=== PATIENT | male | born 1960 | race Caucasian/White ===

== ENCOUNTER 2018-06-16 16:07 | Emergency (ER) | payer BC, SELFPAY ==
[2018-06-06 08:34] VITALS: BMI 25.7
[2018-06-16 16:08] VITALS: BP 142/78; PULSE 81; RESP 16; TEMP 36.4; O2SAT 95; BMI 25.9
--- NOTE | 2018-06-16 16:10 | RAD_ITS ---
STUDY: X-RAY - RIGHT SHOULDER REASON FOR EXAM: Male, 57 years old. Right shoulder pain after a fall TECHNIQUE: 4 view(s) of the shoulder. COMPARISON: None. FINDINGS: Normal glenohumeral articulation. There is degenerative arthrosis of the acromioclavicular joint without inferior osseous spur formation. Normal acromion. Normal humeral head and visualized proximal humerus. The soft tissue structures are unremarkable. Normal visualized pulmonary apex. RAD/Shoulder min 2 Views IMPRESSION: Acromioclavicular joint arthrosis. No fracture or malalignment. Electronically Signed: Heath Iraheta MD at 16:30 EDT , Service support ,
[2018-06-16 18:34] VITALS: RESP 14
--- NOTE | 2018-06-16 18:51 | ED.DCSUM_ITS ---
- ER Visit Summary Date of Service: 06/16/18 Chief Complaint: Right shoulder pain History of Present Illness: The patient is a 57 M with a mechanical slip and fall today landing on his right shoulder. He is complaining of focal pain to the right shoulder. He has no paresthesias. Patient has a history of prostate cancer with bone metastases. Physical Examination: Vital signs unremarkable. Patient sitting upright in bed no acute distress. Head neck examination was no sign of trauma. Heart is regular rate and rhythm. Lung sounds are clear. Right upper extremity examination reveals focal tenderness at the shoulder joint itself. No sign of dislocation. He has no tenderness over the mid to distal humerus or forearm. He has strong distal pulses. Test Results: Right shoulder x-rays were obtained per nursing protocol and show AC joint arthrosis. No evidence of fracture. Emergency Department Course and Treatment: Patient was given p.o. Tylenol and placed in a sling. He does not wish for anything stronger for pain. Treatment Plan: [] Disposition: Discharge Impression: Right shoulder contusion This note was generated with [employer] dictation software. It may contain incorrect words, spelling, and punctuation that were not noted in review of the chart prior to signing ED Disposition - Plan for ED Patient: Referrals: Luis Cooney MD [Primary Care Provider] -
--- NOTE | 2018-06-16 18:51 | ED.DEP ---
ED Disposition - Plan for ED Patient: Disposition: Home or Assisted Living Instructions: ED Contusion Upper Ext Referrals: Luis Cooney MD [Primary Care Provider] -
[2018-06-16] MEDS: Acetaminophen 500 MG Tablet 1000 MG PO (19:00)
[2018-06-16 19:01] VITALS: RESP 18; O2SAT 99
== END 2018-06-16 19:02 | disposition home or self-care (01) ==
PROVIDERS: Emergency Provider Emergency Medicine; Family Provider Internal Medicine Hematology & Oncology; PCP Internal Medicine Hematology & Oncology
DX: S40.011A Contusion of right shoulder, initial encounter (principal); W01.0XXA Fall on same level from slipping, tripping and stumbling without subsequent striking against object, initial encounter; Y93.9 Activity, unspecified; Y92.9 Unspecified place or not applicable
CPT/HCPCS: 73030; 99283

== ENCOUNTER → 2018-07-31 10:10 | Outpatient (CLI) | payer SELFPAY ==
[2018-07-09 09:34] VITALS: BMI 25.9
[2018-07-23 10:03] VITALS: BMI 26.2
--- NOTE | 2018-07-31 10:12 | NM_ITS ---
CLINICAL: 57-year-old male with apparent history of carcinoma of the prostate with recent traumatic fall and resultant right shoulder pain. WHOLE BODY 99m Tc MDP RADIONUCLIDE BONE SCINTIGRAPHY COMPARISON: Plain film radiograph report 06/16/2018, prior whole body bone scintigraphy study dated 12/26/2017 FINDINGS: Following the intravenous administration of 26.8 mCi of 99m Tc MDP, whole body bone images reveal: 1. Focal increased radiopharmaceutical concentration remains apparent in the third thoracic vertebra posteriorly in the midline. 2. Enhanced tracer uptake is persistently defined in the acromioclavicular, sternoclavicular and glenohumeral compartments of both shoulders, first and 12th thoracic vertebra posteriorly on the left and right, eighth thoracic vertebra posteriorly on the left, fifth lumbar vertebra posteriorly on the right, the left posterior midline sacrum, left hip, right-left elbows, left wrist, both knees and right ankle. 3. The remaining skeletal structures are scintigraphically unremarkable with normal-appearing renal images and urinary bladder activity identified. NM/Bone Scan Whole Body IMPRESSION: 1. The increased radiopharmaceutical concentration identified in the third thoracic vertebra may be further investigated with plain film radiography in the setting of known prostate carcinoma if not previously obtained. 2. Degenerative arthritis remains apparent in the thoracic and lumbar spine, sacrum, left hip, bilateral shoulders elbows bilaterally, left wrist, right-left knees and right ankle articulation. 3. Overall compared to the previous whole body bone scintigraphy study dated 12/26/2017, the persistent increase in tracer uptake noted in the third thoracic vertebra warrants further evaluation with plain film radiography is not previously obtained. Otherwise, there is no significant interval change compared to the prior examination. Electronically Signed: Art Addison DO at 10:40 EDT Tel , Service support ,
== END ==
PROVIDERS: Family Provider Family Medicine; PCP Family Medicine; Referring Provider Internal Medicine Hematology & Oncology; Visit Provider Internal Medicine Hematology & Oncology
DX: C61 Malignant neoplasm of prostate (principal); C77.9 Secondary and unspecified malignant neoplasm of lymph node, unspecified; C79.51 Secondary malignant neoplasm of bone; Z79.899 Other long term (current) drug therapy
CPT/HCPCS: 78306

== ENCOUNTER → 2019-03-19 10:18 | Outpatient (CLI) | payer BC, SELFPAY ==
[2019-02-07 11:35] VITALS: BMI 25.4
--- NOTE | 2019-03-19 10:19 | NM_ITS ---
CLINICAL: 58-year-old male with reported history of carcinoma of the prostate. WHOLE BODY 99m Tc MDP RADIONUCLIDE BONE SCINTIGRAPHY COMPARISON: Previous whole body bone scintigraphy study dated 07/31/2018 FINDINGS: Following the intravenous administration of approximately 25.0 mCi of 99m Tc MDP, whole body bone images reveal: 1. Increased radiopharmaceutical concentration is defined in the upper cervical spine posteriorly on the right, lower cervical spine posteriorly on the left, bilateral shoulders, first, third and 12th thoracic vertebra, fifth lumbar vertebra and sacrum, left-right wrists, bilateral elbows, both hip articulations, knees bilaterally. 2. The remaining skeletal structures are scintigraphically unremarkable with normal-appearing renal images and urinary bladder activity identified. The distal lower extremities were not included in the acquisitions provided. NM/Bone Scan Whole Body IMPRESSION: 1. The increase in radiopharmaceutical concentration identified in the cervical thoracic and lumbar spine, both shoulders, sacrum, wrist and elbow articulations bilaterally, right and left hips, both knees is commensurate with degenerative arthritis. 2. Overall compared to the previous whole body bone scintigraphy study dated 07/31/2018, there is no significant interval change. There is no present typical scintigraphic evidence of diffuse axial skeletal metastatic disease. Electronically Signed: Art Addison DO at 10:58 EST Tel , Service support ,
[2019-03-19 10:48] LABS: Absolute Lymphocyte Count 1.51 X10^3/uL (0.83-4.51); Absolute Neutrophil Count 2.3 X10^3/uL (2.0-7.7); Basophil# 0.02 X10^3/uL; Basophil% 0.4 % (0-1); Eosinophil# 0.26 X10^3/uL; Eosinophils% 5.7 % (0-5); Hematocrit 44.3 % (40-54); Hemoglobin 14.8 g/dL (13.0-16.5); Lymphocyte # 1.51 X10^3/ul (4.0); Mean Corp Hgb Conc 33.4 g/dL (32-36); Mean Corpuscular Hgb 29.9 pg (27.0-32.0); Mean Corpuscular Volume 89.5 fL (80-94); Monocyte# 0.44 X10^3/uL; Monocyte% 9.6 % (0-10); NRBC Flagged by Analyzer 0 % (0-5); Neutrophil # 2.33 X10^3/uL (2.7-7.7); Neutrophil % 50.9 % (47-70); Platelet Count 250 K/mm3 (150-450); RBC Distribution Width CV 11.6 % (11.6-14.6); RBC Distribution Width SD 37.8 fl (35.1-43.9); Red Blood Count 4.95 M/mm3 (4.6-6.2); White Blood Count 4.6 K/mm3 (4.4-11.0)
[2019-03-19 11:20] LABS: PSA,Total- Diagnostic 0.48 ng/mL (0.0-4.0)
[2019-03-19 11:24] LABS: AST(SGOT) 31 U/L (15-37); Alanine Aminotransfer ALT/SGPT 58 U/L (16-61); Albumin, Serum 3.8 g/dL (3.2-5.0); Alkaline Phosphatase 61 U/L (45-117); Anion Gap 5 (5-15); BUN 22 mg/dL (7-18); BUN/Creat Ratio 23.6 RATIO (10-20); Chloride 104 mmol/L (98-107); Creatinine, Serum 0.93 mg/dL (0.70-1.30); EST Glomerular Filtration Rate 89 mL/min (>60); Est Glom Filt Rate - Afr Amer 107 mL/min (>60); Globulin 3.7 g/dL (2.2-4.2); Glucose 94 mg/dL (74-106); Potassium 4.4 mmol/L (3.5-5.1); Protein, Total 7.5 g/dL (6.4-8.2); Sodium Level 138 mmol/L (136-145)
[2019-03-19 18:32] LABS: Xtra Tube EP Lab EXTRA TUBE
== END ==
PROVIDERS: Referring Provider Internal Medicine Hematology & Oncology; Visit Provider Internal Medicine Hematology & Oncology
DX: C61 Malignant neoplasm of prostate (principal); C79.51 Secondary malignant neoplasm of bone; C77.9 Secondary and unspecified malignant neoplasm of lymph node, unspecified
CPT/HCPCS: 36415; 78306; 80053; 84153; 85025

== ENCOUNTER → 2019-10-17 07:54 | Outpatient (CLI) | payer BC, SELFPAY ==
[2019-09-10 11:33] VITALS: BMI 25.2
--- NOTE | 2019-10-17 07:55 | NM_ITS ---
CLINICAL: 59-year-old male with reported history of carcinoma of the prostate. WHOLE BODY 99m Tc MDP RADIONUCLIDE BONE SCINTIGRAPHY COMPARISON: Previous whole body bone scintigraphy study dated 03/19/2019 FINDINGS: Following the intravenous administration of 27.0 mCi of 99m Tc MDP, whole body bone images reveal: 1. Increased radiopharmaceutical concentration is redemonstrated in the upper cervical spine posteriorly on the right, mid cervical spine posteriorly on the left, third thoracic vertebra posteriorly in the midline, the acromioclavicular, sternoclavicular and glenohumeral compartments of both shoulders, the left elbow, fifth lumbar vertebra posteriorly on the right, left posterior sacrum, bilateral knees, right ankle, the left wrist. 2. The remaining skeletal structures are scintigraphically unremarkable with normal-appearing renal images and urinary bladder activity identified. NM/Bone Scan Whole Body IMPRESSION: 1. The increase in radiopharmaceutical distribution currently defined in the cervical, thoracic and lumbar spine, sacrum, bilateral shoulders, left elbow, right-left knees, the right ankle and left wrist are commensurate with degenerative arthritis. 2. Overall compared to the previous whole body bone scintigraphy study dated 03/19/2019, there is no significant interval change. No current typical scintigraphic evidence of diffuse axial skeletal metastatic disease is demonstrated on the present examination. Electronically Signed: Art Addison DO at 23:37 EDT Tel , Service support ,
[2019-10-17 08:14] LABS: Absolute Lymphocyte Count 1.91 X10^3/uL (0.83-4.51); Absolute Neutrophil Count 2.4 X10^3/uL (2.0-7.7); Basophil# 0.04 X10^3/uL; Basophil% 0.8 % (0-1); Eosinophil# 0.44 X10^3/uL; Eosinophils% 8.3 % (0-5); Hematocrit 43.7 % (40-54); Hemoglobin 14.4 g/dL (13.0-16.5); Lymphocyte # 1.91 X10^3/ul (4.0); Lymphocyte % 36.2 % (19-41); Mean Corpuscular Hgb 30.1 pg (27.0-32.0); Mean Corpuscular Volume 91.2 fL (80-94); Mean Platelet Vol. 9.2 fl (6.2-12.0); Monocyte# 0.52 X10^3/uL; Monocyte% 9.8 % (0-10); NRBC Flagged by Analyzer 0 % (0-5); Neutrophil # 2.35 X10^3/uL (2.7-7.7); Neutrophil % 44.5 % (47-70); Platelet Count 235 K/mm3 (150-450); RBC Distribution Width CV 12.1 % (11.6-14.6); RBC Distribution Width SD 40.7 fl (35.1-43.9); Red Blood Count 4.79 M/mm3 (4.6-6.2); White Blood Count 5.3 K/mm3 (4.4-11.0)
[2019-10-17 08:48] LABS: ALB/GLOB Ratio 1.1 RATIO (0.9-2.4); AST(SGOT) 21 U/L (15-37); Alanine Aminotransfer ALT/SGPT 32 U/L (16-61); Albumin, Serum 3.7 g/dL (3.2-5.0); Alkaline Phosphatase 61 U/L (45-117); Anion Gap 3 (5-15); BUN 20 mg/dL (7-18); BUN/Creat Ratio 20.9 RATIO (10-20); Calcium,Total 9.2 mg/dL (8.5-10.1); Chloride 104 mmol/L (98-107); Creatinine, Serum 0.96 mg/dL (0.70-1.30); EST Glomerular Filtration Rate 86 mL/min (>60); Est Glom Filt Rate - Afr Amer 104 mL/min (>60); Globulin 3.5 g/dL (2.2-4.2); Glucose 81 mg/dL (74-106); PSA,Total- Diagnostic 0.58 ng/mL (0.0-4.0); Potassium 3.9 mmol/L (3.5-5.1); Protein, Total 7.2 g/dL (6.4-8.2); Sodium Level 137 mmol/L (136-145)
[2019-10-17 15:59] LABS: Xtra Tube EP Lab EXTRA TUBE
== END ==
PROVIDERS: Referring Provider Internal Medicine Hematology & Oncology; Visit Provider Internal Medicine Hematology & Oncology
DX: C61 Malignant neoplasm of prostate (principal); C79.51 Secondary malignant neoplasm of bone; C77.9 Secondary and unspecified malignant neoplasm of lymph node, unspecified
CPT/HCPCS: 36415; 78306; 80053; 84153; 85025

== ENCOUNTER → 2020-01-10 07:44 | Outpatient (CLI) | payer BC, SELFPAY ==
[2019-10-22 11:23] VITALS: BMI 25.3
[2020-01-10 08:15] LABS: Absolute Lymphocyte Count 2.23 X10^3/uL (0.83-4.51); Absolute Neutrophil Count 1.7 X10^3/uL (2.0-7.7); Basophil# 0.03 X10^3/uL; Basophil% 0.6 % (0-1); Eosinophil# 0.41 X10^3/uL; Eosinophils% 8.4 % (0-5); Hematocrit 43.6 % (40-54); Hemoglobin 14.3 g/dL (13.0-16.5); Lymphocyte # 2.23 X10^3/ul (4.0); Lymphocyte % 45.4 % (19-41); Mean Corp Hgb Conc 32.8 g/dL (32-36); Mean Corpuscular Hgb 30.2 pg (27.0-32.0); Mean Corpuscular Volume 92.2 fL (80-94); Mean Platelet Vol. 9.2 fl (6.2-12.0); Monocyte# 0.52 X10^3/uL; Monocyte% 10.6 % (0-10); NRBC Flagged by Analyzer 0 % (0-5); Neutrophil # 1.71 X10^3/uL (2.7-7.7); Neutrophil % 34.8 % (47-70); Platelet Count 223 K/mm3 (150-450); RBC Distribution Width CV 11.9 % (11.6-14.6); RBC Distribution Width SD 40.7 fl (35.1-43.9); Red Blood Count 4.73 M/mm3 (4.6-6.2); White Blood Count 4.9 K/mm3 (4.4-11.0)
[2020-01-10 08:46] LABS: ALB/GLOB Ratio 1.1 RATIO (0.9-2.4); AST(SGOT) 20 U/L (15-37); Alanine Aminotransfer ALT/SGPT 30 U/L (16-61); Albumin, Serum 3.7 g/dL (3.2-5.0); Alkaline Phosphatase 52 U/L (45-117); Anion Gap 4 (5-15); BUN 18 mg/dL (7-18); BUN/Creat Ratio 20.1 RATIO (10-20); Calcium,Total 9.3 mg/dL (8.5-10.1); Chloride 106 mmol/L (98-107); EST Glomerular Filtration Rate 93 mL/min (>60); Est Glom Filt Rate - Afr Amer 112 mL/min (>60); Globulin 3.5 g/dL (2.2-4.2); Glucose 91 mg/dL (74-106); PSA,Total- Diagnostic 1.04 ng/mL (0.0-4.0); Protein, Total 7.2 g/dL (6.4-8.2); Sodium Level 141 mmol/L (136-145)
[2020-01-10 15:47] LABS: Xtra Tube EP Lab EXTRA TUBE
== END ==
PROVIDERS: Referring Provider Internal Medicine Hematology & Oncology; Visit Provider Internal Medicine Hematology & Oncology
DX: C61 Malignant neoplasm of prostate (principal); C77.9 Secondary and unspecified malignant neoplasm of lymph node, unspecified; C79.51 Secondary malignant neoplasm of bone
CPT/HCPCS: 36415; 80053; 84153; 85025

== ENCOUNTER → 2020-03-18 10:02 | Outpatient (CLI) | payer BC, SELFPAY ==
[2020-01-14 13:53] VITALS: BMI 25.4
[2020-02-25 13:31] VITALS: BMI 25.7
--- NOTE | 2020-03-18 10:04 | NM_ITS ---
CLINICAL: 59-year-old male with history of carcinoma of the prostate. WHOLE BODY 99m Tc MDP RADIONUCLIDE BONE SCINTIGRAPHY COMPARISON: Previous whole body bone scintigraphy study dated 10/17/2019 FINDINGS: Following the intravenous administration of approximately 25.0 mCi of 99m Tc MDP, whole body bone images reveal: 1. There is persistent increased tracer concentration observed in the cervical, thoracic and lumbar spine, bilateral shoulders, both knee articulations, right and left wrists, the sacrum. 2. The remaining skeletal structures are scintigraphically unremarkable with normal-appearing renal images and urinary bladder activity identified. NM/Bone Scan Whole Body IMPRESSION: 1. The increase in tracer distribution defined in the cervical, thoracic and lumbar spine, sacrum, right and left shoulders, knees bilaterally, both wrist articulations is commensurate with degenerative arthritis. 2. Overall compared to the previous whole body bone scintigraphy study dated 10/17/2019, there is no significant interval change. No current typical scintigraphic evidence of skeletal metastatic disease is demonstrated on the current examination. Electronically Signed: Art Addison DO at 23:08 EST Tel , Service support ,
== END ==
PROVIDERS: Referring Provider Internal Medicine Hematology & Oncology; Visit Provider Internal Medicine Hematology & Oncology
DX: C61 Malignant neoplasm of prostate (principal); C77.9 Secondary and unspecified malignant neoplasm of lymph node, unspecified; C79.51 Secondary malignant neoplasm of bone
CPT/HCPCS: 78306

== ENCOUNTER → 2020-04-20 13:27 | Outpatient (CLI) | payer BC, SELFPAY ==
[2020-03-31 13:34] VITALS: BMI 25.7
--- NOTE | 2020-04-20 13:40 | RAD_ITS ---
STUDY: X-RAY CHEST REASON FOR EXAM: Male, 59 years old. NO CHEST COMPLAINTS, PROSTATE CA TECHNIQUE: PA and lateral views of the chest. COMPARISON: CT chest September 21, 2017 FINDINGS: The lungs are clear and expanded. There is no demonstrated pleural abnormality. Normal size heart. Normal mediastinum and jorge. Normal visualized pulmonary arteries. Normal visualized aortic arch and descending thoracic aorta. There are diffuse degenerative changes of the visualized thoracic spine. There is mild bony osteopenia. Normal visualized ribs, clavicles, and shoulders. There is no demonstrated abnormality of the visualized soft tissue structures of the upper abdomen. RAD/Chest PA and Lateral IMPRESSION: No demonstrated acute cardiopulmonary process. Electronically Signed: Prachi Graham MD at 4:03 EST Tel , Service support ,
--- NOTE | 2020-04-20 13:40 | CT_ITS ---
STUDY: CT ABDOMEN AND PELVIS WITH CONTRAST REASON FOR EXAM: Male, 59 years old. F/U PROSTATE CANCER. No surgery. Last chemo 1.5yr ago. No problems RADIATION DOSAGE (If Supplied By Facility): CTDIvol = ( 12.30 ) mGy, DLP = ( 809.01 ) mGycm TECHNIQUE: Transaxial images were obtained from the dome of the diaphragm to the symphysis pubis with oral contrast. Oral and amp; IV Read i-CAT and amp; 100mL Isovue-300 was administered. Sagittal and coronal images were reconstructed. Individualized dose optimization techniques were used for this CT. COMPARISON: Comparison CT chest September 21, 2017. FINDINGS: The visualized lung bases are unremarkable. The visualized portions of the heart are within normal limits. Normal liver. Normal gallbladder and extrahepatic biliary system. Normal spleen. Normal pancreas. Normal bilateral adrenal glands. Normal right kidney. There is a small cyst in the left kidney kidney measuring 4.3 mm. There is a minimal hiatal hernia. Normal small intestine. There is abundant stool in the colon from the cecum to the rectum. The appendix is visualized and appears normal. Normal abdominal aorta. Normal inferior vena cava. There are reactive potentially metastatic lymph nodes in the left and midline retroperitoneum measuring 1.2 cm and 1.5 cm and 1.0 cm. Distal to the bifurcation there is a lymph node to the left of midline measuring 1.0 cm. There is a lymph node measuring 2.3 x 1.9 cm. Image #70. There is mild stranding in the left iliac chain. There is a lymph node measuring 1.9 cm. There is a lymph node in the left iliac chain measuring 2.2 x 1.6 cm. Prostate measures 2.2 x 4.1 cm. There is a small umbilical hernia containing fat. There is multilevel spondylosis disc space narrowing. At the level of L3-L4 L4-L5 there is severe disc space narrowing spondylosis, vacuum phenomenon. There is bilateral neural foraminal narrowing. There is neural foramina narrowing at L4-L5 with moderate neural foraminal narrowing without central stenosis. There is a pars defect at the level of L5. There is disc space narrowing and slight anterolisthesis. The bony structures are minimally inhomogeneous. There are not multiple solid lytic or sclerotic lesions. There is a nonspecific 4 mm sclerotic lesion within the right symphysis pubis. CT/Abdomen/Pelvis WITH Contrast IMPRESSION: Left-sided retroperitoneal lymphadenopathy. Lymphadenopathy in the left iliac chain. Recommend correlation with clinical history. Although potentially metastatic disease could have this appearance consider possible inflammatory change versus the possibility of etiologies such as lymphoma. Consider left lower extremity venous ultrasound. Minimal lower lobe atelectasis and/or scarring. No appendicitis. Small cyst left kidney. Constipation. Normal sized prostate. Multilevel degenerative change in the lumbar spine including pars defect L5. Electronically Signed: Prachi Graham MD at 5:15 EST Tel , Service support ,
[2020-04-20 13:55] LABS: CREATININE FINGERSTICK 1.1 mg/dL (0.70-1.30)
[2020-04-20 14:17] LABS: Absolute Lymphocyte Count 1.64 X10^3/uL (0.83-4.51); Absolute Neutrophil Count 1.9 X10^3/uL (2.0-7.7); Basophil# 0.03 X10^3/uL; Basophil% 0.7 % (0-1); Eosinophil# 0.21 X10^3/uL; Eosinophils% 4.9 % (0-5); Hematocrit 44.8 % (40-54); Hemoglobin 14.5 g/dL (13.0-16.5); Lymphocyte # 1.64 X10^3/ul (4.0); Lymphocyte % 38.5 % (19-41); Mean Corp Hgb Conc 32.4 g/dL (32-36); Mean Corpuscular Hgb 29.4 pg (27.0-32.0); Mean Corpuscular Volume 90.7 fL (80-94); Mean Platelet Vol. 9.7 fl (6.2-12.0); Monocyte# 0.49 X10^3/uL; Monocyte% 11.5 % (0-10); NRBC Flagged by Analyzer 0 % (0-5); Neutrophil # 1.88 X10^3/uL (2.7-7.7); Neutrophil % 44.2 % (47-70); Platelet Count 260 K/mm3 (150-450); RBC Distribution Width CV 12.2 % (11.6-14.6); RBC Distribution Width SD 40.5 fl (35.1-43.9); Red Blood Count 4.94 M/mm3 (4.6-6.2); White Blood Count 4.3 K/mm3 (4.4-11.0)
[2020-04-20 14:58] LABS: ALB/GLOB Ratio 1.1 RATIO (0.9-2.4); AST(SGOT) 22 U/L (15-37); Alanine Aminotransfer ALT/SGPT 31 U/L (16-61); Albumin, Serum 3.9 g/dL (3.2-5.0); Alkaline Phosphatase 56 U/L (45-117); Anion Gap 6 (5-15); BUN 18 mg/dL (7-18); BUN/Creat Ratio 20.3 RATIO (10-20); Chloride 102 mmol/L (98-107); Creatinine, Serum 0.89 mg/dL (0.70-1.30); EST Glomerular Filtration Rate 93 mL/min (>60); Est Glom Filt Rate - Afr Amer 113 mL/min (>60); Globulin 3.7 g/dL (2.2-4.2); Glucose 95 mg/dL (74-106); PSA,Total- Diagnostic 1.87 ng/mL (0.0-4.0); Potassium 4.2 mmol/L (3.5-5.1); Protein, Total 7.6 g/dL (6.4-8.2); Sodium Level 137 mmol/L (136-145)
== END ==
PROVIDERS: Referring Provider Internal Medicine Hematology & Oncology; Visit Provider Internal Medicine Hematology & Oncology
DX: C61 Malignant neoplasm of prostate (principal); C77.9 Secondary and unspecified malignant neoplasm of lymph node, unspecified; C79.51 Secondary malignant neoplasm of bone
CPT/HCPCS: 36415; 71046; 74177; 80053; 84153; 85025; Q9967

== ENCOUNTER → 2020-08-05 13:03 | Outpatient (CLI) | payer BC, SELFPAY ==
[2020-06-30 14:45] VITALS: BMI 25.3
--- NOTE | 2020-08-05 13:07 | CT_ITS ---
STUDY: CT CHEST, ABDOMEN T PELVIS WITH CONTRAST REASON FOR EXAM: Male, 59 years old. FOLLOW UP METASTATIC PROSTATE CANCER RADIATION DOSAGE (If Supplied By Facility): CTDIvol = ( 13.55 ) mGy, DLP = ( 1194.29 ) mGycm TECHNIQUE: Transaxial imaging was performed following intravenous administration of IV 100mL Isovue-300. Multiplanar coronal and sagittal images were reformatted. Individualized dose optimization techniques were used for this CT. COMPARISON: Prior chest CT exam of 09/21/2017 and abdomen and pelvic CT exam of 04/20/2020 FINDINGS: CHEST Bibasilar platelike areas of fibrotic change modestly increased from prior exam without focal consolidation or other infiltrates. Stable 4 mm nodule of the right upper lobe, image 32 series 6. Normal heart and pericardium. Normal mediastinum. Normal hilar regions. Normal unenhanced pulmonary arteries. Minimal plaque and mild elongation of the thoracic aorta. New 6 mm osteoblastic lesion of T 13. He has 13 rib-bearing vertebral bodies. Stable 3 mm osteoblastic lesion of the sternum. ABDOMEN AND PELVIS Normal liver. Normal gallbladder and extrahepatic biliary system. Normal spleen. Normal pancreas. Normal bilateral adrenal glands. Normal right kidney. Stable subcentimeter cysts of the left kidney. Otherwise normal left kidney. Normal visualized stomach. Normal small intestine. Normal colon. The appendix is visualized and appears normal. Normal abdominal aorta. Normal inferior vena cava. Stable shotty left periaortic lymph nodes of the upper abdomen. Stable left iliac lymph nodes not changed in number or size. The largest group of juxtaposed nodes are to the left of the aortic and iliac bifurcation measuring approximately 3.2 x 4.60 cm similar in size to prior exam on comparable imaging. Additional stable enlarged lymph nodes in the left iliac chain and minimal shotty inguinal lymph nodes bilaterally. Subcutaneous nodules of the abdomen most likely secondary to injection. Minimal fatty umbilical hernia. Stable 3 mm osteoblastic lesion of S1. New 6 mm osteoblastic lesion at T 13. Stable 3 mm osteoblastic lesion of the superior right pubic ramus. 2 mm osteoblastic lesion of the inferior right pubic ramus. Normal urinary bladder. No enlargement of the prostate. CT/CT Chest, Abd, Pel w/Contrast IMPRESSION: No acute cardiopulmonary findings. Increase mild fibrotic bibasilar changes. Stable 4 mm nodule of the right upper lobe. Stable subcentimeter/shotty periaortic lymph nodes and stable adenopathy of the left iliac chain as described above. New faintly osteoblastic 6 mm lesion of T 13, 13 rib bearing vertebral bodies. Stable other osseous sclerotic lesions in the sternum, S1, right superior and inferior pubic rami. These are very small and dense and could be bone islands rather than metastatic disease. No additional acute abdominal or pelvic findings. Electronically Signed: Minerva Nelson MD at 17:17 EDT , Service support ,
[2020-08-05 13:31] LABS: CREATININE FINGERSTICK 0.9 mg/dL (0.70-1.30); EGFR FINGERSTICK > 60.0000 mL/min (>60)
== END ==
PROVIDERS: Referring Provider Internal Medicine Hematology & Oncology; Visit Provider Internal Medicine Hematology & Oncology
DX: C61 Malignant neoplasm of prostate (principal)
CPT/HCPCS: 71260; 74177; Q9967

== ENCOUNTER → 2020-08-07 10:15 | Outpatient (CLI) | payer BC, SELFPAY ==
[2020-06-30 14:45] VITALS: BMI 25.3
--- NOTE | 2020-08-07 10:19 | NM_ITS ---
CLINICAL: 59-year-old male with reported history of carcinoma of the prostate. WHOLE BODY 99m Tc MDP RADIONUCLIDE BONE SCINTIGRAPHY COMPARISON: Previous whole body bone scintigraphy study dated 03/18/2020 FINDINGS: Following the intravenous administration of 26.0 mCi of 99m Tc MDP, whole body bone images reveal: 1. Increased radiopharmaceutical concentration is currently defined in the acromioclavicular, sternoclavicular and glenohumeral compartments of both shoulders, mid cervical spine posteriorly on the left and right, third thoracic vertebra posteriorly in the midline, fifth lumbar vertebra posteriorly on the right, left posterior midline sacrum, bilateral elbows, both wrists, hands bilaterally, right-left knees, medial compartment of the right ankle. 2. The remaining skeletal structures are scintigraphically unremarkable with normal-appearing renal images and urinary bladder activity identified. NM/Bone Scan Whole Body IMPRESSION: 1. The increase in tracer distribution defined in the bilateral shoulders, right and left elbows, wrists bilaterally, bilateral hands, cervical, thoracic and lumbar spine and sacrum, both knee articulations and right ankle is most consistent with degenerative arthritis. 2. Overall compared to the previous whole body bone scintigraphy study dated 03/18/2020, there is no significant interval change. No current typical scintigraphic evidence of diffuse axial skeletal metastatic disease is noted on the current examination. Electronically Signed: Art Addison DO at 23:06 EDT Tel , Service support ,
== END ==
PROVIDERS: Referring Provider Internal Medicine Hematology & Oncology; Visit Provider Internal Medicine Hematology & Oncology
DX: C61 Malignant neoplasm of prostate (principal); C77.9 Secondary and unspecified malignant neoplasm of lymph node, unspecified; C79.51 Secondary malignant neoplasm of bone
CPT/HCPCS: 78306; A9503

== ENCOUNTER 2021-04-23 15:12 | Outpatient (CLI) | payer BC, SELFPAY ==
[2021-04-23 15:54] LABS: Absolute Lymphocyte Count 1.04 X10^3/uL (0.83-4.51); Absolute Neutrophil Count 3.7 X10^3/uL (2.0-7.7); Basophil# 0.02 X10^3/uL; Basophil% 0.4 % (0-1); Eosinophil# 0.03 X10^3/uL; Eosinophils% 0.6 % (0-5); Hematocrit 42.6 % (40-54); Hemoglobin 14.2 g/dL (13.0-16.5); Lymphocyte # 1.04 X10^3/ul (0.83-4.51); Mean Corp Hgb Conc 33.3 g/dL (32-36); Mean Corpuscular Hgb 30.3 pg (27.0-32.0); Mean Platelet Vol. 9.6 fl (6.2-12.0); Monocyte# 0.41 X10^3/uL; Monocyte% 7.9 % (0-10); NRBC Flagged by Analyzer 0 % (0-5); Neutrophil # 3.69 X10^3/uL (2.7-7.7); Neutrophil % 70.9 % (47-70); Platelet Count 243 K/mm3 (150-450); RBC Distribution Width CV 12.4 % (11.6-14.6); RBC Distribution Width SD 41.2 fl (35.1-43.9); Red Blood Count 4.68 M/mm3 (4.6-6.2); White Blood Count 5.2 K/mm3 (4.4-11.0)
[2021-04-23 16:27] LABS: ALB/GLOB Ratio 1.1 RATIO (0.9-2.4); AST(SGOT) 29 U/L (15-37); Alanine Aminotransfer ALT/SGPT 47 U/L (16-61); Albumin, Serum 3.6 g/dL (3.2-5.0); Alkaline Phosphatase 49 U/L (45-117); Anion Gap 5 (5-15); BUN 24 mg/dL (7-18); Calcium,Total 8.9 mg/dL (8.5-10.1); Chloride 108 mmol/L (98-107); EST Glomerular Filtration Rate 81 mL/min (>60); Est Glom Filt Rate - Afr Amer 98 mL/min (>60); Globulin 3.4 g/dL (2.2-4.2); Glucose 85 mg/dL (74-106); PSA,Total- Diagnostic 0.06 ng/mL (0.0-4.0); Potassium 3.9 mmol/L (3.5-5.1); Sodium Level 141 mmol/L (136-145)
== END 2021-04-23 23:59 | disposition home or self-care (01) ==
LOC: LAB 15:12
PROVIDERS: Visit Provider Nurse Practitioner Family
DX: C61 Malignant neoplasm of prostate (principal)
CPT/HCPCS: 36415; 80053; 84153; 85025

== ENCOUNTER → 2022-06-27 | Outpatient (CLI) | payer BC, SELFPAY ==
--- NOTE | 2022-06-27 10:30 | NM_ITS ---
CLINICAL: 61-year-old male with history of primary prostate carcinoma. WHOLE BODY 99m Tc MDP RADIONUCLIDE BONE SCINTIGRAPHY COMPARISON: Whole body bone scintigraphy study dated 08/07/2020 FINDINGS: Following the intravenous administration of 27.1 mCi of 99m Tc MDP, whole body bone images reveal: 1. There is increased radiopharmaceutical distribution noted in the acromioclavicular, sternoclavicular and glenohumeral compartments of both shoulders, the elbow and wrist articulations bilaterally, both knees, the mid cervical spine posteriorly on the right, the bilateral sacroiliac joints, the thoracic and lumbar vertebra. 2. Facilitated uptake is noted in the left anterior fourth rib at the costochondral junction 3. The remaining skeletal structures are scintigraphically unremarkable with normal-appearing renal images and urinary bladder activity identified. NM/Bone Scan Whole Body IMPRESSION: 1. The multifocal increase in radiopharmaceutical concentration defined in the bilateral shoulder, elbow and wrist articulations, the knees bilaterally, the cervical, thoracic and lumbar spine, the sacroiliac joints bilaterally consistent with degenerative arthritis. Correlation with plain film radiography is recommended in the thoracic, lumbar spine and pelvis. 2. Enhanced tracer distribution defined in the left anterior fourth rib the costochondral junction is most consistent with trauma-fracture. 3. Overall compared to the previous whole body bone scintigraphy study dated 08/07/2020, there is continued demonstration of diffuse degenerative changes with newly identified uptake noted in the thoracic and lumbar spine as well as pelvis warranting further evaluation with plain film x-ray. Electronically Signed: Art Addison, at 22:18 EDT ,
== END | disposition home or self-care (01) ==
PROVIDERS: PCP Physician Assistant; Referring Provider Internal Medicine Hematology & Oncology; Visit Provider Internal Medicine Hematology & Oncology
DX: C61 Malignant neoplasm of prostate (principal); C79.51 Secondary malignant neoplasm of bone; C77.9 Secondary and unspecified malignant neoplasm of lymph node, unspecified
CPT/HCPCS: 78306; A9503

== ENCOUNTER → 2022-07-06 | Outpatient (CLI) | payer BC, SELFPAY ==
--- NOTE | 2022-07-06 13:37 | CT_ITS ---
STUDY: CT CHEST, ABDOMEN T PELVIS WITH CONTRAST REASON FOR EXAM: Male, 61 years old. F/U METASTATIC PROSTATE CANCER; IV CONTRAST ONLY RADIATION DOSAGE (If Supplied By Facility): CTDIvol = ( 15.86 ) mGy, DLP = ( 1386.92 ) mGycm TECHNIQUE: Transaxial imaging was performed following intravenous administration of IV 100mL Isovue-300. Multiplanar coronal and sagittal images were reformatted. Individualized dose optimization techniques were used for this CT. COMPARISON: Comparison is made with prior examination dated August 05, 2020. FINDINGS: CHEST Stable small benign-appearing bilateral axillary lymph nodes. Stable mild degree of linear scarring at the lung bases. There is no demonstrated pleural abnormality. Normal heart and pericardium. Normal mediastinum. Normal hilar regions. Normal unenhanced pulmonary arteries. Normal aorta arch and descending thoracic aorta. There are multi-level degenerative changes of the thoracic spine. Stable 3 mm rounded sclerotic density in the posterior left side of the superior aspect of the body of the sternum. Stable focal sclerosis in the body of the T3 vertebrae. There is no demonstrated abnormality of the visualized upper abdomen. ABDOMEN Normal liver. Normal gallbladder and extrahepatic biliary system. Normal spleen. Normal pancreas. Normal bilateral adrenal glands. Normal right kidney. Normal left kidney. Normal visualized stomach. Normal small intestine. Normal colon. The appendix is visualized and appears normal. Normal abdominal aorta. Normal inferior vena cava. There is borderline retroperitoneal lymphadenopathy with enlarged nodes no greater than 10mm in the short axis diameter. Residual small lymph nodes are seen in the left iliac chain. These have decreased in size. There is a small umbilical hernia containing fat. There are diffuse degenerative changes of the visualized lumbar spine. PELVIS Normal urinary bladder. Normal visualized small intestine. Normal visualized colon. There is no pelvic fluid. There is no pelvic lymphadenopathy or mass lesion. Normal visualized pelvic arteries. CT/CT Chest, Abd, Pel w/Contrast IMPRESSION: Essentially stable examination except for interval decrease in size of the lymph nodes seen in the left iliac chain. Electronically Signed: Chucky Monsivais MD at 15:19 EDT ,
== END | disposition home or self-care (01) ==
LOC: CT 13:36
PROVIDERS: PCP Physician Assistant; Referring Provider Internal Medicine Hematology & Oncology; Visit Provider Internal Medicine Hematology & Oncology
DX: C61 Malignant neoplasm of prostate (principal); C79.51 Secondary malignant neoplasm of bone; C77.9 Secondary and unspecified malignant neoplasm of lymph node, unspecified
CPT/HCPCS: 71260; 74177; Q9967

== ENCOUNTER → 2023-02-13 | Outpatient (CLI) | payer BC, SELFPAY ==
--- NOTE | 2023-02-13 06:50 | CT_ITS ---
STUDY: CT CHEST, ABDOMEN T PELVIS WITH CONTRAST REASON FOR EXAM: Male, 62 years old. PROSTATE CANCER IV CONTRAST ONLY RADIATION DOSAGE (If Supplied By Facility): CTDIvol = ( 17.50 ) mGy, DLP = ( 1440.78 ) mGycm TECHNIQUE: Transaxial imaging was performed following intravenous administration of IV 100mL Isovue-370. Individualized dose optimization techniques were used for this CT. COMPARISON: Prior study dated: 07/06/2022 FINDINGS: CHEST Bilateral lower lung stranding consistent with scarring unchanged. No evidence of pulmonary nodules. There is no demonstrated pleural abnormality. Normal heart and pericardium. Normal mediastinum. Normal hilar regions. Normal unenhanced pulmonary arteries. There is atherosclerotic calcification of the aortic arch. There are degenerative changes of the thoracic spine. No evidence of destructive bony process ABDOMEN AND PELVIS Normal liver. Normal gallbladder and extrahepatic biliary system. Normal spleen. Normal pancreas. Normal bilateral adrenal glands. 2 small simple cysts in the left kidney for which no further follow-up exam is needed. No evidence of hydronephrosis. Normal visualized stomach. Normal in caliber small bowel loops. Fecal retention. No evidence of acute diverticulitis. There is non-visualization of the appendix. Tortuosity of the abdominal aorta without evidence of aneurysm. Normal inferior vena cava. Stable small retroperitoneal nodes in the left periorbital region and left iliac chain nodes essentially unchanged. There is a small umbilical hernia containing fat. Benign-appearing left subcutaneous nodule. The urinary bladder is not well distended. 1.5 cm nodular density on the right side of the prostate indenting the right side of the bladder base could represent part of the prostate gland. Correlation with PET scan might be of value. There is no pelvic fluid. Degenerative changes in the spine. Left hip pinning. No evidence of destructive bony process. CT/CT Chest, Abd, Pel w/Contrast IMPRESSION: 1. Nodular density on the right side of the prostate bed could be prostate tissue. Correlation with PET scan is recommended. 2. Otherwise no significant change since the previous exam. 3. No evidence of new metastatic disease. Electronically Signed: Alvaro Gonzalez MD at 8:35 EST ,
== END | disposition home or self-care (01) ==
PROVIDERS: PCP Physician Assistant; Referring Provider Internal Medicine Hematology & Oncology; Visit Provider Internal Medicine Hematology & Oncology
DX: C61 Malignant neoplasm of prostate (principal); C79.51 Secondary malignant neoplasm of bone; C77.9 Secondary and unspecified malignant neoplasm of lymph node, unspecified
CPT/HCPCS: 71260; 74177; Q9967; A4216

== ENCOUNTER → 2023-02-20 | Outpatient (CLI) | payer BC, SELFPAY ==
--- NOTE | 2023-02-20 07:10 | NM_ITS ---
CLINICAL: 61-year-old male with known carcinoma of the prostate. WHOLE BODY 99m Tc MDP RADIONUCLIDE BONE SCINTIGRAPHY COMPARISON: Previous whole body bone scintigraphy study dated 06/27/2022 FINDINGS: Following the intravenous administration of 29.0 mCi of 99m Tc MDP, whole body bone images reveal: 1. Increased radiopharmaceutical concentration is redefined in the left anterior chest wall in the region of the fourth rib adjacent to the costochondral junction. 2. Newly identified enhanced tracer uptake is noted in the distal left femoral diaphysis and proximal femoral metaphysis-diaphysis. 3. Enhanced uptake is noted in the left midfoot, the medial tibial compartments of both knees, the patellofemoral compartment of the right knee, the mid and lower cervical spine posteriorly on the left and right, the third thoracic, second and fifth lumbar vertebra, the sacrum posteriorly on the left, the shoulders bilaterally. 4. The remaining skeletal structures are scintigraphically unremarkable with normal-appearing renal images and urinary bladder activity identified. NM/Bone Scan Whole Body IMPRESSION: 1. The increase in tracer uptake noted in the left anterior chest wall consistent with trauma fracture. 2. Newly identified increased uptake noted in the proximal left femoral metaphysis, diaphysis and distal left femoral diaphysis may represent trauma-fracture or orthopedic hardware placement. Further evaluation with plain film radiography is recommended. 3. Degenerative changes are defined in the bilateral knee and shoulder articulations, the cervical, thoracic and lumbar spine, the sacrum and left midfoot. Electronically Signed: Art Addison DO at 22:29 EST ,
== END | disposition home or self-care (01) ==
LOC: NM 07:10
PROVIDERS: PCP Physician Assistant; Referring Provider Internal Medicine Hematology & Oncology; Visit Provider Internal Medicine Hematology & Oncology
DX: C61 Malignant neoplasm of prostate (principal); C79.51 Secondary malignant neoplasm of bone; C77.9 Secondary and unspecified malignant neoplasm of lymph node, unspecified
CPT/HCPCS: 78306; A9503

== ENCOUNTER → 2025-03-10 | Outpatient (CLI) | payer BC, SELFPAY ==
--- NOTE | 2025-03-10 07:14 | NM_ITS ---
PROCEDURE: BONE SCAN WHOLE BODY 03/10/2025 REASON FOR EXAM: F/U METS PROSTATE CANCER TECHNIQUE: Procedure Code: NMBO Modality: NM Procedure: BONE SCAN WHOLE BODY Routine gamma camera imaging of the whole-body after radiopharmaceutical administration RADIOPHARMACEUTICAL: 27.0 mCi Technetium-99m MDP IV COMPARISON: Whole-body radionuclide bone scan dated 08/07 2020. FINDINGS: Increased osseous uptake is seen in the bilateral shoulders, bilateral sternoclavicular joints, lumbar spine, upper thoracic spine, and medial aspects of both knees, bilateral sacrum, and the proximal left femur. A small focal area of increased activity is also seen in the costal chondral junction of the left 4th rib. NM/Bone Scan Whole Body IMPRESSION: 1. Areas of increased osseous uptake in the bilateral shoulders and bilateral k nees most concerning for degenerative arthritis. 2. Focal areas of increased osseous uptake demonstrated in the supraclavicular regions, lumbar and upper thoracic spine, sacrum, and a new area in the left proximal femur are concerning for metastasis from th e patient's known prostate carcinoma. Reading Location: [place] [id number]
--- OUTSIDE RECORDS SUMMARY | 2025-03-10 07:18 | XMS RPT_ITS | CCD ---
Author Organization [facility] Care Team Providers Care Newspaper Writer Name Role Phone FRANCISCO J MYLES Unavailable Unavailable SAHARA ROSEN Unavailable Unavailable KIMSI Unavailable Unavailable Family Physician Unavailable Unavailable Ana vailable Family Physician Unavailable Unavailable Ana vailable KIMSI Unavailable Unavailable Family Physician Unavailable Unavailable Ana vailable Family Physician Unavailable Unavailable Ana vailable Jabari, Sahara O Unavailable Unavailable Rosen, Sahara O Unavailable Unavailable Isiah Harding Unavailable Unavailable ShaunbillIsiah Unavailable Unavailable Rosen, Sahara O Unavailable Unavailable NewbilIsiah oh Rufino Unavailable Unavailable Newbill, Isiah Rufino Unavailable Unavailable Rosen, Sahara O Unavailable Unavailable Rosen, Sahara O Unavailable Unavailable Rosen, Sahara O Unavailable Unavailable Rosen, Sahara O Unavailable Unavailable Rosen, Sahara O Unavailable Unavailable Rosen, Sahara O Unavailable Unavailable Rosen, Sahara O Unavailable Unavailable Rosen, Sahara O Unavailable Unavailable Rosen, Sahara O Unavailable Unavailable Klein, Kathryn C Unavailable Unavailable Rosen, Sahara O Unavailable Unavailable Klein, Kathryn C Unavailable Unavailable Klein, Kathryn C Unavailable Unavailable Rosen, Sahara O Unavailable Unavailable Klein, Kathryn C Unavailable Unavailable Rosen, Sahara O Unavailable Unavailable Klein, Kathryn C Unavailable Unavailable Rosen, Sahara O Unavailable Unavailable Klein, Kathryn C Unavailable Unavailable Klein, Kathryn C Unavailable Unavailable Rosen, Sahara O Unavailable Unavailable Ray Clifton Unavailable Unavailable Rosen, Ileana A Unavailable Unavailable Rosen, Ileana A Unavailable Unavailable Rosen, Sahara O Unavailable Unavailable Jimenez, Elliott W Unavailable Unavailable Rosen, Sahara O Unavailable Unavailable Jimenez, Elliott W Unavailable Unavailable Jimenez, Elliott W Unavailable Unavailable Rosen, Sahara O Unavailable Unavailable Jimenez, Elliott W Unavailable Unavailable Rosen, Sahara O Unavailable Unavailable Klein, Kathryn C Unavailable Unavailable Klein, Kathryn C Unavailable Unavailable Rosen, Sahara O Unavailable Unavailable Jimenez, Elliott W Unavailable Unavailable Jimenez, Elliott W Unavailable Unavailable Rosen, Ashara O Unavailable Unavailable Jimenez, Elliott W Unavailable Unavailable Rosen, Sahara O Unavailable Unavailable Thomae, Vickey R Unavailable Unavailable Thomae, Vickey R Unavailable Unavailable Rosen, Ashara O Unavailable Unavailable Thomae, Vickey R Unavailable Unavailable Thomae, Vickey R Unavailable Unavailable Jimenez, Elliott W Unavailable Unavailable Rosen, Sahara O Unavailable Unavailable Thomae, Vickey R Unavailable Unavailable Senia, Margarito P Unavailable Unavailable Senia, Margarito P Unavailable Unavailable Chin Rosenie O Unavailable Unavailable Senia, Margarito P Unavailable Unavailable Senia, Margarito P Unavailable Unavailable Rosen, Sahara O Unavailable Unavailable Jabari, Sahara O Unavailable Sahara Rosen Unavailable Juan Luis Aquino Unavailable Unavailable Isiah Harding Unavailable Unavailable Unavailable Glenn Norris Attending Unavailable Glenn Norris Referring Unavailable Newbilalthea, Mr. Isiah Rosenbaumel Primary Care Unavail able Newbill, Mr. Isiah Joy Primary Care Unavail able Newbill, Mr. Isiah Joy Referring Unavail able Glenn Norris Attending Unavailable Newbilalthea, Mr. Isiah Rosenbaumel Attending Unavail able Mehdi, Mr. Chavezn Rufino Referring Unavail able Jabari, Dr. Sahara León Primary Care Unavail able Care Physician, No Primary Primary Care Provider Unavailable Care Physician, No Primary Referring Provider Un available Dr. Luis Cooney Attending Provider Isiah Harding PA-C Primary Care Provider Isiah Harding PA-C Unavailable Pura Beckman (Hist) Primary Care Provider Sonia TELLO.SOIL CONSERVATIONIST, Alaina Unavailable Johnson Zavala MD Unavailable Shantanu PT, Raquel Unavailable Shantanu PT, Raquel Unavailable Mehdi, Mr. Isiah Joy Primary Care Unavail able Newbill, Mr. Isiah Joy Attending Unavail able Newbill, Mr. Isiah Joy Primary Care Unavail able Newbill, Mr. Isiah Joy Attending Unavail able CHRISTIANO NORRIS, NAUN SYKES Attending Un available Newbill, Mr. Isiah Joy Primary Care Unavail able Newbill, Mr. Isiah Joy Primary Care Unavail able Newbill, Mr. Isiah Joy Attending Unavail able Newbill, Mr. Isiah Joy Referring Unavail able Newbill, Mr. Isiah Joy Primary Care Unavail able Newbill, Mr. Isiah Joy Attending Unavail able Newbill, Mr. Isiah Joy Attending Unavail able Newbill, Mr. Isiah Joy Primary Care Unavail able Newbill, Mr. Isiah Joy Primary Care Unavail able Newbill, Mr. Isiah Joy Attending Unavail able Newbill, Mr. Isiah Joy Primary Care Unavail able Newbill, Mr. Isiah Joy Attending Unavail able Newbill, Mr. Isiah Joy Primary Care Unavail able Newbill, Mr. Isiah Joy Attending Unavail able Newbill, Mr. Isiah Joy Primary Care Unavail able Newbill, Mr. Isiah Joy Attending Unavail able Newbill, Mr. Isiah Joy Attending Unavail able Newbill, Mr. Isiah Joy Primary Care Unavail able Newbill, Mr. Isiah Joy Attending Unavail able Newbill, Mr. Isiah Joy Primary Care Unavail able Newbill, Mr. Isiah Joy Primary Care Unavail able Newbill, Mr. Isiah Joy Attending Unavail able Newbill, Mr. Isiah Joy Primary Care Unavail able Newbill, Mr. Isiah Joy Attending Unavail able CHRISTIANO NORRIS DNP KATIE REBECCA Attending Un available Newbill, Mr. Isiah Joy Primary Care Unavail able JOHNSON ZAVALA Admitting MILLIE Aguilar Attending Unavailable PURA BECKMAN ([facility]) Primary Care Unavail able JOHNSON ZAVALA Attending PURA Rodríguez ([facility]) Primary Care Unavail able JOHNSON ZAVALA Attending PURA Rodríguez ([facility]) Primary Care Unavail able JOHNSON ZAVALA Attending PURA Rodríguez ([facility]) Primary Care Unavail able PURA BECKMAN (HIST) Primary Care Unavail able [place], [place] Isiah Primary Care Provider [place], [place] Isiah Referring Provider Dr. Luis Cooney Attending Provider Dr. Luis Cooney Referring Provider Newbilalthea PA-C, Isiah M Unavailable Pura Beckman (Hist) Primary Care Provider Rosie VISUAL SPECIALIST-SOIL CONSERVATIONIST, Emy B Primary Care Provider Rosie VISUAL SPECIALIST-SOIL CONSERVATIONIST, Emy B Primary Care Provider Jin VISUAL SPECIALIST-SOIL CONSERVATIONIST, Mariposa Lanza Unavailable Unava ilable Rosie VISUAL SPECIALIST-SOIL CONSERVATIONIST, Emy B Unavailable Mehdi IGNACIO Isiah Primary Care Provider [place] IGNACIO Isiah Referring Provider Mena C D STILL OPERATOR-C, Sally Attending Provider Dr. Sahara Rosen MD Referring Provider Dr. Luis Cooney MD Attending Provider Care Physician, No Primary Primary Care Provider Unavailable Isiah Abraham Primary Care Provider [place] IGNACIO Isiah Referring Provider Mena C D STILL OPERATOR-C, Sally Attending Provider Dr. Luis Cooney MD Attending Provider Dr. Sahara Rosen MD Referring Provider Care Physician, No Primary Primary Care Provider Unavailable LEB, KAISER B Referring Unavailable ROSIE, EMY B Primary Care Unavailable LEB, KAISER B Referring Unavailable ROSIEEMY B Primary Care Unavailable LEB, KAISER B Referring Unavailable LEB, KAISER B Referring Unavailable [place] IGNACIO Isiah Primary Care Provider [place] IGNACIO Isiah Referring Provider Mena C D STILL OPERATOR-C, Sally Attending Provider Jabari MACDONALD, Dr. Sahara Stallworth Referring Provider Care Physician, No Primary Primary Care Provider Unavailable Newbill Isiah IGNACIO Primary Care Physician [place] PAIsiah Referring Provider Mena C D STILL OPERATOR-C, Sally Attending Physician Jabari MACDONALD, Dr. Sahara Stallworth Referring Provider Eros MACDONALD, Dr. Smith Attending Physician Care Physician, No Primary Primary Care Physicia n Unavailable KAISER LEAL Attending Unavailable ROSIE, EMY B Attending Unavailable ROSIE, EMY B Primary Care Unavailable KAISER LEAL B Attending Unavailable ROSIE, EMY B Primary Care Unavailable TORRIEBKAISER B Attending Unavailable ROSIE, EMY B Primary Care Unavailable Newbill, Isiah Primary Care Unavailable Mena C D STILL OPERATOR, Sally Attending Unavailable Mehdi, Isiah Referring Unavailable Luis Cooney Attending Unavailable Newbill, Isiah Referring Unavailable Newbill, Isiah Primary Care Unavailable Mena C D STILL OPERATOR, Sally Attending Unavailable Newbill, Isiah Referring Unavailable Newbill, Isiah Primary Care Unavailable Newbill, Isiah Referring Unavailable Mena C D STILL OPERATOR, Sally Attending Unavailable Newbill, Isiah Primary Care Unavailable Newbill, Isiah Referring Unavailable Mena C D STILL OPERATOR, Sally Attending Unavailable Newbill, Isiah Primary Care Unavailable Luis Cooney Attending Unavailable Newbill, Isiah Primary Care Unavailable Newbill, Isiah Referring Unavailable Mena C D STILL OPERATOR, Sally Attending Unavailable Newbill, Isiah Primary Care Unavailable Newbill, Isiah Referring Unavailable Newbill, Isiah Primary Care Unavailable Mena C D STILL OPERATOR, Sally Attending Unavailable Newbill, Isiah Referring Unavailable Newbill, Iisah Primary Care Unavailable Mena C D STILL OPERATOR, Sally Attending Unavailable Newbill, Isiah Referring Unavailable Luis Cooney Attending Unavailable Care Physician, No Primary Primary Care Unava ilable Sahara Rosen Referring Unavailable Anette Wolf Attending Unavailable Newbill, Isiah Primary Care Unavailable Rosie VISUAL SPECIALIST-SOIL CONSERVATIONIST, Emy B Unavailable KAISER LEAL Referring Unavailable ROSIE, EMY B Primary Care Unavailable LEDelta KAISER B Referring Unavailable NESS MCKINNON Referring Unavailable Medications Current Medications Medication Drug Class(es) Dates Sig (Normalized) Sig (Original) amoxicillin 875 mg / clavulanate 125 mg oral tablet (1 source) Penicillin-class Antibacterial Start: 02-23-2021 End: 03-01-2021 take 1 tablet by mouth twice daily at mealtime amoxicillin-clavula john 875 mg-125 mg oral tablet ; 1 tab(s) orally 2 times a day Quantity: 14 Refills: 0 Ordered: 23-Feb-2021 Juan Luis Aquino Start: 23-Feb-2021 End: 01-Mar-2021 Generic Substitution Allowed Comments: Finish all this medication unless otherwise directed by prescriber.Take with food or milk. Comment on above: Finish all this medi cation unless otherwise directed by prescriber.Take with food or milk. azithromycin 250 mg oral tablet (1 source) Macrolide Antimicrobial Start: 01-29-2021 take 2 tablets by mouth once, then take 1 tablet by mouth once daily azithromycin 250 mg oral tablet ; Take 2 tabs (500mg) x 1 days, then 1 tab (250mg) once daily x 4 days Quantity: 6 Refills: 0 Ordered: 29-Jan-2021 Juan Luis Aquino Start: 29-Jan-2021 Status: Other Generic Substitution Allowed Comments: Do not take dairy products, antacids, or iron preparations within one hour of this medication.Finish all this medication unless otherwise directed by prescriber. Comment on above: Do not take dairy pr oducts, antacids, or iron preparations within one hour of this medication.Finish all this medication unless otherwise directed by prescriber. calcium carbonate 1500 mg / cholecalciferol 200 unt oral tablet (20 sources) Vitamin D Start: 02-19-2018 Calcium Carbonate-Vitamin D3 (Calcium 600-Vit D3 200 Tablet) 1 EACH tablet Active 1 NMA PO DAILY February 19, 2018 1:00am Complies with drug therapy Casadex (1 source) take 1 tablet by mouth once daily Casadex ; 1 tab(s) orally once a day Quantity: 0 Refills: 0 Ordered: 06-Oct-2017 Kayla Back Status: Other Generic Substitution Allowed celecoxib 100 mg oral capsule (2 sources) Nonsteroidal Anti-inflammatory Drug Start: 07-04-2022 End: 07-04-2023 take 1 capsule by mouth in the morning celecoxib (CeleBREX) 100 mg capsule Indications: Polyarthritis , Chronic right-sided low back pain with right-sided sciatica TAKE 1 CAPSULE (100 MG) BY MOUTH IN THE MORNING AND 1 CAPSULE (100 MG) BEFORE BEDTIME. 60 capsule 3 07/04/2022 07/04/2023 Active diclofenac sodium 0.01 mg/mg topical gel (17 sources) Nonsteroidal Anti-inflammatory Drug Start: 12-01-2023 diclofenac sodium (Voltaren) 1 % gel Indications: Chronic pain of both knees Apply 4.5 inches (4 g) topically 4 times a day. 100 g 1 12/01/2023 3:30 PM EDT 12/01/2023 Active docusate sodium 100 mg oral capsule (2 sources) Start: 08-30-2022 End: 09-06-2022 take 1 capsule by mouth every twelve hours as needed docusate sodium (COLACE) 100 mg capsule Take 1 capsule by mouth twice daily as needed for constipation for up to 7 days. 14 capsule 0 08/30/2022 09/06/2022 Active Comment on above: Take 1 capsule by [facility] twice daily as needed for constipation for up to 7 days. 0.4 ml enoxaparin sodium 100 mg/ml prefilled syringe (3 sources) Low Molecular Weight Heparin Start: 08-31-2022 End: 09-20-2022 inject 40 mg by subcutaneous injection every twenty-four hours enoxaparin (LOVENOX) 40 mg/0.4 mL Inject 0.4 mL subcutaneously q 24 HR for 20 doses. 8 mL 0 08/31/2022 09/20/2022 Active Comment on above: Inject 0.4 mL subcut aneously q 24 HR for 20 doses. enzalutamide 80 mg oral tablet (20 sources) Androgen Receptor Inhibitor Start: 03-23-2023 take 2 tablets by mouth once daily in the morning enzalutamide (Xtandi) 80 mg tablet Take two (2) tablets (160mg total) by mouth once daily. 60 tablet 12 01/02/2025 9:03 AM EDT 04/08/2024 Active Start: 03-22-2023 End: 04-08-2024 take 1 tablet by mouth once daily FOLDING WALKER WITH 5 WHEELS (6 sources) Start: 08-31-2022 End: 08-23-2023 FOLDING WALKER WITH 5 WHEELS Indications: Fracture, proximal femur, left, closed, initial encounter ([facility]) 2 wheeled walker 1 Each 0 08/31/2022 08/23/2023 Active Comment on above: 2 wheeled walker 3 ml sodium hyaluronate 20 mg/ml prefilled syringe (2 sources) Start: 11-12-2024 End: 11-13-2024 sodium hyaluronate (Durolane) 60 mg/3 mL injection Indications: Primary osteoarthritis of both knees Inject 3 mL (60 mg) into the joint 1 time for 1 dose. INJECT INTRA ARTICULAR INTO left and right KNEE ONE TIME. This order is for bilateral injections 3 mL 11/12/2024 11/13/2024 Active 0.375 ml leuprolide acetate 60 mg/ml prefilled syringe (20 sources) Gonadotropin Releasing Hormone Receptor Agonist Start: 01-20-2025 inject 22.5 mg by subcutaneous injection every three months leuprolide, 3 month, 22.5 mg injection 22.5 mg subcutaneously every 3 months 1 each 4 01/20/2025 Active Start: 02-01-2023 End: 10-10-2024 leuprolide, 3 month, 22.5 mg injection Inject under the skin every 12 weeks. 1 kit 4 02/01/2023 Active Start: 02-01-2023 End: 10-10-2024 leuprolide, 3 month, 22.5 mg injection OFFICE TO INJECT 22.5MG INTRAMUSCULARLY ONCE EVERY 12 WEEKS DIRECTED. FOR [facility] ONLY 1 kit 4 11/16/2023 11:46 AM EDT 02/01/2023 Active Start: 12-13-2022 End: 03-06-2023 leuprolide, 3-month, (Lupron Depot) 22.5 mg injection OFFICE TO INJECT 22.5MG INTRAMUSCULARLY ONCE EVERY 12 WEEKS DIRECTED. FOR [facility] ONLY 22.5 mg 6 12/13/2022 03/06/2023 Discontinued (Duplicate order) Start: 03-17-2022 End: 03-06-2023 inject 11.25 mg by intramuscular injection every three months Lupron Depot (3-Month) 11.25 MG Intramuscular Kit injection done every 3 months for prostate cancer Quantity: 0 Refills: 0 Ordered: 17-Mar-2022 Isiah Hardign PA-C Start : 17-Mar-2022 Active leuprolide aceta te (LUPRON DEPOT INTRAMUSC.) Inject intramuscularly. Active leuprolide aceta te (LUPRON DEPOT INTRAMUSC.) Inject intramuscularly. 0 Active leuprolide aceta te (LUPRON DEPOT INTRAMUSC.) Inject intramuscularly. 0 Suspended Lupron Quantity: 0 Refills: 0 Ordered: 28-Jan-2021 PetesamiaSilverio clayharry Generic Substitution Allowed Comment on above: Inject intramuscular ly. losartan potassium 50 mg oral tablet (20 sources) Angiotensin 2 Receptor Gustavo Start: 03-19-2024 End: 04-02-2025 losartan (Cozaar) 50 mg tablet Indications: Primary hypertension TAKE 1 TABLET DAILY DIRECTED. 90 tablet 3 01/02/2025 3:31 PM EDT 03/19/2024 04/02/2025 Active Start: 05-23-2022 End: 03-05-2024 losartan (Cozaar) 50 mg tabl et Indications: Primary hypertension TAKE 1 TABLET DAILY DIRECTED. 90 tablet 3 03/06/2023 03/05/2024 Active Start: 04-26-2022 End: 03-06-2023 take 1 tablet by mouth once daily Losartan Potassium 25 MG Oral Tablet TAKE 1 TABLET Daily Quantity: 30 Refills: 0 Ordered: 26-Apr-2022 IAN Norris DNP, Katie Start : 26-Apr-2022 Active Start: 04-26-2022 take 2 tablets by mo [facility] once daily Losartan Potassium 25 MG Oral Tablet Take two tablets to equal 50mg daily Quantity: 60 Refills: 0 Ordered: 12-May-2022 IAN Norris DNP, Katie Start : 26-Apr-2022 Active Comment on above: Take 50 mg by mouth once daily. meloxicam 15 mg oral tablet (18 sources) Nonsteroidal Anti-inflammatory Drug Start: End: take 1 tablet by mouth once daily meloxicam (Mobic) 15 mg tablet Indications: Primary osteoarthritis of both knees Take 1 tablet (15 mg) by mouth once daily. 90 tablet 3 11/22/2024 10:59 AM EDT 05/14/2024 Active Start: 01-04-2024 take 1 tablet by sahara th once daily Meloxicam 7.5 mg tablet Active 7.5 mg PO daily January 04, 2024 12:00am Complies with drug therapy Start: 12-12-2023 End: 02-10-2024 take 1 tablet by mouth once daily meloxicam (Mobic) 15 mg tablet Indications: Primary osteoarthritis of both knees Take 1 tablet (15 mg) by mouth once daily. 30 tablet 1 12/12/2023 02/10/2024 Active naproxen 500 mg oral tablet (12 sources) Nonsteroidal Anti-inflammatory Drug Start: 06-01-2007 End: 02-29-2024 take 1 tablet by mouth twice daily as needed for pain naproxen (Naprosyn) 500 mg tablet Indications: Chronic pain of both knees Take 1 tablet (500 mg) by mouth 2 times a day as needed for mild pain (1 - 3) (pain). 60 tablet 12/01/2023 02/29/2024 Active Comment on above: Take one(1) tablet t wice daily as needed for pain, with food. ondansetron 4 mg oral tablet (8 sources) Serotonin-3 Receptor Antagonist Start: 08-30-2022 End: 09-04-2022 take 1 tablet by mouth every eight hours as needed ondansetron (ZOFRAN) 4 mg tablet Take 1 tablet by mouth every 8 hours as needed for nausea/vomiting for up to 5 days. 15 tablet 0 08/30/2022 09/04/2022 Active Start: 03-05-2018 End: 06-03-2018 take 1 tablet by mouth every eight hours as needed for nausea Ondansetron 4 MG tablet Discontinued 4 mg PO EVERY 8 HOURS NEEDED as needed for Nausea 30 30 2 March 05, 2018 1:00am June 02, 2018 12:00am June 03, 2018 12:09am Malignant neoplasm of prostate Malignant neoplasm of prostate Comment on above: Take 1 tablet by sahara every 8 hours as needed for nausea/vomiting for up to 5 days. oxyCODONE hydrochloride 5 mg oral tablet (2 sources) Opioid Agonist Start: 09-01-19 End: 09-08-19 take 1 tablet by mouth every six hours as needed for pain oxyCODONE IR (ROXICODONE) 5 mg immediate release tablet Indications: Fracture, proximal femur, left, closed, initial encounter ([facility]) Take 1 tablet by mouth every 6 hours as needed for pain for up to 7 days. 28 tablet 0 08/31/2022 09/07/2022 Active Comment on above: Take 1 tablet by sahara every 6 hours as needed for pain for up to 7 days. rOPINIRole 0.25 mg oral tablet (20 sources) Nonergot Dopamine Agonist Start: 03-29-19 End: 07-19-19 26 take 1 tablet by mouth three times daily rOPINIRole (Requip) 0.25 mg tablet Indications: Restless legs syndrome (RLS) Take 1 tablet (0.25 mg) by mouth 3 times a day. 270 tablet 3 01/21/2025 11:41 AM EST 07/18/2024 07/18/2025 Active Start: 03-17-2022 End: 03-05-2024 rOPINIRole (Requip) 0.25 mg tablet Indications: Restless legs syndrome (RLS) TAKE 1 TO 2 TABLETS EVERY DAY AT BEDTIME 180 tablet 3 03/06/2023 03/05/2024 Active take 0.5 mg by mouth twice daily ropinirole HCl (REQUIP ORAL) Take 0.5 mg by mouth twice daily. 0 Active Comment on above: Take 0.5 mg by mouth twice daily. rosuvastatin calcium 10 mg oral tablet (20 sources) HMG-CoA Reductase Inhibitor Start: take 1 tablet by mouth once daily at bedtime rosuvastatin (Crestor) 10 mg tablet Indications: Dyslipidemia Take 1 tablet (10 mg) by mouth once daily at bedtime. 90 tablet 3 01/02/2025 3:31 PM EDT 03/19/2024 Active Start: 03-28-2022 End: 03-06-2023 take 1 tablet by mouth once daily at bedtime rosuvastatin (Crestor) 10 mg tablet Indications: Dyslipidemia Take 1 tablet (10 mg) by mouth once daily at bedtime. 90 tablet 3 03/06/2023 Active Comment on above: Take 10 mg by mouth once daily. venlafaxine 37.5 mg oral tablet (20 sources) Serotonin and Norepinephrine Reuptake Inhibitor Start: 2020 End: 03-17-2022 Venlafaxine HCl - 37.5 MG Oral Tablet Quantity: 30 Refills: 0 Ordered: 08-Sep-2020 DO Start : 08-Sep-2020 End : 17-Mar-2022 Complete Start: 12-18-2018 End: 01-02-2025 take 1 tablet by mouth once daily venlafaxine (Effexor) 37.5 mg tablet Take 1 tablet (37.5 MG) orally daily 90 tablet 3 01/02/2025 Active Start: 09-17-2018 End: 12-17-2018 take 1 capsule by mouth once daily Venlafaxine 37.5 MG capsule Discontinued 37.5 mg PO DAILY 90 90 0 September 17, 2018 12:00am December 15, 2018 12:00am December 17, 2018 12:09am Hot flash in male On hormone replacement therapy Malignant neoplasm of prostate [place] Malignant neoplasm of prostate Hormone replacement therapy Start: 06-06-2018 End: 09-04-2018 take 1 capsule by mouth once daily Venlafaxine 37.5 MG capsule Discontinued 37.5 mg PO DAILY 30 30 2 June 06, 2018 8:55am September 03, 2018 12:00am September 04, 2018 12:07am Hot flash in male Malignant neoplasm of prostate [place] Malignant neoplasm of prostate Start: 03-06-2018 End: 06-04-2018 take 1 capsule by mouth once daily Venlafaxine 37.5 MG capsule Discontinued 37.5 mg PO DAILY 30 30 2 March 06, 2018 1:00am June 03, 2018 12:00am June 04, 2018 12:11am Hot flashes Malignant neoplasm of prostate Malignant neoplasm of prostate [place] Effexor Quantity : 0 Refills: 0 Ordered: 28-Jan-2021 Sara Macario Generic Substitution Allowed Comment on above: Take 37.5 mg by mout h once daily. Completed/Discontinued Medications Medication Drug Class(es) Dates Sig (Normalized) Sig (Original) abiraterone acetate 250 mg oral tablet (20 sources) Cytochrome P450 17A1 Inhibitor Start: 08-08-2022 End: 03-22-2023 take 1 tablet by mouth once daily 1 hour(s) after mealtime Abiraterone 250 mg Tablet Discontinued 1000 mg PO DAILY 120 30 6 August 08, 2022 3:05pm March 22, 2023 2:10pm Malignant neoplasm of prostate Malignant neoplasm of prostate must be taken on empty stomach, at least 1 hr before or 2 hrs after a meal/food Start: 08-08-2022 End: 08-08-2022 take 1000 mg by mouth once daily 1 hour(s) after mealtime Abiraterone Active 1000 MG PO DAILY 120 30 August 08, 2022 2:05pm must be taken on empty stomach, at least 1 hr before or 2 hrs after a meal/food Start: 05-06-2021 End: 08-08-2023 take 4 tablets by mouth once daily, then take 1 tablet by mouth once daily abiraterone 250 mg tablet Take 1,000 mg by mouth once daily. 250 mg x 4 tabs daily 05/06/2021 Active Start: 09-17-2020 End: 04-26-2023 take 1 tablet by mouth once daily 1 hour(s) after mealtime Abiraterone (Zytiga) 500 mg tablet Discontinued 1000 mg PO DAILY June 08, 2021 12:00am April 26, 2023 3:46pm must be taken on empty stomach, at least 1 hr before or 2 hrs after a meal/food Comment on above: Take 1,000 mg by sahara th once daily. 250 mg x 4 tabs daily [id number] 200 actuat albuterol 0.09 mg/actuat metered dose inhaler (1 source) beta2-Adrenergic Agonist Start: 1 take 2 puff(s) by inhalation twice daily as needed for cough albuterol 90 mcg/inh inhalation aerosol ; 2 puff(s) inhaled 2 times a day as needed for cough Quantity: 8.5 Refills: 0 Ordered: 23-Feb-2021 Juan Luis Aquino Start: 23-Feb-2021 Generic Substitution Allowed Comments: For inhalation only.It is very important that you take or use this exactly as directed. Do not skip doses or discontinue unless directed by your doctor.Obtain medical advice before taking any non-prescription drugs as some may affect the action of this medication.Shake well before use. Comment on above: For inhalation only. It is very important that you take or use this exactly as directed. Do not skip doses or discontinue unless directed by your doctor.Obtain medical advice before taking any non-prescription drugs as some may affect the action of this medication.Shake well before use. 1.7 ml denosumab 70 mg/ml injection (20 sources) RANK Ligand Inhibitor Start: 2 Xgeva 120 MG/1.7ML Subcutaneous Solution INFUSION DONE EVERY 3 MONTHS Quantity: 0 Refills: 0 Ordered: 17-Mar-2022 Isiah Harding PA-C Start : 17-Mar-2022 Active Lidocaine (2 sources) Antiarrhythmic, Amide Local Anesthetic Start: End: lidocaine (Xylocaine) 20 mg/mL (2 %) injection 2 mL Start: 01-27-2025 End: 01-27-2025 2 mL, injection, Once PRN Pr ocedure, Starting on Mon01/27/25 at 1056, For 1 dose Metoprolol (7 sources) beta-Adrenergic Gustavo Start: 05-10-2022 End: 03-28-2024 Lopressor Discontinued May 10, 2022 1:00am March 28, 2024 10:10am Start: 05-10-2022 Lopressor Acti ve May 10, 2022 12:00am Start: 05-10-2022 Lopressor Acti ve May 10, 2022 1:00am pantoprazole 20 mg delayed release oral tablet (19 sources) Proton Pump Inhibitor Start: 06-08-2021 End: 04-26-2023 take 1 tablet by mouth once daily Pantoprazole (Protonix) 20 mg tablet,delayed release (DR/EC) Discontinued 20 mg PO DAILY 30 August 27, 2021 10:42am April 26, 2023 3:12pm predniSONE 5 mg oral tablet (20 sources) Start: 02-23-2021 End: 02-27-2021 take 3 tablets by mouth once daily at mealtime predniSONE 10 mg oral tablet ; 3 tab(s) orally once a day x 5 days Quantity: 15 Refills: 0 Ordered: 23-Feb-2021 Juan Luis Aquino Start: 23-Feb-2021 End: 27-Feb-2021 Generic Substitution Allowed Comments: It is very important that you take or use this exactly as directed. Do not skip doses or discontinue unless directed by your doctor.Obtain medical advice before taking any non-prescription drugs as some may affect the action of this medication.Take with food or milk. Start: 02-23-2021 take 1 tablet by sahara th once daily predniSONE (DELTASONE) 5 mg tablet Take 5 mg by mouth once daily. 1 hour after abiraterone dose 02/23/2021 Active Start: 09-22-2020 End: 03-06-2023 take 1 tablet by mouth once daily predniSONE (Deltasone) 10 mg tablet Take 1 tablet (10 mg) by mouth once daily. 0 09/22/2020 03/06/2023 Discontinued (Therapy completed) Start: 09-22-2020 End: 03-17-2022 predniSONE 5 MG Oral Tablet Quantity: 60 Refills: 0 Ordered: 22-Sep-2020 DO Start : 22-Sep-2020 End : 17-Mar-2022 Complete Start: 08-20-2020 End: 07-18-2023 take 2 tablets by mouth once daily Prednisone 5 mg tablet Discontinued 10 mg PO DAILY 60 5 February 08, 2023 6:51pm April 26, 2023 3:12pm Malignant neoplasm of prostate Malignant neoplasm metastatic to bone Malignant neoplasm of prostate Secondary malignant neoplasm of bone Start: 08-20-2020 End: 02-08-2023 take 10 mg by mouth once daily Prednisone Active 10 MG PO DAILY 60 February 08, 2023 5:51pm Start: 07-23-2018 End: 08-06-2018 Prednisone 5 MG tablet Disco ntinued 5 mg PO DAILY 18 14 0 July 23, 2018 11:00am August 05, 2018 12:00am August 06, 2018 12:07am Malignant neoplasm of prostate Malignant neoplasm of prostate Alternate 10 mg daily with 5 mg daily x 1 week, alternate 5 mg daily with 0 daily x 1 week then stop Start: 06-06-2018 End: 08-05-2018 take 1 tablet by mouth once daily Prednisone 10 MG tablet Discontinued 10 mg PO DAILY 30 30 June 06, 2018 8:55am August 04, 2018 12:00am August 05, 2018 12:07am Malignant neoplasm of prostate Malignant neoplasm of prostate Start: 03-06-2018 End: 06-04-2018 take 1 tablet by mouth once daily Prednisone 10 MG tablet Discontinued 10 mg PO DAILY 30 30 2 March 06, 2018 1:00am June 03, 2018 12:00am June 04, 2018 12:11am Malignant neoplasm of prostate Malignant neoplasm of prostate predniSONE Quant ity: 0 Refills: 0 Ordered: 28-Jan-2021 Sara Macario Status: Other Generic Substitution Allowed Comment on above: It is very important that you take or use this exactly as directed. Do not skip doses or discontinue unless directed by your doctor.Obtain medical advice before taking any non-prescription drugs as some may affect the action of this medication.Take with food or milk. Take 5 mg by mouth o nce daily. 1 hour after abiraterone dose 20 ml ropivacaine hydrochloride 5 mg/ml injection (2 sources) Amide Local Anesthetic Start: 01-27-2025 End: 01-27-2025 ropivacaine (Naropin) 5 mg/mL (0.5 %) injection 4 mL Start: 01-27-2025 End: 01-27-2025 4 mL, Once PRN Procedure, St arting on Mon01/27/25 at 1056, For 1 dose 1 ml triamcinolone acetonide 40 mg/ml injection (20 sources) Corticosteroid Start: 01-27-2025 End: 01-27-2025 triamcinolone acetonide (Kenalog-40) injection 40 mg Start: 01-27-2025 End: 01-27-2025 40 mg, intra-articular, Once PRN Procedure, Starting on Mon01/27/25 at 1056, For 1 dose Start: 11-12-2024 End: 11-12-2024 triamcinolone acetonide (Flakito alog-40) injection 40 mg Start: 11-12-2024 End: 11-12-2024 40 mg, intra-articular, Once PRN Procedure, Starting on Mon11/12/24 at 0900, For 1 dose Start: 08-13-2024 End: 08-13-2024 triamcinolone acetonide (Flakito alog-40) injection 40 mg Start: 08-13-2024 End: 08-13-2024 40 mg, intra-articular, Once PRN Procedure, Starting on Mon08/13/24 at 0916, For 1 dose Start: 05-21-2024 End: 05-21-2024 triamcinolone acetonide (Flakito alog-40) injection 40 mg Start: 05-21-2024 End: 05-21-2024 40 mg, intra-articular, Once PRN Procedure, Starting on Mon05/21/24 at 1304, For 1 dose Start: 12-12-2023 End: 12-12-2023 triamcinolone acetonide (Flakito alog-40) injection 40 mg Start: 12-12-2023 End: 12-12-2023 40 mg, intra-articular, Once PRN Procedure, Starting on Mon12/12/23 at 1349, For 1 dose 5 ml zoledronic acid 0.8 mg/ml injection (15 sources) Bisphosphonate Start: 04-12-2021 End: 04-12-2021 Zoledronic Acid 4 mg/5 mL Solution Discontinued 4 mg IV ONE TIME 1 April 12, 2021 1:00am April 12, 2021 3:59pm Malignant neoplasm of prostate Malignant neoplasm metastatic to bone Malignant neoplasm of prostate Secondary malignant neoplasm of bone 4 mg by intravenous infusion every 12 weeks zoledronic acid (ZOMETA INTRAVENOUS) Inject intravenously. Active zoledronic acid (ZOMETA INTRAVENOUS) Inject intravenously. 0 Active zoledronic acid (ZOMETA INTRAVENOUS) Inject intravenously. 0 Suspended Zometa Quantity: 0 Refills: 0 Ordered: 28-Jan-2021 Sara Macario Generic Substitution Allowed Comment on above: Inject intravenously . Problems Active Problems Problem Classification Problem Date Documented Date Episodic/Chronic Administrative/socia l admission (14 sources) Education and/or schooling finding; Translations: [Problems related to education and literacy, unspecified] 11-24-2021 Episodic Aortic; peripheral; and visceral artery aneurysms (20 sources) Aneurysm of ascending aorta; Translations: [Thoracic aneurysm without mention of rupture] Onset: 05-03-2022 Resolved: 05-23-2022 07-04-2022 Chronic Cancer of prostate (20 sources) Malignant tumor of prostate; Translations: [Malignant neoplasm of prostate] Onset: 05-03-2022 11-24-2021 Chronic Cardiac dysrhythmias (20 sources) Paroxysmal supraventricular tachycardia; Translations: [Paroxysmal supraventricular tachycardia] Onset: 05-03-2022 05-03-2022 Chronic Diabetes mellitus without complication (1 source) Prediabetes; Translations: [Prediabetes] 03-06-2023 Episodic Disorders of lipid metabolism (20 sources) Dyslipidemia; Translations: [Other and unspecified hyperlipidemia] Onset: 05-03-2022 07-04-2022 Chronic Essential hypertension (20 sources) Hypertensive disorder; Translations: [Unspecified essential hypertension] Onset: 04-28-2022 07-04-2022 Chronic Fracture of lower limb (12 sources) Closed fracture of femur; Translations: [Aftercare for healing traumatic fracture of upper leg] Onset: 11-04-2022 Episodic Fracture of neck of femur (hip) (6 sources) Closed subtrochanteric fracture of left femur; Translations: [Displaced subtrochanteric fracture of left femur, initial encounter for closed fracture] Onset: 08-28-2022 08-28-2022 Episodic Immunizations and screening for infectious disease (20 sources) Patient encounter status; Translations: [Other specified vaccination] Onset: 01-02-2025 Episodic Malignant neoplasm without specification of site (6 sources) Malignant neoplastic disease; Translations: [Malignant (primary) neoplasm, unspecified] Onset: 08-29-2022 08-29-2022 Chronic Osteoarthritis (20 sources) Bilateral arthritis of knees; Translations: [Bilateral primary osteoarthritis of knee] Onset: 12-13-2023 12-12-2023 Chronic Other acquired deformities (1 source) Scoliosis, unspecified; Translations: [Scoliosis, unspecified] Onset: 07-08-2022 Chronic Other connective tissue disease (2 sources) Complete rotator cuff tear or rupture of left shoulder, not specified as traumatic; Translations: [Complete rotator cuff tear or rupture of left shoulder, not specified as traumatic] Onset: 01-27-2025 Episodic Other connective tissue disease (2 sources) Nontraumatic complete rupture of rotator cuff of left shoulder; Translations: [Complete rotator cuff tear or rupture of left shoulder, not specified as traumatic] 01-27-2025 Episodic Other hereditary and degenerative nervous system conditions (20 sources) Restless legs; Translations: [Restless legs syndrome (RLS)] Onset: 05-03-2022 07-04-2022 Chronic Other hereditary and degenerative nervous system conditions (2 sources) Restless legs syndrome; Translations: [Restless legs syndrome] Onset: 05-03-2022 Chronic Other injuries and conditions due to external causes (4 sources) Unspecified injury of left shoulder and upper arm, initial encounter; Translations: [Unspecified injury of left shoulder and upper arm, initial encounter] Onset: 01-27-2025 Episodic Other injuries and conditions due to external causes (2 sources) Injury of left shoulder; Translations: [Unspecified injury of left shoulder and upper arm, initial encounter] 01-27-2025 Episodic Other lower respiratory disease (2 sources) Cough 02-23-2021 Episodic Comment on above: COUGH Other lower respiratory disease (1 source) Rib pain; Translations: [Pleurodynia] 05-11-2021 Episodic Other nervous system disorders (1 source) Other chronic pain; Translations: [Other chronic pain] Onset: 07-08-2022 Chronic Other non-traumatic joint disorders (1 source) Polyarthropathy; Translations: [Polyarthritis, unspecified] 07-04-2022 Chronic Other non-traumatic joint disorders (11 sources) Hip pain; Translations: [Pain in joint, pelvic region and thigh] Episodic Other non-traumatic joint disorders (1 source) Pain in left hip; Translations: [Pain in left hip] Onset: 11-04-2022 Episodic Other non-traumatic joint disorders (3 sources) Rotator cuff arthropathy of left shoulder; Translations: [Unspecified rotator cuff tear or rupture of left shoulder, not specified as traumatic] 01-27-2025 Episodic Other skin disorders (1 source) Sebaceous cyst of skin; Translations: [Sebaceous cyst] 07-18-2023 Episodic Residual codes; unclassified (20 sources) Male hot flash; Translations: [Flushing] 11-24-2021 Episodic Residual codes; unclassified (16 sources) Flushing; Translations: [Flushing] Onset: 05-03-2022 03-29-2022 Episodic Secondary malignancies (20 sources) Secondary malignant neoplasm of bone; Translations: [Secondary malignant neoplasm of bone] 11-24-2021 Chronic Secondary malignancies (20 sources) Regional lymph node metastasis present ; Translations: [Secondary and unspecified malignant neoplasm of lymph node, unspecified] 11-24-2021 Chronic Secondary malignancies (15 sources) Secondary malignant neoplasm of bone; Translations: [Secondary malignant neoplasm of bone and bone marrow] Onset: 01-02-2025 03-29-2022 Chronic Secondary malignancies (15 sources) Secondary and unspecified malignant neoplasm of lymph node, unspecified; Translations: [Secondary and unspecified malignant neoplasm of lymph nodes, site unspecified] Onset: 01-02-2025 03-29-2022 Chronic Spondylosis; intervertebral disc disorders; other back problems (1 source) Spondylosis without myelopathy or radiculopathy, thoracic region; Translations: [Spondylosis w/o myelopathy or radiculopathy, thoracic region] Onset: 07-08-2022 Chronic Spondylosis; intervertebral disc disorders; other back problems (17 sources) Neck pain; Translations: [Cervicalgia] Onset: 07-08-2022 08-11-2020 Episodic Unclassified (1 source) Unknown / UNK(Unknown) Onset: 01-02-2018 Unclassified (1 source) Aneurysm of the ascending aorta, without rupture; Translations: [Aneurysm of the ascending aorta, without rupture] Onset: 05-09-2022 Unclassified (1 source) fall into silo 15ft, obvious deformity of left thigh Onset: 08-28-2022 Unclassified (2 sources) Injury of left shoulder 01-27-2025 Past or Other Problems Problem Classification Problem Date Documented Date Episodic/Chronic Nausea and vomiting (5 sources) Vomiting; Translations: [Vomiting, unspecified] Onset: 07-08-2022 07-04-2022 Episodic Nonspecific chest pain (20 sources) Chest pain; Translations: [Chest pain, unspecified] Onset: 03-18-2022 Resolved: 07-04-2022 07-04-2022 Episodic Open wounds of extremities (7 sources) Open wound of finger; Translations: [Unspecified open wound of unspecified finger without damage to nail, initial encounter] Onset: 11-06-2006 11-06-2006 Episodic Other circulatory disease (20 sources) Elevated blood pressure; Translations: [Elevated blood pressure reading without diagnosis of hypertension] Onset: 05-03-2022 Resolved: 07-04-2022 07-04-2022 Episodic Other circulatory disease (4 sources) Elevated blood-pressure reading, without diagnosis of hypertension; Translations: [Elevated blood-pressure reading, w/o diagnosis of htn] Onset: 03-18-2022 Episodic Other non-traumatic joint disorders (7 sources) Arthralgia of the ankle and/or foot; Translations: [Pain in unspecified ankle and joints of unspecified foot] Onset: 06-01-2007 06-01-2007 Episodic Other non-traumatic joint disorders (4 sources) Pain in right knee; Translations: [Pain in joint, lower leg] 12-01-2023 Episodic Other screening for suspected conditions (not mental disorders or infectious disease) (1 source) Encounter for screening for cardiovascular disorders; Translations: [Encounter for screening for cardiovascular disorders] Onset: 04-28-2022 Episodic Residual codes; unclassified (20 sources) Flushing; Translations: [Flushing] Onset: 05-03-2022 07-04-2022 Episodic Residual codes; unclassified (1 source) Pain, unspecified; Translations: [Pain, unspecified] Onset: 07-08-2022 Episodic Unclassified (1 source) [id number] RESTAGING Onset: 01-02-2018 Unclassified (20 sources) Onset: 07-04-2022 Resolved: 12-01-2023 07-04-2022 Unclassified (1 source) Aneurysm of the ascending aorta, without rupture; Translations: [Aneurysm of the ascending aorta, without rupture] Onset: 05-09-2022 Results Test Name Value Interpretation Reference Range Facility L Inj/Asp: L subacromial bur saon 01-27-2025 Ness Mckinnon MD 01/27/2025 10:57 AM L Inj/Asp: L subacromial bursa on 01/27/2025 10:56 AM Indications: pain Details: 22 G needle Medications: 40 mg triamcinolone acetonide 40 mg/mL; 4 mL ropivacaine 5 mg/mL (0.5 %); 2 mL lidocaine 20 mg/mL (2 %) Outcome: tolerated well, no immediate complications Procedure, treatment alternatives, risks and benefits explained, specific risks discussed. Consent was given by the patient. [facility] Work Phone: [facility] Work Phone: XR SHOULDER LEFT 2+ VIEWSon 01-27-2025 XR SHOULDER LEFT 2+ VIEWS Interpreted By: Art Erickson, STUDY: Left shoulder dated 01/27/2025. INDICATION: Signs/Symptoms:Left shoulder pain COMPARISON: None. ACCESSION NUMBER(S): [id number] ORDERING CLINICIAN: NESS MCKINNON TECHNIQUE: Four views of the left shoulder. FINDINGS: No fracture or dislocation is evident. There is moderate to severe glenohumeral and mild acromioclavicular joint degenerative change. Degenerative changes seen of the spine. No soft tissue gas or radiopaque foreign body is evident. IMPRESSION: Degenerative changes without osseous injury evident. MACRO: None Signed by: Art Erickson 01/27/2025 11:45 AM Dictation workstation: [id number] [facility] Comment on above: Order Comment: Grash ey, 15 degree cephalic tilt (Zanca), Axillary, Scapular Y XR Shoulder - left 2 Viewson 01-27-2025 Degenerative changes without osseous injury evident. MACRO: None Signed by: Art Erickson 01/27/2025 11:45 AM Dictation workstation: [id number] [facility] Interpreted By: Art Armijo, STUDY: Left shoulder dated 01/27/2025. INDICATION: Signs/Symptoms:Left shoulder pain COMPARISON: None. ACCESSION NUMBER(S): [id number] ORDERING CLINICIAN: NESS MCKINNON TECHNIQUE: Four views of the left shoulder. FINDINGS: No fracture or dislocation is evident. There is moderate to severe glenohumeral and mild acromioclavicular joint degenerative change. Degenerative changes seen of the spine. No soft tissue gas or radiopaque foreign body is evident. MMODAL Art Erickson M D - 01/27/2025 Interpreted By: Art Erickson, STUDY: Left shoulder dated 01/27/2025. INDICATION: Signs/Symptoms:Left shoulder pain COMPARISON: None. ACCESSION NUMBER(S): [id number] ORDERING CLINICIAN: NESS MCKINNON TECHNIQUE: Four views of the left shoulder. FINDINGS: No fracture or dislocation is evident. There is moderate to severe glenohumeral and mild acromioclavicular joint degenerative change. Degenerative changes seen of the spine. No soft tissue gas or radiopaque foreign body is evident. IMPRESSION: Degenerative changes without osseous injury evident. MACRO: None Signed by: Art Erickson 01/27/2025 11:45 AM Dictation workstation: [id number] [facility] Work Phone: Radiology Study observation (narrative) [facility] Work Phone: XR Shoulder - left 2 ViewsOr dered By: Art Erickson on 01-27-2025 [facility] Work Phone: Absolute lymphocyte countOrd ered By: Sally San on 01-02-2025 Lymphocytes Auto (Unsp spec) [#/Vol] 2.13 10*3/uL 0.83-4.51 [facility] Absolute neutrophil countOrd ered By: Sally San on 01-02-2025 Neutrophils (Bld) [#/Vol] 3.0 10*3/uL 2.0-7.7 [facility] Anion gap in Serum or Plasma Ordered By: Sally San on 01-02-2025 Anion gap [Moles/Vol] 11 mmol/L 08-01 [facility] Automated lymphocyte count a s percentage of total leukocytesOrdered By: Sally San on 01-02-2025 Lymphocytes/100 WBC Auto (Unsp spec) 35.0 % [facility] BUN/creatinine ratioOrdered By: Sally San on 01-02-2025 Urea nitrogen/Creatinine [Mass ratio] 29.8 mg/mg High 01-06 [facility] Basophil percentageOrdered B y: Sally San on 01-02-2025 Basophils/100 WBC (Bld) 0.7 % 0- [facility] Bilirubin, totalOrdered By: Sally San on 01-02-2025 Bilirubin [Mass/Vol] 0.39 mg/dL 0.00-1.30 [facility] CBC W/Diff, Automatedon 12-18 Absolute Lymph 2.13 X10 3/uL Normal 0.83-4.51 [facility] Comment on above: Performed By: #### L 500.4050, L501.9940, L100.0100 #### [facility] [address] [place], [address] Absolute Neut 3.0 X10 3/uL Normal 2.0-7.7 [facility] Comment on above: Performed By: #### L 500.4050, [id number], L100.0100 #### [facility] [address] [place], [address] Basophils/100 WBC (Bld) 0.7 % Normal 0-1 [facility] Comment on above: Performed By: #### L 500.4050, [id number], L100.0100 #### [facility] [address] [place], [address] Eosinophils/100 WBC (Bld) 4.6 % Normal 0-5 [facility] Comment on above: Performed By: #### L 500.4050, [id number], L100.0100 #### [facility] [address] [place], [address] Erythrocyte distribution width (RBC) [Ratio] 11.9 % Normal 11.6-14.6 [facility] Comment on above: Performed By: #### L 500.4050, L501.9940, L100.0100 #### [facility] [address] [place], [address] Hematocrit (Bld) [Volume fraction] 44.0 % Normal 40-54 [facility] Comment on above: Performed By: #### L 500.4050, L501.9940, L100.0100 #### [facility] [address] [place], [address] Hemoglobin (Bld) [Mass/Vol] 15.0 g/dL Normal 13.0-16.5 [facility] Comment on above: Performed By: #### L 500.4050, [id number], L100.0100 #### [facility] [address] [place], [address] IG% 0.500 Normal 0.0-0.9 [facility] Comment on above: Result Comment: IG% - Immature Granulocytes (promyelocytes, myelocytes and metamyelocytes) > 1% indicates that a LEFT SHIFT is Present. Performed By: #### L 500.4050, L501.9940, L100.0100 #### [facility] [address] [place], [address] Lymphocytes/100 WBC (Bld) 35.0 % Normal 19-41 [facility] Comment on above: Performed By: #### L 500.4050, [id number], L100.0100 #### [facility] [address] [place], [address] MCH (RBC) [Entitic mass] 31.3 pg Normal 27.0-32.0 [facility] Comment on above: Performed By: #### L 500.4050, L501.9940, L100.0100 #### [facility] [address] [place], [address] MCHC (RBC) [Mass/Vol] 34.1 g/dL Normal 32-36 [facility] Comment on above: Performed By: #### L 500.4050, [id number], L100.0100 #### [facility] [address] [place], [address] MCV (RBC) [Entitic vol] 91.9 fL Normal 80-94 [facility] Comment on above: Performed By: #### L 500.4050, [id number], L100.0100 #### [facility] [address] [place], [address] Monocytes/100 WBC (Bld) 10.4 % High 0-10 [facility] Comment on above: Performed By: #### L 500.4050, [id number], L100.0100 #### [facility] [address] [place], [address] Neutrophils/100 WBC (Bld) 48.8 % Normal 47-70 [facility] Comment on above: Performed By: #### L 500.4050, [id number], L100.0100 #### [facility] [address] [place], [address] Nucleated RBC (Bld) [#/Vol] 0 10*3/uL Normal 0-5 [facility] Comment on above: Performed By: #### L 500.4050, [id number], L100.0100 #### [facility] [address] [place], [address] Platelet mean volume (Bld) [Entitic vol] 9.2 fL Normal 6.2-12.0 [facility] Comment on above: Performed By: #### L 500.4050, L501.9940, L100.0100 #### [facility] [address] [place], [address] Platelets (Bld) [#/Vol] 254 10*3/uL Normal 150-450 [facility] Comment on above: Performed By: #### L 500.4050, [id number], L100.0100 #### [facility] [address] [place], [address] RBC (Bld) [#/Vol] 4.79 10*6/uL Normal 4.6-6.2 [facility] Comment on above: Performed By: #### L 500.4050, [id number], L100.0100 #### [facility] [address] [place], [address] RDW SD 39.8 fl Normal 35.1-43.9 [facility] Comment on above: Performed By: #### L 500.4050, [id number], L100.0100 #### [facility] [address] [place], [address] WBC (Bld) [#/Vol] 6.1 10*3/uL Normal 4.4-11.0 [facility] [place] Comment on above: Performed By: #### L 500.4050, [id number], L100.0100 #### [facility] [address] [place], [address] Carbon dioxide, total [Moles /volume] in Central venous bloodOrdered By: Sally San on 01-02-2025 CO2 [Moles/Vol] 26.7 mmol/L 21.0-32.0 [facility] Chloride assayOrdered By: Jermaine San on 01-02-2025 Chloride [Moles/Vol] 99 mmol/L 98-108 [facility] Comprehensive Metabolic Prof ilon 01-02-2025 Albumin [Mass/Vol] 4.3 g/dL Normal 3.4-4.8 [facility] Comment on above: Performed By: #### L 500.4050, [id number], L100.0100 #### [facility] [address] [place], [address] Albumin/Globulin [Mass ratio] 1.6 {ratio} Normal 0.9-2.4 [facility] Comment on above: Performed By: #### L 500.4050, [id number], L100.0100 #### [facility] [address] [place], [address] ALK PHOS 55 U/L Normal 40-129 [facility] Comment on above: Performed By: #### L 500.4050, [id number], L100.0100 #### [facility] [address] [place], [address] ALT [Catalytic activity/Vol] 14 U/L Normal <=46 [facility] Comment on above: Performed By: #### L 500.4050, L501.9940, L100.0100 #### [facility] [address] [place], [address] AST [Catalytic activity/Vol] 24 U/L Normal <=37 [facility] Comment on above: Performed By: #### L 500.4050, L501.9940, L100.0100 #### [facility] [address] [place], [address] Bilirubin [Mass/Vol] 0.39 mg/dL Normal 0.00-1.30 [facility] Comment on above: Performed By: #### L 500.4050, L501.9940, L100.0100 #### [facility] [address] [place], [address] BUN/CRE 29.8 RATIO High 10-20 [facility] Comment on above: Performed By: #### L 500.4050, L501.9940, L100.0100 #### [facility] [address] [place], [address] Calcium [Mass/Vol] 9.7 mg/dL Normal 7.6-11.0 [facility] Comment on above: Performed By: #### L 500.4050, L501.9940, L100.0100 #### [facility] [address] [place], [address] Chloride [Moles/Vol] 99 mmol/L Normal 98-108 [facility] Comment on above: Performed By: #### L 500.4050, L501.9940, L100.0100 #### [facility] [address] [place], [address] CO2 [Moles/Vol] 26.7 mmol/L Normal 21.0-32.0 [facility] Comment on above: Performed By: #### L 500.4050, L501.9940, L100.0100 #### [facility] [address] [place], [address] Creatinine [Mass/Vol] 0.80 mg/dL Normal 0.70-1.20 [facility] Comment on above: Performed By: #### L 500.4050, L501.9940, L100.0100 #### [facility] [address] [place], [address] ECRCL 109.89 ml/min Normal 50-250 [facility] Comment on above: Performed By: #### L 500.4050, L501.9940, L100.0100 #### [facility] [address] [place], [address] GAP 11 Normal 5-15 [facility] Comment on above: Performed By: #### L 500.4050, L501.9940, L100.0100 #### [facility] [address] [place], [address] GFR/1.73 sq M.predicted among non-blacks MDRD (S/P/Bld) [Vol rate/Area] 100 mL/min/{1.73_m2} Normal >60 [facility] Comment on above: Result Comment: mL/m in/1.73m2 CKD-EPI Creatinine Equation (2020) Performed By: #### L 500.4050, L501.9940, L100.0100 #### [facility] [address] [place], [address] Globulin (S) [Mass/Vol] 2.7 g/dL Normal 2.2-4.2 [facility] Comment on above: Performed By: #### L 500.4050, L501.9940, L100.0100 #### [facility] [address] [place], [address] Glucose [Mass/Vol] 116 mg/dL High 70-99 [facility] Comment on above: Performed By: #### L 500.4050, L501.9940, L100.0100 #### [facility] [address] [place], [address] Potassium [Moles/Vol] 4.1 mmol/L Normal 3.3-5.1 [facility] Comment on above: Performed By: #### L 500.4050, L501.9940, L100.0100 #### [facility] [address] [place], [address] Sodium [Moles/Vol] 137 mmol/L Normal 133-145 [facility] Comment on above: Performed By: #### L 500.4050, L501.9940, L100.0100 #### [facility] [address] [place], [address] T PROT 6.9 g/dL Normal 5.9-8.4 [facility] Comment on above: Performed By: #### L 500.4050, L501.9940, L100.0100 #### [facility] [address] [place], [address] Urea nitrogen [Mass/Vol] 24 mg/dL High 4-19 [facility] Comment on above: Performed By: #### L 500.4050, L501.9940, L100.0100 #### [facility] [address] [place], [address] Eosinophil percentageOrdered By: Sally San on 01-02-2025 Eosinophils/100 WBC (Bld) 4.6 % 0-5 [facility] Erythrocyte distribution wid th ratioOrdered By: Sally San on 01-02-2025 Erythrocyte distribution width (RBC) [Ratio] 11.9 % 11.6-14.6 [facility] Erythrocyte distribution wid th standard deviationOrdered By: Sally San on 01-02-2025 Erythrocyte distribution width (RBC) [Ratio] 39.8 fl 35.1-43.9 [facility] Glomerular filtration rate ( GFR) estimation/1.73 sq m using serum, plasma, or whole bOrdered By: Sally San on 01-02-2025 GFR/1.73 sq M.predicted among non-blacks MDRD (S/P/Bld) [Vol rate/Area] 100 mL/min/{1.73_m2} >60 [facility] Comment on above: mL/min/1.73m2 CKD-EP I Creatinine Equation (2020) Hematocrit Auto (Bld) [Volum e fraction]Ordered By: Sally San on 01-02-2025 Hematocrit (Bld) [Volume fraction] 44.0 % 40-54 [facility] Hemoglobin measurementOrdere d By: Sally San on 01-02-2025 Hemoglobin (Bld) [Mass/Vol] 15.0 g/dL 13.0-16.5 [facility] Immature granulocytes/100 WB C Auto (Bld)Ordered By: Sally San on 01-02-2025 Immature granulocytes/100 WBC (Bld) 0.500 % 0.0-0.9 [facility] Comment on above: IG% - Immature Granu locytes (promyelocytes, myelocytes and metamyelocytes) > 1% indicates that a LEFT SHIFT is Present. Laboratory - Chemistry and C hemistry - challengeOrdered By: Sally San on 01-02-2025 AST [Catalytic activity/Vol] 24 U/L <38 [facility] MCV (mean corpuscular volume ) determinationOrdered By: Sally San on 01-02-2025 MCV (RBC) [Entitic vol] 91.9 fL 80-94 [facility] Mean corpuscular hemoglobin (MCH) determinationOrdered By: Sally San on 01-02-2025 MCH (RBC) [Entitic mass] 31.3 pg 27.0-32.0 [facility] Mean corpuscular hemoglobin concentration (MCHC) determinationOrdered By: Sally San on 01-02-2025 MCHC (RBC) [Mass/Vol] 34.1 g/dL 32-36 [facility] Mean platelet volume determi nationOrdered By: Sally San on 01-02-2025 Platelet mean volume (Bld) [Entitic vol] 9.2 fL 6.2-12.0 [facility] Monocyte percentageOrdered B y: Sally San on 01-02-2025 Monocytes/100 WBC (Bld) 10.4 % High 0-10 [facility] Neutrophil percentageOrdered By: Sally San on 01-02-2025 Neutrophils/100 WBC (Bld) 48.8 % 47-70 [facility] Nucleated red blood cell per centageOrdered By: Sally San on 01-02-2025 Nucleated RBC/100 WBC (Bld) [Ratio] 0 % 0-5 [facility] Oncology Visit Reporton 12-[address] [place] [facility] [address] [place] [address] OFFICE VISIT Date of Service: 01/02/25 1438 MR#: [id number] Acct: [id number] Name: SAE KAPADIA Rep #: [id number] : 1960 From: Sally San NP C D STILL OPERATOR -C Age/Sex: 64/M Location: [facility] Status: Signed HPI Subjective Date of Service 01/02/25 Chief Complaint Prostate cancer on treatment History of Present Illness Patient is a 64-year-old gentleman, lopez, who noted a painless left groin mass in July 2017, thought to be a hernia for which September 13, 2017:???CT scan of the abdomen and pelvis??? revealed marked retroperitoneal, periaortic, and left iliac adenopathy with the largest lymph node mass measuring 5.6 cm in the lower periaortic/co mmon iliac chain, together with a CT scan of the chest on September 21 showed no visceral metastatic disease. September 21, 2017:???A CT-guided biopsy of retroperitoneal lymph nodes??? revealed metastatic adenocarcinoma PSA positive consistent with metastatic prostate cancer.?Cancer is microsatellite stable???( [facility] March 2020) October 2020 genetic testing at for a 47 gene panel showed no known pathogenic mutation, was a variant of uncertain significance. September 29, 2017:??? PSA >154. September 28, 2017:???A bone scan??? showed changes within the vertebral spine that were thought degenerative and inflammatory. He received a Lupron injection in September 2017 under the care of his urologist Dr. Jimenez, with Casodex cover in the first month then referred for a second opinion at where he was seen again by urologist Dr. Conn who informed him that his disease was non-operable, advised continued androgen deprivation therapy and consultation with medical oncology.??? He was also seen by radiation oncology at [facility] by Dr. Murray who advised medical management. December 26, 2017:???A follow-up??? bone scan??? showed interval progressive changes scattered throughout the axial and proximal appendicular skeleton in addition to several small new foci highly suspicious for progressive osseous metastatic disease. December 22, 2017:???PSA??? down to 20 and his testosterone level was consistent with a castrate level of 8. February 19, 2018:???Patient is transferring care to [facility] for proximity to his residence, PSA??? further down to 13. July 31, 2018: Bone scan: IMPRESSION: 1.??? The increased radiopharmaceutical concentration identified in the third thoracic vertebra may be further investigated with plain film radiography in the setting of known prostate carcinoma if not previously obtained. ??? 2.??? Degenerative arthritis remains apparent in the thoracic and lumbar spine, sacrum, left hip, bilateral shoulders elbows bilaterally, left wrist, right-left knees and right ankle articulation. ??? 3.??? Overall compared to the previous whole body bone scintigraphy study dated 12/26/2017, the persistent increase in tracer uptake noted in the third thoracic vertebra warrants further evaluation with plain film radiography is not previously obtained. Otherwise, there is no significant interval change compared to the prior examination. February 2019 bone scan: IMPRESSION: 1.??? The increase in radiopharmaceutical concentration identified in the cervical thoracic and lumbar spine, both shoulders, sacrum, wrist and elbow articulations bilaterally, right and left hips, both knees is commensurate with degenerative arthritis. ???2.??? Overall compared to the previous whole body bone scintigraphy study dated 07/31/2018, there is no significant interval change.??? There is no present typical scintigraphic evidence of diffuse axial skeletal metastatic disease. October 17, 2019 bone scan: IMPRESSION: 1. The increase in radiopharmaceutical distribution currently defined in the cervical, thoracic and lumbar spine, sacrum, bilateral shoulders, left elbow, right-left knees, the right ankle and left wrist are commensurate with degenerative arthritis. 2.??? Overall compared to the previous whole body bone scintigraphy study dated 03/19/2019, there is no significant interval change.??? No current typical scintigraphic evidence of diffuse axial skeletal metastatic disease is demonstrated on the present examination. March 18, 2020 bone scan: IMPRESSION: 1.??? The increase in tracer distribution defined in the cervical, thoracic and lumbar spine, sacrum, right and left shoulders, knees bilaterally, both wrist articulations is commensurate with degenerative arthritis. 2.??? Overall compared to the previous whole body bone scintigraphy study dated 10/17/2019, there is no significant interval change.??? No current typical scintigraphic evidence of skeletal metastatic disease is demonstrated on the current examination. April 20, 2020 CT abdomen and pelvis: (more content not included)... Normal [facility] PSA,Total- Diagnosticon 12-18 PSA, DIAGNOSTIC < 0.02 Normal 0.00-4.00 [facility] Comment on above: Result Comment: This test was performed using the [employer] tPSA method. Measured values of a patient??sample can vary depending on the testing procedure used. PSA values determined on patient samples by different testing procedures cannot be used interchangeably. If there is a change in PSA assays while monitoring therapy, sequential testing should be performed to confirm baseline values. Performed By: #### L 500.4050, L501.9940, L100.0100 #### [facility] [address] [place], [address] Platelet countOrdered By: Jermaine San on 01-02-2025 Platelets (Bld) [#/Vol] 254 10*3/uL 150-450 [facility] Potassium measurement (mass/ volume)Ordered By: Sally San on 01-02-2025 Potassium (Unsp spec) [Mass/Vol] 4.1 mmol/L 3.3-5.1 [facility] RBC Auto (Bld) [#/Vol]Ordere d By: Sally San on 01-02-2025 RBC (Bld) [#/Vol] 4.79 10*6/uL 4.6-6.2 [facility] Serum creatinine measurement (mass/volume)Ordered By: Sally San on 01-02-2025 Creatinine [Mass/Vol] 0.80 mg/dL 0.70-1.20 [facility] Serum globulin measurementOr dered By: Sally San on 01-02-2025 Globulin (S) [Mass/Vol] 2.7 g/dL 2.2-4.2 [facility] Serum glucose measurement (m ass/volume)Ordered By: Sally San on 10-16-2025 Glucose [Mass/Vol] 116 mg/dL High 70-99 [facility] Serum or plasma alanine sutton otransferase (ALT) measurementOrdered By: Sally San on 01-02-2025 ALT [Catalytic activity/Vol] 14 U/L <47 [facility] Serum or plasma albumin pati urement (mass/volume)Ordered By: Sally San on 01-02-2025 Albumin [Mass/Vol] 4.3 g/dL 3.4-4.8 [facility] Serum or plasma albumin/glob ulin mass ratioOrdered By: Sally San on 01-02-2025 Albumin/Globulin [Mass ratio] 1.6 {ratio} 0.9-2.4 [facility] Serum or plasma alkaline shayna sphatase measurementOrdered By: Sally San on 01-02-2025 ALP [Catalytic activity/Vol] 55 U/L 40-129 [facility] Serum or plasma calcium pati urement (mass/volume)Ordered By: Sally San on 01-02-2025 Calcium [Mass/Vol] 9.7 mg/dL 7.6-11.0 [facility] Serum or plasma urea nitroge n measurement (mass/volume)Ordered By: Sally San on 01-02-2025 Urea nitrogen [Mass/Vol] 24 mg/dL High 4-19 [facility] Sodium levelOrdered By: Sally San on 01-02-2025 Sodium [Moles/Vol] 137 mmol/L 133-145 [facility] Total proteinOrdered By: Chris San on 01-02-2025 Protein [Mass/Vol] 6.9 g/dL 5.9-8.4 [facility] White blood cell (WBC) count Ordered By: Sally San on 01-02-2025 WBC (Bld) [#/Vol] 6.1 10*3/uL 4.4-11.0 [facility] Absolute lymphocyte countOrd ered By: Sally San on 11-21-2024 Lymphocytes Auto (Unsp spec) [#/Vol] 2.01 10*3/uL 0.83-4.51 [facility] Absolute neutrophil countOrd ered By: Sally San on 11-21-2024 Neutrophils (Bld) [#/Vol] 2.4 10*3/uL 2.0-7.7 [facility] Anion gap in Serum or Plasma Ordered By: Sally MaharajMena on 11-21-2024 Anion gap [Moles/Vol] 10 mmol/L 5- [facility] Automated lymphocyte count a s percentage of total leukocytesOrdered By: Sally MaharajMena on 11-21-2024 Lymphocytes/100 WBC Auto (Unsp spec) 37.6 % - [facility] BUN/creatinine ratioOrdered By: Sallymagdiel MaharajMena on 11-21-2024 Urea nitrogen/Creatinine [Mass ratio] 25.6 mg/mg High 10- [facility] Basophil percentageOrdered B y: Sallymagdiel MaharajMena on 11-21-2024 Basophils/100 WBC (Bld) 0.6 % 0-1 [facility] Bilirubin, totalOrdered By: Sally San on 11-21-2024 Bilirubin [Mass/Vol] 0.33 mg/dL 0.00-1.30 [facility] CBC W/Diff, Automatedon Absolute Lymph 2.01 X10 3/uL Normal 0.83-4.51 [facility] Comment on above: Performed By: #### L 500.4050, L501.9940, L100.0100 #### [facility] [address] [place], [address] Absolute Neut 2.4 X10 3/uL Normal 2.0-7.7 [facility] Comment on above: Performed By: #### L 500.4050, L501.9940, L100.0100 #### [facility] [address] [place], [address] Basophils/100 WBC (Bld) 0.6 % Normal 0-1 [facility] Comment on above: Performed By: #### L 500.4050, L501.9940, L100.0100 #### [facility] [address] [place], [address] Eosinophils/100 WBC (Bld) 5.2 % High 0-5 [facility] Comment on above: Performed By: #### L 500.4050, L501.9940, L100.0100 #### [facility] [address] [place], [address] Erythrocyte distribution width (RBC) [Ratio] 11.8 % Normal 11.6-14.6 [facility] Comment on above: Performed By: #### L 500.4050, L501.9940, L100.0100 #### [facility] [address] [place], [address] Hematocrit (Bld) [Volume fraction] 38.5 % Low 40-54 [facility] Comment on above: Performed By: #### L 500.4050, L501.9940, L100.0100 #### [facility] [address] [place], [address] Hemoglobin (Bld) [Mass/Vol] 13.6 g/dL Normal 13.0-16.5 [facility] Comment on above: Performed By: #### L 500.4050, L501.9940, L100.0100 #### [facility] [address] [place], [address] IG% 0.900 Normal 0.0-0.9 [facility] Comment on above: Result Comment: IG% - Immature Granulocytes (promyelocytes, myelocytes and metamyelocytes) > 1% indicates that a LEFT SHIFT is Present. Performed By: #### L 500.4050, L501.9940, L100.0100 #### [facility] [address] [place], [address] Lymphocytes/100 WBC (Bld) 37.6 % Normal 19-41 [facility] Comment on above: Performed By: #### L 500.4050, L501.9940, L100.0100 #### [facility] [address] [place], [address] MCH (RBC) [Entitic mass] 31.9 pg Normal 27.0-32.0 [facility] Comment on above: Performed By: #### L 500.4050, L501.9940, L100.0100 #### [facility] [address] [place], [address] MCHC (RBC) [Mass/Vol] 35.3 g/dL Normal 32-36 [facility] Comment on above: Performed By: #### L 500.4050, L501.9940, L100.0100 #### [facility] [address] [place], [address] MCV (RBC) [Entitic vol] 90.4 fL Normal 80-94 [facility] Comment on above: Performed By: #### L 500.4050, L501.9940, L100.0100 #### [facility] [address] [place], [address] Monocytes/100 WBC (Bld) 11.2 % High 0-10 [facility] Comment on above: Performed By: #### L 500.4050, L501.9940, L100.0100 #### [facility] [address] [place], [address] Neutrophils/100 WBC (Bld) 44.5 % Low 47-70 [facility] Comment on above: Performed By: #### L 500.4050, L501.9940, L100.0100 #### [facility] [address] [place], [address] Nucleated RBC (Bld) [#/Vol] 0 10*3/uL Normal 0-5 [facility] Comment on above: Performed By: #### L 500.4050, L501.9940, L100.0100 #### [facility] [address] [place], [address] Platelet mean volume (Bld) [Entitic vol] 9.1 fL Normal 6.2-12.0 [facility] Comment on above: Performed By: #### L 500.4050, L501.9940, L100.0100 #### [facility] [address] [place], [address] Platelets (Bld) [#/Vol] 224 10*3/uL Normal 150-450 [facility] Comment on above: Performed By: #### L 500.4050, L501.9940, L100.0100 #### [facility] [address] [place], [address] RBC (Bld) [#/Vol] 4.26 10*6/uL Low 4.6-6.2 [facility] Comment on above: Performed By: #### L 500.4050, L501.9940, L100.0100 #### [facility] [address] [place], [address] RDW SD 38.6 fl Normal 35.1-43.9 [facility] Comment on above: Performed By: #### L 500.4050, L501.9940, L100.0100 #### [facility] [address] [place], [address] WBC (Bld) [#/Vol] 5.4 10*3/uL Normal 4.4-11.0 [facility] Comment on above: Performed By: #### L 500.4050, L501.9940, L100.0100 #### [facility] [address] [place], [address] Carbon dioxide, total [Moles /volume] in Central venous bloodOrdered By: Sally San on 11-21-2024 CO2 [Moles/Vol] 23.0 mmol/L 21.0-32.0 [facility] Chloride assayOrdered By: Ty ra San on 11-21-2024 Chloride [Moles/Vol] 104 mmol/L 98-108 [facility] Comprehensive Metabolic Prof ilon 11-21-2024 Albumin [Mass/Vol] 3.9 g/dL Normal 3.4-4.8 [facility] Comment on above: Performed By: #### L 500.4050, L501.9940, L100.0100 #### [facility] [address] [place], [address] Albumin/Globulin [Mass ratio] 1.7 {ratio} Normal 0.9-2.4 [facility] Comment on above: Performed By: #### L 500.4050, L501.9940, L100.0100 #### [facility] [address] [place], [address] ALK PHOS 50 U/L Normal 40-129 [facility] Comment on above: Performed By: #### L 500.4050, L501.9940, L100.0100 #### [facility] [address] [place], [address] ALT [Catalytic activity/Vol] 16 U/L Normal <=46 [facility] Comment on above: Performed By: #### L 500.4050, L501.9940, L100.0100 #### [facility] [address] [place], [address] AST [Catalytic activity/Vol] 21 U/L Normal <=37 [facility] Comment on above: Performed By: #### L 500.4050, L501.9940, L100.0100 #### [facility] [address] [place], [address] Bilirubin [Mass/Vol] 0.33 mg/dL Normal 0.00-1.30 [facility] Comment on above: Performed By: #### L 500.4050, L501.9940, L100.0100 #### [facility] [address] [place], [address] BUN/CRE 25.6 RATIO High 10-20 [facility] Comment on above: Performed By: #### L 500.4050, L501.9940, L100.0100 #### [facility] [address] [place], [address] Calcium [Mass/Vol] 9.1 mg/dL Normal 7.6-11.0 [facility] Comment on above: Performed By: #### L 500.4050, L501.9940, L100.0100 #### [facility] [address] [place], [address] Chloride [Moles/Vol] 104 mmol/L Normal 98-108 [facility] Comment on above: Performed By: #### L 500.4050, L501.9940, L100.0100 #### [facility] [address] [place], [address] CO2 [Moles/Vol] 23.0 mmol/L Normal 21.0-32.0 [facility] Comment on above: Performed By: #### L 500.4050, L501.9940, L100.0100 #### [facility] [address] [place], [address] Creatinine [Mass/Vol] 0.89 mg/dL Normal 0.70-1.20 [facility] Comment on above: Performed By: #### L 500.4050, L501.9940, L100.0100 #### [facility] [address] [place], [address] ECRCL 98.77 ml/min Normal 50-250 [facility] Comment on above: Performed By: #### L 500.4050, L501.9940, L100.0100 #### [facility] [address] [place], [address] GAP 10 Normal 5-15 [facility] Comment on above: Performed By: #### L 500.4050, L501.9940, L100.0100 #### [facility] [address] [place], [address] GFR/1.73 sq M.predicted among non-blacks MDRD (S/P/Bld) [Vol rate/Area] 96 mL/min/{1.73_m2} Normal >60 [facility] Comment on above: Result Comment: mL/m in/1.73m2 CKD-EPI Creatinine Equation (2020) Performed By: #### L 500.4050, L501.9940, L100.0100 #### [facility] [address] [place], [address] Globulin (S) [Mass/Vol] 2.3 g/dL Normal 2.2-4.2 [facility] Comment on above: Performed By: #### L 500.4050, L501.9940, L100.0100 #### [facility] [address] [place], [address] Glucose [Mass/Vol] 130 mg/dL High 70-99 [facility] Comment on above: Performed By: #### L 500.4050, L501.9940, L100.0100 #### [facility] [address] [place], [address] Potassium [Moles/Vol] 4.1 mmol/L Normal 3.3-5.1 [facility] Comment on above: Performed By: #### L 500.4050, L501.9940, L100.0100 #### [facility] [address] [place], [address] Sodium [Moles/Vol] 137 mmol/L Normal 133-145 [facility] Comment on above: Performed By: #### L 500.4050, L501.9940, L100.0100 #### [facility] [address] [place], [address] T PROT 6.2 g/dL Normal 5.9-8.4 [facility] Comment on above: Performed By: #### L 500.4050, L501.9940, L100.0100 #### [facility] [address] [place], [address] Urea nitrogen [Mass/Vol] 23 mg/dL High 4-19 [facility] Comment on above: Performed By: #### L 500.4050, L501.9940, L100.0100 #### [facility] [address] [place], [address] Eosinophil percentageOrdered By: Sally San on 11-21-2024 Eosinophils/100 WBC (Bld) 5.2 % High 0-5 [facility] Erythrocyte distribution wid th ratioOrdered By: Sally San on 11-21-2024 Erythrocyte distribution width (RBC) [Ratio] 11.8 % 11.6-14.6 [facility] Erythrocyte distribution wid th standard deviationOrdered By: Sally San on 11-21-2024 Erythrocyte distribution width (RBC) [Ratio] 38.6 fl 35.1-43.9 [facility] Glomerular filtration rate ( GFR) estimation/1.73 sq m using serum, plasma, or whole bOrdered By: Sally San on 11-21-2024 GFR/1.73 sq M.predicted among non-blacks MDRD (S/P/Bld) [Vol rate/Area] 96 mL/min/{1.73_m2} >60 [facility] Comment on above: mL/min/1.73m2 CKD-EP I Creatinine Equation (2020) Hematocrit Auto (Bld) [Volum e fraction]Ordered By: Sally San on 11-21-2024 Hematocrit (Bld) [Volume fraction] 38.5 % Low 40-54 [facility] Hemoglobin measurementOrdere d By: Sally San on 11-21-2024 Hemoglobin (Bld) [Mass/Vol] 13.6 g/dL 13.0-16.5 [facility] Immature granulocytes/100 WB C Auto (Bld)Ordered By: Sally San on 11-21-2024 Immature granulocytes/100 WBC (Bld) 0.900 % 0.0-0.9 [facility] Comment on above: IG% - Immature Granu locytes (promyelocytes, myelocytes and metamyelocytes) > 1% indicates that a LEFT SHIFT is Present. Laboratory - Chemistry and C hemistry - challengeOrdered By: Sally San on 11-21-2024 AST [Catalytic activity/Vol] 21 U/L <38 [facility] MCV (mean corpuscular volume ) determinationOrdered By: Sally San on 11-21-2024 MCV (RBC) [Entitic vol] 90.4 fL 80-94 [facility] Mean corpuscular hemoglobin (MCH) determinationOrdered By: Sally San on 11-21-2024 MCH (RBC) [Entitic mass] 31.9 pg 27.0-32.0 [facility] Mean corpuscular hemoglobin concentration (MCHC) determinationOrdered By: Sally San on 11-21-2024 MCHC (RBC) [Mass/Vol] 35.3 g/dL 32-36 [facility] Mean platelet volume determi nationOrdered By: Sally San on 11-21-2024 Platelet mean volume (Bld) [Entitic vol] 9.1 fL 6.2-12.0 [facility] Monocyte percentageOrdered B y: Sally San on 11-21-2024 Monocytes/100 WBC (Bld) 11.2 % High 0-10 [facility] Neutrophil percentageOrdered By: Sally San on 11-21-2024 Neutrophils/100 WBC (Bld) 44.5 % Low 47-70 [facility] Nucleated red blood cell per centageOrdered By: Sally San on 11-21-2024 Nucleated RBC/100 WBC (Bld) [Ratio] 0 % 0-5 [facility] Oncology Visit Reporton Oncology Visit Report [facility] [place] [address] OFFICE VISIT Date of Service: 11/21/24 1312 MR#: [id number] Acct: [id number] Name: SAE KAPADIA Rep #: [id number] : 1960 From: Sally San NP C D STILL OPERATOR -C Age/Sex: 64/M Location: [facility] Status: Signed HPI Subjective Date of Service 11/21/24 Chief Complaint Prostate cancer on treatment History of Present Illness Patient is a 64-year-old gentleman, lopez, who noted a painless left groin mass in July 2017, thought to be a hernia for which September 13, 2017:???CT scan of the abdomen and pelvis??? revealed marked retroperitoneal, periaortic, and left iliac adenopathy with the largest lymph node mass measuring 5.6 cm in the lower periaortic/co mmon iliac chain, together with a CT scan of the chest on September 21 showed no visceral metastatic disease. September 21, 2017:???A CT-guided biopsy of retroperitoneal lymph nodes??? revealed metastatic adenocarcinoma PSA positive consistent with metastatic prostate cancer.?Cancer is microsatellite stable???( [facility] March 2020) October 2020 genetic testing at for a 47 gene panel showed no known pathogenic mutation, was a variant of uncertain significance. September 29, 2017:??? PSA >154. September 28, 2017:???A bone scan??? showed changes within the vertebral spine that were thought degenerative and inflammatory. He received a Lupron injection in September 2017 under the care of his urologist Dr. Jimenez, with Casodex cover in the first month then referred for a second opinion at where he was seen again by urologist Dr. Conn who informed him that his disease was non-operable, advised continued androgen deprivation therapy and consultation with medical oncology.??? He was also seen by radiation oncology at [facility] by Dr. Murray who advised medical management. December 26, 2017:???A follow-up??? bone scan??? showed interval progressive changes scattered throughout the axial and proximal appendicular skeleton in addition to several small new foci highly suspicious for progressive osseous metastatic disease. December 22, 2017:???PSA??? down to 20 and his testosterone level was consistent with a castrate level of 8. February 19, 2018:???Patient is transferring care to [facility] for proximity to his residence, PSA??? further down to 13July 31, 2018: Bone scan: IMPRESSION: 1.??? The increased radiopharmaceutical concentration identified in the third thoracic vertebra may be further investigated with plain film radiography in the setting of known prostate carcinoma if not previously obtained. ??? 2.??? Degenerative arthritis remains apparent in the thoracic and lumbar spine, sacrum, left hip, bilateral shoulders elbows bilaterally, left wrist, right-left knees and right ankle articulation. ??? 3.??? Overall compared to the previous whole body bone scintigraphy study dated 12/26/2017, the persistent increase in tracer uptake noted in the third thoracic vertebra warrants further evaluation with plain film radiography is not previously obtained. Otherwise, there is no significant interval change compared to the prior examination. February 2019 bone scan: IMPRESSION: 1.??? The increase in radiopharmaceutical concentration identified in the cervical thoracic and lumbar spine, both shoulders, sacrum, wrist and elbow articulations bilaterally, right and left hips, both knees is commensurate with degenerative arthritis. ???2.??? Overall compared to the previous whole body bone scintigraphy study dated 07/31/2018, there is no significant interval change.??? There is no present typical scintigraphic evidence of diffuse axial skeletal metastatic disease. October 17, 2019 bone scan: IMPRESSION: 1. The increase in radiopharmaceutical distribution currently defined in the cervical, thoracic and lumbar spine, sacrum, bilateral shoulders, left elbow, right-left knees, the right ankle and left wrist are commensurate with degenerative arthritis. 2.??? Overall compared to the previous whole body bone scintigraphy study dated 03/19/2019, there is no significant interval change.??? No current typical scintigraphic evidence of diffuse axial skeletal metastatic disease is demonstrated on the present examination. March 18, 2020 bone scan: IMPRESSION: 1.??? The increase in tracer distribution defined in the cervical, thoracic and lumbar spine, sacrum, right and left shoulders, knees bilaterally, both wrist articulations is commensurate with degenerative arthritis. 2.??? Overall compared to the previous whole body bone scintigraphy study dated 10/17/2019, there is no significant interval change.??? No current typical scintigraphic evidence of skeletal metastatic disease is demonstrated on the current examination. April 20, 2020 CT abdomen and pelvis: (more content not included)... Normal [facility] PSA,Total- Diagnosticon 09-0 PSA, DIAGNOSTIC < 0.02 Normal 0.00-4.00 [facility] Comment on above: Result Comment: This test was performed using the [employer] tPSA method. Measured values of a patient??sample can vary depending on the testing procedure used. PSA values determined on patient samples by different testing procedures cannot be used interchangeably. If there is a change in PSA assays while monitoring therapy, sequential testing should be performed to confirm baseline values. Performed By: #### L 500.4050, L501.9940, L100.0100 #### [facility] [address] [place], [address] Platelet countOrdered By: Jermaine San on 11-21-2024 Platelets (Bld) [#/Vol] 224 10*3/uL 150-450 [facility] Potassium measurement (mass/ volume)Ordered By: Sally San on 11-21-2024 Potassium (Unsp spec) [Mass/Vol] 4.1 mmol/L 3.3-5.1 [facility] RBC Auto (Bld) [#/Vol]Ordere d By: Sally San on 11-21-2024 RBC (Bld) [#/Vol] 4.26 10*6/uL Low 4.6-6.2 [facility] Serum creatinine measurement (mass/volume)Ordered By: Sally San on 11-21-2024 Creatinine [Mass/Vol] 0.89 mg/dL 0.70-1.20 [facility] Serum globulin measurementOr dered By: Sally San on 11-21-2024 Globulin (S) [Mass/Vol] 2.3 g/dL 2.2-4.2 [facility] Serum glucose measurement (m ass/volume)Ordered By: Sally San on 11-21-2024 Glucose [Mass/Vol] 130 mg/dL High 70-99 [facility] Serum or plasma alanine stuton otransferase (ALT) measurementOrdered By: Sally San on 11-21-2024 ALT [Catalytic activity/Vol] 16 U/L <47 [facility] Serum or plasma albumin pati urement (mass/volume)Ordered By: Sally San on 11-21-2024 Albumin [Mass/Vol] 3.9 g/dL 3.4-4.8 [facility] Serum or plasma albumin/glob ulin mass ratioOrdered By: Sally San on 11-21-2024 Albumin/Globulin [Mass ratio] 1.7 {ratio} 0.9-2.4 [facility] Serum or plasma alkaline shayna sphatase measurementOrdered By: Sally San on 11-21-2024 ALP [Catalytic activity/Vol] 50 U/L 40-129 [facility] Serum or plasma calcium pati urement (mass/volume)Ordered By: Sally San on 11-21-2024 Calcium [Mass/Vol] 9.1 mg/dL 7.6-11.0 [facility] Serum or plasma urea nitroge n measurement (mass/volume)Ordered By: Sally San on 11-21-2024 Urea nitrogen [Mass/Vol] 23 mg/dL High 4-19 [facility] Sodium levelOrdered By: Sally San on 11-21-2024 Sodium [Moles/Vol] 137 mmol/L 133-145 [facility] Total proteinOrdered By: Chris San on 11-21-2024 Protein [Mass/Vol] 6.2 g/dL 5.9-8.4 [facility] White blood cell (WBC) count Ordered By: Sally San on 11-21-2024 WBC (Bld) [#/Vol] 5.4 10*3/uL 4.4-11.0 [facility] L Inj/Asp: bilateral kneeon 11-12-2024 Kaiser Leal MD 11/12/2024 9:03 AM L Inj/Asp: bilateral knee on 11/12/2024 9:00 AM Details: ultrasound-guided superolateral approach Medications (Right): 40 mg triamcinolone acetonide 40 mg/mL Medications (Left): 40 mg triamcinolone acetonide 40 mg/mL Procedure, treatment alternatives, risks and benefits explained, specific risks discussed. Immediately prior to procedure a time out was called to verify the correct patient, procedure, equipment, service support representative and site/side marked as required. Patient was prepped and draped in the usual sterile fashion. [facility] Work Phone: [facility] Work Phone: POINT OF CARE ULTRASOUND NO CHARGEon 11-12-2024 POINT OF CARE ULTRASOUND NO CHARGE These images are not reportable by radiology and will not be interpreted by Radiologists. Normal [facility] US Abdomenon 11-12-2024 These images are not reportable by radiology and will not be interpreted by Radiologists. IMAGING XR KNEE 4+ VIEWS BILATERALon 11-12-2024 XR KNEE 4+ VIEWS BILATERAL Interpreted By: Elizabeth Rousseau, STUDY: XR KNEE 4+ VIEWS BILATERAL; ; 11/12/2024 8:41 am INDICATION: Signs/Symptoms:NORBERTO KNEE PAIN OSTEOARTHRITIS. COMPARISON: None. ACCESSION NUMBER(S): [id number] ORDERING CLINICIAN: [facility] FINDINGS: No acute fracture or dislocation. No significant soft tissue swelling. Severe medial compartment joint space narrowing with subchondral sclerosis and marginal osteophytes. Large joint effusion bilaterally. Partially visualized left femoral IM nail. IMPRESSION: Medial compartment degenerative change bilaterally with large effusions. Signed by: Elizabeth Rousseau 11/13/2024 10:11 AM Dictation workstation: [id number] [facility] POINT OF CARE ULTRASOUND NO CHARGEon 10-30-2024 POINT OF CARE ULTRASOUND NO CHARGE These images are not reportable by radiology and will not be interpreted by Radiologists. Normal [facility] US Abdomenon 10-30-2024 These images are not reportable by radiology and will not be interpreted by Radiologists. IMAGING Absolute lymphocyte countOrd ered By: Luis Cooney on 10-10-2024 Lymphocytes Auto (Unsp spec) [#/Vol] 1.77 10*3/uL 0.83-4.51 [facility] Absolute neutrophil countOrd ered By: Luis Cooney on 10-10-2024 Neutrophils (Bld) [#/Vol] 2.3 10*3/uL 2.0-7.7 [facility] Anion gap in Serum or Plasma Ordered By: Luis Cooney on 10-10-2024 Anion gap [Moles/Vol] 10 mmol/L 5-15 [facility] Automated lymphocyte count a s percentage of total leukocytesOrdered By: Parmjitwesley Cooney on 10-10-2024 Lymphocytes/100 WBC Auto (Unsp spec) 34.4 % 19-41 [facility] BUN/creatinine ratioOrdered By: [facility] on 10-10-2024 Urea nitrogen/Creatinine [Mass ratio] 25.1 mg/mg High 10-20 [facility] Basophil percentageOrdered B y: Luis Cooney on 10-10-2024 Basophils/100 WBC (Bld) 0.8 % 0-1 [facility] Bilirubin, totalOrdered By: [facility] on 10-10-2024 Bilirubin [Mass/Vol] 0.48 mg/dL 0.00-1.30 [facility] CBC W/Diff, Automatedon 09-18 Absolute Lymph 1.77 X10 3/uL Normal 0.83-4.51 [facility] Comment on above: Performed By: #### L 500.4050, L501.9940, L100.0100 #### [facility] [address] [place], [address] Absolute Neut 2.3 X10 3/uL Normal 2.0-7.7 [facility] Comment on above: Performed By: #### L 500.4050, L501.9940, L100.0100 #### [facility] [address] [place], [address] Basophils/100 WBC (Bld) 0.8 % Normal 0-1 [facility] Comment on above: Performed By: #### L 500.4050, L501.9940, L100.0100 #### [facility] [address] [place], [address] Eosinophils/100 WBC (Bld) 5.6 % High 0-5 [facility] Comment on above: Performed By: #### L 500.4050, L501.9940, L100.0100 #### [facility] [address] [place], [address] Erythrocyte distribution width (RBC) [Ratio] 12.1 % Normal 11.6-14.6 [facility] Comment on above: Performed By: #### L 500.4050, L501.9940, L100.0100 #### [facility] [address] [place], [address] Hematocrit (Bld) [Volume fraction] 40.7 % Normal 40-54 [facility] Comment on above: Performed By: #### L 500.4050, L501.9940, L100.0100 #### [facility] [address] [place], [address] Hemoglobin (Bld) [Mass/Vol] 14.3 g/dL Normal 13.0-16.5 [facility] Comment on above: Performed By: #### L 500.4050, L501.9940, L100.0100 #### [facility] [address] [place], [address] IG% 0.400 Normal 0.0-0.9 [facility] Comment on above: Result Comment: IG% - Immature Granulocytes (promyelocytes, myelocytes and metamyelocytes) > 1% indicates that a LEFT SHIFT is Present. Performed By: #### L 500.4050, L501.9940, L100.0100 #### [facility] [address] [place], [address] Lymphocytes/100 WBC (Bld) 34.4 % Normal 19-41 [facility] Comment on above: Performed By: #### L 500.4050, L501.9940, L100.0100 #### [facility] [address] [place], [address] MCH (RBC) [Entitic mass] 31.9 pg Normal 27.0-32.0 [facility] Comment on above: Performed By: #### L 500.4050, L501.9940, L100.0100 #### [facility] [address] [place], [address] MCHC (RBC) [Mass/Vol] 35.1 g/dL Normal 32-36 [facility] Comment on above: Performed By: #### L 500.4050, L501.9940, L100.0100 #### [facility] [address] [place], [address] MCV (RBC) [Entitic vol] 90.8 fL Normal 80-94 [facility] Comment on above: Performed By: #### L 500.4050, L501.9940, L100.0100 #### [facility] [address] [place], [address] Monocytes/100 WBC (Bld) 13.4 % High 0-10 [facility] Comment on above: Performed By: #### L 500.4050, L501.9940, L100.0100 #### [facility] [address] [place], [address] Neutrophils/100 WBC (Bld) 45.4 % Low 47-70 [facility] Comment on above: Performed By: #### L 500.4050, L501.9940, L100.0100 #### [facility] [address] [place], [address] Nucleated RBC (Bld) [#/Vol] 0 10*3/uL Normal 0-5 [facility] Comment on above: Performed By: #### L 500.4050, L501.9940, L100.0100 #### [facility] [address] [place], [address] Platelet mean volume (Bld) [Entitic vol] 9.0 fL Normal 6.2-12.0 [facility] Comment on above: Performed By: #### L 500.4050, L501.9940, L100.0100 #### [facility] [address] [place], [address] Platelets (Bld) [#/Vol] 226 10*3/uL Normal 150-450 [facility] Comment on above: Performed By: #### L 500.4050, L501.9940, L100.0100 #### [facility] [address] [place], [address] RBC (Bld) [#/Vol] 4.48 10*6/uL Low 4.6-6.2 [facility] Comment on above: Performed By: #### L 500.4050, L501.9940, L100.0100 #### [facility] [address] [place], [address] RDW SD 40.5 fl Normal 35.1-43.9 [facility] Comment on above: Performed By: #### L 500.4050, L501.9940, L100.0100 #### [facility] [address] [place], [address] WBC (Bld) [#/Vol] 5.1 10*3/uL Normal 4.4-11.0 [facility] Comment on above: Performed By: #### L 500.4050, L501.9940, L100.0100 #### [facility] [address] [place], [address] Carbon dioxide, total [Moles /volume] in Central venous bloodOrdered By: Luis Cooney on 10-10-2024 CO2 [Moles/Vol] 25.3 mmol/L 21.0-32.0 [facility] Chloride assayOrdered By: Debi Cooney on 10-10-2024 Chloride [Moles/Vol] 102 mmol/L 98-108 [facility] Comprehensive Metabolic Prof ilon 10-10-2024 Albumin [Mass/Vol] 4.2 g/dL Normal 3.4-4.8 [facility] Comment on above: Performed By: #### L 500.4050, L501.9940, L100.0100 #### [facility] [address] [place], [address] Albumin/Globulin [Mass ratio] 1.9 {ratio} Normal 0.9-2.4 [facility] Comment on above: Performed By: #### L 500.4050, L501.9940, L100.0100 #### [facility] [address] [place], [address] ALK PHOS 52 U/L Normal 40-129 [facility] Comment on above: Performed By: #### L 500.4050, L501.9940, L100.0100 #### [facility] [address] [place], [address] ALT [Catalytic activity/Vol] 13 U/L Normal <=46 [facility] Comment on above: Performed By: #### L 500.4050, L501.9940, L100.0100 #### [facility] [address] [place], [address] AST [Catalytic activity/Vol] 24 U/L Normal <=37 [facility] Comment on above: Performed By: #### L 500.4050, L501.9940, L100.0100 #### [facility] [address] [place], [address] Bilirubin [Mass/Vol] 0.48 mg/dL Normal 0.00-1.30 [facility] Comment on above: Performed By: #### L 500.4050, L501.9940, L100.0100 #### [facility] [address] [place], [address] BUN/CRE 25.1 RATIO High 10-20 [facility] Comment on above: Performed By: #### L 500.4050, L501.9940, L100.0100 #### [facility] [address] [place], [address] Calcium [Mass/Vol] 9.5 mg/dL Normal 7.6-11.0 [facility] Comment on above: Performed By: #### L 500.4050, L501.9940, L100.0100 #### [facility] [address] [place], [address] Chloride [Moles/Vol] 102 mmol/L Normal 98-108 [facility] Comment on above: Performed By: #### L 500.4050, L501.9940, L100.0100 #### [facility] [address] [place], [address] CO2 [Moles/Vol] 25.3 mmol/L Normal 21.0-32.0 [facility] Comment on above: Performed By: #### L 500.4050, L501.9940, L100.0100 #### [facility] [address] [place], [address] Creatinine [Mass/Vol] 0.82 mg/dL Normal 0.70-1.20 [facility] Comment on above: Performed By: #### L 500.4050, L501.9940, L100.0100 #### [facility] [address] [place], [address] ECRCL 107.21 ml/min Normal 50-250 [facility] Comment on above: Performed By: #### L 500.4050, L501.9940, L100.0100 #### [facility] [address] [place], [address] GAP 10 Normal 5-15 [facility] Comment on above: Performed By: #### L 500.4050, L501.9940, L100.0100 #### [facility] [address] [place], [address] GFR/1.73 sq M.predicted among non-blacks MDRD (S/P/Bld) [Vol rate/Area] 99 mL/min/{1.73_m2} Normal >60 [facility] Comment on above: Result Comment: mL/m in/1.73m2 CKD-EPI Creatinine Equation (2020) Performed By: #### L 500.4050, L501.9940, L100.0100 #### [facility] [address] [place], [address] Globulin (S) [Mass/Vol] 2.3 g/dL Normal 2.2-4.2 [facility] Comment on above: Performed By: #### L 500.4050, L501.9940, L100.0100 #### [facility] [address] [place], [address] Glucose [Mass/Vol] 111 mg/dL High 70-99 [facility] Comment on above: Performed By: #### L 500.4050, L501.9940, L100.0100 #### [facility] [address] [place], [address] Potassium [Moles/Vol] 4.5 mmol/L Normal 3.3-5.1 [facility] Comment on above: Performed By: #### L 500.4050, L501.9940, L100.0100 #### [facility] [address] [place], [address] Sodium [Moles/Vol] 137 mmol/L Normal 133-145 [facility] Comment on above: Performed By: #### L 500.4050, L501.9940, L100.0100 #### [facility] [address] [place], [address] T PROT 6.5 g/dL Normal 5.9-8.4 [facility] Comment on above: Performed By: #### L 500.4050, L501.9940, L100.0100 #### [facility] [address] [place], [address] Urea nitrogen [Mass/Vol] 21 mg/dL High 4-19 [facility] Comment on above: Performed By: #### L 500.4050, L501.9940, L100.0100 #### [facility] [address] [place], [address] Eosinophil percentageOrdered By: Luis Cooney on 10-10-2024 Eosinophils/100 WBC (Bld) 5.6 % High 0-5 [facility] Erythrocyte distribution wid th ratioOrdered By: [facility] on 10-10-2024 Erythrocyte distribution width (RBC) [Ratio] 12.1 % 11.6-14.6 [facility] Erythrocyte distribution wid th standard deviationOrdered By: Luis Cooney on 10-10-2024 Erythrocyte distribution width (RBC) [Ratio] 40.5 fl 35.1-43.9 [facility] Glomerular filtration rate ( GFR) estimation/1.73 sq m using serum, plasma, or whole bOrdered By: Luis Cooney on 10-10-2024 GFR/1.73 sq M.predicted among non-blacks MDRD (S/P/Bld) [Vol rate/Area] 99 mL/min/{1.73_m2} >60 [facility] Comment on above: mL/min/1.73m2 CKD-EP I Creatinine Equation (2020) Hematocrit Auto (Bld) [Volum e fraction]Ordered By: Luis Cooney on 10-10-2024 Hematocrit (Bld) [Volume fraction] 40.7 % 40-54 [facility] Hemoglobin measurementOrdere d By: Luis Cooney on 10-10-2024 Hemoglobin (Bld) [Mass/Vol] 14.3 g/dL 13.0-16.5 [facility] Immature granulocytes/100 WB C Auto (Bld)Ordered By: Luis Cooney on 10-10-2024 Immature granulocytes/100 WBC (Bld) 0.400 % 0.0-0.9 [facility] Comment on above: IG% - Immature Granu locytes (promyelocytes, myelocytes and metamyelocytes) > 1% indicates that a LEFT SHIFT is Present. Laboratory - Chemistry and C hemistry - challengeOrdered By: Luis Cooney on 10-10-2024 AST [Catalytic activity/Vol] 24 U/L <38 [facility] MCV (mean corpuscular volume ) determinationOrdered By: [facility] on 10-10-[facility]24 MCV (RBC) [Entitic vol] 90.8 fL 80-94 [facility] Mean corpuscular hemoglobin (MCH) determinationOrdered By: [facility] on 10-10-2024 MCH (RBC) [Entitic mass] 31.9 pg 27.0-32.0 [facility] Mean corpuscular hemoglobin concentration (MCHC) determinationOrdered By: [facility] on 10-10-2024 MCHC (RBC) [Mass/Vol] 35.1 g/dL 32-36 [facility] Mean platelet volume determi nationOrdered By: [facility] on 10-10-2024 Platelet mean volume (Bld) [Entitic vol] 9.0 fL 6.2-12.0 [facility] Monocyte percentageOrdered B y: Luis Cooney on 10-10-2024 Monocytes/100 WBC (Bld) 13.4 % High 0-10 [facility] Neutrophil percentageOrdered By: [facility] on 10-10-2024 Neutrophils/100 WBC (Bld) 45.4 % Low 47-70 [facility] Nucleated red blood cell per centageOrdered By: [facility] on 10-10-2024 Nucleated RBC/100 WBC (Bld) [Ratio] 0 % 0-5 [facility] Oncology Visit Reporton 09-[address] [facility] [address] [place] [address] OFFICE VISIT Date of Service: 10/10/24 1118 MR#: [id number] Acct: [id number] Name: SAE KAPADIA Rep #: [id number] : 1960 From: Sally San C D STILL OPERATOR C D STILL OPERATOR -C Age/Sex: 64/M Location: [facility] Status: Signed HPI Subjective Date of Service 10/10/24 Chief Complaint Prostate cancer on treatment History of Present Illness Patient is a 64-year-old gentleman, lopez, who noted a painless left groin mass in July 2017, thought to be a hernia for which September 13, 2017:???CT scan of the abdomen and pelvis??? revealed marked retroperitoneal, periaortic, and left iliac adenopathy with the largest lymph node mass measuring 5.6 cm in the lower periaortic/co mmon iliac chain, together with a CT scan of the chest on September 21 showed no visceral metastatic disease. September 21, 2017:???A CT-guided biopsy of retroperitoneal lymph nodes??? revealed metastatic adenocarcinoma PSA positive consistent with metastatic prostate cancer.?Cancer is microsatellite stable???[facility] October 2020 genetic testing at for a 47 gene panel showed no known pathogenic mutation, was a variant of uncertain significance. September 29, 2017:??? PSA >154. September 28, 2017:???A bone scan??? showed changes within the vertebral spine that were thought degenerative and inflammatory. He received a Lupron injection in September 2017 under the care of his urologist Dr. Jimenez, with Casodex cover in the first month then referred for a second opinion at where he was seen again by urologist Dr. Conn who informed him that his disease was non-operable, advised continued androgen deprivation therapy and consultation with medical oncology.??? He was also seen by radiation oncology at [facility] by Dr. Murray who advised medical management. December 26, 2017:???A follow-up??? bone scan??? showed interval progressive changes scattered throughout the axial and proximal appendicular skeleton in addition to several small new foci highly suspicious for progressive osseous metastatic disease. December 22, 2017:???PSA??? down to 20 and his testosterone level was consistent with a castrate level of 8. February 19, 2018:???Patient is transferring care to [facility] for proximity to his residence, PSA??? further down to 13. July 31, 2018: Bone scan: IMPRESSION: 1.??? The increased radiopharmaceutical concentration identified in the third thoracic vertebra may be further investigated with plain film radiography in the setting of known prostate carcinoma if not previously obtained. ??? 2.??? Degenerative arthritis remains apparent in the thoracic and lumbar spine, sacrum, left hip, bilateral shoulders elbows bilaterally, left wrist, right-left knees and right ankle articulation. ??? 3.??? Overall compared to the previous whole body bone scintigraphy study dated 12/26/2017, the persistent increase in tracer uptake noted in the third thoracic vertebra warrants further evaluation with plain film radiography is not previously obtained. Otherwise, there is no significant interval change compared to the prior examination. February 2019 bone scan: IMPRESSION: 1.??? The increase in radiopharmaceutical concentration identified in the cervical thoracic and lumbar spine, both shoulders, sacrum, wrist and elbow articulations bilaterally, right and left hips, both knees is commensurate with degenerative arthritis. ???2.??? Overall compared to the previous whole body bone scintigraphy study dated 07/31/2018, there is no significant interval change.??? There is no present typical scintigraphic evidence of diffuse axial skeletal metastatic disease. October 17, 2019 bone scan: IMPRESSION: 1. The increase in radiopharmaceutical distribution currently defined in the cervical, thoracic and lumbar spine, sacrum, bilateral shoulders, left elbow, right-left knees, the right ankle and left wrist are commensurate with degenerative arthritis. 2.??? Overall compared to the previous whole body bone scintigraphy study dated 03/19/2019, there is no significant interval change.??? No current typical scintigraphic evidence of diffuse axial skeletal metastatic disease is demonstrated on the present examination. March 18, 2020 bone scan: IMPRESSION: 1.??? The increase in tracer distribution defined in the cervical, thoracic and lumbar spine, sacrum, right and left shoulders, knees bilaterally, both wrist articulations is commensurate with degenerative arthritis. 2.??? Overall compared to the previous whole body bone scintigraphy study dated 10/17/2019, there is no significant interval change.??? No current typical scintigraphic evidence of skeletal metastatic disease is demonstrated on the current examination. April 20, 2020 CT abdomen and pelvis: (more content not included)... Normal [facility] PSA,Total- Diagnosticon 09-18 PSA, DIAGNOSTIC < 0.02 Normal 0.00-4.00 [facility] Comment on above: Result Comment: This test was performed using the [employer] tPSA method. Measured values of a patient??sample can vary depending on the testing procedure used. PSA values determined on patient samples by different testing procedures cannot be used interchangeably. If there is a change in PSA assays while monitoring therapy, sequential testing should be performed to confirm baseline values. Performed By: #### L 500.4050, L501.9940, L100.0100 #### [facility] [address] [place], [address] Platelet countOrdered By: Debi Cooney on 10-10-2024 Platelets (Bld) [#/Vol] 226 10*3/uL 150-450 [facility] Potassium measurement (mass/ volume)Ordered By: Luis Cooney on 10-10-2024 Potassium (Unsp spec) [Mass/Vol] 4.5 mmol/L 3.3-5.1 [facility] RBC Auto (Bld) [#/Vol]Ordere d By: Luis Cooney on 10-10-2024 RBC (Bld) [#/Vol] 4.48 10*6/uL Low 4.6-6.2 [facility] Serum creatinine measurement (mass/volume)Ordered By: Luis Cooney on 10-10-2024 Creatinine [Mass/Vol] 0.82 mg/dL 0.70-1.20 [facility] Serum globulin measurementOr dered By: Luis Cooney on 10-10-2024 Globulin (S) [Mass/Vol] 2.3 g/dL 2.2-4.2 [facility] Serum glucose measurement (m ass/volume)Ordered By: Luis Cooney on 10-10-2024 Glucose [Mass/Vol] 111 mg/dL High 70-99 [facility] Serum or plasma alanine sutton otransferase (ALT) measurementOrdered By: Luis Cooney on 10-10-2024 ALT [Catalytic activity/Vol] 13 U/L <47 [facility] Serum or plasma albumin pati urement (mass/volume)Ordered By: Luis Cooney on 10-10-2024 Albumin [Mass/Vol] 4.2 g/dL 3.4-4.8 [facility] Serum or plasma albumin/glob ulin mass ratioOrdered By: Luis Cooney on 10-10-2024 Albumin/Globulin [Mass ratio] 1.9 {ratio} 0.9-2.4 [facility] Serum or plasma alkaline shayna sphatase measurementOrdered By: Luis Cooney on 10-10-2024 ALP [Catalytic activity/Vol] 52 U/L 40-129 [facility] Serum or plasma calcium pait urement (mass/volume)Ordered By: Luis Cooney on 10-10-2024 Calcium [Mass/Vol] 9.5 mg/dL 7.6-11.0 [facility] Serum or plasma urea nitroge n measurement (mass/volume)Ordered By: Luis Cooney on 10-10-2024 Urea nitrogen [Mass/Vol] 21 mg/dL High 4-19 [facility] Sodium levelOrdered By: Parmjit Cooeny on 10-10-2024 Sodium [Moles/Vol] 137 mmol/L 133-145 [facility] Total proteinOrdered By: Garrison Cooney on 10-10-2024 Protein [Mass/Vol] 6.5 g/dL 5.9-8.4 [facility] White blood cell (WBC) count Ordered By: Luis Cooney on 10-10-2024 WBC (Bld) [#/Vol] 5.1 10*3/uL 4.4-11.0 [facility] Absolute lymphocyte countOrd ered By: Sally San on 08-29-2024 Lymphocytes Auto (Unsp spec) [#/Vol] 1.62 10*3/uL 0.83-4.51 [facility] Absolute neutrophil countOrd ered By: Sally San on 08-29-2024 Neutrophils (Bld) [#/Vol] 3.3 10*3/uL 2.0-7.7 [facility] Anion gap in Serum or Plasma Ordered By: Sally San on 08-29-2024 Anion gap [Moles/Vol] 10 mmol/L 5-15 [facility] Automated lymphocyte count a s percentage of total leukocytesOrdered By: Sally San on 08-29-2024 Lymphocytes/100 WBC Auto (Unsp spec) 27.9 % 19- [facility] BUN/creatinine ratioOrdered By: Sallymagdiel MaharajMena on 08-29-2024 Urea nitrogen/Creatinine [Mass ratio] 37.3 mg/mg High 10-20 [facility] Basophil percentageOrdered B y: Sally Mena on 08-29-2024 Basophils/100 WBC (Bld) 0.3 % 0-1 [facility] Bilirubin, totalOrdered By: Sally MaharajMena on 08-29-2024 Bilirubin [Mass/Vol] 0.52 mg/dL 0.00-1.30 [facility] CBC W/Diff, Automatedon 08-18 Absolute Lymph 1.62 X10 3/uL Normal 0.83-4.51 [facility] Comment on above: Performed By: #### L 501.9940, L500.4050, L100.0100 #### [facility] [address] [place], [address] Absolute Neut 3.3 X10 3/uL Normal 2.0-7.7 [facility] Comment on above: Performed By: #### L 501.9940, L500.4050, L100.0100 #### [facility] [address] [place], [address] Basophils/100 WBC (Bld) 0.3 % Normal 0-1 [facility] Comment on above: Performed By: #### L 501.9940, L500.4050, L100.0100 #### [facility] [address] [place], [address] Eosinophils/100 WBC (Bld) 3.1 % Normal 0-5 [facility] Comment on above: Performed By: #### L 501.9940, L500.4050, L100.0100 #### [facility] [address] [place], [address] Erythrocyte distribution width (RBC) [Ratio] 12.6 % Normal 11.6-14.6 [facility] Comment on above: Performed By: #### L 501.9940, L500.4050, L100.0100 #### [facility] [address] [place], [address] Hematocrit (Bld) [Volume fraction] 40.8 % Normal 40-54 [facility] Comment on above: Performed By: #### L 501.9940, L500.4050, L100.0100 #### [facility] [address] [place], [address] Hemoglobin (Bld) [Mass/Vol] 13.8 g/dL Normal 13.0-16.5 [facility] Comment on above: Performed By: #### L 501.9940, L500.4050, L100.0100 #### [facility] [address] [place], [address] IG% 0.500 Normal 0.0-0.9 [facility] Comment on above: Result Comment: IG% - Immature Granulocytes (promyelocytes, myelocytes and metamyelocytes) > 1% indicates that a LEFT SHIFT is Present. Performed By: #### L 501.9940, L500.4050, L100.0100 #### [facility] [address] [place], [address] Lymphocytes/100 WBC (Bld) 27.9 % Normal 19-41 [facility] Comment on above: Performed By: #### L 501.9940, L500.4050, L100.0100 #### [facility] [address] [place], [address] MCH (RBC) [Entitic mass] 31.4 pg Normal 27.0-32.0 [facility] Comment on above: Performed By: #### L 501.9940, L500.4050, L100.0100 #### [facility] [address] [place], [address] MCHC (RBC) [Mass/Vol] 33.8 g/dL Normal 32-36 [facility] Comment on above: Performed By: #### L 501.9940, L500.4050, L100.0100 #### [facility] [address] [place], [address] MCV (RBC) [Entitic vol] 92.7 fL Normal 80-94 [facility] Comment on above: Performed By: #### L 501.9940, L500.4050, L100.0100 #### [facility] [address] [place], [address] Monocytes/100 WBC (Bld) 11.9 % High 0-10 [facility] Comment on above: Performed By: #### L 501.9940, L500.4050, L100.0100 #### [facility] [address] [place], [address] Neutrophils/100 WBC (Bld) 56.3 % Normal 47-70 [facility] Comment on above: Performed By: #### L 501.9940, L500.4050, L100.0100 #### [facility] [address] [place], [address] Nucleated RBC (Bld) [#/Vol] 0 10*3/uL Normal 0-5 [facility] Comment on above: Performed By: #### L 501.9940, L500.4050, L100.0100 #### [facility] [address] [place], [address] Platelet mean volume (Bld) [Entitic vol] 9.1 fL Normal 6.2-12.0 [facility] Comment on above: Performed By: #### L 501.9940, L500.4050, L100.0100 #### [facility] [address] [place], [address] Platelets (Bld) [#/Vol] 203 10*3/uL Normal 150-450 [facility] Comment on above: Performed By: #### L 501.9940, L500.4050, L100.0100 #### [facility] [address] [place], [address] RBC (Bld) [#/Vol] 4.40 10*6/uL Low 4.6-6.2 [facility] Comment on above: Performed By: #### L 501.9940, L500.4050, L100.0100 #### [facility] [address] [place], [address] RDW SD 43.0 fl Normal 35.1-43.9 [facility] Comment on above: Performed By: #### L 501.9940, L500.4050, L100.0100 #### [facility] [address] [place], [address] WBC (Bld) [#/Vol] 5.8 10*3/uL Normal 4.4-11.0 [facility] Comment on above: Performed By: #### L 501.9940, L500.4050, L100.0100 #### [facility] [address] [place], [address] Carbon dioxide, total [Moles /volume] in Central venous bloodOrdered By: Sally San on 08-29-2024 CO2 [Moles/Vol] 24.9 mmol/L 21.0-32.0 [facility] Chloride assayOrdered By: Jermaine San on 08-29-2024 Chloride [Moles/Vol] 107 mmol/L 98-108 [facility] Comprehensive Metabolic Prof ilon 08-29-2024 Albumin [Mass/Vol] 4.2 g/dL Normal 3.4-4.8 [facility] Comment on above: Performed By: #### L 501.9940, L500.4050, L100.0100 #### [facility] [address] [place], [address] Albumin/Globulin [Mass ratio] 1.7 {ratio} Normal 0.9-2.4 [facility] Comment on above: Performed By: #### L 501.9940, L500.4050, L100.0100 #### [facility] [address] [place], [address] ALK PHOS 49 U/L Normal 40-129 [facility] Comment on above: Performed By: #### L 501.9940, L500.4050, L100.0100 #### [facility] [address] [place], [address] ALT [Catalytic activity/Vol] 18 U/L Normal <=46 [facility] Comment on above: Performed By: #### L 501.9940, L500.4050, L100.0100 #### [facility] [address] [place], [address] AST [Catalytic activity/Vol] 26 U/L Normal <=37 [facility] Comment on above: Performed By: #### L 501.9940, L500.4050, L100.0100 #### [facility] [address] [place], [address] Bilirubin [Mass/Vol] 0.52 mg/dL Normal 0.00-1.30 [facility] Comment on above: Performed By: #### L 501.9940, L500.4050, L100.0100 #### [facility] [address] [place], [address] BUN/CRE 37.3 RATIO High 10-20 [facility] Comment on above: Performed By: #### L 501.9940, L500.4050, L100.0100 #### [facility] [address] [place], [address] Calcium [Mass/Vol] 9.8 mg/dL Normal 7.6-11.0 [facility] Comment on above: Performed By: #### L 501.9940, L500.4050, L100.0100 #### [facility] [address] [place], [address] Chloride [Moles/Vol] 107 mmol/L Normal 98-108 [facility] Comment on above: Performed By: #### L 501.9940, L500.4050, L100.0100 #### [facility] [address] [place], [address] CO2 [Moles/Vol] 24.9 mmol/L Normal 21.0-32.0 [facility] Comment on above: Performed By: #### L 501.9940, L500.4050, L100.0100 #### [facility] [address] [place], [address] Creatinine [Mass/Vol] 0.82 mg/dL Normal 0.70-1.20 [facility] Comment on above: Performed By: #### L 501.9940, L500.4050, L100.0100 #### [facility] [address] [place], [address] ECRCL 108.60 ml/min Normal 50-250 [facility] Comment on above: Performed By: #### L 501.9940, L500.4050, L100.0100 #### [facility] [address] [place], [address] GAP 10 Normal 5-15 [facility] Comment on above: Performed By: #### L 501.9940, L500.4050, L100.0100 #### [facility] [address] [place], [address] GFR/1.73 sq M.predicted among non-blacks MDRD (S/P/Bld) [Vol rate/Area] 99 mL/min/{1.73_m2} Normal >60 [facility] Comment on above: Result Comment: mL/m in/1.73m2 CKD-EPI Creatinine Equation (2020) Performed By: #### L 501.9940, L500.4050, L100.0100 #### [facility] [address] [place], [address] Globulin (S) [Mass/Vol] 2.5 g/dL Normal 2.2-4.2 [facility] Comment on above: Performed By: #### L 501.9940, L500.4050, L100.0100 #### [facility] [address] [place], [address] Glucose [Mass/Vol] 106 mg/dL High 70-99 [facility] Comment on above: Performed By: #### L 501.9940, L500.4050, L100.0100 #### [facility] [address] [place], [address] Potassium [Moles/Vol] 4.2 mmol/L Normal 3.3-5.1 [facility] Comment on above: Performed By: #### L 501.9940, L500.4050, L100.0100 #### [facility] [address] [place], [address] Sodium [Moles/Vol] 142 mmol/L Normal 133-145 [facility] Comment on above: Performed By: #### L 501.9940, L500.4050, L100.0100 #### [facility] [address] [place], [address] T PROT 6.7 g/dL Normal 5.9-8.4 [facility] Comment on above: Performed By: #### L 501.9940, L500.4050, L100.0100 #### [facility] [address] [place], [place], [address] Urea nitrogen [Mass/Vol] 31 mg/dL High 4-19 [facility] Comment on above: Performed By: #### L 501.9940, L500.4050, L100.0100 #### [facility] [address] [place], [address] Eosinophil percentageOrdered By: Sally San on 08-29-2024 Eosinophils/100 WBC (Bld) 3.1 % 0-5 [facility] Erythrocyte distribution wid th ratioOrdered By: Sally San on 08-29-2024 Erythrocyte distribution width (RBC) [Ratio] 12.6 % 11.6-14.6 [facility] Erythrocyte distribution wid th standard deviationOrdered By: [facility] on 08-29-2024 Erythrocyte distribution width (RBC) [Ratio] 43.0 fl 35.1-43.9 [facility] Glomerular filtration rate ( GFR) estimation/1.73 sq m using serum, plasma, or whole bOrdered By: Sally San on 08-29-2024 GFR/1.73 sq M.predicted among non-blacks MDRD (S/P/Bld) [Vol rate/Area] 99 mL/min/{1.73_m2} >60 [facility] Comment on above: mL/min/1.73m2 CKD-EP I Creatinine Equation (2020) Hematocrit Auto (Bld) [Volum e fraction]Ordered By: Sally San on 08-29-2024 Hematocrit (Bld) [Volume fraction] 40.8 % 40-54 [facility] Hemoglobin measurementOrdere d By: Sally San on 08-29-2024 Hemoglobin (Bld) [Mass/Vol] 13.8 g/dL 13.0-16.5 [facility] Immature granulocytes/100 WB C Auto (Bld)Ordered By: Sally San on 08-29-2024 Immature granulocytes/100 WBC (Bld) 0.500 % 0.0-0.9 [facility] Comment on above: IG% - Immature Granu locytes (promyelocytes, myelocytes and metamyelocytes) > 1% indicates that a LEFT SHIFT is Present. Laboratory - Chemistry and C hemistry - challengeOrdered By: Sally San on 08-29-2024 AST [Catalytic activity/Vol] 26 U/L <38 [facility] MCV (mean corpuscular volume ) determinationOrdered By: Sally Mena on 08-29-2024 MCV (RBC) [Entitic vol] 92.7 fL 80-94 [facility] Mean corpuscular hemoglobin (MCH) determinationOrdered By: [facility] 08-29-2024 MCH (RBC) [Entitic mass] 31.4 pg 27.0-32.0 [facility] Mean corpuscular hemoglobin concentration (MCHC) determinationOrdered By: [facility] on 08-29-2024 MCHC (RBC) [Mass/Vol] 33.8 g/dL 32-36 [facility] Mean platelet volume determi nationOrdered By: Sally San on 08-29-2024 Platelet mean volume (Bld) [Entitic vol] 9.1 fL 6.2-12.0 [facility] Monocyte percentageOrdered B y: Sally San on 08-29-2024 Monocytes/100 WBC (Bld) 11.9 % High 0-10 [facility] Neutrophil percentageOrdered By: [facility] on 08-29-2024 Neutrophils/100 WBC (Bld) 56.3 % 47-70 [facility] Nucleated red blood cell per centageOrdered By: Sally San on 08-29-2024 Nucleated RBC/100 WBC (Bld) [Ratio] 0 % 0-5 [facility] Oncology Visit Reporton 08-[address] [facility] [place] [facility] [address] [place] [address] OFFICE VISIT Date of Service: 08/29/24 1129 MR#: [id number] Acct: [id number] Name: STEFFISAE FRACISCO Rep #: [id number] : 1960 From: Luis Cooney MD Age/Sex: 63/M Location: [facility] Status: Signed HPI Subjective Date of Service 08/29/24 Chief Complaint Prostate cancer on treatment History of Present Illness Patient is a 62-year-old gentleman, lopez, who noted a painless left groin mass in July 2017, thought to be a hernia for which September 13, 2017:???CT scan of the abdomen and pelvis??? revealed marked retroperitoneal, periaortic, and left iliac adenopathy with the largest lymph node mass measuring 5.6 cm in the lower periaortic/co mmon iliac chain, together with a CT scan of the chest on September 21 showed no visceral metastatic disease. September 21, 2017:???A CT-guided biopsy of retroperitoneal lymph nodes??? revealed metastatic adenocarcinoma PSA positive consistent with metastatic prostate cancer.?Cancer is microsatellite stable[facility] October 2020 genetic testing at for a 47 gene panel showed no known pathogenic mutation, was a variant of uncertain significance. September 29, 2017:??? PSA >154. September 28, 2017:???A bone scan??? showed changes within the vertebral spine that were thought degenerative and inflammatory. He received a Lupron injection in September 2017 under the care of his urologist Dr. Jimenez, with Casodex cover in the first month then referred for a second opinion at where he was seen again by urologist Dr. Conn who informed him that his disease was non-operable, advised continued androgen deprivation therapy and consultation with medical oncology.??? He was also seen by radiation oncology at [facility] by Dr. Murray who advised medical management. December 26, 2017:???A follow-up??? bone scan??? showed interval progressive changes scattered throughout the axial and proximal appendicular skeleton in addition to several small new foci highly suspicious for progressive osseous metastatic disease. December 22, 2017:???PSA??? down to 20 and his testosterone level was consistent with a castrate level of 8. February 19, 2018:???Patient is transferring care to [facility] for proximity to his residence, PSA??? further down to 13. July 31, 2018: Bone scan: IMPRESSION: 1.??? The increased radiopharmaceutical concentration identified in the third thoracic vertebra may be further investigated with plain film radiography in the setting of known prostate carcinoma if not previously obtained. ??? 2.??? Degenerative arthritis remains apparent in the thoracic and lumbar spine, sacrum, left hip, bilateral shoulders elbows bilaterally, left wrist, right-left knees and right ankle articulation. ??? 3.??? Overall compared to the previous whole body bone scintigraphy study dated 12/26/2017, the persistent increase in tracer uptake noted in the third thoracic vertebra warrants further evaluation with plain film radiography is not previously obtained. Otherwise, there is no significant interval change compared to the prior examination. February 2019 bone scan: IMPRESSION: 1.??? The increase in radiopharmaceutical concentration identified in the cervical thoracic and lumbar spine, both shoulders, sacrum, wrist and elbow articulations bilaterally, right and left hips, both knees is commensurate with degenerative arthritis. ???2.??? Overall compared to the previous whole body bone scintigraphy study dated 07/31/2018, there is no significant interval change.??? There is no present typical scintigraphic evidence of diffuse axial skeletal metastatic disease. October 17, 2019 bone scan: IMPRESSION: 1. The increase in radiopharmaceutical distribution currently defined in the cervical, thoracic and lumbar spine, sacrum, bilateral shoulders, left elbow, right-left knees, the right ankle and left wrist are commensurate with degenerative arthritis. 2.??? Overall compared to the previous whole body bone scintigraphy study dated 03/19/2019, there is no significant interval change.??? No current typical scintigraphic evidence of diffuse axial skeletal metastatic disease is demonstrated on the present examination. March 18, 2020 bone scan: IMPRESSION: 1.??? The increase in tracer distribution defined in the cervical, thoracic and lumbar spine, sacrum, right and left shoulders, knees bilaterally, both wrist articulations is commensurate with degenerative arthritis. 2.??? Overall compared to the previous whole body bone scintigraphy study dated 10/17/2019, there is no significant interval change.??? No current typical scintigraphic evidence of skeletal metastatic disease is demonstrated on the current examination. April 20, 2020 CT abdomen and pelvis: Co (more content not included)... Normal [facility] PSA,Total- Diagnosticon 08-18 PSA, DIAGNOSTIC < 0.02 Normal 0.00-4.00 [facility] Comment on above: Result Comment: This test was performed using the [employer] tPSA method. Measured values of a patient??sample can vary depending on the testing procedure used. PSA values determined on patient samples by different testing procedures cannot be used interchangeably. If there is a change in PSA assays while monitoring therapy, sequential testing should be performed to confirm baseline values. Performed By: #### L 501.9940, L500.4050, L100.0100 #### [facility] [address] [place], [address] Platelet countOrdered By: Jermaine San on 08-29-2024 Platelets (Bld) [#/Vol] 203 10*3/uL 150-450 [facility] Potassium measurement (mass/ volume)Ordered By: Sally San on 08-29-2024 Potassium (Unsp spec) [Mass/Vol] 4.2 mmol/L 3.3-5.1 [facility] RBC Auto (Bld) [#/Vol]Ordere d By: Sally San on 08-29-2024 RBC (Bld) [#/Vol] 4.40 10*6/uL Low 4.6-6.2 [facility] Serum creatinine measurement (mass/volume)Ordered By: Sally San on 08-29-2024 Creatinine [Mass/Vol] 0.82 mg/dL 0.70-1.20 [facility] Serum globulin measurementOr dered By: Sally San on 08-29-2024 Globulin (S) [Mass/Vol] 2.5 g/dL 2.2-4.2 [facility] Serum glucose measurement (m ass/volume)Ordered By: Sally San on 08-29-2024 Glucose [Mass/Vol] 106 mg/dL High 70-99 [facility] Serum or plasma alanine sutton otransferase (ALT) measurementOrdered By: Sally San on 08-29-2024 ALT [Catalytic activity/Vol] 18 U/L <47 [facility] Serum or plasma albumin pati urement (mass/volume)Ordered By: Sally San on 08-29-2024 Albumin [Mass/Vol] 4.2 g/dL 3.4-4.8 [facility] Serum or plasma albumin/glob ulin mass ratioOrdered By: Sally San on 08-29-2024 Albumin/Globulin [Mass ratio] 1.7 {ratio} 0.9-2.4 [facility] Serum or plasma alkaline shayna sphatase measurementOrdered By: Sally San on 08-29-2024 ALP [Catalytic activity/Vol] 49 U/L 40-129 [facility] Serum or plasma calcium pati urement (mass/volume)Ordered By: Sally San on 08-29-2024 Calcium [Mass/Vol] 9.8 mg/dL 7.6-11.0 [facility] Serum or plasma urea nitroge n measurement (mass/volume)Ordered By: Sally San on 08-29-2024 Urea nitrogen [Mass/Vol] 31 mg/dL High 4-19 [facility] Sodium levelOrdered By: Sally San on 08-29-2024 Sodium [Moles/Vol] 142 mmol/L 133-145 [facility] Total proteinOrdered By: Chris San on 08-29-2024 Protein [Mass/Vol] 6.7 g/dL 5.9-8.4 [facility] White blood cell (WBC) count Ordered By: Sally San on 08-29-2024 WBC (Bld) [#/Vol] 5.8 10*3/uL 4.4-11.0 [facility] L Inj/Asp: bilateral kneeon 08-13-2024 Kaiser Leal MD 08/13/2024 9:17 AM L Inj/Asp: bilateral knee on 08/13/2024 9:16 AM Details: ultrasound-guided superolateral approach Medications (Right): 40 mg triamcinolone acetonide 40 mg/mL Medications (Left): 40 mg triamcinolone acetonide 40 mg/mL Procedure, treatment alternatives, risks and benefits explained, specific risks discussed. Immediately prior to procedure a time out was called to verify the correct patient, procedure, equipment, service support representative and site/side marked as required. Patient was prepped and draped in the usual sterile fashion. [facility] Work Phone: [facility] Work Phone: POINT OF CARE ULTRASOUND NO CHARGEon 08-13-2024 POINT OF CARE ULTRASOUND NO CHARGE These images are not reportable by radiology and will not be interpreted by Radiologists. Normal [facility] US Abdomenon 08-13-2024 These images are not reportable by radiology and will not be interpreted by Radiologists. IMAGING CBC W/Diff, Automatedon 05- Absolute Lymph 1.89 X10 3/uL Normal 0.83-4.51 [facility] Comment on above: Performed By: #### L 501.9940, L500.4050, L100.0100 #### [facility] [address] [place], [address] Absolute Neut 2.5 X10 3/uL Normal 2.0-7.7 [facility] Comment on above: Performed By: #### L 501.9940, L500.4050, L100.0100 #### [facility] [address] [place], [address] Basophils/100 WBC (Bld) 0.9 % Normal 0-1 [facility] Comment on above: Performed By: #### L 501.9940, L500.4050, L100.0100 #### [facility] [address] [place], [address] Eosinophils/100 WBC (Bld) 7.8 % High 0-5 [facility] Comment on above: Performed By: #### L 501.9940, L500.4050, L100.0100 #### [facility] [address] [place], [address] Erythrocyte distribution width (RBC) [Ratio] 12.1 % Normal 11.6-14.6 [facility] Comment on above: Performed By: #### L 501.9940, L500.4050, L100.0100 #### [facility] [address] [place], [address] Hematocrit (Bld) [Volume fraction] 40.1 % Normal 40-54 [facility] Comment on above: Performed By: #### L 501.9940, L500.4050, L100.0100 #### [facility] [address] [place], [address] Hemoglobin (Bld) [Mass/Vol] 14.1 g/dL Normal 13.0-16.5 [facility] Comment on above: Performed By: #### L 501.9940, L500.4050, L100.0100 #### [facility] [address] [place], [address] IG% 0.600 Normal 0.0-0.9 [facility] Comment on above: Result Comment: IG% - Immature Granulocytes (promyelocytes, myelocytes and metamyelocytes) > 1% indicates that a LEFT SHIFT is Present. Performed By: #### L 501.9940, L500.4050, L100.0100 #### [facility] [address] [place], [address] Lymphocytes/100 WBC (Bld) 35.1 % Normal 19-41 [facility] Comment on above: Performed By: #### L 501.9940, L500.4050, L100.0100 #### [facility] [address] [place], [address] MCH (RBC) [Entitic mass] 31.3 pg Normal 27.0-32.0 [facility] Comment on above: Performed By: #### L 501.9940, L500.4050, L100.0100 #### [facility] [address] [place], [address] MCHC (RBC) [Mass/Vol] 35.2 g/dL Normal 32-36 [facility] Comment on above: Performed By: #### L 501.9940, L500.4050, L100.0100 #### [facility] [address] [place], [address] MCV (RBC) [Entitic vol] 88.9 fL Normal 80-94 [facility] Comment on above: Performed By: #### L 501.9940, L500.4050, L100.0100 #### [facility] [address] [place], [address] Monocytes/100 WBC (Bld) 8.4 % Normal 0-10 [facility] Comment on above: Performed By: #### L 501.9940, L500.4050, L100.0100 #### [facility] [address] [place], [address] Neutrophils/100 WBC (Bld) 47.2 % Normal 47-70 [facility] Comment on above: Performed By: #### L 501.9940, L500.4050, L100.0100 #### [facility] [address] [place], [address] Nucleated RBC (Bld) [#/Vol] 0 10*3/uL Normal 0-5 [facility] Comment on above: Performed By: #### L 501.9940, L500.4050, L100.0100 #### [facility] [address] [place], [address] Platelet mean volume (Bld) [Entitic vol] 9.5 fL Normal 6.2-12.0 [facility] Comment on above: Performed By: #### L 501.9940, L500.4050, L100.0100 #### [facility] [address] [place], [address] Platelets (Bld) [#/Vol] 241 10*3/uL Normal 150-450 [facility] Comment on above: Performed By: #### L 501.9940, L500.4050, L100.0100 #### [facility] [address] [place], [address] RBC (Bld) [#/Vol] 4.51 10*6/uL Low 4.6-6.2 [facility] Comment on above: Performed By: #### L 501.9940, L500.4050, L100.0100 #### [facility] [address] [place], [address] RDW SD 39.5 fl Normal 35.1-43.9 [facility] Comment on above: Performed By: #### L 501.9940, L500.4050, L100.0100 #### [facility] [address] [place], [address] WBC (Bld) [#/Vol] 5.4 10*3/uL Normal 4.4-11.0 [facility] Comment on above: Performed By: #### L 501.9940, L500.4050, L100.0100 #### [facility] [address] [place], [address] Comprehensive Metabolic Prof [facility] 07-18-2024 Albumin [Mass/Vol] 4.1 g/dL Normal 3.4-4.8 [facility] Comment on above: Performed By: #### L 501.9940, L500.4050, L100.0100 #### [facility] [address] [place], [address] Albumin/Globulin [Mass ratio] 1.6 {ratio} Normal 0.9-2.4 [facility] Comment on above: Performed By: #### L 501.9940, L500.4050, L100.0100 #### [facility] [address] [place], [address] ALK PHOS 56 U/L Normal 40-129 [facility] Comment on above: Performed By: #### L 501.9940, L500.4050, L100.0100 #### [facility] [address] [place], [address] ALT [Catalytic activity/Vol] 15 U/L Normal <=46 [facility] Comment on above: Performed By: #### L 501.9940, L500.4050, L100.0100 #### [facility] [address] [place], [address] AST [Catalytic activity/Vol] 27 U/L Normal <=37 [facility] Comment on above: Performed By: #### L 501.9940, L500.4050, L100.0100 #### [facility] [address] [place], [address] Bilirubin [Mass/Vol] 0.42 mg/dL Normal 0.00-1.30 [facility] Comment on above: Performed By: #### L 501.9940, L500.4050, L100.0100 #### [facility] [address] [place], [address] BUN/CRE 22.6 RATIO High 10-20 [facility] Comment on above: Performed By: #### L 501.9940, L500.4050, L100.0100 #### [facility] [address] [place], [address] Calcium [Mass/Vol] 9.3 mg/dL Normal 7.6-11.0 [facility] Comment on above: Performed By: #### L 501.9940, L500.4050, L100.0100 #### [facility] [address] [place], [address] Chloride [Moles/Vol] 103 mmol/L Normal 98-108 [facility] Comment on above: Performed By: #### L 501.9940, L500.4050, L100.0100 #### [facility] [address] [place], [address] CO2 [Moles/Vol] 24.1 mmol/L Normal 21.0-32.0 [facility] Comment on above: Performed By: #### L 501.9940, L500.4050, L100.0100 #### [facility] [address] [place], [address] Creatinine [Mass/Vol] 0.79 mg/dL Normal 0.70-1.20 [facility] Comment on above: Performed By: #### L 501.9940, L500.4050, L100.0100 #### [facility] [address] [place], [address] ECRCL 112.72 ml/min Normal 50-250 [facility] Comment on above: Performed By: #### L 501.9940, L500.4050, L100.0100 #### [facility] [address] [place], [address] GAP 11 Normal 5-15 [facility] Comment on above: Performed By: #### L 501.9940, L500.4050, L100.0100 #### [facility] [address] [place], [address] GFR/1.73 sq M.predicted among non-blacks MDRD (S/P/Bld) [Vol rate/Area] 100 mL/min/{1.73_m2} Normal >60 [facility] Comment on above: Result Comment: mL/m in/1.73m2 CKD-EPI Creatinine Equation (2020) Performed By: #### L 501.9940, L500.4050, L100.0100 #### [facility] [address] [place], [address] Globulin (S) [Mass/Vol] 2.6 g/dL Normal 2.2-4.2 [facility] Comment on above: Performed By: #### L 501.9940, L500.4050, L100.0100 #### [facility] [address] [place], [address] Glucose [Mass/Vol] 111 mg/dL High 70-99 [facility] Comment on above: Performed By: #### L 501.9940, L500.4050, L100.0100 #### [facility] [address] [place], [address] Potassium [Moles/Vol] 3.8 mmol/L Normal 3.3-5.1 [facility] Comment on above: Performed By: #### L 501.9940, L500.4050, L100.0100 #### [facility] [address] [place], [address] Sodium [Moles/Vol] 138 mmol/L Normal 133-145 [facility] Comment on above: Performed By: #### L 501.9940, L500.4050, L100.0100 #### [facility] [address] [place], [address] T PROT 6.6 g/dL Normal 5.9-8.4 [facility] Comment on above: Performed By: #### L 501.9940, L500.4050, L100.0100 #### [facility] [address] [place], [address] Urea nitrogen [Mass/Vol] 18 mg/dL Normal 4-19 [facility] Comment on above: Performed By: #### L 501.9940, L500.4050, L100.0100 #### [facility] [address] [place], [address] Oncology Visit Reporton 050 Oncology Visit Report [facility] [address] [place] [address] OFFICE VISIT Date of Service: 07/18/24 1354 MR#: [id number] Acct: [id number] Name: SAE KAPADIA Rep #: [id number] : 1960 From: Sally Bowman Age/Sex: 63/M Location: [facility] Status: Signed HPI Subjective Date of Service 07/18/24 Chief Complaint Prostate cancer on treatment History of Present Illness Patient is a 63-year-old gentleman, lopez, who noted a painless left groin mass in July 2017, thought to be a hernia for which September 13, 2017:???CT scan of the abdomen and pelvis??? revealed marked retroperitoneal, periaortic, and left iliac adenopathy with the largest lymph node mass measuring 5.6 cm in the lower periaortic/co mmon iliac chain, together with a CT scan of the chest on September 21 showed no visceral metastatic disease. September 21, 2017:???A CT-guided biopsy of retroperitoneal lymph nodes??? revealed metastatic adenocarcinoma PSA positive consistent with metastatic prostate cancer.?Cancer is microsatellite stable???( [facility] March 2020) October 2020 genetic testing at for a 47 gene panel showed no known pathogenic mutation, was a variant of uncertain significance. September 29, 2017:??? PSA >154. September 28, 2017:???A bone scan??? showed changes within the vertebral spine that were thought degenerative and inflammatory. He received a Lupron injection in September 2017 under the care of his urologist Dr. Jimenez, with Casodex cover in the first month then referred for a second opinion at where he was seen again by urologist Dr. Conn who informed him that his disease was non-operable, advised continued androgen deprivation therapy and consultation with medical oncology.??? He was also seen by radiation oncology at [facility] by Dr. Murray who advised medical management. December 26, 2017:???A follow-up??? bone scan??? showed interval progressive changes scattered throughout the axial and proximal appendicular skeleton in addition to several small new foci highly suspicious for progressive osseous metastatic disease. December 22, 2017:???PSA??? down to 20 and his testosterone level was consistent with a castrate level of 8. February 19, 2018:???Patient is transferring care to [facility] for proximity to his residence, PSA??? further down to 13July 31, 2018: Bone scan: IMPRESSION: 1.??? The increased radiopharmaceutical concentration identified in the third thoracic vertebra may be further investigated with plain film radiography in the setting of known prostate carcinoma if not previously obtained. ??? 2.??? Degenerative arthritis remains apparent in the thoracic and lumbar spine, sacrum, left hip, bilateral shoulders elbows bilaterally, left wrist, right-left knees and right ankle articulation. ??? 3.??? Overall compared to the previous whole body bone scintigraphy study dated 12/26/2017, the persistent increase in tracer uptake noted in the third thoracic vertebra warrants further evaluation with plain film radiography is not previously obtained. Otherwise, there is no significant interval change compared to the prior examination. February 2019 bone scan: IMPRESSION: 1.??? The increase in radiopharmaceutical concentration identified in the cervical thoracic and lumbar spine, both shoulders, sacrum, wrist and elbow articulations bilaterally, right and left hips, both knees is commensurate with degenerative arthritis. ???2.??? Overall compared to the previous whole body bone scintigraphy study dated 07/31/2018, there is no significant interval change.??? There is no present typical scintigraphic evidence of diffuse axial skeletal metastatic disease. October 17, 2019 bone scan: IMPRESSION: 1. The increase in radiopharmaceutical distribution currently defined in the cervical, thoracic and lumbar spine, sacrum, bilateral shoulders, left elbow, right-left knees, the right ankle and left wrist are commensurate with degenerative arthritis. 2.??? Overall compared to the previous whole body bone scintigraphy study dated 03/19/2019, there is no significant interval change.??? No current typical scintigraphic evidence of diffuse axial skeletal metastatic disease is demonstrated on the present examination. March 18, 2020 bone scan: IMPRESSION: 1.??? The increase in tracer distribution defined in the cervical, thoracic and lumbar spine, sacrum, right and left shoulders, knees bilaterally, both wrist articulations is commensurate with degenerative arthritis. 2.??? Overall compared to the previous whole body bone scintigraphy study dated 10/17/2019, there is no significant interval change.??? No current typical scintigraphic evidence of skeletal metastatic disease is demonstrated on the current examination. April 20, 2020 CT abdomen and pelvis: (more content not included)... Normal [facility] PSA,Total - Annual Screenon 07-18-2024 PSA,TOT SCREEN < 0.02 Low 0.02-4.00 [facility] Comment on above: Result Comment: This test was performed using the [employer] tPSA method. Measured values of a patient??sample can vary depending on the testing procedure used. PSA values determined on patient samples by different testing procedures cannot be used interchangeably. If there is a change in PSA assays while monitoring therapy, sequential testing should be performed to confirm baseline values. Performed By: #### L 501.9940, L500.4050, L100.0100 #### [facility] [address] [place], [address] CBC W/Diff, Automatedon 05-19 Absolute Lymph 1.22 X10 3/uL Normal 0.83-4.51 [facility] Comment on above: Performed By: #### L 500.4050, L501.9940, L100.0100 #### [facility] [address] [place], [address] Absolute Neut 2.1 X10 3/uL Normal 2.0-7.7 [facility] Comment on above: Performed By: #### L 500.4050, L501.9940, L100.0100 #### [facility] [address] [place], [address] Basophils/100 WBC (Bld) 0.5 % Normal 0-1 [facility] Comment on above: Performed By: #### L 500.4050, L501.9940, L100.0100 #### [facility] [address] [place], [address] Eosinophils/100 WBC (Bld) 5.4 % High 0-5 [facility] Comment on above: Performed By: #### L 500.4050, L501.9940, L100.0100 #### [facility] [address] [place], [address] Erythrocyte distribution width (RBC) [Ratio] 11.9 % Normal 11.6-14.6 [facility] Comment on above: Performed By: #### L 500.4050, L501.9940, L100.0100 #### [facility] [address] [place], [address] Hematocrit (Bld) [Volume fraction] 39.9 % Low 40-54 [facility] Comment on above: Performed By: #### L 500.4050, L501.9940, L100.0100 #### [facility] [address] [place], [address] Hemoglobin (Bld) [Mass/Vol] 14.0 g/dL Normal 13.0-16.5 [facility] Comment on above: Performed By: #### L 500.4050, L501.9940, L100.0100 #### [facility] [address] [place], [address] IG% 0.200 Normal 0.0-0.9 [facility] Comment on above: Result Comment: IG% - Immature Granulocytes (promyelocytes, myelocytes and metamyelocytes) > 1% indicates that a LEFT SHIFT is Present. Performed By: #### L 500.4050, L501.9940, L100.0100 #### [facility] [address] [place], [address] Lymphocytes/100 WBC (Bld) 29.9 % Normal 19-41 [facility] Comment on above: Performed By: #### L 500.4050, L501.9940, L100.0100 #### [facility] [address] [place], [address] MCH (RBC) [Entitic mass] 31.3 pg Normal 27.0-32.0 [facility] Comment on above: Performed By: #### L 500.4050, L501.9940, L100.0100 #### [facility] [address] [place], [address] MCHC (RBC) [Mass/Vol] 35.1 g/dL Normal 32-36 [facility] Comment on above: Performed By: #### L 500.4050, L501.9940, L100.0100 #### [facility] [address] [place], [address] MCV (RBC) [Entitic vol] 89.1 fL Normal 80-94 [facility] Comment on above: Performed By: #### L 500.4050, L501.9940, L100.0100 #### [facility] [address] [place], [address] Monocytes/100 WBC (Bld) 13.5 % High 0-10 [facility] Comment on above: Performed By: #### L 500.4050, L501.9940, L100.0100 #### [facility] [address] [place], [address] Neutrophils/100 WBC (Bld) 50.5 % Normal 47-70 [facility] Comment on above: Performed By: #### L 500.4050, L501.9940, L100.0100 #### [facility] [address] [place], [address] Nucleated RBC (Bld) [#/Vol] 0 10*3/uL Normal 0-5 [facility] Comment on above: Performed By: #### L 500.4050, L501.9940, L100.0100 #### [facility] [address] [place], [address] Platelet mean volume (Bld) [Entitic vol] 9.5 fL Normal 6.2-12.0 [facility] Comment on above: Performed By: #### L 500.4050, L501.9940, L100.0100 #### [facility] [address] [place], [address] Platelets (Bld) [#/Vol] 210 10*3/uL Normal 150-450 [facility] Comment on above: Performed By: #### L 500.4050, L501.9940, L100.0100 #### [facility] [address] [place], [address] RBC (Bld) [#/Vol] 4.48 10*6/uL Low 4.6-6.2 [facility] Comment on above: Performed By: #### L 500.4050, L501.9940, L100.0100 #### [facility] [address] [place], [address] RDW SD 39.0 fl Normal 35.1-43.9 [facility] Comment on above: Performed By: #### L 500.4050, L501.9940, L100.0100 #### [facility] [address] [place], [address] WBC (Bld) [#/Vol] 4.1 10*3/uL Low 4.4-11.0 [facility] Comment on above: Performed By: #### L 500.4050, L501.9940, L100.0100 #### [facility] [address] [place], [address] Comprehensive Metabolic Prof [facility] 06-06-2024 Albumin [Mass/Vol] 4.0 g/dL Normal 3.4-4.8 [facility] Comment on above: Performed By: #### L 500.4050, L501.9940, L100.0100 #### [facility] [address] [place], [address] Albumin/Globulin [Mass ratio] 1.6 {ratio} Normal 0.9-2.4 [facility] Comment on above: Performed By: #### L 500.4050, L501.9940, L100.0100 #### [facility] [address] [place], [address] ALK PHOS 51 U/L Normal 40-129 [facility] Comment on above: Performed By: #### L 500.4050, L501.9940, L100.0100 #### [facility] [address] [place], [address] ALT [Catalytic activity/Vol] 14 U/L Normal <=46 [facility] Comment on above: Performed By: #### L 500.4050, L501.9940, L100.0100 #### [facility] [address] [place], [address] AST [Catalytic activity/Vol] 23 U/L Normal <=37 [facility] Comment on above: Performed By: #### L 500.4050, L501.9940, L100.0100 #### [facility] [address] [place], [address] Bilirubin [Mass/Vol] 0.59 mg/dL Normal 0.00-1.30 [facility] Comment on above: Performed By: #### L 500.4050, L501.9940, L100.0100 #### [facility] [address] [place], [address] BUN/CRE 26.1 RATIO High 10-20 [facility] Comment on above: Performed By: #### L 500.4050, L501.9940, L100.0100 #### [facility] [address] [place], [address] Calcium [Mass/Vol] 9.3 mg/dL Normal 7.6-11.0 [facility] Comment on above: Performed By: #### L 500.4050, L501.9940, L100.0100 #### [facility] [address] [place], [address] Chloride [Moles/Vol] 103 mmol/L Normal 98-108 [facility] Comment on above: Performed By: #### L 500.4050, L501.9940, L100.0100 #### [facility] [address] [place], [address] CO2 [Moles/Vol] 21.7 mmol/L Normal 21.0-32.0 [facility] Comment on above: Performed By: #### L 500.4050, L501.9940, L100.0100 #### [facility] [address] [place], [address] Creatinine [Mass/Vol] 0.76 mg/dL Normal 0.70-1.20 [facility] Comment on above: Performed By: #### L 500.4050, L501.9940, L100.0100 #### [facility] [address] [place], [address] ECRCL 117.17 ml/min Normal 50-250 [facility] Comment on above: Performed By: #### L 500.4050, L501.9940, L100.0100 #### [facility] [address] [place], [address] GAP 12 Normal 5-15 [facility] Comment on above: Performed By: #### L 500.4050, L501.9940, L100.0100 #### [facility] [address] [place], [address] GFR/1.73 sq M.predicted among non-blacks MDRD (S/P/Bld) [Vol rate/Area] 102 mL/min/{1.73_m2} Normal >60 [facility] Comment on above: Result Comment: mL/m in/1.73m2 CKD-EPI Creatinine Equation (2021) Performed By: #### L 500.4050, L501.9940, L100.0100 #### [facility] [address] [place], [address] Globulin (S) [Mass/Vol] 2.4 g/dL Normal 2.2-4.2 [facility] Comment on above: Performed By: #### L 500.4050, L501.9940, L100.0100 #### [facility] [address] [place], [address] Glucose [Mass/Vol] 109 mg/dL High 70-99 [facility] Comment on above: Performed By: #### L 500.4050, L501.9940, L100.0100 #### [facility] [address] [place], [address] Potassium [Moles/Vol] 4.1 mmol/L Normal 3.3-5.1 [facility] Comment on above: Performed By: #### L 500.4050, L501.9940, L100.0100 #### [facility] [address] [place], [address] Sodium [Moles/Vol] 137 mmol/L Normal 133-145 [facility] Comment on above: Performed By: #### L 500.4050, L501.9940, L100.0100 #### [facility] [address] [place], [address] T PROT 6.5 g/dL Normal 5.9-8.4 [facility] Comment on above: Performed By: #### L 500.4050, L501.9940, L100.0100 #### [facility] [address] [place], [address] Urea nitrogen [Mass/Vol] 20 mg/dL High 4-19 [facility] Comment on above: Performed By: #### L 500.4050, L501.9940, L100.0100 #### [facility] [address] [place], [address] Oncology Visit Reporton 05-19 Oncology Visit Report [facility] [place] [facility] [address] [place] [address] OFFICE VISIT Date of Service: 06/06/24 1020 MR#: [id number] Acct: [id number] Name: SAE KAPADIA Rep #: [id number] : 1960 From: Sally San NP C D STILL OPERATOR -C Age/Sex: 63/M Location: [facility] Status: Signed HPI Subjective Date of Service 06/06/24 Chief Complaint Prostate cancer on treatment History of Present Illness Patient is a 63-year-old gentleman, lopez, who noted a painless left groin mass in July 2017, thought to be a hernia for which September 13, 2017:???CT scan of the abdomen and pelvis??? revealed marked retroperitoneal, periaortic, and left iliac adenopathy with the largest lymph node mass measuring 5.6 cm in the lower periaortic/co mmon iliac chain, together with a CT scan of the chest on September 21 showed no visceral metastatic disease. September 21, 2017:???A CT-guided biopsy of retroperitoneal lymph nodes??? revealed metastatic adenocarcinoma PSA positive consistent with metastatic prostate cancer.?Cancer is microsatellite stable???[facility] October 2020 genetic testing at for a 47 gene panel showed no known pathogenic mutation, was a variant of uncertain significance. September 29, 2017:??? PSA >154. September 28, 2017:???A bone scan??? showed changes within the vertebral spine that were thought degenerative and inflammatory. He received a Lupron injection in September 2017 under the care of his urologist Dr. Jimenez, with Casodex cover in the first month then referred for a second opinion at where he was seen again by urologist Dr. Conn who informed him that his disease was non-operable, advised continued androgen deprivation therapy and consultation with medical oncology.??? He was also seen by radiation oncology at [facility] by Dr. Murray who advised medical management. December 26, 2017:???A follow-up??? bone scan??? showed interval progressive changes scattered throughout the axial and proximal appendicular skeleton in addition to several small new foci highly suspicious for progressive osseous metastatic disease. December 22, 2017:???PSA??? down to 20 and his testosterone level was consistent with a castrate level of 8. February 19, 2018:???Patient is transferring care to [facility] for proximity to his residence, PSA??? further down to 13. July 31, 2018: Bone scan: IMPRESSION: 1.??? The increased radiopharmaceutical concentration identified in the third thoracic vertebra may be further investigated with plain film radiography in the setting of known prostate carcinoma if not previously obtained. ??? 2.??? Degenerative arthritis remains apparent in the thoracic and lumbar spine, sacrum, left hip, bilateral shoulders elbows bilaterally, left wrist, right-left knees and right ankle articulation. ??? 3.??? Overall compared to the previous whole body bone scintigraphy study dated 12/26/2017, the persistent increase in tracer uptake noted in the third thoracic vertebra warrants further evaluation with plain film radiography is not previously obtained. Otherwise, there is no significant interval change compared to the prior examination. February 2019 bone scan: IMPRESSION: 1.??? The increase in radiopharmaceutical concentration identified in the cervical thoracic and lumbar spine, both shoulders, sacrum, wrist and elbow articulations bilaterally, right and left hips, both knees is commensurate with degenerative arthritis. ???2.??? Overall compared to the previous whole body bone scintigraphy study dated 07/31/2018, there is no significant interval change.??? There is no present typical scintigraphic evidence of diffuse axial skeletal metastatic disease. October 17, 2019 bone scan: IMPRESSION: 1. The increase in radiopharmaceutical distribution currently defined in the cervical, thoracic and lumbar spine, sacrum, bilateral shoulders, left elbow, right-left knees, the right ankle and left wrist are commensurate with degenerative arthritis. 2.??? Overall compared to the previous whole body bone scintigraphy study dated 03/19/2019, there is no significant interval change.??? No current typical scintigraphic evidence of diffuse axial skeletal metastatic disease is demonstrated on the present examination. March 18, 2020 bone scan: IMPRESSION: 1.??? The increase in tracer distribution defined in the cervical, thoracic and lumbar spine, sacrum, right and left shoulders, knees bilaterally, both wrist articulations is commensurate with degenerative arthritis. 2.??? Overall compared to the previous whole body bone scintigraphy study dated 10/17/2019, there is no significant interval change.??? No current typical scintigraphic evidence of skeletal metastatic disease is demonstrated on the current examination. April 20, 2020 CT abdomen and pelvis: (more content not included)... Normal [facility] PSA,Total- Diagnosticon 05-19 PSA, DIAGNOSTIC < 0.02 Normal 0.00-4.00 [facility] Comment on above: Result Comment: This test was performed using the [employer] tPSA method. Measured values of a patient??sample can vary depending on the testing procedure used. PSA values determined on patient samples by different testing procedures cannot be used interchangeably. If there is a change in PSA assays while monitoring therapy, sequential testing should be performed to confirm baseline values. Performed By: #### L 500.4050, L501.9940, L100.0100 #### [facility] [address] [place], [address] L Inj/Asp: bilateral kneeon 05-21-2024 Kaiser Leal MD 05/21 1:04 PM L Inj/Asp: bilateral knee on 05/21/2024 1:04 PM Details: ultrasound-guided superolateral approach Medications (Right): 40 mg triamcinolone acetonide 40 mg/mL Medications (Left): 40 mg triamcinolone acetonide 40 mg/mL Procedure, treatment alternatives, risks and benefits explained, specific risks discussed. Immediately prior to procedure a time out was called to verify the correct patient, procedure, equipment, service support representative and site/side marked as required. Patient was prepped and draped in the usual sterile fashion. [facility] Work Phone: [facility] Work Phone: POINT OF CARE ULTRASOUND NO CHARGEon 05-21-2024 POINT OF CARE ULTRASOUND NO CHARGE These images are not reportable by radiology and will not be interpreted by Radiologists. Normal [facility] US Abdomenon 05-21-2024 These images are not reportable by radiology and will not be interpreted by Radiologists. IMAGING XR KNEE 4+ VIEWS BILATERALon 05-21-2024 XR KNEE 4+ VIEWS BILATERAL Interpreted By: Fracisco Sutton, STUDY: XR KNEE 4+ VIEWS BILATERAL; 05/21/2024 7:52 am INDICATION: Signs/Symptoms:PRIMARY OSTEARTHRITIS OF BOTH KNEES. COMPARISON: 12/01/2023 ACCESSION NUMBER(S): [id number] ORDERING CLINICIAN: KAISER LEAL TECHNIQUE: Bilateral knees, four views each FINDINGS: No fractures or destructive lesions are identified. Right knee : *There is narrowing of the medial aspect of the tibiofemoral joint space with medial tibiofemoral marginal spurring on the right. There is also medial and lateral patellofemoral marginal spurring on the sunrise view. No effusion is identified. Left knee : *There is marked narrowing of the medial aspect of the tibiofemoral joint space of the left knee with medial tibiofemoral marginal spurring. There is medial and lateral patellofemoral marginal spurring on the left. No joint effusion is identified. An intramedullary neel is partially visualized within the distal femur. IMPRESSION: No acute pathologic findings are identified. Bilateral tibiofemoral osteoarthritis predominantly involving the medial compartment, more marked on the left. Bilateral patellofemoral osteoarthritis. MACRO: none Signed by: Fracisco Sutton 05/22/2024 9:23 AM Dictation workstation: [id number] [facility] CBC (INCLUDES DIFF/PLT)on Basophils (Bld) [#/Vol] 0.031 10*3/uL Normal 0-200 [facility] Comment on above: Performed By: #### 7 600, 8602, 24301, 86716 #### [facility] [address], [address] [place] [id number] Operations Officer [employer]: Og Andrade MD Basophils/100 WBC (Bld) 0.7 % Normal [facility] Comment on above: Performed By: #### 7 600, 6399, 58623, 46931 #### [facility] [address], [address] [place] [address] Operations Officer [employer]: Og Andrade MD Eosinophils (Bld) [#/Vol] 0.242 10*3/uL Normal 15-500 [facility] Comment on above: Performed By: #### 7 600, 6399, 40179, 90652 #### [facility] of [address], [address] [place] [address] Operations Officer [employer]: Og Andrade MD Eosinophils/100 WBC (Bld) 5.5 % Normal [facility] Comment on above: Performed By: #### 7 600, 6399, , 31074 #### [facility] of [address], [address] [place] [address] Operations Officer [employer]: Og Andrade MD Erythrocyte distribution width (RBC) [Ratio] 12.3 % Normal 11.0-15.0 [facility] Comment on above: Performed By: #### 7 600, 6399, , 28109 #### [facility] of [address], [address] [place] [address] Operations Officer [employer]: Og Andrade MD Hematocrit (Bld) [Volume fraction] 44.4 % Normal 38.5-50.0 [facility] Comment on above: Performed By: #### 7 600, 6399, 66130, 60386 #### [facility] of [address], [address] [place] [address] Operations Officer [employer]: Og Andrade MD Hemoglobin (Bld) [Mass/Vol] 14.8 g/dL Normal 13.2-17.1 [facility] Comment on above: Performed By: #### 7 600, 6399, 49798, 24765 #### [facility] of [address], [address] [place] [address] Operations Officer [employer]: Og Andrade MD Lymphocytes (Bld) [#/Vol] 1.487 10*3/uL Normal 850-3900 [facility] Comment on above: Performed By: #### 7 600, 6399, 94860, 98521 #### [facility] of [place] [address] Operations Officer [employer]: Og Andrade MD Lymphocytes/100 WBC (Bld) 33.8 % Normal [facility] Comment on above: Performed By: #### 7 600, 63, , 54627 #### [facility] of [place] [address] Operations Officer [employer]: Og Andrade MD MCH (RBC) [Entitic mass] 31.1 pg Normal 27.0-33.0 [facility] Comment on above: Performed By: #### 7 600, 63, , 46312 #### [facility] [place] [address] Operations Officer [employer]: Og Andrade MD MCHC (RBC) [Mass/Vol] 33.3 g/dL Normal 32.0-36.[address] [facility] Comment on above: Result Comment: For adults, a slight decrease in the calculated MCHC value (in the range of 30 to 32 g/dL) is most likely not clinically significant; however, it should be interpreted with caution in correlation with other red cell parameters and the patient's clinical condition. Performed By: #### 7 600, 36, , 59075 #### [facility] of [place] [address] Operations Officer [employer]: Og Andrade MD MCV (RBC) [Entitic vol] 93.3 fL Normal 80.0-100.0 [facility] Comment on above: Performed By: #### 7 600, 91, , 88617 #### [facility] [place] [address] Operations Officer [employer]: Og Andrade MD Monocytes (Bld) [#/Vol] 0.563 10*3/uL Normal 200-950 [facility] Comment on above: Performed By: #### 7 600, 63, , 37935 #### [facility] of [place] [address] Operations Officer [employer]: Og Andrade MD Monocytes/100 WBC (Bld) 12.8 % Normal [facility] Comment on above: Performed By: #### 7 600, 63, , 75435 #### [facility] of [address], [address] [place] [address] Operations Officer [employer]: Og Andrade MD Neutrophils (Bld) [#/Vol] 2.077 10*3/uL Normal 6757-1364 [facility] Comment on above: Performed By: #### 7 600, 63, , 49069 #### [facility] of [address], [address] [place] [address] Operations Officer [employer]: Og Andrade MD Neutrophils/100 WBC (Bld) 47.2 % Normal [facility] Comment on above: Performed By: #### 7 600, 63, , 68752 #### [facility] of [place] [address] Operations Officer [employer]: Og Andrade MD Platelet mean volume (Bld) [Entitic vol] 9.6 fL Normal 7.5-12.5 [facility] Comment on above: Performed By: #### 7 600, 6398, , 44454 #### [facility] [place] [address] Operations Officer [employer]: Og Andrade MD Platelets (Bld) [#/Vol] 249 10*3/uL Normal 140-400 [facility] Comment on above: Performed By: #### 7 600, 63, , 72468 #### [facility] of [address], [address] [place] [address] Operations Officer [employer]: Og Andrade MD RBC (Bld) [#/Vol] 4.76 10*6/uL Normal 4.20-5.80 [facility] Comment on above: Performed By: #### 7 600, 63, , 93350 #### [facility] of [address], [address] [place] [address] Operations Officer [employer]: Og Andrade MD WBC (Bld) [#/Vol] 4.4 10*3/uL Normal 3.8-10.8 [facility] Comment on above: Performed By: #### 7 600, 6399, 17431, 78835 #### [facility] of [address], [address] [place] [address] Operations Officer [employer]: Og Andrade MD COMPREHENSIVE METABOLIC PANE L W/ANION GAPon 05-15-2024 Albumin [Mass/Vol] 4.6 g/dL Normal 3.6-5.1 [facility] Comment on above: Performed By: #### 7 600, 6399, , 84702 #### [facility] [place] [address] Operations Officer [employer]: Og Andrade MD ALP [Catalytic activity/Vol] 42 U/L Normal 35-144 [facility] Comment on above: Performed By: #### 7 600, 63, , 73957 #### [facility] of [address], [address] [place] [address] Operations Officer [employer]: Og Andrade MD ALT [Catalytic activity/Vol] 11 U/L Normal 9-46 [facility] Comment on above: Performed By: #### 7 600, 6399, 41541, 17934 #### [facility] [place] [address] Operations Officer [employer]: Og Andrade MD AST [Catalytic activity/Vol] 18 U/L Normal 10-35 [facility] Comment on above: Performed By: #### 7 600, 6399, , 72736 #### [facility] of [address], [address] [place] [address] Operations Officer [employer]: Og Andrade MD Bilirubin [Mass/Vol] 0.5 mg/dL Normal 0.2-1.2 [facility] Comment on above: Performed By: #### 7 600, 63, 63385, 26484 #### [facility] of [address], [address] [place] [address] Operations Officer [employer]: Og Andrade MD Calcium [Mass/Vol] 9.9 mg/dL Normal 8.6-10.3 [facility] Comment on above: Performed By: #### 7 600, 63, 76963, 58322 #### [facility] of [address], [address] [place], [place] [id number] Operations Officer [employer]: Og Andrade MD Chloride [Moles/Vol] 103 mmol/L Normal 98-110 [facility] Comment on above: Performed By: #### 7 600, 63, , 81283 #### [facility] of [address], [address] [place] [address] Operations Officer [employer]: Og Andrade MD CO2 [Moles/Vol] 29 mmol/L Normal 20-32 [facility] Comment on above: Performed By: #### 7 600, 6398, , 89178 #### [facility] of [place] [address] Operations Officer [employer]: Og Andrade MD Creatinine [Mass/Vol] 0.72 mg/dL Normal 0.70-1.[address] [facility] Comment on above: Performed By: #### 7 600, 63, 35605, 52524 #### [facility] [place] [address] Operations Officer [employer]: Og Andrade MD ELECTROLYTE BALANCE 7 mmol/L (calc) Normal 7-17 [facility] Comment on above: Performed By: #### 7 600, 63, 10444, 77973 #### [facility] of [address] Operations Officer [employer]: Og Andrade MD GFR/1.73 sq M.predicted among non-blacks MDRD (S/P/Bld) [Vol rate/Area] 103 mL/min/{1.73_m2} Normal > OR = 60 [facility] Comment on above: Performed By: #### 7 600, 63, 71912, 02183 #### [facility] of [address] Operations Officer [employer]: Og Andrade MD Glucose [Mass/Vol] 96 mg/dL Normal 65-99 [facility] Comment on above: Result Comment: Fasting reference interval Performed By: #### 7 600, 6399, 08229, 20673 #### [facility] of [address], [address] [place] [address] Operations Officer [employer]: Og Andrade MD Potassium [Moles/Vol] 4.4 mmol/L Normal 3.5-5.[address] [facility] Comment on above: Performed By: #### 7 600, 6399, , 83689 #### [facility] of [address], [address] [place] [address] Operations Officer [employer]: Og Andrade MD Protein [Mass/Vol] 6.9 g/dL Normal 6.1-8.1 [facility] Comment on above: Performed By: #### 7 600, 63, , 92364 #### [facility] of [address], [address] [place] [address] Operations Officer Afloat: Og Andrade MD Sodium [Moles/Vol] 139 mmol/L Normal 135-146 [facility] Comment on above: Performed By: #### 7 600, 63, , 16092 #### [facility] of [address], [address] [place] [address] Operations Officer Afloat: Og Andrade MD Urea nitrogen [Mass/Vol] 24 mg/dL Normal 7-25 [facility] Comment on above: Performed By: #### 7 600, 63, , 15524 #### [facility] [address], [address] [place] [address] Operations Officer Afloat: Og Andrade MD LIPID PANEL, STANDARD 04-21 Cholesterol [Mass/Vol] 179 mg/dL Normal <200 [facility] Comment on above: Performed By: #### 7 600, 63, 99725, 80438 #### [facility] of [address], [address] [place] [address] Operations Officer Afloat: Og Andrade MD Cholesterol in HDL [Mass/Vol] 65 mg/dL Normal > OR = 40 [facility] Comment on above: Performed By: #### 7 600, 4999, 78872, 34247 #### [facility] [address], [address] [place] [address] Operations Officer Afloat: Og Andrade MD Cholesterol in LDL [Mass/Vol] 95 mg/dL Normal [facility] Comment on above: Result Comment: Refe rence range: <100 Desirable range <100 mg/dL for primary prevention; <70 mg/dL for patients with CHD or diabetic patients with > or = 2 CHD risk factors. LDL-C is now calculated using the Tiffanie calculation, which is a validated novel method providing better accuracy than the Friedewald equation in the estimation of LDL-C. Jonel MACIAS et al. ROGELIO. 2013;310(19): 8049-4586 (http://education.Qinqin.com.Odersun/faq/KWH764) Performed By: #### 7 600, 7621, 25453, 48284 #### [facility] [address], [address] [place] [address] Operations Officer Afloat: Og Andrade MD Cholesterol.total/Chol esterol in HDL [Mass ratio] 2.8 {ratio} Normal <5.0 [facility] Comment on above: Performed By: #### 7 600, 6396, 62009, 30727 #### [facility] [address], [address] [place] [address] Operations Officer Afloat: Og Andrade MD NON HDL CHOLESTEROL 114 mg/dL (calc) Normal <130 [facility] Comment on above: Result Comment: For patients with diabetes plus 1 major ASCVD risk factor, treating to a non-HDL-C goal of <100 mg/dL (LDL-C of <70 mg/dL) is considered a therapeutic option. Performed By: #### 7 600, 0459, 12900, 92843 #### [facility] [address], [address] [place] [address] Operations Officer Afloat: Og Andrade MD Triglyceride [Mass/Vol] 101 mg/dL Normal <150 [facility] Comment on above: Performed By: #### 7 600, 6399, 41356, 44735 #### [facility] [address] [place] [address], [address] [place] [phone] Operations Officer [employer]float: Og Andrade MD TSH W/REFLEX TO FT4on 2024 TSH W/REFLEX TO FT4 3.75 mIU/L Normal 0.40-4.50 [facility] Comment on above: Performed By: #### 7 600, 6399, 81580, 08098 #### [facility] [address] [facility], [address] [place] [phone] Operations Officer [employer]: Og Andrade MD CBC W/Diff, Automatedon 04-20 Absolute Lymph 1.61 X10 3/uL Normal 0.83-4.51 [facility] Comment on above: Performed By: #### L 500.4050, L501.9940, L100.0100 #### [facility] [address] [place], [address] Absolute Neut 2.5 X10 3/uL Normal 2.0-7.7 [facility] Comment on above: Performed By: #### L 500.4050, L501.9940, L100.0100 #### [facility] [address] [place], [address] Basophils/100 WBC (Bld) 0.6 % Normal 0-1 [facility] Comment on above: Performed By: #### L 500.4050, L501.9940, L100.0100 #### [facility] [address] [place], [address] Eosinophils/100 WBC (Bld) 3.5 % Normal 0-5 [facility] Comment on above: Performed By: #### L 500.4050, L501.9940, L100.0100 #### [facility] [address] [place], [address] Erythrocyte distribution width (RBC) [Ratio] 11.9 % Normal 11.6-14.6 [facility] Comment on above: Performed By: #### L 500.4050, L501.9940, L100.0100 #### [facility] [address] [place], [address] Hematocrit (Bld) [Volume fraction] 39.9 % Low 40-54 [facility] Comment on above: Performed By: #### L 500.4050, L501.9940, L100.0100 #### [facility] [address] [place], [address] Hemoglobin (Bld) [Mass/Vol] 13.7 g/dL Normal 13.0-16.5 [facility] Comment on above: Performed By: #### L 500.4050, L501.9940, L100.0100 #### [facility] [address] [place], [address] IG% 0.400 Normal 0.0-0.9 [facility] Comment on above: Result Comment: IG% - Immature Granulocytes (promyelocytes, myelocytes and metamyelocytes) > 1% indicates that a LEFT SHIFT is Present. Performed By: #### L 500.4050, L501.9940, L100.0100 #### [facility] [address] [place], [address] Lymphocytes/100 WBC (Bld) 32.7 % Normal 19-41 [facility] Comment on above: Performed By: #### L 500.4050, L501.9940, L100.0100 #### [facility] [address] [place], [address] MCH (RBC) [Entitic mass] 30.7 pg Normal 27.0-32.0 [facility] Comment on above: Performed By: #### L 500.4050, L501.9940, L100.0100 #### [facility] [address] [place], [address] MCHC (RBC) [Mass/Vol] 34.3 g/dL Normal 32-36 [facility] Comment on above: Performed By: #### L 500.4050, L501.9940, L100.0100 #### [facility] [address] [place], [address] MCV (RBC) [Entitic vol] 89.5 fL Normal 80-94 [facility] Comment on above: Performed By: #### L 500.4050, L501.9940, L100.0100 #### [facility] [address] [place], [address] Monocytes/100 WBC (Bld) 11.2 % High 0-10 [facility] Comment on above: Performed By: #### L 500.4050, L501.9940, L100.0100 #### [facility] [address] [place], [address] Neutrophils/100 WBC (Bld) 51.6 % Normal 47-70 [facility] Comment on above: Performed By: #### L 500.4050, L501.9940, L100.0100 #### [facility] [address] [place], [address] Nucleated RBC (Bld) [#/Vol] 0 10*3/uL Normal 0-5 [facility] Comment on above: Performed By: #### L 500.4050, L501.9940, L100.0100 #### [facility] [address] [place], [address] Platelet mean volume (Bld) [Entitic vol] 9.3 fL Normal 6.2-12.0 [facility] Comment on above: Performed By: #### L 500.4050, L501.9940, L100.0100 #### [facility] [address] [place], [address] Platelets (Bld) [#/Vol] 225 10*3/uL Normal 150-450 [facility] Comment on above: Performed By: #### L 500.4050, L501.9940, L100.0100 #### [facility] [address] [place], [address] RBC (Bld) [#/Vol] 4.46 10*6/uL Low 4.6-6.2 [facility] Comment on above: Performed By: #### L 500.4050, L501.9940, L100.0100 #### [facility] [address] [place], [address] RDW SD 39.3 fl Normal 35.1-43.9 [facility] Comment on above: Performed By: #### L 500.4050, L501.9940, L100.0100 #### [facility] [address] [place], [address] WBC (Bld) [#/Vol] 4.9 10*3/uL Normal 4.4-11.0 [facility] Comment on above: Performed By: #### L 500.4050, L501.9940, L100.0100 #### [facility] [address] [place], [address] Comprehensive Metabolic Prof coon 05-01-2024 Albumin [Mass/Vol] 3.8 g/dL Normal 3.2-5.0 [facility] Comment on above: Performed By: #### L 500.4050, L501.9940, L100.0100 #### [facility] [address] [place], [address] Albumin/Globulin [Mass ratio] 1.2 {ratio} Normal 0.9-2.4 [facility] Comment on above: Performed By: #### L 500.4050, L501.9940, L100.0100 #### [facility] [address] [place], [address] ALK P 45 U/L Normal 45-117 [facility] Comment on above: Performed By: #### L 500.4050, L501.9940, L100.0100 #### [facility] [address] [place], [address] ALT [Catalytic activity/Vol] 25 U/L Normal 16-61 [facility] Comment on above: Performed By: #### L 500.4050, L501.9940, L100.0100 #### [facility] [address] [place], [address] AST [Catalytic activity/Vol] 24 U/L Normal 15-37 [facility] Comment on above: Performed By: #### L 500.4050, L501.9940, L100.0100 #### [facility] [address] [place], [address] Bilirubin [Mass/Vol] 0.50 mg/dL Normal 0.20-1.00 [facility] Comment on above: Result Comment: For patients on eltrombopag therapy, use of Dimension Norman TBIL is not recommended. Performed By: #### L 500.4050, L501.9940, L100.0100 #### [facility] [address] [place], [address] BUN/CRE 32.2 RATIO High 10-20 [facility] Comment on above: Performed By: #### L 500.4050, L501.9940, L100.0100 #### [facility] [address] [place], [address] CA,Total 9.3 mg/dL Normal 8.5-10.1 [facility] Comment on above: Performed By: #### L 500.4050, L501.9940, L100.0100 #### [facility] [address] [place], [address] Chloride [Moles/Vol] 104 mmol/L Normal 98-107 [facility] Comment on above: Performed By: #### L 500.4050, L501.9940, L100.0100 #### [facility] [address] [place], [address] CO2 [Moles/Vol] 28.0 mmol/L Normal 21.0-32.0 [facility] Comment on above: Performed By: #### L 500.4050, L501.9940, L100.0100 #### [facility] [address] [place], [address] Creatinine [Mass/Vol] 0.78 mg/dL Normal 0.70-1.30 [facility] Comment on above: Result Comment: The validity of the calculated GFR GFRAA in patients over 70 years has not been determined. Clinical correlation is essential. Performed By: #### L 500.4050, L501.9940, L100.0100 #### [facility] [address] [place], [address] ECRCL 114.17 ml/min Normal [facility] Comment on above: Performed By: #### L 500.4050, L501.9940, L100.0100 #### [facility] [address] [place], [address] EST GFR - AA 130 mL/min Normal >60 [facility] Comment on above: Result Comment: Afri can Tristanian GFR Calc Performed By: #### L 500.4050, L501.9940, L100.0100 #### [facility] [address] [place], [address] GAP 6 Normal 5-15 [facility] Comment on above: Performed By: #### L 500.4050, L501.9940, L100.0100 #### [facility] [address] [place], [address] GFR/1.73 sq M.predicted among non-blacks MDRD (S/P/Bld) [Vol rate/Area] 108 mL/min/{1.73_m2} Normal >60 [facility] Comment on above: Result Comment: Non- GFR Calc Performed By: #### L 500.4050, L501.9940, L100.0100 #### [facility] [address] [place], [address] Globulin (S) [Mass/Vol] 3.2 g/dL Normal 2.2-4.2 [facility] Comment on above: Performed By: #### L 500.4050, L501.9940, L100.0100 #### [facility] [address] [place], [address] Glucose [Mass/Vol] 115 mg/dL High 74-106 [facility] Comment on above: Result Comment: Fast ing Glucose result from 100 to 125 mg/dL suggests IMPAIRED HOMEOSTASIS per A.D.A. criteria. Performed By: #### L 500.4050, L501.9940, L100.0100 #### [facility] [address] [place], [address] Potassium [Moles/Vol] 3.7 mmol/L Normal 3.5-5.1 [facility] Comment on above: Performed By: #### L 500.4050, L501.9940, L100.0100 #### [facility] [address] [place], [address] Sodium [Moles/Vol] 137 mmol/L Normal 136-145 [facility] Comment on above: Performed By: #### L 500.4050, L501.9940, L100.0100 #### [facility] [address] [place], [address] T PROT 7.0 g/dL Normal 6.4-8.2 [facility] Comment on above: Performed By: #### L 500.4050, L501.9940, L100.0100 #### [facility] [address] [place], [address] Urea nitrogen [Mass/Vol] 25 mg/dL High 7-18 [facility] Comment on above: Performed By: #### L 500.4050, L501.9940, L100.0100 #### [facility] [address] [place], [address] Oncology Visit Reporton 04-20 Oncology Visit Report [facility] [place] [facility] [address] [place] [address] OFFICE VISIT Date of Service: 05/01/24 1312 MR#: [id number] Acct: [id number] Name: ASE KAPADIA Rep #: [id number] : 1960 From: Sally San NP C D STILL OPERATOR -C Age/Sex: 63/M Location: [facility] Status: Signed HPI Subjective Date of Service 05/01/24 Chief Complaint Prostate cancer on treatment History of Present Illness Patient is a 63-year-old gentleman, olpez, who noted a painless left groin mass in July 2017, thought to be a hernia for which September 13, 2017:???CT scan of the abdomen and pelvis??? revealed marked retroperitoneal, periaortic, and left iliac adenopathy with the largest lymph node mass measuring 5.6 cm in the lower periaortic/co mmon iliac chain, together with a CT scan of the chest on September 21 showed no visceral metastatic disease. September 21, 2017:???A CT-guided biopsy of retroperitoneal lymph nodes??? revealed metastatic adenocarcinoma PSA positive consistent with metastatic prostate cancer.?Cancer is microsatellite stable[facility] October 2020 genetic testing at for a 47 gene panel showed no known pathogenic mutation, was a variant of uncertain significance. September 29, 2017:??? PSA >154. September 28, 2017:???A bone scan??? showed changes within the vertebral spine that were thought degenerative and inflammatory. He received a Lupron injection in September 2017 under the care of his urologist Dr. Jimenez, with Casodex cover in the first month then referred for a second opinion at where he was seen again by urologist Dr. Conn who informed him that his disease was non-operable, advised continued androgen deprivation therapy and consultation with medical oncology.??? He was also seen by radiation oncology at [facility] by Dr. Murray who advised medical management. December 26, 2017:???A follow-up??? bone scan??? showed interval progressive changes scattered throughout the axial and proximal appendicular skeleton in addition to several small new foci highly suspicious for progressive osseous metastatic disease. December 22, 2017:???PSA??? down to 20 and his testosterone level was consistent with a castrate level of 8. February 19, 2018:???Patient is transferring care to [facility] for proximity to his residence, PSA??? further down to 13. July 31, 2018: Bone scan: IMPRESSION: 1.??? The increased radiopharmaceutical concentration identified in the third thoracic vertebra may be further investigated with plain film radiography in the setting of known prostate carcinoma if not previously obtained. ??? 2.??? Degenerative arthritis remains apparent in the thoracic and lumbar spine, sacrum, left hip, bilateral shoulders elbows bilaterally, left wrist, right-left knees and right ankle articulation. ??? 3.??? Overall compared to the previous whole body bone scintigraphy study dated 12/26/2017, the persistent increase in tracer uptake noted in the third thoracic vertebra warrants further evaluation with plain film radiography is not previously obtained. Otherwise, there is no significant interval change compared to the prior examination. February 2019 bone scan: IMPRESSION: 1.??? The increase in radiopharmaceutical concentration identified in the cervical thoracic and lumbar spine, both shoulders, sacrum, wrist and elbow articulations bilaterally, right and left hips, both knees is commensurate with degenerative arthritis. ???2.??? Overall compared to the previous whole body bone scintigraphy study dated 07/31/2018, there is no significant interval change.??? There is no present typical scintigraphic evidence of diffuse axial skeletal metastatic disease. October 17, 2019 bone scan: IMPRESSION: 1. The increase in radiopharmaceutical distribution currently defined in the cervical, thoracic and lumbar spine, sacrum, bilateral shoulders, left elbow, right-left knees, the right ankle and left wrist are commensurate with degenerative arthritis. 2.??? Overall compared to the previous whole body bone scintigraphy study dated 03/19/2019, there is no significant interval change.??? No current typical scintigraphic evidence of diffuse axial skeletal metastatic disease is demonstrated on the present examination. March 18, 2020 bone scan: IMPRESSION: 1.??? The increase in tracer distribution defined in the cervical, thoracic and lumbar spine, sacrum, right and left shoulders, knees bilaterally, both wrist articulations is commensurate with degenerative arthritis. 2.??? Overall compared to the previous whole body bone scintigraphy study dated 10/17/2019, there is no significant interval change.??? No current typical scintigraphic evidence of skeletal metastatic disease is demonstrated on the current examination. April 20, 2020 CT abdomen and pelvis: (more content not included)... Normal [facility] PSA,Total- Diagnosticon 04-20 PSA, DIAGNOSTIC < 0.01 Normal 0.0-4.0 [facility] Comment on above: Result Comment: This test was performed using the TPSA assay method for the [employer] chemistry system. Values obtained with different assay methods cannot be used interchangably. When changing PSA assays in the course of monitoring a patient, additional sequential testing should be carried out to confirm baseline values. Performed By: #### L 500.4050, L501.9940, L100.0100 #### [facility] [address] [facility] [place], [address] Oncology Visit Reporton Oncology Visit Report [facility] [place] [facility] [address] [place] [address] OFFICE VISIT Date of Service: 03/27/24 1436 MR#: [id number] Acct: [id number] Name: SAE KAPADIA Rep #: [id number] : 1960 From: Sally San NP C D STILL OPERATOR -C Age/Sex: 63/M Location: [facility] Status: Signed HPI Subjective Date of Service 03/27/24 Chief Complaint Prostate cancer on treatment History of Present Illness Patient is a 63-year-old gentleman, lopez, who noted a painless left groin mass in July 2017, thought to be a hernia for which September 13, 2017:???CT scan of the abdomen and pelvis??? revealed marked retroperitoneal, periaortic, and left iliac adenopathy with the largest lymph node mass measuring 5.6 cm in the lower periaortic/co mmon iliac chain, together with a CT scan of the chest on September 21 showed no visceral metastatic disease. September 21, 2017:???A CT-guided biopsy of retroperitoneal lymph nodes??? revealed metastatic adenocarcinoma PSA positive consistent with metastatic prostate cancer.?Cancer is microsatellite stable???([facility] pathology March 2020) October 2020 genetic testing at for a 47 gene panel showed no known pathogenic mutation, was a variant of uncertain significance. September 29, 2017:??? PSA >154. September 28, 2017:???A bone scan??? showed changes within the vertebral spine that were thought degenerative and inflammatory. He received a Lupron injection in September 2017 under the care of his urologist Dr. Jimenez, with Casodex cover in the first month then referred for a second opinion at where he was seen again by urologist Dr. Conn who informed him that his disease was non-operable, advised continued androgen deprivation therapy and consultation with medical oncology.??? He was also seen by radiation oncology at [facility] by Dr. Murray who advised medical management. December 26, 2017:???A follow-up??? bone scan??? showed interval progressive changes scattered throughout the axial and proximal appendicular skeleton in addition to several small new foci highly suspicious for progressive osseous metastatic disease. December 22, 2017:???PSA??? down to 20 and his testosterone level was consistent with a castrate level of 8. February 19, 2018:???Patient is transferring care to [facility] for proximity to his residence, PSA??? further down to 13. July 31, 2018: Bone scan: IMPRESSION: 1.??? The increased radiopharmaceutical concentration identified in the third thoracic vertebra may be further investigated with plain film radiography in the setting of known prostate carcinoma if not previously obtained. ??? 2.??? Degenerative arthritis remains apparent in the thoracic and lumbar spine, sacrum, left hip, bilateral shoulders elbows bilaterally, left wrist, right-left knees and right ankle articulation. ??? 3.??? Overall compared to the previous whole body bone scintigraphy study dated 12/26/2017, the persistent increase in tracer uptake noted in the third thoracic vertebra warrants further evaluation with plain film radiography is not previously obtained. Otherwise, there is no significant interval change compared to the prior examination. February 2019 bone scan: IMPRESSION: 1.??? The increase in radiopharmaceutical concentration identified in the cervical thoracic and lumbar spine, both shoulders, sacrum, wrist and elbow articulations bilaterally, right and left hips, both knees is commensurate with degenerative arthritis. ???2.??? Overall compared to the previous whole body bone scintigraphy study dated 07/31/2018, there is no significant interval change.??? There is no present typical scintigraphic evidence of diffuse axial skeletal metastatic disease. October 17, 2019 bone scan: IMPRESSION: 1. The increase in radiopharmaceutical distribution currently defined in the cervical, thoracic and lumbar spine, sacrum, bilateral shoulders, left elbow, right-left knees, the right ankle and left wrist are commensurate with degenerative arthritis. 2.??? Overall compared to the previous whole body bone scintigraphy study dated 03/19/2019, there is no significant interval change.??? No current typical scintigraphic evidence of diffuse axial skeletal metastatic disease is demonstrated on the present examination. March 18, 2020 bone scan: IMPRESSION: 1.??? The increase in tracer distribution defined in the cervical, thoracic and lumbar spine, sacrum, right and left shoulders, knees bilaterally, both wrist articulations is commensurate with degenerative arthritis. 2.??? Overall compared to the previous whole body bone scintigraphy study dated 10/17/2019, there is no significant interval change.??? No current typical scintigraphic evidence of skeletal metastatic disease is demonstrated on the current examination. April 20, 2020 CT abdomen and pelvis: (more content not included)... Normal [facility] CBC W/Diff, Automatedon 01-0 7-2025 Absolute Lymph 1.62 X10 3/uL Normal 0.83-4.51 [facility] Comment on above: Performed By: #### L 501.9940, L500.4050, L100.0100 #### [facility] [address] [place], [address] Absolute Neut 2.0 X10 3/uL Normal 2.0-7.7 [facility] Comment on above: Performed By: #### L 501.9940, L500.4050, L100.0100 #### [facility] [address] [place], [address] Basophils/100 WBC (Bld) 0.5 % Normal 0-1 [facility] Comment on above: Performed By: #### L 501.9940, L500.4050, L100.0100 #### [facility] [address] [place], [address] Eosinophils/100 WBC (Bld) 4.8 % Normal 0-5 [facility] Comment on above: Performed By: #### L 501.9940, L500.4050, L100.0100 #### [facility] [address] [place], [address] Erythrocyte distribution width (RBC) [Ratio] 12.2 % Normal 11.6-14.6 [facility] Comment on above: Performed By: #### L 501.9940, L500.4050, L100.0100 #### [facility] [address] [place], [address] Hematocrit (Bld) [Volume fraction] 41.2 % Normal 40-54 [facility] Comment on above: Performed By: #### L 501.9940, L500.4050, L100.0100 #### [facility] [address] [place], [address] Hemoglobin (Bld) [Mass/Vol] 14.1 g/dL Normal 13.0-16.5 [facility] Comment on above: Performed By: #### L 501.9940, L500.4050, L100.0100 #### [facility] [address] [place], [address] IG% 0.500 Normal 0.0-0.9 [facility] Comment on above: Result Comment: IG% - Immature Granulocytes (promyelocytes, myelocytes and metamyelocytes) > 1% indicates that a LEFT SHIFT is Present. Performed By: #### L 501.9940, L500.4050, L100.0100 #### [facility] [address] [place], [address] Lymphocytes/100 WBC (Bld) 36.7 % Normal 19-41 [facility] Comment on above: Performed By: #### L 501.9940, L500.4050, L100.0100 #### [facility] [address] [place], [address] MCH (RBC) [Entitic mass] 31.2 pg Normal 27.0-32.0 [facility] Comment on above: Performed By: #### L 501.9940, L500.4050, L100.0100 #### [facility] [address] [place], [address] MCHC (RBC) [Mass/Vol] 34.2 g/dL Normal 32-36 [facility] Comment on above: Performed By: #### L 501.9940, L500.4050, L100.0100 #### [facility] [address] [place], [address] MCV (RBC) [Entitic vol] 91.2 fL Normal 80-94 [facility] Comment on above: Performed By: #### L 501.9940, L500.4050, L100.0100 #### [facility] [address] [place], [address] Monocytes/100 WBC (Bld) 12.2 % High 0-10 [facility] Comment on above: Performed By: #### L 501.9940, L500.4050, L100.0100 #### [facility] [address] [place], [address] Neutrophils/100 WBC (Bld) 45.3 % Low 47-70 [facility] Comment on above: Performed By: #### L 501.9940, L500.4050, L100.0100 #### [facility] [address] [place], [address] Nucleated RBC (Bld) [#/Vol] 0 10*3/uL Normal 0-5 [facility] Comment on above: Performed By: #### L 501.9940, L500.4050, L100.0100 #### [facility] [address] [place], [address] Platelet mean volume (Bld) [Entitic vol] 9.2 fL Normal 6.2-12.0 [facility] Comment on above: Performed By: #### L 501.9940, L500.4050, L100.0100 #### [facility] [address] [place], [address] Platelets (Bld) [#/Vol] 211 10*3/uL Normal 150-450 [facility] Comment on above: Performed By: #### L 501.9940, L500.4050, L100.0100 #### [facility] [address] [place], [address] RBC (Bld) [#/Vol] 4.52 10*6/uL Low 4.6-6.2 [facility] Comment on above: Performed By: #### L 501.9940, L500.4050, L100.0100 #### [facility] [address] [place], [address] RDW SD 40.7 fl Normal 35.1-43.9 [facility] Comment on above: Performed By: #### L 501.9940, L500.4050, L100.0100 #### [facility] [address] [place], [address] WBC (Bld) [#/Vol] 4.4 10*3/uL Normal 4.4-11.0 [facility] Comment on above: Performed By: #### L 501.9940, L500.4050, L100.0100 #### [facility] [address] [place], [address] Comprehensive Metabolic Prof ilon 03-26-2024 Albumin [Mass/Vol] 3.7 g/dL Normal 3.2-5.0 [facility] Comment on above: Performed By: #### L 501.9940, L500.4050, L100.0100 #### [facility] [address] [place], [address] Albumin/Globulin [Mass ratio] 1.1 {ratio} Normal 0.9-2.4 [facility] Comment on above: Performed By: #### L 501.9940, L500.4050, L100.0100 #### [facility] [address] [place], [address] ALK P 53 U/L Normal 45-117 [facility] Comment on above: Performed By: #### L 501.9940, L500.4050, L100.0100 #### [facility] [address] [place], [address] ALT [Catalytic activity/Vol] 27 U/L Normal 16-61 [facility] Comment on above: Performed By: #### L 501.9940, L500.4050, L100.0100 #### [facility] [address] [place], [address] AST [Catalytic activity/Vol] 20 U/L Normal 15-37 [facility] Comment on above: Performed By: #### L 501.9940, L500.4050, L100.0100 #### [facility] [address] [place], [address] Bilirubin [Mass/Vol] 0.50 mg/dL Normal 0.20-1.00 [facility] Comment on above: Result Comment: For patients on eltrombopag therapy, use of Dimension Norman TBIL is not recommended. Performed By: #### L 501.9940, L500.4050, L100.0100 #### [facility] [address] [place], [address] BUN/CRE 27.1 RATIO High 10-20 [facility] Comment on above: Performed By: #### L 501.9940, L500.4050, L100.0100 #### [facility] [address] [place], [address] CA,Total 9.4 mg/dL Normal 8.5-10.1 [facility] Comment on above: Performed By: #### L 501.9940, L500.4050, L100.0100 #### [facility] [address] [place], [address] Chloride [Moles/Vol] 107 mmol/L Normal 98-107 [facility] Comment on above: Performed By: #### L 501.9940, L500.4050, L100.0100 #### [facility] [address] [place], [address] CO2 [Moles/Vol] 30.0 mmol/L Normal 21.0-32.0 [facility] Comment on above: Performed By: #### L 501.9940, L500.4050, L100.0100 #### [facility] [address] [place], [address] Creatinine [Mass/Vol] 0.85 mg/dL Normal 0.70-1.30 [facility] Comment on above: Result Comment: The validity of the calculated GFR GFRAA in patients over 70 years has not been determined. Clinical correlation is essential. Performed By: #### L 501.9940, L500.4050, L100.0100 #### [facility] [address] [place], [address] ECRCL 104.76 ml/min Normal [facility] Comment on above: Performed By: #### L 501.9940, L500.4050, L100.0100 #### [facility] [address] [place], [address] EST GFR - AA 117 mL/min Normal >60 [facility] Comment on above: Result Comment: Afri can Tristanian GFR Calc Performed By: #### L 501.9940, L500.4050, L100.0100 #### [facility] [address] [place], [address] GAP 2 Low 5-15 [facility] Comment on above: Performed By: #### L 501.9940, L500.4050, L100.0100 #### [facility] [address] [place], [address] GFR/1.73 sq M.predicted among non-blacks MDRD (S/P/Bld) [Vol rate/Area] 97 mL/min/{1.73_m2} Normal >60 [facility] Comment on above: Result Comment: Non- GFR Calc Performed By: #### L 501.9940, L500.4050, L100.0100 #### [facility] [address] [place], [address] Globulin (S) [Mass/Vol] 3.3 g/dL Normal 2.2-4.2 [facility] Comment on above: Performed By: #### L 501.9940, L500.4050, L100.0100 #### [facility] [address] [place], [address] Glucose [Mass/Vol] 86 mg/dL Normal 74-106 [facility] Comment on above: Performed By: #### L 501.9940, L500.4050, L100.0100 #### [facility] [address] [place], [address] Potassium [Moles/Vol] 3.9 mmol/L Normal 3.5-5.1 [facility] Comment on above: Performed By: #### L 501.9940, L500.4050, L100.0100 #### [facility] [address] [place], [address] Sodium [Moles/Vol] 139 mmol/L Normal 136-145 [facility] Comment on above: Performed By: #### L 501.9940, L500.4050, L100.0100 #### [facility] [address] [place], [address] T PROT 7.0 g/dL Normal 6.4-8.2 [facility] Comment on above: Performed By: #### L 501.9940, L500.4050, L100.0100 #### [facility] [address] [place], [address] Urea nitrogen [Mass/Vol] 23 mg/dL High 7-18 [facility] Comment on above: Performed By: #### L 501.9940, L500.4050, L100.0100 #### [facility] [address] [place], [address] PSA,Total- Diagnosticon 01-0 PSA, DIAGNOSTIC 0.01 ng/mL Normal 0.0-4.0 [facility] Comment on above: Result Comment: This test was performed using the TPSA assay method for the Dimension chemistry system. Values obtained with different assay methods cannot be used interchangably. When changing PSA assays in the course of monitoring a patient, additional sequential testing should be carried out to confirm baseline values. Performed By: #### L 501.9940, L500.4050, L100.0100 #### [facility] [address] [place], [address] CBC W/Diff, Automatedon 11 Absolute Lymph 1.32 X10 3/uL Normal 0.83-4.51 [facility] Comment on above: Performed By: #### L 500.4050, L501.9940, L100.0100 #### [facility] [address] [place], [address] Absolute Neut 2.0 X10 3/uL Normal 2.0-7.7 [facility] Comment on above: Performed By: #### L 500.4050, L501.9940, L100.0100 #### [facility] [address] [place], [address] Basophils/100 WBC (Bld) 0.5 % Normal 0-1 [facility] Comment on above: Performed By: #### L 500.4050, L501.9940, L100.0100 #### [facility] [address] [place], [address] Eosinophils/100 WBC (Bld) 7.7 % High 0-5 [facility] Comment on above: Performed By: #### L 500.4050, L501.9940, L100.0100 #### [facility] [address] [place], [address] Erythrocyte distribution width (RBC) [Ratio] 12.0 % Normal 11.6-14.6 [facility] Comment on above: Performed By: #### L 500.4050, L501.9940, L100.0100 #### [facility] [address] [place], [address] Hematocrit (Bld) [Volume fraction] 39.0 % Low 40-54 [facility] Comment on above: Performed By: #### L 500.4050, L501.9940, L100.0100 #### [facility] [address] [place], [address] Hemoglobin (Bld) [Mass/Vol] 13.4 g/dL Normal 13.0-16.5 [facility] Comment on above: Performed By: #### L 500.4050, L501.9940, L100.0100 #### [facility] [address] [place], [address] IG% 0.500 Normal 0.0-0.9 [facility] Comment on above: Result Comment: IG% - Immature Granulocytes (promyelocytes, myelocytes and metamyelocytes) > 1% indicates that a LEFT SHIFT is Present. Performed By: #### L 500.4050, L501.9940, L100.0100 #### [facility] [address] [place], [address] Lymphocytes/100 WBC (Bld) 31.0 % Normal 19-41 [facility] Comment on above: Performed By: #### L 500.4050, L501.9940, L100.0100 #### [facility] [address] [place], [address] MCH (RBC) [Entitic mass] 30.9 pg Normal 27.0-32.0 [facility] Comment on above: Performed By: #### L 500.4050, L501.9940, L100.0100 #### [facility] [address] [place], [address] MCHC (RBC) [Mass/Vol] 34.4 g/dL Normal 32-36 [facility] Comment on above: Performed By: #### L 500.4050, L501.9940, L100.0100 #### [facility] [address] [place], [address] MCV (RBC) [Entitic vol] 90.1 fL Normal 80-94 [facility] Comment on above: Performed By: #### L 500.4050, L501.9940, L100.0100 #### [facility] [address] [place], [address] Monocytes/100 WBC (Bld) 12.9 % High 0-10 [facility] Comment on above: Performed By: #### L 500.4050, L501.9940, L100.0100 #### [facility] [address] [place], [address] Neutrophils/100 WBC (Bld) 47.4 % Normal 47-70 [facility] Comment on above: Performed By: #### L 500.4050, L501.9940, L100.0100 #### [facility] [address] [place], [address] Nucleated RBC (Bld) [#/Vol] 0 10*3/uL Normal 0-5 [facility] Comment on above: Performed By: #### L 500.4050, L501.9940, L100.0100 #### [facility] [address] [place], [address] Platelet mean volume (Bld) [Entitic vol] 9.0 fL Normal 6.2-12.0 [facility] Comment on above: Performed By: #### L 500.4050, L501.9940, L100.0100 #### [facility] [address] [place], [address] Platelets (Bld) [#/Vol] 218 10*3/uL Normal 150-450 [facility] Comment on above: Performed By: #### L 500.4050, L501.9940, L100.0100 #### [facility] [address] [place], [address] RBC (Bld) [#/Vol] 4.33 10*6/uL Low 4.6-6.2 [facility] Comment on above: Performed By: #### L 500.4050, L501.9940, L100.0100 #### [facility] [address] [place], [address] RDW SD 39.9 fl Normal 35.1-43.9 [facility] Comment on above: Performed By: #### L 500.4050, L501.9940, L100.0100 #### [facility] [address] [place], [address] WBC (Bld) [#/Vol] 4.3 10*3/uL Low 4.4-11.0 [facility] Comment on above: Performed By: #### L 500.4050, L501.9940, L100.0100 #### [facility] [address] [place], [address] Comprehensive Metabolic Prof [facility] 02-14-2024 Albumin [Mass/Vol] 3.5 g/dL Normal 3.2-5.0 [facility] Comment on above: Performed By: #### L 500.4050, L501.9940, L100.0100 #### [facility] [address] [place], [address] Albumin/Globulin [Mass ratio] 1.1 {ratio} Normal 0.9-2.4 [facility] Comment on above: Performed By: #### L 500.4050, L501.9940, L100.0100 #### [facility] [address] [place], [address] ALK P 54 U/L Normal 45-117 [facility] Comment on above: Performed By: #### L 500.4050, L501.9940, L100.0100 #### [facility] [address] [place], [address] ALT [Catalytic activity/Vol] 18 U/L Normal 16-61 [facility] Comment on above: Performed By: #### L 500.4050, L501.9940, L100.0100 #### [facility] [address] [place], [address] AST [Catalytic activity/Vol] 20 U/L Normal 15-37 [facility] Comment on above: Performed By: #### L 500.4050, L501.9940, L100.0100 #### [facility] [address] [place], [address] Bilirubin [Mass/Vol] 0.40 mg/dL Normal 0.20-1.00 [facility] Comment on above: Result Comment: For patients on eltrombopag therapy, use of Dimension Norman TBIL is not recommended. Performed By: #### L 500.4050, L501.9940, L100.0100 #### [facility] [address] [place], [address] BUN/CRE 32.6 RATIO High 10-20 [facility] Comment on above: Performed By: #### L 500.4050, L501.9940, L100.0100 #### [facility] [address] [place], [address] CA,Total 8.6 mg/dL Normal 8.5-10.1 [facility] Comment on above: Performed By: #### L 500.4050, L501.9940, L100.0100 #### [facility] [address] [place], [address] Chloride [Moles/Vol] 110 mmol/L High 98-107 [facility] Comment on above: Performed By: #### L 500.4050, L501.9940, L100.0100 #### [facility] [address] [place], [address] CO2 [Moles/Vol] 23.0 mmol/L Normal 21.0-32.0 [facility] Comment on above: Performed By: #### L 500.4050, L501.9940, L100.0100 #### [facility] [address] [place], [address] Creatinine [Mass/Vol] 0.80 mg/dL Normal 0.70-1.30 [facility] Comment on above: Result Comment: The validity of the calculated GFR GFRAA in patients over 70 years has not been determined. Clinical correlation is essential. Performed By: #### L 500.4050, L501.9940, L100.0100 #### [facility] [address] [place], [address] ECRCL 111.31 ml/min Normal [facility] Comment on above: Performed By: #### L 500.4050, L501.9940, L100.0100 #### [facility] [address] [place], [address] EST GFR - AA 126 mL/min Normal >60 [facility] Comment on above: Result Comment: Afri can Tristanian GFR Calc Performed By: #### L 500.4050, L501.9940, L100.0100 #### [facility] [address] [place], [address] GAP 6 Normal 5-15 [facility] Comment on above: Performed By: #### L 500.4050, L501.9940, L100.0100 #### [facility] [address] [place], [address] GFR/1.73 sq M.predicted among non-blacks MDRD (S/P/Bld) [Vol rate/Area] 104 mL/min/{1.73_m2} Normal >60 [facility] Comment on above: Result Comment: Non- GFR Calc Performed By: #### L 500.4050, L501.9940, L100.0100 #### [facility] [address] [place], [address] Globulin (S) [Mass/Vol] 3.1 g/dL Normal 2.2-4.2 [facility] Comment on above: Performed By: #### L 500.4050, L501.9940, L100.0100 #### [facility] [address] [place], [address] Glucose [Mass/Vol] 108 mg/dL High 74-106 [facility] Comment on above: Result Comment: Fast ing Glucose result from 100 to 125 mg/dL suggests IMPAIRED HOMEOSTASIS per A.D.A. criteria. Performed By: #### L 500.4050, L501.9940, L100.0100 #### [facility] [address] [place], [address] Potassium [Moles/Vol] 4.1 mmol/L Normal 3.5-5.1 [facility] Comment on above: Performed By: #### L 500.4050, L501.9940, L100.0100 #### [facility] [address] [place], [address] Sodium [Moles/Vol] 139 mmol/L Normal 136-145 [facility] Comment on above: Performed By: #### L 500.4050, L501.9940, L100.0100 #### [facility] [address] [place], [address] T PROT 6.6 g/dL Normal 6.4-8.2 [facility] Comment on above: Performed By: #### L 500.4050, L501.9940, L100.0100 #### [facility] [address] [place], [address] Urea nitrogen [Mass/Vol] 26 mg/dL High 7-18 [facility] Comment on above: Performed By: #### L 500.4050, L501.9940, L100.0100 #### [facility] [address] [place], [address] Oncology Visit Reporton 01-19 Oncology Visit Report [facility] [place] [facility] [address] [place] [address] OFFICE VISIT Date of Service: 02/14/24 0955 MR#: [id number] Acct: [id number] Name: SAE KAPADIA Rep #: [id number] : 1960 From: Luis Cooney MD Age/Sex: 63/M Location: [facility] Status: Signed HPI Subjective Date of Service 02/14/24 Chief Complaint Prostate cancer on treatment History of Present Illness Patient is a 62-year-old gentleman, lopez, who noted a painless left groin mass in July 2017, thought to be a hernia for which September 13, 2017:???CT scan of the abdomen and pelvis??? revealed marked retroperitoneal, periaortic, and left iliac adenopathy with the largest lymph node mass measuring 5.6 cm in the lower periaortic/co mmon iliac chain, together with a CT scan of the chest on September 21 showed no visceral metastatic disease. September 21, 2017:???A CT-guided biopsy of retroperitoneal lymph nodes??? revealed metastatic adenocarcinoma PSA positive consistent with metastatic prostate cancer.?Cancer is microsatellite stable???( [facility] March 2020) October 2020 genetic testing at for a 47 gene panel showed no known pathogenic mutation, was a variant of uncertain significance. September 29, 2017:??? PSA >154. September 28, 2017:???A bone scan??? showed changes within the vertebral spine that were thought degenerative and inflammatory. He received a Lupron injection in September 2017 under the care of his urologist Dr. Jimenez, with Casodex cover in the first month then referred for a second opinion at where he was seen again by urologist Dr. Conn who informed him that his disease was non-operable, advised continued androgen deprivation therapy and consultation with medical oncology.??? He was also seen by radiation oncology at [facility] by Dr. Murray who advised medical management. December 26, 2017:???A follow-up??? bone scan??? showed interval progressive changes scattered throughout the axial and proximal appendicular skeleton in addition to several small new foci highly suspicious for progressive osseous metastatic disease. December 22, 2017:???PSA??? down to 20 and his testosterone level was consistent with a castrate level of 8. February 19, 2018:???Patient is transferring care to [facility] for proximity to his residence, PSA??? further down to 13. July 31, 2018: Bone scan: IMPRESSION: 1.??? The increased radiopharmaceutical concentration identified in the third thoracic vertebra may be further investigated with plain film radiography in the setting of known prostate carcinoma if not previously obtained. ??? 2.??? Degenerative arthritis remains apparent in the thoracic and lumbar spine, sacrum, left hip, bilateral shoulders elbows bilaterally, left wrist, right-left knees and right ankle articulation. ??? 3.??? Overall compared to the previous whole body bone scintigraphy study dated 12/26/2017, the persistent increase in tracer uptake noted in the third thoracic vertebra warrants further evaluation with plain film radiography is not previously obtained. Otherwise, there is no significant interval change compared to the prior examination. February 2019 bone scan: IMPRESSION: 1.??? The increase in radiopharmaceutical concentration identified in the cervical thoracic and lumbar spine, both shoulders, sacrum, wrist and elbow articulations bilaterally, right and left hips, both knees is commensurate with degenerative arthritis. ???2.??? Overall compared to the previous whole body bone scintigraphy study dated 07/31/2018, there is no significant interval change.??? There is no present typical scintigraphic evidence of diffuse axial skeletal metastatic disease. October 17, 2019 bone scan: IMPRESSION: 1. The increase in radiopharmaceutical distribution currently defined in the cervical, thoracic and lumbar spine, sacrum, bilateral shoulders, left elbow, right-left knees, the right ankle and left wrist are commensurate with degenerative arthritis. 2.??? Overall compared to the previous whole body bone scintigraphy study dated 03/19/2019, there is no significant interval change.??? No current typical scintigraphic evidence of diffuse axial skeletal metastatic disease is demonstrated on the present examination. March 18, 2020 bone scan: IMPRESSION: 1.??? The increase in tracer distribution defined in the cervical, thoracic and lumbar spine, sacrum, right and left shoulders, knees bilaterally, both wrist articulations is commensurate with degenerative arthritis. 2.??? Overall compared to the previous whole body bone scintigraphy study dated 10/17/2019, there is no significant interval change.??? No current typical scintigraphic evidence of skeletal metastatic disease is demonstrated on the current examination. April 20, 2020 CT abdomen and pelvis: Co (more content not included)... Normal [facility] PSA,Total- Diagnosticon 11-2 PSA, DIAGNOSTIC < 0.01 Normal 0.0-4.0 [facility] Comment on above: Result Comment: This test was performed using the TPSA assay method for the [employer] chemistry system. Values obtained with different assay methods cannot be used interchangably. When changing PSA assays in the course of monitoring a patient, additional sequential testing should be carried out to confirm baseline values. Performed By: #### L 500.4050, L501.9940, L100.0100 #### [facility] [address] 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 Skin was prepped with Betadine, vapo coolant spray and alcohol. Administered injection of 40 mg Kenalog, 3 cc 2% lidocaine and 3 cc of 0.25% bupivacaine. Patient tolerated injection well with lidocaine suppression. No active bleeding, bandage applied to site. Procedure, treatment alternatives, risks and benefits explained, specific risks discussed. Consent was given by the patient. Immediately prior to procedure a time out was called to verify the correct patient, procedure, equipment, service support representative and site/side marked as required. Patient was prepped and draped in the usual sterile fashion. [facility] Work Phone: [facility] Work Phone: Excision of Benign Lesionon 07-18-2023 Kathryn Klein MD 07/18/2023 3:46 PM Excision of Benign Lesion Date/Time: 07/18/2023 12:24 PM Performed by: Kathryn Klein MD Authorized by: Kathryn Klein MD Consent: Consent obtained: Written Consent given by: Patient Risks, benefits, and alternatives were discussed: yes Risks discussed: Bleeding, infection, pain, poor cosmetic result and incomplete drainage [place] protocol: Procedure explained and questions answered to patient or proxy's satisfaction: yes Relevant documents present and verified: yes Site/side marked: yes Immediately prior to procedure, a time out was called: yes Patient identity confirmed: Verbally with patient Pre-procedure details: Skin preparation: Povidone-iodine Preparation: Patient was prepped and draped in the usual sterile fashion Sedation: Sedation type: None Anesthesia: Anesthesia method: Local infiltration Local anesthetic: Lidocaine 1% w/o epi Procedure specific details: An ellipse of skin was removed to include the punctum. The cyst ruptured and the contents were extruded and then the cyst wall was pulled out. The base was cauterized in case there is any residual cells left. Subcutaneous tissues were approximated using 4-0 Vicryl and the skin closed with 4-0 Prolene. Dressings were applied. Post-procedure details: Procedure completion: Tolerated well, no immediate complications [facility] Work Phone: [facility] Work Phone: Absolute lymphocyte countOrd ered By: Luis Cooney on 01-25-2023 Lymphocytes Auto (Unsp spec) [#/Vol] 0.81 10*3/uL 0.83-4.51 [facility] Basophil percentageOrdered B y: Luis Cooney on 01-25-2023 Basophils/100 WBC (Bld) 0.5 % 0-1 [facility] Bilirubin [Mass/Vol] 0.50 mg/dL 0.20-1.00 [facility] Comment on above: For patients on eltr ombopag therapy, use of Dimension [place] TBIL is not recommended. Chloride [Moles/Vol] 107 mmol/L 98-107 [facility] Eosinophils/100 WBC (Bld) 3.3 % 0-5 [facility] Glucose [Mass/Vol] 125 mg/dL 74-106 [facility] [place] Comment on above: Fasting Glucose resu lt from 100 to 125 mg/dL suggests IMPAIRED HOMEOSTASIS per A.D.A. criteria. Neutrophils (Bld) [#/Vol] 2.8 10*3/uL 2.0-7.7 [facility] Neutrophils/100 WBC (Bld) 67.6 % 47-70 [facility] Potassium [Moles/Vol] 4.0 mmol/L 3.5-5.1 [facility] Protein [Mass/Vol] 6.8 g/dL 6.4-8.2 [facility] Sodium [Moles/Vol] 139 mmol/L 136-145 [facility] WBC (Bld) [#/Vol] 4.2 10*3/uL 4.4-11.0 [facility] Blood erythrocytes count (nu mber/volume)Ordered By: Luis Cooney on 01-25-2023 RBC (Bld) [#/Vol] 4.44 10*6/uL 4.6-6.2 [facility] Blood hemoglobin measurement (mass/volume)Ordered By: Luis Cooney on 01-25-2023 Hemoglobin (Bld) [Mass/Vol] 13.4 g/dL 13.0-16.5 [facility] Blood lymphocytes/100 leukoc ytesOrdered By: Luis Cooney on 01-25-2023 Lymphocytes/100 WBC (Bld) 19.3 % 19-41 [facility] Blood monocytes/100 leukocyt esOrdered By: Luis Cooney on 01-25-2023 Monocytes/100 WBC (Bld) 8.6 % 0-10 [facility] Blood platelet mean volumeOr dered By: Luis Cooney on 01-25-2023 Platelet mean volume (Bld) [Entitic vol] 9.4 fL 6.2-12.0 [facility] Determination of erythrocyte mean corpuscular volume (MCV)Ordered By: Luis Cooney on 01-25-2023 MCV (RBC) [Entitic vol] 90.1 fL 80-94 [facility] Hematocrit Auto (Bld) [Volum e fraction]Ordered By: Luis Cooney on 01-25-2023 Hematocrit (Bld) [Volume fraction] 40.0 % 40-54 [facility] - Chemistry and C hemistry - challengeOrdered By: [facility] on 01-25-2023 ALP [Catalytic activity/Vol] 55 U/L 45-117 [facility] ALT [Catalytic activity/Vol] 27 U/L 16-61 [facility] CO2 [Moles/Vol] 26.0 mmol/L 21.0-32.0 [facility] Globulin (S) [Mass/Vol] 3.2 g/dL 2.2-4.2 [facility] Urea nitrogen/Creatinine [Mass ratio] 26.4 mg/mg 10-20 [facility] - Hematology and Cell countsOrdered By: [facility] on 01-25-2023 Erythrocyte distribution width (RBC) [Entitic vol] 41.5 fL 35.1-43.9 [facility] Erythrocyte distribution width (RBC) [Ratio] 12.6 % 11.6-14.6 [facility] Immature granulocytes/100 WBC (Bld) 0.700 % 0.0-0.9 [facility] Comment on above: IG% - Immature Granu locytes (promyelocytes, myelocytes and metamyelocytes) > 1% indicates that a LEFT SHIFT is Present. MCH (RBC) [Entitic mass] 30.2 pg 27.0-32.0 [facility] Nucleated RBC/100 WBC (Bld) [Ratio] 0 % 0-5 [facility] MCHC Auto (RBC) [Mass/Vol]Or dered By: Luis Cooney on 01-25-2023 MCHC (RBC) [Mass/Vol] 33.5 g/dL 32-36 [facility] No Panel InformationOrdered By: Luis Cooney on 01-25-2023 Estimated Creatinine Clearance Calc 125.27 ml/min [facility] Estimated GFR (MDRD) Amer 143 mL/min >60 [facility] Comment on above: GFR Calc Estimated GFR (MDRD) Non-Af Amer 118 mL/min >60 [facility] Comment on above: Non- GFR Calc Prostate Specific Antigen Total 1.62 ng/mL 0.0-4.0 [facility] Comment on above: This test was perfor med using the TPSA assay method for the[employer] chemistry system. Values obtained with differentassay methods cannot be used interchangably.When changing PSA assays in the course of monitoring apatient, additional sequential testing should be carriedout to confirm baseline values. Platelets bldOrdered By: Garrison Cooney on 01-25-2023 Platelets (Bld) [#/Vol] 216 10*3/uL 150-450 [facility] Serum or plasma albumin pati urement (mass/volume)Ordered By: Luis Cooney on 01-25-2023 Albumin [Mass/Vol] 3.6 g/dL 3.2-5.0 [facility] Serum or plasma albumin/glob ulin mass ratioOrdered By: Luis Cooney on 01-25-2023 Albumin/Globulin [Mass ratio] 1.1 {ratio} 0.9-2.4 [facility] Serum or plasma calcium pati urement (mass/volume)Ordered By: Luis Cooney on 01-25-2023 Calcium [Mass/Vol] 8.9 mg/dL 8.5-10.1 [facility] Serum or plasma creatinine m easurement (mass/volume)Ordered By: Luis Cooney on 01-25-2023 Creatinine [Mass/Vol] 0.72 mg/dL 0.70-1.30 [facility] Comment on above: The validity of the calculated GFR & GFRAA in patients over 70 years has not been determined. Clinical correlation is essential. Serum or plasma urea nitroge n measurement (mass/volume)Ordered By: Luis Cooney on 01-25-2023 Urea nitrogen [Mass/Vol] 19 mg/dL 7-18 [facility] Thin prep Papanicolaou smear with manual screeningOrdered By: Luis Cooney on 01-25-2023 Thin prep Papanicolaou smear with manual screening 19 U/L 15-37 [facility] Thin prep Papanicolaou smear with manual screening 6 5-15 [facility] CNOVon 12-01-2022 CNOV Office Visit (AGPOB1 ) ----- SAE KAPADIA ([id number]) 1960 M Date Time Provider Department 12/01/22 7:45 AM JOHNSON ZAVALA AGPOB1 During your visit today, we recorded the following information about you: Respiration Weight Height 20/minute 90 kg 1.88 m Johnson Zavala MD 12/01/2022 8:14 AM Signed ORTHOPAEDIC OFFICE NOTE CHIEF COMPLAINT: left hip injury HISTORY OF PRESENT ILLNESS: Sae Kapadia is a 62 year old male who presents for reevaluation after intramedullary nail placement left femur for subtrochanteric fracture 08/29/2022. He continues to ambulate and weight-bear as tolerated with no new symptoms. Denies pain in the groin or lateral thigh. No instability identified. No new injury mechanism. No recent fevers chills nausea or vomiting. Reviewed nursing note and current pain scale. PAST MEDICAL HISTORY Diagnosis Date - Cancer (HCC) - Hyperlipemia - Hypertension - Mitral valve disorders(424.0) History reviewed. No pertinent surgical history. FAMILY HISTORY Problem Relation Age of Onset - Hypertension Mother - Hypertension Father - Hypertension Sister - Hypertension Brother - Cancer Paternal Grandmother - other (ANURYSM [Other]) Maternal Grandmother - Heart Maternal Grandfather - Prostate Cancer Father Social History Tobacco Use - Smoking status: Never - Smokeless tobacco: Never Substance Use Topics - Alcohol use: Yes Comment: OCCASSIONAL SOCIALLY - Drug use: No MEDICATIONS: Current Outpatient Medications Medication Sig - FOLDING WALKER WITH 5 WHEELS 2 wheeled walker - ropinirole HCl (REQUIP ORAL) Take 0.5 mg by mouth twice daily. - rosuvastatin (CRESTOR) 10 mg tablet Take 10 mg by mouth once daily. - losartan (COZAAR) 50 mg tablet Take 50 mg by mouth once daily. - abiraterone 250 mg tablet Take 1,000 mg by mouth once daily. 250 mg x 4 tabs daily - predniSONE (DELTASONE) 5 mg tablet Take 5 mg by mouth once daily. 1 hour after abiraterone dose - venlafaxine (EFFEXOR) 37.5 mg tablet Take 37.5 mg by mouth once daily. - leuprolide acetate (LUPRON DEPOT INTRAMUSC.) Inject intramuscularly. - zoledronic acid (ZOMETA INTRAVENOUS) Inject intravenously. - NAPROXEN 500 MG TAB Take one(1) tablet twice daily as needed for pain, with food. No current facility-administered medications for this visit. ALLERGIES: ALLERGIES No Known Allergies PHYSICAL EXAMINATION: Resp 20 Ht 6' 2 (1.88m) Wt 198 lb 6.4 oz (90.0kg) BMI 25.46 kg/(m2). General Appearance: Well appearing, alert, in no acute distress, well-hydrated, well nourished. Skin: Skin color, texture, turgor normal, no suspicious rashes or lesions. Extremities: Left lower extremity with no new deformity. Left thigh and leg compartments soft and compressible. Left lower extremity length and rotation symmetric to contralateral side while seated. Passive left hip internal and external rotation demonstrates full smooth arc of motion and elicits no pain. No pain with axial load. Peripheral Pulses: Normal. Neurologic: Intact light touch sensation left lower extremity. IMAGES: Recent Results (from the past 36 hour(s)) XR FEMUR GENERAL 2V AP/LAT LEFT Narrative AP and lateral views left femur demonstrate no change in position of the intramedullary implant stabilizing the subtrochanteric femur fracture. Continued bone activity within the fracture region is evident. No new fracture identified. ASSESSMENT AND PLAN: 1. Closed displaced subtrochanteric fracture of left femur with routine healing, subsequent encounter - ICD9: V54.13, ICD10: S72.22XD Functional Plan: No restrictions with weightbearing or range of motion left lower extremity. Assistance Devices: None. Physical/Occupational Therapy: None, very active patient. Wound Care: None. Pain Control: No change in pain regimen recommended this office visit. Fragility Fracture: Previously addressed; atypical bisphosphonate fracture in context of high-energy fall. Additional: None. Follow-up in 12 weeks for likely final images. Johnson Zavala MD Medical Decision Making: Problems: Low: Stable chronic illness Data: Unique test result(s) reviewed: 1 Unique test(s) ordered: 1 Risk: Low: Low risk from testing/treatment Medical Decision Making Level: 3 - Low Allergies As of Date: 12/01/2022 (No Known Allergies) Date Reviewed: 12/01/2022 Reviewed by: Yanci Hazel MA - Fully Assessed Reason for Visit: Established Patient [175] Follow Up [171] Primary Visit Diagnosis:Closed displaced subtrochanteric fracture of left femur with routine healing, subsequent encounter [S72.22XD] Order(s):XR FEMUR GENERAL 2V AP/LAT LEFT [0476180] Order #: [id number] Prescriptions as of 12/01/2022 - FOLDING WALKER WITH 5 WHEELS 2 wheeled walker - ropinirole HCl (REQUIP ORAL) Take 0.5 mg by mouth twice daily. - rosu (more content not included)... Normal [facility] PT Progress Noteon 3 PT Progress Note Therapy Diagnosis Assessed Other fracture of left femur, subsequent encounter for closed fracture with routine healing (V54.15) (S72.8X2D) Acute pain of left hip (719.45) (M25.552) Plan Goals: Goals set and discussed today. 1. Independent HEP to allow for 50% reduction in max ADL C/C sx ( 7/10) 2-3wks 2/10 max sx within the last 5 days; 11/18/22; MET 2. Survey score improvement from 44/80 to 55/80 (LEFS) 3-4wks 69/80 as of 11/18/22; MET 3. ROM increase to allow for improved ADL dressing lowers, car transfers (from 130 to 135 L knee flexion) 4-6wks 135 active knee flexion; improved noted ADL; 11/18/22; MET 4. Strength increase to allow for improved ADL STS, gait on F/S (from gr4 to gr4+ L knee flex/ext) 4-6wks gr4+ knee flex/ext today; improved noted ADL; 11/18/22; MET 5. Strength increase to allow for improved ADL STS, gait on F/S (from gr4- to gr4+ L hip) 4-6wks improved noted ADL; gr4+ L hip flex/ext, gr4 L hip abd; 11/18/22; PARTIALLY MET Planned interventions include: aquatic therapy, cryotherapy, education/instruction, gait training, home program, kinesiotaping, manual therapy, neuromuscular re-education, self care/home management and therapeutic exercises. Frequency and duration: 2 time(s) a week, for 6 weeks, for 12 visits. Potential to achieve rehab goals is excellent the patient has completed 6 wks of clinic visits; he agreed to trial HEP until Drs visit in 10 days; continue therapy PRN (25$ copay). Assessment Patient identity confirmed today with name/. see goals; the patient entered the clinic without a cane today-there is a ipsi trunk lean with LLE WBing; good strength and ROM and ADL gains; hip abduction strength deficit (with gait also) is the main remaining limitation to this point; reviewed ongoing HEP today . Adult Risk Screening There are no spiritual/cultural practices/values/needs that are important to know Initial Fall Risk Screening: SAE has fallen in the last 6 months. He has fallen due to ladder broke. His fall resulted in the following injury: present injury. SAE has a fear of falling. He does not need assistance with sitting, standing or walking. Does not need assistance walking in his home. He does not need assistance in an unfamiliar setting. The patient is using an assistive device. Fall Risk Screening: Patient is identified as a fall risk. Care Plan: Moderate Risk: Low risk interventions plus: do not leave patient on exam table unattended, supervised activity, educate patient/family on falls prevention, review safety initiatives with patient/family, family at bedside as allowed, yellow falls risk band, focus rounding attention, locate patient in area of high visibility, wheelchair, bed, or personal alarm, bedside commode, elevated toilet seat and pharmacy consult for medication concerns. Please identify location of pain: denies pain. Living Will. Living Will: Living will on file. Patient Declined. Healthcare POA: Health care proxy on file. Patient Declined. Declaration of Mental Health Treatment: No mental health treatment on file. Patient Declined. Insurance Insurance reviewed Visit number: 01/30 [facility] 30 PT/OT 25$ copay Evaluating therapist Kalin Clancy PT. S72.8X2D; M25.562 mod fall risk Subjective Patient reports:. No pain right now. Precautions: Fall Risk: moderate Pertinent medical HX includes: mid prostate CA management; V-tach. Treatment Time in clinic started at 10:15 am Time in clinic ended at 10:45 am Total time in clinic is 30 minutes. Total timed code time is 12 minutes. Therapeutic exercise (48808): timed minutes 12, units 1 . reviewed ongoing HEP NOT TODAY Sci-fit L2 /Nu Step L3 7mins HEP: rollar bar massage and stretching hams gastroc IT band for HEP (N) ON Turf Field : [employer] Balance Beam HR/TR 15x (N) 24 sport step D/L Squats 10x (N) 30 sport step Pistol squat 10x (N) 3 point star with heel taps 10x (N) Sports Cord [address] gait 3x each direction (N) Lunges on BOSU Fwd 10x each (N) L SLR 3 x10 3# P hooklying clamshell 2x15 blk/chetna P bridging 3 x10 5 hold P Hooklying Hip add x15 3? hold X RSL L hip abd 2x15 P HS curl LLE 2x10 Blue TBand P stdg TKE 2x15 blk P stdg hip abd 2x10 ea stdg L hip abd peach 2x10 stdg lunge 2x10 ea stdg march 2x15 ea P uni leg press 85# LLE 3x10 P wt R lateral steps with SC (two cord) 3x10 (P) Tandem gait at //bars x2 laps NOT TODAY Step ups 6 step 2x10 L leading X Standing hip extension 2x10 Bilat X Hooklying marches Green TBand 2x10 X active L heel slide x10 3 count hold X Weight shifts lat/fwd X Standing heel raises 2 x 10 X LAQ 2 x 10 X SAQ 2 x 10 X . Provided today:. HEP handout. 'Scores and Scales' Signatures Electronically signed by : Ellis Clancy, PT; Nov 18 2022 10:44AM EST (Author) [facility] Therapy Re-eval Noteon 11-18 Therapy Re-eval Note Therapy Diagnosis Assessed 1. Other fracture of left femur, subsequent encounter for closed fracture with routine healing (V54.15) (S72.8X2D) 2. Acute pain of left hip (719.45) (M25.552) Plan Goals: Goals set and discussed today. 1. Independent HEP to allow for 50% reduction in max ADL C/C sx ( 09/26) 2-3wks 210 max sx within the last 5 days; 11/18/22; MET 2. Survey score improvement from 44/80 to 55/80 (LEFS) 3-4wks 69/80 as of 11/18/22; MET 3. ROM increase to allow for improved ADL dressing lowers, car transfers (from 130 to 135 L knee flexion) 4-6wks 135 active knee flexion; improved noted ADL; 11/18/22; MET 4. Strength increase to allow for improved ADL STS, gait on F/S (from gr4 to gr4+ L knee flex/ext) 4-6wks gr4+ knee flex/ext today; improved noted ADL; 11/18/22; MET 5. Strength increase to allow for improved ADL STS, gait on F/S (from gr4- to gr4+ L hip) 4-6wks improved noted ADL; gr4+ L hip flex/ext, gr4 L hip abd; 11/18/22; PARTIALLY MET Planned interventions include: aquatic therapy, cryotherapy, education/instruction, gait training, home program, kinesiotaping, manual therapy, neuromuscular re-education, self care/home management and therapeutic exercises. Frequency and duration: 2 time(s) a week, for 6 weeks, for 12 visits. Potential to achieve rehab goals is excellent the patient has completed 6 wks of clinic visits; he agreed to trial HEP until Drs visit in 10 days; continue therapy PRN (25$ copay). Assessment Patient identity confirmed today with name/. see goals; the patient entered the clinic without a cane today-there is a ipsi trunk lean with LLE WBing; good strength and ROM and ADL gains; hip abduction strength deficit (with gait also) is the main remaining limitation to this point; reviewed ongoing HEP today . Adult Risk Screening There are no spiritual/cultural practices/values/needs that are important to know Initial Fall Risk Screening: SAE has fallen in the last 6 months. He has fallen due to ladder broke. His fall resulted in the following injury: present injury. SAE has a fear of falling. He does not need assistance with sitting, standing or walking. Does not need assistance walking in his home. He does not need assistance in an unfamiliar setting. The patient is using an assistive device. Fall Risk Screening: Patient is identified as a fall risk. Care Plan: Moderate Risk: Low risk interventions plus: do not leave patient on exam table unattended, supervised activity, educate patient/family on falls prevention, review safety initiatives with patient/family, family at bedside as allowed, yellow falls risk band, focus rounding attention, locate patient in area of high visibility, wheelchair, bed, or personal alarm, bedside commode, elevated toilet seat and pharmacy consult for medication concerns. Please identify location of pain: denies pain. Living Will. Living Will: Living will on file. Patient Declined. Healthcare POA: Health care proxy on file. Patient Declined. Declaration of Mental Health Treatment: No mental health treatment on file. Patient Declined. Insurance Insurance reviewed Visit number: 01/30 [facility] 30 PT/OT 25$ copay Evaluating therapist Kalin Clancy PT. S72.8X2D; M25.562 mod fall risk Subjective Patient reports:. No pain right now. Precautions: Fall Risk: moderate Pertinent medical HX includes: mid prostate CA management; V-tach. Treatment Time in clinic started at 10:15 am Time in clinic ended at 10:45 am Total time in clinic is 30 minutes. Total timed code time is 12 minutes. Therapeutic exercise (36657): timed minutes 12, units 1 . reviewed ongoing HEP NOT TODAY Sci-fit L2 /Nu Step L3 7mins HEP: rollar bar massage and stretching hams gastroc IT band for HEP (N) ON Turf Field : [employer] Balance Beam HR/TR 15x (N) 24 sport step D/L Squats 10x (N) 30 sport step Pistol squat 10x (N) 3 point star with heel taps 10x (N) Sports Cord [address] gait 3x each direction (N) Lunges on BOSU Fwd 10x each (N) L SLR 3 x10 3# P hooklying clamshell 2x15 blk/chetna P bridging 3 x10 5 hold P Hooklying Hip add x15 3? hold X RSL L hip abd 2x15 P HS curl LLE 2x10 Blue TBand P stdg TKE 2x15 blk P stdg hip abd 2x10 ea stdg L hip abd peach 2x10 stdg lunge 2x10 ea stdg may 2x15 ea P uni leg press 85# LLE 3x10 P wt R lateral steps with SC (two cord) 3x10 (P) Tandem gait at //bars x2 laps NOT TODAY Step ups 6 step 2x10 L leading X Standing hip extension 2x10 Bilat X Hooklying marches Green TBand 2x10 X active L heel slide x10 3 count hold X Weight shifts lat/fwd X Standing heel raises 2 x 10 X LAQ 2 x 10 X SAQ 2 x 10 X . Provided today:. HEP handout. 'Scores and Scales' Signatures Electronically signed by : Ellis Clancy PT; Nov 18 2022 10:44AM EST (Author) [facility] PT Progress Noteon 3 PT Progress Note Therapy Diagnosis Assessed Acute pain of left hip (719.45) (M25.552) Other fracture of left femur, subsequent encounter for closed fracture with routine healing (V54.15) (S72.8X2D) Plan Goals: Goals set and discussed today. 1. Independent HEP to allow for 50% reduction in max ADL C/C sx ( /10) 2-3wks 2. Survey score improvement from 44/80 to 55/80 (LEFS) 3-4wks 3. ROM increase to allow for improved ADL dressing lowers, car transfers (from 130 to 135 L knee flexion) 4-6wks 4. Strength increase to allow for improved ADL STS, gait on F/S (from gr4 to gr4+ L knee flex/ext) 4-6wks 5. Strength increase to allow for improved ADL STS, gait on F/S (from gr4- to gr4+ L hip) 4-6wks Planned interventions include: aquatic therapy, cryotherapy, education/instruction, gait training, home program, kinesiotaping, manual therapy, neuromuscular re-education, self care/home management and therapeutic exercises. Frequency and duration: 2 time(s) a week, for 6 weeks, for 12 visits. Potential to achieve rehab goals is excellent Cont. to progress strengthening and NMRE to allow improved stability and ease with standing ADLs and community ambulation. C.G. Assessment Patient was identified by name and date. Instructed self massage techniques with roller bar and stretches to cont in HEP. He voiced good understanding. This session able to progress CKC exercises on the turf field to challenge his balance and SL stance stability in L leg. He was able to complete minimal 1 UE support /min CGA for SL stance activities and unsupported / SBA with dynamic activities. He denied increased Sxs after session. Adult Risk Screening There are no spiritual/cultural practices/values/needs that are important to know Initial Fall Risk Screening: SAE has fallen in the last 6 months. He has fallen due to ladder broke. His fall resulted in the following injury: present injury. SAE has a fear of falling. He does not need assistance with sitting, standing or walking. Does not need assistance walking in his home. He does not need assistance in an unfamiliar setting. The patient is using an assistive device. Fall Risk Screening: Patient is identified as a fall risk. Care Plan: Moderate Risk: Low risk interventions plus: do not leave patient on exam table unattended, supervised activity, educate patient/family on falls prevention, review safety initiatives with patient/family, family at bedside as allowed, yellow falls risk band, focus rounding attention, locate patient in area of high visibility, wheelchair, bed, or personal alarm, bedside commode, elevated toilet seat and pharmacy consult for medication concerns. Pain Scale: On a scale of 0 to 10, the patient rates the pain at 0. Please identify location of pain: denies pain. Living Will. Living Will: Living will on file. Patient Declined. Healthcare POA: Health care proxy on file. Patient Declined. Declaration of Mental Health Treatment: No mental health treatment on file. Patient Declined. Insurance Insurance reviewed Visit number: 01/30 [facility] 30 PT/OT 25$ copay Evaluating therapist Kalin Clancy PT. S72.8X2D; M25.562 mod fall risk Subjective Patient reports:. He reports reciprocal stair negotiation now and notes tightness at lateral aspect of L hipo. He denies pain. Precautions: Fall Risk: moderate Pertinent medical HX includes: mid prostate CA management; V-tach. Treatment Time in clinic started at 4:17 pm Time in clinic ended at 5:06 pm Total time in clinic is 49 minutes. Total timed code time is 46 minutes. Therapeutic exercise (03491): timed minutes 46, units 3 . Sci-fit L2 /Nu Step L3 7mins HEP: rollar bar massage and stretching hams gastroc IT band for HEP (N) ON Turf Field : Airerx Balance Beam HR/TR 15x (N) 24 sport step D/L Squats 10x (N) 30 sport step Pistol squat 10x (N) 3 point star with heel taps 10x (N) Sports Cord [address] gait 3x each direction (N) Lunges on BOSU Fwd 10x each (N) L SLR 3 x10 3# P hooklying clamshell 2x15 blk/chetna P bridging 3 x10 5 hold P Hooklying Hip add x15 3? hold X RSL L hip abd 2x15 P HS curl LLE 2x10 Blue TBand P stdg TKE 2x15 blk P stdg hip abd 2x10 ea stdg L hip abd peach 2x10 stdg lunge 2x10 ea stdg march 2x15 ea P uni leg press 85# LLE 3x10 P wt R lateral steps with SC (two cord) 3x10 (P) Tandem gait at //bars x2 laps NOT TODAY Step ups 6 step 2x10 L leading X Standing hip extension 2x10 Bilat X Hooklying marches Green TBand 2x10 X active L heel slide x10 3 count hold X Weight shifts lat/fwd X Standing heel raises 2 x 10 X LAQ 2 x 10 X SAQ 2 x 10 X . 'Scores and Scales' Signatures Electronically signed by : Melissa Ingram, REAGENT TENDER; Nov 15 2022 5:13PM EST (Author) Electronically signed by : Ellis Clancy, PT; Nov 16 2022 8:36AM EST Normal [facility] PT Progress Noteon 3 PT Progress Note Therapy Diagnosis Assessed Acute pain of left hip (719.45) (M25.552) Other fracture of left femur, subsequent encounter for closed fracture with routine healing (V54.15) (S72.8X2D) Plan Goals: Goals set and discussed today. 1. Independent HEP to allow for 50% reduction in max ADL C/C sx ( /10) 2-3wks 2. Survey score improvement from 44/80 to 55/80 (LEFS) 3-4wks 3. ROM increase to allow for improved ADL dressing lowers, car transfers (from 130 to 135 L knee flexion) 4-6wks 4. Strength increase to allow for improved ADL STS, gait on F/S (from gr4 to gr4+ L knee flex/ext) 4-6wks 5. Strength increase to allow for improved ADL STS, gait on F/S (from gr4- to gr4+ L hip) 4-6wks Planned interventions include: aquatic therapy, cryotherapy, education/instruction, gait training, home program, kinesiotaping, manual therapy, neuromuscular re-education, self care/home management and therapeutic exercises. Frequency and duration: 2 time(s) a week, for 6 weeks, for 12 visits. Potential to achieve rehab goals is excellent continue with addt'l closed chain activity as taina. Assessment Good tolerance with increased reps/resistance this date. Minimal sx.'s needed with form. Quick fatigue noted with SLR's. Response to treatment: improved strength. Patient was able to complete today's treatment with some difficulty. Adult Risk Screening There are no spiritual/cultural practices/values/needs that are important to know Initial Fall Risk Screening: SAE has fallen in the last 6 months. He has fallen due to ladder broke. His fall resulted in the following injury: present injury. SAE has a fear of falling. He does not need assistance with sitting, standing or walking. Does not need assistance walking in his home. He does not need assistance in an unfamiliar setting. The patient is using an assistive device. Fall Risk Screening: Patient is identified as a fall risk. Care Plan: Moderate Risk: Low risk interventions plus: do not leave patient on exam table unattended, supervised activity, educate patient/family on falls prevention, review safety initiatives with patient/family, family at bedside as allowed, yellow falls risk band, focus rounding attention, locate patient in area of high visibility, wheelchair, bed, or personal alarm, bedside commode, elevated toilet seat and pharmacy consult for medication concerns. Please identify location of pain: L femur. Living Will. Living Will: Living will on file. Patient Declined. Healthcare POA: Health care proxy on file. Patient Declined. Declaration of Mental Health Treatment: No mental health treatment on file. Patient Declined. Insurance Insurance reviewed Visit number: 10 [facility] 30 PT/OT 25$ copay Evaluating therapist Kalin Clancy PT. S72.8X2D; M25.562 mod fall risk Subjective Patient reports:. Pt. confirmed name and birthday. Pt. has no c/o pain with left leg. No issues with stairs or sleeping at night. Home program performing as directed: Yes. Precautions: Fall Risk: moderate Pertinent medical HX includes: mid prostate CA management; V-tach. Treatment Time in clinic started at 10:00 am Time in clinic ended at 10:41 am Total time in clinic is 41 minutes. Total timed code time is 39 minutes. Therapeutic exercise (27020): timed minutes 39, units 3 . Sci-fit 7' Lv 2 nu step 5' lv 1 X L SLR 3 x10 3# P hooklying clamshell 2x15 blk/chetna P bridging 3 x10 5 hold P Hooklying Hip add x15 3? hold X RSL L hip abd 2x15 P HS curl LLE 2x10 Blue TBand P stdg TKE 2x15 blk P stdg hip abd 2x10 ea stdg L hip abd peach 2x10 stdg lunge 2x10 ea stdg march 2x15 ea P uni leg press 85# LLE 3x10 P wt R lateral steps with SC (two cord) 3x10 (P) Tandem gait at //bars x2 laps (N) NOT TODAY Step ups 6 step 2x10 L leading X Standing hip extension 2x10 Bilat X Hooklying marches Green TBand 2x10 X active L heel slide x10 3 count hold X Weight shifts lat/fwd X Standing heel raises 2 x 10 X LAQ 2 x 10 X SAQ 2 x 10 X . 'Scores and Scales' Signatures Electronically signed by : Dinorah Addison REAGENT TENDER; Nov 11 2022 10:41AM EST (Author) Electronically signed by : Ellis Clancy, PT; Nov 11 2022 11:29AM EST Normal [facility] 11-08-2022 YIN Telephone ([id number]) ----- SAE KAPADIA ([id number]) 1960 M Date Time Provider Department 11/08/22 JOHNSON ZAVALA [id number] During your visit today, we recorded the following information about you: Maite Mac 11/08/2022 10:31 AM Signed ----- Message from Maricruz Regan sent at 11/07/2022 8:36 AM EDT ----- Regarding: Orthopedics/DiNicola/ Reschedule Post Op -Left Femur Orthopedics/DiNicola/ Reschedule Post Op -Left Femur Patient has been identified by name and Date of (Y/N): Y Patient: Sae Kapadia Date of : 1960 Previous Provider Seen: Noreen Body Part(s) Identified: Left Femur Diagnosis/Reason For Visit: Post Op Reason for the call/escalation: Pt's requesting to reschedule to 12/02 or 12/05 because she is off on those days. She as to work on 12/01/22. If reason for call/escalation is discharge from ED/ER or Hospital, which facility was the patient seen at: na Was an appointment scheduled (Y/N): N-post op sx 08/29/22 Person calling if other than patient: Gee Conn Return call to if other than patient: senia mccracken Best contact number: [phone] Thank you, Maricruz Regan November 07, 2022 8:37 AM Maite Mac 11/08/2022 10:33 AM Signed Called and spoke with the patient's and got the patient's appointment rescheduled for the first appointment of the day per the patient's 's request due to her work schedule. Maite Mac November 08, 2022 10:33 AM Allergies As of Date: 11/08/2022 (No Known Allergies) Date Reviewed: 10/20/2022 Reviewed by: Imelda Loving LPN - Fully Assessed Reason for Visit: Appointment [[id number]] Prescriptions as of 11/08/2022 - FOLDING WALKER WITH 5 WHEELS 2 wheeled walker - ropinirole HCl (REQUIP ORAL) Take 0.5 mg by mouth twice daily. - rosuvastatin (CRESTOR) 10 mg tablet Take 10 mg by mouth once daily. - losartan (COZAAR) 50 mg tablet Take 50 mg by mouth once daily. - abiraterone 250 mg tablet Take 1,000 mg by mouth once daily. 250 mg x 4 tabs daily - predniSONE (DELTASONE) 5 mg tablet Take 5 mg by mouth once daily. 1 hour after abiraterone dose - venlafaxine (EFFEXOR) 37.5 mg tablet Take 37.5 mg by mouth once daily. - leuprolide acetate (LUPRON DEPOT INTRAMUSC.) Inject intramuscularly. - zoledronic acid (ZOMETA INTRAVENOUS) Inject intravenously. - NAPROXEN 500 MG TAB Take one(1) tablet twice daily as needed for pain, with food. Problem List As Of Date 11/08/2022 Noted Resolved LACERATION -NOT COMPLICATED FINGER(S) [S61.209A]11/06/2006 JOINT PAIN-ANKLE [M25.579] 06/01/2007 Subtrochanteric fracture of left femur, closed,*08/28/2022 09/01/2022 Hypertension [I10] 08/29/2022 Cancer (HCC) [C80.1] 08/29/2022 Encounter Status:Closed by MAITE MAC on 11/08/22 Normal [facility] PT Progress Noteon 3 PT Progress Note No report was sent Normal [facility] PT Progress Noteon 3 PT Progress Note Therapy Diagnosis Assessed Acute pain of left hip (719.45) (M25.552) Other fracture of left femur, subsequent encounter for closed fracture with routine healing (V54.15) (S72.8X2D) Plan Goals: Goals set and discussed today. 1. Independent HEP to allow for 50% reduction in max ADL C/C sx ( 09/26) 2-3wks 2. Survey score improvement from 44/80 to 55/80 (LEFS) 3-4wks 3. ROM increase to allow for improved ADL dressing lowers, car transfers (from 130 to 135 L knee flexion) 4-6wks 4. Strength increase to allow for improved ADL STS, gait on F/S (from gr4 to gr4+ L knee flex/ext) 4-6wks 5. Strength increase to allow for improved ADL STS, gait on F/S (from gr4- to gr4+ L hip) 4-6wks Planned interventions include: aquatic therapy, cryotherapy, education/instruction, gait training, home program, kinesiotaping, manual therapy, neuromuscular re-education, self care/home management and therapeutic exercises. Frequency and duration: 2 time(s) a week, for 6 weeks, for 12 visits. Potential to achieve rehab goals is excellent continue with addt'l closed chain activity as taina. Assessment Patient identity confirmed today with name/. the patient arrived with R cane; better smoothness with marching tri (without cane) and increased volume with most closed chain activities today; the patient acknowledges that closed chain progress is slow. Response to treatment: no change in pain and improved knowledge and understanding of condition. Patient was able to complete today's treatment with ease. Adult Risk Screening There are no spiritual/cultural practices/values/needs that are important to know Initial Fall Risk Screening: SAE has fallen in the last 6 months. He has fallen due to ladder broke. His fall resulted in the following injury: present injury. SAE has a fear of falling. He does not need assistance with sitting, standing or walking. Does not need assistance walking in his home. He does not need assistance in an unfamiliar setting. The patient is using an assistive device. Fall Risk Screening: Patient is identified as a fall risk. Care Plan: Moderate Risk: Low risk interventions plus: do not leave patient on exam table unattended, supervised activity, educate patient/family on falls prevention, review safety initiatives with patient/family, family at bedside as allowed, yellow falls risk band, focus rounding attention, locate patient in area of high visibility, wheelchair, bed, or personal alarm, bedside commode, elevated toilet seat and pharmacy consult for medication concerns. Please identify location of pain: L femur. Living Will. Living Will: Living will on file. Patient Declined. Healthcare POA: Health care proxy on file. Patient Declined. Declaration of Mental Health Treatment: No mental health treatment on file. Patient Declined. Insurance Insurance reviewed Visit number: 9 [facility] 30 PT/OT 25$ copay Evaluating therapist Kalin Clancy PT. S72.8X2D; M25.562 mod fall risk Subjective Patient reports:. 04/29 pain right now. Precautions: Fall Risk: moderate Pertinent medical HX includes: mid prostate CA management; V-tach. Treatment Time in clinic started at 1:16 pm Time in clinic ended at 1:55 pm Total time in clinic is 40 minutes. Total timed code time is 39 minutes. Therapeutic exercise (11027): timed minutes 39, units 3 . Sci-fit 7' Lv 2 P nu step 5' lv 1 X L SLR 2x10 3# P hooklying clamshell 2x10 blk/chetna P bridging 2x10 Hooklying Hip add x15 3? hold X RSL L hip abd 2x10 HS curl LLE 2x10 Green TBand (manual today) stdg TKE 2x10 blk stdg squat 2x10 X stdg hip abd 2x10 ea stdg L hip abd peach 2x10 N stdg lunge 2x10 ea stdg march 2x10 ea uni leg press 70# LLE 3x10 P R lateral steps with SC (one cord) 3x10 NOT TODAY Step ups 6 step 2x10 L leading X Standing hip extension 2x10 Bilat X Hooklying marches Green TBand 2x10 X active L heel slide x10 3 count hold X Weight shifts lat/fwd X Standing heel raises 2 x 10 X LAQ 2 x 10 X SAQ 2 x 10 X . 'Scores and Scales' Signatures Electronically signed by : Ellis Clancy, PT; Nov 04 2022 1:57PM EST (Author) Normal [facility] PT Progress Noteon 3 PT Progress Note Therapy Diagnosis Assessed Other fracture of left femur, subsequent encounter for closed fracture with routine healing (V54.15) (S72.8X2D) Acute pain of left hip (719.45) (M25.552) Plan Goals: Goals set and discussed today. 1. Independent HEP to allow for 50% reduction in max ADL C/C sx ( 09/26) 2-3wks 2. Survey score improvement from 44/80 to 55/80 (LEFS) 3-4wks 3. ROM increase to allow for improved ADL dressing lowers, car transfers (from 130 to 135 L knee flexion) 4-6wks 4. Strength increase to allow for improved ADL STS, gait on F/S (from gr4 to gr4+ L knee flex/ext) 4-6wks 5. Strength increase to allow for improved ADL STS, gait on F/S (from gr4- to gr4+ L hip) 4-6wks Planned interventions include: aquatic therapy, cryotherapy, education/instruction, gait training, home program, kinesiotaping, manual therapy, neuromuscular re-education, self care/home management and therapeutic exercises. Frequency and duration: 2 time(s) a week, for 6 weeks, for 12 visits. Potential to achieve rehab goals is excellent continue with addt'l closed chain activity as taina. Assessment Challenged with ex's listed above secondary to weakness in LLE, but patient denies increase in soreness throughout session and tolerated all well. Good compliance with HEP, per patient and . Response to treatment: no change in pain and improved knowledge and understanding of condition. Patient was able to complete today's treatment with ease. Adult Risk Screening There are no spiritual/cultural practices/values/needs that are important to know Initial Fall Risk Screening: SAE has fallen in the last 6 months. He has fallen due to ladder broke. His fall resulted in the following injury: present injury. SAE has a fear of falling. He does not need assistance with sitting, standing or walking. Does not need assistance walking in his home. He does not need assistance in an unfamiliar setting. The patient is using an assistive device. Fall Risk Screening: Patient is identified as a fall risk. Care Plan: Moderate Risk: Low risk interventions plus: do not leave patient on exam table unattended, supervised activity, educate patient/family on falls prevention, review safety initiatives with patient/family, family at bedside as allowed, yellow falls risk band, focus rounding attention, locate patient in area of high visibility, wheelchair, bed, or personal alarm, bedside commode, elevated toilet seat and pharmacy consult for medication concerns. Please identify location of pain: L femur. Living Will. Living Will: Living will on file. Patient Declined. Healthcare POA: Health care proxy on file. Patient Declined. Declaration of Mental Health Treatment: No mental health treatment on file. Patient Declined. Insurance Insurance reviewed Visit number: 8 [facility] 30 PT/OT 25$ copay Evaluating therapist Kalin Clancy PT. S72.8X2D; M25.562 mod fall risk Subjective Patient reports:. Doing pretty good and not hurting very much. Still getting some weakness in the left leg. Precautions: Fall Risk: moderate Pertinent medical HX includes: mid prostate CA management; V-tach. Treatment Time in clinic started at 0916 Time in clinic ended at 0949 Total time in clinic is 33 minutes. Total timed code time is 31 minutes. Therapeutic exercise (15408): timed minutes 31, units 2 . Sci-fit 6' nu step 5' lv 1 X L SLR 2x10 2.5# hooklying clamshell 2x10 blk bridging 2x10 Hooklying Hip add x15 3? hold RSL L hip abd 2x10 N HS curl LLE 2x10 Green TBand stdg TKE 2x10 blk stdg squat 2x10 X stdg hip abd 2x10 ea stdg lunge 2x10 ea stdg march 2x10 ea uni leg press 55# LLE x10 P R lateral steps with SC (one cord) 2x10 NOT TODAY Step ups 6 step 2x10 L leading X Standing hip extension 2x10 Bilat X Hooklying marches Green TBand 2x10 X active L heel slide x10 3 count hold X Weight shifts lat/fwd X Standing heel raises 2 x 10 X LAQ 2 x 10 X SAQ 2 x 10 X . Provided today:. HEP handout. 'Scores and Scales' Signatures Electronically signed by : Angel Chau REAGENT TENDER; Oct 31 2022 9:52AM EST (Author) Electronically signed by : Ellis Clancy PT; Oct 31 2022 4:51PM EST Normal [facility] PT Progress Noteon 3 PT Progress Note Therapy Diagnosis Assessed Other fracture of left femur, subsequent encounter for closed fracture with routine healing (V54.15) (S72.8X2D) Acute pain of left hip (719.45) (M25.552) Plan Goals: Goals set and discussed today. 1. Independent HEP to allow for 50% reduction in max ADL C/C sx ( 09/26) 2-3wks 2. Survey score improvement from 44/80 to 55/80 (LEFS) 3-4wks 3. ROM increase to allow for improved ADL dressing lowers, car transfers (from 130 to 135 L knee flexion) 4-6wks 4. Strength increase to allow for improved ADL STS, gait on F/S (from gr4 to gr4+ L knee flex/ext) 4-6wks 5. Strength increase to allow for improved ADL STS, gait on F/S (from gr4- to gr4+ L hip) 4-6wks Planned interventions include: aquatic therapy, cryotherapy, education/instruction, gait training, home program, kinesiotaping, manual therapy, neuromuscular re-education, self care/home management and therapeutic exercises. Frequency and duration: 2 time(s) a week, for 6 weeks, for 12 visits. Potential to achieve rehab goals is excellent continue with addt'l closed chain activity as taina. Assessment Patient identity confirmed today with name/. still with cane during ambulation into clinic; added to HEP and given handout-the RSL L hip abd was difficult for the patient; able to perform marching without R cane today (still with reduced L stance and mild L ipsi trunk lean); able to complete session (with progressions and extra exercise) more quickly today. Adult Risk Screening There are no spiritual/cultural practices/values/needs that are important to know Initial Fall Risk Screening: SAE has fallen in the last 6 months. He has fallen due to ladder broke. His fall resulted in the following injury: present injury. SAE has a fear of falling. He does not need assistance with sitting, standing or walking. Does not need assistance walking in his home. He does not need assistance in an unfamiliar setting. The patient is using an assistive device. Fall Risk Screening: Patient is identified as a fall risk. Care Plan: Moderate Risk: Low risk interventions plus: do not leave patient on exam table unattended, supervised activity, educate patient/family on falls prevention, review safety initiatives with patient/family, family at bedside as allowed, yellow falls risk band, focus rounding attention, locate patient in area of high visibility, wheelchair, bed, or personal alarm, bedside commode, elevated toilet seat and pharmacy consult for medication concerns. Please identify location of pain: L femur. Living Will. Living Will: Living will on file. Patient Declined. Healthcare POA: Health care proxy on file. Patient Declined. Declaration of Mental Health Treatment: No mental health treatment on file. Patient Declined. Insurance Insurance reviewed Visit number: 7 [facility] 30 PT/OT 25$ copay Evaluating therapist Kalin Clancy PT. S72.8X2D; M25.562 mod fall risk Subjective Patient reports:. 04/29 pain right now. Precautions: Fall Risk: moderate Pertinent medical HX includes: mid prostate CA management; V-tach. Treatment Time in clinic started at 4:06 pm Time in clinic ended at 4:38 pm Total time in clinic is 32 minutes. Therapeutic exercise (07920): timed minutes 31, units 2 . Sci-fit 6' (P, time) nu step 5' lv 1 X L SLR 2x10 2.5# P hooklying clamshell 2x10 blk bridging 2x10 Hooklying Hip add x15 3? hold RSL L hip abd 2x10 N HS curl LLE 2x10 Green TBand ( manual today) stdg TKE 2x10 blk stdg squat 2x10 X stdg hip abd 2x10 ea stdg lunge 2x10 ea stdg march 2x10 ea uni leg press 55# LLE x10 P R lateral steps with SC (one cord) 2x10 P NOT TODAY Step ups 6 step 2x10 L leading X Standing hip extension 2x10 Bilat X Hooklying marches Green TBand 2x10 X active L heel slide x10 3 count hold X Weight shifts lat/fwd X Standing heel raises 2 x 10 X LAQ 2 x 10 X SAQ 2 x 10 X . Provided today:. HEP handout. 'Scores and Scales' Signatures Electronically signed by : Ellis Clancy, PT; Oct 28 2022 4:50PM EST (Author) Normal [facility] PT Progress Noteon 3 PT Progress Note Therapy Diagnosis Assessed Acute pain of left hip (719.45) (M25.552) Other fracture of left femur, subsequent encounter for closed fracture with routine healing (V54.15) (S72.8X2D) Plan Goals: Goals set and discussed today. 1. Independent HEP to allow for 50% reduction in max ADL C/C sx ( 09/26) 2-3wks 2. Survey score improvement from 44/80 to 55/80 (LEFS) 3-4wks 3. ROM increase to allow for improved ADL dressing lowers, car transfers (from 130 to 135 L knee flexion) 4-6wks 4. Strength increase to allow for improved ADL STS, gait on F/S (from gr4 to gr4+ L knee flex/ext) 4-6wks 5. Strength increase to allow for improved ADL STS, gait on F/S (from gr4- to gr4+ L hip) 4-6wks Planned interventions include: aquatic therapy, cryotherapy, education/instruction, gait training, home program, kinesiotaping, manual therapy, neuromuscular re-education, self care/home management and therapeutic exercises. Frequency and duration: 2 time(s) a week, for 6 weeks, for 12 visits. 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 Assessment Patient identity confirmed today with name/. the patient entered with one R cane today (I use it mostly for balance), L hip weakness still precludes smooth marching without R crutch; 2/10 discomfort upon sessions end today. Adult Risk Screening There are no spiritual/cultural practices/values/needs that are important to know Initial Fall Risk Screening: SAE has fallen in the last 6 months. He has fallen due to ladder broke. His fall resulted in the following injury: present injury. SAE has a fear of falling. He does not need assistance with sitting, standing or walking. Does not need assistance walking in his home. He does not need assistance in an unfamiliar setting. The patient is using an assistive device. Fall Risk Screening: Patient is identified as a fall risk. Care Plan: Moderate Risk: Low risk interventions plus: do not leave patient on exam table unattended, supervised activity, educate patient/family on falls prevention, review safety initiatives with patient/family, family at bedside as allowed, yellow falls risk band, focus rounding attention, locate patient in area of high visibility, wheelchair, bed, or personal alarm, bedside commode, elevated toilet seat and pharmacy consult for medication concerns. Please identify location of pain: L femur. Living Will. Living Will: Living will on file. Patient Declined. Healthcare POA: Health care proxy on file. Patient Declined. Declaration of Mental Health Treatment: No mental health treatment on file. Patient Declined. Insurance Insurance reviewed Visit number: 6 [facility] 30 PT/OT 25$ copay Evaluating therapist Kalin Clancy PT. S72.8X2D; M25.562 mod fall risk Subjective Patient reports:. No pain right now. Precautions: Fall Risk: moderate Pertinent medical HX includes: mid prostate CA management; V-tach. Treatment Time in clinic started at 9:16 am Time in clinic ended at 9:55 am Total time in clinic is 39 minutes. Total timed code time is 38 minutes. Therapeutic exercise (21583): timed minutes 40, units 3 . Sci-fit 6' (P, time) X nu step 5' lv 1 L SLR 2x10 2# P hooklying clamshell 2x10 blk bridging 2x10 Hooklying Hip add x15 3? hold stdg TKE 2x10 blk stdg squat 2x10 stdg hip abd 2x10 ea stdg lunge 2x10 ea stdg march 2x10 ea uni leg press 45# LLE x10 R lateral steps with SC (one cord) 2x5 HS curl LLE 2x10 Green TBand ( manual today) RSL L hip abd-A NOT TODAY Step ups 6 step 2x10 L leading X Standing hip extension 2x10 Bilat X Hooklying marches Green TBand 2x10 X active L heel slide x10 3 count hold X Weight shifts lat/fwd X Standing heel raises 2 x 10 X LAQ 2 x 10 X SAQ 2 x 10 X . Provided today:. Tbkevin. 'Scores and Scales' Signatures Electronically signed by : Ellis Clancy, PT; Oct 24 2022 9:58AM EST (Author) Normal [facility] PT Progress Noteon 3 PT Progress Note Therapy Diagnosis Assessed Acute pain of left hip (719.45) (M25.552) Other fracture of left femur, subsequent encounter for closed fracture with routine healing (V54.15) (S72.8X2D) Plan Goals: Goals set and discussed today. 1. Independent HEP to allow for 50% reduction in max ADL C/C sx ( 09/26) 2-3wks 2. Survey score improvement from 44/80 to 55/80 (LEFS) 3-4wks 3. ROM increase to allow for improved ADL dressing lowers, car transfers (from 130 to 135 L knee flexion) 4-6wks 4. Strength increase to allow for improved ADL STS, gait on F/S (from gr4 to gr4+ L knee flex/ext) 4-6wks 5. Strength increase to allow for improved ADL STS, gait on F/S (from gr4- to gr4+ L hip) 4-6wks Planned interventions include: aquatic therapy, cryotherapy, education/instruction, gait training, home program, kinesiotaping, manual therapy, neuromuscular re-education, self care/home management and therapeutic exercises. Frequency and duration: 2 time(s) a week, for 6 weeks, for 12 visits. 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 Assessment Patient identity confirmed today with name/. the patient entered with one R crutch (I use it mostly for balance), L hip weakness still precludes smooth marching without R crutch. Adult Risk Screening There are no spiritual/cultural practices/values/needs that are important to know Initial Fall Risk Screening: SAE has fallen in the last 6 months. He has fallen due to ladder broke. His fall resulted in the following injury: present injury. SAE has a fear of falling. He does not need assistance with sitting, standing or walking. Does not need assistance walking in his home. He does not need assistance in an unfamiliar setting. The patient is using an assistive device. Fall Risk Screening: Patient is identified as a fall risk. Care Plan: Moderate Risk: Low risk interventions plus: do not leave patient on exam table unattended, supervised activity, educate patient/family on falls prevention, review safety initiatives with patient/family, family at bedside as allowed, yellow falls risk band, focus rounding attention, locate patient in area of high visibility, wheelchair, bed, or personal alarm, bedside commode, elevated toilet seat and pharmacy consult for medication concerns. Please identify location of pain: L femur. Living Will. Living Will: Living will on file. Patient Declined. Healthcare POA: Health care proxy on file. Patient Declined. Declaration of Mental Health Treatment: No mental health treatment on file. Patient Declined. Insurance Insurance reviewed Visit number: 5 [facility] 30 PT/OT 25$ copay Evaluating therapist Kalin Clancy PT. S72.8X2D; M25.562 mod fall risk Subjective Patient reports:. The surgeon said it was coming along well (saw the Dr manzanares). Precautions: Fall Risk: moderate Pertinent medical HX includes: mid prostate CA management; V-tach. Treatment Time in clinic started at 9:05 am Time in clinic ended at 9:46 am Total time in clinic is 41 minutes. Total timed code time is 40 minutes. Therapeutic exercise (43630): timed minutes 40, units 3 . Sci-fit 6' (P, time) L SLR 2x10 hooklying clamshell 2x10 bridging 2x10 Hooklying Hip add x15 3? hold Hooklying marches Green TBand 2x10 X active L heel slide x10 3 count hold X stdg TKE 2x10 blk P stdg squat 2x10 stdg hip abd 2x10 ea stdg lunge 2x10 ea P stdg march 2x10 ea P uni leg press 45# LLE x10 R lateral steps with SC (one cord) 2x5 HS curl LLE x15 Green TBand ( manual today) Step ups 6 step 2x10 L leading X Standing hip extension 2x10 Bilat X NOT TODAY Weight shifts lat/fwd X Standing heel raises 2 x 10 X LAQ 2 x 10 X SAQ 2 x 10 X . Provided today:. Tband. 'Scores and Scales' Signatures Electronically signed by : Ellis Clancy PT; Oct 21 2022 9:47AM EST (Author) [facility] 10-20-2022 CNOV Office Visit ([id number] ) ----- SAE KAPADIA ([id number]) 1960 M Date Time Provider Department 10/20/22 10:45 AM JOHNSON ZAVALA [facility] During your visit today, we recorded the following information about you: Respiration Weight Height 18/minute 88 kg 1.88 m Johnson Zavala MD 10/20/2022 10:48 AM Signed ORTHOPAEDIC OFFICE NOTE CHIEF COMPLAINT: Left hip injury HISTORY OF PRESENT ILLNESS: Sae Kapadia is a 62 year old male who presents for reevaluation after intramedullary nail placement left femur for subtrochanteric fracture 08/29/2022. He has been weightbearing as tolerated on the left lower extremity, typically with a single crutch assist. Performing outpatient therapy after completion of in-home therapy. Notes minimal pain in the left hip and has been functionally progressing very well. No new injury mechanisms. No new chest pain or shortness of breath. No new fevers chills nausea or vomiting. Accompanied by . Reviewed nursing note and current pain scale. PAST MEDICAL HISTORY Diagnosis Date Cancer (HCC) Hyperlipemia Hypertension Mitral valve disorders(424.0) History reviewed. No pertinent surgical history. FAMILY HISTORY Problem Relation Age of Onset Hypertension Mother Hypertension Father Hypertension Sister Hypertension Brother Cancer Paternal Grandmother other (ANURYSM [Other]) Maternal Grandmother Heart Maternal Grandfather Prostate Cancer Father Social History Tobacco Use Smoking status: Never Smokeless tobacco: Never Substance Use Topics Alcohol use: Yes Comment: OCCASSIONAL SOCIALLY Drug use: No MEDICATIONS: Current Outpatient Medications Medication Sig FOLDING WALKER WITH 5 WHEELS 2 wheeled walker ropinirole HCl (REQUIP ORAL) Take 0.5 mg by mouth twice daily. rosuvastatin (CRESTOR) 10 mg tablet Take 10 mg by mouth once daily. losartan (COZAAR) 50 mg tablet Take 50 mg by mouth once daily. abiraterone 250 mg tablet Take 1,000 mg by mouth once daily. 250 mg x 4 tabs daily predniSONE (DELTASONE) 5 mg tablet Take 5 mg by mouth once daily. 1 hour after abiraterone dose venlafaxine (EFFEXOR) 37.5 mg tablet Take 37.5 mg by mouth once daily. leuprolide acetate (LUPRON DEPOT INTRAMUSC.) Inject intramuscularly. zoledronic acid (ZOMETA INTRAVENOUS) Inject intravenously. NAPROXEN 500 MG TAB Take one(1) tablet twice daily as needed for pain, with food. No current facility-administered medications for this visit. ALLERGIES: ALLERGIES No Known Allergies PHYSICAL EXAMINATION: Resp 18 Ht 6' 2 (1.88m) Wt 194 lb (88.0kg) BMI 24.90 kg/(m2). General Appearance: Well appearing, alert, in no acute distress, well-hydrated, well nourished. Skin: Skin color, texture, turgor normal, no suspicious rashes or lesions. Extremities: Left hip with no new deformity. Left thigh and leg compartments soft and compressible. No pain with passive left hip internal and external rotation, with smooth arc of motion. No pain with axial load. Ambulates with mild limp left side. Peripheral Pulses: Normal. Neurologic: Intact light touch sensation left lower extremity. IMAGES: Recent Results (from the past 36 hour(s)) XR FEMUR GENERAL 2V AP/LAT LEFT Narrative AP and lateral views left femur demonstrate no change in position of the intramedullary implant stabilizing the subtrochanteric femur fracture. There is evidence of early bone formation both medially and laterally about the traumatic stress fracture region. Alignment remains appropriate. No new fracture identified. ASSESSMENT AND PLAN: 1. Closed displaced subtrochanteric fracture of left femur with routine healing, subsequent encounter - ICD9: V54.13, ICD10: S72.22XD Functional Plan: No restrictions with weightbearing or range of motion left lower extremity. Assistance Devices: May wean crutch as tolerated. Physical/Occupational Therapy: Ongoing outpatient therapy. Wound Care: None. Pain Control: No change in pain regimen recommended this office visit. Fragility Fracture: Previously addressed. Additional: None. Return in about 6 weeks (around 12/01/2022). Johnson Zavala MD Allergies As of Date: 10/20/2022 (No Known Allergies) Date Reviewed: 10/20/2022 Reviewed by: Imelda Loving LPN - Fully Assessed Reason for Visit: Established Patient [175] Follow Up [171] Pain [78] Post Op [174] Primary Visit Diagnosis:Closed displaced subtrochanteric fracture of left femur with routine healing, subsequent encounter [S72.22XD] Order(s):XR FEMUR GENERAL 2V AP/LAT LEFT [[id number]] Order #: [id number] Prescriptions as of 10/20/2022 - FOLDING WALKER WITH 5 WHEELS 2 wheeled walker - ropinirole HCl (REQUIP ORAL) Take 0.5 mg by mouth twice daily. - rosuvastatin (CRESTOR) 10 mg tablet Take 10 mg by mouth once daily. - losartan (COZAAR) 50 mg tablet Take 50 mg by mouth once (more content not included)... Normal [facility] PT Progress Noteon 3 PT Progress Note Therapy Diagnosis Assessed Other fracture of left femur, subsequent encounter for closed fracture with routine healing (V54.15) (S72.8X2D) Acute pain of left hip (719.45) (M25.552) Plan Goals: Goals set and discussed today. 1. Independent HEP to allow for 50% reduction in max ADL C/C sx ( /10) 2-3wks 2. Survey score improvement from 44/80 to 55/80 (LEFS) 3-4wks 3. ROM increase to allow for improved ADL dressing lowers, car transfers (from 130 to 135 L knee flexion) 4-6wks 4. Strength increase to allow for improved ADL STS, gait on F/S (from gr4 to gr4+ L knee flex/ext) 4-6wks 5. Strength increase to allow for improved ADL STS, gait on F/S (from gr4- to gr4+ L hip) 4-6wks Planned interventions include: aquatic therapy, cryotherapy, education/instruction, gait training, home program, kinesiotaping, manual therapy, neuromuscular re-education, self care/home management and therapeutic exercises. Frequency and duration: 2 time(s) a week, for 6 weeks, for 12 visits. 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 -AB. Assessment Patient identified by name and Able to progress PRE's with no c/o increased symptoms. Requires verbal cues to keep heels on ground with squats this date with patient demo'g good understanding. Adult Risk Screening There are no spiritual/cultural practices/values/needs that are important to know Initial Fall Risk Screening: SAE has fallen in the last 6 months. He has fallen due to ladder broke. His fall resulted in the following injury: present injury. SAE has a fear of falling. He does not need assistance with sitting, standing or walking. Does not need assistance walking in his home. He does not need assistance in an unfamiliar setting. The patient is using an assistive device. Fall Risk Screening: Patient is identified as a fall risk. Care Plan: Moderate Risk: Low risk interventions plus: do not leave patient on exam table unattended, supervised activity, educate patient/family on falls prevention, review safety initiatives with patient/family, family at bedside as allowed, yellow falls risk band, focus rounding attention, locate patient in area of high visibility, wheelchair, bed, or personal alarm, bedside commode, elevated toilet seat and pharmacy consult for medication concerns. Please identify location of pain: L femur. Living Will. Living Will: Living will on file. Patient Declined. Healthcare POA: Health care proxy on file. Patient Declined. Declaration of Mental Health Treatment: No mental health treatment on file. Patient Declined. Insurance Insurance reviewed Visit number: 4 [facility] 30 PT/OT 25$ copay Evaluating therapist Kalin Clancy PT. S72.8X2D; M25.562 mod fall risk Subjective Patient reports:. Patient states that he's not currently having pain. States that he feels like he has made improvements the last 10 days, and states that he feels like he is getting stronger. States that he normally walks with one crutch, but brought 2 into the clinic today d/t being fatigued at the end of the last session. Precautions: Fall Risk: moderate Pertinent medical HX includes: mid prostate CA management; V-tach. Treatment Time in clinic started at 330 pm Time in clinic ended at 411 pm Total time in clinic is 41 minutes. Total timed code time is 39 minutes. Therapeutic exercise (74240): timed minutes 39, units 3 . Sci-fit 6' (P, time) L SLR 2x10 hooklying clamshell 2x10 green bridging 2x10 Hooklying Hip add x15 3? hold (P, reps) Hooklying marches Green TBand 2x10 (N) active L heel slide x10 3 count hold N stdg TKE 2x10 chetna stdg squat 2x10 stdg hip abd 2x10 ea stdg lunge x10 ea stdg march x10 ea uni leg press 40# LLE x10 (N) HS curl LLE x15 Green TBand (N) Step ups 6 step 2x10 L leading (N) Standing hip extension 2x10 Bilat (N) NOT TODAY Weight shifts lat/fwd X Standing heel raises 2 x 10 X LAQ 2 x 10 X SAQ 2 x 10 X . 'Scores and Scales' Signatures Electronically signed by : Elodia Redding PTA; Oct 18 2022 4:34PM EST (Author) Electronically signed by : Ellis Clancy, PT; Oct 19 2022 2:05PM EST [facility] PT Progress Noteon 3 PT Progress Note Therapy Diagnosis Assessed Acute pain of left hip (719.45) (M25.552) Other fracture of left femur, subsequent encounter for closed fracture with routine healing (V54.15) (S72.8X2D) Plan Goals: Goals set and discussed today. 1. Independent HEP to allow for 50% reduction in max ADL C/C sx ( 09/26) 2-3wks 2. Survey score improvement from 44/80 to 55/80 (LEFS) 3-4wks 3. ROM increase to allow for improved ADL dressing lowers, car transfers (from 130 to 135 L knee flexion) 4-6wks 4. Strength increase to allow for improved ADL STS, gait on F/S (from gr4 to gr4+ L knee flex/ext) 4-6wks 5. Strength increase to allow for improved ADL STS, gait on F/S (from gr4- to gr4+ L hip) 4-6wks Planned interventions include: aquatic therapy, cryotherapy, education/instruction, gait training, home program, kinesiotaping, manual therapy, neuromuscular re-education, self care/home management and therapeutic exercises. Frequency and duration: 2 time(s) a week, for 6 weeks, for 12 visits. Potential to achieve rehab goals is excellent Continue with progression of strengthening and ROM as tolerated for increased strength and reduction of use of AD. ; monitor for exercise progression soreness; add uni leg press as taina. Progress with POC, as tolerated. Assessment Patient identity confirmed today with name/. ; x2 crutches entering the clinic today (using x1 crutch in his house); added to HEP and given handouts. Adult Risk Screening There are no spiritual/cultural practices/values/needs that are important to know Initial Fall Risk Screening: SAE has fallen in the last 6 months. He has fallen due to ladder broke. His fall resulted in the following injury: present injury. SAE has a fear of falling. He does not need assistance with sitting, standing or walking. Does not need assistance walking in his home. He does not need assistance in an unfamiliar setting. The patient is using an assistive device. Fall Risk Screening: Patient is identified as a fall risk. Care Plan: Moderate Risk: Low risk interventions plus: do not leave patient on exam table unattended, supervised activity, educate patient/family on falls prevention, review safety initiatives with patient/family, family at bedside as allowed, yellow falls risk band, focus rounding attention, locate patient in area of high visibility, wheelchair, bed, or personal alarm, bedside commode, elevated toilet seat and pharmacy consult for medication concerns. Please identify location of pain: L femur. Living Will. Living Will: Living will on file. Patient Declined. Healthcare POA: Health care proxy on file. Patient Declined. Declaration of Mental Health Treatment: No mental health treatment on file. Patient Declined. Insurance Insurance reviewed Visit number: [facility] 30 PT/OT 25$ copay Evaluating therapist Kalin Clancy PT. S72.8X2D; M25.562 mod fall risk Subjective Patient reports:. No pain right now. Precautions: Fall Risk: moderate Pertinent medical HX includes: mid prostate CA management; V-tach. Treatment Time in clinic started at 3;16 pm Time in clinic ended at 3:55 pm Total time in clinic is 40 minutes. Total timed code time is 39 minutes. Therapeutic exercise (42177): timed minutes 39, units 3 . Sci-fit 3' L SLR 2x10 hooklying clamshell 2x10 green bridgibng 2x10 Hooklying Hip add x10 3? hold active L heel slide x10 3 count hold N stdg TKE 2x10 chetna N stdg squat 2x10 stdg hip abd 2x10 ea stdg lunge x10 ea stdg march x10 ea uni leg press/-A NOT TODAY Weight shifts lat/fwd X Standing heel raises 2 x 10 X LAQ 2 x 10 X SAQ 2 x 10 X . 'Scores and Scales' Signatures Electronically signed by : Ellis Clancy, PT; Oct 14 2022 4:04PM EST (Author) Normal [facility] PT Progress Noteon 3 PT Progress Note Therapy Diagnosis Assessed Other fracture of left femur, subsequent encounter for closed fracture with routine healing (V54.15) (S72.8X2D) Acute pain of left hip (719.45) (M25.552) Plan Goals: Goals set and discussed today. 1. Independent HEP to allow for 50% reduction in max ADL C/C sx ( 09/26) 2-3wks 2. Survey score improvement from 44/80 to 55/80 (LEFS) 3-4wks 3. ROM increase to allow for improved ADL dressing lowers, car transfers (from 130 to 135 L knee flexion) 4-6wks 4. Strength increase to allow for improved ADL STS, gait on F/S (from gr4 to gr4+ L knee flex/ext) 4-6wks 5. Strength increase to allow for improved ADL STS, gait on F/S (from gr4- to gr4+ L hip) 4-6wks Planned interventions include: aquatic therapy, cryotherapy, education/instruction, gait training, home program, kinesiotaping, manual therapy, neuromuscular re-education, self care/home management and therapeutic exercises. Frequency and duration: 2 time(s) a week, for 6 weeks, for 12 visits. Potential to achieve rehab goals is excellent Continue with progression of strengthening and ROM as tolerated for increased strength and reduction of use of AD. Progress with POC, as tolerated. Assessment Patient identified by name and date of . Patient ambulated into clinic with axiliary crutches with WB as tolerated. He was able to progress with addition of weight shifts w/o increased pain after. He demonstrated good tolerance to exercises with quad fatigue noted. Adult Risk Screening There are no spiritual/cultural practices/values/needs that are important to know Initial Fall Risk Screening: SAE has fallen in the last 6 months. He has fallen due to ladder broke. His fall resulted in the following injury: present injury. SAE has a fear of falling. He does not need assistance with sitting, standing or walking. Does not need assistance walking in his home. He does not need assistance in an unfamiliar setting. The patient is using an assistive device. Fall Risk Screening: Patient is identified as a fall risk. Care Plan: Moderate Risk: Low risk interventions plus: do not leave patient on exam table unattended, supervised activity, educate patient/family on falls prevention, review safety initiatives with patient/family, family at bedside as allowed, yellow falls risk band, focus rounding attention, locate patient in area of high visibility, wheelchair, bed, or personal alarm, bedside commode, elevated toilet seat and pharmacy consult for medication concerns. Pain Scale: On a scale of 0 to 10, the patient rates the pain at 2. Please identify location of pain: L femur. Living Will. Living Will: Living will on file. Patient Declined. Healthcare POA: Health care proxy on file. Patient Declined. Declaration of Mental Health Treatment: No mental health treatment on file. Patient Declined. Insurance Insurance reviewed Visit number: 2 [facility] 30 PT/OT 25$ copay Evaluating therapist Kalin Clancy PT. S72.8X2D; M25.562 mod fall risk Subjective Patient reports:. Patient reported he experienced increased pain/soreness after his last appointment. He reported no change in Sx after treatment this date. Home program performing as directed: Yes. Precautions: Fall Risk: moderate Pertinent medical HX includes: mid prostate CA management; V-tach. Treatment Time in clinic started at 07:01 Time in clinic ended at 07:43 Total time in clinic is 42 minutes. Total timed code time is 40 minutes. Therapeutic exercise (01920): timed minutes 40, units 3 . Weight shifts lat/fwd Standing heel raises 2 x 10 Standing hip abd x10 Standing hip ext x10 Standing marching x10 LAQ 2 x 10 SAQ 2 x 10 3? SLR 2 x 10 Bridge 2 x10 Hooklying Hip abd 2 x 10 green Hooklying Hip add x10 3? hold . 'Scores and Scales' Signatures Electronically signed by : Swati Timmons REAGENT TENDER; Oct 10 2022 8:14AM EST (Author) Electronically signed by : Ellis Clancy, PT; Oct 10 2022 12:06PM EST Normal [facility] PT Initial Evaluationon 09-18 PT Initial Evaluation Therapy Diagnosis Assessed Other fracture of left femur, subsequent encounter for closed fracture with routine healing (V54.15) (S72.8X2D) Acute pain of left hip (719.45) (M25.552) Plan of Care Goals: Goals set and discussed today. 1. Independent HEP to allow for 50% reduction in max ADL C/C sx ( 09/26) 2-3wks 2. Survey score improvement from 44/80 to 55/80 (LEFS) 3-4wks 3. ROM increase to allow for improved ADL dressing lowers, car transfers (from 130 to 135 L knee flexion) 4-6wks 4. Strength increase to allow for improved ADL STS, gait on F/S (from gr4 to gr4+ L knee flex/ext) 4-6wks 5. Strength increase to allow for improved ADL STS, gait on F/S (from gr4- to gr4+ L hip) 4-6wks Planned interventions include: aquatic therapy, cryotherapy, education/instruction, gait training, home program, kinesiotaping, manual therapy, neuromuscular re-education, self care/home management and therapeutic exercises. Frequency and duration: 2 time(s) a week, for 6 weeks, for 12 visits. Potential to achieve rehab goals is excellent Plan of care was developed with input and agreement by the patient. Assessment S/P fall and FX L femur 08/28. ORIF performed 08/29. [facility] for 1mth following. Per patient he is WBAT without any known specific limitations. He entered with 2 crutches today. He will be a moderate fall risk. Physical findings include limited hip and knee motion and strength. Continue with open to closed chain hip/knee ROM/PRE and gait/balance work as taina. There was an audible click/pop with L hip abd MMT followed by mild local discomfort that past with 3'. The patient was advised to contact the Dr if discomfort resurfaces at that area later today. Clinical Presentation: Stable and/or uncomplicated characteristics. Level of Complexity: low Problem List: activity limitations, ADLs/IADLs/self care skills, balance, decreased functional level, decreased knowledge of HEP, decreased knowledge of precautions, fall risk, gait/locomotion, pain, range of motion/joint mobility, strength and transfers. Reason For Visit Initial Evaluation . S/P ORIF L femur. Referred by: Mehdi Adult Risk Screening There are no spiritual/cultural practices/values/needs that are important to know Initial Fall Risk Screening: SAE has fallen in the last 6 months. He has fallen due to ladder broke. His fall resulted in the following injury: present injury. SAE has a fear of falling. He does not need assistance with sitting, standing or walking. Does not need assistance walking in his home. He does not need assistance in an unfamiliar setting. The patient is using an assistive device. Fall Risk Screening: Patient is identified as a fall risk. Care Plan: Moderate Risk: Low risk interventions plus: do not leave patient on exam table unattended, supervised activity, educate patient/family on falls prevention, review safety initiatives with patient/family, family at bedside as allowed, yellow falls risk band, focus rounding attention, locate patient in area of high visibility, wheelchair, bed, or personal alarm, bedside commode, elevated toilet seat and pharmacy consult for medication concerns. Pain Scale: On a scale of 0 to 10, the patient rates the pain at 7. Please identify location of pain: L femur. Living Will. Living Will: Living will on file. Patient Declined. Healthcare POA: Health care proxy on file. Patient Declined. Declaration of Mental Health Treatment: No mental health treatment on file. Patient Declined. Insurance Insurance reviewed Visit number: 1 traditional 30 PT/OT 25$ copay Evaluating therapist Kalin Clancy PT. S72.8X2D; M25.562 mod fall risk Subjective Current Episode of Functional Impairment and/or Pain Date of onset: 08/28/22 Date of surgery: 08/29/22 Mechanism of Injury: fall. Medical Screening: Reviewed medical history form with patient and medical screening assessed. Current Medical Management:. S/P L femur ORIF done 08/29/22; now using x2 crutches WBAT. Precautions: Fall Risk: moderate Pertinent medical HX includes: mid prostate CA management; V-tach. Functional Assessment Prior level of function: PAINFUL, DIFFICULT, OR ALTERED ADL (marked with an xx) sleep-- sitting-- sit to standing transfers--XX car transfers--XX standing-- walking--XX carrying-- stairs--XX dressing lowers--XX driving-- dressing uppers-- reaching---- handling objects-- other-- . Patient stated goal(s) for treatment include: relieving pain , increasing strength , increasing mobility , walking with a normal gait , reducing symptoms , reducing/preventing future occurrences and learning preventative care measures . 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 Current Status: improving. Patient Awareness: Patient is aware of his diagnosis and prognosis. Personal Factors That May Impact Care:. ID confirmed with B-day; speaks georgian No obtrusive barriers to learning identified/observed. Objective Ort (more content not included)... Normal [facility] CNOVon 09-15-2022 CNOV Office Visit (AGPOB1 ) ----- SAE KAPADIA ([id number]) 1960 M Date Time Provider Department 09/15/22 10:45 AM JOHNSON ZAVALA AGPOB1 During your visit today, we recorded the following information about you: Respiration Weight Height 20/minute 88.2 kg 1.88 m Johnson Zavala MD 09/18/2022 11:22 AM Signed ORTHOPAEDIC OFFICE NOTE CHIEF COMPLAINT: Left hip injury HISTORY OF PRESENT ILLNESS: Sae Kapadia is a 62 year old male who presents for postoperative evaluation after intramedullary nail placement left femur for subtrochanteric fracture 08/29/2022. He notes generally improved functional symptoms and has progressed to ambulating with crutches from walker at home. Pain has been well controlled. No new injury mechanism. No new fevers chills nausea or vomiting. No new chest pain or shortness of breath. Completed home physical therapy. Reviewed nursing note and current pain scale. PAST MEDICAL HISTORY Diagnosis Date Cancer (HCC) Hyperlipemia Hypertension Mitral valve disorders(424.0) History reviewed. No pertinent surgical history. FAMILY HISTORY Problem Relation Age of Onset Hypertension Mother Hypertension Father Hypertension Sister Hypertension Brother Cancer Paternal Grandmother other (ANURYSM [Other]) Maternal Grandmother Heart Maternal Grandfather Prostate Cancer Father Social History Tobacco Use Smoking status: Never Smokeless tobacco: Never Substance Use Topics Alcohol use: Yes Comment: OCCASSIONAL SOCIALLY Drug use: No MEDICATIONS: Current Outpatient Medications Medication Sig FOLDING WALKER WITH 5 WHEELS 2 wheeled walker enoxaparin (LOVENOX) 40 mg/0.4 mL Inject 0.4 mL subcutaneously q 24 HR for 20 doses. ropinirole HCl (REQUIP ORAL) Take 0.5 mg by mouth twice daily. rosuvastatin (CRESTOR) 10 mg tablet Take 10 mg by mouth once daily. losartan (COZAAR) 50 mg tablet Take 50 mg by mouth once daily. abiraterone 250 mg tablet Take 1,000 mg by mouth once daily. 250 mg x 4 tabs daily predniSONE (DELTASONE) 5 mg tablet Take 5 mg by mouth once daily. 1 hour after abiraterone dose venlafaxine (EFFEXOR) 37.5 mg tablet Take 37.5 mg by mouth once daily. leuprolide acetate (LUPRON DEPOT INTRAMUSC.) Inject intramuscularly. zoledronic acid (ZOMETA INTRAVENOUS) Inject intravenously. NAPROXEN 500 MG TAB Take one(1) tablet twice daily as needed for pain, with food. No current facility-administered medications for this visit. ALLERGIES: ALLERGIES No Known Allergies PHYSICAL EXAMINATION: Resp 20 Ht 6' 2 (1.88m) Wt 194 lb 6.4 oz (88.2kg) BMI 24.95 kg/(m2). General Appearance: Well appearing, alert, in no acute distress, well-hydrated, well nourished. Skin: Skin color, texture, turgor normal, no suspicious rashes or lesions. Extremities: Left thigh incisions healing well. Global improving edema left thigh and ankle. Left thigh and leg compartments soft and compressible. Passive left hip internal and external rotation demonstrates smooth arc of motion and no pain. No pain with axial load. Ambulatory with mild limp left side. Peripheral Pulses: Normal. Neurologic: Intact light touch sensation left lower extremity. IMAGES: Recent Results (from the past 36 hour(s)) XR FEMUR GENERAL 2V AP/LAT LEFT Narrative AP and lateral views left femur demonstrate no change in position of the intramedullary implant stabilizing the subtrochanteric femur fracture. Length and alignment appropriate with mild unchanged gapping within the region of stress reaction and acute fracture. No new fracture identified. ASSESSMENT AND PLAN: 1. Closed displaced subtrochanteric fracture of left femur with routine healing, subsequent encounter - ICD9: V54.13, ICD10: S72.22XD Functional Plan: Continue weightbearing and range of motion as tolerated left lower extremity, pain limited. 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 Assistance Devices: May transition from crutches to cane as tolerated. Physical/Occupational Therapy: Completed home therapy. Wound Care: Cleaned incisions and removed all Steri-Strips. Continue daily soap and water washes. Pain Control: No change in pain regimen recommended this office visit. Fragility Fracture: Held upcoming dose of Zometa; plan to return as recommended per oncologist for treatment of metastatic prostate disease. Additional: None. Return in about 5 weeks (around 10/20/2022). Johnson Zavala MD Allergies As of Date: 09/15/2022 (No Known Allergies) Date Reviewed: 09/15/2022 Reviewed by: Yanci Hazel MA - Fully Assessed Reason for Visit: Established Patient [175] Follow Up [171] Post Op [174] Primary Visit Diagnosis:Closed displaced subtrochanteric fracture of left femur with routine healing, subsequent encounter [S72.22XD (more content not included)... Normal [facility] 09-06-2022 CNPN Telephone (AGPOB1) ----- SAE KAPADIA ([id number]) 1960 M Date Time Provider Department 09/06/22 JOHNSON ZAVALA [facility] During your visit today, we recorded the following information about you: Maite Mac 09/06/2022 10:07 AM Signed ----- Message from Maddie Oliver sent at 09/02/2022 9:49 AM EDT ----- Regarding: Ortho- Dinicola-Hip Post Op Subject Line Format: Orthopedics / [Provider Name or Open AND Body Part] / [Issue] Patient has been identified by name and Date of (Y/N): y Patient: Sae Kapadia Date of : 1960 Previous Provider Seen: noreen Body Part(s) Identified: femur Diagnosis/Reason For Visit: post op 2 weeks Reason for the call/escalation: post op 2 weeks- patients is aware dinicola will be out and will see someone else If reason for call/escalation is discharge from ED/ER or Hospital, which facility was the patient seen at: n/a Was an appointment scheduled (Y/N): n/a Person calling if other than patient: Return call to if other than patient: - Senia Best contact number: [phone] Thank you, Maddie Oliver September 02, 2022 9:49 AM Maite Mac 09/06/2022 10:09 AM Signed Called and spoke with the patient's . Got the patient scheduled. Maite Mac September 06, 2022 10:09 AM Allergies As of Date: 09/06/2022 (No Known Allergies) Date Reviewed: 08/29/2022 Reviewed by: Maame Colon RN - Fully Assessed Reason for Visit: Appointment [186] Prescriptions as of 09/06/2022 - FOLDING WALKER WITH 5 WHEELS 2 wheeled walker - oxyCODONE IR (ROXICODONE) 5 mg immediate release tablet Take 1 tablet by mouth every 6 hours as needed for pain for up to 7 days. - enoxaparin (LOVENOX) 40 mg/0.4 mL Inject 0.4 mL subcutaneously q 24 HR for 20 doses. - docusate sodium (COLACE) 100 mg capsule Take 1 capsule by mouth twice daily as needed for constipation for up to 7 days. - ropinirole HCl (REQUIP ORAL) Take 0.5 mg by mouth twice daily. - rosuvastatin (CRESTOR) 10 mg tablet Take 10 mg by mouth once daily. - losartan (COZAAR) 50 mg tablet Take 50 mg by mouth once daily. - abiraterone 250 mg tablet Take 1,000 mg by mouth once daily. 250 mg x 4 tabs daily - predniSONE (DELTASONE) 5 mg tablet Take 5 mg by mouth once daily. 1 hour after abiraterone dose - venlafaxine (EFFEXOR) 37.5 mg tablet Take 37.5 mg by mouth once daily. - leuprolide acetate (LUPRON DEPOT INTRAMUSC.) Inject intramuscularly. - zoledronic acid (ZOMETA INTRAVENOUS) Inject intravenously. - NAPROXEN 500 MG TAB Take one(1) tablet twice daily as needed for pain, with food. Problem List As Of Date 09/06/2022 Noted Resolved LACERATION -NOT COMPLICATED FINGER(S) [S61.209A]11/06/2006 JOINT PAIN-ANKLE [M25.579] 06/01/2007 Subtrochanteric fracture of left femur, closed,*08/28/2022 09/01/2022 Hypertension [I10] 08/29/2022 Cancer (HCC) [C80.1] 08/29/2022 Encounter Status:Closed by MAITE MAC on 09/06/22 [facility] SAE KAPADIA ([id number]) 1960 M Date Time Provider Department 09/03/22 MILEY PARKINSON During your visit today, we recorded the following information about you: Miley Parkinson, PT 09/03/2022 8:48 AM Signed Unmade PT SOC. Called yesterday and spoke with patient to confirm visit time for today. Then pt's called back to ask what agency I was from and I told her [facility]. She stated that she spoke with her insurance and [facility] home care is out of network and they have to use [facility] home care. Scheduling and ARM/office notified. Please contact me if any questions. Miley Parkinson PT [phone] Jennifer Slater LPN 09/03/2022 1:41 PM Signed At this time wants to cancel home care through the clinic. She is supposed to hear back from on Monday. She has our number if anything changes At this time we are canceling referral. Allergies As of Date: 09/03/2022 (No Known Allergies) Date Reviewed: 08/29/2022 Reviewed by: Maame Colon, SUKHJINDER - Fully Assessed Reason for Visit: Home Care [4073] Cmt: Unmade PT SOC Prescriptions as of 09/03/2022 - FOLDING WALKER WITH 5 WHEELS 2 wheeled walker - oxyCODONE IR (ROXICODONE) 5 mg immediate release tablet Take 1 tablet by mouth every 6 hours as needed for pain for up to 7 days. - enoxaparin (LOVENOX) 40 mg/0.4 mL Inject 0.4 mL subcutaneously q 24 HR for 20 doses. - docusate sodium (COLACE) 100 mg capsule Take 1 capsule by mouth twice daily as needed for constipation for up to 7 days. - ondansetron (ZOFRAN) 4 mg tablet Take 1 tablet by mouth every 8 hours as needed for nausea/vomiting for up to 5 days. - ropinirole HCl (REQUIP ORAL) Take 0.5 mg by mouth twice daily. - rosuvastatin (CRESTOR) 10 mg tablet Take 10 mg by mouth once daily. - losartan (COZAAR) 50 mg tablet Take 50 mg by mouth once daily. - abiraterone 250 mg tablet Take 1,000 mg by mouth once daily. 250 mg x 4 tabs daily - predniSONE (DELTASONE) 5 mg tablet Take 5 mg by mouth once daily. 1 hour after abiraterone dose - venlafaxine (EFFEXOR) 37.5 mg tablet Take 37.5 mg by mouth once daily. - leuprolide acetate (LUPRON DEPOT INTRAMUSC.) Inject intramuscularly. - zoledronic acid (ZOMETA INTRAVENOUS) Inject intravenously. - NAPROXEN 500 MG TAB Take one(1) tablet twice daily as needed for pain, with food. Problem List As Of Date 09/03/2022 Noted Resolved LACERATION -NOT COMPLICATED FINGER(S) [S61.209A]11/06/2006 JOINT PAIN-ANKLE [M25.579] 06/01/2007 Subtrochanteric fracture of left femur, closed,*08/28/2022 09/01/2022 Hypertension [I10] 08/29/2022 Cancer (HCC) [C80.1] 08/29/2022 Encounter Status:Closed by MILEY PARKINSON on 09/03/22 Normal [facility] Basic metabolic 2000 panelon 09-01-2022 Anion gap [Moles/Vol] 9 mmol/L Normal 9-18 [facility] Comment on above: Order Comment: Speci men Type: BLOOD SPECIMENOrdering Facility: [facility] Address: [address] [place] [address] Performed By: #### 2 4321-2 ####[facility] LABORATORYCLIA [id number] [place] [address] [place] Calcium [Mass/Vol] 7.8 mg/dL Low 8.5-10.2 [facility] Comment on above: Order Comment: Speci men Type: BLOOD SPECIMENOrdering Facility: [facility] Address: [address] [place] [address] Performed By: #### 2 4321-2 ####[facility] LABORATORYCLIA [id number] [address] STATES OF [facility] Chloride [Moles/Vol] 100 mmol/L Normal 97-105 [facility] Comment on above: Order Comment: Speci men Type: BLOOD SPECIMENOrdering Facility: [facility] Address: [address] [place] [address] Performed By: #### 2 4321-2 ####[facility] LABORATORYCLIA [id number] [address] [place] CO2 [Moles/Vol] 25 mmol/L Normal 22-30 [facility] Comment on above: Order Comment: Speci men Type: BLOOD SPECIMENOrdering Facility: [facility] Address: [address] [place] [address] Performed By: #### 2 4321-2 ####[facility]ITAL[facility]IA [id number] [address] OF [facility] Creatinine [Mass/Vol] 0.69 mg/dL Low 0.73-1.22 [facility] Comment on above: Order Comment: Speci men Type: BLOOD SPECIMENOrdering Facility: [facility] Address: [address] [place] [address] Performed By: #### 2 4321-2 ####[facility] LABORATORYCLIA [id number] [address] ESTIMATED GLOMERULAR FILTRATION RATE 106 mL/min/1.73m??? Normal >=60 [facility] Comment on above: Order Comment: Speci men Type: BLOOD SPECIMENOrdering Facility: [facility] Address: [address] [place] [address] Result Comment: Lissette mated Glomerular Filtration Rate (eGFR) is calculated using the 2020 CKD-EPI creatinine equation. This equation utilizes serum creatinine, sex, and age as parameters. The creatinine assay has traceable calibration to isotope dilution-mass spectrometry. Refer to KDIGO guidelines for clinical interpretation. In patients with unstable renal function, e.g. those with acute kidney injury, the eGFR may not accurately reflect actual GFR. Performed By: #### 2 4321-2 ####[facility] LABORATORYCLIA [id number] [place] [address] [place] Glucose [Mass/Vol] 111 mg/dL High 74-99 [facility] Comment on above: Order Comment: Suleman anderson Type: BLOOD SPECIMENOrdering Facility: [facility] Address: [address] [place] [address] Result Comment: The [place] Diabetes Association (ADA) provides guidance for cutoff values for fasting glucose and random glucose. The ADA defines fasting as no caloric intake for at least 8 hours. Fasting plasma glucose results between 100 to 125 mg/dL indicate increased risk for diabetes (prediabetes). Fasting plasma glucose results greater than or equal to 126 mg/dL meet the criteria for diagnosis of diabetes. In the absence of unequivocal hyperglycemia, results should be confirmed by repeat testing. In a patient with classic symptoms of hyperglycemia or hyperglycemic crisis, random plasma glucose results greater than or equal to 200 mg/dL meet the criteria for diagnosis of diabetes. Reference: Standards of Medical Care in Diabetes 2016, [place] Diabetes Association. Diabetes Care. 2016.39(Suppl 1). Performed By: #### 2 4321-2 ####[facility] LABORATORYCLIA [id number] [place] [address] [place] Potassium [Moles/Vol] 3.5 mmol/L Low 3.7-5.1 [facility] Comment on above: Order Comment: Suleman anderson Type: BLOOD SPECIMENOrdering Facility: [facility] Address: [address] [place] [address] Performed By: #### 2 4321-2 ####[facility] LABORATORYCLIA [id number] [place] [address] [place] Sodium [Moles/Vol] 134 mmol/L Low 136-144 [facility] Comment on above: Order Comment: Suleman anderson Type: BLOOD SPECIMENOrdering Facility: [facility] Address: [address] [place] [address] Performed By: #### 2 4321-2 ####[facility] LABORATORYCLIA [id number] [place] [address] [place] Urea nitrogen [Mass/Vol] 17 mg/dL Normal 9-24 [facility] Comment on above: Order Comment: Speci men Type: BLOOD SPECIMENOrdering Facility: [facility] Address: [address] [address] Performed By: #### 2 4321-2 ####[facility] LABORATORYCLIA [id number] [address] STATES OF [facility] CBC W Auto Differential pane l (Bld)on 09-01-2022 Basophils (Bld) [#/Vol] 10*3/uL Normal <0.11 [facility] Comment on above: Order Comment: Speci men Type: BLOOD SPECIMEN [facility] Address: [address] [place] [address] Performed By: #### 5 7021-8 #### [facility] CLIA [id number] [address] STATES [facility] Basophils/100 WBC (Bld) 0.2 % Normal [facility] Comment on above: Order Comment: Speci men Type: BLOOD SPECIMEN [facility] Address: [address] [place] [address] Performed By: #### 5 7021-8 #### [facility] CLIA [id number] [address] Differential cell count method Nom (Bld) Auto Normal [facility] Comment on above: Order Comment: Speci men Type: BLOOD SPECIMEN [facility] Address: [address] [address] Performed By: #### 5 7021-8 #### [facility] CLIA [id number] [address] STATES OF [facility] Eosinophils (Bld) [#/Vol] 0.15 10*3/uL Normal <0.46 [facility] Comment on above: Order Comment: Speci men Type: BLOOD SPECIMEN [facility] Address: [address] [address] Performed By: #### 5 7021-8 #### [facility] CLIA [id number] [address] [place] [address] Eosinophils/100 WBC (Bld) 2.7 % Normal [facility] Comment on above: Order Comment: Speci men Type: BLOOD SPECIMEN [facility] Address: [address] [address] Performed By: #### 5 7021-8 #### [facility] CLIA [id number] [address] Erythrocyte distribution width (RBC) [Ratio] 11.9 % Normal 11.5-15.0 [facility] Comment on above: Order Comment: Speci men Type: BLOOD SPECIMEN [facility] Address: [address] [place] [address] Performed By: #### 5 7021-8 #### [facility] CLIA [id number] [address] Hematocrit (Bld) [Volume fraction] 28.3 % Low 39.0-51.0 [facility] Comment on above: Order Comment: Speci men Type: BLOOD SPECIMEN [facility] Address: [address] [place] [address] Performed By: #### 5 7021-8 #### [facility] CLIA [id number] [address] Hemoglobin (Bld) [Mass/Vol] 9.7 g/dL Low 13.0-17.0 [facility] Comment on above: Order Comment: Speci men Type: BLOOD SPECIMEN [facility] Address: [address] [address] Performed By: #### 5 7021-8 #### [facility] CLIA [id number] [address] Immature granulocytes (Bld) [#/Vol] 0.03 10*3/uL Normal <0.10 [facility] Comment on above: Order Comment: Speci men Type: BLOOD SPECIMEN [facility] Address: [address] [place] [address] Performed By: #### 5 7021-8 #### [facility] CLIA [id number] [address] Immature granulocytes/100 WBC (Bld) 0.5 % Normal [facility] Comment on above: Order Comment: Speci men Type: BLOOD SPECIMEN [facility] Address: [address] [place] [address] Performed By: #### 5 7021-8 #### [facility] CLIA [id number] [address] Lymphocytes (Bld) [#/Vol] 1.21 10*3/uL Normal 1.00-4.00 [facility] Comment on above: Order Comment: Speci men Type: BLOOD SPECIMEN [facility] Address: [address] [place] [address] Performed By: #### 5 7021-8 #### [facility] CLIA [id number] [address] Lymphocytes/100 WBC (Bld) 21.9 % Normal [facility] Comment on above: Order Comment: Speci men Type: BLOOD SPECIMEN [facility] Address: [address] [place] [address] Performed By: #### 5 7021-8 #### [facility] CLIA [id number] [address] MCH (RBC) [Entitic mass] 30.5 pg Normal 26.0-34.0 [facility] [facility] Comment on above: Order Comment: Speci men Type: BLOOD SPECIMEN Ordering Facility: [facility] Address: [address] [place] [address] Performed By: #### 5 7021-8 #### [facility] CLIA [id number] [address] MCHC (RBC) [Mass/Vol] 34.3 g/dL Normal 30.5-36.0 [facility] Comment on above: Order Comment: Speci men Type: BLOOD SPECIMEN Ordering Facility: [facility] Address: [address] [address] Performed By: #### 5 7021-8 #### [facility] CLIA [id number] [address] MCV (RBC) [Entitic vol] 89.0 fL Normal 80.0-100.0 [facility] Comment on above: Order Comment: Speci men Type: BLOOD SPECIMEN Ordering Facility: [facility] Address: [address] [place] [address] Performed By: #### 5 7021-8 #### [facility] CLIA [id number] [address] Monocytes (Bld) [#/Vol] 0.98 10*3/uL High <0.87 [facility] Comment on above: Order Comment: Speci men Type: BLOOD SPECIMEN Ordering Facility: [facility] Address: [address] [place] [address] Performed By: #### 5 7021-8 #### [facility] CLIA [id number] [address] Monocytes/100 WBC (Bld) 17.8 % Normal [facility] Comment on above: Order Comment: Speci men Type: BLOOD SPECIMEN Ordering Facility: [facility] Address: [address] [place] [address] Performed By: #### 5 7021-8 #### [facility] CLIA [id number] [address] [place] Neutrophils (Bld) [#/Vol] 3.14 10*3/uL Normal 1.45-7.50 [facility] Comment on above: Order Comment: Speci men Type: BLOOD SPECIMEN Ordering Facility: [facility] Address: [address] [place] [address] Performed By: #### 5 7021-8 #### [facility] CLIA [id number] [address] [place] Neutrophils/100 WBC (Bld) 56.9 % Normal [facility] Comment on above: Order Comment: Speci men Type: BLOOD SPECIMEN Ordering Facility: [facility] Address: [address] [address] Performed By: #### 5 7021-8 #### [facility] CLIA [id number] [address] Nucleated RBC (Bld) [#/Vol] 10*3/uL Normal <0.01 [facility] Comment on above: Order Comment: Speci men Type: BLOOD SPECIMEN Ordering Facility: [facility] Address: [address] [address] Performed By: #### 5 7021-8 #### [facility] CLIA [id number] [address] Nucleated RBC/100 WBC (Bld) [Ratio] 0.0 /100 WBC Normal [facility] Comment on above: Order Comment: Speci men Type: BLOOD SPECIMEN Ordering Facility: [facility] Address: [address] [address] Performed By: #### 5 7021-8 #### [facility] CLIA [id number] [address] Platelet mean volume (Bld) [Entitic vol] 9.9 fL Normal 9.0-12.7 [facility] Comment on above: Order Comment: Speci men Type: BLOOD SPECIMEN Ordering Facility: [facility] Address: [address] [address] Performed By: #### 5 7021-8 #### [facility] CLIA [id number] [address] Platelets (Bld) [#/Vol] 176 10*3/uL Normal 150-400 [facility] Comment on above: Order Comment: Speci men Type: BLOOD SPECIMEN Ordering Facility: [facility] Address: [address] [place] [address] Performed By: #### 5 7021-8 #### [facility] CLIA [id number] [address] RBC (Bld) [#/Vol] 3.18 10*6/uL Low 4.20-6.00 [facility] Comment on above: Order Comment: Suleman monica Type: BLOOD SPECIMEN Ordering Facility: [facility] Address: [address] [address] Performed By: #### 5 7021-8 #### [facility] CLIA [id number] [address] WBC (Bld) [#/Vol] 5.52 10*3/uL Normal 3.70-11.00 [facility] Comment on above: Order Comment: Suleman anderson Type: BLOOD SPECIMEN Ordering Facility: [facility] Address: [address] [address] Performed By: #### 5 7021-8 #### [facility] CLIA [id number] [address] CNCOon 09-01-2022 CNCO Letter Text Normal [facility] CNDSon 09-01-2022 CNDS HNO ID: [id number] Author: Alaina Scott APRN.SOIL CONSERVATIONIST Service: Orthopaedic Surgery Author Type: Nurse Practitioner Type: Discharge Summary Filed: 09/01/2022 12:20 PM Note Text: ----- Attestation signed by Johnson Zavala MD at 09/01/2022 12:24 PM Agree. Seen and examined prior to discharge, provided letter for travel insurance. Office to arrange outpatient follow-up. ----- ORTHOPEDIC SURGERY DISCHARGE SUMMARY ADMISSION DATE: 08/28/2022 DISCHARGE DATE: 09/01/2022 Attending Physician: Johnson Zavala* Admitting Diagnosis: Left subtrochanteric femur fracture Discharge Diagnosis: Same as admitting Additional Diagnoses: ACTIVE PROBLEM LIST LACERATION -NOT COMPLICATED FINGER(S) Pain in Joint, Ankle and Foot Subtrochanteric Fracture of Left Femur, Closed, Initial Encounter (Hcc) Hypertension Cancer (Hcc) Surgeries During Hospitalization: Procedure(s) (LRB): OPEN TX INTERTROCHANTERIC / SUBTROCHANTERIC FX HIP/FEMUR INTRAMEDULARY W/ INTERLOCKING SCREWS OR CERCLAGE (Left) Consultations: Physical Therapy Case Management Internal Medicine Occupational Therapy Hospital Course: The patient is a 61 year old male who has been followed by Dr. Johnson Zavala*, . It was determined he would benefit from surgery. The procedure, its risks, benefits, and potential complications were discussed in detail with the patient or POA prior to surgery. Understanding of all topics was conveyed by the patient or POA, and consent was given for surgery. The patient was transferred from an outside hospital to [facility] on 08/28/2022. Surgery was scheduled and on 08/29/2022 he underwent a Procedure(s) (LRB): OPEN TX INTERTROCHANTERIC / SUBTROCHANTERIC FX HIP/FEMUR INTRAMEDULARY W/ INTERLOCKING SCREWS OR CERCLAGE (Left). The procedure was tolerated well and he was sent to the post operative recovery room in stable condition, where he also did well. He was subsequently sent to his hospital room for postoperative management. Once on the floor his postoperative course was unremarkable and he did well. His diet was advanced which he tolerated. His pain was well controlled. He worked with Physical and Occupational Therapy who recommended he be discharged to home with [facility]. He remained afebrile with stable vital signs throughout his stay. He was stable for discharge on POD#3. Complete and comprehensive discharge instructions were provided to the patient as well as necessary prescriptions. The patient had no further questions and was advised to call with any questions, concerns, or problems. Patient was hemodynamically stable postoperatively. Relevant labs included: Hemoglobin (g/dL) Date Value 08/31/2022 10.2 (L) 08/30/2022 12.0 (L) 08/29/2022 12.8 (L) Hematocrit (%) Date Value 08/31/2022 30.8 (L) 08/30/2022 35.8 (L) 08/29/2022 38.0 (L) Discharge Antibiotics: None Prior to surgery the patient was treated with antibiotics and continued with antibiotics 24 hours postoperatively DVT Prophylaxis: Sequential Compression Devices and Lovenox Complications: Internal medicine was consulted for post op medical management. Surgical Site Care: Dressing was changed 09/01/2022. Dressing is water resistant. Okay to shower. Do not saturate. No tub bath x 2 weeks. Remove dressing on post op day #7, 09/05/2022. Once dressing removed, wash with soap and water and pat area dry. No creams, lotions, powders, alcohol or peroxide to incisional area. Leave open to air. Weight Bearing: WBAT LLE Maintain hip precautions. Diet: Regular diet Patient Condition @ Discharge: Stable BP 119/74 Pulse 86 Temp 36.8 ?C (98.2 ?F) (Oral) Resp 17 Ht 188 cm (6' 2) Wt 95.7 kg (210 lb 15.7 oz) SpO2 96% BMI 27.09 kg/m? Discharge Disposition: Home with Home Health The patient was instructed to follow-up in FOLLOW UP WITH DR. JOHNSON ZAVALA IN 2 WEEKS.OFFICE WILL CALL TO SCHEDULE APPOINTMENT. Highest Readmission Risk Score: 15 The 30 day readmissions risk score is derived from an internally validated risk model which evaluates patient level characteristics, utilization history, medication orders and lab results up until the day of discharge. Patients with a score of 40 or above are considered highest risk for readmission. Specific patient level drivers will be listed at the bottom of the summary. The 30 day readmissions risk score is derived from an internally validated risk model which evaluates patient level characteristics, utilization history, medication orders and lab results up until the day of discharge. Patients with a score of 40 or above are considered highest risk for readmission. Specific patient level drivers will be listed at the bottom of the summary. Discharge Medications: Current Discharge Medica (more content not included)... Normal [facility] THERAPY NTon 09-01-2022 THERAPY NT HNO ID: [id number] Author: Gino Yanez PTA Service: Physical Therapy Author Type: Field Hockey And Lacrosse Coach Type: Therapy (PT/OT/Speech/Resp) Filed: 09/01/2022 12:01 PM Note Text: ----- Attestation signed by Lori Quiñones PT at 09/01/2022 4:40 PM I reviewed and agree with the documentation corresponding to this therapy visit. SIGNATURE: Lori Quiñones PT DATE: September 01, 2022 TIME: 4:40 PM ----- Physical Therapy Treatment SERVICE DATE: 09/01/2022 SERVICE TIME: 1046 to 1112 ROOM: [address] [place] [address] Recommended Discharge Disposition: Home PT Recommended Discharge Disposition Comments: patient has improved for home going with assist from family as needed Recommended Discharge Disposition Due to: (.) Recommended Discharge Equipment: (patient stated having walker and crutches at home) PT 6 Clicks Score: 18 Patient with improved gait distances, ability to safely negotiate stairs with rail and crutch. On pace for home going at d/c. continue to recommend home PT to improve strength, ROM, balance,endurance, normalize gait pattern and improved safety and performance in the home back to prior level of function. ] Additional personal present during this visit: Vicky Yuan Precautions/Activity Restrictions: Fall Risk, Weight Bearing Restrictions Extremity With Weight Bearing Restricted: Left Lower Extremity Left Lower Extremity Weight Bearing Status: WBAT Current Hospital Course: 61 y/o male s/p IMN femur 08/29 Reason for Hospital Admission: fall Relevant Past Medical History: cancer, HTN Response to Therapy Interventions: Good Participation in Activities, Improved Tolerance for Activity, On-Track to Achieve Discharge Goals Continued Skilled Needs Due to: Functional Mobility/Skill Impairments Physical Therapy Problem List: Education Deficit, Pain, Safety Deficits, Decreased Activity Tolerance, Decreased Range Of Motion, Decreased Strength, Functional Mobility Impairment, Balance Impaired Treatment Interventions: Education, Strengthening, Functional Mobility Training, Balance Training, Neuromuscular Re-education, Pain Management Plan for Next Visit: Bed Mobility, Chair Transfer Training, Gait Training, Exercise Instruction/Handout, Sit to Stand Transfers, Stair Training, Standing Balance, Standing Tolerance, Family Instruction Home Environment Patient Lives With: Spouse Assistance Available: Part-Time Entry To Home: Stairs Number Of Stairs Into Home: 4 Number Of Stairs To Bed/Bath: 0 Tub/Shower Type: stall Equipment Owned: Shower Chair Prior Functional Level: Within Functional Limits Prior Functional Level Comments: patient normally indepedent, active, still drives Baseline Cognition: Oriented to self, Oriented to place, Oriented to time, Oriented to situation Patient Report: Pleasant and agreeable to PT. CURRENT FUNCTIONAL STATUS: Most recent performance mobility performed during session in bold, other mobility completed during prior session and may no longer be correct or appropriate to complete. Current Functional Mobility Assist Level Additional Information Rolling Supine to Sit Minimal Assistance Sit to Supine Minimal Assistance, Additional Information Scooting Stand By Assistance Sit to Stand Contact Guard Assistance, Additional Information, Stand By Assistance cuing to slide LLE out for pain relief, powering up with LE, proper UE support Stand to Sit Contact Guard Assistance, Additional Information, Stand By Assistance cuing to square up to seated surface, proper UE support, eccentric control Bed to Chair Contact Guard Assistance Bed To Chair Transfer Type: Stepping Bed To Chair Transfer Equipment: Gait Belt, Wheeled Walker Toilet/Commode Gait Contact Guard Assistance Gait Device: Wheeled Walker Gait Distance (feet): 70' cuing for proper posture, heel strike, step length, walker management Stairs Contact Guard Assistance, Additional Information Stairs Device: Rail, Crutch(es) (single crutch) Number of Stairs: 4 cuing to lead up with non surgical LE, down with surgical LE, proper sequencing of rail, crutch, and LEs Curb Step Car Transfer Blank story indicate activity not attempted General Deviations/Observations: Tri decreased, Step length decreased, Flexed trunk posture, Antalgic gait, Non-functional gait speed Balance: Static Sitting, Dynamic Sitting, Static Standing, Dynamic Standing Static Sitting Balance: Normal Patient able to maintain steady balance without handhold support Dynamic Sitting Balance: Good Patient accepts moderate challenge, able to maintain balance while picking up object off floor Static Standing Balance: Fair Patient able to maintain balance with handhold support, may require occasional minimal assistance Dynamic Standing Balance: Fair Patien (more content not included)... Normal [facility] ALLIED HEALTHon 08-31-2022 ALLIED HEALTH HNO ID: [id number] Author: Chaplain Grant Woody Service: Spiritual Care Author Type: Student Type: Allied Health Filed: 08/31/2022 4:31 PM Note Text: SPIRITUAL CARE PROGRESS NOTE SERVICE DATE: 08/31/2022 SERVICE TIME: 3:40 Introduced myself to patient and . Pleasant conversation. Their merchandise deliverer had been in last night. Emotionally everyone is doing fine. To contact the Spiritual Care Department: Please call [phone]. SIGNATURE: Chaplain Grant Woody PATIENT NAME: Sae Kapadia DATE: August 31, 2022 TIME: 4:30 PM PAGER/CONTACT #: [phone] Normal [facility] Basic metabolic 2000 panelon 08-31-2022 Anion gap [Moles/Vol] 7 mmol/L Low 9-18 [facility] Comment on above: Order Comment: Speci men Type: BLOOD SPECIMEN Ordering Facility: [facility] Address: [address] [address] Performed By: #### 5 7021-8 #### [facility] CLIA [id number] [address] [place] [address] [place] Calcium [Mass/Vol] 7.4 mg/dL Low 8.5-10.2 [facility] Comment on above: Order Comment: Speci men Type: BLOOD SPECIMEN Ordering Facility: [facility] Address: [address] [id number] Performed By: #### 5 7021-8 #### [facility] CLIA [id number] [address] [place] [address] [place] Chloride [Moles/Vol] 100 mmol/L Normal 97-105 [facility] Comment on above: Order Comment: Speci men Type: BLOOD SPECIMEN Ordering Facility: [facility] Address: [address] [address] Performed By: #### 5 7021-8 #### [facility] CLIA [id number] [address] CO2 [Moles/Vol] 26 mmol/L Normal 22-30 [facility] Comment on above: Order Comment: Speci men Type: BLOOD SPECIMEN Ordering Facility: [facility] Address: [address] [place] [address] Performed By: #### 5 7021-8 #### [facility] CLIA [id number] [address] Creatinine [Mass/Vol] 0.72 mg/dL Low 0.73-1.22 [facility] Comment on above: Order Comment: Speci men Type: BLOOD SPECIMEN Ordering Facility: [facility] Address: [address] [place] [address] Performed By: #### 5 7021-8 #### [facility] CLIA [id number] [address] ESTIMATED GLOMERULAR FILTRATION RATE 105 mL/min/1.73m??? Normal >=60 [facility] Comment on above: Order Comment: Speci men Type: BLOOD SPECIMEN Ordering Facility: [facility] Address: [address] [place] [address] Result Comment: Lissette mated Glomerular Filtration Rate (eGFR) is calculated using the 2020 CKD-EPI creatinine equation. This equation utilizes serum creatinine, sex, and age as parameters. The creatinine assay has traceable calibration to isotope dilution-mass spectrometry. Refer to KDIGO guidelines for clinical interpretation. In patients with unstable renal function, e.g. those with acute kidney injury, the eGFR may not accurately reflect actual GFR. Performed By: #### 5 7021-8 #### [facility] CLIA [id number] [address] Glucose [Mass/Vol] 114 mg/dL High 74-99 [facility] Comment on above: Order Comment: Speci men Type: BLOOD SPECIMEN Ordering Facility: [facility] Address: [address] [place] [address] Result Comment: The [place] Diabetes Association (ADA) provides guidance for cutoff values for fasting glucose and random glucose. The ADA defines fasting as no caloric intake for at least 8 hours. Fasting plasma glucose results between 100 to 125 mg/dL indicate increased risk for diabetes (prediabetes). Fasting plasma glucose results greater than or equal to 126 mg/dL meet the criteria for diagnosis of diabetes. In the absence of unequivocal hyperglycemia, results should be confirmed by repeat testing. In a patient with classic symptoms of hyperglycemia or hyperglycemic crisis, random plasma glucose results greater than or equal to 200 mg/dL meet the criteria for diagnosis of diabetes. Reference: Standards of Medical Care in Diabetes 2016, [place] [employer] Association. Diabetes Care. 2016.39(Suppl 1). Performed By: #### 5 7021-8 #### [facility] CLIA [id number] [address] [place] Potassium [Moles/Vol] 3.5 mmol/L Low 3.7-5.1 [facility] Comment on above: Order Comment: Speci men Type: BLOOD SPECIMEN Ordering Facility: [facility] Address: [address] [address] Performed By: #### 5 7021-8 #### [facility] CLIA [id number] [address] [place] [address] STATES [facility] Sodium [Moles/Vol] 133 mmol/L Low 136-144 [facility] Comment on above: Order Comment: Speci men Type: BLOOD SPECIMEN Ordering Facility: [facility] Address: [address] [address] Performed By: #### 5 7021-8 #### [facility] CLIA [id number] [address] [place] Urea nitrogen [Mass/Vol] 15 mg/dL Normal 9-24 [facility] Comment on above: Order Comment: Speci men Type: BLOOD SPECIMEN Ordering Facility: [facility] Address: [address] [address] Performed By: #### 5 7021-8 #### [facility] CLIA [id number] [address] [place] [address] [place] CBC W Auto Differential pane l (Bld)on 08-31-2022 Basophils (Bld) [#/Vol] 10*3/uL Normal <0.11 [facility] Comment on above: Order Comment: Speci men Type: BLOOD SPECIMEN Ordering Facility: [facility] Address: [address] [address] Performed By: #### 5 7021-8 #### [facility] CLIA [id number] [address] Basophils/100 WBC (Bld) 0.2 % Normal [facility] Comment on above: Order Comment: Speci men Type: BLOOD SPECIMEN Ordering Facility: [facility] Address: [address] [address] Performed By: #### 5 7021-8 #### [facility] CLIA [id number] [address] Differential cell count method Nom (Bld) Auto Normal [facility] Comment on above: Order Comment: Speci men Type: BLOOD SPECIMEN Ordering Facility: [facility] Address: [address] [address] Performed By: #### 5 7021-8 #### [facility] CLIA [id number] [address] Eosinophils (Bld) [#/Vol] 0.14 10*3/uL Normal <0.46 [facility] Comment on above: Order Comment: Speci men Type: BLOOD SPECIMEN Ordering Facility: [facility] Address: [address] [address] Performed By: #### 5 7021-8 #### [facility] CLIA [id number] [address] Eosinophils/100 WBC (Bld) 2.8 % Normal [facility] Comment on above: Order Comment: Speci men Type: BLOOD SPECIMEN Ordering Facility: [facility] Address: [address] [address] Performed By: #### 5 7021-8 #### [facility] CLIA [id number] [address] [place] Erythrocyte distribution width (RBC) [Ratio] 12.2 % Normal 11.5-15.0 [facility] Comment on above: Order Comment: Speci men Type: BLOOD SPECIMEN Ordering Facility: [facility] Address: [address] [place] [address] Performed By: #### 5 7021-8 #### [facility] CLIA [id number] [address] [place] Hematocrit (Bld) [Volume fraction] 30.8 % Low 39.0-51.0 [facility] Comment on above: Order Comment: Speci men Type: BLOOD SPECIMEN Ordering Facility: [facility] Address: [address] [place] [address] Performed By: #### 5 7021-8 #### [facility] CLIA [id number] [address] [place] Hemoglobin (Bld) [Mass/Vol] 10.2 g/dL Low 13.0-17.0 [facility] Comment on above: Order Comment: Speci men Type: BLOOD SPECIMEN Ordering Facility: [facility] Address: [address] [place] [address] Performed By: #### 5 7021-8 #### [facility] CLIA [id number] [address] [place] Immature granulocytes (Bld) [#/Vol] 10*3/uL Normal <0.10 [facility] Comment on above: Order Comment: Speci men Type: BLOOD SPECIMEN Ordering Facility: [facility] Address: [address] [place] [address] Performed By: #### 5 7021-8 #### [facility] CLIA [id number] [address] Immature granulocytes/100 WBC (Bld) 0.4 % Normal [facility] Comment on above: Order Comment: Speci men Type: BLOOD SPECIMEN Ordering Facility: [facility] Address: [address] [address] Performed By: #### 5 7021-8 #### [facility] CLIA [id number] [address] Lymphocytes (Bld) [#/Vol] 1.05 10*3/uL Normal 1.00-4.00 [facility] Comment on above: Order Comment: Speci men Type: BLOOD SPECIMEN Ordering Facility: [facility] Address: [address] [address] Performed By: #### 5 7021-8 #### [facility] CLIA [id number] [address] Lymphocytes/100 WBC (Bld) 21.2 % Normal [facility] Comment on above: Order Comment: Speci men Type: BLOOD SPECIMEN Ordering Facility: [facility] Address: [address] [address] Performed By: #### 5 7021-8 #### [facility] CLIA [id number] [address] MCH (RBC) [Entitic mass] 29.7 pg Normal 26.0-34.0 [facility] Comment on above: Order Comment: Speci men Type: BLOOD SPECIMEN Ordering Facility: [facility] Address: [address] [address] Performed By: #### 5 7021-8 #### [facility] CLIA [id number] [address] MCHC (RBC) [Mass/Vol] 33.1 g/dL Normal 30.5-36.0 [facility] Comment on above: Order Comment: Speci men Type: BLOOD SPECIMEN Ordering Facility: [facility] Address: [address] [address] Performed By: #### 5 7021-8 #### [facility] CLIA [id number] [address] MCV (RBC) [Entitic vol] 89.8 fL Normal 80.0-100.0 [facility] Comment on above: Order Comment: Speci men Type: BLOOD SPECIMEN Ordering Facility: [facility] Address: [address] [address] Performed By: #### 5 7021-8 #### [facility] CLIA [id number] [address] [place] Monocytes (Bld) [#/Vol] 1.10 10*3/uL High <0.87 [facility] Comment on above: Order Comment: Speci men Type: BLOOD SPECIMEN Ordering Facility: [facility] Address: [address] [address] Performed By: #### 5 7021-8 #### [facility] CLIA [id number] [address] Monocytes/100 WBC (Bld) 22.2 % Normal [facility] Comment on above: Order Comment: Speci men Type: BLOOD SPECIMEN Ordering Facility: [facility] Address: [address] [address] Performed By: #### 5 7021-8 #### [facility] CLIA [id number] [address] Neutrophils (Bld) [#/Vol] 2.64 10*3/uL Normal 1.45-7.50 [facility] Comment on above: Order Comment: Speci men Type: BLOOD SPECIMEN Ordering Facility: [facility] Address: [address] [address] Performed By: #### 5 7021-8 #### [facility] CLIA [id number] [address] Neutrophils/100 WBC (Bld) 53.2 % Normal [facility] Comment on above: Order Comment: Speci men Type: BLOOD SPECIMEN Ordering Facility: [facility] Address: [address] [place] [address] Performed By: #### 5 7021-8 #### [facility] CLIA [id number] [address] Nucleated RBC (Bld) [#/Vol] 10*3/uL Normal <0.01 [facility] Comment on above: Order Comment: Speci men Type: BLOOD SPECIMEN Ordering Facility: [facility] Address: [address] [address] Performed By: #### 5 7021-8 #### [facility] CLIA [id number] [address] [place] Nucleated RBC/100 WBC (Bld) [Ratio] 0.0 /100 WBC Normal [facility] Comment on above: Order Comment: Speci men Type: BLOOD SPECIMEN Ordering Facility: [facility] Address: [address] [address] Performed By: #### 5 7021-8 #### [facility] CLIA [id number] [address] [place] Platelet mean volume (Bld) [Entitic vol] 9.8 fL Normal 9.0-12.7 [facility] Comment on above: Order Comment: Speci men Type: BLOOD SPECIMEN Ordering Facility: [facility] Address: [address] [address] Performed By: #### 5 7021-8 #### [facility] CLIA [id number] [address] [place] Platelets (Bld) [#/Vol] 165 10*3/uL Normal 150-400 [facility] Comment on above: Order Comment: Speci men Type: BLOOD SPECIMEN Ordering Facility: [facility] Address: [address] [address] Performed By: #### 5 7021-8 #### [facility] CLIA [id number] [address] [place] RBC (Bld) [#/Vol] 3.43 10*6/uL Low 4.20-6.00 [facility] Comment on above: Order Comment: Speci men Type: BLOOD SPECIMEN Ordering Facility: [facility] Address: [address] [address] Performed By: #### 5 7021-8 #### [facility] CLIA [id number] [address] [place] WBC (Bld) [#/Vol] 4.96 10*3/uL Normal 3.70-11.00 [facility] Comment on above: Order Comment: Speci men Type: BLOOD SPECIMEN Ordering Facility: [facility] Address: [address] [place] [id number] Performed By: #### 5 7021-8 #### [facility] CLIA [id number] [address] CNPNon 08-31-2022 CNPN Telephone (HCSIND) ----- SAE KAPADIA ([id number]) 1960 M Date Time Provider Department 08/31/22 MONY GALVAN During your visit today, we recorded the following information about you: Mony Galvan 08/31/2022 3:23 PM Signed Welcome Home Call: a. Date and Time: 3:21 PM 08/31/2022 b. Contact name/relationship: Senia Kapadia (Spouse) [phone] (Home Phone) c. Have you been active with any Home Care company in the last 60 days(such as help with bathing, filling medications, checking your blood pressure) ? No. d. [facility] will be providing your care, are you agreeable to starting these services? yes (yes or no) e. Do you have any upcoming appointments in the next few days, or restrictions to your schedule? Not sure f. Caregiver: Patient is able to manage care independently g. Confirmed Visited Location and preferred #: yes Please keep our your medications both over the counter and prescribed out for the home care to review, your hospital discharge instructions and write down any questions you might have. In order to maintain a safe environment for our caregivers, [facility] requires any animals or weapons present in the home be located in a secured location. Our clinicians will call you the night before or the morning of the appointment. Their # may come up restricted but they'll leave a VM for you. In case you have any questions or concerns in the meantime, our # is [phone], option 5 Thank you for your time and have a great day. 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 - enoxaparin (LOVENOX) 40 mg/0.4 mL Inject 0.4 mL subcutaneously q 24 HR for 20 doses. - docusate sodium (COLACE) 100 mg capsule Take 1 capsule by mouth twice daily as needed for constipation for up to 7 days. - ondansetron (ZOFRAN) 4 mg tablet Take 1 tablet by mouth every 8 hours as needed for nausea/vomiting for up to 5 days. - ropinirole HCl (REQUIP ORAL) Take 0.5 mg by mouth twice daily. - rosuvastatin (CRESTOR) 10 mg tablet Take 10 mg by mouth once daily. - losartan (COZAAR) 50 mg tablet Take 50 mg by mouth once daily. - abiraterone 250 mg tablet Take 1,000 mg by mouth once daily. 250 mg x 4 tabs daily - predniSONE (DELTASONE) 5 mg tablet Take 5 mg by mouth once daily. 1 hour after abiraterone dose - venlafaxine (EFFEXOR) 37.5 mg tablet Take 37.5 mg by mouth once daily. - leuprolide acetate (LUPRON DEPOT INTRAMUSC.) Inject intramuscularly. - zoledronic acid (ZOMETA INTRAVENOUS) Inject intravenously. - NAPROXEN 500 MG TAB Take one(1) tablet twice daily as needed for pain, with food. Facility-Administered Medications as of 08/31/2022 - abiraterone 1,000 mg tab(s) - predniSONE 5 mg tab(s) (DELTASONE) - prochlorperazine 5 mg injection (COMPAZINE) - enoxaparin 40 mg injection (LOVENOX) - rosuvastatin 10 mg tab(s) (CRESTOR) - losartan 50 mg tab(s) (COZAAR) - morphine 2 mg injection - ondansetron (PF) 4 mg injection (ZOFRAN) - melatonin 3 mg tab(s) - NaCl 0.9% iv flush bag - oxyCODONE IR 5-10 mg tab(s) (ROXICODONE) - acetaminophen 650 mg tab(s) (TYLENOL) - venlafaxine 37.5 mg tab(s) (EFFEXOR) - cyclobenzaprine 5 mg tab(s) (FLEXERIL) Problem List As Of Date 08/31/2022 Noted Resolved LACERATION -NOT COMPLICATED FINGER(S) [S61.209A]11/06/2006 JOINT PAIN-ANKLE [M25.579] 06/01/2007 Subtrochanteric fracture of left femur, closed,*08/28/2022 Hypertension [I10] 08/29/2022 Cancer (HCC) [C80.1] 08/29/2022 Encounter Status:Closed by MONY GALVAN on 08/31/22 Normal [facility] THERAPY NTon 08-31-2022 THERAPY NT HNO ID: [id number] Author: Gino Yanez PTA Service: Physical Therapy Author Type: Field Hockey And Lacrosse Coach Type: Therapy (PT/OT/Speech/Resp) Filed: 08/31/2022 2:29 PM Note Text: ----- Attestation signed by Lori Quiñones PT at 09/01/2022 4:27 PM I reviewed and agree with the documentation corresponding to this therapy visit. SIGNATURE: Lori Quiñones PT DATE: September 01, 2022 TIME: 4:27 PM ----- Physical Therapy Treatment SERVICE DATE: 08/31/2022 SERVICE TIME: 1340 to 1415 ROOM: [id number] Recommended Discharge Disposition: Home PT Recommended Discharge Disposition Comments: patient has improved for home going with assist from family as needed Recommended Discharge Disposition Due to: (.) Recommended Discharge Equipment: (patient stated having walker and crutches at home) PT 6 Clicks Score: 18 Patient with improved mobility this session, with decreased levels of require outside assistance with mobility. Patient on pace for home going at d/c. Recommendations changed from subacute to homePT. continue to recommend home PT to improve strength, ROM, balance,endurance, normalize gait pattern and improved safety and performance in the home back to prior level of function. Additional personnel present during visit: Denise Hernandez Precautions/Activity Restrictions: Fall Risk, Weight Bearing Restrictions Extremity With Weight Bearing Restricted: Left Lower Extremity Left Lower Extremity Weight Bearing Status: WBAT Current Hospital Course: 61 y/o male s/p IMN femur 08/29 Reason for Hospital Admission: fall Relevant Past Medical History: cancer, HTN Response to Therapy Interventions: Good Participation in Activities, Improved Tolerance for Activity, On-Track to Achieve Discharge Goals Continued Skilled Needs Due to: Functional Mobility/Skill Impairments, Safety Concerns Physical Therapy Problem List: Education Deficit, Pain, Safety Deficits, Decreased Activity Tolerance, Decreased Range Of Motion, Decreased Strength, Functional Mobility Impairment, Balance Impaired Treatment Interventions: Education, Strengthening, Functional Mobility Training, Balance Training, Neuromuscular Re-education, Pain Management Plan for Next Visit: Bed Mobility, Chair Transfer Training, Gait Training, Exercise Instruction/Handout, Sit to Stand Transfers, Stair Training, Standing Balance, Standing Tolerance, Family Instruction Home Environment Patient Lives With: Spouse Assistance Available: Part-Time Entry To Home: Stairs Number Of Stairs Into Home: 4 Number Of Stairs To Bed/Bath: 0 Tub/Shower Type: stall Equipment Owned: Shower Chair Prior Functional Level: Within Functional Limits Prior Functional Level Comments: patient normally indepedent, active, still drives Baseline Cognition: Oriented to self, Oriented to place, Oriented to time, Oriented to situation Patient Report: Pleasant and agreeable to PT. CURRENT FUNCTIONAL STATUS: Most recent performance mobility performed during session in bold, other mobility completed during prior session and may no longer be correct or appropriate to complete. Current Functional Mobility Assist Level Additional Information Rolling Supine to Sit Minimal Assistance assist with trunk to come to long sit, assist with LLE to transition to sitting at EOB Sit to Supine Minimal Assistance, Additional Information Scooting Stand By Assistance Sit to Stand Contact Guard Assistance, Additional Information, Stand By Assistance cuing to slide LLE out for pain relief, powering up with LE, proper UE support Stand to Sit Contact Guard Assistance, Additional Information, Stand By Assistance cuing to square up to seated surface, proper UE support, eccentric control Bed to Chair Contact Guard Assistance Bed To Chair Transfer Type: Stepping Bed To Chair Transfer Equipment: Gait Belt, Wheeled Walker Toilet/Commode Gait Contact Guard Assistance Gait Device: Wheeled Walker Gait Distance (feet): 12' cuing for proper posture, heel strike, step length, walker management Stairs Minimal Assistance, Additional Information Stairs Device: Rail, Crutch(es) (single crutch and rail) Number of Stairs: 4 cuing to lead up with non surgical LE, down with surgical LE, proper sequencing of rail, crutch, and LEs Curb Step Car Transfer Blank story indicate activity not attempted General Deviations/Observations: Tri decreased, Step length decreased, Flexed trunk posture, Antalgic gait, Non-functional gait speed Balance: Static Sitting, Dynamic Sitting, Static Standing, Dynamic Standing Static Sitting Balance: Good Patient able to maintain balance without handhold support, limited postural sway Dynamic Sitting Balance: Good Patient accepts moderate challenge, able to maintain balance while pic (more content not included)... Normal [facility] THERAPY NT HNO ID: [id number] Author: Lori Quiñones, PT Service: Physical Therapy Author Type: Physical Therapist Type: Therapy (PT/OT/Speech/Resp) Filed: 08/31/2022 1:54 PM Note Text: Physical Therapy Treatment SERVICE DATE: 08/31/2022 SERVICE TIME: 1122 to 1150 ROOM: [address] [address] Recommended Discharge Disposition: Subacute/SNF Recommended Discharge Disposition Due to: Patient requires daily, facility-based rehabilitation from at least one discipline due to:, anticipate community discharge/previous community dweller, decline in functional status requiring daily skilled care, ongoing intervention of multiple therapy disciplines PT 6 Clicks Score: 17 Patient progressing towards goals. Now requires min assist with functional mobility, able to improve ambulation distance/tolerance. Also completes left hip fracture protocol exercise. Patient would benefit from additional physical therapy to address deficits, improve strength/balance/mobility . Recommend SNF at discharge. Precautions/Activity Restrictions: Fall Risk, Weight Bearing Restrictions Extremity With Weight Bearing Restricted: Left Lower Extremity Left Lower Extremity Weight Bearing Status: WBAT Current Hospital Course: 61 y/o male s/p IMN femur 08/29 Reason for Hospital Admission: fall Relevant Past Medical History: cancer, HTN Response to Therapy Interventions: Good Participation in Activities, Improved Tolerance for Activity Continued Skilled Needs Due to: Functional Mobility/Skill Impairments, Safety Concerns Physical Therapy Problem List: Education Deficit, Pain, Safety Deficits, Decreased Activity Tolerance, Decreased Range Of Motion, Decreased Strength, Functional Mobility Impairment, Balance Impaired Treatment Interventions: Education, Strengthening, Functional Mobility Training, Balance Training, Neuromuscular Re-education, Pain Management Home Environment Patient Lives With: Spouse Assistance Available: Part-Time Entry To Home: Stairs Number Of Stairs Into Home: 4 Number Of Stairs To Bed/Bath: 0 Tub/Shower Type: stall Equipment Owned: Shower Chair Prior Functional Level: Within Functional Limits Prior Functional Level Comments: patient normally indepedent, active, still drives Baseline Cognition: Oriented to self, Oriented to place, Oriented to time, Oriented to situation Patient Report: Pleasant and agreeable to PT. CURRENT FUNCTIONAL STATUS: mobility performed during session in bold, other mobility completed during prior session and may no longer be correct or appropriate to complete. Current Functional Mobility Assist Level Additional Information Rolling Supine to Sit Contact Guard Assistance, Additional Information increased time/effort to complete Sit to Supine Minimal Assistance, Additional Information assist to lift LLE into bed Scooting Stand By Assistance, Additional Information able to position self at EOB and in bed with cues Sit to Stand Minimal Assistance, Additional Information cues for positioning on bed in prep for transfer Stand to Sit Minimal Assistance, Additional Information cues for hand placement, sit slowly Bed to Chair Moderate Assistance, Additional Information Bed To Chair Transfer Type: Stepping Bed To Chair Transfer Equipment: Wheeled Walker, Gait Belt Toilet/Commode Gait Minimal Assistance, Additional Information Gait Device: Wheeled Walker Gait Distance (feet): 15ftx2 slow, steady step to tri, cues for upright posture and positioning in walker, cues for WBAT Stairs Curb Step Car Transfer Blank story indicate activity not attempted General Deviations/Observations: Tri decreased, Step length decreased, Flexed trunk posture, Antalgic gait, Non-functional gait speed Balance: Static Sitting, Dynamic Sitting, Static Standing, Dynamic Standing Static Sitting Balance: Good Patient able to maintain balance without handhold support, limited postural sway Dynamic Sitting Balance: Good Patient accepts moderate challenge, able to maintain balance while picking up object off floor Static Standing Balance: Fair Patient able to maintain balance with handhold support, may require occasional minimal assistance Dynamic Standing Balance: Fair Patient accepts minimal challenge, able to maintain balance while turning head/trunk JH-HLM: 7: Walk 25 feet or more Learning/Educational Needs: Discharge Plan, Equipment, Functional Activities/Mobility, Plan of Care, Rehabilitation Techniques and Procedures, Safety Goals for Plan of Care: Patient/Caregiver Goals: Go Home Able to Perform HEP with: Verbal Cues Only (L hip fx protocol) Transfer Supine to/from Sit with: Stand By Assistance Transfer Sit to/from Stand with: Stand By Assistance Ambulate with: Stand By Assistance Distance: 40ft intervals Device: Wheeled Walker Ambulate Up and Down Steps with: Contact Guard Assistance Number of Steps: 4 Device: Rail, Cane Progress Toward Goals: P (more content not included)... Normal [facility] THERAPY NT HNO ID: [id number] Author: PASQUALE Garcia/Althea Service: Occupational Therapy Author Type: Occupational Therapist Type: Therapy (PT/OT/Speech/Resp) Filed: 08/31/2022 8:50 AM Note Text: Occupational Therapy Treatment SERVICE DATE: 08/31/2022 SERVICE TIME: 0814 to 0841 ROOM: [address] [address] Recommended Discharge Disposition: Subacute/SNF Recommended Discharge Disposition Comments: patient hopeful to return home at d/c with 's assistance. Recommended Discharge Disposition Due to: Patient requires daily, facility-based rehabilitation from at least one discipline due to:, ADL impairment resulting in caregiver dependence, decline in functional status requiring daily skilled care OT 6 Clicks Score: 16 Patient doing better overall today. He was able to mobilize to the bathroom with increased time and several standing rest breaks. At this time patient continues to require assistance for all self care and transfers and further OT services at warranted. All goals on-going. Precautions/Activity Restrictions: Fall Risk, Weight Bearing Restrictions Extremity With Weight Bearing Restricted: Left Lower Extremity Left Lower Extremity Weight Bearing Status: WBAT Current Hospital Course: L IMN femur Reason for Hospital Admission: fall Relevant Past Medical History: cancer, HTN Response to Therapy Interventions: Good Participation in Activities Occupational Therapy Problem List: Safety Deficits, Impaired Self Care, Decreased Activity Tolerance, Functional Mobility Impairment, Balance Impaired Cognition/Communication Deficits Responsiveness: Alert Follows Commands: 2-step Commands Treatment Interventions: Education, Self Care/Home Management, Energy Conservation Training, Strengthening, Functional Mobility Training, Balance Training Home Environment Patient Lives With: Spouse Assistance Available: Part-Time Entry To Home: Stairs Number Of Stairs Into Home: 4 Number Of Stairs To Bed/Bath: 0 Tub/Shower Type: stall Equipment Owned: Shower Chair Prior Functional Level: Within Functional Limits Prior Functional Level Comments: patient normally indepedent, active, still drives Baseline Cognition: Oriented to self, Oriented to place, Oriented to time, Oriented to situation Current and/or Former Occupation: [employer] Occupational Factors Life Roles: Family Member, Friend, Spouse/Significant Other, Employed Identified Strengths: Good Support System Patient Report: agreeable to session CURRENT FUNCTIONAL STATUS: Most recent performance Current Activities of Daily Living Assist Level Additional Information Feeding Set Up Grooming Stand By Assistance Bathing Upper Body Minimal Assistance Bathing Lower Body Moderate Assistance Dressing Upper Body Minimal Assistance Dressing Lower Body Moderate Assistance Toileting Moderate Assistance Functional Mobility Assist Level Additional Information Rolling Supine to Sit Minimal Assistance Step by step direction to move each LE closer to the side of bed while engaging core in order to sit upright, encouraged the long sit. Sit to Supine Minimal Assistance Scooting Minimal Assistance Increased time to scoot forward till feet were touching the ground. Patient needed to sit edge of bed for several minutes before getting up due to lightheadedness. Sit to Stand Minimal Assistance Cues for hand placement. Stand to Sit Minimal Assistance Cues to kick leg out and demo good eccentric control/safety/ Bed to Chair Toilet/Commode Minimal Assistance Step by step direction for sequence and technique with use of grab bar. Shower Functional Mobility Minimal Assistance, Additional Information Wheeled Walker functional mobility to bathroom and back. Patient required about 15+ minutes to mobilize the distance of the bathroom, educated on walker sequencing and fall prevention. Instructed patient on the benefit and value of receiving continued OT services at d/c to increased independence with self care and functional transfers. Blank story indicate activity not attempted Balance: Static Standing, Dynamic Standing Static Standing Balance: Fair Patient able to maintain balance with handhold support, may require occasional minimal assistance Dynamic Standing Balance: Fair Patient accepts minimal challenge, able to maintain balance while turning head/trunk Learning/Educational Needs: Discharge Plan, Disease Process, Edema Management, Equipment, Family Education/Training, Functional Activities/Mobility, Rehabilitation Techniques and Procedures, Self Care, Safety Goals for Plan of Care: Patient/Caregiver Goals: Participate in meaningful activities Grooming with: Set Up Upper Body Bathing with: Stand By Assistance Upper Body Dressing with: Stand By Assistance Lower Body Bathing with: Modified Independent Lower Body Dressing with: Modified Independent Toilet Hygiene with: Stand By Assistance Chair Transfer with: Conta (more content not included)... Normal [facility] Basic metabolic 2000 panelon 08-30-2022 Anion gap [Moles/Vol] 10 mmol/L Normal 9-18 [facility] Comment on above: Order Comment: Speci men Type: BLOOD SPECIMEN Ordering Facility: [facility] Address: [address] [address] Performed By: #### 5 7021-8 #### [facility] CLIA [id number] [address] STATES OF [facility] Calcium [Mass/Vol] 8.0 mg/dL Low 8.5-10.2 [facility] Comment on above: Order Comment: Speci men Type: BLOOD SPECIMEN Ordering Facility: [facility] Address: [address] [address] Performed By: #### 5 7021-8 #### [facility] CLIA [id number] [address] [place] [address] [place] Chloride [Moles/Vol] 101 mmol/L Normal 97-105 [facility] Comment on above: Order Comment: Speci men Type: BLOOD SPECIMEN Ordering Facility: [facility] Address: [address] [address] Performed By: #### 5 7021-8 #### [facility] CLIA [id number] [address] CO2 [Moles/Vol] 25 mmol/L Normal 22-30 [facility] Comment on above: Order Comment: Speci men Type: BLOOD SPECIMEN Ordering Facility: [facility] Address: [address] [place] [address] Performed By: #### 5 7021-8 #### [facility] CLIA [id number] [address] Creatinine [Mass/Vol] 0.79 mg/dL Normal 0.73-1.22 [facility] Comment on above: Order Comment: Speci men Type: BLOOD SPECIMEN Ordering Facility: [facility] Address: [address] [place] [address] Performed By: #### 5 7021-8 #### [facility] CLIA [id number] [address] ESTIMATED GLOMERULAR FILTRATION RATE 102 mL/min/1.73m??? Normal >=60 [facility] Comment on above: Order Comment: Speci men Type: BLOOD SPECIMEN Ordering Facility: [facility] Address: [address] [place] [address] Result Comment: Lissette mated Glomerular Filtration Rate (eGFR) is calculated using the 2020 CKD-EPI creatinine equation. This equation utilizes serum creatinine, sex, and age as parameters. The creatinine assay has traceable calibration to isotope dilution-mass spectrometry. Refer to KDIGO guidelines for clinical interpretation. In patients with unstable renal function, e.g. those with acute kidney injury, the eGFR may not accurately reflect actual GFR. Performed By: #### 5 7021-8 #### [facility] CLIA [id number] [address] [place] Glucose [Mass/Vol] 141 mg/dL High 74-99 [facility] Comment on above: Order Comment: Speci men Type: BLOOD SPECIMEN Ordering Facility: [facility] Address: [address] [place] [address] Result Comment: The [place] Diabetes Association (ADA) provides guidance for cutoff values for fasting glucose and random glucose. The ADA defines fasting as no caloric intake for at least 8 hours. Fasting plasma glucose results between 100 to 125 mg/dL indicate increased risk for diabetes (prediabetes). Fasting plasma glucose results greater than or equal to 126 mg/dL meet the criteria for diagnosis of diabetes. In the absence of unequivocal hyperglycemia, results should be confirmed by repeat testing. In a patient with classic symptoms of hyperglycemia or hyperglycemic crisis, random plasma glucose results greater than or equal to 200 mg/dL meet the criteria for diagnosis of diabetes. Reference: Standards of Medical Care in Diabetes 2016, [place] Diabetes Association. Diabetes Care. 2016.39(Suppl 1). Performed By: #### 5 7021-8 #### [facility] CLIA [id number] [address] Potassium [Moles/Vol] 3.9 mmol/L Normal 3.7-5.1 [facility] Comment on above: Order Comment: Suleman anderson Type: BLOOD SPECIMEN Ordering Facility: [facility] Address: [address] [address] Performed By: #### 5 7021-8 #### [facility] CLIA [id number] [address] Sodium [Moles/Vol] 136 mmol/L Normal 136-144 [facility] Comment on above: Order Comment: Suleman anderson Type: BLOOD SPECIMEN Ordering Facility: [facility] Address: [address] [address] Performed By: #### 5 7021-8 #### [facility] CLIA [id number] [address] [place] [address] Urea nitrogen [Mass/Vol] 18 mg/dL Normal 9-24 [facility] Comment on above: Order Comment: Suleman anderson Type: BLOOD SPECIMEN Ordering Facility: [facility] Address: [address] [address] Performed By: #### 5 7021-8 #### [facility] CLIA [id number] [address] [place] CBC W Auto Differential pane l (Bld)on 08-30-2022 Basophils (Bld) [#/Vol] 10*3/uL Normal <0.11 [facility] Comment on above: Order Comment: Speci men Type: BLOOD SPECIMENOrdering Facility: [facility] Address: [address] [place] [address] Performed By: #### 5 7021-8 ####[facility] [id number] [address] [place] Basophils/100 WBC (Bld) 0.2 % Normal [facility] Comment on above: Order Comment: Speci men Type: BLOOD SPECIMENOrdering Facility: [facility] Address: [address] [place] [address] Performed By: #### 5 7021-8 ####[facility] [id number] [address] [place] Differential cell count method Nom (Bld) Auto Normal [facility] Comment on above: Order Comment: Speci men Type: BLOOD SPECIMENOrdering Facility: [facility] Address: [address] [place] [address] Performed By: #### 5 7021-8 ####[facility] [id number] [place] [address] [place] Eosinophils (Bld) [#/Vol] 10*3/uL Normal <0.46 [facility] Comment on above: Order Comment: Speci men Type: BLOOD SPECIMENOrdering Facility: [facility] Address: [address] [place] [address] Performed By: #### 5 7021-8 ####[facility]CLIA [id number] [address] [place] Eosinophils/100 WBC (Bld) 0.2 % Normal [facility] Comment on above: Order Comment: Speci men Type: BLOOD SPECIMENOrdering Facility: [facility] Address: [address] [place] [address] Performed By: #### 5 7021-8 ####[facility]CLIA [id number] [address] OF [facility] Erythrocyte distribution width (RBC) [Ratio] 12.6 % Normal 11.5-15.0 [facility] Comment on above: Order Comment: Speci men Type: BLOOD SPECIMENOrdering Facility: [facility] Address: [address] [place] [address] Performed By: #### 5 7021-8 ####[facility]ORYCLIA [id number] [address] [place] Hematocrit (Bld) [Volume fraction] 35.8 % Low 39.0-51.0 [facility] Comment on above: Order Comment: Speci men Type: BLOOD SPECIMENOrdering Facility: [facility] Address: [address] [place] [address] Performed By: #### 5 7021-8 ####[facility]ORYCLIA [id number] [address] [place] Hemoglobin (Bld) [Mass/Vol] 12.0 g/dL Low 13.0-17.0 [facility] Comment on above: Order Comment: Speci men Type: BLOOD SPECIMENOrdering Facility: [facility] Address: [address] [place] [address] Performed By: #### 5 7021-8 ####[facility]ORYCLIA [id number] [address] [place] Immature granulocytes (Bld) [#/Vol] 10*3/uL Normal <0.10 [facility] Comment on above: Order Comment: Speci men Type: BLOOD SPECIMENOrdering Facility: [facility] Address: [address] [place] [address] Performed By: #### 5 7021-8 ####[facility]ORYCLIA [id number] [address] Immature granulocytes/100 WBC (Bld) 0.2 % Normal [facility] Comment on above: Order Comment: Speci men Type: BLOOD SPECIMENOrdering Facility: [facility] Address: [address] [place], [place] [address] Performed By: #### 5 7021-8 ####[facility]ORYCLIA [id number] [address] OF [facility] Lymphocytes (Bld) [#/Vol] 0.56 10*3/uL Low 1.00-4.00 [facility] Comment on above: Order Comment: Speci men Type: BLOOD SPECIMENOrdering Facility: [facility] Address: [address] [place] [address] Performed By: #### 5 7021-8 ####[facility]ORYCLIA [id number] [address] Lymphocytes/100 WBC (Bld) 10.7 % Normal [facility] Comment on above: Order Comment: Speci men Type: BLOOD SPECIMENOrdering Facility: [facility] Address: [address] [place] [address] Performed By: #### 5 7021-8 ####[facility]ORYCLIA [id number] [address] STATES OF [facility] MCH (RBC) [Entitic mass] 30.2 pg Normal 26.0-34.0 [facility] Comment on above: Order Comment: Speci men Type: BLOOD SPECIMENOrdering Facility: [facility] Address: [address] [place] [address] Performed By: #### 5 7021-8 ####[facility]ATORYCLIA [id number] [address] [place] MCHC (RBC) [Mass/Vol] 33.5 g/dL Normal 30.5-36.0 [facility] Comment on above: Order Comment: Speci men Type: BLOOD SPECIMENOrdering Facility: [facility] Address: [address] [place] [address] Performed By: #### 5 7021-8 ####[facility]ORYCLIA [id number] [address] [place] MCV (RBC) [Entitic vol] 90.2 fL Normal 80.0-100.0 [facility] Comment on above: Order Comment: Speci men Type: BLOOD SPECIMENOrdering Facility: [facility] Address: [address] [address] Performed By: #### 5 7021-8 ####[facility]ATORYCLIA [id number] [address] STATES [facility] Monocytes (Bld) [#/Vol] 0.91 10*3/uL High <0.87 [facility] Comment on above: Order Comment: Speci men Type: BLOOD SPECIMENOrdering Facility: [facility] Address: [address] [address] Performed By: #### 5 7021-8 ####[facility]ATORYCLIA [id number] [address] Monocytes/100 WBC (Bld) 17.3 % Normal [facility] Comment on above: Order Comment: Speci men Type: BLOOD SPECIMENOrdering Facility: [facility] Address: [address] [place] [address] Performed By: #### 5 7021-8 ####[facility]ATORYCLIA [id number] [address] Neutrophils (Bld) [#/Vol] 3.75 10*3/uL Normal 1.45-7.50 [facility] Comment on above: Order Comment: Speci men Type: BLOOD SPECIMENOrdering Facility: [facility] Address: [address] [place] [address] Performed By: #### 5 7021-8 ####[facility]ORYCLIA [id number] [address] Neutrophils/100 WBC (Bld) 71.4 % Normal [facility] Comment on above: Order Comment: Speci men Type: BLOOD SPECIMENOrdering Facility: [facility] Address: [address] [place] [address] Performed By: #### 5 7021-8 ####[facility]ORYCLIA [id number] [place] [address] [place] Nucleated RBC (Bld) [#/Vol] 10*3/uL Normal <0.01 [facility] Comment on above: Order Comment: Speci men Type: BLOOD SPECIMENOrdering Facility: [facility] Address: [address] [address] Performed By: #### 5 7021-8 ####[facility]ATORYCLIA [id number] [address] [place] Nucleated RBC/100 WBC (Bld) [Ratio] 0.0 /100 WBC Normal [facility] Comment on above: Order Comment: Speci men Type: BLOOD SPECIMENOrdering Facility: [facility] Address: [address] [place] [address] Performed By: #### 5 7021-8 ####[facility]ATORYCLIA [id number] [address] [place] Platelet mean volume (Bld) [Entitic vol] 9.5 fL Normal 9.0-12.7 [facility] Comment on above: Order Comment: Speci men Type: BLOOD SPECIMENOrdering Facility: [facility] Address: [address] [place] [address] Performed By: #### 5 7021-8 ####[facility]ATORYCLIA [id number] [address] [place] Platelets (Bld) [#/Vol] 187 10*3/uL Normal 150-400 [facility] Comment on above: Order Comment: Speci men Type: BLOOD SPECIMENOrdering Facility: [facility] Address: [address] [address] Performed By: #### 5 7021-8 ####[facility]ATORYCLIA [id number] [place] [address] [place] RBC (Bld) [#/Vol] 3.97 10*6/uL Low 4.20-6.00 [facility] Comment on above: Order Comment: Speci men Type: BLOOD SPECIMENOrdering Facility: [facility] Address: [address] [place] [address] Performed By: #### 5 7021-8 ####[facility]ATORYCLIA [id number] [place] [address] [facility] WBC (Bld) [#/Vol] 5.25 10*3/uL Normal 3.70-11.00 [facility] Comment on above: Order Comment: Speci men Type: BLOOD SPECIMENOrdering Facility: [facility] Address: [place] [address] Performed By: #### 5 7021-8 ####[facility]ORYCLIA [id number] [place] [address] [facility] ED PROV NOTEon 08-30-2022 ED PROV NOTE HNO ID: [id number] Author: Millie Allison MD Service: Emergency Medicine Author Type: Physician Type: ED Provider Notes Filed: 08/31/2022 12:11 AM Note Text: ED Provider Note Patient Name: Sae Kapadia : 1960 SERVICE DATE: 08/28/22 History Patient presents with: Fall: Per pt, he fell down a silo chute injuring his left leg. +fx. Pt sent from [place]. Pt had nerve block prior to transport. MSPs intact Patient is a 61-year-old male with past medical history as documented below who presents for hip fracture from outside hospital. Patient was working on a silo when he fell about 10 feet landing on his legs. Patient denies loss of consciousness or head trauma. Denies blood thinners. He was complaining of left hip/leg pain and presented to outside hospital. He was found to have a left subtrochanteric fracture but no other acute injuries. Patient sent over for orthopedic evaluation consult. Patient received fascia iliac a block for pain control prior to transport. PAST MEDICAL HISTORY Diagnosis Date Cancer (HCC) Hyperlipemia Hypertension Mitral valve disorders(424.0) History reviewed. No pertinent surgical history. FAMILY HISTORY Problem Relation Age of Onset Hypertension Mother Hypertension Father Hypertension Sister Hypertension Brother Cancer Paternal Grandmother other (ANURYSM [Other]) Maternal Grandmother Heart Maternal Grandfather Prostate Cancer Father Social History Tobacco Use Smoking status: Never Smokeless tobacco: Never Substance and Sexual Activity Alcohol use: Yes Comment: OCCASSIONAL SOCIALLY Drug use: No Sexual activity: Yes Partners: Female ALLERGIES No Known Allergies Review of Systems Constitutional: Negative for chills, fatigue and fever. HENT: Negative for congestion, ear pain, sinus pressure, sinus pain and sore throat. Eyes: Negative for photophobia, pain and redness. Respiratory: Negative for cough, shortness of breath and wheezing. Cardiovascular: Negative for chest pain and palpitations. Gastrointestinal: Negative for abdominal pain, constipation, diarrhea, nausea and vomiting. Genitourinary: Negative for dysuria, frequency and hematuria. Musculoskeletal: Positive for arthralgias and myalgias. Negative for joint swelling. Neurological: Negative for dizziness, weakness and numbness. Psychiatric/Behavioral: Negative for confusion and suicidal ideas. The patient is not nervous/anxious. All other systems reviewed and are negative. Physical Exam Vitals [08/28/222044] BP Pulse Temp Temp src Resp SpO2 Weight Height 177/91 76 36.5 ?C (97.7 ?F) Oral 18 96 % 90.7 kg (200 lb) 1.88 m (6' 2) Physical Exam Vitals and nursing note reviewed. Constitutional: General: He is not in acute distress. Appearance: He is not ill-appearing. HENT: Head: Normocephalic and atraumatic. Right Ear: Tympanic membrane, ear canal and external ear normal. Left Ear: Tympanic membrane, ear canal and external ear normal. Nose: No congestion. Mouth/Throat: Mouth: Mucous membranes are moist. Pharynx: Oropharynx is clear. No oropharyngeal exudate or posterior oropharyngeal erythema. Eyes: Extraocular Movements: Extraocular movements intact. Conjunctiva/sclera: Conjunctivae normal. Pupils: Pupils are equal, round, and reactive to light. Cardiovascular: Rate and Rhythm: Normal rate and regular rhythm. Pulses: Normal pulses. Heart sounds: Normal heart sounds. No murmur heard. No friction rub. No gallop. Pulmonary: Effort: Pulmonary effort is normal. Breath sounds: No wheezing, rhonchi or rales. Abdominal: General: Abdomen is flat. Bowel sounds are normal. Palpations: Abdomen is soft. There is no mass. Tenderness: There is no abdominal tenderness. There is no right CVA tenderness, left CVA tenderness, guarding or rebound. Musculoskeletal: General: Tenderness (Left hip) present. No deformity. Normal range of motion. Cervical back: Normal range of motion and neck supple. Skin: General: Skin is warm and dry. Capillary Refill: Capillary refill takes less than 2 seconds. Findings: No erythema. Neurological: General: No focal deficit present. Mental Status: He is alert and oriented to person, place, and time. Cranial Nerves: No cranial nerve deficit. Sensory: No sensory deficit. Motor: No weakness. Diagnostic Testing ED Labs Ordered and Reviewed - No data to display Procedures ED Course / Clinical Impression Clinical Impressions as of 08/30/22 0808 Fracture, proximal femur, left, closed, initial encounter (HCC) MDM / Disposition / Plan Patient is a 61-year-old male who presents for left hip fracture from outside hospital. See HPI. On exam patient is hemodynamically stable and in no acute distress. Patient has tenderness over the left hip with no obvious deformity noted. No lower extremity edema noted on exam. Radial, PT, DP pulses equal and intact bilaterally. No oth (more content not included)... Normal [facility] NURSING PROGon 08-30-2022 NURSING PROG HNO ID: [id number] Author: Sam Delvalle RN Service: ? Author Type: Registered Nurse Type: Nursing Progress Note Filed: 08/30/2022 7:10 AM Note Text: Pt still complaining of 10/10 stating pain med's are not helping with the pain called ortho and got a one time dose of 1mg dilaudid and oxy 5 mg, will continue to monitor. Normal [facility] THERAPY NTon 08-30-2022 THERAPY NT HNO ID: [id number] Author: Lori Quiñones, PT Service: Physical Therapy Author Type: Physical Therapist Type: Therapy (PT/OT/Speech/Resp) Filed: 08/30/2022 12:16 PM Note Text: Physical Therapy Evaluation SERVICE DATE: 08/30/2022 SERVICE TIME: 909 to 934 ROOM: [id number] Recommended Discharge Disposition: Subacute/SNF Recommended Discharge Disposition Due to: Patient requires daily, facility-based rehabilitation from at least one discipline due to:, anticipate community discharge/previous community dweller, decline in functional status requiring daily skilled care, ongoing intervention of multiple therapy disciplines PT 6 Clicks Score: 13 Precautions/Activity Restrictions: Fall Risk, Weight Bearing Restrictions Extremity With Weight Bearing Restricted: Left Lower Extremity Left Lower Extremity Weight Bearing Status: WBAT Current Hospital Course: L IMN femur Reason for Hospital Admission: fall Relevant Past Medical History: cancer, HTN Response to Therapy Interventions: Good Participation in Activities Continued Skilled Needs Due to: Functional Mobility/Skill Impairments, Safety Concerns Physical Therapy Problem List: Education Deficit, Pain, Safety Deficits, Decreased Activity Tolerance, Decreased Range Of Motion, Decreased Strength, Functional Mobility Impairment, Balance Impaired Treatment Interventions: Education, Strengthening, Functional Mobility Training, Balance Training, Neuromuscular Re-education, Pain Management Home Environment Patient Lives With: Spouse Assistance Available: Part-Time Entry To Home: Stairs Number Of Stairs Into Home: 4 Number Of Stairs To Bed/Bath: 0 Tub/Shower Type: stall Equipment Owned: Shower Chair Prior Functional Level: Within Functional Limits Prior Functional Level Comments: patient normally indepedent, active, still drives Baseline Cognition: Oriented to self, Oriented to place, Oriented to time, Oriented to situation Patient Report: Pleasant and agreeable to PT. CURRENT FUNCTIONAL STATUS: Most recent performance Current Functional Mobility Assist Level Additional Information Rolling Supine to Sit Minimal Assistance, Additional Information instructed long sit technique, cues for hand placement behind and scoot hips, assist to guide LLE Sit to Supine Scooting Minimal Assistance, Additional Information able to position self at EOB with LLE support Sit to Stand Moderate Assistance, Additional Information instructed technique, cues for hand placement, assist to lift and steady in standing Stand to Sit Minimal Assistance, Additional Information cues for positioning at surface, step forward with LLE and sit slowly, assist to move LLE out for pain control Bed to Chair Moderate Assistance, Additional Information Bed To Chair Transfer Type: Stepping Bed To Chair Transfer Equipment: Wheeled Walker, Gait Belt cues for upright posture, heavy use of BUE to assist especially in LLE single leg stance, assist balance Toilet/Commode Gait Stairs Curb Step Car Transfer Blank story indicate activity not attempted Range of Motion: Lower Extremity Comments Right Lower Extremity ROM Comments: WFL Left Lower Extremity ROM Comments: WFL Strength: Lower Extremity Comments Right Lower Extremity Strength Comments: WFL Left Lower Extremity Strength Comments: (+) quad set, LAQ with min assist Balance: Static Sitting, Dynamic Sitting, Static Standing, Dynamic Standing Static Sitting Balance: Good Patient able to maintain balance without handhold support, limited postural sway Dynamic Sitting Balance: Fair Patient accepts minimal challenge, able to maintain balance while turning head/trunk Static Standing Balance: Fair Patient able to maintain balance with handhold support, may require occasional minimal assistance Dynamic Standing Balance: Poor Patient unable to accept challenge or move without loss of balance JH-HLM: 5: Standing (1 or more minutes) Learning/Educational Needs: Discharge Plan, Equipment, Functional Activities/Mobility, Plan of Care, Rehabilitation Techniques and Procedures, Safety Goals for Plan of Care: Patient/Caregiver Goals: Go Home Able to Perform HEP with: Verbal Cues Only (L hip fx protocol) Transfer Supine to/from Sit with: Stand By Assistance Transfer Sit to/from Stand with: Stand By Assistance Ambulate with: Stand By Assistance Distance: 40ft intervals Device: Wheeled Walker Ambulate Up and Down Steps with: Contact Guard Assistance Number of Steps: 4 Device: Rail, Cane Rehab Potential: Good Patient will be discontinued from Physical Therapy when no further skilled needs are identified in this setting. PLAN: PT Frequency: Once daily (4-7) Plan of Care developed with: Patient TREATMENT INTERVENTIONS: Therapy Diagnosis: Reduced mobility-other, Muscle Weakness (generalized), Unsteadiness on feet, Abnormalities of gait and mobility-other, General symptoms an (more content not included)... Normal [facility] THERAPY NT HNO ID: [id number] Author: PASQUALE Garcia/Althea Service: Occupational Therapy Author Type: Occupational Therapist Type: Therapy (PT/OT/Speech/Resp) Filed: 08/30/2022 11:42 AM Note Text: Occupational Therapy Evaluation SERVICE DATE: 08/30/2022 SERVICE TIME: 1000 to 1023 ROOM: [place] [address] Recommended Discharge Disposition: Subacute/SNF Recommended Discharge Disposition Comments: patient hopeful to return home at d/c with 's assistance. Recommended Discharge Disposition Due to: Patient requires daily, facility-based rehabilitation from at least one discipline due to:, ADL impairment resulting in caregiver dependence, decline in functional status requiring daily skilled care OT 6 Clicks Score: 16 Precautions/Activity Restrictions: Fall Risk, Weight Bearing Restrictions Extremity With Weight Bearing Restricted: Left Lower Extremity Left Lower Extremity Weight Bearing Status: WBAT Current Hospital Course: L IMN femur Reason for Hospital Admission: fall Relevant Past Medical History: cancer, HTN Response to Therapy Interventions: Good Participation in Activities Continued Skilled Needs Due to: Functional Impairment, Safety Concerns Occupational Therapy Problem List: Safety Deficits, Impaired Self Care, Decreased Activity Tolerance, Functional Mobility Impairment, Balance Impaired Cognition/Communication Deficits Responsiveness: Alert Follows Commands: 2-step Commands Executive Function Deficits: Safety Awareness, Insight to Deficits Insight to Deficits: Minimal impairment Safety Awareness Deficit: Minimal impairment Treatment Interventions: Education, Self Care/Home Management, Energy Conservation Training, Strengthening, Functional Mobility Training, Balance Training Plan for Next Visit: Bathing Training, Dressing Training Home Environment Patient Lives With: Spouse Assistance Available: Part-Time Entry To Home: Stairs Number Of Stairs Into Home: 4 Tub/Shower Type: stall Equipment Owned: Shower Chair Prior Functional Level: Within Functional Limits Prior Functional Level Comments: patient normally indepedent, active, still drives Baseline Cognition: Oriented to self, Oriented to place, Oriented to time, Oriented to situation Current and/or Former Occupation: [employer] Occup[employer] Life Roles: Family Member, Friend, Spouse/Significant Other, Employed Identified Strengths: Good Support System Patient Report: agreeable to session CURRENT FUNCTIONAL STATUS: Most recent performance Current Activities of Daily Living Assist Level Additional Information Feeding Set Up Grooming Stand By Assistance Bathing Upper Body Minimal Assistance Bathing Lower Body Moderate Assistance Dressing Upper Body Minimal Assistance Dressing Lower Body Moderate Assistance Toileting Moderate Assistance Functional Mobility Assist Level Additional Information Rolling Supine to Sit Sit to Supine Scooting Sit to Stand Minimal Assistance Stand to Sit Minimal Assistance Bed to Chair Toilet/Commode Minimal Assistance (simulated) Step by step direction for sequencing. Shower Functional Mobility Minimal Assistance, Additional Information Wheeled Walker functional mobility forward about 8 steps. Spent several minutes educating and the different of home therapy vs skilled level of care. Provided insight on everything that patient will need to be able to do while at home in order to be successful. Educated on possible home equipment. Instructed patient on the benefit and value of receiving continued OT services at d/c to increased independence with self care and functional transfers. Blank story indicate activity not attempted Range of Motion: WFL Strength: WFL Balance: Static Standing, Dynamic Standing Static Standing Balance: Fair Patient able to maintain balance with handhold support, may require occasional minimal assistance Dynamic Standing Balance: Fair Patient accepts minimal challenge, able to maintain balance while turning head/trunk Learning/Educational Needs: Discharge Plan, Disease Process, Edema Management, Equipment, Family Education/Training, Functional Activities/Mobility, Rehabilitation Techniques and Procedures, Self Care, Safety Goals for Plan of Care: Patient/Caregiver Goals: Participate in meaningful activities Grooming with: Set Up Upper Body Bathing with: Stand By Assistance Upper Body Dressing with: Stand By Assistance Lower Body Bathing with: Modified Independent Lower Body Dressing with: Modified Independent Toilet Hygiene with: Stand By Assistance Chair Transfer with: Contact Guard Assistance Toilet Transfer with: Contact Guard Assistance Shower Transfer with: Contact Guard Assistance Car Transfer with: Contact Guard Assistance Demonstrate Competence with Education with: Contact Guard Assistance (safety/fall prevention) Rehab Potential: Good Patient will be discontinued from Occupational Th (more content not included)... Normal [facility] ALLIED HEALTHon 08-29-2022 ALLIED HEALTH HNO ID: [id number] Author: RT Jet(R) Service: Radiology Author Type: Technologist Type: Allied Health Filed: 08/29/2022 12:39 PM Note Text: Radiology Service Progress Note PATIENT NAME: Sae Kapadia DATE OF SERVICE: August 29, 2022 TIME: 12:38 PM PATIENT IDENTITY VERIFICATION COMPLETED USING TWO (2) IDENTIFIERS: Name and Date of obtained from nurse in [facility] . FALL SCREENING: Has the patient had 2 falls in the last year or 1 fall with injury or currently using an Ambulatory Assistive Device (Walker, Cane, Wheelchair, Crutches, etc.)? Inpatient: Screened on floor PATIENT GENDER DATA: Male PATIENT RELEVANT IMPLANT DATA REVIEWED: Not Applicable RADIOLOGY DEPARTMENT: Surgical X-Ray: Intraoperative Left Femur 2V PERIPHERAL IV DATA: Not applicable SIGNED BY: RT Gildardo(R) August 29, 2022 12:[address] [facility] ANES POSTPROC EVALon 023 ANES POSTPROC EVAL HNO ID: [id number] Author: Bradley Pearson MD Service: Anesthesiology Author Type: Physician Type: Anesthesia Postprocedure Evaluation Filed: 08/29/2022 3:34 PM Note Text: POST ANESTHESIA EVALUATION NOTE : 1960 Procedure Summary Date: 08/29/22 Room / Location: [place] OR / [place] OR Anesthesia Start: 1039 Anesthesia Stop: 1307 Procedure: OPEN TX INTERTROCHANTERIC / SUBTROCHANTERIC FX HIP/FEMUR INTRAMEDULARY W/ INTERLOCKING SCREWS OR CERCLAGE (Left: Hip) Diagnosis: Subtrochanteric fracture of left femur, closed, initial encounter (FORM[facility]LY [facility]) (Subtrochanteric fracture of left femur, closed, initial encounter ([facility]) [S72.22XA]) Surgeons: Johnson Zavala MD Responsible Provider: Bradley Pearson MD Anesthesia Type: general ASA Status: 3 Anesthesia Type: general Airway Type: LMA Last Vitals Vitals Value Taken Time BP 134/90 08/29/22 1500 Temp 36.4 ?C (97.5 ?F) 08/29/22 1415 HR SpO2 94 08/29/22 1514 Resp 17 08/29/22 1514 SpO2 96 % 08/29/22 1514 Vitals shown include unvalidated device data. Post Anesthesia Patient Status Anticipated Disposition: phase 2 then home. Neurological Status: aware and responsive. Pulmonary Status: breathing comfortably on supplemental oxygen Airway Control: returned to baseline unsupported. Cardiovascular Status: stable. Pain Management: clinically adequate Postoperative Hydration: acceptable. Intraoperative Events: no significant anesthesia events Post Operative Nausea/Vomiting Status: no significant post operative nausea or vomiting Recommendation: continue current plan of care and further care per PACU/ICU/floor team. Anesthesia Observations No Documentation SIGNATURE: Bradley Pearson MD PATIENT NAME: Sae Kapadia DATE: August 29, 2022 TIME: 3:34 PM CSN: [id number] [facility] ANES PRE-OPon 08-29-2022 ANES PRE-OP HNO ID: [id number] Author: Bradley Pearson MD Service: Anesthesiology Author Type: Physician Type: Anesthesia Preprocedure Evaluation Filed: 08/29/2022 10:14 AM Note Text: ANESTHESIOLOGY DAY OF SURGERY NOTE : 1960 Procedure Information Date/Time: 08/29/22 1039 Procedure: OPEN TX INTERTROCHANTERIC / SUBTROCHANTERIC FX HIP/FEMUR INTRAMEDULARY W/ INTERLOCKING SCREWS OR CERCLAGE (Left: Hip) Location: [place] OR / [place] OR Surgeons: Johnson Zavala MD Estimated body mass index is 27.09 kg/m? as calculated from the following: Height as of this encounter: 188 cm (6' 2). Weight as of this encounter: 95.7 kg (210 lb 15.7 oz). Most recent hematocrit and potassium results: Hematocrit 38.0 08/29/2022 Potassium 3.7 08/29/2022 Relevant Problems CARDIO (+) Hypertension Prostate CA Presented with left subtrochanteric femur fracture I - PHYSICAL EVALUATION AIRWAY Patient intubated: No. Tracheostomy tube not present Mallampati: III. TM distance: >3 FB. Neck ROM: full ROM without neurological symptoms. Mouth opening: adequate. Short neck: no. Thick neck: no Jackson present: no Lip Bite Test: I Microretrognathia/Microna gthia/Recessed Chin: No DENTAL Dental findings: teeth intact. Additional exam findings: no II - ANESTHESIA PLAN ASA Score: 3 Anesthetic Plan: general Airway type: LMA The patient is not a current smoker. NPO Status: adequate Beta Gustavo Monitoring Plan Monitoring plan: standard ASA. Post Procedure Analgesic Plan Postoperative analgesic plan: parenteral or oral opioids and peripheral nerve block. Informed Consent Anesthetic risks, benefits, alternatives, personnel and consent discussed: yes. Patient / Responsible Constitution Party agrees to proceed: yes Patient / Surrogate agrees to blood products: Yes Significant changes in the patient condition since the History and Physical, not otherwise documented in primary service progress note: no. Potential Anesthesia issues that may suggest increased risk of complications or contraindication to planned procedure: none. Vitals Value Taken Time BP 173/98 08/29/22 0947 Pulse 111 08/29/22 0947 Resp 16 08/29/22 0947 Temp 37.2 ?C (99 ?F) 08/29/22 0947 SpO2 92 % 08/29/22 0947 Facility-Administered Medications as of 08/29/2022 Medication Dose Route Frequency - prochlorperazine 5 mg injection (COMPAZINE) 5 mg INTRAVENOUS q 6 H PRN - ceFAZolin iv piggyback 2 g in D5W (iso-osmotic) 100 mL (ANCEF) 2 g INTRAVENOUS ONCE - tranexamic acid (CYKLOKAPRON) in NaCl 0.7% 1,000 mg 100 mL 1,000 mg INTRAVENOUS ONCE - [COMPLETED] BUPivacaine (PF) 0.25 % (2.5 mg/mL) 100 mg injection (SENSORCAINE MPF) 40 mL peripheral nerve block ONCE - rosuvastatin 10 mg tab(s) (CRESTOR) 10 mg ORAL DAILY - losartan 50 mg tab(s) (COZAAR) 50 mg ORAL DAILY - lactated ringers iv infusion 150 mL/hr INTRAVENOUS CONTINUOUS - morphine 2 mg injection 2 mg INTRAVENOUS q 2 H PRN - ondansetron (PF) 4 mg injection (ZOFRAN) 4 mg INTRAVENOUS q 6 H PRN - melatonin 3 mg tab(s) 3 mg ORAL AT BEDTIME PRN - NaCl 0.9% iv flush bag 20 mL INTRAVENOUS PRN - oxyCODONE IR 5-10 mg tab(s) (ROXICODONE) 5-10 mg ORAL q 4 H PRN - acetaminophen 650 mg tab(s) (TYLENOL) 650 mg ORAL q 6 H - venlafaxine 37.5 mg tab(s) (EFFEXOR) 37.5 mg ORAL DAILY - cyclobenzaprine 5 mg tab(s) (FLEXERIL) 5 mg ORAL TID PRN Outpatient Medications as of 08/29/2022 Medication Sig - ropinirole HCl (REQUIP ORAL) Take 0.5 mg by mouth twice daily. - rosuvastatin (CRESTOR) 10 mg tablet Take 10 mg by mouth once daily. - losartan (COZAAR) 50 mg tablet Take 50 mg by mouth once daily. - abiraterone 500 mg tablet - predniSONE (DELTASONE) 10 mg tablet Take 5 mg by mouth twice daily. - venlafaxine (EFFEXOR) 37.5 mg tablet Take 37.5 mg by mouth once daily. - leuprolide acetate (LUPRON DEPOT INTRAMUSC.) Inject intramuscularly. - zoledronic acid (ZOMETA INTRAVENOUS) Inject intravenously. - NAPROXEN 500 MG TAB Take one(1) tablet twice daily as needed for pain, with food. I have interviewed and examined the patient. I have reviewed the medical record and/or the pre-anesthesia evaluation, pertinent labs, and test results. This contains updated information obtained within 48 hours of Surgery/Procedure. SIGNATURE: Bradley Pearson MD PATIENT NAME: Sae Kapadia DATE: August 29, 2022 TIME: 10:12 AM CSN: [id number] Normal [facility] Basic metabolic 2000 panelon 08-29-2022 Anion gap [Moles/Vol] 13 mmol/L Normal 9-18 [facility] Comment on above: Order Comment: Speci men Type: BLOOD SPECIMEN Ordering Facility: [facility] Address: [address] [address] Performed By: #### 5 7021-8 #### [facility] CLIA [id number] [address] Calcium [Mass/Vol] 9.2 mg/dL Normal 8.5-10.2 [facility] Comment on above: Order Comment: Speci men Type: BLOOD SPECIMEN Ordering Facility: [facility] Address: [address] [place] [address] Performed By: #### 5 7021-8 #### [facility] CLIA [id number] [address] OF [facility] Chloride [Moles/Vol] 102 mmol/L Normal 97-105 [facility] Comment on above: Order Comment: Speci men Type: BLOOD SPECIMEN Ordering Facility: [facility] Address: [address] [place] [address] Performed By: #### 5 7021-8 #### [facility] CLIA [id number] [address] OF [place] CO2 [Moles/Vol] 23 mmol/L Normal 22-30 [facility] Comment on above: Order Comment: Speci men Type: BLOOD SPECIMEN Ordering Facility: [facility] Address: [address] [place] [address] Performed By: #### 5 7021-8 #### [facility] CLIA [id number] [address] [place] Creatinine [Mass/Vol] 0.69 mg/dL Low 0.73-1.22 [facility] Comment on above: Order Comment: Speci men Type: BLOOD SPECIMEN Ordering Facility: [facility] Address: [address] [place] [address] Performed By: #### 5 7021-8 #### [facility] CLIA [id number] [address] [place] ESTIMATED GLOMERULAR FILTRATION RATE 106 mL/min/1.73m??? Normal >=60 [facility] Comment on above: Order Comment: Suleman anderson Type: BLOOD SPECIMEN Ordering Facility: [facility] Address: [address] [place], [place] [phone] Result Comment: Lissette mated Glomerular Filtration Rate (eGFR) is calculated using the 2020 CKD-EPI creatinine equation. This equation utilizes serum creatinine, sex, and age as parameters. The creatinine assay has traceable calibration to isotope dilution-mass spectrometry. Refer to KDIGO guidelines for clinical interpretation. In patients with unstable renal function, e.g. those with acute kidney injury, the eGFR may not accurately reflect actual GFR. Performed By: #### 5 7021-8 #### [facility] CLIA [id number] 1 [place] [address] [place] Glucose [Mass/Vol] 149 mg/dL High 74-99 [facility] Comment on above: Order Comment: Suleman anderson Type: BLOOD SPECIMEN Ordering Facility: [facility] Address: [address] [place] [address] Result Comment: The [place] Diabetes Association (ADA) provides guidance for cutoff values for fasting glucose and random glucose. The ADA defines fasting as no caloric intake for at least 8 hours. Fasting plasma glucose results between 100 to 125 mg/dL indicate increased risk for diabetes (prediabetes). Fasting plasma glucose results greater than or equal to 126 mg/dL meet the criteria for diagnosis of diabetes. In the absence of unequivocal hyperglycemia, results should be confirmed by repeat testing. In a patient with classic symptoms of hyperglycemia or hyperglycemic crisis, random plasma glucose results greater than or equal to 200 mg/dL meet the criteria for diagnosis of diabetes. Reference: Standards of Medical Care in Diabetes 2016, [place] [employer] Association. Diabetes Care. 2016.39(Suppl 1). Performed By: #### 5 7021-8 #### [facility] CLIA [id number] 1 [place] [address] [place] Potassium [Moles/Vol] 3.7 mmol/L Normal 3.7-5.1 [facility] Comment on above: Order Comment: Suleman anderson Type: BLOOD SPECIMEN Ordering Facility: [facility] Address: [address] [phone] Performed By: #### 5 7021-8 #### [facility] CLIA [id number] [address] [place] Sodium [Moles/Vol] 138 mmol/L Normal 136-144 [facility] Comment on above: Order Comment: Speci men Type: BLOOD SPECIMEN Ordering Facility: [facility] Address: [address] [address] Performed By: #### 5 7021-8 #### [facility] CLIA [id number] [address] STATES [facility] Urea nitrogen [Mass/Vol] 21 mg/dL Normal 9-24 [facility] Comment on above: Order Comment: Speci men Type: BLOOD SPECIMEN Ordering Facility: [facility] Address: [address] [place] [address] Performed By: #### 5 7021-8 #### [facility] CLIA [id number] [address] CBC W Auto Differential pane l (Bld)on 08-29-2022 Basophils (Bld) [#/Vol] 0.04 10*3/uL Normal <0.11 [facility] Comment on above: Order Comment: Speci men Type: BLOOD SPECIMEN Ordering Facility: [facility] Address: [address] [place] [address] Performed By: #### 5 7021-8 #### [facility] CLIA [id number] [address] Basophils/100 WBC (Bld) 0.4 % Normal [facility] Comment on above: Order Comment: Speci men Type: BLOOD SPECIMEN Ordering Facility: [facility] Address: [address] [place] [address] Performed By: #### 5 7021-8 #### [facility] CLIA [id number] [address] Differential cell count method Nom (Bld) Auto Normal [facility] Comment on above: Order Comment: Speci men Type: BLOOD SPECIMEN Ordering Facility: [facility] Address: [address] [place] [address] Performed By: #### 5 7021-8 #### [facility] CLIA [id number] [address] [place] Eosinophils (Bld) [#/Vol] 0.03 10*3/uL Normal <0.46 [facility] Comment on above: Order Comment: Speci men Type: BLOOD SPECIMEN Ordering Facility: [facility] Address: [address] [place] [address] Performed By: #### 5 7021-8 #### [facility] CLIA [id number] [address] Eosinophils/100 WBC (Bld) 0.3 % Normal [facility] Comment on above: Order Comment: Speci men Type: BLOOD SPECIMEN Ordering Facility: [facility] Address: [address] [place] [address] Performed By: #### 5 7021-8 #### [facility] CLIA [id number] [address] Erythrocyte distribution width (RBC) [Ratio] 12.4 % Normal 11.5-15.0 [facility] Comment on above: Order Comment: Speci men Type: BLOOD SPECIMEN Ordering Facility: [facility] Address: [address] [place] [address] Performed By: #### 5 7021-8 #### [facility] CLIA [id number] [address] Hematocrit (Bld) [Volume fraction] 38.0 % Low 39.0-51.0 [facility] Comment on above: Order Comment: Speci men Type: BLOOD SPECIMEN Ordering Facility: [facility] Address: [address] [place] [address] Performed By: #### 5 7021-8 #### [facility] CLIA [id number] [address] [place] Hemoglobin (Bld) [Mass/Vol] 12.8 g/dL Low 13.0-17.0 [facility] Comment on above: Order Comment: Speci men Type: BLOOD SPECIMEN Ordering Facility: [facility] Address: [address] [address] Performed By: #### 5 7021-8 #### [facility] CLIA [id number] [address] Immature granulocytes (Bld) [#/Vol] 0.04 10*3/uL Normal <0.10 [facility] Comment on above: Order Comment: Speci men Type: BLOOD SPECIMEN Ordering Facility: [facility] Address: [address] [address] Performed By: #### 5 7021-8 #### [facility] CLIA [id number] [address] Immature granulocytes/100 WBC (Bld) 0.4 % Normal [facility] Comment on above: Order Comment: Speci men Type: BLOOD SPECIMEN Ordering Facility: [facility] Address: [address] [place] [address] Performed By: #### 5 7021-8 #### [facility] CLIA [id number] [address] Lymphocytes (Bld) [#/Vol] 1.13 10*3/uL Normal 1.00-4.00 [facility] Comment on above: Order Comment: Speci men Type: BLOOD SPECIMEN Ordering Facility: [facility] Address: [address] [place] [address] Performed By: #### 5 7021-8 #### [facility] CLIA [id number] [address] Lymphocytes/100 WBC (Bld) 12.1 % Normal [facility] Comment on above: Order Comment: Speci men Type: BLOOD SPECIMEN Ordering Facility: [facility] Address: [address] [place] [address] Performed By: #### 5 7021-8 #### [facility] CLIA [id number] [address] MCH (RBC) [Entitic mass] 30.0 pg Normal 26.0-34.0 [facility] Comment on above: Order Comment: Speci men Type: BLOOD SPECIMEN Ordering Facility: [facility] Address: [address] [place] [address] Performed By: #### 5 7021-8 #### [facility] CLIA [id number] [address] MCHC (RBC) [Mass/Vol] 33.7 g/dL Normal 30.5-36.0 [facility] Comment on above: Order Comment: Speci men Type: BLOOD SPECIMEN Ordering Facility: [facility] Address: [address] [place] [address] Performed By: #### 5 7021-8 #### [facility] CLIA [id number] [address] MCV (RBC) [Entitic vol] 89.0 fL Normal 80.0-100.0 [facility] Comment on above: Order Comment: Speci men Type: BLOOD SPECIMEN Ordering Facility: [facility] Address: [address] [place] [address] Performed By: #### 5 7021-8 #### [facility] CLIA [id number] [address] Monocytes (Bld) [#/Vol] 0.83 10*3/uL Normal <0.87 [facility] Comment on above: Order Comment: Speci men Type: BLOOD SPECIMEN Ordering Facility: [facility] Address: [address] [address] Performed By: #### 5 7021-8 #### [facility] CLIA [id number] [address] Monocytes/100 WBC (Bld) 8.9 % Normal [facility] Comment on above: Order Comment: Speci men Type: BLOOD SPECIMEN Ordering Facility: [facility] Address: [address] [place] [address] Performed By: #### 5 7021-8 #### [facility] CLIA [id number] [address] [place] Neutrophils (Bld) [#/Vol] 7.27 10*3/uL Normal 1.45-7.50 [facility] Comment on above: Order Comment: Speci men Type: BLOOD SPECIMEN Ordering Facility: [facility] Address: [address] [address] Performed By: #### 5 7021-8 #### [facility] CLIA [id number] [address] [place] Neutrophils/100 WBC (Bld) 77.9 % Normal [facility] Comment on above: Order Comment: Speci men Type: BLOOD SPECIMEN Ordering Facility: [facility] Address: [address] [place] [address] Performed By: #### 5 7021-8 #### [facility] CLIA [id number] [address] [place] Nucleated RBC (Bld) [#/Vol] 10*3/uL Normal <0.01 [facility] Comment on above: Order Comment: Speci men Type: BLOOD SPECIMEN Ordering Facility: [facility] Address: [address] [place] [address] Performed By: #### 5 7021-8 #### [facility] CLIA [id number] [address] OF [facility] Nucleated RBC/100 WBC (Bld) [Ratio] 0.0 /100 WBC Normal [facility] Comment on above: Order Comment: Speci men Type: BLOOD SPECIMEN Ordering Facility: [facility] Address: [address] [place] [address] Performed By: #### 5 7021-8 #### [facility] CLIA [id number] [address] [place] Platelet mean volume (Bld) [Entitic vol] 9.8 fL Normal 9.0-12.7 [facility] Comment on above: Order Comment: Speci men Type: BLOOD SPECIMEN Ordering Facility: [facility] Address: [address] [place] [address] Performed By: #### 5 7021-8 #### [facility] CLIA [id number] [address] Platelets (Bld) [#/Vol] 186 10*3/uL Normal 150-400 [facility] Comment on above: Order Comment: Speci men Type: BLOOD SPECIMEN Ordering Facility: [facility] Address: [address] [place] [address] Performed By: #### 5 7021-8 #### [facility] CLIA [id number] [address] OF [facility] RBC (Bld) [#/Vol] 4.27 10*6/uL Normal 4.20-6.00 [facility] Comment on above: Order Comment: Speci men Type: BLOOD SPECIMEN Ordering Facility: [facility] Address: [address] [place] [address] Performed By: #### 5 7021-8 #### [facility] CLIA [id number] [address] WBC (Bld) [#/Vol] 9.34 10*3/uL Normal 3.70-11.00 [facility] Comment on above: Order Comment: Speci men Type: BLOOD SPECIMEN Ordering Facility: [facility] Address: [address] [place] [address] Performed By: #### 5 7021-8 #### [facility] CLIA [id number] [address] CONFIRM BLOOD TYPEon 023 ABO A Normal [facility] [facility] Comment on above: Order Comment: Speci men Type: BLOOD SPECIMEN Ordering Facility: [facility] Address: [address] [place] [address] Performed By: #### C ONABO #### [facility] CLIA [id number] [address] Rh Nom (Bld) Positive Normal [facility] Comment on above: Order Comment: Speci men Type: BLOOD SPECIMEN Ordering Facility: [facility] Address: [place] [address] Performed By: #### C ONABO #### [facility] BLOOD BANK [place] [id number] 1 [address] [place] [id number] [facility] CONSULTon 08-29-2022 CONSULT HNO ID: [id number] Author: Yoselin Hendricks MD Service: Hospital Medicine Author Type: Physician Type: Consults Filed: 08/29/2022 5:26 AM Note Text: DEPARTMENT OF HOSPITAL MEDICINE MEDICAL CONSULT AUTHOR: Yoselin Hendricks MD PATIENT NAME: Sae Kapadia : 1960 Primary Care Physician: Pura Beckman MD NIGHT AND WEEKEND COVERAGE: From 7am - 7pm, please call Sound Physician on duty After 7pm, please call cross cover pager #[phone] Reason for consult: Pre-operative evaluation and/or continued medical management/optimization HPI: This is a 61 year old male with significant PMH as outline below, is admitted and currently managed for left subtrochanteric femur fracture . Patient is one bisphosphonate and history of metastatic prostate cancer. Prior to and immediatly after the fall, patient did not have any dizziness, chest pain or SOB. No LOC or head injury. Not on any blood thinners. The patient was seen and examined at bedside, appears alert and awake with no acute distress. Patient denied any resting ongoing chest pain, resting SOB, hemoptysis, productive cough, fever, ongoing palpitation, active abdominal pain, hematemesis, rectal bleeding, antoinette, hematuria, any other and GI complaints, and any new focal neuro deficits. PAST HISTORY PAST MEDICAL HISTORY Diagnosis Date Cancer (HCC) Hyperlipemia Hypertension Mitral valve disorders(424.0) No past surgical history on file. ALLERGIES Patient has no known allergies. FAMILY HISTORY Family History Reviewed Including Cardiac Diseases, Psychiatric Diseases, AND Substance Abuse Problem: Hypertension Relation: Mother Age of Onset: (Not Specified) Problem: Hypertension Relation: Father Age of Onset: (Not Specified) Problem: Hypertension Relation: Sister Age of Onset: (Not Specified) Problem: Hypertension Relation: Brother Age of Onset: (Not Specified) Problem: Cancer Relation: Paternal Grandmother Age of Onset: (Not Specified) Problem: other (ANURYSM [Other]) Relation: Maternal Grandmother Age of Onset: (Not Specified) Problem: Heart Relation: Maternal Grandfather Age of Onset: (Not Specified) Problem: Prostate Cancer Relation: Father Age of Onset: (Not Specified) FAMILY HISTORY Problem Relation Age of Onset Hypertension Mother Hypertension Father Hypertension Sister Hypertension Brother Cancer Paternal Grandmother other (ANURYSM [Other]) Maternal Grandmother Heart Maternal Grandfather Prostate Cancer Father SOCIAL HISTORY Employer And Job Title: [employer] ([employer]IST) Years Of Education Completed: 12 years Marital Status: to [place] with 1 child Social History Tobacco Use Smoking status: Never Smokeless tobacco: Never Substance Use Topics Alcohol use: Yes Comment: OCCASSIONAL SOCIALLY Drug use: No MEDICATIONS rosuvastatin (CRESTOR) 10 mg tabletDisp: Rfl: losartan (COZAAR) 50 mg tabletDisp: Rfl: abiraterone 500 mg tabletDisp: Rfl: predniSONE (DELTASONE) 10 mg tablet5 mg.Disp: Rfl: venlafaxine (EFFEXOR) 37.5 mg tabletDisp: Rfl: leuprolide acetate (LUPRON DEPOT INTRAMUSC.)Inject intramuscularly.Disp: Rfl: zoledronic acid (ZOMETA INTRAVENOUS)Inject intravenously.Disp: Rfl: NAPROXEN 500 MG TABTake one(1) tablet twice daily as needed for pain, with food.Disp: 60Rfl: 1 CURRENT HOSPITAL MEDICATIONS: Current Facility-Administered Medications Medication Dose Route Frequency rosuvastatin 10 mg tab(s) (CRESTOR) 10 mg ORAL DAILY losartan 50 mg tab(s) (COZAAR) 50 mg ORAL DAILY lactated ringers iv infusion 150 mL/hr INTRAVENOUS CONTINUOUS morphine 2 mg injection 2 mg INTRAVENOUS q 2 H PRN ondansetron (PF) 4 mg injection (ZOFRAN) 4 mg INTRAVENOUS q 6 H PRN melatonin 3 mg tab(s) 3 mg ORAL AT BEDTIME PRN NaCl 0.9% iv flush bag 20 mL INTRAVENOUS PRN oxyCODONE IR 5-10 mg tab(s) (ROXICODONE) 5-10 mg ORAL q 4 H PRN acetaminophen 650 mg tab(s) (TYLENOL) 650 mg ORAL q 6 H venlafaxine 37.5 mg tab(s) (EFFEXOR) 37.5 mg ORAL DAILY cyclobenzaprine 5 mg tab(s) (FLEXERIL) 5 mg ORAL TID PRN ALLERGIES No Known Allergies REVIEW OF SYSTEM: Pertinent positives and negatives are noted in the HPI, all other systems are reviewed and negative. Objective BP 168/99 Pulse 79 Temp (Src) 98.4 (Oral) Resp 18 Ht 6' 2 (1.88m) Wt 210 lb 15.7 oz (95.7kg) SpO2 95% BMI 27.08 kg/(m2). O2 Therapy: Room Air Physical Exam: GENERAL: Afebrile, Appears dehydrated otherwise hemodynamically stable at present. HEENT: PERRLA, no icterus. OP clear and no exudates. NECK: Supple, There is no LAD or thyromegaly. RESPIRATORY: Bilateral equal vesicular BS with no wheezing/rhonchi/crepitat ions. Lung bases are clear. . HEART: Normal S1 and S2, No S3 or S4 is audible. No pulsation, thrills, murmur or friction rubs. . ABDOMEN: Soft, nondistended, nontender. Bowel sound is present.. EXTREMITIES: All peripheral pulses are present. No calf (more content not included)... Normal [facility] CT FEMUR WO IVCON LTon 08-29 CT FEMUR WO IVCON LT * * *Final Report* * * DATE OF EXAM: Aug 28 2022 10:02PM [facility] 0071 - CT FEMUR WO IVCON LT / PROCEDURE REASON: Metastatic disease evaluation * * * * Physician Interpretation * * * * EXAMINATION: CT FEMUR WO IVCON LT CLINICAL HISTORY: Fall with leg injury. Technique: Noncontrasted CT of the left femur. CT Radiation dose: Integrated Dose-length product (DLP) for this visit = 664 mGy*cm CT Dose Reduction Employed: Automated exposure control (AEC) COMPARISON: Radiograph obtained earlier same day. FINDINGS: Redemonstrated subtrochanteric fracture of the left femoral diaphysis with posterior displacement and minimal superior migration. Fracture is predominantly transversely oriented. No additional fracture identified. Exam is not optimized for evaluation of soft tissues, however tendons and musculature appear grossly intact. Partially visualized intraperitoneal contents are unremarkable. Fluid present in expected location of popliteal cyst. No significant knee effusion. IMPRESSION: 1. Redemonstrated proximal femoral fracture. 2. Popliteal cyst. 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: BASHIR Transcribe Date/Time: Aug 28 2022 10:30P Dictated by : KVNG HANSON MD This examination was interpreted and the report reviewed and electronically signed by: KVNG HANSON MD on Aug 28 2022 10:47PM EST [id number] [facility] ED NOTEon 08-29-2022 ED NOTE HNO ID: [id number] Author: Manisha Galvan RN Service: Emergency Medicine Author Type: Registered Nurse Type: ED Notes Filed: 08/28/2022 10:25 PM Note Text: Report called to Hardeep SLAUGHTER on 5200. No further questions at this time. Normal [facility] ED NOTE HNO ID: [id number] Author: Manisha Galvan RN Service: Emergency Medicine Author Type: Registered Nurse Type: ED Notes Filed: 08/28/2022 10:08 PM Note Text: Report attempted to 2100 at this time, No RN available. Will call back. [facility] NURSING PROGon 08-29-2022 NURSING PROG HNO ID: [id number] Author: Hardeep Vazquez RN Service: Nursing Author Type: Registered Nurse Type: Nursing Progress Note Filed: 08/29/2022 12:00 AM Note Text: Pt came to the floor in 10/10 pain. Complaining of constant muscle spasms. Oxycodone administered. Patient irritation worsened. Hernan Kaiser of ortho team notified. Flexeril ordered for muscle spasms and verbal order to give 2mg of morphine 20 minutes early. Will continue to monitor. [facility] OPERATIVE NOon 08-29-2022 OPERATIVE NO HNO ID: [id number] Author: Johnson Zavala MD Service: Orthopaedic Surgery Author Type: Physician Type: Operative Report Filed: 08/30/2022 8:03 AM Note Text: ORTHOPAEDIC OPERATIVE REPORT PATIENT NAME: Sae Kapadia Surgery/Procedure Date: 08/29/2022 Incision/Procedure Start Time: 11:14 AM Incision Close/Procedure End Time: 1:00 PM Surgeon(s) and Telecommunications Field Technician(s): Surgeon(s) and Role: * Johnson Zavala MD - Primary No Additional Staff Mayela Fisher - 4 - assisting PRE-OPERATIVE DIAGNOSIS: Left subtrochanteric femur fracture POST-OPERATIVE DIAGNOSIS: Left subtrochanteric femur fracture SURGICAL PROCEDURE(S): Intramedullary nail placement left subtrochanteric femur fracture Anesthesia: General + regional block per Anesthesia Implantable Devices: Synthes long TFNA (10 mm x 420 mm) Complications: None Specimens: None Estimated Blood Loss: 200 mls OPERATIVE INDICATIONS: This a 61-year-old male who sustained injury to his left hip during a fall from a silo 08/28/2022; clinical examination and imaging studies demonstrated an atypical left subtrochanteric femur fracture with evidence of local stress reaction. He has been utilizing zoledronic acid as part of treatment for metastatic prostate cancer. Risks and benefits of operative stabilization with intramedullary nail placement left subtrochanteric femur fracture were reviewed in detail with patient and , and all questions answered. OPERATIVE PROCEDURE: The patient was brought to the operating room on the hospital bed. He was intubated per Anesthesia. The patient was then transferred to the operating table. The left lower extremity was placed in the traction set-up; imaging demonstrated the ability to obtain relative reduction for fracture fixation. The left lower extremity was pre-washed with chlorhexidine. It was padded prepped and sterilely draped for the procedure. The [facility] timeout protocol was performed. A skin incision was made over the fracture site laterally after identifying the level with imaging. Electrocautery was used for hemostasis. Exposure was continued to the fascia which was split in line with the surgical incision. Abundant fracture hematoma was evacuated. Local soft tissue was reflected from the displaced fracture site; no evidence of bone tumor involvement was noted clinically or radiographically. Reduction maneuvers were performed with bone forceps to align the subtrochanteric fracture. A skin incision was made with scalpel over the greater trochanter laterally on the thigh, followed by electrocautery for hemostasis. Exposure was carried down to the fascia, which was incised in line with the surgical incision. A sharp guidewire was placed in the trochanteric starting point and passed into the proximal femur. An opening reamer was used. A base ply hand was used to create a path for a long ball-tipped guidewire to be passed from proximal to distal across the fracture site within the femur. Length was measured at 420 mm. Sequential reaming up to 12 mm was performed. The Synthes femoral nail (long TFNA) was passed into the femur across the fracture site. Position was confirmed with imaging in multiple planes. A second incision was made for placement of a lag screw across the femoral neck into the head. Bone quality was noted to be very hard and careful drilling and tapping was performed prior to lag screw placement. Finally, a distal locking screw was applied through the nail from lateral to media via a percutaneous incision. Final images demonstrated appropriate fracture reduction and hardware position. The wounds were irrigated with saline. Closure of the deep subcutaneous soft tissues was performed with 0 vicryl suture followed by buried interrupted 2-0 vicryl suture in the superficial soft tissues. A running Monocryl closure was performed on the skin layers. Sterile dressings were applied. All draping was removed. The patient was extubated per Anesthesia. He was returned to the hospital bed and taken to the recovery room in stable condition. POST-OPERATIVE PLAN: Weight bearing as tolerated left lower extremity with physical and occupational therapy. Pain control. DVT prophylaxis - Lovenox 40 mg subcutaneously daily x 21 days. Change mepilex dressings prior to discharge. Potential discharge to home after hospital stay. Updated regarding post-surgical state. I/primary surgeon/proceduralist performed the procedure with assistance. SIGNATURE: Johnson Zavala MD DATE: August 30, 2022 TIME: 7:08 AM Normal [facility] PT panel Coag (PPP)on 2022 INR Coag (PPP) [Relative time] 1.0 {INR} Normal 0.9-1.3 [facility] Comment on above: Order Comment: Speci men Type: BLOOD SPECIMEN Ordering Facility: [facility] Address: [address] [place] [id number] Result Comment: Nena min K Antagonist (VKA) Therapeutic Range: INR 2 to 3 (Target INR of 2.5) Note: For patients treated with VKA drugs, such as warfarin, the [employer] 2012 Guideline recommends a therapeutic INR range of 2 to 3 (target INR of 2.5). This recommendation includes high-risk patients with antiphospholipid syndrome with previous arterial or venous thromboembolism, current-generation mechanical or bioprosthetic aortic heart valve replacement. Note: Patients with mechanical aortic valve replacement and additional risk factors for thromboembolic events (atrial fibrillation, previous thromboembolism, LV dysfunction, hypercoagulable conditions) or an older generation mechanical AVR (i.e., ball in-Cage) or any mechanical MVR should have a INR therapeutic range of 2.5 to 3.5 (target INR of 3). Aidantt GH, et al. Chest 2012, 141:7S-47S Jere RA, et al. [facility] 2017, 70: 252-289 Performed By: #### 5 7021-8 #### [facility]OR[facility] CLIA [id number] [address] PT Coag (PPP) [Time] 10.3 s Normal 9.7-13.0 [facility] Comment on above: Order Comment: Speci men Type: BLOOD SPECIMEN Ordering Facility: [facility] Address: [address] [place] [address] Performed By: #### 5 7021-8 #### [facility] CLIA [id number] [address] TYPE + SCREENon 08-29-2022 ABO A Normal [facility] Comment on above: Order Comment: Speci men Type: BLOOD SPECIMENOrdering Facility: [facility] Address: [address] [address] Performed By: #### T SCR ####[facility] BLOOD BANKCLIA [id number] [address] HISTORICAL AB SCR STATUS Negative [facility] Comment on above: Order Comment: Speci men Type: BLOOD SPECIMENOrdering Facility: [facility] Address: [address] [place] [address] Performed By: #### T SCR ####[facility] BLOOD BANKCLIA [id number] [address] Rh Nom (Bld) Positive Normal [facility] Comment on above: Order Comment: Speci men Type: BLOOD SPECIMENOrdering Facility: [facility] Address: [address] [address] Performed By: #### T SCR ####[facility] BLOOD BANKCLIA [id number] [address] TYPE AND SCREEN EXPIRATION 09/01/2022 23:59 Normal [facility] Comment on above: Order Comment: Speci men Type: BLOOD SPECIMENOrdering Facility: [facility] Address: [place] [address] Performed By: #### T SCR ####[facility] BLOOD BANKCLIA [id number] [place] [address] [place] XR FEMUR 2V AP/LAT LTon 08-18 XR FEMUR 2V AP/LAT LT * * *Final Report* * * DATE OF EXAM: Aug 29 2022 2:14PM AKX 5332 - XR FEMUR 2V AP/LAT LT / PROCEDURE REASON: Fracture, femur * * * * Physician Interpretation * * * * HISTORY: [id number] MALE WITH Fracture, femur. POST OP LEFT FEMUR TECHNIQUE: XR FEMUR 2V AP/LAT LT Laterality: LEFT Number of different views (projections): 2 COMPARISON: 08/28/2022 RESULT: Since the previous examination status post intramedullary nail with proximal compression and distal interlocking screw for a subcutaneous trochanteric proximal femoral fracture.. Alignment is near anatomic. IMPRESSION: OPEN REDUCTION INTERNAL FIXATION PROXIMAL FEMORAL FRACTURE. 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: BASHIR Transcribe Date/Time: Aug 29 2022 2:40P Dictated by : DENI BUCHANAN MD This examination was interpreted and the report reviewed and electronically signed by: DENI BUCHANAN MD on Aug 29 2022 2:42PM EST [id number] Normal [facility] XR FEMUR 2V AP/LAT LT * * *Final Report* * * DATE OF EXAM: Aug 29 2022 12:38PM [facility] 5332 - XR FEMUR 2V AP/LAT LT / PROCEDURE REASON: FX * * * * Physician Interpretation * * * * HISTORY: 61-YEAR-OLD MALE, intraoperative imaging TECHNIQUE: XR FEMUR 2V AP/LAT LT Laterality: Left Number of different views (projections): 9 RESULT: 9 intraoperative fluoroscopic images were obtained for placement of intramedullary nail for a subtrochanteric fracture. IMPRESSION: INTRAOPERATIVE IMAGING FOR INTRAMEDULLARY NAIL PLACEMENT 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: [facility] Transcribe Date/Time: Aug 29 2022 2:42P Dictated by : DENI BUCHANAN MD This examination was interpreted and the report reviewed and electronically signed by: DENI BUCHANAN MD on Aug 29 2022 2:43PM EST [id number] Normal [facility] aPTT PPPon 08-29-2022 aPTT Coag (PPP) [Time] 27.3 s Normal 23.0-32.4 [facility] Comment on above: Order Comment: Speci men Type: BLOOD SPECIMEN Ordering Facility: [facility] Address: [address] [address] Performed By: #### 5 7021-8 #### [facility] CLIA [id number] [address] CBC panel Auto (Bld)on 08-28 Erythrocyte distribution width (RBC) [Ratio] 12.4 % Normal 11.5-15.0 [facility] Comment on above: Order Comment: Speci men Type: BLOOD SPECIMEN Ordering Facility: [facility] Address: [address] [address] Performed By: #### 5 7021-8 #### [facility] CLIA [id number] [address] [place] [address] OF [facility] Hematocrit (Bld) [Volume fraction] 41.3 % Normal 39.0-51.0 [facility] Comment on above: Order Comment: Speci men Type: BLOOD SPECIMEN Ordering Facility: [facility] Address: [address] [place] [address] Performed By: #### 5 7021-8 #### [facility] CLIA [id number] [address] [place] [address] OF [facility] Hemoglobin (Bld) [Mass/Vol] 13.8 g/dL Normal 13.0-17.0 [facility] Comment on above: Order Comment: Speci men Type: BLOOD SPECIMEN Ordering Facility: [facility] Address: [address] [address] Performed By: #### 5 7021-8 #### [facility] CLIA [id number] [address] [place] [address] [place] MCH (RBC) [Entitic mass] 30.5 pg Normal 26.0-34.0 [facility] Comment on above: Order Comment: Speci men Type: BLOOD SPECIMEN Ordering Facility: [facility] Address: [address] [place] [address] Performed By: #### 5 7021-8 #### [facility] CLIA [id number] [address] OF [facility] MCHC (RBC) [Mass/Vol] 33.4 g/dL Normal 30.5-36.0 [facility] Comment on above: Order Comment: Speci men Type: BLOOD SPECIMEN Ordering Facility: [facility] Address: [address] [place] [address] Performed By: #### 5 7021-8 #### [facility] CLIA [id number] [address] MCV (RBC) [Entitic vol] 91.2 fL Normal 80.0-100.0 [facility] Comment on above: Order Comment: Speci men Type: BLOOD SPECIMEN Ordering Facility: [facility] Address: [address] [place] [address] Performed By: #### 5 7021-8 #### [facility] CLIA [id number] [address] Platelet mean volume (Bld) [Entitic vol] 9.8 fL Normal 9.0-12.7 [facility] Comment on above: Order Comment: Speci men Type: BLOOD SPECIMEN Ordering Facility: [facility] Address: [address] [address] Performed By: #### 5 7021-8 #### [facility] CLIA [id number] [address] OF [place] Platelets (Bld) [#/Vol] 198 10*3/uL Normal 150-400 [facility] Comment on above: Order Comment: Speci men Type: BLOOD SPECIMEN Ordering Facility: [facility] Address: [address] [place] [address] Performed By: #### 5 7021-8 #### [facility] CLIA [id number] [address] RBC (Bld) [#/Vol] 4.53 10*6/uL Normal 4.20-6.00 [facility] Comment on above: Order Comment: Speci men Type: BLOOD SPECIMEN Ordering Facility: [facility] Address: [address] [place] [address] Performed By: #### 5 7021-8 #### [facility] CLIA [id number] [address] WBC (Bld) [#/Vol] 5.58 10*3/uL Normal 3.70-11.00 [facility] Comment on above: Order Comment: Speci men Type: BLOOD SPECIMEN Ordering Facility: [facility] Address: [address] [place] [address] Performed By: #### 5 7021-8 #### [facility] CLIA [id number] [address] Comprehensive metabolic 2000 panelon 08-28-2022 Albumin [Mass/Vol] 4.2 g/dL Normal 3.9-4.9 [facility] Comment on above: Order Comment: Speci men Type: BLOOD SPECIMENOrdering Facility: [facility] Address: [address] [place] [address] Performed By: #### 3 040-3, 36602-3 ####[facility] [place] LABCLIA [id number] [address] ALP [Catalytic activity/Vol] 51 U/L Normal 38-113 [facility] Comment on above: Order Comment: Speci men Type: BLOOD SPECIMENOrdering Facility: [facility] Address: [address] [place] [address] Performed By: #### 3 040-3, 89086-5 ####[facility] [place] LABCLIA [id number] [address] ALT With P-5'-P [Catalytic activity/Vol] 22 U/L Normal 10-54 [facility] Comment on above: Order Comment: Speci men Type: BLOOD SPECIMENOrdering Facility: [facility] Address: [address] [address] Performed By: #### 3 040-3, 92872-7 ####[facility] LABCLIA [id number] [facility] [place] [address] [place] Anion gap [Moles/Vol] 14 mmol/L Normal 9-18 [facility] Comment on above: Order Comment: Speci men Type: BLOOD SPECIMENOrdering Facility: [facility] Address: [address] [place] [address] Performed By: #### 3 040-3, 54544-8 ####[facility] LABCLIA [id number] [place] [address] [place] AST With P-5'-P [Catalytic activity/Vol] 25 U/L Normal 14-40 [facility] Comment on above: Order Comment: Speci men Type: BLOOD SPECIMENOrdering Facility: [facility] Address: [address] [place] [address] Performed By: #### 3 040-3, 30781-0 ####[facility] LABCL[facility] [id number] [place] [address] [place] Bilirubin [Mass/Vol] 0.4 mg/dL Normal 0.2-1.3 [facility] Comment on above: Order Comment: Speci men Type: BLOOD SPECIMENOrdering Facility: [facility] Address: [address] [address] Performed By: #### 3 040-3, 26804-4 ####[facility] [place] LABCLIA [id number] [place] [address] [place] Calcium [Mass/Vol] 9.2 mg/dL Normal 8.5-10.2 [facility] Comment on above: Order Comment: Speci men Type: BLOOD SPECIMENOrdering Facility: [facility] CLINIC Address: [address] [place], [place] [id number] Performed By: #### 3 040-3, 49996-2 ####[facility] [place] LABCLIA [id number] [place] [address] [place] Chloride [Moles/Vol] 103 mmol/L Normal 97-105 [facility] Comment on above: Order Comment: Speci men Type: BLOOD SPECIMENOrdering Facility: [facility] Address: [address] [place] [address] Performed By: #### 3 040-3, 78556-9 ####[facility] [place] LABCLIA [id number] [place] [address] [place] CO2 [Moles/Vol] 24 mmol/L Normal 22-30 [facility] Comment on above: Order Comment: Speci men Type: BLOOD SPECIMENOrdering Facility: [facility] Address: [address] [place] [address] Performed By: #### 3 040-3, 21971-1 ####[facility] LABCL[facility] [id number] [place] [address] [place] Creatinine [Mass/Vol] 0.91 mg/dL Normal 0.73-1.22 [facility] Comment on above: Order Comment: Speci men Type: BLOOD SPECIMENOrdering Facility: [facility] Address: [address] [place] [address] Performed By: #### 3 040-3, 94599-5 ####[facility] LABCLIA [id number] [place] [address] [facility] ESTIMATED GLOMERULAR FILTRATION RATE 96 mL/min/1.73m??? Normal >=60 [facility] Comment on above: Order Comment: Speci men Type: BLOOD SPECIMENOrdering Facility: [facility] Address: [address] [place] [address] Result Comment: Lissette mated Glomerular Filtration Rate (eGFR) is calculated using the 2020 CKD-EPI creatinine equation. This equation utilizes serum creatinine, sex, and age as parameters. The creatinine assay has traceable calibration to isotope dilution-mass spectrometry. Refer to KDIGO guidelines for clinical interpretation. In patients with unstable renal function, e.g. those with acute kidney injury, the eGFR may not accurately reflect actual GFR. Performed By: #### 3 040-3, 02294-4 ####[facility] LABCLIA [id number] [place] [address] [place] Glucose [Mass/Vol] 189 mg/dL High 74-99 [facility] Comment on above: Order Comment: Suleman anderson Type: BLOOD SPECIMENOrdering Facility: [facility] Address: [address] [place], [place] [phone] Result Comment: The [place] Diabetes Association (ADA) provides guidance for cutoff values for fasting glucose and random glucose. The ADA defines fasting as no caloric intake for at least 8 hours. Fasting plasma glucose results between 100 to 125 mg/dL indicate increased risk for diabetes (prediabetes). Fasting plasma glucose results greater than or equal to 126 mg/dL meet the criteria for diagnosis of diabetes. In the absence of unequivocal hyperglycemia, results should be confirmed by repeat testing. In a patient with classic symptoms of hyperglycemia or hyperglycemic crisis, random plasma glucose results greater than or equal to 200 mg/dL meet the criteria for diagnosis of diabetes. Reference: Standards of Medical Care in Diabetes 2016, [place] Diabetes Association. Diabetes Care. 2016.39(Suppl 1). Performed By: #### 3 040-3, 17730-8 ####[facility] LABCLIA [id number] [place] [address] [place] Potassium [Moles/Vol] 4.0 mmol/L Normal 3.7-5.1 [facility] Comment on above: Order Comment: Suleman anderson Type: BLOOD SPECIMENOrdering Facility: [facility] Address: [address] [place] [address] Performed By: #### 3 040-3, 26547-5 ####[facility] LABCLIA [id number] [place] [address] [place] Protein [Mass/Vol] 6.6 g/dL Normal 6.3-8.0 [facility] Comment on above: Order Comment: Speci men Type: BLOOD SPECIMENOrdering Facility: [facility] Address: [address] Performed By: #### 3 040-3, 54354-3 ####[facility] LABCLIA [id number] [place] [address] [facility] Sodium [Moles/Vol] 141 mmol/L Normal 136-144 [facility] Comment on above: Order Comment: Speci men Type: BLOOD SPECIMENOrdering Facility: [facility] Address: [address] [place] [address] Performed By: #### 3 040-3, 04297-3 ####[facility] LABCLIA [id number] [place] [address] [facility] [place] Urea nitrogen [Mass/Vol] 24 mg/dL Normal 9-24 [facility] Comment on above: Order Comment: Speci men Type: BLOOD SPECIMENOrdering Facility: [facility] Address: [place] [address] Performed By: #### 3 040-3, 25124-1 ####[facility] LABCLIA [id number] [place] [address] [facility] ED NOTEon 08-28-2022 ED NOTE HNO ID: [id number] Author: Manisha Galvan RN Service: Emergency Medicine Author Type: Registered Nurse Type: ED Notes Filed: 08/28/2022 9:25 PM Note Text: CT notified pt is ready for ordered imaging Normal [facility] ED NOTE HNO ID: [id number] Author: Dinorah Aaron RN Service: Emergency Medicine Author Type: Registered Nurse Type: ED Notes Filed: 08/28/2022 7:47 PM Note Text: Report given to transport team. Family and pt have no other questions at this time Normal [facility] ED NOTE HNO ID: [id number] Author: Alaina Cano RN Service: ? Author Type: Registered Nurse Type: ED Notes Filed: 08/28/2022 7:04 PM Note Text: Dr Olivo at bedside to perform nerve block Normal [facility] ED NOTE HNO ID: [id number] Author: Alaina Cano RN Service: ? Author Type: Registered Nurse Type: ED Notes Filed: 08/28/2022 4:30 PM Note Text: Pt arrives via [facility] Reports falling approx 15 ft into silo Denies LOC Denies head/neck/back/abdominal pain Arrives with left upper leg obvious deformity Dr Olivo at bedside Normal 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 He denies that he hit his head or sustain loss of consciousness. He has no other pain other than pain in the left hip/femur area. He was transported by EMS unable to ambulate with left femur deformity. He denies previous fracture at the site. No neck pain back pain chest pain abdominal pain. No numbness or tingling. He denies being on anticoagulants. PAST MEDICAL HISTORY Diagnosis Date Cancer (HCC) Hyperlipemia Hypertension Mitral valve disorders(424.0) History reviewed. No pertinent surgical history. FAMILY HISTORY Problem Relation Age of Onset Hypertension Mother Hypertension Father Hypertension Sister Hypertension Brother Cancer Paternal Grandmother other (ANURYSM [Other]) Maternal Grandmother Heart Maternal Grandfather Prostate Cancer Father Social History Tobacco Use Smoking status: Never Smokeless tobacco: Never Substance and Sexual Activity Alcohol use: Yes Comment: OCCASSIONAL SOCIALLY Drug use: No Sexual activity: Yes Partners: Female ALLERGIES No Known Allergies Review of Systems All other systems reviewed and are negative. Physical Exam Vitals BP Pulse Temp Temp src Resp SpO2 Weight Height 08/28/22 1622 08/28/22 1621 08/28/22 1621 08/28/22 1621 08/28/22 1621 08/28/22 1621 08/28/22 1621 -- 181/102 82 (!) 35.6 ?C (96 ?F) Temporal 16 98 % 90.7 kg (200 lb) Physical Exam HENT: Head: Normocephalic and atraumatic. Right Ear: Tympanic membrane, ear canal and external ear normal. Left Ear: Tympanic membrane, ear canal and external ear normal. Nose: Nose normal. Mouth/Throat: Mouth: Mucous membranes are moist. Eyes: Extraocular Movements: Extraocular movements intact. Pupils: Pupils are equal, round, and reactive to light. Cardiovascular: Rate and Rhythm: Normal rate and regular rhythm. Pulses: Normal pulses. Heart sounds: Normal heart sounds. Pulmonary: Effort: Pulmonary effort is normal. Breath sounds: Normal breath sounds. Chest: Chest wall: No tenderness. Abdominal: Palpations: Abdomen is soft. There is no mass. Tenderness: There is no abdominal tenderness. There is no right CVA tenderness or left CVA tenderness. Genitourinary: Comments: Pelvic bones stable Musculoskeletal: Cervical back: No tenderness. Comments: Left proximal femur deformity noted with foreshortening and external rotation of the left lower extremity. No distal femur or knee tenderness to palpation. No TLS spine tenderness in the midline. No other extremity bony tenderness throughout. Skin: General: Skin is warm and dry. Capillary Refill: Capillary refill takes less than 2 seconds. Comments: A few faint abrasions noted to the left upper extremity but no bony tenderness contusion noted to the left proximal femur region. Neurological: Mental Status: He is alert. Cranial Nerves: No cranial nerve deficit. Sensory: No sensory deficit. Comments: Distal motor intact to the left lower extremity but significant reduced range of motion of the hip no other motor deficit noted on exam. Psychiatric: Mood and Affect: Mood normal. Diagnostic Testing ED Labs Ordered and Reviewed COMP METABOLIC PANEL - Abnormal; Notable for the following components: Result Value Ref Range Glucose 189 (*) 74 - 99 mg/dL All other components within normal limits ALCOHOL/ETHANOL BLD - Normal CBC - Normal LIPASE BLD - Normal PROTHROMBIN TIME/PT - Normal ACTIVATED PTT - Normal Narrative: Unfractionated Heparin Therapeutic Ranges: Standard Heparin Nomogram: 53 to 78 seconds (anti-Xa level of 0.3 to 0.7 U/ml) Low Dose/ACS Nomogram: 49 to 67 seconds (anti-Xa level of 0.2 to 0.5 U/ml) Stroke Treatment Nomogram: 49 to 67 seconds (anti-Xa level of 0.2 to 0.5 U/ml) Note: The APTT therapeutic range has been determined for the current lot of laboratory APTT reagent in use throughout the [facility]. URINALYSIS, WITH MICROSCOPIC - Normal Ultrasound Guided Peripheral Nerve Block US NERVE BLOCK (POC) ED USE ONLY ([place], NO AC) Date/Time: 08/28/2022 6:48 PM Performed by: Hardeep Olivo MD Authorized by: Hardeep Olivo MD Indication: Patient requires injection for administration of anesthetic for pain management and/or procedural analgesia. US Procedure: Informed consent obtained either written or verbal. Using the linear probe covered in a sterile fashion, the Other (see comments) (Fascia iliaca compartment block, left) nerves w (more content not included)... Normal [facility] Ethanol SerPl-mCncon 023 Ethanol [Mass/Vol] mg/dL Normal <11 [facility] Comment on above: Order Comment: Speci men Type: BLOOD SPECIMENOrdering Facility: [facility] Address: [address] [place], [place] [phone] Performed By: #### 5 643-2 ####[facility] LABCLMI [id number] [place] [address] [place] [facility] HISTORY PHYSICALon 3 HISTORY PHYSICAL HNO ID: [id number] Author: Johnson Zavala MD Service: Orthopaedic Surgery Author Type: Physician Type: HANDP Filed: 08/29/2022 10:29 AM Note Text: Orthopaedic Surgery History and Physical Chief Complaint: Left hip pain Admitting Physician: Dr. Zavala Date: August 28, 2022 Time: 9:27 PM ORTHO STAFF: History and physical examination reviewed. Patient seen and examined. Agree with orthopaedic resident assessment and plan. Reviewed images with patient and family demonstrating a transverse subtrochanteric femur fracture with local stress reaction likely secondary to bisphosphonate therapy. Discussed risks and benefits of operative stabilization with intramedullary nail placement. Advanced imaging did not suggestive bone involvement secondary to known metastatic prostate cancer. Anticipate weight bearing as tolerated with therapy after procedure. Answered all questions. Johnson Zavala MD History of Present Illness Sae D Kapadia is a 61 year old male who presents with left hip pain. Patient was initially seen after a fall off a silo at an outside emergency department. He was found to have a subtrochanteric left femur fracture. He was transferred here for further orthopedic evaluation. He denies any previous pain before falling. He does state that he has metastatic prostate cancer in his lymph nodes and bones. And is being treated for it. He does take bisphosphonates. He denies any numbness or tingling. Denies any other complaints at this time. Review of Systems A 10-point review of systems was completed and is otherwise non-contributory to the patient's presenting condition. History PAST MEDICAL HISTORY Diagnosis Date Cancer (HCC) Hyperlipemia Hypertension Mitral valve disorders(424.0) No past surgical history on file. HEPATITIS C SCREENING Never done HIV SCREENING Never done COLORECTAL CANCER SCREENING Never done DTAP,TDAP,TD(1 - Tdap) due on 11/04/2006 SHINGRIX VACCINE(1 of 2) Never done COVID-19 VACCINE(4 - Booster for Moderna series) due on 05/24/2021 DEPRESSION ASSESSMENT Never done PROSTATE CANCER SCREENING DISCUSSION due on 09/28/2022 DIABETES SCREEN due on 08/28/2025 LIPID SCREEN due on 03/18/2027 INFLUENZA Completed A review of the patient's history was completed and is otherwise non-contributory to the patient's presenting condition. Medications rosuvastatin (CRESTOR) 10 mg tabletDisp: Rfl: losartan (COZAAR) 50 mg tabletDisp: Rfl: abiraterone 500 mg tabletDisp: Rfl: predniSONE (DELTASONE) 10 mg tablet5 mg.Disp: Rfl: venlafaxine (EFFEXOR) 37.5 mg tabletDisp: Rfl: leuprolide acetate (LUPRON DEPOT INTRAMUSC.)Inject intramuscularly.Disp: Rfl: zoledronic acid (ZOMETA INTRAVENOUS)Inject intravenously.Disp: Rfl: NAPROXEN 500 MG TABTake one(1) tablet twice daily as needed for pain, with food.Disp: 60Rfl: 1 Allergies Patient has no known allergies. Family History Family History Reviewed Including Cardiac Diseases, Psychiatric Diseases, AND Substance Abuse Problem: Hypertension Relation: Mother Age of Onset: (Not Specified) Problem: Hypertension Relation: Father Age of Onset: (Not Specified) Problem: Hypertension Relation: Sister Age of Onset: (Not Specified) Problem: Hypertension Relation: Brother Age of Onset: (Not Specified) Problem: Cancer Relation: Paternal Grandmother Age of Onset: (Not Specified) Problem: other (ANURYSM [Other]) Relation: Maternal Grandmother Age of Onset: (Not Specified) Problem: Heart Relation: Maternal Grandfather Age of Onset: (Not Specified) Problem: Prostate Cancer Relation: Father Age of Onset: (Not Specified) Social History Employer And Job Title: [employer]) Years Of Education Completed: 12 years Marital Status: to [place] with 1 child Social History Tobacco Use Smoking status: Never Smokeless tobacco: Never Substance Use Topics Alcohol use: Yes Comment: OCCASSIONAL SOCIALLY Drug use: No Physical Examination Vitals BP 161/94 Pulse 80 Temp 36.5 ?C (97.7 ?F) (Oral) Resp 20 Ht 188 cm (6' 2) Wt 90.7 kg (200 lb) SpO2 95% BMI 25.68 kg/m? General Alert and oriented. NAD. Skin No rashes or lesions. Appropriate skin turgor. Cardiovascular RRR. Peripheral pulses symmetric. Pulmonary Non-labored breathing on room air. Symmetric chest expansion. GI/Abdomen Abdomen soft, non-tender, and non-distended. Neuro CN II-XII grossly intact. Psych Appropriate mood and affect. Left Lower Extremity No open wounds or abrasions noted over Left hip or buttock. Left leg slightly shortened and externally rotated. Compartments of the thigh and leg are soft and compressible Tolerates passive stretch of the digits There is TTP in anterior left hip. Logroll not performed due to known fracture. +DF/PF/EHL. SILT mcdonough/sa/sp/dp/t. Palpable DP/PT pulse. BCR of toes. Components of the patient's physical exami (more content not included)... Normal [facility] Lipase SerPl-cCncon 08-29-19 23 Lipase [Catalytic activity/Vol] 22 U/L Normal 16-61 [facility] Comment on above: Order Comment: Speci men Type: BLOOD SPECIMENOrdering Facility: [facility] Address: [address] [place] [address] Performed By: #### 3 040-3, 78449-7 ####[facility] [place] LABCLIA [id number] [place] [address] [place] PT panel Coag (PPP)on 2022 INR Coag (PPP) [Relative time] 1.0 {INR} Normal 0.9-1.3 [facility] Comment on above: Order Comment: Sulemna anderson Type: BLOOD SPECIMEN [facility] Address: [place] [address] Result Comment: Nena min K Antagonist (VKA) Therapeutic Range: INR 2 to 3 (Target INR of 2.5) Note: For patients treated with VKA drugs, such as warfarin, the [place] [employer] 2012 Guideline recommends a therapeutic INR range of 2 to 3 (target INR of 2.5). This recommendation includes high-risk patients with antiphospholipid syndrome with previous arterial or venous thromboembolism, current-generation mechanical or bioprosthetic aortic heart valve replacement. Note: Patients with mechanical aortic valve replacement and additional risk factors for thromboembolic events (atrial fibrillation, previous thromboembolism, LV dysfunction, hypercoagulable conditions) or an older generation mechanical AVR (i.e., ball in-Cage) or any mechanical MVR should have a INR therapeutic range of 2.5 to 3.5 (target INR of 3). Chitra GH, et al. Chest 2012, 141:7S-47S Jere RA, et al. [facility] 2017, 70: 252-289 Performed By: #### 5 7021-8 #### [facility] CLIA [id number] [address] PT Coag (PPP) [Time] 9.9 s Normal <13.1 [facility] Comment on above: Order Comment: Suleman anderson Type: BLOOD SPECIMEN [facility] Address: [place] [id number] Performed By: #### 5 7021-8 #### [facility] CLIA [id number] [address] STATES OF [facility] Urinalysis complete panel (U )on 08-28-2022 Bilirubin Ql (U) Negative Normal Negative [facility] Comment on above: Order Comment: Speci men Type: URINE SPECIMENOrdering Facility: [facility] Address: [address] [place] [address] Performed By: #### 2 4356-8 ####[facility] [place] LABCLIA [id number] [place] [address] [facility] [place] Clarity (Unsp spec) Clear Normal Clear [facility] Comment on above: Order Comment: Speci men Type: URINE SPECIMENOrdering Facility: [facility] Address: [address] [place] [address] Performed By: #### 2 4356-8 ####[facility] LABCLIA [id number] [place] [address] [facility] Color (U) Yellow Normal Yellow [facility] Comment on above: Order Comment: Speci men Type: URINE SPECIMENOrdering Facility: [facility] Address: [address] [place] [address] Performed By: #### 2 4356-8 ####[facility] LABCLIA [id number] [place] [address] [facility] [place] Glucose Test strip (U) [Mass/Vol] Negative Normal Negative [facility] Comment on above: Order Comment: Speci men Type: URINE SPECIMENOrdering Facility: [facility] Address: [address] [place] [address] Performed By: #### 2 4356-8 ####[facility] LABCLIA [id number] [place] [address] [place] Hemoglobin Ql (U) Negative Normal Negative [facility] Comment on above: Order Comment: Speci men Type: URINE SPECIMENOrdering Facility: [facility] Address: [address] [place] [address] Performed By: #### 2 4356-8 ####[facility] LABCLIA [id number] [place] [address] [facility] [place] Ketones Ql (U) Negative Normal Negative [facility] Comment on above: Order Comment: Speci men Type: URINE SPECIMENOrdering Facility: [facility] Address: [address] [place] [address] Performed By: #### 2 4356-8 ####[facility] LABCLIA [id number] [place] [address] [facility] Leukocyte esterase Test strip Ql (U) Negative Normal Negative [facility] Comment on above: Order Comment: Speci men Type: URINE SPECIMENOrdering Facility: [facility] Address: [address] [place] [address] Performed By: #### 2 4356-8 ####[facility] [place] LABCLIA [id number] [address] Nitrite Ql (U) Negative Normal Negative [facility] Comment on above: Order Comment: Speci men Type: URINE SPECIMENOrdering Facility: [facility] Address: [address] [place] [address] Performed By: #### 2 4356-8 ####[facility] [place] LABCLIA [id number] [address] [place] pH (U) 6.5 [pH] Normal 5.0-8.0 [facility] Comment on above: Order Comment: Speci men Type: URINE SPECIMENOrdering Facility: [facility] Address: [address] [place] [address] Performed By: #### 2 4356-8 ####[facility] [place] LABCLIA [id number] [place] [id number] [facility] Protein (U) [Mass/Vol] Negative Normal Negative [facility] Comment on above: Order Comment: Speci men Type: URINE SPECIMENOrdering Facility: [facility] Address: [address] [place] [address] Performed By: #### 2 4356-8 ####[facility] [place] LABCLIA [id number] [place] [address] [facility] [place] RBC LM.HPF (Urine sed) [#/Area] 0-3 /HPF Normal 0-3 /HPF [facility] Comment on above: Order Comment: Speci men Type: URINE SPECIMENOrdering Facility: [facility] Address: [address] [place] [address] Performed By: #### 2 4356-8 ####[facility] LABCLIA [id number] [place] [id number] [facility] Specific gravity (U) [Rel density] 1.025 Normal 1.005-1.03 0 [facility] Comment on above: Order Comment: Speci men Type: URINE SPECIMENOrdering Facility: [facility] Address: [address] [place] [address] Performed By: #### 2 4356-8 ####[facility] LABCLIA [id number] [address] Urobilinogen Ql (U) 0.2 EU/dL Normal 0.2-1.0 EU/dL [facility] Comment on above: Order Comment: Speci men Type: URINE SPECIMENOrdering Facility: [facility] Address: [address] [place] [address] Performed By: #### 2 4356-8 ####[facility] LABCLIA [id number] [address] WBC LM.HPF (Urine sed) [#/Area] 0-5 /HPF Normal 0-5 /HPF [facility] Comment on above: Order Comment: Speci men Type: URINE SPECIMENOrdering Facility: [facility] Address: [address] [place] [address] Performed By: #### 2 4356-8 ####[facility] LABCLIA [id number] [place] [id number] [facility] XR CHEST 1V FRONTALon 2022 XR CHEST 1V FRONTAL * * *Final Report* * * DATE OF EXAM: Aug 28 2022 6:33PM LDX 5290 - XR CHEST 1V FRONTAL / PROCEDURE REASON: Chest pain, nonspecific * * * * Physician Interpretation * * * * EXAMINATION: CHEST RADIOGRAPH (SINGLE VIEW AP OR PA) CLINICAL HISTORY: Chest pain, nonspecific, Polytrauma, blunt MQ: XC1_5 Comparison: 05/11/2021. RESULT: Lines, tubes, and devices: None. Lungs and pleura: No consolidation. No pleural effusion. No pneumothorax. Cardiomediastinal silhouette: Unchanged. Other: No radiographic evidence of acute displaced fractures. IMPRESSION: No radiographic evidence of acute intrathoracic findings. 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: [facility] Transcribe Date/Time: Aug 28 2022 6:59P Dictated by : GAIL VEGAS MD This examination was interpreted and the report reviewed and electronically signed by: GAIL VEGAS MD on Aug 28 2022 7:02PM EST [id number] Normal [facility] XR FEMUR 2V AP/LAT LTon 08-18 XR FEMUR 2V AP/LAT LT * * *Final Report* * * DATE OF EXAM: Aug 28 2022 6:33PM LDX 5332 - XR FEMUR 2V AP/LAT LT / PROCEDURE REASON: Fracture, femur * * * * Physician Interpretation * * * * EXAMINATION: XR PELVIS 1V AP, XR FEMUR 2V AP/LAT LT Clinical History: Pelvic trauma, pain. Comparison: None RESULT: Acute, comminuted, displaced left proximal femur fracture. The pubic symphysis appears aligned. The sacral atelectasis symmetric. Degenerative changes of the lower lumbar spine and bilateral hips. No additional fractures involving the pelvis or left femur. IMPRESSION: Acute, comminuted, displaced left proximal femur fracture. 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: [employer] Transcribe Date/Time: Aug 28 2022 6:46P Dictated by : GAIL VEGAS MD This examination was interpreted and the report reviewed and electronically signed by: GAIL VEGAS MD on Aug 28 2022 6:49PM EST [id number] Normal [facility] XR PELVIS 1V APon 08-28-2022 XR PELVIS 1V AP * * *Final Report* * * DATE OF EXAM: Aug 28 2022 6:33PM LDX 5239 - XR PELVIS 1V AP / PROCEDURE REASON: Pelvic trauma * * * * Physician Interpretation * * * * EXAMINATION: XR PELVIS 1V AP, XR FEMUR 2V AP/LAT LT Clinical History: Pelvic trauma, pain. Comparison: None RESULT: Acute, comminuted, displaced left proximal femur fracture. The pubic symphysis appears aligned. The sacral atelectasis symmetric. Degenerative changes of the lower lumbar spine and bilateral hips. No additional fractures involving the pelvis or left femur. IMPRESSION: Acute, comminuted, displaced left proximal femur fracture. 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: [employer] Transcribe Date/Time: Aug 28 2022 6:46P Dictated by : GAIL VEGAS MD This examination was interpreted and the report reviewed and electronically signed by: GAIL VEGAS MD on Aug 28 2022 6:49PM EST [id number] Normal [facility] aPTT PPPon 08-28-2022 aPTT Coag (PPP) [Time] 23.6 s Normal 23.0-32.4 [facility] Comment on above: Order Comment: Speci men Type: BLOOD SPECIMEN Ordering Facility: [facility] Address: [address] [place], [place] [id number] Performed By: #### 5 [id number] #### [facility] CLIA [id number] [address] STATES OF [facility] SPINE, LUMBOSACRAL MIN 4 VIE WSon 07-08-2022 SPINE, LUMBOSACRAL MIN 4 VIEWS Patient Name: SAE KAPADIA STUDY: SPINE, LUMBOSACRAL MIN 4 VIEWS; SPINE, THORACIC, 3 VIEWS INDICATION: back pain; pain. COMPARISON: Previous thoracic spine radiographs from June 22, 2017 with slight progression from prior. ACCESSION NUMBER(S): [id number]; [id number] ORDERING CLINICIAN: ISIAH HARDING FINDINGS: Moderate lumbar and thoracic degenerative changes, particularly advanced L2-S1. Mild thoracic and lumbar S shaped scoliosis. No evidence of thoracic or lumbar fracture. IMPRESSION: Moderate lumbar and thoracic degenerative changes, particularly advanced L2-S1. Mild thoracic and lumbar S shaped scoliosis. Electronically signed by: LIVE WALKER MD [facility] SPINE, THORACIC, 3 VIEWSon 0 07-08-2022 SPINE, THORACIC, 3 VIEWS Patient Name: SAE KAPADIA STUDY: SPINE, LUMBOSACRAL MIN 4 VIEWS; SPINE, THORACIC, 3 VIEWS INDICATION: back pain; pain. COMPARISON: Previous thoracic spine radiographs from June 22, 2017 with slight progression from prior. ACCESSION NUMBER(S): [id number]; [id number] ORDERING CLINICIAN: ISIAH HARDING FINDINGS: Moderate lumbar and thoracic degenerative changes, particularly advanced L2-S1. Mild thoracic and lumbar S shaped scoliosis. No evidence of thoracic or lumbar fracture. IMPRESSION: Moderate lumbar and thoracic degenerative changes, particularly advanced L2-S1. Mild thoracic and lumbar S shaped scoliosis. Electronically signed by: LIVE WALKER MD [facility] GALLBLADDERon 07-08-2022 US GALLBLADDER Patient Name: SAE KAPADIA STUDY: US GALLBLADDER 07/08/2022 2:11 pm INDICATION: 61 y/o M with post prandial vomiting. COMPARISON: CT abdomen and pelvis 09/13/2017 ACCESSION NUMBER(S): [id number] ORDERING CLINICIAN: ISIAH HARDING TECHNIQUE: Routine ultrasound of the right upper quadrant was performed. Static images were obtained for remote interpretation. FINDINGS: LIVER: Craniocaudal length: 15.9 cm, within normal limits of size for age. Echogenicity: Normal. Mass: None. BILE DUCTS: Intrahepatic ducts: Non-dilated. Common bile duct diameter: 3 mm. GALLBLADDER: Gallbladder: Normal. Gallstones: None. Gallbladder sludge: None. Gallbladder wall thickening: None. Pericholecystic fluid: None. PANCREAS: Visualized portions are unremarkable. RIGHT KIDNEY: Craniocaudal length: 12.8 cm, within normal limits of size for age. No hydronephrosis, hydroureter or focal renal lesion. PERITONEAL FLUID: None seen in the right upper quadrant. IMPRESSION: Unremarkable ultrasound of the right upper quadrant. Electronically signed by: JUANITA HADDAD MD [facility] Absolute lymphocyte countOrd ered By: Dr. Cooney on 06-21-2022 Lymphocytes Auto (Unsp spec) [#/Vol] 1.37 10*3/uL 0.83-4.51 [facility] Basophil percentageOrdered B y: Dr. Cooney on 06-21-2022 Basophils/100 WBC (Bld) 0.5 % 0-1 [facility] Bilirubin [Mass/Vol] 0.70 mg/dL 0.20-1.00 [facility] Comment on above: For patients on eltr ombopag therapy, use of Dimension Norman TBIL is not recommended. Chloride [Moles/Vol] 107 mmol/L 98-107 [facility] Eosinophils/100 WBC (Bld) 6.5 % 0-5 [facility] Glucose [Mass/Vol] 115 mg/dL 74-106 [facility] Comment on above: Fasting Glucose resu lt from 100 to 125 mg/dL suggests IMPAIRED HOMEOSTASIS per A.D.A. criteria. Neutrophils (Bld) [#/Vol] 1.8 10*3/uL 2.0-7.7 [facility] Neutrophils/100 WBC (Bld) 44.3 % 47-70 [facility] Potassium [Moles/Vol] 3.4 mmol/L 3.5-5.1 [facility] Protein [Mass/Vol] 6.7 g/dL 6.4-8.2 [facility] Sodium [Moles/Vol] 140 mmol/L 136-145 [facility] WBC (Bld) [#/Vol] 4.0 10*3/uL 4.4-11.0 [facility] Blood erythrocytes count (nu mber/volume)Ordered By: Dr. Cooney on 06-21-2022 RBC (Bld) [#/Vol] 4.61 10*6/uL 4.6-6.2 [facility] Blood hemoglobin measurement (mass/volume)Ordered By: Dr. Cooney on 06-21-2022 Hemoglobin (Bld) [Mass/Vol] 13.9 g/dL 13.0-16.5 [facility] Blood lymphocytes/100 leukoc ytesOrdered By: Dr. Cooney on 06-21-2022 Lymphocytes/100 WBC (Bld) 34.5 % 19-41 [facility] Blood monocytes/100 leukocyt esOrdered By: Dr. Cooney on 06-21-2022 Monocytes/100 WBC (Bld) 13.9 % 0-10 [facility] Blood platelet mean volumeOr dered By: Dr. Cooney on 06-21-2022 Platelet mean volume (Bld) [Entitic vol] 9.6 fL 6.2-12.0 [facility] Determination of erythrocyte mean corpuscular volume (MCV)Ordered By: Dr. Cooney on 06-21-2022 MCV (RBC) [Entitic vol] 89.4 fL 80-94 [facility] Hematocrit Auto (Bld) [Volum e fraction]Ordered By: Dr. Cooney on 06-21-2022 Hematocrit (Bld) [Volume fraction] 41.2 % 40-54 [facility] Laboratory - Chemistry and C hemistry - challengeOrdered By: Dr. Cooney on 06-21-2022 ALP [Catalytic activity/Vol] 46 U/L 45-117 [facility] ALT [Catalytic activity/Vol] 39 U/L 16-61 [facility] CO2 [Moles/Vol] 27.0 mmol/L 21.0-32.0 [facility] Globulin (S) [Mass/Vol] 3.1 g/dL 2.2-4.2 [facility] Urea nitrogen/Creatinine [Mass ratio] 20.1 mg/mg 10-20 [facility] Laboratory - Hematology and Cell countsOrdered By: Dr. Cooney on 06-21-2022 Erythrocyte distribution width (RBC) [Entitic vol] 38.1 fL 35.1-43.9 [facility] Erythrocyte distribution width (RBC) [Ratio] 11.9 % 11.6-14.6 [facility] Immature granulocytes/100 WBC (Bld) 0.300 % 0.0-0.9 [facility] Comment on above: IG% - Immature Granu locytes (promyelocytes, myelocytes and metamyelocytes) > 1% indicates that a LEFT SHIFT is Present. MCH (RBC) [Entitic mass] 30.2 pg 27.0-32.0 [facility] Nucleated RBC/100 WBC (Bld) [Ratio] 0 % 0-5 [facility] MCHC Auto (RBC) [Mass/Vol]Or dered By: Dr. Cooney on 06-21-2022 MCHC (RBC) [Mass/Vol] 33.7 g/dL 32-36 [facility] No Panel InformationOrdered By: Dr. Cooney on 06-21-2022 Estimated Creatinine Clearance Calc 102.62 ml/min [facility] Estimated GFR (MDRD) Amer 111 mL/min >60 [facility] Comment on above: GFR Calc Estimated GFR (MDRD) Non-Af Amer 92 mL/min >60 [facility] Comment on above: Non- GFR Calc Prostate Specific Antigen Total 0.06 ng/mL 0.0-4.0 [facility] Comment on above: This test was perfor med using the TPSA assay method for the[employer] chemistry system. Values obtained with differentassay methods cannot be used interchangably.When changing PSA assays in the course of monitoring apatient, additional sequential testing should be carriedout to confirm baseline values. Platelets bldOrdered By: Dr. Cooney on 06-21-2022 Platelets (Bld) [#/Vol] 229 10*3/uL 150-450 [facility] Serum or plasma albumin pati urement (mass/volume)Ordered By: Dr. Cooney on 06-21-2022 Albumin [Mass/Vol] 3.6 g/dL 3.2-5.0 [facility] Serum or plasma albumin/glob ulin mass ratioOrdered By: Dr. Cooney on 06-21-2022 Albumin/Globulin [Mass ratio] 1.2 {ratio} 0.9-2.4 [facility] Serum or plasma calcium pati urement (mass/volume)Ordered By: Dr. Cooney on 06-21-2022 Calcium [Mass/Vol] 9.3 mg/dL 8.5-10.1 [facility] Serum or plasma creatinine m easurement (mass/volume)Ordered By: Dr. Cooney on 06-21-2022 Creatinine [Mass/Vol] 0.89 mg/dL 0.70-1.30 [facility] Comment on above: The validity of the calculated GFR & GFRAA in patients over 70 years has not been determined. Clinical correlation is essential. Serum or plasma urea nitroge n measurement (mass/volume)Ordered By: Dr. Cooney on 06-21-2022 Urea nitrogen [Mass/Vol] 18 mg/dL 7-18 [facility] Thin prep Papanicolaou smear with manual screeningOrdered By: Dr. Cooney on 06-21-2022 Thin prep Papanicolaou smear with manual screening 29 U/L 15-37 [facility] Thin prep Papanicolaou smear with manual screening 6 5-15 [facility] Office Visit (Cardiology)on 05-23-2022 Follow-up visit Diagnoses/Problems Assessed Hypertension (401.9) (I10) Dyslipidemia (272.4) (E78.5) Orders Hypertension Start: Losartan Potassium 50 MG Oral Tablet; TAKE 1 TABLET DAILY DIRECTED Unlinked Stop: Abiraterone Acetate 250 MG Oral Tablet History of Present Illness Sae Kapadia is a 61-year-old male with a h/o dyslipidemia, intermittent chest pain, prostate cancer, restless legs, presenting for his one month follow-up for the following concerns: 1. Intermittent chest pain: -Patient previously evaluated by his PCP for intermittent left-sided chest pain. Holter monitor revealed NSR with an average HR of 75 bpm and PVC burden less than 0.1%; PAC burden less than 0.1%. The monitor did reveal two occurrences of SVT with the HR reaching 211 bpm for three beats. No symptoms reported on the monitor. -His documented blood pressures in the AEMR revealed elevated blood pressure with no current medication on board. I instructed the patient and his spouse to begin checking his BP, record results, and bring in to his appointment. Patient was prescribed losartan 25mg p.o. daily at his last appointment. When I called to inform them of his test results, the reports his BP continues to be high with systolic readings averaging 160-190 with associated complaints of chest discomfort. I instructed patient to increase his losartan to 50mg daily. -Coronary calcium score on 04/28/22 was 0.95 and displayed trace pericardial effusion. Echocardiogram displayed no evidence of pericardial effusion; normal EF of 55-60%; impaired relaxation pattern of the left ventricular diastolic filling; mild asymmetric left ventricular hypertrophy. -Patient's spouse reports the patient does snore at night, but the patient declines to wear a CPAP and therefore is not interested in further testing. 2. Dyslipidemia: Lipid panel on 03/18/22 revealed cholesterol 280mg/dL; LDL 175mg/dL; patient prescribed rosuvastatin 10mg daily Today, the patient reports symptom improvement with his left-sided chest pain since the increase in the losartan dose. He continues to check his BP at home with readings averaging 120s/80s. He denies any palpitations, SOB, dizziness, syncope, or lower leg edema. Active Problems Problems Dyslipidemia (272.4) (E78.5) Encounter for immunization (V03.89) (Z23) Hot flashes (782.62) (R23.2) Hypertension (401.9) (I10) Intermittent chest pain (786.50) (R07.9) Paroxysmal supraventricular tachycardia seen on cardiac cath lab radiology technologist (427.0) (I47.1) Prostate cancer (185) (C61) RLS (restless legs syndrome) (333.94) (G25.81) Surgical History Problems No history of surgery Past Medical History Problems History of Ascending aortic aneurysm (441.2) (I71.21) History of Elevated blood pressure reading (796.2) (R03.0) Resolved Date: 23 May 2022 History of Elevated blood pressure reading (796.2) (R03.0) Resolved Date: 23 May 2022 Current Meds Medication NameInstruction Abiraterone Acetate 250 MG Oral Tablet Calcium 600 + D 600-5 MG-MCG Oral TabletTAKE 1 TABLET DAILY. Losartan Potassium 25 MG Oral TabletTake two tablets to equal 50mg daily Lupron Depot (3-Month) 11.25 MG Intramuscular Kitinjection done every 3 months for prostate cancer predniSONE 10 MG Oral TabletTake 1 tablet daily rOPINIRole HCl - 0.25 MG Oral TabletTAKE 1-2 TABLET QHS Rosuvastatin Calcium 10 MG Oral TabletTAKE 1 TABLET AT BEDTIME. Venlafaxine HCl - 37.5 MG Oral TabletTake 1 tablet daily Xgeva 120 MG/1.7ML Subcutaneous SolutionINFUSION DONE EVERY 3 MONTHS Zytiga 500 MG Oral Tablettakes 1 tablet daily Allergies Medication No Known Drug Allergies Other; Recorded By: Teri Silver; 05/23/2022 10:00:50 AM Family History Mother Family history of hypertension (V17.49) (Z82.49) Father Family history of cerebrovascular accident (CVA) (V17.1) (Z82.3) Family history of hypertension (V17.49) (Z82.49) Family history of malignant neoplasm of prostate (V16.42) (Z80.42) Sister Family history of hypertension (V17.49) (Z82.49) Family history of malignant neoplasm of breast (V16.3) (Z80.3) Brother Family history of hypertension (V17.49) (Z82.49) Family history of malignant neoplasm of prostate (V16.42) (Z80.42) Paternal Grandmother Family history of malignant neoplasm of breast (V16.3) (Z80.3) Paternal Grandfather Family history of malignant neoplasm of colon (V16.0) (Z80.0) Social History Problems Never used tobacco (V49.89) (Z78.9) No caffeine use No illicit drug use Very rarely consumes alcohol (V49.89) (Z78.9) Review of Systems A 10-point system review was completed and was negative except as noted in the HPI. Vitals Vital Signs Recorded: 23May2022 09:56AM Heart Rate72 Hjdkmtty857 Jykojzine82 Height6 ft 2 in Uixziy449 lb 8 oz BMI Lrlmegpwko76.36 kg/m2 BSA Calculated2.16 Tobacco Useb) No Falls Screening (Age 18+)a) No falls within the last year O2 Bvwqpvvvni70 Physical Exam General: awake, alert and oriented. No acute di (more content not included)... Normal [facility] Tobacco Screening.on 023 Fall risk assessment a) No falls within the last year [facility] Work Phone: Tobacco use status CP b) No [facility] [employer] Work Phone: Chart Updateon 05-12-2022 Chart Update Orders Hypertension Renew: Losartan Potassium 25 MG Oral Tablet; Take two tablets to equal 50mg daily Rx By: Glenn Norris; Dispense: 0 Days ; #:60 Tablet; Refill: 0;For: Hypertension; NEGRITO = N; Sent To: [facility] Chart Update Patient's called and updated on echo and coronary calcium results. Patient continues to have high BPs with systolic readings averaging 160-190 when he has complaints of chest discomfort. Coronary calcium score was 0.95. I increased losartan from 25mg to 50mg p.o. daily, continue to check BPs and will re-evaluate readings when I see him in the office on 05/23/22. Signatures Electronically signed by : Glenn Norris APRN-CHRISTIANO DNP; May 12 2022 9:47AM EST (Author) Normal [facility] Echocardiogramon 05-09-2022 Echocardiography [facility] [place] [address] [phone], TRANSTHORACIC ECHOCARDIOGRAM REPORT Patient Name: SAE KAPADIA Reading Physician: [id number] Pravin Parker MD Study Date: 05/09/2022 Referring Physician: GLENN NORRIS CNP MRN/PID: [id number] PCP: Accession/Order#: [id number] Department Location: [facility] Echo Lab Date of : 1960 Fellow: Gender: M Nurse: Admit Date: Healthcare Customer Service: Tonya Godoy RVT, [facility] Admission Status: Outpatient Additional Staff: Height: 187.96 cm CC Report to: Weight: 90.72 kg Study Type: Echocardiogram BSA: 2.17 m2 Blood Pressure: 144 /88 mmHg Diagnosis/ICD: I71.21-Aneurysm of the ascending aorta, without rupture Indication: AAA Procedure/CPT: Echo Complete w Full Doppler-[id number] Patient History: Pertinent History: No previous echo. Study Detail: The following Echo studies were performed: 2D, M-Mode, Doppler and color flow. Definity used as a contrast agent for endocardial border definition and agitated saline used as a contrast agent for intraseptal flow evaluation. Total contrast used for this procedure was 1 mL via IV push. The patient was awake. PHYSICIAN INTERPRETATION: Left Ventricle: Left ventricular systolic function is normal, with an estimated ejection fraction of 55-60%. There are no regional wall motion abnormalities. The left ventricular cavity size is normal. There is mild asymmetric left ventricular hypertrophy involving the septal wall and basal wall. Spectral Doppler shows an impaired relaxation pattern of left ventricular diastolic filling. Left Atrium: The left atrium is normal in size. A bubble study using agitated saline was performed. Bubble study is negative. Right Ventricle: The right ventricle is normal in size. There is normal right ventricular global systolic function. Right Atrium: The right atrium is normal in size. Aortic Valve: The aortic valve was not well visualized. There is no evidence of aortic valve regurgitation. The peak instantaneous gradient of the aortic valve is 6.7 mmHg. The mean gradient of the aortic valve is 4.0 mmHg. Mitral Valve: The mitral valve is normal in structure. There is mild mitral valve regurgitation. Tricuspid Valve: The tricuspid valve is structurally normal. No evidence of tricuspid regurgitation. Pulmonic Valve: The pulmonic valve is not well visualized. There is no indication of pulmonic valve regurgitation. Pericardium: There is no pericardial effusion noted. Aorta: The aortic root is normal. Systemic Veins: The inferior vena cava appears to be of normal size. There is IVC inspiratory collapse greater than 50%. CONCLUSIONS: 1. Left ventricular systolic function is normal with a 55-60% estimated ejection fraction. 2. Spectral Doppler shows an impaired relaxation pattern of left ventricular diastolic filling. 3. There is mild asymmetric left ventricular hypertrophy. QUANTITATIVE DATA SUMMARY: 2D MEASUREMENTS: Normal Ranges: Ao Root d: 3.20 cm (2.0-3.7cm) LAs: 3.50 cm (2.7-4.0cm) IVSd: 1.66 cm (0.6-1.1cm) LVPWd: 1.22 cm (0.6-1.1cm) LVIDd: 4.82 cm (3.9-5.9cm) LVIDs: 3.30 cm LV Mass Index: 132.2 g/m2 LV % FS 31.5 % LA VOLUME: Normal Ranges: LA Vol A4C: 39.8 ml (22+/-6mL/m2) LA Vol A2C: 50.9 ml LA Vol BP: 45.2 ml LA Vol Index A4C: 18.3ml/m2 LA Vol Index A2C: 23.4 ml/m2 LA Vol Index BP: 20.8 ml/m2 LA Area A4C: 14.9 cm2 LA Area A2C: 16.9 cm2 LA [place] A4C: 4.7 cm LA [place] A2C: 4.8 cm LA Volume Index: 21.9 ml/m2 LA Vol A4C: 39.2 ml LA Vol A2C: 47.6 ml M-MODE MEASUREMENTS: Normal Ranges: AoV Exc: 2.20 cm (1.5-2.5cm) AORTA MEASUREMENTS: Normal Ranges: AoV Exc: 2.20 cm (1.5-2.5cm) LV SYSTOLIC FUNCTION BY 2D PLANIMETRY (MOD): Normal Ranges: EF-A4C View: 58.6 % (>=55%) EF-A2C View: 49.1 % EF-Biplane: 55.9 % LV DIASTOLIC FUNCTION: Normal Ranges: MV Peak E: 0.63 m/s (0.7-1.2 m/s) MV Peak A: 0.93 m/s (0.42-0.7 m/s) E/A Ratio: 0.68 (1.0-2.2) MV e' 0.06 m/s (>8.0) MV lateral e' 0.09 m/s MV medial e' 0.07 m/s E/e' Ratio: 10.52 (<8.0) MITRAL VALVE: Normal Ranges: MV DT: 289 msec (150-240msec) MITRAL INSUFFICIENCY: Normal Ranges: MR Vmax: 565.00 cm/s AORTIC VALVE: Normal Ranges: AoV Vmax: 1.29 m/s (<=1.7m/s) AoV Peak P.7 mmHg (<20mmHg) AoV Mean P.0 mmHg (1.7-11.5mmHg) LVOT Max Gen: 0.86 m/s (<=1.1m/s) AoV VTI: 29.00 cm (18-25cm) LVOT VTI: 17.30 cm LVOT Diameter: 2.20 cm (1.8-2.4cm) AoV Area, VTI: 2.27 cm2 (2.5-5.5cm2) AoV Area,Vmax: 2.53 cm2 (2.5-4.5cm2) AoV Dimensionless Index: 0.60 RIGHT VENTRICLE: RV 1 3.06 cm RV 2 2.46 cm RV 3 7.11 cm TAPSE: 18.9 mm TRICUSPID VALVE/RVSP: Normal Ranges: Peak TR Velocity: 2.88 m/s RV Syst Pressure: 36.2 mmHg (< 30mmHg) PULMONIC VALVE: Normal Ranges: PV Accel Time: 92 msec (>120ms) PV Max Gen: 1.2 m/s (0.6-0.9m/s) PV Max P.6 mmHg PIEDV: 0.65 m/s PADP: 4.7 mmHg [id number] Pravin Parker MD Electronically (more content not included)... Normal [facility] Narrative Note - Outpatient- CPS for bubble study and definiton 05-09-2022 Narrative Note - Outpatient-CPS for bubble study and definit Narrative Note: Discipline/ClinicCPS for bubble study and definity Description Called to CPS to administer bubbles and to give definity. Started a 22g IV in the LFA. IV flushed easily. Administered bubble test times 2 and then gave 1ml of definity as organic preparation technician instructed. Once test completed IV flushed with NS then dc'ed with angiocath intact and dressing to site. Patient tolerated without complaint. Electronic Signatures: Mandy Mathew (RN) (Signed 09-May-2022 11:40) Authored: Narrative Note - OP Last Updated: 09-May-2022 11:40 by Mandy Mathew (RN) Normal [facility] Chart Updateon 05-02-2022 Chart Update Diagnoses/Problems Ascending aortic aneurysm (441.2) (I71.21) Orders Ascending aortic aneurysm Echocardiogram; Status:Hold For - Scheduling; Requested for:[id number]; Perform:[facility] ([facility]); Due:[id number];Ordered; For:Ascending aortic aneurysm; Ordered By:Glenn Norris; Chart Update Incidental finding on patient's coronary calcium score of an ascending aortic aneurysm measuring 3.6cm and trace pericardial effusion. Message left for patient to inform him I will be ordering an echocardiogram to rule out bicuspid aortic valve. Signatures Electronically signed by : Glenn Norris APRN-SOIL CONSERVATIONIST DNP; May 02 2022 9:16AM EST (Author) Normal [facility] CT CARDIAC SCORINGon 023 CT CARDIAC SCORING Patient Name: SAE KAPADIA STUDY: CT CARDIAC SCORING; 04/28/2022 3:15 pm INDICATION: screening R07.9: Intermittent chest pain I10: Hypertension. COMPARISON: None. ACCESSION NUMBER(S): [id number] ORDERING CLINICIAN: GLENN NORRIS TECHNIQUE: Using prospective ECG gating, limited CT scan of the coronary arteries was performed without intravenous contrast. Coronary calcium scoring was performed according to the method of Agatston. FINDINGS: The score and distribution of calcium in the coronary arteries is as follows: LM: 0. LAD: 0.24. LCx: 0. RCA: 0.71. Total: 0.95. The visualized segments of the lungs are normally expanded. The visualized mid/lower ascending thoracic aorta measures 3.6 cm in diameter. The heart is borderline enlarged. Trace pericardial effusion. No gross evidence of mediastinal or hilar lymphadenopathy is identified. 5 mm low-density left hepatic lobe lesion too small to characterize but probably of benign etiology. IMPRESSION: 1. Coronary artery calcium score of 0.95 *. 2. Additional findings as above. *Coronary artery calcium scoring may be helpful in predicting the risk for future coronary heart disease events. According to the [employer] Clinical Expert Consensus Task Force, such testing provides important prognostic information in patients with more than one coronary heart disease risk factor. The coronary artery calcium score correlates with the annual risk of a non-fatal myocardial infarction or coronary heart disease . Coronary artery score Annual Risk 0-99 0.4% 100-399 1.3% >400 2.4% These three breakpoints correspond to lower, intermediate and high risk states for future coronary events. Such information should be used, along with appropriate clinical judgment, to make decisions regarding the intensity of risk factor management strategies to treat blood lipids and to modify other non-lipid coronary risk factors. Reference: Nu P et al. Circulation. 2007; 115:402-426 Electronically signed by: MERRICK BANKS DO Normal [facility] CT Cardiac Scoringon 023 CT Cardiac Scoring Normal [address] Work Phone: Office Visit (Cardiology)on 04-26-2022 Follow-up visit Diagnoses/Problems Assessed Hypertension (401.9) (I10) Intermittent chest pain (786.50) (R07.9) Dyslipidemia (272.4) (E78.5) Orders Hypertension Start: Losartan Potassium 25 MG Oral Tablet; TAKE 1 TABLET Daily Hypertension, Intermittent chest pain CT Cardiac Scoring; Status:Hold For - Scheduling; Requested for:[id number]; Patient taking Metformin or Derivatives? : No Radiologist to Determine Optimal Study : Y What are the patient's signs and symptoms? : screening History of Present Illness Sae Kapadia is a 61-year-old male with a h/o dyslipidemia, intermittent chest pain, prostate cancer, restless legs, establishing Cardiology care for results of his recent holter monitor. Per patient's chart, he presented to his PCP in February and was last seen by a PCP 5-6 years ago. On the initial visit, Sae complained of elevated blood pressure readings and intermittent left-sided chest pain. Labs were ordered and a holter monitor was placed. Abnormal labs: Cholesterol 280mg/dL; LDL 175mg/dL; patient prescribed rosuvastatin 10mg daily Holter monitor: revealed a predominant rhythm of normal sinus rhythm with an average heart rate of 75 bpm; PVC burden less than 0.1%; PAC burden less than 0.1%. The monitor did reveal two occurrences of SVT with the HR reaching 211 bpm for three beats. No symptoms reported on the monitor. Today, Sae reports his intermittent chest pain has remained the same as it did in February. The pain only occurs when he is lying down and remains localized to the left-side of his chest. Alleviating factor is position. There are no aggravating factors and the pain does not radiate. Per the patient's she did start to check his BP in early March with systolic readings averaging 130-180. She has not checked his BP in a few weeks. Sae's also reports the patient snores at night. Sae denies any palpitations, SOB, dizziness, syncope, lower leg edema, or claudication. Contributory family hx: Mom-none Father-none Siblings-none Social hx: Employed as a [employer] Non-smoker Occasional alcohol use No illicit drug use Active Problems Problems Dyslipidemia (272.4) (E78.5) Elevated blood pressure reading (796.2) (R03.0) Encounter for immunization (V03.89) (Z23) Hot flashes (782.62) (R23.2) Intermittent chest pain (786.50) (R07.9) Paroxysmal supraventricular tachycardia seen on cardiac cath lab radiology technologist (427.0) (I47.1) Prostate cancer (185) (C61) RLS (restless legs syndrome) (333.94) (G25.81) Surgical History Problems No history of surgery Current Meds Medication NameInstruction Calcium 600 + D 600-5 MG-MCG Oral TabletTAKE 1 TABLET DAILY. Lupron Depot (3-Month) 11.25 MG Intramuscular Kitinjection done every 3 months for prostate cancer predniSONE 10 MG Oral TabletTake 1 tablet daily rOPINIRole HCl - 0.25 MG Oral TabletTAKE 1 TABLET Bedtime Rosuvastatin Calcium 10 MG Oral TabletTAKE 1 TABLET AT BEDTIME. Venlafaxine HCl - 37.5 MG Oral TabletTake 1 tablet daily Xgeva 120 MG/1.7ML Subcutaneous SolutionINFUSION DONE EVERY 3 MONTHS Zytiga 500 MG Oral Tablettakes 1 tablet daily Allergies NoKnown No Known Allergies Recorded By: Diana Walker; 10/17/2017 4:24:20 PM Family History Mother Family history of hypertension (V17.49) (Z82.49) Father Family history of cerebrovascular accident (CVA) (V17.1) (Z82.3) Family history of hypertension (V17.49) (Z82.49) Family history of malignant neoplasm of prostate (V16.42) (Z80.42) Sister Family history of hypertension (V17.49) (Z82.49) Family history of malignant neoplasm of breast (V16.3) (Z80.3) Brother Family history of hypertension (V17.49) (Z82.49) Family history of malignant neoplasm of prostate (V16.42) (Z80.42) Paternal Grandmother Family history of malignant neoplasm of breast (V16.3) (Z80.3) Paternal Grandfather Family history of malignant neoplasm of colon (V16.0) (Z80.0) Social History Problems Never used tobacco (V49.89) (Z78.9) No caffeine use No illicit drug use Very rarely consumes alcohol (V49.89) (Z78.9) Review of Systems A 10-point system review was completed and was negative except as noted in the HPI. Vitals Vital Signs Recorded: [id number] 03:23PM Heart Rate76 Pzppxnnn155 Rkzivktkp71 Height6 ft 2 in Nnjdyq388 lb BMI Jtqxkjrufw12.19 kg/m2 BSA Calculated2.19 Tobacco Useb) No Falls Screening (Age 18+)a) No falls within the last year O2 Knxgbniyxg57 Physical Exam General: awake, alert and oriented. No acute distress. Well developed, hydrated and nourished. Appears stated age. Skin: Skin is warm, dry and intact without rashes or lesions. Appropriate color for ethnicity. Nail beds pink with no cyanosis or clubbing HEENT: normocephalic, atraumatic; conjunctivae are clear without exudates or hemorrhage. Sclera is non-icteric. Eyelids are normal in appearance without swelling or lesions. Hearing intact. Nares are patent bilaterally. Moist mucous membranes. Cardiovascular: h (more content not included)... Normal [facility] Tobacco Screening.on 023 Fall risk assessment a) No falls within the last year [facility] [email or web address] Phone: Tobacco use status [facility] b) No [facility] [address] [facility] Work Phone: Chart Updateon 04-12-2022 Chart Update Diagnoses/Problems Paroxysmal supraventricular tachycardia seen on cardiac cath lab radiology technologist (427.0) (I47.1) Intermittent chest pain (786.50) (R07.9) Elevated blood pressure reading (796.2) (R03.0) Chart Update Holter monitor showed 2 short runs of SVT with max heart rate of 211. Some mild PVC burden. Patient took logs of blood pressure and averages 143/83. Cardiology referral was arranged with regard to the SVTs and chest pressure. Patient was notified of plan. Signatures Electronically signed by : Isiah Harding PA-C; Apr 12 2022 9:28AM EST (Author) Normal [facility] CBCon 03-18-2022 Erythrocyte distribution width (RBC) [Ratio] 12.1 % Normal 11.5 - 14.5 [facility] Comment on above: Performed By: #### C BC #### [address] [address] Hematocrit (Bld) [Volume fraction] 44.6 % Normal 41.0 - 52.0 [facility] Comment on above: Performed By: #### C BC #### [address] [address] Hemoglobin (Bld) [Mass/Vol] 14.5 g/dL Normal 13.5 - 17.5 [facility] Comment on above: Performed By: #### C BC #### [address] [address] MCHC (RBC) [Mass/Vol] 32.5 g/dL Normal 32.0 - 36.0 [facility] Comment on above: Performed By: #### C BC #### [address] [address] MCV (RBC) [Entitic vol] 92 fL Normal 80 - 100 [facility] Comment on above: Performed By: #### C BC #### [address] [address] Platelets (Bld) [#/Vol] 271 10*3/uL Normal 150 - 450 [facility] Comment on above: Performed By: #### C BC #### [address] [address] RBC 4.86 x10E12/L Normal 4.50 - 5.90 [facility] Comment on above: Performed By: #### C BC #### [address] [address] WBC (Bld) [#/Vol] 6.7 10*3/uL Normal 4.4 - 11.3 [facility] Comment on above: Performed By: #### C BC #### [place] [id number] CHEST 2 VIEW PA AND LATon CHEST 2 VIEW PA AND LAT Patient Name: SAE KAPADIA STUDY: TH CHEST 2 VIEW PA AND LAT; 03/18/2022 6:28 am INDICATION: intermittent (L) chest pain R03.0: Elevated blood pressure reading R07.9: Intermittent chest pain. COMPARISON: 12/19/2011 ACCESSION NUMBER(S): [id number] ORDERING CLINICIAN: ISIAH HARDING FINDINGS: There is no focal lung consolidation or effusion. There is no edema. The cardiac silhouette is within normal limits for size. IMPRESSION: No acute cardiopulmonary process. Electronically signed by: TOMÁS RIVERO MD Normal [facility] PANELon 2021 ALP [Catalytic activity/Vol] 45 U/L Normal 33 - 136 [facility] Comment on above: Performed By: #### C MP #### [address] [address] Albumin [Mass/Vol] 4.1 g/dL Normal 3.4 - 5.0 [facility] Comment on above: Performed By: #### C MP #### [address] [address] ALT [Catalytic activity/Vol] 22 U/L Normal 10 - 52 [facility] Comment on above: Result Comment: Flory ents treated with Sulfasalazine may generate falsely decreased results for ALT. Performed By: #### C MP #### [address] [address] Anion gap [Moles/Vol] 12 mmol/L Normal 10 - 20 [facility] Comment on above: Performed By: #### C MP #### [address] [address] AST [Catalytic activity/Vol] 22 U/L Normal 9 - 39 [facility] Comment on above: Performed By: #### C MP #### [address] [address] Bilirubin [Mass/Vol] 0.6 mg/dL Normal 0.0 - 1.2 [facility] Comment on above: Performed By: #### C MP #### [address] [address] Calcium [Mass/Vol] 9.5 mg/dL Normal 8.6 - 10.3 [facility] Comment on above: Performed By: #### C MP #### [address] [address] Chloride [Moles/Vol] 101 mmol/L Normal 98 - 107 [facility] Comment on above: Performed By: #### C MP #### [address] [address] Creatinine [Mass/Vol] 0.86 mg/dL Normal 0.50 - 1.30 [facility] Comment on above: Performed By: #### C MP #### [address] [address] eGFR MALE >90 Normal >90 [facility] Comment on above: Result Comment: CALC ULATIONS OF ESTIMATED GFR ARE PERFORMED USING THE 2020 CKD-EPI STUDY REFIT EQUATION WITHOUT THE RACE VARIABLE FOR THE IDMS-TRACEABLE CREATININE METHODS. https://jasn.asnjournals.org/content/early//ASN.41162 86316 Performed By: #### C MP #### [address] [address] Glucose [Mass/Vol] 92 mg/dL Normal 74 - 99 [facility] Comment on above: Performed By: #### C MP #### [address] [address] HCO3 (Bld) [Moles/Vol] 30 mmol/L Normal 21 - 32 [facility] Comment on above: Performed By: #### C MP #### [address] [address] Potassium [Moles/Vol] 4.2 mmol/L Normal 3.5 - 5.3 [facility] Comment on above: Performed By: #### C MP #### [address] [address] Protein [Mass/Vol] 6.3 g/dL Low 6.4 - 8.2 [facility] Comment on above: Performed By: #### C MP #### [address] [address] Sodium [Moles/Vol] 139 mmol/L Normal 136 - 145 [facility] Comment on above: Performed By: #### C MP #### [address] [address] Urea nitrogen [Mass/Vol] 21 mg/dL Normal 6 - 23 [facility] Comment on above: Performed By: #### C MP #### [address] [address] Electrocardiogram 12 Leadon 03-18-2022 Electrocardiogram 12 Lead Ventricular Rate 62 Atrial Rate 62 P-R Interval 162 QRS Duration 90 Q-T Interval 414 QTC Calculation(Bazett) 420 P [place] 61 R [place] 53 T [place] 60 QRS Count 10 Q Onset 224 P Onset 143 P Offset 198 T Offset 431 QTC Fredericia 418 Diagnosis Class Normal Diagnosis Normal sinus rhythm Normal ECG When compared with ECG of 18-MAR-2022 06:41, No significant change was found Confirmed by Javon Reis ([id number]) on 03/24/2022 1:26:23 PM Normal [facility] HEMOGLOBIN A1Con 03-18-2022 Glucose [Mass/Vol] 123 mg/dL Normal [facility] Comment on above: Performed By: #### H BA1E #### [address] [address] HbA1c (Bld) [Mass fraction] 5.9 % Abnormal [facility] Comment on above: Result Comment: Diag nosis of Diabetes-Adults Non-Diabetic: < or = 5.6% Increased risk for developing diabetes: 5.7-6.4% Diagnostic of diabetes: > or = 6.5% . Monitoring of Diabetes Age (y) Therapeutic Goal (%) Adults: >18 <7.0 Pediatrics: 13-18 <7.5 7-12 <8.0 0- 6 7.5-8.5 [employer]. Diabetes Care 33(S1), Mar 2009. Performed By: #### H BA1E #### [address] [address] Hemoglobin A1Con 03-18-2022 Glucose [Mass/Vol] 123 mg/dL [facility] Work Phone: HbA1c (Bld) [Mass fraction] 5.9 % Abnormal [facility] Work Phone: Comment on above: Diagnosis of Diabete s-Adults Non-Diabetic: < or = 5.6% Increased risk for developing diabetes: 5.7-6.4% Diagnostic of diabetes: > or = 6.5%. Monitoring of Diabetes Age (y) Therapeutic Goal (%) Adults: >18 <7.0 Pediatrics: 13-18 <7.5 7-12 <8.0 0- 6 7.5-8.5 [employer]. Diabetes Care 33(S1), Mar 2009. LIPID PANEL (CORONARY RISK 2 )on 03-18-2022 Cholesterol [Mass/Vol] 280 mg/dL High 0 - 199 [facility] Comment on above: Result Comment: . AGE DESIRABLE BORDERLINE HIGH HIGH 0-19 Y 0 - 169 170 - 199 >/= 200 20-24 Y 0 - 189 190 - 224 >/= 225 >24 Y 0 - 199 200 - 239 >/= 240 All ranges are based on fasting samples. Specific therapeutic targets will vary based on patient-specific cardiac risk. . Pediatric guidelines reference:Pediatrics 2011, 128(S5). Adult guidelines reference: NCEP ATPIII Guidelines, ROGELIO 2001, 258:2486-97 . Venipuncture immediately after or during the administration of Metamizole may lead to falsely low results. Testing should be performed immediately prior to Metamizole dosing. Performed By: #### L IPID #### [address] [address] Cholesterol in HDL [Mass/Vol] 87.0 mg/dL Normal [facility] Comment on above: Result Comment: . AGE VERY LOW LOW NORMAL HIGH 0-19 Y < 35 < 40 40-45 ---- 20-24 Y ---- < 40 >45 ---- >24 Y ---- < 40 40-60 >60 . Performed By: #### L IPID #### [address] [address] Cholesterol in LDL [Mass/Vol] 175 mg/dL High 0 - 99 [facility] Comment on above: Result Comment: . NEAR BORD AGE DESIRABLE OPTIMAL HIGH HIGH VERY HIGH 0-19 Y 0 - 109 --- 110-129 >/= 130 ---- 20-24 Y 0 - 119 --- 120-159 >/= 160 ---- >24 Y 0 - 99 100-129 130-159 160-189 >/=190 . Performed By: #### L IPID #### [address] [address] Cholesterol in VLDL [Mass/Vol] 18 mg/dL Normal 0 - 40 [facility] Comment on above: Performed By: #### L IPID #### [address] [address] Cholesterol.total/Chol esterol in HDL [Mass ratio] 3.2 {ratio} Normal [facility] Comment on above: Result Comment: REF VALUES DESIRABLE < 3.4 HIGH RISK > 5.0 Performed By: #### L IPID #### [address] [address] Triglyceride [Mass/Vol] 90 mg/dL Normal 0 - 149 [facility] Comment on above: Result Comment: . AGE DESIRABLE BORDERLINE HIGH HIGH VERY HIGH 0 D-90 D 19 - 174 ---- ---- ---- 91 D- 9 Y 0 - 74 75 - 99 >/= 100 ---- 10-19 Y 0 - 89 90 - 129 >/= 130 ---- 20-24 Y 0 - 114 115 - 149 >/= 150 ---- >24 Y 0 - 149 150 - 199 200- 499 >/= 500 . Venipuncture immediately after or during the administration of Metamizole may lead to falsely low results. Testing should be performed immediately prior to Metamizole dosing. Performed By: #### L IPID #### [facility] [address] [place] [address] Laboratory - Chemistry and C hemistry - challengeon 03-18-2022 Albumin BCP dye [Mass/Vol] 4.1 g/dL 3.4 - 5.0 [facility] Work Phone: [phone] ALP [Catalytic activity/Vol] 45 U/L 33 - 136 [facility] Work Phone: [phone] ALT With P-5'-P [Catalytic activity/Vol] 22 U/L 10 - 52 [facility] Work Phone: [phone] Comment on above: Patients treated wit h Sulfasalazine may generate falsely decreased results for ALT. Anion gap [Moles/Vol] 12 mmol/L 10 - 20 [facility] Work Phone: [phone] AST With P-5'-P [Catalytic activity/Vol] 22 U/L 9 - 39 [facility] Work Phone: [phone] Bilirubin [Mass/Vol] 0.6 mg/dL 0.0 - 1.2 [facility] Work Phone: [phone] Calcium [Mass/Vol] 9.5 mg/dL 8.6 - 10.3 [facility] Work Phone: [phone] Chloride [Moles/Vol] 101 mmol/L 98 - 107 [facility] Work Phone: [phone] CO2 [Moles/Vol] 30 mmol/L 21 - 32 [facility] Work Phone: [phone] Creatinine [Mass/Vol] 0.86 mg/dL See Below [facility] Work Phone: [phone] Comment on above: Reference Range: 0.5 0 - 1.30 Glucose [Mass/Vol] 92 mg/dL 74 - 99 [facility] Work Phone: [phone] Potassium [Moles/Vol] 4.2 mmol/L 3.5 - 5.3 [facility] Work Phone: [phone] Protein [Mass/Vol] 6.3 g/dL below low threshold 6.4 - 8.2 [facility] Work Phone: [phone] Sodium [Moles/Vol] 139 mmol/L 136 - 145 [facility] Work Phone: [phone] TSH Qn 3.24 m[IU]/L See Below [facility] Work Phone: [phone] Comment on above: Reference Range: 0.4 4 - 3.98 TSH testing is performed using different testing methodology at [facility] than at [facility]. Direct result comparisons should only be made within the same method. Urea nitrogen [Mass/Vol] 21 mg/dL 6 - 23 [facility] Work Phone: [phone] Laboratory - Hematology and Cell countson 03-18-2022 Erythrocyte distribution width (RBC) [Ratio] 12.1 % See Below [facility] Work Phone: [phone] Comment on above: Reference Range: 11. 5 - 14.5 Hematocrit (Bld) [Volume fraction] 44.6 % See Below [facility] Work Phone: [phone] Comment on above: Reference Range: 41. 0 - 52.0 Hemoglobin (Bld) [Mass/Vol] 14.5 g/dL See Below [facility] Work Phone: [phone] Comment on above: Reference Range: 13. 5 - 17.5 MCHC (RBC) [Mass/Vol] 32.5 g/dL See Below [facility] Work Phone: [phone] Comment on above: Reference Range: 32. 0 - 36.0 MCV (RBC) [Entitic vol] 92 fL 80 - 100 [facility] Work Phone: [phone] Platelets (Bld) [#/Vol] 271 10*3/uL 150 - 450 [facility] Work Phone: [phone] RBC (Bld) [#/Vol] 4.86 {x10E12/L} See Below [facility] Work Phone: [phone] Comment on above: Reference Range: 4.5 0 - 5.90 WBC (Bld) [#/Vol] 6.7 10*3/uL 4.4 - 11.3 [facility] Work Phone: [phone] Lipid Panelon 03-18-2022 Cholesterol [Mass/Vol] 280 mg/dL above hig h threshold 0 - 199 [facility] Work Phone: [phone] Comment on above: . AGE DESIRABLE BORD TUAN HIGH HIGH 0-19 Y 0 - 169 170 - 199 >/= 200 20-24 Y 0 - 189 190 - 224 >/= 225 >24 Y 0 - 199 200 - 239 >/= 240 All ranges are based on fasting samples. Specific therapeutic targets will vary based on patient-specific cardiac risk.. Pediatric guidelines reference:Pediatrics 2011, 128(S5). Adult guidelines reference: NCEP ATPIII Guidelines, ROGELIO 2001, 258:2486-97. Venipuncture immediately after or during the administration of Metamizole may lead to falsely low results. Testing should be performed immediately prior to Metamizole dosing. Cholesterol in HDL [Mass/Vol] 87.0 mg/dL [facility] Work Phone: [phone] Comment on above: . AGE VERY LOW LOW N ORMAL HIGH 0-19 Y < 35 < 40 40-45 ---- 20-24 Y ---- < 40 >45 ---- >24 Y ---- < 40 40-60 >60. Cholesterol in LDL [Mass/Vol] 175 mg/dL above high threshold 0 - 99 [facility] Work Phone: [phone] Comment on above: . NEAR BORD AGE HEIDI RABLE OPTIMAL HIGH HIGH VERY HIGH 0-19 Y 0 - 109 --- 110-129 >/= 130 ---- 20-24 Y 0 - 119 --- 120-159 >/= 160 ---- >24 Y 0 - 99 100-129 130-159 160-189 >/=190. Cholesterol.total/Chol esterol in HDL [Mass ratio] 3.2 {ratio} [facility] Work Phone: [phone] Comment on above: REF VALUESDESIRABLE < 3.4HIGH RISK > 5.0 Triglyceride [Mass/Vol] 90 mg/dL 0 - 149 [facility] Work Phone: Comment on above: . AGE DESIRABLE BORD TUAN HIGH HIGH VERY HIGH 0 D-90 D 19 - 174 ---- ---- ----91 D- 9 Y 0 - 74 75 - 99 >/= 100 ---- 10-19 Y 0 - 89 90 - 129 >/= 130 ---- 20-24 Y 0 - 114 115 - 149 >/= 150 ---- >24 Y 0 - 149 150 - 199 200- 499 >/= 500. Venipuncture immediately after or during the administration of Metamizole may lead to falsely low results. Testing should be performed immediately prior to Metamizole dosing. Lipid Panel 18 mg/dL 0 - 40 [facility] Work Phone: [phone] No Panel Informationon 03-18 [email or web address] ?[email or web address]=[id number]&Date =18-03-2022&Time=06%3a41% 3a23%3a00&TestType=ECG&Si te=14&OutputType=PDF&Ext= PDF [facility] Work Phone: [phone] Normal sinus rhythm [facility] Work Phone: [phone] Normal [facility] Work Phone: [phone] 1 [facility] Work Phone: [phone] [facility] Work Phone: [phone] 1 [facility] Work Phone: [phone] 1 [facility] Work Phone: [phone] 1 [facility] Work Phone: [phone] 1 [facility] Work Phone: [phone] 1 [facility] Work Phone: [phone] 1 [facility] Work Phone: [phone] 1 [facility] Work Phone: [phone] 1 [facility] Work Phone: [phone] 1 [facility] Work Phone: [phone] 1 [facility] Work Phone: [phone] 1 [facility] Work Phone: [phone] [facility] Work Phone: [phone] >90 >90 [facility] Work Phone: Comment on above: CALCULATIONS OF LISSETTE MATED GFR ARE PERFORMED USING THE 2020 CKD-EPI STUDY REFIT EQUATION WITHOUT THE RACE VARIABLE FOR THE IDMS-TRACEABLE CREATININE METHODS.https://jasn.asnjournals.org/content/early/A SN.3626821441 Radiologyon 03-18-2022 XR Chest [address] [facility] Work Phone: TSH WITH REFLEX TO FREE T4 I F ABNORMALon 03-18-2022 TSH Qn 3.24 m[IU]/L Normal 0.44 - 3.98 [facility] Comment on above: Result Comment: TSH testing is performed using different testing methodology at [facility] than at other [facility]. Direct result comparisons should only be made within the same method. Performed By: #### [facility] #### [place] [address] Office Visit (Internal Medic ine)on 03-17-2022 Follow-up visit Diagnoses/Problems Assessed RLS (restless legs syndrome) (333.94) (G25.81) Elevated blood pressure reading (796.2) (R03.0) Intermittent chest pain (786.50) (R07.9) Orders Elevated blood pressure reading, Intermittent chest pain Complete Blood Count; Status:Active; Requested for:17Mar2022; Perform:Lab Services - Lab To Draw (Blood Test); Due:15Jun2022;Ordered; For:Elevated blood pressure reading, Intermittent chest pain; Ordered By:Isiah Harding; Comprehensive Metabolic Panel; Status:Active; Requested for:17Mar2022; Perform:Lab Services - Lab To Draw (Blood Test); Due:15Jun2022;Ordered; For:Elevated blood pressure reading, Intermittent chest pain; Ordered By:Isiah Harding; Electrocardiogram 12 Lead; Status:Active; Requested for:17Mar2022; Perform:[facility]; Due:15Jun2022;Ordered; For:Elevated blood pressure reading, Intermittent chest pain; Ordered By:Isiah Harding; Hemoglobin A1C; Status:Active; Requested for:17Mar2022; Perform:Lab Services - Lab To Draw (Blood Test); Due:15Jun2022;Ordered; For:Elevated blood pressure reading, Intermittent chest pain; Ordered By:Isiah Harding; Holter Monitor 3-14 Days; Status:Hold For - Scheduling; Requested for:17Mar2022; Perform:[facility]; Due:15Jun2022;Ordered; For:Elevated blood pressure reading, Intermittent chest pain; Ordered By:Isiah Harding; Lipid Panel; Status:Active; Requested for:17Mar2022; Perform:Lab Services - Lab To Draw (Blood Test); Due:15Jun2022;Ordered; For:Elevated blood pressure reading, Intermittent chest pain; Ordered By:Isiah Harding; TSH WITH REFLEX TO FREE T4 IF ABNORMAL; Status:Active; Requested for:17Mar2022; Perform:Lab Services - Lab To Draw (Blood Test); Due:15Jun2022;Ordered; For:Elevated blood pressure reading, Intermittent chest pain; Ordered By:Isiah Harding; Xray Chest 2 View PA + Lateral; Status:Hold For - Scheduling; Requested for:17Mar2022; Perform: Radiology Services Imaging; Due:15Jun2022;Ordered; For:Elevated blood pressure reading, Intermittent chest pain; Ordered By:Isiah Harding; Radiologist to Determine Optimal Study : Y What are the patient's signs and symptoms? : intermittent (L) chest pain Encounter for immunization Administered: Flulaval Quadrivalent 0.5 ML Intramuscular Suspension Prefilled Syringe For: Encounter for immunization; Ordered By:Isiah Harding; Effective Date:17Mar2022; Administered by: Kelsey Murguia MA: 03/17/2022 4:15:00 PM; Last Updated By: Kelsey Murguia; 03/17/2022 4:15:15 PM RLS (restless legs syndrome) Start: rOPINIRole HCl - 0.25 MG Oral Tablet; TAKE 1 TABLET Bedtime Rx By: Isiah Harding; Dispense: 30 Days ; #:30 Tablet; Refill: 3;For: RLS (restless legs syndrome); NEGRITO = N; Verified Transmission to [facility]; Last Updated By: Madelin Lockwood; 03/17/2022 3:57:22 PM Patient Discussion/Summary Prostate cancer: Continue with oncology Elevated blood pressure readings and chest pain: Patient has blood pressure cuff at home and will keep track for 1 week. CBC, CMP, A1c, TSH, lipids, EKG, and Holter monitor ordered. Further recommendations pending results. RLS: Start Requip 0.25 mg nightly. May increase after 2 days if needed. Follow-up to be determined by results Flu vaccine administered. Patient is current with colonoscopy Chief Complaint Patient here today to get established as a new patient, last seen by PCP 5-6 years ago. Patient has been noticing borderline blood pressures x 3-4 months and states past 1-2 weeks having chest pressure when sleeping, intermittently. Patient also mentions having restless legs x 4 years that has been worsening and keeping him up at night. Colonoscopy done 4 years ago, prostate and PSA followed by Dr. Jimenez. Flulaval vaccine 0.5 cc given left IM deltoid without incident, patient tolerated well without complaints. LOT [id number] EXP 09/16/2022 [facility] [id number] History of Present IllnessPatient presents to establish care. Patient's only current chronic illnesses history of prostate cancer. Approximately 4 years ago patient was been diagnosed with prostate cancer. Patient underwent chemo only as it had metastasized to the regional lymph nodes and bone. Patient had good success with chemotherapy and remains on maintenance chemo through [facility]. Patient complains of symptoms consistent with restless leg syndrome. Patient reports involuntary jerking movements of the bilateral lower extremities that started after starting chemotherapy. Patient states symptoms have worsened and have recently become so bad it is causing insomnia. Patient had discussed this with oncology who suspected dehydration or electrolyte imbalance some these were both ruled out. Patient also reports intermittent chest pain and elevated blood pressure readings at home. Patient has had intermittent left-sided chest pain not associated with activity over the past several months. No shortness of breath. Patient is in good physical condition (more content not included)... Normal [employer] Tobacco Screening.on 022 Adult depression screening assessment No [facility] Work Phone: Fall risk assessment a) No falls within the last year [facility] Work Phone: Tobacco use status [facility] b) No [facility] Work Phone: TOBACCO SCREEN MEDICAL PL AN ONLYon 11-16-2021 TOBACCO SCREEN, URINE Negative Normal [facility] Comment on above: Result Comment: Coti nine, a metabolite of nicotine, is measured to screen for nicotine exposure. The cut-off is set at 300ng/mL to detect active exposure (smoking). This test was developed and its performance characteristics were determined by the [facility]. Performed By: #### T OBSC #### [facility] [address] [place] [address] XR Ribs - left Views and Sandy st PAon 05-11-2021 IMPRESSION: No acute radiographic abnormality. 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: [employer] Transcribe Date/Time: May 11 2021 6:20P Dictated by : LUIZA CRAFT MD This examination was interpreted and the report reviewed and electronically signed by: LUIZA CRAFT MD on May 11 2021 6:22PM [facility] DIVISION OF RADIOLOGY * * *Final Report* * * DATE OF EXAM: May 11 2021 6:06PM WOX [id number] - XR RIB/CHST 3V AP RIB/OBL/CHST L / PROCEDURE REASON: Rib pain on left side * * * * Physician Interpretation * * * * EXAMINATION: CHEST RADIOGRAPH (SINGLE VIEW AP OR PA) and 2 views of left ribs Clinical History: Rib pain on left side M: XC1_4 Comparison: None RESULT: Lines, tubes, and devices: None. Lungs and pleura: No consolidation. No lung mass. No pleural effusion. Cardiomediastinal silhouette: Normal cardiomediastinal silhouette. Other: No evidence of left rib abnormality or acute cardiopulmonary process DIVISION OF RADIOLOGY Provider, Isabella [facility] - 05/11/2021 * * *Final Report* * * DATE OF EXAM: May 11 2021 6:06PM WOX 5243 - XR RIB/CHST 3V AP RIB/OBL/CHST L / PROCEDURE REASON: Rib pain on left side * * * * Physician Interpretation * * * * EXAMINATION: CHEST RADIOGRAPH (SINGLE VIEW AP OR PA) and 2 views of left ribs Clinical History: Rib pain on left side M: XC1_4 Comparison: None RESULT: Lines, tubes, and devices: None. Lungs and pleura: No consolidation. No lung mass. No pleural effusion. Cardiomediastinal silhouette: Normal cardiomediastinal silhouette. Other: No evidence of left rib abnormality or acute cardiopulmonary process IMPRESSION IMPRESSION: No acute radiographic abnormality. 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 Transcribe Date/Time: May 11 2021 6:20P Dictated by : LUIZA CRAFT MD This examination was interpreted and the report reviewed and electronically signed by: LUIZA CRAFT MD on May 11 2021 6:22PM EST [facility] Radiology Study observation (narrative) [facility] XR Ribs - left Views and Sandy st PAOrdered By: Ccf Provider on 05-11-2021 [facility] Blood Pressure Cuff Sizeon 0 11-04-2020 Blood Pressure Cuff Size Large OA-DRELY-I[facility] lcrest Work Phone: Basophil percentageon 2020 Testosterone [Mass/Vol] 6 ng/dL Low 264-916 [facility] Comment on above: Adult male reference interval is based on a population ofhealthy nonobese males (BMI <30) between 19 and 39 yearsold. Amos et.al. JCEM 2017,102;9459-1197. PMID:45712066. Free testosterone percentage on 06-23-2020 Testosterone Free/Testosterone.tota l [Mass fraction] 2.58 % 1.50-4.20 [facility] Comment on above: Performed at: - L ab[address] [id number] Director: Edwin Davila PhD, Phone: [phone] at: BN - [facility] [address] [id number] Director: Kayla Thompson MD, Phone: [phone] Potassiumon 06-23-2020 Potassium 6 ng/dL Low 970-595 [facility] Comment on above: Adult male reference interval is based on a population ofhealthy nonobese males (BMI <30) between 19 and 39 yearsold. Amos et.al. JCEM 2017,102;4025-9788. PMID:51050080. Serum or plasma testosterone free measurement (mass/volume)on 06-23-2020 Testosterone Free [Mass/Vol] 0.15 ng/dL Low 5.00-21.00 [facility] Surgical Pathology Depar tmenton 04-03-2020 [facility] Surgical Pathology Department Name SAE KAPADIA Pathologist: FANI NG MD Date of Procedure: 04/03/2020 Date Received: 04/03/2020 Date Reported 04/06/2020 Submitting Physician: LUIS COONEY MD Location: [facility] FINAL DIAGNOSIS Gilda TAVERAS [id number]: SPECIMEN LABELED RETROPERITONEAL LYMPH NODE, BIOPSY: ADENOCARCINOMA CONSISTENT WITH ORIGIN FROM PROSTATE PRIMARY PER REPORT. MISMATCH REPAIR PROTEIN EXPRESSION Protein: Result MLH-1: Expression Present PMS-2: Expression Present MSH-2: Expression Present MSH-6: Expression Present INTERPRETATION: Neoplasm with normal mismatch repair protein expression. The immunohistochemistry study of DNA mismatch repair protein expression reveals the normal presence of hMLH-1, hMSH2, hMSH6 and hPMS2 in the tumor (normal internal controls stain appropriately). Reference Range: A result is reported Expression Present if any tumor nuclei are stained positive. The findings do not exclude underlying Alford Syndrome (HNPCC) because some mutation may result in intact protein expression. In addition, rare alterations can exist in other mismatch proteins, which have not been tested. In addition, some hereditary colorectal cancers are caused by alteration in other pathways unrelated to DNA Mismatch Repair. COMMENT: KEYTRUDA is indicated for the treatment of adult and pediatric patients with unresectable or metastatic microsatellite instability-high (MSI-H) or mismatch repair deficient (dMMR)solid tumors that have progressed following prior treatment and who have no satisfactory alternative treatment options, or colorectal cancer that has progressed following treatment with fluoropyrimidine, oxaliplatin, and irinotecan. This indication is approved under accelerated approval based on tumor response rate and durability of response. Continued approval for this indication may be contingent upon verification and description of clinical benefit in the confirmatory trials. The safety and effectiveness of KEYTRUDA in pediatric patients with MSI-H central nervous system cancers have not been established. References: Hola Cueva., et al. Phase 3, open-label, randomized study of first-line pembrolizumab (pembro) vs internal investigator-choice chemotherapy for mismatch repair-deficient (dMMR) or microsatellite instability-high (MSI-H) metastatic colorectal carcinoma (mCRC): KEYNOTE-177. (2017): [id number]. Jose Najera, et al. KEYNOTE-164: Phase 2 study of pembrolizumab for patients with previously treated, microsatellite instability-high advanced colorectal carcinoma. (2016): [id number]. Fariha Taylor, et al. Safety and activity of pembrolizumab in patients with locally advanced or metastatic urothelial cancer (KEYNOTE-012): a non-randomized, open-label, phase 1b study.The Lancet Oncology(2017). Brodie Lundberg, et al. OA05. 01 Pembrolizumab in Patients with Extensive-Stage Small Cell Lung Cancer: Updated Survival Results from KEYNOTE-028.Journal of Thoracic Ezdykxog33.1 (2017): S259. Ruben Chan, et al. Pembrolizumab for previously treated advanced cervical squamous cell cancer: Preliminary results from the phase 2 KEYNOTE-158 study. (2017): 9434-4317. Benji Starks. Immunohistochemistry versus microsatellite instability testing for screening colorectal cancer patients at risk for Hereditary Nonpolyposis Colorectal Cancer Syndrome. Part1: The utility of immunohistochemistry. J Mol Diag 10(4):293-300, 2008. DANIEL Lewis, Shirley CASIANO. Colorectal cancer due to deficiency in DNA mismatch repair function: a review. Adv. Sahra Pathol 16: 405-17, 2008. NOTE: Immunohistochemical staining (IHC) is used to determine the presence or absence of protein expression MLH1, MSH2, MSH6 and PMS2. Lymphocytes and normal epithelial cells exhibit strong nuclear staining and serve as Expression Present internal controls for staining of these proteins. Infiltrating tumor cells exhibiting nuclear staining are considered: EXPRESSION PRESENT. MSI-H refers to instability in >30% of microsatellite markers using a PCR-based assay and since most MSI-H tumors correlate well with loss of protein expression for at least 1 of the MMR genes (dMMR), the terms MSI-H and dMMR are often used interchangeably. The stated protein mouse and rabbit monoclonal antibodies (MLH1-clone M1([employer]), MSH2- clone [id number](BRAINDIGIT), MSH6-clone 44 ([employer]), and PMS2- clone [id number](BRAINDIGIT)) staining are performed on formalin fixed paraffin embedded specimens. The method employed was a standard peroxidase labeled-polymer detection system from [employer] (ultraView [place] DAB). Each assay was performed using appropriate Expression Present and negative controls, as well as evaluation of internal controls. ASR: One or more of the reagents used to perform assays on this specimen MAY have contained components considered to be analyte specific reagents (ASR's). ASR's have not been cleared or approved by the U.S. Food and Drug Administration. These assays were developed and their performance characteristics determined by the Department of Pathology at [facility]. The assays were performed with appropriate Expression Present and negative controls, which stained appropriately. CAUTIONS: Test results should be interpreted in context of clinical findings, family history, and other laboratory data. If results obtained do not match other clinical or laboratory findings, please contact the laboratory for possible interpretation. Misinterpretation of results may occur if the information provided is inaccurate or incomplete. RESULTS OF ANCILLARY TESTING ORDERED BY PATIENT'S PHYSICIAN/PATHOLOGIST ON OUTSIDE/ARCHIVED MATERIAL WILL BE RESULTED AN ADDENDUM. NO DIAGNOSIS IS RENDERED ON THIS CASE Electronically Signed Out By FANI NG MD/JAE By the signature on this report, the individual or group listed as making the Final Interpretation/Diagnosis certifies that they have reviewed this case. Addendum/Procedures: Special Oncology Report Date Ordered: 04/06/2020 Status: Signed Out Date Complete: 04/06/2020 Date Reported: 04/06/2020 Addendum Diagnosis Gilda TAVERAS [id number]: SPECIMEN LABELED RETROPERITONEAL LYMPH NODE, BIOPSY: ADENOCARCINOMA CONSISTENT WITH ORIGIN FROM PROSTATE PRIMARY PER REPORT. MISMATCH REPAIR PROTEIN EXPRESSION Protein: Result MLH-1: Expression Present PMS-2: Expression Present MSH-2: Expression Present MSH-6: Expression Present INTERPRETATION: Neoplasm with normal mismatch repair protein expression. The immunohistochemistry study of DNA mismatch repair protein expression reveals the normal presence of hMLH-1, hMSH2, hMSH6 and hPMS2 in the tumor (normal internal controls stain appropriately). Reference Range: A result is reported Expression Present if any tumor nuclei are stained positive. The findings do not exclude underlying Alford Syndrome (HNPCC) because some mutation may result in intact protein expression. In addition, rare alterations can exist in other mismatch proteins, which have not been tested. In addition, some hereditary colorectal cancers are caused by alteration in other pathways unrelated to DNA Mismatch Repair. COMMENT: KEYTRUDA is indicated for the treatment of adult and pediatric patients with unresectable or metastatic microsatellite instability-high (MSI-H) or mismatch repair deficient (dMMR)solid tumors that have progressed following prior treatment and who have no satisfactory alternative treatment options, or colorectal cancer that has progressed following treatment with fluoropyrimidine, oxaliplatin, and irinotecan. This indication is approved under accelerated approval based on tumor response rate and durability of response. Continued approval for this indication may be contingent upon verification and description of clinical benefit in the confirmatory trials. The safety and effectiveness of KEYTRUDA in pediatric patients with MSI-H central nervous system cancers have not been established. References: Hola Cueva, et al. Phase 3, open-label, randomized study of first-line pembrolizumab (pembro) vs internal investigator-choice chemotherapy for mismatch repair-deficient (dMMR) or microsatellite instability-high (MSI-H) metastatic colorectal carcinoma (mCRC): KEYNOTE-177. (2017): [id number]. Jose Najera, et al. KEYNOTE-164: Phase 2 study of pembrolizumab for patients with previously treated, microsatellite instability-high advanced colorectal carcinoma. (2016): [id number]. Fariha Taylor, et al. Safety and activity of pembrolizumab in patients with locally advanced or metastatic urothelial cancer (KEYNOTE-012): a non-randomized, open-label, phase 1b study.The Lancet Oncology(2017). Brodie Lundberg et al. OA05. 01 Pembrolizumab in Patients with Extensive-Stage Small Cell Lung Cancer: Updated Survival Results from KEYNOTE-028.Journal of Thoracic Jvqsqtbv31.1 (2017): S259. Ruben Chan, et al. Pembrolizumab for previously treated advanced cervical squamous cell cancer: Preliminary results from the phase 2 KEYNOTE-158 study. (2017): 2175-5389. Benji Starks. Immunohistochemistry versus microsatellite instability testing for screening colorectal cancer patients at risk for Hereditary Nonpolyposis Colorectal Cancer Syndrome. Part1: The utility of immunohistochemistry. J Mol Diag 10(4):293-300, 2008. DANIEL Lewis, Shirley CASIANO. Colorectal cancer due to deficiency in DNA mismatch repair function: a review. Adv. Sahra Pathol 16: 405-17, 2009. NOTE: Immunohistochemical staining (IHC) is used to determine the presence or absence of protein expression MLH1, MSH2, MSH6 and PMS2. Lymphocytes and normal epithelial cells exhibit strong nuclear staining and serve as Expression Present internal controls for staining of these proteins. Infiltrating tumor cells exhibiting nuclear staining are considered: EXPRESSION PRESENT. MSI-H refers to instability in >30% of microsatellite markers using a PCR-based assay and since most MSI-H tumors correlate well with loss of protein expression for at least 1 of the MMR genes (dMMR), the terms MSI-H and dMMR are often used interchangeably. The stated protein mouse and rabbit monoclonal antibodies (MLH1-clone M1([employer]), MSH2- clone [id number]([employer]), MSH6-clone 44 ([employer]), and PMS2- clone [id number](Cell [employer])) staining are performed on formalin fixed paraffin embedded specimens. The method employed was a standard peroxidase labeled-polymer detection system from [employer] (ultraView [place] DAB). Each assay was performed using appropriate Expression Present and negative controls, as well as evaluation of internal controls. ASR: One or more of the reagents used to perform assays on this specimen MAY have contained components considered to be analyte specific reagents (ASR's). ASR's have not been cleared or approved by the U.S. Food and Drug Administration. These assays were developed and their performance characteristics determined by the Department of Pathology at [facility]. The assays were performed with appropriate Expression Present and negative controls, which stained appropriately. CAUTIONS: Test results should be interpreted in context of clinical findings, family history, and other laboratory data. If results obtained do not match other clinical or laboratory findings, please contact the laboratory for possible interpretation. Misinterpretation of results may occur if the information provided is inaccurate or incomplete. Electronically Signed Out By FANI NG MD/JAE By the signature on this report, the individual or group listed as making the Final Interpretation/Diagnosis certifies that they have reviewed this case. Clinical History: {Not Provided} Specimens Submitted As: A: DARCY [id number] Gross Description: {Not Entered} The assays/tests were performed with appropriate positive and negative controls which stained appropriately. Normal [facility] Comment on above: Performed By: #### U [facility] #### [facility] Surgical Pathology Department [address] [facility] [address] Erythrocyte distribution wid th standard deviationon 08-06-2018 Erythrocyte distribution width (RBC) [Entitic vol] 46.0 fL High 35.1-43.9 [facility] - Hematology and Cell countson 08-06-2018 Erythrocyte distribution width (RBC) [Ratio] 14.4 % 11.6-14.6 [facility] Total cell counton 9 Cells counted Molgen (Bld/Tiss) [#] Not Reportable [facility] No Panel Informationon 07-23 Differential Comment COMMENT [facility] Comment on above: SLIDE SCANNED - NEUT ROPENIA. [place] Bone Imaging Whole Bodyon 12-26-2017 [place] Bone Imaging Whole Body Exam Date/Time:12/26/2017 13:43 EDTReason for Exam:PROSTATE CAReportSTUDY:[facility] Bone Imaging Whole Body; 12/26/2017 1:43 pmINDICATION:PROSTATE CA.COMPARISON:Prior whole body bone scan dated 09/28/2017. 2ORDERING CLINICIAN:Margarito Jernigan:DIVISION OF NUCLEAR MEDICINEBONE SCAN, WHOLE BODY plus REGIONAL VIEWSThe patient received an intravenous dose of 25 mCi of Tc-99m MDP. Anterior and posterior images of the skeleton from skull vertex to feet were then acquired. Additional regional skeletal images were also obtained.FINDINGS:Increas ed intensity in tracer uptake is now seen within several lesions scattered throughout the thoracolumbar spine. This includes activity at the T3 vertebral body, in the left side of T7, at L1, and in the right side of L5. Focal activity in the mid sacral body is more intense, as is the previously seen left ischial lesion. New irregularity in the roof of the left acetabulum likely reflects a new lesion, as does mild focal activity in the right iliac crest. A new lesion is present in the right mid hemithorax, but it is difficult to assess whether this is located within the lateral aspect of the right 6th rib versus located within the adjacent lower scapular body.Mild arthritic changes are again scattered throughout the bilateral shoulders, wrists, knees and ankles.IMPRESSION:Mild interval increase in intensity of several lesions scattered throughout the axial and proximal appendicular skeleton and with several small new foci as described above, highly suspicious for progression of osseous metastatic disease.Exam Date/Time:12/26/2017 13:43 EDTReportThis study was interpreted at [facility]. FINAL REPORT Dictated: 12/26/2017 2:30 pm Zachery Abdalla MDgned (Electronic Signature): 12/26/2017 2:30 pmSigned by: Jackie Abdalla MD Technologist: MAGDA Normal [facility] Testost Totalon 12-23-2017 Testoster Tot 8 ng/dL Normal [facility] Comment on above: Result Comment: MALE SHERI STAGE FEMALE SHERI STAGE 1 <3 1 <3 - 6 2 <3 - 432 2 <3 - 10 3 65 - 778 3 <3 - 24 4 180 - 763 4 <3 - 27 5 188 - 882 5 5 - 38 MALE ADULT 264 - 916 FEMALE ADULT 20-49 years 8 - 48 >49 years 3 - 41 Adult male reference interval is based on a population of healthy nonobese males (BMI <30) between 19 and 39 years old. Amos et.al. JCEM 2017,102;4289-4876. PMID: [id number].Performed At: [facility] [id number] [place], [place] [id number] Vincent PhD Ph:[phone] Performed By: #### 2 [id number] ####AMADO [address] [place] [address] Creatinineon 12-22-2017 Creatinine mass conc 0.8 mg/dL Normal 0.6-1.3 [facility] Comment on above: Performed By: #### 2 [id number] ####AMADO [address] [place] [address] PSA Totalon 12-22-2017 PSA Total 20.49 ng/mL Normal [facility] Comment on above: Result Comment: AGE- SPECIFIC REFERENCE RANGES FOR SERUM PSA REFERENCE RANGE NG/ML AGE ASIANS BLACKS WHITE 40-49 0-2 0-2 0-2.5 50-59 0-3 0-4 0-3.5 60-69 0-4 0-4.5 0-4.5 70-79 0-5 0-5.5 0-6.5 PSA INCREASES WITH AGE, RACE, AND EJACULATION WITHIN 48 HRS. [facility] VOL24,NO.2, , PG.339 Performed By: #### 2 [id number] ####AMADO [address] [place] [address] eGFRon 12-22-2017 eGFR AA >60 Normal [facility] Comment on above: Order Comment: Order added by Discern Expert. Performed By: #### 2 [id number] ####AMADOMagdiel [address] [place] [address] GFR/1.73 sq M predicted among non-blacks MDRD vol rate/area (S/P/Bld) mL/min/{1.73_m2} [facility] Comment on above: Order Comment: Order added by Discern Expert. Performed By: #### 2 [id number] ####AMADO [address] [place] [address] NM Bone Imaging Whole Bodyon 09-28-2017 NM Bone Imaging Whole Body Exam Date/Time:09/28/2017 12:36 EDTReason for Exam:METASTATIC ADENOCARCINOMA;History of cancerReportSTUDY:NM Bone Imaging Whole Body; 09/28/2017 12:36 pmINDICATION:History of cancer. Prostate carcinoma; recent needle biopsy for retroperitoneal lymphadenopathyCOMPARISON :Chest and abdomen CT from 09/13/2017ACCESSION NUMBER(S):[id number] 2ORDERING CLINICIAN:Kathryn KleinTECHNIQUE:AVE ON OF NUCLEAR MEDICINEBONE SCAN, WHOLE BODY plus REGIONAL VIEWSThe patient received an intravenous dose of 27.0 mCi of Tc-99m MDP. Anterior and posterior images of the skeleton from skull vertex to feet were then acquired. Additional regional skeletal images were also obtained.FINDINGS:Scatter ed apparent degenerative changes are seen within the vertebral spine. Recent CT has reported degenerative disease with no sclerotic or lytic changes.A nonspecific punctate focus in the posterior left ilium just inferior to the acetabulum likewise has no reported change on CT.Otherwise, there are no other random focal abnormalities to suggest skeletal metastases.Bilateral renal activity is noted in physiologic intensity.IMPRESSION:1. In the absence of any anatomic changes on CT, the spine and pelvic uptake is likely degenerative and/or inflammatory.2. There is no other sign of skeletal metastases. FINAL REPORT Dictated: 09/28/2017 4:35 pm Vernon Roberts MDigned (Electronic Signature): 09/28/2017 4:35 pmSigned by: Vernon Roberts MD Technologist: CAM Normal [facility] Auto Diffon 09-21-2017 Basophils Auto #/vol (Bld) 0.0 E3/mcL Normal 0.0-0.2 [facility] Comment on above: Order Comment: Order added by Discern Expert. Performed By: #### 1 [id number] ####AMADO McdanielsRrzMzzf8275 [place] [address] Basophils/100 WBC Auto (Bld) 0.4 % Normal 0.0-2.0 [facility] Comment on above: Order Comment: Order added by Shay Expert. Performed By: #### 1 [id number] ####AMADO YwkLjbx3238 [place] [address] Eos Absolute 0.2 E3/mcL Normal 0.0-0.7 [facility] Comment on above: Order Comment: Order added by Discern Expert. Performed By: #### 1 [id number] ####AMADO AkvTxvy2813 [place] [address] Eosinophils/100 WBC Auto (Bld) 3.1 % Normal 0.0-11.0 [facility] Comment on above: Order Comment: Order added by Discern Expert. Performed By: #### 1 [id number] ####AMADO NxuYlyl4167 [place] [address] Lymphocytes Auto #/vol (Bld) 1.2 E3/mcL Normal 1.2-3.4 [facility] Comment on above: Order Comment: Order added by Discern Expert. Performed By: #### 1 [id number] ####AMADO ZjhApsn7584 [place] [address] Lymphocytes/100 WBC Auto (Bld) 21.6 % Normal 20.0-55.0 [facility] Comment on above: Order Comment: Order added by Discern Expert. Performed By: #### 1 [id number] ####AMADO HlmRzyu5801 [place] [address] [place] Absolute 0.5 E3/mcL Normal 0.0-0.7 [facility] Comment on above: Order Comment: Order added by Discern Expert. Performed By: #### 1 [id number] ####AMADO DomHaio9321 [place] [address] Monocytes/100 WBC Auto (Bld) 9.7 % Normal 0.0-10.0 [facility] Comment on above: Order Comment: Order added by Discern Expert. Performed By: #### 1 [id number] ####AMADO VtiFuje3836 [place] [address] Neutro Absolute 3.6 E3/mcL Normal 1.4-6.5 [facility] Comment on above: Order Comment: Order added by Discern Expert. Performed By: #### 1 [id number] ####AMADO ZhrLpkd2264 [place] [address] Neutro Auto 65.2 % Normal 37.0-75.0 [facility] Comment on above: Order Comment: Order added by Discern Expert. Performed By: #### 1 [id number] ####AMADO DclKbvc5051 [place] [address] CBC w/ Auto Diffon 8 Erythrocyte distribution width Auto Ratio (RBC) 12.5 % Normal 11.5-14.5 [facility] Comment on above: Performed By: #### 1 [id number] ####AMADO WmgAaca7270 [place] [address] Hematocrit Auto Volume Fraction (Bld) 43.7 % Normal 42.0-52.0 [facility] Comment on above: Performed By: #### 1 [id number] ####AMADO DqbRzlp5388 [place] [address] Hemoglobin mass conc (Bld) 14.7 g/dL Normal 13.5-18.0 [facility] Comment on above: Performed By: #### 1 [id number] ####AMADO WsbJrud3227 [place] [address] MCH Auto Entitic mass (RBC) 30.3 pg Normal 27.0-31.0 [facility] Comment on above: Performed By: #### 1 [id number] ####AMADOMagdiel MorinPnzWbgg0047 [place] [address] MCHC Auto mass conc (RBC) 33.6 g/dL Normal 33.0-37.0 [facility] Comment on above: Performed By: #### 1 [id number] ####AMADO WloGokp79[address] [place] [id number] MCV Auto Entitic volume (RBC) 90.1 fL Normal 78.0-100.0 [facility] Comment on above: Performed By: #### 1 [id number] ####AMADOMagdiel MorinDzzGzfj5841 [place] [id number] Platelet mean volume Auto Entitic volume (Bld) 8.2 fL Normal 7.4-11.0 [facility] Comment on above: Performed By: #### 1 [id number] ####AMADOMagdiel MorinCwoChnj0786 [place] [id number] Platelets Auto #/vol (Bld) 246 E3/mcL Normal 130-400 [facility] Comment on above: Performed By: #### 1 [id number] ####AMADOMagdiel MorinShgJhbb2322 [place] [id number] RBC Auto #/vol (Bld) 4.85 E6/mcL Normal 3.90-6.10 [facility] Comment on above: Performed By: #### 1 [id number] ####[place] [address] WBC Auto #/vol (Bld) 5.5 E3/mcL Normal 3.6-11.0 [facility] Comment on above: Performed By: #### 1 [id number] ####AMADO HxgPkry7827 [place] [address] CMPon 09-21-2017 Calcium mass conc 9.3 mg/dL Normal 8.4-10.2 [facility] Comment on above: Performed By: #### 1 [id number] ####[place] [address] Chloride molar conc 103 mmol/L Normal 98-107 [facility] Comment on above: Performed By: #### 1 [id number] ####[place] [address] CO2 molar conc 28.6 mmol/L Normal 24.0-30.0 [facility] Comment on above: Performed By: #### 1 [id number] ####AMADOMagdiel MorinExgTvzs3941 [place] [address] Glucose mass conc 117 mg/dL High 70-99 [facility] Comment on above: Performed By: #### 1 [id number] ####AMADOMagdiel MorinCzuIdnx5895 [place] [address] Potassium molar conc 3.8 mmol/L Normal 3.5-5.1 [facility] Comment on above: Performed By: #### 1 [id number] ####AMADOMagdiel MorinAveNadr6209 [place] [address] Sodium molar conc 140 mmol/L Normal 136-145 [facility] Comment on above: Performed By: #### 1 [id number] ####AMADOMagdiel McdanielsCanNasf0083 [place] [address] Albumin mass conc 4.0 g/dL Normal 3.2-5.0 [facility] Comment on above: Performed By: #### 1 [id number] ####AMADOMagdiel MorinLooGbed6767 [place] [address] Albumin/Globulin mass ratio 1.2 {ratio} Normal 1.1-1.9 [facility] Comment on above: Performed By: #### 1 [id number] ####AMADO RwtMeee7263 [place] [address] Alk Phos 48 Int._Unit/L Normal 42-121 [facility] Comment on above: Performed By: #### 1 [id number] ####AMADO YzvMcil1472 [place] [address] ALT enzyme act/vol 16 Int._Unit/L Normal 10-40 [facility] Comment on above: Performed By: #### 1 [id number] ####AMADO GcqJwme0562 [place] [address] AST enzyme act/vol 22 Int._Unit/L Normal 10-42 [facility] Comment on above: Performed By: #### 1 [id number] ####AMADO NetBsfb0191 [place] [address] Bili Total 0.6 mg/dL Normal 0.2-1.0 [facility] Comment on above: Performed By: #### 1 [id number] ####AMADO YdfYxyd2626 [place] [address] Creatinine mass conc 0.7 mg/dL Normal 0.6-1.3 [facility] Comment on above: Performed By: #### 1 [id number] ####AMADO TzwSgtp5536 [place] [address] Globulin Calculated mass conc (S) 3.3 g/dL Normal 2.0-4.0 [facility] Comment on above: Performed By: #### 1 [id number] ####AMADO BvwVuvy3160 [place] [address] Protein mass conc 7.3 g/dL Normal 6.4-8.3 [facility] Comment on above: Performed By: #### 1 [id number] ####AMADO AxsWkaj9653 [place] [address] Urea nitrogen mass conc 15 mg/dL Normal 7-18 [facility] Comment on above: Performed By: #### 1 [id number] ####AMADOMagdiel MorinThsVgug1467 [place] [address] Urea nitrogen/Creatinine mass ratio 21.4 ratio Normal 5.4-30.0 [facility] Comment on above: Performed By: #### 1 [id number] ####AMADO OevYsdw1397 [place] [address] CT Guided Needle Placementon 09-21-2017 CT Guided Needle Placement Exam Date/Time:09/21/2017 09:48 EDTReason for Exam:RETROPERITONEAL LYMPH NODE ADENOPATHY PT IS MULTI DEPARTMENT;Other (please specify)ReportSTUDY:CT Guided Needle Placement; 09/21/2017 9:48 amINDICATION:Retroperiton eal lymphadenopathy.COMPARISO N:None. 2ORDERING CLINICIAN:Kathryn Pfeiffer:The procedure and the benefits, risks and potential complications in addition to alternatives of the procedure were discussed with the patient and signed informed consent was obtained.The physician was assisted by an independent trained observer, an interventional radiology nurse, in the continuous monitoring of patient level of consciousness and physiologic status.FINDINGS:Limited axial CT images were obtained through the abdomen for the purposes of needle guidance were taken. The images demonstrate extensive lymphadenopathy throughout the retroperitoneum. A lymph node is seen in the inferior left retroperitoneum above the level of the iliac crest and was selected for biopsy.Patient was placed in prone position and prepped in the usual sterile manner. Lidocaine was used for local anesthesia. Under direct CT guidance, a 17 gauge coaxial trocar was placed into the left retroperitoneum via a posterior percutaneous approach. After confirmation of the distal tip of the trocar in the posterior aspect of the retroperitoneal lymph node, the inner stylette was withdrawn and an 18 gauge automated cutting needle was placed through the coaxial sheath. 4 biopsy samples are obtained with the 18 gauge automated cutting needle. The stylet was then replaced and the trocar was removed.Postprocedure images demonstrated no evidence of hemorrhage.The sample was sent to pathology and cytology for further analysis.The patient tolerated the procedure well without any immediate complications.IMPRESSION: Exam Date/Time:09/21/2017 09:[address]-guided biopsy, as above. FINAL REPORT Dictated: 09/21/2017 10:33 am Elodia MACDONALD, Ray CSigned (Electronic Signature): 09/21/2017 10:33 amSigned by: Ray Clifton MD Technologist: MICHAEL Normal [facility] CT Thorax w/ Contraston CT Thorax w/ Contrast Exam Date/Time:09/21 09:47 EDTReason for Exam:Other (please specify)ReportSTUDY:CT Thorax w/ Contrast; 09/21/2017 9:47 amINDICATION:Abnormal lymphadenopathy on CT of the abdomen and pelvis.COMPARISON:CT of the abdomen and pelvis dated 09/13/2017ACCESSION NUMBER(S):[id number] 3ORDERING CLINICIAN:Kathryn Pfeiffer:Cony uous axial CT images were obtained through the chest at 2 mm slice thickness followingadministration of intravenous contrast. 75 mL of Optiray 350 was administered. The images were then reconstructed in the coronal and sagittal planes.FINDINGS:POTENTIAL LIMITATIONS OF THE STUDY:NoneCHEST WALL AND LOWER NECK:Evaluation of the visualized neck base demonstrates no gross mass or lymphadenopathy.MEDIASTIN UM AND JORGE:There is no gross axillary, jorge or mediastinal lymphadenopathy identified.HEART:The heart is within normal limits for size. No pericardial effusion is identified.VESSELS:The thoracic aorta is within normal limits for course and caliber, without evidence of aneurysm.LUNG/PLEURA/LARG E AIRWAYS:Linear densities are seen at the lung bases bilaterally, and may represent scarring and/or atelectasis. There is no focal infiltrate, pleural effusion or pneumothorax identified. No discrete pulmonary nodules or masses are seen.UPPER ABDOMEN:Evaluation of the visualized upper abdomen demonstrates enlarged lymph nodes in the retroperitoneum, similar to prior studies.OSSEOUS STRUCTURES:There is no evidence of acute fracture identified. Multilevel degenerative changes are seen in the thoracic spine.Exam Date/Time:09/21/2017 09:47 EDTReportIMPRESSION:1. No discrete pulmonary nodules or lymphadenopathy identified in the chest.2. Enlarged lymph nodes in the retroperitoneum, similar to the prior CT. FINAL REPORT Dictated: 09/21/2017 11:06 am Ray Clifton MD CSigned (Electronic Signature): 09/21/2017 11:06 amSigned by: Ray Clifton MD Technologist: MICHAEL Normal [facility] LDHon 09-21-2017 LDH 164 Int._Unit/L Normal 91-180 [facility] Comment on above: Performed By: #### 2 [id number] ####AMADO Bishopo[address]25 [place] [address] PTon 09-21-2017 INR Coag RelTime (PPP) 1.0 {INR} Normal 1.0-1.2 [facility] Comment on above: Result Comment: INR Recommended Therapeuptic Ranges: Prophylaxis/treatment of DVT and PE?2.0-3.0 Prevention of systemic embolism?.2.0-3.0 Mechanical prosthetic values?2.5-3.5 CRITICAL VALUES?.>4.0 Performed By: #### 2 [id number] ####AMADO [address] [place] [id number] Prothrombin time (PT) Coag time (PPP) 12.4 second(s) Normal 11.6-14.6 [facility] Comment on above: Performed By: #### 2 [id number] ####AMADO Bishopo[address] [place] [address] PTTon 09-21-2017 aPTT Coag time (Bld) 30.5 second(s) Normal 23.2-36.4 [facility] Comment on above: Performed By: #### 1 [id number] ####AMADO McdanielsHimMscc4334 [place] [address] PTT Control Ratioon 09-22-19 18 PTT Ratio 1.0 ratio Normal 0.8-1.2 [facility] Comment on above: Order Comment: Order added by Discern Expert. Performed By: #### 1 [id number] ####AMADO McdanielsBwoOuyy8350 [place] [address] eGFRon 09-21-2017 eGFR AA >60 Normal [facility] Comment on above: Order Comment: Order added by Discern Expert. Performed By: #### 1 [id number] ####AMADO McdanielsFchSjts9132 [place] [address] GFR/1.73 sq M predicted among non-blacks MDRD vol rate/area (S/P/Bld) mL/min/{1.73_m2} Normal [facility] Comment on above: Order Comment: Order added by Discern Expert. Performed By: #### 1 [id number] ####AMADO PldDsfb2573 [place] [address] CT Abdomen/Pelvis w/ Contras ton 09-13-2017 CT Abdomen/Pelvis w/ Contrast Exam Date/Time:09/13/2017 14:16 EDTReason for Exam:GROIN SWELLING LEG SWELLING;Other (please specify)ReportSTUDY:CT Abdomen/Pelvis w/ Contrast; 09/13/2017 2:16 pmINDICATION:Other (please specify).COMPARISON:None. 9ORDERING CLINICIAN:Kathryn Pfeiffer:CT of the abdomen and pelvis was performed. Contiguous axial images were obtained at 3 mm slice thickness through the abdomen and pelvis. Coronal and sagittal reconstructions at 3 mm slice thickness were performed. 100 mL of Omnipaque 350 was injected intravenously. Oral contrast: Dilute OmnipaqueFINDINGS:LOWER CHEST:Several basilar linearities indicating scar and/or atelectasis.ABDOMEN:LIVER :The liver is normal in size without evidence of focal liver lesions.SPLEEN:The spleen is normal in size and homogeneous.ADRENAL GLANDS:Bilateral adrenal glands appear normal.KIDNEYS AND URETERS:The renal cortices are unremarkable and the renal sizes within normal limits.The ureteral courses are unremarkable without dilatation or radiodense calculi.PANCREAS:The pancreas appears unremarkable, there is no ductal dilatation or masses.GALLBLADDER:No radiodense calculi, wall thickening or pericholecystic fluid.Exam Date/Time:09/13/2017 14:16 EDTReportBILE DUCTS:There is no biliary dilatation or filling defects.VESSELS:The aorta and IVC are within normal limits.PERITONEUM AND RETROPERITONEUM:No ascites or free air, no fluid collection.There is fairly marked retroperitoneal periaortic and left iliac adenopathy. This measures up to 5.6 cm of the lower periaortic/common iliac chain, and with an external iliac node on the left measuring up to 3.7 cm in short axis. This does appear to compress the proximal aspect of the left external iliac vein, and displaces the left iliac vasculature towards the right. This adenopathy would be suspicious for malignancy such as lymphoma, prostatic carcinoma etc.No enlarged mesenteric lymph nodes.BOWEL:The bowel is unremarkable, without significant dilatation or mucosal edema.PELVIS:BLADDER:The urinary bladder is decompressed, limited for evaluation.REPRODUCTIVE ORGANS:Mild prostatomegaly with gland measuring 6.4 cm.BONE, ABDOMINAL WALL AND OTHER FINDINGS:There is moderate spondylosis. Spondylolysis is also noted at the L5-S1 level with only mild approximate 3 mm anterolisthesis.The abdominal wall soft tissues appear normal.IMPRESSION:1. Marked retroperitoneal periaortic and left iliac adenopathy, suspicious for malignancy. This does compress the left iliac vasculature which is also deviated to the right.2. Mild prostatomegaly.3. Spondylosis with slight anterolisthesis at the L5-S1 level but also with spondylolysis. FINAL REPORT Dictated: 09/13/2017 2:40 pm Benny Lopez MD ASigned (Electronic Signature): 09/13/2017 2:40 pmSigned by: Benny Lopez MD Technologist: MM, Normal [facility] Auto Diffon 06-22-2017 Basophils Auto #/vol (Bld) 0.0 E3/mcL Normal 0.0-0.2 [facility] Comment on above: Order Comment: Order Added by Discern Expert. Performed By: #### 2 [id number] ####AMADO EveEazy5341 [place] [address] Basophils/100 WBC Auto (Bld) 0.6 % Normal 0.0-2.0 [facility] Comment on above: Order Comment: Order Added by Discern Expert. Performed By: #### 2 [id number] ####AMADO IdmXfsz3202 [place] [address] Eos Absolute 0.2 E3/mcL Normal 0.0-0.7 [facility] Comment on above: Order Comment: Order Added by Discern Expert. Performed By: #### 2 [id number] ####AMADO SbzVcuy2379 [place] [address] Eosinophils/100 WBC Auto (Bld) 3.3 % Normal 0.0-11.0 [facility] Comment on above: Order Comment: Order Added by Discern Expert. Performed By: #### 2 [id number] ####AMADO Bishopo1025 [place] [address] Lymphocytes Auto #/vol (Bld) 1.2 E3/mcL Normal 1.2-3.4 [facility] Comment on above: Order Comment: Order Added by Discern Expert. Performed By: #### 2 [id number] ####AMADO Bishopo[address] [place] [address] Lymphocytes/100 WBC Auto (Bld) 23.4 % Normal 20.0-55.0 [facility] Comment on above: Order Comment: Order Added by Discern Expert. Performed By: #### 2 [id number] ####AMADO Bishopo[address] [place] [address] [place] Absolute 0.6 E3/mcL Normal 0.0-0.7 [facility] Comment on above: Order Comment: Order Added by Discern Expert. Performed By: #### 2 [id number] ####AMADO Bishopo[address] [place] [address] Monocytes/100 WBC Auto (Bld) 11.6 % High 0.0-10.0 [facility] Comment on above: Order Comment: Order Added by Discern Expert. Performed By: #### 2 [id number] ####AMADO Bishopo[address] [place] [address] Neutro Absolute 3.1 E3/mcL Normal 1.4-6.5 [facility] Comment on above: Order Comment: Order Added by Discern Expert. Performed By: #### 2 [id number] ####AMADO McdanielsDexLdzj7364 [place] [address] Neutro Auto 61.1 % Normal 37.0-75.0 [facility] Comment on above: Order Comment: Order Added by Discern Expert. Performed By: #### 2 [id number] ####AMADO Bishopo[address] [place] [address] CBC w/ Auto Diffon 8 Erythrocyte distribution width Auto Ratio (RBC) 13.1 % Normal 11.5-14.5 [facility] Comment on above: Performed By: #### 2 [id number] ####AMADO McdanielsCdfVlid4739 [place] [address] Hematocrit Auto Volume Fraction (Bld) 45.9 % Normal 42.0-52.0 [facility] Comment on above: Performed By: #### 2 [id number] ####AMADO McdanielsQpgXhsv3804 [place] [address] Hemoglobin mass conc (Bld) 15.6 g/dL Normal 13.5-18.0 [facility] Comment on above: Performed By: #### 2 [id number] ####AMADO McdanielsUumJlra3550 [place] [address] MCH Auto Entitic mass (RBC) 30.2 pg Normal 27.0-31.0 [facility] Comment on above: Performed By: #### 2 [id number] ####AMADO McdanielsBdcFyfr2474 [place] [address] MCHC Auto mass conc (RBC) 33.9 g/dL Normal 33.0-37.0 [facility] Comment on above: Performed By: #### 2 [id number] ####AMADO McdanielsVddSbkx8003 [place] [address] MCV Auto Entitic volume (RBC) 89.0 fL Normal 78.0-100.0 [facility] Comment on above: Performed By: #### 2 [id number] ####AMADO McdanielsMzhUask7175 [place] [address] Platelet mean volume Auto Entitic volume (Bld) 7.6 fL Normal 7.4-11.0 [facility] Comment on above: Performed By: #### 2 [id number] ####AMADO McdanielsOycObmv8969 [place] [address] Platelets Auto #/vol (Bld) 241 E3/mcL Normal 130-400 [facility] Comment on above: Performed By: #### 2 [id number] ####AMADO McdanielsOnhFlzs8714 [place] [address] RBC Auto #/vol (Bld) 5.16 E6/mcL Normal 3.90-6.10 [facility] Comment on above: Performed By: #### 2 852153 ####AMADO Bishopo[address]25 [place] [address] WBC Auto #/vol (Bld) 5.1 E3/mcL Normal 3.6-11.0 [facility] Comment on above: Performed By: #### 2 [id number] ####AMADO McdanielsEjvIulb0892 [place] [address] CMPon 06-22-2017 Albumin mass conc 4.2 g/dL Normal 3.2-5.0 [facility] Comment on above: Performed By: #### 2 [id number] ####AMADO McdanielsWojQjpt6622 [place] [address] Albumin/Globulin mass ratio 1.3 {ratio} Normal 1.1-1.9 [facility] Comment on above: Performed By: #### 2 [id number] ####AMADO Morin1025 [place] [address] Alk Phos 57 Int._Unit/L Normal 42-121 [facility] Comment on above: Performed By: #### 2 [id number] ####AMADO Morin1025 [place] [address] ALT enzyme act/vol 30 Int._Unit/L Normal 10-40 [facility] Comment on above: Performed By: #### 2 [id number] ####AMADO McdanielsTbmYdmh8004 [place] [address] AST enzyme act/vol 34 Int._Unit/L Normal 10-42 [facility] Comment on above: Performed By: #### 2 [id number] ####AMADO McdanielsJvlRmyu0408 [place] [address] Bili Total 0.5 mg/dL Normal 0.2-1.0 [facility] Comment on above: Performed By: #### 2 [id number] ####AMADO McdanielsTirAbpf5390 [place] [address] Calcium mass conc 9.4 mg/dL Normal 8.4-10.2 [facility] Comment on above: Performed By: #### 2 [id number] ####AMADO McdanielsYiaScvm5707 [place] [address] Chloride molar conc 97 mmol/L Low 98-107 [facility] Comment on above: Performed By: #### 2 [id number] ####AMADO XkrXrdb4912 [place] [address] CO2 molar conc 29.5 mmol/L Normal 24.0-30.0 [facility] Comment on above: Performed By: #### 2 [id number] ####AMADO DbnQcly1079 [place] [address] Creatinine mass conc 0.7 mg/dL Normal 0.6-1.3 [facility] Comment on above: Performed By: #### 2 [id number] ####AMADO [id number] [place] [address] Globulin Calculated mass conc (S) 3.2 g/dL Normal 2.0-4.0 [facility] Comment on above: Performed By: #### 2 [id number] ####AMADO BbgKyag8730 [place] [address] Glucose mass conc 105 mg/dL High 70-99 [facility] Comment on above: Performed By: #### 2 [id number] ####AMADO MpeThck5795 [place] [address] Potassium molar conc 4.6 mmol/L Normal 3.5-5.1 [facility] Comment on above: Performed By: #### 2 [id number] ####AMADO KddTvph2792 [place] [address] Protein mass conc 7.4 g/dL Normal 6.4-8.3 [facility] Comment on above: Performed By: #### 2 [id number] ####AMADO HqxWxcq4777 [place] [address] Sodium molar conc 133 mmol/L Low 136-145 [facility] Comment on above: Performed By: #### 2 [id number] ####AMADO PfgQoqd1761 [place] [address] Urea nitrogen mass conc 15 mg/dL Normal 7-18 [facility] Comment on above: Performed By: #### 2 [id number] ####AMADO PzlNuhu4766 [place] [address] Urea nitrogen/Creatinine mass ratio 21.4 ratio Normal 5.4-30.0 [facility] Comment on above: Performed By: #### 2 [id number] ####AMADO McdanielsBpjPrjm9868 [place] [address] OxmC6mei 06-22-2017 Hemoglobin A1c/Hemoglobin.total mass fraction (Bld) 5.6 % Normal 4.0-6.3 [facility] Comment on above: Performed By: #### 1 [id number] ####AMADO McdanielsVqvRjqn9100 [place] [address] TSHon 06-22-2017 Thyrotropin Qn 2.18 mIU/m Normal 0.30-5.60 [facility] Comment on above: Performed By: #### 1 [id number] ####AMADO Morin1025 [place] [address] XR Spine Thoracic 3 Viewson 06-22-2017 XR Spine Thoracic 3 Views Exam Date/Time:06/22/2017 11:57 EDTReason for Exam:Other (please specify)ReportTHORACIC SPINE:ADDITIONAL CLINICAL INFORMATION: Upper back pain for two months.COMPARISON: None.FINDINGS: Three views of the thoracic spine were obtained. Moderate multileveldegenerative disc disease is present involving the mid and inferior aspect ofthe thoracic spine. There is no evidence of fracture or spondylolisthesis. Aslight levoconvex scoliotic curvature is present.IMPRESSION:1. No evidence of fracture or spondylolisthesis.2. Moderate multilevel degenerative disc disease. Slight levoconvex scolioticcurvature. FINAL REPORT Dictated: 06/22/2017 5:00 pm Pura Marie MDSigned (Electronic Signature): 06/22/2017 5:00 pmSigned by: Pura Marie MD Technologist: GLP [facility] eGFRon 06-22-2017 eGFR AA >60 [facility] Comment on above: Order Comment: Order added by Discern Expert. Performed By: #### 1 [id number] ####AMADO McdanielsNxaPlrh3397 [place] [address] GFR/1.73 sq M predicted among non-blacks MDRD vol rate/area (S/P/Bld) mL/min/{1.73_m2} [facility] Comment on above: Order Comment: Order added by Discern Expert. Performed By: #### 1 [id number] ####AMADO McdanielsMfqJfnh7989 [place] [address] .Manual Abson 06-19-2017 Basophil Abs Man 0.0 10x3/ Normal 0.0-0.2 [facility] Comment on above: Order Comment: Order Added by Discern Expert. Performed By: #### 3 [id number] ####AMADO HlmYcoh1240 [place] [address] Eos Abs Man 0.1 10x3/ Normal 0.0-0.5 [facility] Comment on above: Order Comment: Order Added by Shay Expert. Performed By: #### 3 [id number] ####AMADO YamSnmq8060 [place] [address] Lymph Abs Man 0.7 10x3/ Low 1.2-3.4 [facility] Comment on above: Order Comment: Order Added by Discern Expert. Performed By: #### 3 [id number] ####AMADO XdbWjzv6082 [place] [address] Nowata Abs Man 0.6 10x3/ Normal 0.0-0.7 [facility] Comment on above: Order Comment: Order Added by Discern Expert. Performed By: #### 3 [id number] ####AMADO BalSick2058 [place] [address] Segs Abs Man 12.2 10x3/ High 1.4-6.5 [facility] Comment on above: Order Comment: Order Added by Discern Expert. Performed By: #### 3 [id number] ####AMADO ExyBxwd2586 [place] [address] CBC w/ Auto Diffon 8 Erythrocyte distribution width Auto Ratio (RBC) 13.1 % Normal 11.5-14.5 [facility] Comment on above: Performed By: #### 2 [id number] ####AMADO OppVvwt9726 [place] [address] Hematocrit Auto Volume Fraction (Bld) 47.8 % Normal 42.0-52.0 [facility] Comment on above: Performed By: #### 2 [id number] ####AMADOMagdiel BishopHpbMunk5180 [place] [id number] Hemoglobin mass conc (Bld) 16.4 g/dL Normal 13.5-18.0 [facility] Comment on above: Performed By: #### 2 [id number] ####AMADO Bishopo1025 [place] [id number] MCH Auto Entitic mass (RBC) 30.5 pg Normal 27.0-31.0 [facility] Comment on above: Performed By: #### 2 [id number] ####AMADO Bishopo1025 [place] [address] MCHC Auto mass conc (RBC) 34.4 g/dL Normal 33.0-37.0 [facility] Comment on above: Performed By: #### 2 [id number] ####AMADO Bishopo1025 [place] [id number] MCV Auto Entitic volume (RBC) 88.9 fL Normal 78.0-100.0 [facility] Comment on above: Performed By: #### 2 [id number] ####AMADO Bishopo1025 [place] [address] Platelet mean volume Auto Entitic volume (Bld) 7.7 fL Normal 7.4-11.0 [facility] Comment on above: Performed By: #### 2 [id number] ####AMADO Bishopo1025 [place] [id number] Platelets Auto #/vol (Bld) 265 E3/mcL Normal 130-400 [facility] Comment on above: Performed By: #### 2 [id number] ####AMADO Bishopo1025 [place] [id number] RBC Auto #/vol (Bld) 5.38 E6/mcL Normal 3.90-6.10 [facility] Comment on above: Performed By: #### 2 [id number] ####AMADO Bishopo1025 [place] [id number] WBC Auto #/vol (Bld) 13.9 E3/mcL High 3.6-11.0 [facility] Comment on above: Performed By: #### 2 [id number] ####AMADO McdanielsQknBcvd6233 [place] [id number] CMPon 06-19-2017 Albumin mass conc 4.6 g/dL Normal 3.2-5.0 [facility] Comment on above: Performed By: #### 2 [id number] ####AMADO TbiNnqv3850 [place] [address] Albumin/Globulin mass ratio 1.4 {ratio} Normal 1.1-1.9 [facility] Comment on above: Performed By: #### 2 [id number] ####AMADO MsuLpdc2506 [place] [address] Alk Phos 67 Int._Unit/L Normal 42-121 [facility] Comment on above: Performed By: #### 2 [id number] ####AMADO UkhUuep6366 [place] [address] ALT enzyme act/vol 37 Int._Unit/L Normal 10-40 [facility] Comment on above: Performed By: #### 2 [id number] ####AMADO QcaIhjx7290 [place] [address] AST enzyme act/vol 31 Int._Unit/L Normal 10-42 [facility] Comment on above: Performed By: #### 2 [id number] ####AMADO CwhHxob8543 [place] [address] Bili Total 0.7 mg/dL Normal 0.2-1.0 [facility] Comment on above: Performed By: #### 2 [id number] ####AMADO CwmBeei8443 [place] [address] Calcium mass conc 9.8 mg/dL Normal 8.4-10.2 [facility] Comment on above: Performed By: #### 2 [id number] ####AMADOMagdiel MorinYskGamj7203 [place] [address] Chloride molar conc 101 mmol/L Normal 98-107 [facility] Comment on above: Performed By: #### 2 [id number] ####AMADO HwlNkrw0993 [place] [address] CO2 molar conc 28.6 mmol/L Normal 24.0-30.0 [facility] Comment on above: Performed By: #### 2 [id number] ####AMADOMagdiel MorinSifXutm0289 [place] [address] Creatinine mass conc 0.8 mg/dL Normal 0.6-1.3 [facility] Comment on above: Performed By: #### 2 [id number] ####AMADOMagdiel MorinLtcAlgd4247 [place] [address] Globulin Calculated mass conc (S) 3.4 g/dL Normal 2.0-4.0 [facility] Comment on above: Performed By: #### 2 [id number] ####AMADOMagdiel MorinOrpEdzo7982 [place] [address] Glucose mass conc 119 mg/dL High 70-99 [facility] Comment on above: Performed By: #### 2 [id number] ####AMADOMagdiel McdanielsTfsNdbx5964 [place] [address] Potassium molar conc 4.8 mmol/L Normal 3.5-5.1 [facility] Comment on above: Performed By: #### 2 536361 ####AMADOMagdiel MorinZnhMahj5706 [place] [address] Protein mass conc 8.0 g/dL Normal 6.4-8.3 [facility] Comment on above: Performed By: #### 2 [id number] ####AMADOMagdiel McdanielsYquFpcu2256 [place] [address] Sodium molar conc 137 mmol/L Normal 136-145 [facility] Comment on above: Performed By: #### 2 [id number] ####AMADOMagdiel McdanielsNiyNzbw1223 [place] [address] Urea nitrogen mass conc 28 mg/dL High 7-18 [facility] Comment on above: Performed By: #### 2 720307 ####AMADOMagdiel McdanielsMviZedq4539 [place] [address] Urea nitrogen/Creatinine mass ratio 35.0 ratio High 5.4-30.0 [facility] Comment on above: Performed By: #### 2 [id number] ####AMADOMagdiel McdanielsLpdHqny9125 [place] [address] Manual Diffon 06-19-2017 Band Man 2 High 0-1 [facility] Comment on above: Order Comment: Order Added by Discern Expert. Performed By: #### 2 [id number] ####AMADO McdanielsGbsKmgi8053 [place] [address] Basophil Man 0 % Normal 0-1 [facility] Comment on above: Order Comment: Order Added by Discern Expert. Performed By: #### 2 [id number] ####AMADO Bishopo1025 [place] [address] Eos Man 1 % Normal 0-5 [facility] Comment on above: Order Comment: Order Added by Discern Expert. Performed By: #### 2 [id number] ####AMADO Bishopo1025 [place] [address] Lymph Man 5 % Low 14-48 [facility] Comment on above: Order Comment: Order Added by Discern Expert. Performed By: #### 2 [id number] ####AMADO Bishopo1025 [place] [address] Monocyte Man 4 % Normal 1-11 [facility] Comment on above: Order Comment: Order Added by Discern Expert. Performed By: #### 2 [id number] ####AMADO Bishopo1025 [place] [address] RBC Morph NORMAL Normal [facility] Comment on above: Order Comment: Order Added by Discern Expert. Performed By: #### 2 [id number] ####AMADO McdanielsHywGbcj4636 [place] [address] Segs Man 88 % High 37-75 [facility] Comment on above: Order Comment: Order Added by Discern Expert. Performed By: #### 2 [id number] ####AMADOMagdiel McdanielsRtwKiiy4185 [place] [address] eGFRon 06-19-2017 eGFR AA >60 [facility] Comment on above: Order Comment: Order added by Discern Expert. Performed By: #### 1 [id number] ####AMADOMagdiel McdanielsDclIgow4259 [place] [id number] GFR/1.73 sq M predicted among non-blacks MDRD vol rate/area (S/P/Bld) mL/min/{1.73_m2} Normal [facility] Comment on above: Order Comment: Order added by Discern Expert. Performed By: #### 1 [id number] ####AMADOMagdiel McdanielsVefWgat1827 [place] [address] zzplt morphon 06-19-2017 Platelet morphology finding Nom (Bld) NORMAL Normal [facility] Comment on above: Performed By: #### 9 [id number] ####AMADO NzzXxqo3116 [place] [id number] Platelets Auto #/vol (Bld) NORMAL Normal [facility] Comment on above: Performed By: #### 9 [id number] ####AMADO OcyDesl4387 [place] [id number] No Panel Information [facility] Vital Signs Date Time Vital Sign Value Performing Clinician Facility 01-27-2025 09:50-0500 Body mass index (BMI) [Ratio] 26.32 kg/m2 Ness Mckinnon MD Work Phone: [facility] 01-27-2025 09:50-0500 Body weight 92.99 kg Ness Mckinnon MD Work Phone: [facility] 01-02-2025 14:41-0400 Body height 187.96 cm Isiah Newbill PA Work Phone: [facility] 01-02-2025 14:41-0400 Body mass index (BMI) [Ratio] 26.5 kg/m2 Isiah Newbill PA Work Phone: [facility] 01-02-2025 14:41-0400 Body temperature 98.3 [degF] Isiah Newbill PA Work Phone: [facility] 01-02-2025 14:41-0400 Body weight 93.66 kg Isiah Newbill PA Work Phone: [facility] 01-02-2025 14:41-0400 Diastolic blood pressure 91 mm[Hg] Isiah Newbill PA Work Phone: [facility] 01-02-2025 14:41-0400 Heart rate 79 /min Isiah Newbill PA Work Phone: [facility] 01-02-2025 14:41-0400 Respiratory rate 16 /min Isiah Newbill PA Work Phone: [facility] 01-02-2025 14:41-0400 SaO2% (BldA) [Mass fraction] 97 % Isiah Newbill PA Work Phone: [facility] 01-02-2025 14:41-0400 Systolic blood pressure 148 mm[Hg] Isiah Newbill PA Work Phone: [facility] 11-21-2024 15:07-0400 Body temperature 96.9 [degF] Isiah Newbill PA Work Phone: [facility] 11-21-2024 15:07-0400 Diastolic blood pressure 82 mm[Hg] Isiah Newbill PA Work Phone: [facility] 11-21-2024 15:07-0400 Heart rate 73 /min Isiah Newbill PA Work Phone: [facility] 11-21-2024 15:07-0400 Respiratory rate 16 /min Isiah Newbill PA Work Phone: [facility] 11-21-2024 15:07-0400 SaO2% (BldA) [Mass fraction] 97 % Isiah Newbill PA Work Phone: [facility] 11-21-2024 15:07-0400 Systolic blood pressure 130 mm[Hg] Isiah Newbill PA Work Phone: [facility] 11-21-2024 13:15-0400 Body height 187.96 cm Isiah Newbill PA Work Phone: [facility] 11-21-2024 13:15-0400 Body mass index (BMI) [Ratio] 26.4 kg/m2 Isiah Newbill PA Work Phone: [facility] 11-21-2024 13:15-0400 Body temperature 98.3 [degF] Isiah Newbill PA Work Phone: [facility] 11-21-2024 13:15-0400 Body weight 93.18 kg Isiah Newbill PA Work Phone: [facility] 11-21-2024 13:15-0400 Diastolic blood pressure 78 mm[Hg] Isiah Newbill PA Work Phone: [facility] 11-21-2024 13:15-0400 Heart rate 69 /min Isiah Newbill PA Work Phone: [facility] 11-21-2024 13:15-0400 Respiratory rate 18 /min Isiah Newbill PA Work Phone: [facility] 11-21-2024 13:15-0400 SaO2% (BldA) [Mass fraction] 96 % Isiah Newbill PA Work Phone: [facility] 11-21-2024 13:15-0400 Systolic blood pressure 147 mm[Hg] Isiah Newbill PA Work Phone: [facility] 10-10-2024 11:29-0400 Body height 187.96 cm Isiah Newbill PA Work Phone: [facility] 10-10-2024 11:29-0400 Body mass index (BMI) [Ratio] 26.2 kg/m2 Isiah Newbill PA Work Phone: [facility] 10-10-2024 11:29-0400 Body temperature 98.1 [degF] Isiah Newbill PA Work Phone: [facility] 10-10-2024 11:29-0400 Body weight 92.73 kg Isiah Newbill PA Work Phone: [facility] 10-10-2024 11:29-0400 Diastolic blood pressure 92 mm[Hg] Isiah Newbill PA Work Phone: [facility] 10-10-2024 11:29-0400 Heart rate 63 /min Isiah Newbill PA Work Phone: [facility] 10-10-2024 11:29-0400 Respiratory rate 18 /min Isiah Newbill PA Work Phone: [facility] 10-10-2024 11:29-0400 SaO2% (BldA) [Mass fraction] 97 % Isiah Newbill PA Work Phone: [facility] 10-10-2024 11:29-0400 Systolic blood pressure 146 mm[Hg] Isiah Newbill PA Work Phone: [facility] 08-29-2024 13:20-0400 Diastolic blood pressure 82 mm[Hg] Isiah Newbill PA Work Phone: [facility] 08-29-2024 13:20-0400 Heart rate 63 /min Isiah Newbill PA Work Phone: [facility] 08-29-2024 13:20-0400 Systolic blood pressure 135 mm[Hg] Isiah Newbill PA Work Phone: [facility] 08-29-2024 11:35-0400 Body height 187.96 cm Isiah Newbill PA Work Phone: [facility] 08-29-2024 11:35-0400 Body mass index (BMI) [Ratio] 25.7 kg/m2 Isiah Newbill PA Work Phone: [facility] 08-29-2024 11:35-0400 Body temperature 98.4 [degF] Isiah Newbill PA Work Phone: [facility] 08-29-2024 11:35-0400 Body weight 90.94 kg Isiah Newbill PA Work Phone: [facility] 08-29-2024 11:35-0400 Diastolic blood pressure 90 mm[Hg] Isiah Newbill PA Work Phone: [facility] 08-29-2024 11:35-0400 Heart rate 58 /min Isiah Newbill PA Work Phone: [facility] 08-29-2024 11:35-0400 Respiratory rate 16 /min Isiah Newbill PA Work Phone: [facility] 08-29-2024 11:35-0400 SaO2% (BldA) [Mass fraction] 96 % Isiah Newbill PA Work Phone: [facility] 08-29-2024 11:35-0400 Systolic blood pressure 160 mm[Hg] Isiah Newbill PA Work Phone: [facility] 07-18-2024 13:55-0400 Body mass index (BMI) [Ratio] 26.2 kg/m2 Isiah Newbill PA Work Phone: [facility] 07-18-2024 13:55-0400 Body temperature 97.9 [degF] Isiah Newbill PA Work Phone: [facility] 07-18-2024 13:55-0400 Body weight 92.78 kg Isiah Newbill PA Work Phone: [facility] 07-18-2024 13:55-0400 Diastolic blood pressure 84 mm[Hg] Isiah Newbill PA Work Phone: [facility] 07-18-2024 13:55-0400 Heart rate 62 /min Isiah Newbill PA Work Phone: [facility] 07-18-2024 13:55-0400 Respiratory rate 18 /min Isiah Newbill PA Work Phone: [facility] 07-18-2024 13:55-0400 SaO2% (BldA) [Mass fraction] 96 % Isiah Newbill PA Work Phone: [facility] 07-18-2024 13:55-0400 Systolic blood pressure 151 mm[Hg] Isiah Newbill PA Work Phone: [facility] 06-06-2024 13:04-0400 Diastolic blood pressure 77 mm[Hg] Isiah Newbill PA Work Phone: [facility] 06-06-2024 13:04-0400 Heart rate 58 /min Isiah Newbill PA Work Phone: [facility] 06-06-2024 13:04-0400 Systolic blood pressure 141 mm[Hg] Isiah Newbill PA Work Phone: [facility] 06-06-2024 10:24-0400 Body mass index (BMI) [Ratio] 25.7 kg/m2 Isiah Newbill PA Work Phone: [facility] 06-06-2024 10:24-0400 Body temperature 98 [degF] Isiah Newbill PA Work Phone: [facility] 06-06-2024 10:24-0400 Body weight 90.86 kg Isiah Newbill PA Work Phone: [facility] 06-06-2024 10:24-0400 Diastolic blood pressure 90 mm[Hg] Isiah Newbill PA Work Phone: [facility] 06-06-2024 10:24-0400 Heart rate 63 /min Isiah Newbill PA Work Phone: [facility] 06-06-2024 10:24-0400 Respiratory rate 18 /min Isiah Newbill PA Work Phone: [facility] 06-06-2024 10:24-0400 SaO2% (BldA) [Mass fraction] 98 % Isiah Newbill PA Work Phone: [facility] 06-06-2024 10:24-0400 Systolic blood pressure 153 mm[Hg] Isiah Newbill PA Work Phone: [facility] 05-14-2024 09:53-0500 Body height 188 cm Emy Velez VISUAL SPECIALIST-SOIL CONSERVATIONIST Work Phone: [facility] 05-14-2024 09:53-0500 Body mass index (BMI) [Ratio] 26.06 kg/m2 Emy Velez VISUAL SPECIALIST-SOIL CONSERVATIONIST Work Phone: [facility] 05-14-2024 09:53-0500 Body weight 92.08 kg Emy Velez VISUAL SPECIALIST-SOIL CONSERVATIONIST Work Phone: [facility] 05-14-2024 09:53-0500 Diastolic blood pressure 89 mm[Hg] Emy Velez VISUAL SPECIALIST-SOIL CONSERVATIONIST Work Phone: [facility] 05-14-2024 09:53-0500 Heart rate 61 /min Emy Velez VISUAL SPECIALIST-SOIL CONSERVATIONIST Work Phone: [facility] 05-14-2024 09:53-0500 Systolic blood pressure 161 mm[Hg] Emy Velez VISUAL SPECIALIST-SOIL CONSERVATIONIST Work Phone: [facility] 05-01-2024 13:13-0500 Body mass index (BMI) [Ratio] 26.1 kg/m2 Isiah Newbill PA Work Phone: [facility] 05-01-2024 13:13-0500 Body temperature 98.4 [degF] Isiah Newbill PA Work Phone: [facility] 05-01-2024 13:13-0500 Body weight 92.27 kg Isiah Newbill PA Work Phone: [facility] 05-01-2024 13:13-0500 Diastolic blood pressure 88 mm[Hg] Isiah Newbill PA Work Phone: [facility] 05-01-2024 13:13-0500 Heart rate 72 /min Isiah Newbill PA Work Phone: [facility] 05-01-2024 13:13-0500 Respiratory rate 18 /min Isiah Newbill PA Work Phone: [facility] 05-01-2024 13:13-0500 SaO2% (BldA) [Mass fraction] 96 % Isiah Newbill PA Work Phone: [facility] 05-01-2024 13:13-0500 Systolic blood pressure 160 mm[Hg] Isiah Newbill PA Work Phone: [facility] 03-08-2024 13:53-0500 Body temperature 96 [degF] Isiah Newbill PA Work Phone: [facility] 03-08-2024 13:53-0500 Respiratory rate 16 /min Isiah Newbill PA Work Phone: [facility] 03-08-2024 13:53-0500 SaO2% (BldA) [Mass fraction] 97 % Isiah Newbill PA Work Phone: [facility] 02-14-2024 10:29-0500 Body mass index (BMI) [Ratio] 25.9 kg/m2 Isiah Newbill PA Work Phone: [facility] 12-01-2023 13:46-0400 Body height 188 cm Emy Rosie VISUAL SPECIALIST-SOIL CONSERVATIONIST Work Phone: [facility] 12-01-2023 13:46-0400 Body mass index (BMI) [Ratio] 26.14 kg/m2 Emy Rosie VISUAL SPECIALIST-SOIL CONSERVATIONIST Work Phone: [facility] 12-01-2023 13:46-0400 Body weight 92.35 kg Emy Rosie VISUAL SPECIALIST-SOIL CONSERVATIONIST Work Phone: [facility] 12-01-2023 13:46-0400 Diastolic blood pressure 84 mm[Hg] Emy Rosie VISUAL SPECIALIST-SOIL CONSERVATIONIST Work Phone: [facility] 12-01-2023 13:46-0400 Heart rate 75 /min Emy Rosie VISUAL SPECIALIST-SOIL CONSERVATIONIST Work Phone: [facility] 12-01-2023 13:46-0400 Systolic blood pressure 145 mm[Hg] Emy Rosie VISUAL SPECIALIST-SOIL CONSERVATIONIST Work Phone: [facility] 07-18-2023 11:02-0400 Body height 188 cm Kathryn Klein MD Work Phone: [facility] 07-18-2023 11:02-0400 Body mass index (BMI) [Ratio] 25.27 kg/m2 Kathryn Klein MD Work Phone: [facility] 07-18-2023 11:02-0400 Body weight 89.27 kg Kathryn Klein MD Work Phone: [facility] 07-18-2023 11:02-0400 Diastolic blood pressure 84 mm[Hg] Kathryn Klein MD Work Phone: [facility] 07-18-2023 11:02-0400 Heart rate 80 /min Kathryn Klein MD Work Phone: [facility] 07-18-2023 11:02-0400 Systolic blood pressure 136 mm[Hg] Kathryn Klein MD Work Phone: [facility] 03-06-2023 10:22-0500 Body height 188 cm Isiah Newbill PA-C Work Phone: [facility] 03-06-2023 10:22-0500 Body mass index (BMI) [Ratio] 25.79 kg/m2 Isiah Newbill PA-C Work Phone: [facility] 03-06-2023 10:22-0500 Body weight 91.13 kg Isiah Newbill PA-C Work Phone: [facility] 03-06-2023 10:22-0500 Diastolic blood pressure 83 mm[Hg] Isiah Newbill PA-C Work Phone: [facility] 03-06-2023 10:22-0500 Heart rate 77 /min Isiah Newbill PA-C Work Phone: [facility] 03-06-2023 10:22-0500 Systolic blood pressure 145 mm[Hg] Isiah Newbill PA-C Work Phone: [facility] 01-25-2023 11:30-0500 Body height 187.96 cm PA Isiah Newbill Work Phone: [facility] 01-25-2023 11:27-0500 Body mass index (BMI) [Ratio] 25.5 kg/m2 PA Siiah Newbill Work Phone: [facility] 01-25-2023 11:27-0500 Body temperature 97.8 [degF] PA Isiah Newbill Work Phone: [facility] 01-25-2023 11:27-0500 Body weight 90.37 kg PA Isiah Newbill Work Phone: [facility] 01-25-2023 11:27-0500 Diastolic blood pressure 86 mm[Hg] PA Isiah Newbill Work Phone: [facility] 01-25-2023 11:27-0500 Heart rate 63 /min PA Isiah Newbill Work Phone: [facility] 01-25-2023 11:27-0500 Respiratory rate 18 /min PA Isiah Newbill Work Phone: [facility] 01-25-2023 11:27-0500 SaO2% (BldA) [Mass fraction] 98 % PA Isiah Newbill Work Phone: [facility] 01-25-2023 11:27-0500 Systolic blood pressure 150 mm[Hg] PA Isiah Newbill Work Phone: [facility] 12-14-2022 14:46-0400 Body mass index (BMI) [Ratio] 25.8 kg/m2 PA Isiah Newbill Work Phone: [facility] 12-14-2022 14:46-0400 Body temperature 97.6 [degF] PA Isiah Newbill Work Phone: [facility] 12-14-2022 14:46-0400 Body weight 91.17 kg PA Isiah Newbill Work Phone: [facility] 12-14-2022 14:46-0400 Diastolic blood pressure 82 mm[Hg] PA Isiah Newbill Work Phone: [facility] 12-14-2022 14:46-0400 Heart rate 64 /min PA Isiah Newbill Work Phone: [facility] 12-14-2022 14:46-0400 Respiratory rate 17 /min PA Isiah Newbill Work Phone: [facility] 12-14-2022 14:46-0400 SaO2% (BldA) [Mass fraction] 97 % PA Isiah Newbill Work Phone: [facility] 12-14-2022 14:46-0400 Systolic blood pressure 147 mm[Hg] PA Isiah Newbill Work Phone: [facility] 12-01-2022 07:46-0400 Body height 188 cm Johnson Zavala MD Work Phone: [facility] 12-01-2022 07:46-0400 Body weight 89.99 kg Johnson Zavala MD Work Phone: [facility] 12-01-2022 07:46-0400 Respiratory rate 20 /min Johnson Zavala MD Work Phone: [facility] 11-17-2022 15:15-0400 Body mass index (BMI) [Ratio] 25.7 kg/m2 PA Isiah Newbill Work Phone: [facility] 11-17-2022 15:15-0400 Body temperature 98.4 [degF] PA Isiah Newbill Work Phone: [facility] 11-17-2022 15:15-0400 Body weight 90.71 kg PA Isiah Newbill Work Phone: [facility] 11-17-2022 15:15-0400 Diastolic blood pressure 80 mm[Hg] PA Isiah Newbill Work Phone: [facility] 11-17-2022 15:15-0400 Heart rate 64 /min PA Isiah Newbill Work Phone: [facility] 11-17-2022 15:15-0400 Respiratory rate 18 /min PA Isiah Newbill Work Phone: [facility] 11-17-2022 15:15-0400 SaO2% (BldA) [Mass fraction] 97 % PA Isiah Newbill Work Phone: [facility] 11-17-2022 15:15-0400 Systolic blood pressure 148 mm[Hg] PA Isiah Newbill Work Phone: [facility] 10-20-2022 10:17-0400 Body height 188 cm Johnson Zavala MD Work Phone: [facility] 10-20-2022 10:17-0400 Body weight 88 kg Johnson Zavala MD Work Phone: [facility] 10-20-2022 10:17-0400 Respiratory rate 18 /min Johnson Zavala MD Work Phone: [facility] 10-19-2022 15:23-0400 Body mass index (BMI) [Ratio] 25.5 kg/m2 PA Isiah Newbill Work Phone: [facility] 10-19-2022 15:23-0400 Body temperature 98.7 [degF] PA Isiah Newbill Work Phone: [facility] 10-19-2022 15:23-0400 Body weight 90.26 kg PA Isiah Newbill Work Phone: [facility] 10-19-2022 15:23-0400 Diastolic blood pressure 92 mm[Hg] PA Isiah Newbill Work Phone: [facility] 10-19-2022 15:23-0400 Heart rate 81 /min PA Isiah Newbill Work Phone: [facility] 10-19-2022 15:23-0400 Respiratory rate 18 /min PA Isiah Newbill Work Phone: [facility] 10-19-2022 15:23-0400 SaO2% (BldA) [Mass fraction] 96 % PA Isiah Newbill Work Phone: [facility] 10-19-2022 15:23-0400 Systolic blood pressure 143 mm[Hg] PA Isiah Newbill Work Phone: [facility] 09-15-2022 10:39-0400 Body height 188 cm Johnson Zavala MD Work Phone: [facility] 09-15-2022 10:39-0400 Body weight 88.18 kg Johnson Zavala MD Work Phone: [facility] 09-15-2022 10:39-0400 Respiratory rate 20 /min Johnson Zavala MD Work Phone: [facility] 07-04-2022 15:19-0400 Body height 188 cm Isiah Newbill PA-C Work Phone: [facility] 07-04-2022 15:19-0400 Body mass index (BMI) [Ratio] 25.81 kg/m2 Isiah Newbill PA-C Work Phone: [facility] 07-04-2022 15:19-0400 Body weight 91.17 kg Isiah Newbill PA-C Work Phone: [facility] 07-04-2022 15:19-0400 Diastolic blood pressure 79 mm[Hg] Isiah Newbill PA-C Work Phone: [facility] 07-04-2022 15:19-0400 Heart rate 79 /min Isiah Newbill PA-C Work Phone: [facility] 07-04-2022 15:19-0400 Systolic blood pressure 139 mm[Hg] Isiah Newbill PA-C Work Phone: [facility] 06-21-2022 10:28-0400 Body height 187.96 cm No Primary Care Physician [facility] 06-21-2022 10:28-0400 Body mass index (BMI) [Ratio] 25.4 kg/m2 No Primary Care Physician [facility] 06-21-2022 10:28-0400 Body temperature 97.7 [degF] No Primary Care Physician [facility] 06-21-2022 10:28-0400 Body weight 89.81 kg No Primary Care Physician [facility] 06-21-2022 10:28-0400 Diastolic blood pressure 88 mm[Hg] No Primary Care Physician [facility] 06-21-2022 10:28-0400 Heart rate 64 /min No Primary Care Physician [facility] 06-21-2022 10:28-0400 Respiratory rate 18 /min No Primary Care Physician [facility] 06-21-2022 10:28-0400 SaO2% (BldA) [Mass fraction] 99 % No Primary Care Physician [facility] 06-21-2022 10:28-0400 Systolic blood pressure 172 mm[Hg] No Primary Care Physician [facility] 05-23-2022 09:56-0500 Body height 187.96 cm Isiah [employer] Work Phone: IA-Wvhlezzrzd-Yrcvy nd [address] Work Phone: 05-23-2022 09:56-0500 Body mass index (BMI) [Ratio] 25.36 kg/m2 Isiah [employer] Work Phone: RG-Ddsqdwuuez-Hllsi nd [address] Work Phone: 05-23-2022 09:56-0500 Body surface area Derived from formula 2.16 m2 Isiah [employer] Work Phone: CX-Mpzugprffu-Nahzb nd [address] Work Phone: 05-23-2022 09:56-0500 Body weight 89.59 kg Isiah Lanza [employer] Work Phone: SG-Fjckcceyac-Rlhpm nd [address] Work Phone: 05-23-2022 09:56-0500 Diastolic blood pressure 90 mm[Hg] Isiah [employer] Work Phone: GS-Nsyslvcwid-Rjpjr nd [address] Work Phone: 05-23-2022 09:56-0500 Heart rate 72 /min Isiah [employer] Work Phone: WR-Qdsvuxdror-Wfrml nd [address] Work Phone: 05-23-2022 09:56-0500 SaO2% (BldA) [Mass fraction] 96 % IsiahArchimedes [employer]to Work Phone: TX-Siztsbdcsv-Blrre nd [address] Work Phone: 05-23-2022 09:56-0500 Systolic blood pressure 144 mm[Hg] Isiah Caballero Work Phone: NP-Rhuemxshqt-Pquwo wa [address] Work Phone: 05-10-2022 14:57-0500 Body mass index (BMI) [Ratio] 25.8 kg/m2 No Primary Care Physician [facility] 05-10-2022 14:57-0500 Body temperature 98.1 [degF] No Primary Care Physician [facility] 05-10-2022 14:57-0500 Body weight 91.22 kg No Primary Care Physician [facility] 05-10-2022 14:57-0500 Diastolic blood pressure 87 mm[Hg] No Primary Care Physician [facility] 05-10-2022 14:57-0500 Heart rate 72 /min No Primary Care Physician [facility] 05-10-2022 14:57-0500 Respiratory rate 16 /min No Primary Care Physician [facility] 05-10-2022 14:57-0500 SaO2% (BldA) [Mass fraction] 97 % No Primary Care Physician [facility] 05-10-2022 14:57-0500 Systolic blood pressure 158 mm[Hg] No Primary Care Physician [facility] 04-26-2022 15:23-0500 Body height 187.96 cm [facility] Work Phone: UI-Fwaziguiaq-Izctc nd [address] Work Phone: 04-26-2022 15:23-0500 Body mass index (BMI) [Ratio] 26.19 kg/m2 Isiah [employer] [facility] Work Phone: NW-Zzkoshxvlz-Cfzsc wa [address] Work Phone: 04-26-2022 15:23-0500 Body surface area Derived from formula 2.19 m2 Isiah [employer] Work Phone: ZX-Buxwbopgyh-Vaeeo nd [address] Work Phone: 04-26-2022 15:23-0500 Body weight 92.53 kg Isiah M Newnorbertol Work Phone: MG-Wxlplbwoju-Janou nd [address] Work Phone: 04-26-2022 15:23-0500 Diastolic blood pressure 88 mm[Hg] Isiah Myla Newbill Work Phone: JO-Rfgasrvdpf-Wvdrt nd [address] Work Phone: 04-26-2022 15:23-0500 Heart rate 76 /min Isiah M Newbill Work Phone: SC-Bmairotytt-Onxjo nd [address] Work Phone: 04-26-2022 15:23-0500 SaO2% (BldA) [Mass fraction] 96 % Isiah Lanza Newn[employer]ol Work Phone: OG-Uqijivwsjr-Ixhvy nd [address] Work Phone: 04-26-2022 15:23-0500 Systolic blood pressure 144 mm[Hg] Isiah Lanza Newbill Work Phone: KM-Fzibqfbcnw-Vdfck nd [address] Work Phone: 03-29-2022 14:26-0500 Diastolic blood pressure 81 mm[Hg] No Primary Care Physician [facility] 03-29-2022 14:26-0500 Heart rate 70 /min No Primary Care Physician [facility] 03-29-2022 14:26-0500 SaO2% (BldA) [Mass fraction] 97 % No Primary Care Physician [facility] 03-29-2022 14:26-0500 Systolic blood pressure 155 mm[Hg] No Primary Care Physician [facility] 03-29-2022 13:02-0500 Body mass index (BMI) [Ratio] 26 kg/m2 No Primary Care Physician [facility] 03-29-2022 13:02-0500 Body temperature 97.6 [degF] No Primary Care Physician [facility] 03-29-2022 13:02-0500 Body weight 92.13 kg No Primary Care Physician [facility] 03-29-2022 13:02-0500 Diastolic blood pressure 87 mm[Hg] No Primary Care Physician [facility] 03-29-2022 13:02-0500 Heart rate 70 /min No Primary Care Physician [facility] 03-29-2022 13:02-0500 Respiratory rate 16 /min No Primary Care Physician [facility] 03-29-2022 13:02-0500 SaO2% (BldA) [Mass fraction] 97 % No Primary Care Physician [facility] 03-29-2022 13:02-0500 Systolic blood pressure 166 mm[Hg] No Primary Care Physician [facility] 03-17-2022 15:38-0500 Body height 187.96 cm [facility] Work Phone: [facility] Work Phone: 03-17-2022 15:38-0500 Body mass index (BMI) [Ratio] 25.49 kg/m2 Isiah Myla Newnorbertol Work Phone: [facility] Work Phone: 03-17-2022 15:38-0500 Body surface area Derived from formula 2.17 m2 Isiah Caballerol Work Phone: [facility] Work Phone: 03-17-2022 15:38-0500 Body temperature 97.7 [degF] Isiah Myla Caballerol Work Phone: [facility] Work Phone: 03-17-2022 15:38-0500 Body weight 90.04 kg Isiah Myla Newbill Work Phone: [facility] Work Phone: 03-17-2022 15:38-0500 Diastolic blood pressure 71 mm[Hg] Isiah Myla Newbill Work Phone: [facility] Work Phone: 03-17-2022 15:38-0500 Heart rate 79 /min Isiah Newbill Work Phone: [facility] Work Phone: 03-17-2022 15:38-0500 SaO2% (BldA) [Mass fraction] 96 % Isiah Harding Work Phone: [facility] Work Phone: 03-17-2022 15:38-0500 Systolic blood pressure 137 mm[Hg] Isiah aHrding Work Phone: [facility] Work Phone: 01-04-2022 14:16-0400 Body mass index (BMI) [Ratio] 25.1 kg/m2 No Primary Care Physician [facility] 01-04-2022 14:16-0400 Body weight 88.9 kg No Primary Care Physician [facility] 10-12-2021 16:18-0400 Body temperature 97.7 [degF] No Primary Care Physician [facility] 10-12-2021 16:18-0400 Respiratory rate 16 /min No Primary Care Physician [facility] 02-23-2021 18:23-0500 Body height 188 cm Sahara Rosen Other Phone: [facility] 02-23-2021 18:23-0500 Body temperature 97.16 [degF] Sahara Rosen Other Phone: [facility] 02-23-2021 18:23-0500 Diastolic blood pressure 95 mm[Hg] Sahara Rosen Other Phone: [facility] 02-23-2021 18:23-0500 Heart rate 77 /min Sahara Rosen Other Phone: [facility] 02-23-2021 18:23-0500 SaO2% (BldA) [Mass fraction] 96 % Sahara Rosen Other Phone: [facility] 02-23-2021 18:23-0500 Systolic blood pressure 160 mm[Hg] Sahara Rosen Other Phone: [facility] 11-04-2020 08:38-0400 Body height 185.42 cm Sahara Rosen Work Phone: TU-KOIOV-Ubjhqwtdb Work Phone: 11-04-2020 08:38-0400 Body mass index (BMI) [Ratio] 25.53 kg/m2 Sahara Rosen Work Phone: RU-LVCAI-Wbdfnvoio Work Phone: 11-04-2020 08:38-0400 Body surface area Derived from formula 2.12 m2 Sahara Rosen Work Phone: YT-RLTBP-Onmlwthkp Work Phone: 11-04-2020 08:38-0400 Body temperature 95.8 [degF] Sahara Rosen Work Phone: LM-BCRII-Ihrntqsvz Work Phone: 11-04-2020 08:38-0400 Body weight 87.77 kg Sahara Rosen Work Phone: XR-HLGNY-Krkreislh Work Phone: 11-04-2020 08:38-0400 Diastolic blood pressure 83 mm[Hg] Sahara Rosen Work Phone: KB-NCLXA-Iuqvzwyfh Work Phone: 11-04-2020 08:38-0400 Heart rate 71 /min Sahara Rosen Work Phone: YE-ZANBB-Nnugtmpse Work Phone: 11-04-2020 08:38-0400 Respiratory rate 18 /min Sahara Rosen Work Phone: LI-IRXZI-Jsdtjxsqy Work Phone: 11-04-2020 08:38-0400 SaO2% (BldA) [Mass fraction] 95 % Sahara Rosen Work Phone: WO-GXPDO-Hmiqazyez Work Phone: 11-04-2020 08:38-0400 Systolic blood pressure 142 mm[Hg] Sahara Basim Rosen Work Phone: BH-UWVEF-Mniltmsav Work Phone: 10-07-2020 11:55-0400 Body height 185.42 cm Sahara Basim Rosen Work Phone: FE-Tsyrshfi-Lssputa e [address] Work Phone: 10-07-2020 11:55-0400 Body mass index (BMI) [Ratio] 25.81 kg/m2 Sahara Basim Rosen Work Phone: FX-Lfxyrhbh-Nipxhxy e [address] Work Phone: 10-07-2020 11:55-0400 Body surface area Derived from formula 2.13 m2 Sahara Basim Rosen Work Phone: TP-Vxcavsoe-Kbhnxcc e [address] Work Phone: 10-07-2020 11:55-0400 Body temperature 96.6 [degF] Sahara Basim Rosen Work Phone: KJ-Jqnudgfi-Eyyvkna e [address] Work Phone: 10-07-2020 11:55-0400 Body weight 88.72 kg Sahara O Rosen Work Phone: OP-Vjmfwzfr-Zbpemem e [address] Work Phone: 10-07-2020 11:55-0400 Diastolic blood pressure 76 mm[Hg] Sahara Rosen Work Phone: FI-Cvdttkqr-Kcopfdp e [address] Work Phone: 10-07-2020 11:55-0400 Heart rate 65 /min Sahara Rosen Work Phone: BI-Ozalfdtm-Ceiiivr e [address] Work Phone: 10-07-2020 11:55-0400 Respiratory rate 16 /min Sahara Rosen Work Phone: RU-Yidahqnq-Phlvocu e [address] Work Phone: 10-07-2020 11:55-0400 SaO2% (BldA) [Mass fraction] 96 % Sahara Rosen Work Phone: GU-Zzwkskan-Rspolrt e [address] Work Phone: 10-07-2020 11:55-0400 Systolic blood pressure 136 mm[Hg] Sahara Rosen Work Phone: RD-Sgsibcqb-Mhuksfr e [address] Work Phone: Encounters Encounter Date Encounter Type Care Provider Facility Start: 01-27-2025 End: 01-27-2025 Office outpatient visit 15 minutes Ness Mckinnon MD Work Phone: [facility] Comment on above: Left rotator cuff te ar arthropathy (Primary Dx); Injury of left shoulder, initial encounter; Nontraumatic complete tear of left rotator cuff Start: 01-27-2025 End: 01-27-2025 Subsequent hospital visit by physician Vasquez [id number] X-Ray [facility] Comment on above: Injury of left shoul thea, initial encounter Start: 01-27-2025 End: 01-27-2025 ambulatory NESS Sorenson [facility] Ambulatory Start: 01-02-[address] Rafita Cooney MD [facility] Start: 01-02-2025 End: 01-02-2025 Patient encounter procedure Sally San C D STILL OPERATOR-C -[facility] Work Phone: Start: 01-02-2025 End: 01-02-2025 ambulatory Isiah IGNACIO Work Phone: -[facility] Start: 11-21-[address] Rafita Cooney MD [facility] Start: 11-21-2024 End: 11-21-2024 Patient encounter procedure Sallymagdiel San C D STILL OPERATOR-C -[facility] Work Phone: Start: 11-21-2024 End: 11-21-2024 ambulatory Isiah Harding PA Work Phone: -[facility] Start: 11-12-2024 End: 11-12-2024 Office outpatient visit 25 minutes Kaiser Leal MD Work Phone: [facility] Comment on above: Primary osteoarthrit is of both knees Start: 11-12-2024 End: 11-12-2024 Subsequent hospital visit by physician Vasquez Any100 X-Ray [facility] Comment on above: Primary osteoarthrit is of both knees Arrived Start: 11-12-2024 End: 11-12-2024 ambulatory [facility] Start: 10-30-2024 End: 10-30-2024 Subsequent hospital visit by physician [facility] Comment on above: Arrived Start: 10-30-2024 End: 10-30-2024 ambulatory [facility] Start: 10-10-[address] Rafita Cooney MD -[facility] Start: 10-10-2024 End: 10-10-2024 Patient encounter procedure Sally San NP-Delroy -[facility] Work Phone: Start: 10-10-2024 End: 10-10-2024 ambulatory Isiah Caballerol PA Work Phone: [facility] Start: 08-29-2024 End: 08-29-[address] Luis Cooney MD -[facility] Work Phone: Start: 08-29-2024 End: 08-29-2024 ambulatory Isiah Newbill PA Work Phone: [facility] Work Phone: Start: 08-29-[address] [facility] Start: 08-13-2024 End: 08-13-2024 Office outpatient visit 25 minutes Kaiser Leal MD Work Phone: [facility] Comment on above: Primary osteoarthrit is of both knees Start: 08-13-2024 End: 08-13-2024 ambulatory [facility] Amb[facility] Start: 08-13-2024 End: 08-13-2024 ambulatory [facility] Start: 08-13-2024 End: 08-13-2024 Subsequent hospital visit by physician [facility]TERNAL [facility] Comment on above: Arrived Start: 07-18-2024 End: 07-18-2024 Patient encounter procedure Sally MaharajMena C D STILL OPERATOR-C -[facility] Work Phone: Start: 07-18-2024 End: 07-18-2024 ambulatory Isiah Newnorbertol Facility:[facility] Start: 06-06-2024 End: 06-06-2024 Patient encounter procedure Sally MaharajMena C D STILL OPERATOR-C -[facility] Work Phone: Start: 06-06-2024 End: 06-06-2024 ambulatory Isiah Newlakia Facility:[facility] Start: 05-21-2024 End: 05-21-2024 Office outpatient visit 25 minutes Kaiser Leal MD Work Phone: [facility] Comment on above: Primary osteoarthrit is of both knees Start: 05-21-2024 End: 05-21-2024 Subsequent hospital visit by physician [facility]TERNAL [facility] Comment on above: Arrived Primary osteoarthrit is of both knees Start: 05-21-2024 End: 05-21-2024 ambulatory [facility] Start: 05-14-2024 End: 05-14-2024 ambulatory [facility] Ambulatory Start: 05-14-2024 End: 05-14-2024 Periodic preventive med [facility] CONSERVATIONIST Work Phone: [facility] Comment on above: Primary hypertension (Primary Dx); Primary osteoarthritis of both knees; Restless legs syndrome (RLS); Dyslipidemia; Hot flashes Start: 05-01-2024 End: 05-01-2024 Patient encounter procedure Sally MaharajMena C D STILL OPERATOR-C -[facility] Work Phone: Start: 05-01-2024 End: 05-01-2024 ambulatory Isiah Newbill Facility:[facility] Start: 03-28-2024 ambulatory Anette Wolf Facility :[facility] Start: 03-27-2024 End: 03-27-2024 ambulatory Sally Mena C D STILL OPERATOR Facility:[facility] Start: 02-14-2024 End: 02-14-2024 ambulatory Luis Cooney Facility:[facility] Start: 12-12-2023 End: 12-12-2023 Office outpatient new 45 minutes Mariposa Abdi VISUAL SPECIALIST-SOIL CONSERVATIONIST Work Phone: [facility] Comment on above: Primary osteoarthrit is of both knees (Primary Dx); Arthritis of both knees Start: 12-01-2023 End: 12-01-2023 Subsequent hospital visit by physician Vasquez X-Ray 1 [facility] Comment on above: Chronic pain of both knees Start: 12-01-2023 End: 12-01-2023 Office outpatient visit 25 minutes Emy Velez VISUAL SPECIALIST-SOIL CONSERVATIONIST Work Phone: [facility] Comment on above: Chronic pain of both knees (Primary Dx) Start: 07-18-2023 End: 07-18-2023 Office outpatient visit 15 minutes Kathryn Klein MD Work Phone: [facility] Comment on above: Sebaceous cyst (Prim lena Dx) Start: 03-06-2023 End: 03-06-2023 Office outpatient visit 25 minutes Isiah Harding PA-C Work Phone: [facility] Comment on above: Prostate cancer (CMS /HCC) (Primary Dx); Restless legs syndrome (RLS); Dyslipidemia; Primary hypertension; Prediabetes Start: 02-13-2023 End: 02-13-2023 ambulatory SANDEE Harding Work Phone: [facility] Work Phone: Start: 02-13-2023 End: 02-13-2023 Patient encounter procedure SANDEE Harding Work Phone: [facility] Work Phone: Start: 01-25-2023 Registered Recurring SANDEE robert Work Phone: [facility] Start: 01-25-2023 End: 01-25-2023 Patient encounter procedure [facility]: Start: 12-14-2022 End: 12-14-2022 Patient encounter procedure SANDEE Harding [facility]: Start: 12-01-2022 End: 12-01-2022 ambulatory JOHNSON ZAVALA Facility:[facility] Start: 12-01-2022 End: 12-01-2022 Patient encounter procedure Johnson Zavala MD Work Phone: [facility] Comment on above: Closed displaced sub trochanteric fracture of left femur with routine healing, subsequent encounter (Primary Dx) Start: 11-18-2022 Patient encounter procedure Isiah Harding [facility] Work Phone: Start: 11-17-2022 End: 11-17-2022 Patient encounter procedure SANDEE Harding [facility] Work [facility]: Start: 11-15-2022 Patient encounter procedure Isiah Harding Work Phone: [facility] [place] Work Phone: Start: 11-11-2022 Patient encounter procedure Isiah Harding Work Phone: [facility] Work Phone: Start: 11-11-2022 ambulatory Mr. Isiah Harding Facility:[id number] Start: 11-08-2022 Telephone encounter Johnson Zavala MD Work Phone: [facility] Comment on above: Appointment Start: 11-04-2022 ambulatory Mr. Isiah Harding Facility:[id number] Start: 11-04-2022 Patient encounter procedure Isiah Lanza Shaunlakia Work Phone: [facility] [place] Work Phone: Start: 10-31-2022 ambulatory Mr. Isiah Harding Facility:[id number] Start: 10-31-2022 Patient encounter procedure Isiah Harding Work Phone: [facility] [place] Work Phone: Start: 10-28-2022 ambulatory Mr. Isiah Harding Facility:[id number] Start: 10-28-2022 Patient encounter procedure Isiah Harding Work Phone: [facility] [place] Work Phone: Start: 10-24-2022 Patient encounter procedure Isiah Harding Work Phone: [facility] [place] Work Phone: Start: 10-24-2022 ambulatory Mr. Isiah Harding Facility:[id number] Start: 10-21-2022 ambulatory Mr. Isiah Harding Facility:[id number] Start: 10-21-2022 Patient encounter procedure Isiah Harding Work Phone: [facility] [place] Work Phone: Start: 10-20-2022 End: 10-20-2022 ambulatory JOHNSON ZAVALA Facility:[facility] Start: 10-20-2022 End: 10-20-2022 Patient encounter procedure Johnson Zavala MD Work Phone: [facility] Comment on above: Closed displaced sub trochanteric fracture of left femur with routine healing, subsequent encounter (Primary Dx) Start: 10-19-2022 End: 10-19-2022 Patient encounter procedure SANDEE Harding Work Phone: [facility] Work Phone: Start: 10-18-2022 Patient encounter procedure Isiah Myla Mehdi Work Phone: [facility] [place] Work Phone: Start: 10-18-2022 ambulatory Mr. Isiah Harding Facility:[id number] Start: 10-14-2022 Patient encounter procedure Isiah Harding Work Phone: [facility] Work Phone: Start: 10-14-2022 ambulatory Mr. Isiah Harding Facility:[id number] Start: 10-10-2022 ambulatory Mr. Isiah Harding Facility:[id number] Start: 10-10-2022 Patient encounter procedure Isiah Harding Work Phone: [facility] Work Phone: Start: 10-07-2022 ambulatory Mr. Isiah Harding Facility:[id number] Start: 09-15-2022 End: 09-15-2022 ambulatory JOHNSON ZAVALA Facility:[facility] Start: 09-15-2022 End: 09-15-2022 Patient encounter procedure Johnson Zavala MD Work Phone: [facility] Comment on above: Closed displaced sub trochanteric fracture of left femur with routine healing, subsequent encounter (Primary Dx) Start: 09-06-2022 Telephone encounter Johnson Zavala MD Work Phone: [facility] Comment on above: Appointment Start: 08-31-2022 Telephone encounter Mony mejia Work Phone: [facility] Comment on above: Home Care (Confirmat ion call) Start: 08-28-2022 Evaluation and manag ement of inpatient JOHNSON ZAVALA Facility:[facility] Start: 08-28-2022 Emergency department patient visit PURA BECKMAN (HIST) Facility:[facility] Start: 07-08-2022 ambulatory Mr. Isiah Harding Facility:[id number] Start: 07-06-2022 End: 07-06-2022 ambulatory No Primary Care Physician [facility] Work Phone: Start: 07-06-2022 End: 07-06-2022 Patient encounter procedure No Primary Care Physician [facility], [facility] Start: 07-04-2022 End: 07-04-2022 Office outpatient visit 25 minutes Isiah Harding PA-C Work Phone: [facility] Comment on above: Prostate cancer (CMS /HCC) (Primary Dx); Dyslipidemia; Hot flashes; Primary hypertension; Aneurysm of ascending aorta without rupture (CMS/HCC); Restless legs syndrome (RLS); Postprandial vomiting; Polyarthritis; Chronic right-sided low back pain with right-sided sciatica Start: 06-27-2022 End: 06-27-2022 ambulatory No Primary Care Physician [facility] Work Phone: Start: 06-27-2022 End: 06-27-2022 Patient encounter procedure No Primary Care [facility] Start: 06-21-2022 Registered Recurring No Primar y Care Physician [facility] Start: 06-21-2022 End: 06-21-2022 Patient encounter procedure No Primary Care Physician [facility] Start: 05-23-2022 Office outpatient vi sit 25 minutes Isiah Harding Work Phone: [id number] Work Phone: Start: 05-23-2022 ambulatory Glenn Norris Facility:[id number] Start: 05-12-2022 AUDIT Isiah Harding Work Phone: KU-Wvjndeywyk-Xanhbmd [address] Work Phone: Start: 05-10-2022 End: 05-10-2022 Patient encounter procedure No Primary Care Physician [facility] Start: 05-10-2022 Chart Update Isiah Harding Work Phone: TD-Sgqxsxlres-Kjgesox [address] Work Phone: Start: 05-09-2022 ambulatory SOIL CONSERVATIONIST, DNP GLENN NORRIS Facility:[id number] Start: 05-05-2022 AUDIT Isiah Harding Work Phone: [facility] Work Phone: Start: 05-02-2022 Chart Update Isiah Harding Work Phone: [facility] [address] Work Phone: Start: 04-28-2022 ambulatory SOIL CONSERVATIONIST, DNP GLENN NORRIS Facility:[id number] Start: 04-26-2022 Office outpatient ne w 45 minutes Isiah Harding Work Phone: NZ-Ycdhcaahkn-Qancjvc [address] Work Phone: Start: 04-26-2022 ambulatory Mr. Isiah Harding Facility:[id number] Start: 04-05-2022 Image Encounter Isiah Harding Work Phone: [facility] Work Phone: Start: 04-05-2022 ambulatory Mr. Isiah Harding Facility:[id number] Start: 03-29-2022 End: 03-29-2022 Patient encounter procedure No Primary Care Physician [facility] Start: 03-28-2022 AUDIT Isiah Harding Work Phone: [facility] Work Phone: Start: 03-22-2022 Chart Update Isiah Harding Work Phone: [facility] Work Phone: Start: 03-18-2022 HOLTER MON, Provider : DARCY DIAGNOSTIC THERAPIST[facility], Status: Pen, Time: 7:15 AM Isiah Harding Work Phone: [facility] Work Phone: Start: 03-18-2022 ambulatory Mr. Isiah Harding Facility:[id number] Start: 03-17-2022 Office outpatient ne w 45 minutes Isiah Lanza Shaunlakia Work Phone: [facility] Work Phone: Start: 03-17-2022 ambulatory Mr. Isiah [facility] Facility:[id number] Start: 06-15-2021 Image Encounter Sahara Rosen Work Phone: zz DO NOT USE - [employer] Only Start: 05-11-2021 End: 05-11-2021 Subsequent hospital visit by physician Yoan [facility] Work Phone: Radiology Comment on above: Rib pain on left zach e [R07.81] Start: 02-23-2021 End: 02-23-2021 Emergency department patient visit Juan Luis Aquino [facility] Start: 11-04-2020 Patient encounter procedure Sahara Rosen Work Phone: [id number]-Xilqmupjt Work Phone: Start: 10-07-2020 Office consultation new/estab patient 15 min Sahara Rosen Work Phone: [id number]-Vrfxlgwf 1500 Work Phone: Start: 10-07-2020 Patient encounter procedure Sahara Rosen Work Phone: BZ-Qzbloaff-Faraqbsx 1500 Work Phone: Start: 01-03-2018 Patient encounter KIMSI Facil ity:[facility] Start: 01-02-2018 Patient encounter KIMSI Facil ity:[facility] Start: 12-26-2017 End: 12-27-2017 Patient encounter procedure Margarito Conn Facility:[facility] Start: 12-22-2017 End: 12-23-2017 Patient encounter procedure Margarito Conn Facility:[facility] Start: 12-11-2017 End: 12-11-2017 Patient encounter procedure Vickey Goodson Facility:[facility] Start: 11-16-2017 End: 11-17-2017 Patient encounter procedure Vickey Goodson Facility:Vickey Goodson DO Start: 11-08-2017 End: 11-09-2017 Patient encounter procedure Elliott Jimenez Facility:[facility] Start: 10-16-2017 End: 10-17-2017 Patient encounter procedure Elliott Jimenez Facility:[facility] Start: 10-06-2017 End: 10-13-2017 Patient encounter procedure Ileana Veloz Rosen Facility:[facility] Start: 10-05-2017 End: 10-05-2017 Patient encounter procedure Elliott Jimenez Facility:[facility] Start: 10-02-2017 End: 10-03-2017 Patient encounter procedure Elliott Jimenez Facility:[facility] Start: 09-30-2017 End: 09-30-2017 Patient encounter procedure [facility] Start: 09-28-2017 End: 09-29-2017 Patient encounter procedure Kathryn Klein Facility:[facility] Start: 09-21-2017 End: 09-21-2017 Patient encounter procedure Kathryn Klein Facility:[facility] Start: 09-16-2017 End: 09-16-2017 Patient encounter procedure [facility] Start: 09-13-2017 End: 09-14-2017 Patient encounter procedure Kathryn Klein Facility:[facility] Start: 09-05-2017 End: 09-06-2017 Patient encounter procedure Kath[facility] Start: 08-08-2017 End: 08-09-2017 Patient encounter procedure Sahara Rosen Facility:[facility] Start: 08-07-2017 Ambulatory FRANCISCO J Ernandez [facility] Start: 06-30-2017 End: 07-01-2017 Patient encounter procedure Sahara Rosen Facility:[facility] Start: 06-22-2017 End: 06-23-2017 Patient encounter procedure Sahara Rosen Facility:[facility] Start: 06-22-2017 End: 06-23-2017 Patient encounter procedure Sahara Rosen Facility:[facility] Start: 06-19-2017 End: 06-20-2017 Patient encounter procedure Isiah Harding Facility:[facility] Procedures Date Procedure Procedure Detail Performing Clinician Start: 01-27-2025 Arthrocentesis aspir &/inj major jt/bursa w/o us Ness Mckinnon MD Work Phone: Start: 01-27-2025 Radex shoulder compl ete minimum 2 views Ness Mckinnon MD Work Phone: Start: 01-02-2025 Estimated creatinine clearance Isiah Caballerol PA Work Phone: Start: 01-02-2025 Prostate specific an tigen measurement Isiah Newbill PA Work Phone: Comment on above: This test was perfor med using the [employer] tPSA method. Measured values of a patient sample can vary depending on the testing procedure used. PSA values determined on patient samples by different testing procedures cannot be used interchangeably. If there is a change in PSA assays while monitoring therapy, sequential testing should be performed to confirm baseline values. Start: 11-21-2024 Assay of prostate sp ecific antigen total Isiah Newnorbertol PA Work Phone: Comment on above: This test was perfor med using the [employer] tPSA method. Measured values of a patient sample can vary depending on the testing procedure used. PSA values determined on patient samples by different testing procedures cannot be used interchangeably. If there is a change in PSA assays while monitoring therapy, sequential testing should be performed to confirm baseline values. Start: 11-21-2024 Estimated creatinine clearance Isiah Caballerol PA Work Phone: Start: 11-12-2024 Arthrocentesis aspir &/inj major jt/bursa w/us Kaiser Leal MD Work Phone: Start: 11-12-2024 US Abdomen Kaiser salazar MD Work Phone: Start: 10-30-2024 US Abdomen Kaiser salazar MD Work Phone: Start: 10-10-2024 Assay of prostate sp ecific antigen total Isiah Federicol PA Work Phone: Comment on above: This test was perfor med using the [employer] tPSA method. Measured values of a patient sample can vary depending on the testing procedure used. PSA values determined on patient samples by different testing procedures cannot be used interchangeably. If there is a change in PSA assays while monitoring therapy, sequential testing should be performed to confirm baseline values. Start: 10-10-2024 Estimated creatinine clearance Isiah Newbill PA Work Phone: Start: 08-29-2024 Assay of prostate sp ecific antigen total Isiah IGNACIO Work Phone: Comment on above: This test was perfor med using the [employer] tPSA method. Measured values of a patient sample can vary depending on the testing procedure used. PSA values determined on patient samples by different testing procedures cannot be used interchangeably. If there is a change in PSA assays while monitoring therapy, sequential testing should be performed to confirm baseline values. Start: 08-29-2024 Estimated creatinine clearance Isiah Harding SANDEE Work Phone: Start: 08-13-2024 Arthrocentesis aspir &/inj major jt/bursa w/us Kaiser Leal MD Work Phone: Start: 08-13-2024 US Abdomen Kaiser salazar MD Work Phone: Start: 07-18-2024 Prostate specific an tigen measurement Isiah IGNACIO Work Phone: Comment on above: This test was perfor med using the [employer] tPSA method. Measured values of a patient sample can vary depending on the testing procedure used. PSA values determined on patient samples by different testing procedures cannot be used interchangeably. If there is a change in PSA assays while monitoring therapy, sequential testing should be performed to confirm baseline values. Start: 05-21-2024 Arthrocentesis aspir &/inj major jt/bursa w/us Kaisre Leal MD Work Phone: Start: 05-21-2024 Abdomen Kaiser salazar MD Work Phone: Start: 05-14-2024 Lipid 1996 panel - S elizabeth or Plasma Kaiser Leal MD Work Phone: Start: 05-01-2024 Measurement of renal function Isiah Caballeroalthea IGNACIO Work Phone: Comment on above: GFR Calc Start: 12-12-2023 Arthrocentesis aspir &/inj major jt/bursa w/us Mariposa Abdi VISUAL SPECIALIST-SOIL CONSERVATIONIST Work Phone: Start: 07-18-2023 EXCISION OF BENIGN LESION Kathryn Klein MD Work Phone: Start: 03-31-2023 Lipid 1996 panel - S elizabeth or Plasma Kathryn Klein MD Work Phone: Start: 02-13-2023 CT of chest and abdomen SANDEE Harding Work Phone: Start: 12-01-2022 Radiologic examinati on femur minimum 2 views Johnson Zavala MD Work Phone: Start: 10-20-2022 Radiologic examinati on femur minimum 2 views Johnson Zavala MD Work Phone: Start: 09-15-2022 Radiologic examinati on femur minimum 2 views Johnson Zavala MD Work Phone: Start: 08-29-2022 Antibody screen MAY ZAVALA Comment on above: Order Comment: Speci men Type: BLOOD SPECIMENOrdering Facility: [facility] Address: [address] [place] [address] Performed By: #### T SCR ####[facility] BLOOD BANKCLIA [id number] [place] [address] [place] Start: 07-06-2022 CT of chest and abdomen No Primary Care Physician Start: 06-27-2022 Radionuclide whole b farhad bone study No Primary Care Physician Start: 05-09-2022 Echocardiography Isiah Harding Work Phone: Start: 03-18-2022 Lipid 1996 panel - S elizabeth or Plasma Isiah Harding PA-C Work Phone: Start: 05-11-2021 Radex ribs uni w/pos teroant ch minimum 3 views Stephen Ness APRN.SOIL CONSERVATIONIST Work Phone: Start: 12-11-2017 Colonoscopy Kathryn drummond MD Work Phone: Start: 09-28-2017 PSA screening Sahara shannon Comment on above: Result Comment: AGE- SPECIFIC REFERENCE RANGES FOR SERUM PSA REFERENCE RANGE NG/ML AGE ASIANS BLACKS WHITE 40-49 0-2 0-2 0-2.5 50-59 0-3 0-4 0-3.5 60-69 0-4 0-4.5 0-4.5 70-79 0-5 0-5.5 0-6.5 PSA INCREASES WITH AGE, RACE, AND EJACULATION WITHIN 48 HRS. [facility] VOL24,NO.2, , PG.339 Performed By: #### 2 [id number] ####[address]AD[id number] [place] [address] No history of surgery Isiah Caballeroalthea Work Phone: Plan of Treatment Date Care Activity Detail Author Start: 2036 RSV High Risk: (Elde rly (60+) or Population) (1 - 1-dose 75+ series) RSV High Risk: (Elderly (60+) or Population) (1 - 1-dose 75+ series) [facility] Start: 2036 RSV Vaccine (1 - 1-d ose 75+ series) RSV Vaccine (1 - 1-dose 75+ series) [facility] Start: 05-14-2029 Lipid panel Lipid Panel [facility] Start: 03-31-2028 Lipid panel Lipid Panel [facility] Start: 12-12-2027 Screening for malign ant neoplasm of colon [facility] Start: 03-18-2027 Lipid 1996 panel - Serum or Plasma Lipid Screening [facility] Start: 03-18-2027 Lipid panel [facility] Start: 03-18-2027 LIPID SCREEN LIPID SCREEN [facility] Start: 09-01-2025 DIABETES SCREEN DIABETES SCREEN [facility] Start: 09-01-2025 Diabetes Screening Diabetes Screenin g [facility] Start: 08-31-2025 DIABETES SCREEN DIABETES SCREEN [facility] Start: 05-15-2025 Yearly Adult Physical Yearly Adult P hysical [facility] Start: 03-06-2025 End: 03-06-2025 Patient encounter procedure 03/06/2025 1:30 PM EST Office Visit [facility] [address] [place] [address] Ness Mckinnon MD [address] [place] [address] [facility] Start: 02-12-2025 Prostate specific antigen measurement [facility] Start: 02-12-2025 End: 02-12-2025 Patient encounter procedure 02/12/2025 8:30 AM EST Office Visit [facility] [address] [place] [address] Kaiser Leal MD [address] [place] [id number] [facility] Start: 02-05-2025 End: 02-05-2025 Patient encounter procedure 02/05/2025 8:30 AM EST Office Visit [facility] [address] [place] [phone] Kaiser Leal MD [address] [place] [address] [facility] Start: 01-29-2025 End: 01-29-2025 ambulatory 01/29/2025 1:45 PM EST Evaluation [facility] [address] [place] [address] Giorgi Fragoso, PT [address] [facility] [place] [id number] [facility] Start: 01-27-2025 End: 01-27-2026 XR Shoulder - left 2 Views [facility] Service Area Work Phone: Comment on above: Expected: 01/27/2025 (Approximate), Expires: 01/27/2026 Start: 11-21-2024 [facility] Start: 11-18-2024 COVID-19 Vaccine ( season) COVID-19 Vaccine ( season) [facility] Start: 11-18-2024 Influenza vaccination Influenza Vacc ine (#1) [facility] Start: 11-12-2024 End: 11-12-2024 Patient encounter procedure 11/12/2024 8:45 AM EDT Office Visit [facility] [address] [place] [address] Kaiser Leal MD [address] [place] [address] [facility] Start: 10-30-2024 End: 10-30-2025 XR Knee - bilateral 4 Views XR knee 4+ views bilateral Imaging Routine Primary osteoarthritis of both knees Expected: 10/30/2024 (Approximate), Expires: 10/30/2025 [facility] Service Area Work Phone: Comment on above: Expected: 10/30/2024 (Approximate), Expires: 10/30/2025 Start: 10-10-2024 [facility] Start: 08-29-2024 [facility] Start: 08-13-2024 End: 08-13-2024 Patient encounter procedure 08/13/2024 9:15 AM EDT Office Visit [facility] [address] [place] [address] Kaiser Leal MD [address] [place] [id number] [facility] Start: 05-21-2024 End: 05-21-2024 Patient encounter procedure 05/21/2024 8:00 AM EST Office Visit [facility] [address] [place] [address] Kaiser Leal MD [address] [place] [address] [facility] Start: 05-16-2024 End: 05-16-2025 XR Knee - bilateral 4 Views XR knee 4+ views bilateral Imaging Routine Primary osteoarthritis of both knees Expected: 05/16/2024 (Approximate), Expires: 05/16/2025 [facility] Service Area Work Phone: Comment on above: Expected: 05/16/2024 (Approximate), Expires: 05/16/2025 Start: 05-14-2024 End: 05-14-2025 CBC W Auto Differential panel - Blood CBC and Auto Differential Lab Routine Primary hypertension Expected: 05/14/2024 (Approximate), Expires: 05/14/2025 [facility] Service Area Work Phone: Comment on above: Expected: 05/14/2024 (Approximate), Expires: 05/14/2025 Start: 05-14-2024 End: 05-14-2025 Comprehensive metabolic 2000 panel - Serum or Plasma Comprehensive Metabolic Panel Lab Routine Primary hypertension Expected: 05/14/2024 (Approximate), Expires: 05/14/2025 [facility] Work Phone: Comment on above: Expected: 05/14/2024 (Approximate), Expires: 05/14/2025 Start: 05-14-2024 End: 05-14-2025 Lipid 1996 panel - Serum or Plasma Lipid Panel Lab Routine Dyslipidemia Expected: 05/14/2024 (Approximate), Expires: 05/14/2025 [facility] Work Phone: Comment on above: Expected: 05/14/2024 (Approximate), Expires: 05/14/2025 Start: 05-14-2024 End: 05-14-2025 TSH with reflex to Free T4 if abnormal TSH with reflex to Free T4 if abnormal Lab Routine Primary hypertension Dyslipidemia Hot flashes Expected: 05/14/2024 (Approximate), Expires: 05/14/2025 [facility] Work Phone: Comment on above: Expected: 05/14/2024 (Approximate), Expires: 05/14/2025 Start: 03-31-2024 Diabetes mellitus screening Diabetes Screening [facility] Start: 03-31-2024 Hemoglobin A1c measurement Diabetes: Hemoglobin A1C [facility] Start: 03-12-2024 End: 03-12-2024 Patient encounter procedure 03/12/2024 9:00 AM EST Office Visit [facility] [address] [place] [phone] Mariposa Abdi, VISUAL SPECIALIST-SOIL CONSERVATIONIST [address] [facility], [address] [place] [phone] [facility] Start: 03-06-2024 End: 03-06-2024 Patient encounter procedure 03/06/2024 1:00 PM EST Office Visit [facility] [address] [place] [phone] Jayne Mcdonald, DO [address] [facility] [place] [address] [facility] Start: 12-01-2023 End: 11-30-2024 XR Femur - left 2 Views [facility] Work Phone: Comment on above: Expected: 12/01/2023 , Expires: 11/30/2024 Once for 1 Occurrenc es starting 12/01/2023 until 12/01/2023 Start: 12-01-2023 End: 11-30-2024 XR Knee - left 3 Views [facility] Work Phone: Comment on above: Expected: 12/01/2023 , Expires: 11/30/2024 Once for 1 Occurrenc es starting 12/01/2023 until 12/01/2023 Start: 12-01-2023 End: 11-30-2024 XR Knee - right 3 Views [facility] Service Are a Work Phone: Comment on above: Expected: 12/01/2023 , Expires: 11/30/2024 Once for 1 Occurrenc es starting 12/01/2023 until 12/01/2023 Start: 11-19-2023 COVID-19 Vaccine ( season) COVID-19 Vaccine ( season) [facility] Start: 11-19-2023 Covid-19 Vaccine () Covid-19 Vaccine () [facility] Start: 11-19-2023 Influenza vaccination Influenza Vacc ine (#1) [facility] Start: 03-18-2023 Diabetes mellitus screening Diabetes Screening [facility] Start: 03-18-2023 Hemoglobin A1c measurement Diabetes: Hemoglobin A1C [facility] Start: 03-06-2023 End: 03-06-2024 Hemoglobin A1c/Hemoglobin.total in Blood Hemoglobin A1C Lab Routine Prediabetes Expected: 03/06/2023 (Approximate), Expires: 03/06/2024 [facility] Service Area Work Phone: Comment on above: Expected: 03/06/2023 (Approximate), Expires: 03/06/2024 Start: 03-06-2023 End: 03-06-2024 TSH with reflex to Free T4 if abnormal TSH with reflex to Free T4 if abnormal Lab Routine Dyslipidemia Primary hypertension Prediabetes Expected: 03/06/2023 (Approximate), Expires: 03/06/2024 [facility] Work Phone: Comment on above: Expected: 03/06/2023 (Approximate), Expires: 03/06/2024 Start: 03-06-2023 End: 03-06-2023 Patient encounter procedure 03/06/2023 10:30 AM EST Office Visit [facility] [address] [place] [phone] Isiah Harding PA-C [address] [facility] [place] [address] [facility] Start: 12-02-2022 FUV, Provider: Glenn Norris, Status: Pen, Time: 1:00 PM FUV, Provider: Glenn Norris, Status: Pen, Time: 1:00 PM [facility] Work Phone: Start: 11-28-2022 FUV, Provider: Glenn Norris, Status: Pen, Time: 8:30 AM FUV, Provider: Glenn Norris, Status: Pen, Time: 8:30 AM [facility]-Wtwerdjzha-UgwupnMonie Pappas Work Phone: Start: 11-18-2022 COVID-19 Vaccine ( season) COVID-19 Vaccine () [facility] Start: 11-18-2022 Influenza vaccination C [facility] Start: 11-18-2022 PTRECHADUL, Provider : Ellis Clancy, Status: Pen, Time: 10:15 AM PTRECHADUL, Provider: Ellis Clancy, Status: Pen, Time: 10:15 AM [facility] Start: 11-15-2022 PTFUADULT4, Provider : Melissa Ingram, Status: Pen, Time: 4:15 PM PTFUADULT4, Provider: Melissa Ingram, Status: Pen, Time: 4:15 [facility] Work Phone: Start: 11-11-2022 PTFUADULT4, Provider : Ellis Clancy, Status: Pen, Time: 9:45 AM PTFUADULT4, Provider: Ellis Clancy, Status: Pen, Time: 9:45 AM [facility] Work Phone: Start: 11-08-2022 PTFUADULT4, Provider : Elodia Redding, Status: Pen, Time: 4:15 PM PTFUADULT4, Provider: Elodia Redding, Status: Pen, Time: 4:15 PM [facility] Work Phone: Start: 11-04-2022 PTFUADULT4, Provider : Ellis Clancy, Status: Pen, Time: 1:15 PM PTFUADULT4, Provider: Ellis Clancy, Status: Pen, Time: 1:15 PM [facility] Work Phone: Start: 10-31-2022 PTFUADULT4, Provider : Angel Chau, Status: Pen, Time: 9:15 AM PTFUADULT4, Provider: Angel Chau, Status: Pen, Time: 9:15 AM [facility] Work Phone: Start: 10-28-2022 PTFUADULT4, Provider : Ellis Clancy, Status: Pen, Time: 4:00 PM PTFUADULT4, Provider: Ellis Clancy, Status: Pen, Time: 4:00 PM [facility] Work Phone: Start: 10-24-2022 PTFUADULT4, Provider : Ellis Clancy, Status: Pen, Time: 9:15 AM PTFUADULT4, Provider: Ellis Clancy, Status: Pen, Time: 9:15 AM [facility] Work Phone: Start: 10-21-2022 PTFUADULT4, Provider : Ellis Clancy, Status: Pen, Time: 9:00 AM PTFUADULT4, Provider: Ellis Clancy, Status: Pen, Time: 9:00 AM [facility] Work Phone: Start: 10-18-2022 PTFUADULT4, Provider : Elodia Redding, Status: Pen, Time: 3:30 PM PTFUADULT4, Provider: Elodia Redding, Status: Pen, Time: 3:30 PM [facility] Work Phone: Start: 10-14-2022 PTFUADULT4, Provider : Ellis Clancy, Status: Pen, Time: 3:15 PM PTFUADULT4, Provider: Ellis Clancy, Status: Pen, Time: 3:[address] [facility] Work Phone: Start: 10-03-2022 End: 07-05-2023 Lipid 1996 panel - Serum or Plasma Lipid Panel Lab Routine Dyslipidemia Expected: 10/03/2022 (Approximate), Expires: 07/05/2023 [facility] Work Phone: Comment on above: Expected: 10/03/2022 (Approximate), Expires: 07/05/2023 Start: 09-28-2022 PROSTATE CANCER SCREENING DISCUSSION PROSTATE CANCER SCREENING DISCUSSION [facility] Start: 09-28-2022 Prostate specific antigen measurement Prostate Cancer Screening Discussion [facility] [facility] Start: 07-04-2022 End: 07-05-2023 Gallbladder [facility] Service Area Work Phone: Comment on above: Expected: 07/04/2022 , Expires: 07/05/2023 Start: 07-04-2022 End: 07-05-2023 XR Lumbar spine 4 Views XR lumbar spine complete 4+ views Imaging Routine Chronic right-sided low back pain with right-sided sciatica Expected: 07/04/2022, Expires: 07/05/2023 [facility] Work Phone: Comment on above: Expected: 07/04/2022 , Expires: 07/05/2023 Start: 07-04-2022 End: 07-05-2023 XR Thoracic spine 4 Views XR thoracic spine complete 4+ views Imaging Routine Chronic right-sided low back pain with right-sided sciatica Expected: 07/04/2022, Expires: 07/05/2023 [facility] Work Phone: Comment on above: Expected: 07/04/2022 , Expires: 07/05/2023 Start: 06-14-2022 FUV, Provider: Isiah Harding, Status: Pen, Time: 4:30 PM FUV, Provider: Isiah Harding, Status: Pen, Time: 4:30 PM RK-Vbrifwmuab-Reoaar d [address] Work Phone: Start: 05-23-2022 FUV, Provider: Glenn Norris, Status: Pen, Time: 10:00 AM FUV, Provider: Glenn Norris, Status: Pen, Time: 10:00 AM SP-Tzrnenpvtn-Zznlzp d [address] Work Phone: Start: 05-09-2022 ECHO, Provider: DARCY ALLENI ECHO 2,SMCECHO2, Status: Pen, Time: 11:30 AM ECHO, Provider: DARCY ALLENI ECHO 2,SMCECHO2, Status: Pen, Time: 11:30 AM [facility] Work Phone: Start: 04-26-2022 NPV, Provider: Glenn Norris, Status: Pen, Time: 3:15 PM NPV, Provider: Glenn Norris, Status: Pen, Time: 3:15 PM [facility] Work Phone: Start: 03-20-2022 DEPRESSION ASSESSMENT DEPRESSION ASS ESSMENT [facility] Start: 2021 RSV High Risk: (Elde rly (60+) or Population) (1 - Risk 60-74 years 1-dose series) RSV High Risk: (Elderly (60+) or Population) (1 - Risk 60-74 years 1-dose series) [facility] Start: 2021 RSV patient s and/or patients aged 60+ years (1 - 1-dose 60+ series) RSV patients and/or patients aged 60+ years (1 - 1-dose 60+ series) [facility] Start: 05-24-2021 COVID-19 Vaccine (4 - Booster for Moderna series) COVID-19 Vaccine (4 - Booster for Moderna series) [facility] Start: 05-24-2021 COVID-19 VACCINE (4 - Moderna series) COVID-19 VACCINE (4 - Moderna series) [facility] Start: 11-04-2020 Telemedicine consultation with patient VIRFUPTN, Provider: [id number], Status: Pen, Time: 8:30 AM GB-Lrhrqqtj-Nefwootx 1500 Work Phone: Start: 11-04-2020 VIRFUPROUH, Provider : Maame Curran, Status: Pen, Time: 8:30 AM VIRFUPROUH, Provider: Maame Curran, Status: Pen, Time: 8:30 AM XB-Sepfqlyq-Sbpdtlwa 1500 Work Phone: Start: 06-18-2019 End: 06-18-2019 Following clinical pathway protocol [facility] Start: 07-23-2018 [facility] Start: 06-27-2018 [facility] Start: 06-06-2018 [facility] Start: 04-26-2018 [facility] Start: 04-16-2018 [facility] Start: 03-05-2018 [facility] Start: 09-09-2011 Pneumococcal vaccination Pneumococcal Vaccine (1 of 1 - PCV) [facility] Start: 09-09-2011 RSV High Risk: (Elde rly (60+) or Population) (1 - Risk 50-74 years 1-dose series) RSV High Risk: (Elderly (60+) or Population) (1 - Risk 50-74 years 1-dose series) [facility] Start: 09-09-2011 SHINGRIX VACCINE (1 of 2) SHINGRIX VACCINE (1 of 2) [facility] Start: 09-09-2011 Zoster Vaccines (1 o f 2) Zoster Vaccines (1 of 2) [facility] Start: 11-04-2006 DTaP/Tdap/Td Vaccine s (1 - Tdap) DTaP/Tdap/Td Vaccines (1 - Tdap) [facility] Start: 11-04-2006 Urine microalbumin profile [facility] Start: 2006 COLOGUARD (FIT-DNA) COLOGUARD (FIT-D NA) [facility] Start: 2006 Colonoscopy COLONOSCOPY [facility] Start: 2006 COLORECTAL CANCER SCREENING COLORECTAL CANCER SCREENING [facility] Start: [address] COLONOGRAPHY [facility] Start: 2006 FECAL OCCULT BLOOD FECAL OCCULT BLOO D [facility] Start: 2006 Screening for malign ant neoplasm of colon [facility] Start: 2006 [facility]OS[facility] Start: 09-09-1979 ANNUAL PCP TEAM FIELD SERVICE SPECIALIST JASMYNE DISEASE VISIT ANNUAL PCP TEAM CHRONIC DISEASE VISIT [facility] Start: 09-09-1979 Anxiety Screening Anxiety Screening [facility] Start: 09-09-1979 BP CONTROLLED (<130/80) BP CONTROLLE D (<130/80) [facility] Start: 09-09-1979 Depression Screening Depression Scre ening [facility] Start: 09-09-1979 Hepatitis C screening Hepatitis C [facility] Start: 09-09-1979 HEPATITIS C SCREENING HEPATITIS C [facility] Start: 09-09-1979 HIV SCREENING HIV SCREENING [facility] Start: 09-09-1979 HIV screening HIV Screening [facility] Start: 1962 MMR Vaccines (1 of 1 - Standard series) MMR Vaccines (1 of 1 - Standard series) [facility] Start: 1961 HIV screening HIV Screening [facility] Start: 1961 Screening for malign ant neoplasm of colon [facility] Start: 1961 Yearly Adult Physical Yearly Adult P hysical [facility] CBC W Auto Different ial panel - Blood [facility] CBC W Auto Different ial panel - Blood [facility] CBC W Auto Different ial panel - Blood [facility] CBC W Auto Different ial panel - Blood [facility] CBC W Auto Different ial panel - Blood [facility] CBC W Auto Different ial panel - Blood [facility] metabo lic 1999 panel - Serum or Plasma [facility] metabo lic 1999 panel - Serum or Plasma [facility] metabo lic 1999 panel - Serum or Plasma [facility] metabo lic 1999 panel - Serum or Plasma [facility] CT Abdomen and Pelvi s W contrast IV [facility] NM Whole body Bone Views [facility] Prostate specific antigen measurement [facility] Prostate specific antigen measurement [facility] Prostate specific antigen measurement [facility] Prostate specific antigen measurement [facility] Prostate specific antigen measurement [facility] Surgical pathology study Surgical Pathology Exam Pathology and Cytology Routine Sebaceous cyst 07/18/2023 3:08 PM EDT [facility] Service Area Work Phone: End: 05-21-2024 XR Knee - bilateral 4 Views [facility] Work Phone: Comment on above: Once for 1 Occurrenc es starting 05/21/2024 until 05/21/2024 End: 11-12-2024 XR Knee - bilateral 4 Views [facility] Work Phone: Comment on above: Once for 1 Occurrenc es starting 11/12/2024 until 11/12/2024 [facility] Immunizations Immunization Date Immunization Notes Care Provider Lupillo watson 01-02-2025 Seasonal trivalent influenza vaccine, adjuvanted, preservative free Isiah Newbill PA Work Phone: [facility] 01-04-2024 influenza, injectabl e, madin christopher canine kidney, preservative free Isiah Newbill PA Work Phone: [facility] 01-04-2024 influenza virus vaccine, unspecified formulation Point Ultrasound [facility] Work Phone: 01-25-2023 influenza, injectabl e, quadrivalent, preservative free PA Isiah Newbill Work Phone: [facility] 01-25-2023 influenza virus vaccine, unspecified formulation Emy Velez VISUAL SPECIALIST-SOIL CONSERVATIONIST Work Phone: [facility] Work Phone: 03-17-2022 influenza, injectabl e, quadrivalent, preservative free; Translations: [Flulaval Quadrivalent 0.5 ML Intramuscular Suspension Prefilled Syringe] Isiah M Newbill Work Phone: [facility] Work Phone: Comment on above: Series: 03-17-2022 influenza, seasonal, injectable Isiah M Newbill Work Phone: [facility] Comment on above: Series: 03-17-2022 influenza virus vaccine, unspecified formulation Johnson Zavala MD Work Phone: [facility] 03-29-2021 Moderna COVID-19 Vaccine 100 MCG/0.5ML Intramuscular Suspension Isiah M Newbill Work Phone: [facility] Work Phone: 12-17-2020 influenza, injectabl e, quadrivalent, preservative free PA Isiah Newbill Work Phone: [facility] 12-17-2020 influenza, seasonal, injectable No Primary Care Physician [facility] 07-02-2020 Moderna COVID-19 Vaccine 100 MCG/0.5ML Intramuscular Suspension Sahara Rosen Work Phone: CC-Yksurbdq-Qqudvdu e 1500 Work Phone: 06-04-2020 Moderna COVID-19 Vaccine 100 MCG/0.5ML Intramuscular Suspension Sahara Rosen Work Phone: [facility] 06-01-2020 Covid (Moderna) No Primary C are Physician [facility] 12-24-2019 Influenza virus vaccine No P [facility] Care Physician [facility] 12-24-2019 Seasonal, quadrivale nt, recombinant, injectable influenza vaccine, preservative free Sahara Rosen Work Phone: JF-Iqxtxuzr-Dzctyiu e 1500 Work Phone: 02-18-2019 Influenza, injectabl e, Madin [place] Canine Kidney, preservative free, quadrivalent Sahara Rosen Work Phone: CV-Mffcdytr-Jujsgrf e 1500 Work Phone: 02-26-2018 influenza, injectabl e, quadrivalent, preservative free PA Isiah Harding Work Phone: [facility] 02-26-2018 influenza, seasonal, injectable No Primary Care Physician [facility] 11-03-2006 tetanus and diphther ia toxoids, not adsorbed, for adult use Mony Galvan Work Phone: [facility] Work Phone: Payers Date Payer Category Payer Managed Care (Private) [employer]AL [id number] 2018 Self-pay [id number] 2018 Unknown [id number] 2016 Unknown [id number] 2016 Unknown 1961 Unknown [id number] 2.16.840.1.957250.3.579. 2. 1961 Unknown [id number] 2.16.840.1.972441.3.579. 2. 1961 Unknown [id number] 2.16.840.1.198516.3.579. 2. 1961 Unknown [id number] 2.16.840.1.242001.3.579. 2. 1961 Unknown [id number] 2.16.840.1.676162.3.579. 2. 1961 Unknown [id number] 2.16.840.1.185349.3.579. 2. 1961 Unknown [id number] 2.16.840.1.958467.3.579. 2. 1961 Unknown [id number] 2.16.840.1.578591.3.579. 2. 1961 Unknown [id number] 2.16.840.1.592162.3.579. 2. 1961 Unknown [id number] 2.16.840.1.356851.3.579. 2. 1961 Unknown [id number] 2.16.840.1.301125.3.579. 2. 1961 Unknown [id number] 2.16.840.1.568067.3.579. 2. 1961 Unknown [id number] 2.16.840.1.388767.3.579. 2. 1961 Unknown [id number] 2.16.840.1.057772.3.579. 2. 1961 Unknown [id number] 2.16.840.1.633646.3.579. 2. 1961 Unknown [id number] 2.16.840.1.447548.3.579. 2. 1961 Unknown [id number] 2.16.840.1.892728.3.579. 2. 1961 Unknown [id number] 2.16.840.1.479021.3.579. 2. 1961 Unknown [id number] 2.16.840.1.236536.3.579. 2. 1961 Unknown [id number] 2.16.840.1.991839.3.579. 2. 1961 Unknown [id number] 2.16.840.1.270036.3.579. 2. 1961 Unknown [id number] 2.16.840.1.788626.3.579. 2. 1961 Unknown [id number] 2.16.840.1.954299.3.579. 2. 1961 Unknown [id number] 2.16.840.1.529168.3.579. 2. 1961 Unknown [id number] 2.16.840.1.961106.3.579. 2. 1961 Unknown [id number] 2.16.840.1.125213.3.579. 2.1068 1961 Unknown [id number] 2.16.840.1.496410.3.579. 2.1068 1961 Unknown [id number] 2.16.840.1.070057.3.579. 2.1068 1961 Unknown [id number] 2.16.840.1.082010.3.579. 2.1068 1961 Unknown [id number] 2.16.840.1.861204.3.579. 2.1068 1961 Unknown [id number] 2.16.840.1.166516.3.579. 2.1068 1961 Unknown [id number] 2.16.840.1.630553.3.579. 2.1068 1961 Unknown [id number] 2.16.840.1.820239.3.579. 2.1068 1961 Unknown [id number] 2.16.840.1.865142.3.579. 2.1068 1961 Unknown [id number] 2.16.840.1.209666.3.579. 2.1068 1961 Unknown [id number] 2.16.840.1.296216.3.579. 2.1068 1961 Unknown [id number] 2.16.840.1.616971.3.579. 2.1068 1961 Unknown [id number] 2.16.840.1.970532.3.579. 2.1068 1961 Unknown [id number] 2.16.840.1.270576.3.579. 2.1068 1961 Unknown [id number] 2.16.840.1.954054.3.579. 2.1068 1961 Unknown [id number] 2.16.840.1.900405.3.579. 2.1244 1961 Unknown [id number] 2.16.840.1.459444.3.579. 2.1244 1961 Unknown [id number] 2.16.840.1.371537.3.579. 2.1245 1961 Unknown [id number] 2.16.840.1.825698.3.579. 2.1244 1961 Unknown [id number] 2.16.840.1.694201.3.579. 2.1244 1961 Unknown [id number] 2.16.840.1.759682.3.579. 2.1243 1961 Unknown [id number] 2.840.1.200671.3.579. 2.1243 1961 Unknown [id number] 2.840.1.141232.3.579. 2.1243 1961 Unknown [id number] 2.840.1.629176.3.579. 2.1243 1961 Unknown [id number] 2.840.1.658996.3.579. 2.1242 1961 Unknown [id number] 2.840.1.767715.3.579. 2.1242 1961 Unknown [id number] 2.840.1.682839.3.579. 2.1243 Unknown [id number] 2.16.840.1.203975.3.579. 2.243 Unknown [id number] 2.840.1.584293.3.579. 2.243 Unknown [id number] Unknown [id number] 2.16840.1.533766.3.579. 2.462 Unknown [id number] 2.840.1.217884.3.579. 2.462 Unknown [id number] 2.16840.1.371381.3.579. 2.462 Unknown [id number] 2.16.840.1.917309.3.579. 2.462 Unknown [id number] 2.16840.1.149188.3.579. 2.462 Unknown [id number] 2.16.840.1.360988.3.579. 2.462 Unknown [id number] 2.16.840.1.258929.3.579. 2.462 Unknown [id number] 2.16.840.1.187323.3.579. 2.462 Unknown [id number] 2.16.840.1.226959.3.579. 2.462 Unknown [id number] 2.16.840.1.695979.3.579. 2.462 Unknown [id number] 2.16.840.1.209448.3.579. 2.462 Social History Date Type Detail Facility [facility] Start: 08-11-2020 End: 01-25-2023 Tobacco smoking consumption unknown [facility] Start: 07-04-2022 End: 12-01-2023 No caffeine use No caffeine use [facility] Work Phone: Start: 1960 Sex Assigned [address] Male [facility] Start: 07-04-2022 End: 01-04-2024 Tobacco smoking status NHIS Never smoked tobacco [facility] Start: 05-11-2021 End: 07-04-2022 Tobacco use and exposure Smokeless tobacco non-user [facility] Work Phone: Start: 07-04-2022 End: 01-27-2025 Alcohol intake Ex-drinker (finding) [facility] Work Phone: Start: 07-04-2022 End: 12-01-2023 Tobacco use panel [facility] Work Phone: Start: 1960 Sex Assigned At Not on file [facility] Work Phone: Start: 04-11-2021 End: 08-13-2024 Exposure to SARS-CoV-2 (event) Not sure [facility] Start: 05-11-2021 End: 08-29-2022 Alcohol intake Current drinker of alcohol (finding) [facility] Start: 08-30-2022 History SDOH Financial 4 [facility] Start: 08-30-2022 History SDOH Food Worry 1 [facility] Start: 08-30-2022 History SDOH Transport Med 2 [facility] How hard is it for y ou to pay for the very basics like food, housing, medical care, and heating Not very hard [facility] Work Phone: (I/We) worried whegolden er (my/our) food would run out before (I/we) got money to buy more. Never true [facility] Work Phone: Start: 02-12-2022 In the past 12 months, has lack of transportation kept you from medical appointments or from getting medications? No [facility] Work Phone: In the past 12 month s, was there a time when you were not able to pay the mortgage or rent on time? No [facility] Work Phone: Start: 10-21-2022 Gender identity Identifies as male gender (finding) [facility] Start: 10-21-2022 Sexual orientation Heterosexual (finding) [facility] Start: 02-12-2022 Sex Male (finding) [facility] Medical Equipment Procedure Code Equipment Code Equipment Origin al Text Equipment Identifier Dates Nail Tfn-Advance d Lateral Relief Cut 10mm 125d Green Titanium Niobium - [id number] Start: 08-29-2022 Screw 10.5mm Tfn a [address] St 100mm - [id number] Start: 08-29-2022 Functional Status Date Assessment Result Facility 01-27-2025 Functional status [facility] 01-27-2025 [facility] Work Phone: Mental Status Date Assessment Result Facility 03-08-2024 Cognitive function Awake;Alert;A ppropriate;Foll ows Commands [facility] Work Phone: 02-14-2024 Cognitive function Arousable To Voice/Nam e [facility] Work Phone: 01-04-2022 Cognitive function Voice/Name [facility] Work Phone: 03-25-2019 Cognitive function Mood Descript ion Appropriate;Calm;Relaxed [facility] Work Phone: Clinical Notes 03-18-2018 to 01-27-2025 Ness Mckinnon MD - 01/27/2025 10:30 AM EST Note Date & Type Note Facility 01-27-2025 History of Present illness Narrative Associated Order(s): L Inj/Asp: L subacromial bursa Post-Procedure Diagnose(s): Left rotator cuff tear arthropathy CHIEF COMPLAINT: Chief Complaint Patient presents with Left Shoulder - Pain, New Patient Visit Moving bibi of had, felt shoulder pain. HPI: Sae is a Right hand dominant 64 y.o. male who presents today for evaluation of Left shoulder pain. Sae is a lopez with known bilateral knee osteoarthritis and gets injections with Dr. Leal. He began having left shoulder pain on 01/24/25 when he was lifting bibi of hay at work with no specific traumatic injury. Since that time, he has had significant lateral shoulder pain and weakness. He now has trouble with any forward flexion or abduction of that shoulder. Thus far he has tried rest and anti-inflammatory medications without significant relief in his symptoms. By History: Medical History[1] Surgical History[2] Current Medications[3] Allergies[4] Review of Systems: 12 point review of systems was unremarkable or noncontributory aside from what was mentioned in the HPI Social History: Tobacco use: He reports that he has never smoked. He has never used smokeless tobacco. Alcohol use: He reports that he does not currently use alcohol. Family History[5] PHYSICAL EXAM: General: Alert, no acute distress HEENT: Normocephalic, no scleral icterus Psych: Normal mood/affect Cardiovascular: Regular rate Pulmonary: Regular respiratory rate, nonlabored on room air Lymph: No lymphedema of the associated extremity Skin: No open wounds, no rashes, normal turgor of the associated extremity Abdomen: Nondistended Musculoskeletal: Left Shoulder Exam: -No gross deformity -Tender to palpation at the AC joint -Nontender to palpation bicipital groove - Active ROM (R/L): - Forward elevation 170/50 , able to passively forward flex left shoulder to 170 - ER in adduction to 30/30 - IR to L3/L3 - Positive Neer and Colindres impingement - Negative cross body adduction - Rotator cuff strength: - Positive arm drop test - Empty Can 3/5 with pain - ER in adduction 4/5 with pain - Subscapularis Testing: Negative Bear Hug, Negative Lift-Off, Negative Belly Press - Negative Speeds test, Positive [place]'s test - Neurovascularly intact Neck examination demonstrates normal flexion and extension with no pain, nontender to palpation along the cervical spine, normal rotation to the left and right with no pain, Negative Spurling's IMAGING: I personally reviewed and interpreted 01/27/25 Left shoulder X-Ray which demonstrates: Grashey, Zanca, scapular Y, and axillary lateral views of the shoulder. AP Grashey shows moderate narrowing of the glenohumeral joint space with no obvious acute bony abnormalities but with inferior humeral head osteophyte and mild superior humeral head migration. The AC joint is anatomically aligned with moderate arthritic changes. On the [place] view, the humeral head is concentrically reduced in the glenoid IMPRESSION: Left rotator cuff tear arthropathy PLAN: We discussed Sae's imaging and diagnosis in detail including various treatment options. We discussed the general treatment for shoulder rotator cuff tear arthropathy begins with conservative treatment in the form of activity modification, anti-inflammatory medications both oral and topical, physical therapy, and consideration for steroid injections. We discussed avoidance of high stress type of activities. I recommended trial of topical diclofenac gel as well as oral anti-inflammatory medications and we discussed that I would be happy to provide a prescription for meloxicam. We also discussed the use of corticosteroid injections including the risks and benefits. Finally, we discussed that if conservative treatment fails to improve Sae's symptoms, the operative intervention would likely be in the form of a reverse total shoulder arthroplasty. After thorough discussion of risks, benefits, and alternatives to all treatment options, Sae and I collectively agreed on the following plan: Activity modification and avoidance of high-stress activity OTC PO NSAIDs as needed for pain Referral for physical therapy to work on shoulder range of motion, scapular and rotator cuff strengthening Left subacromial corticosteroid injection provided today Follow-up in 6 to 8 weeks for repeat evaluation and further management as needed L Inj/Asp: L subacromial bursa on 01/27/2025 10:56 AM Indications: pain Details: 22 G needle Medications: 40 mg triamcinolone acetonide 40 mg/mL; 4 mL ropivacaine 5 mg/mL (0.5 %); 2 mL lidocaine 20 mg/mL (2 %) Outcome: tolerated well, no immediate complications Procedure, treatment alternatives, risks and benefits explained, specific risks discussed. Consent was given by the patient. Ness Mckinnon MD Orthopaedic Sports and Shoulder Surgeon [facility] This note was created with the aid of voice recognition dictation software. [1] Past Medical History: Diagnosis Date Hypertension Prostate cancer (Multi) [2] Past Surgical History: Procedure Laterality Date COLONOSCOPY 12/11/2017 DR GOODSON OTHER SURGICAL HISTORY 03/17/2022 No history of surgery [3] Current Outpatient Medications Medication Sig Dispense Refill calcium carbonate-vitamin D3 600 mg-5 mcg (200 unit) tablet Take 1 tablet by mouth once daily. denosumab (Xgeva) 120 mg/1.7 mL (70 mg/mL) injection Inject 1.7 mL (120 mg) under the skin every 3 months. diclofenac sodium (Voltaren) 1 % gel Apply 4.5 inches (4 g) topically 4 times a day. 100 g 1 enzalutamide (Xtandi) 80 mg tablet Take two (2) tablets (160mg total) by mouth once daily. 60 tablet 12 enzalutamide (Xtandi) 80 mg tablet Take two (2) tablets (160mg total) by mouth once daily. 60 tablet 12 leuprolide, 3 month, 22.5 mg injection Inject under the skin every 12 weeks. 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 90 tablet 3 meloxicam (Mobic) 15 mg tablet Take 1 tablet (15 mg) by mouth once daily. 90 tablet 3 rOPINIRole (Requip) 0.25 mg tablet Take 1 tablet (0.25 mg) by mouth 3 times a day. 270 tablet 3 rosuvastatin (Crestor) 10 mg tablet Take 1 tablet (10 mg) by mouth once daily at bedtime. 90 tablet 3 venlafaxine (Effexor) 37.5 mg tablet Take 1 tablet (37.5 MG) orally daily 90 tablet 3 No current facility-administered medications for this visit. [4] No Known Allergies [5] Family History Problem Relation Name Age of Onset Hypertension Mother Other (Cerebrovascular Accident) Father Hypertension Father Prostate cancer Father Hypertension Sister Breast cancer Sister Hypertension Brother Prostate cancer Brother Breast cancer Paternal Grandmother Colon cancer Paternal Grandfather documented in this encounter [facility] Work Phone: 01-02-2025 Progress note [facility] 11-21-2024 Progress note [facility] 11-21-2024 Progress note Note Date/Time November 21, 2024 1:56pm [facility] [address] [place] [id number] OFFICE VISIT Date of Service: 11/21/24 1312 MR#: [id number] Acct: [id number] Name: SAE KAPADIA Rep #: [id number] : 1960 From: Sally Santos ch C D STILL OPERATOR C D STILL OPERATOR-C Age/Sex: 64/M Location: [facility] [facility] Status: Signed HPI Subjective Date of Service 11/21/24 Chief Complaint Prostate cancer on treatment History of Present Illness Patient is a 64-year-old gentleman, 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 revealed marked retroperitoneal, periaortic, and left iliac adenopathy with the largest lymph node mass measuring 5.6 cm in the lower periaortic/common iliac chain, together with a CT scan of the chest on September 21 showed no visceral metastatic disease. September 21, 2017:?A CT-guided biopsy of retroperitoneal lymph nodes? revealed metastatic adenocarcinoma PSA positive consistent with metastatic prostate cancer.??Cancer is microsatellite stable?([facility] March 2020) October 2020 genetic testing at for a 47 gene panel showed no known pathogenicmutation, was a variant of uncertain significance. September 29, 2017:? PSA >154. September 28, 2017:?A bone scan? showed changes within the vertebral spine that were thought degenerative and inflammatory. He received a Lupron injection in September 2017 under the care of his urologist Dr. Jimenez, with Casodex cover in the first month then referred for a second opinion at where he was seen again by urologist Dr. Conn who informed him that his disease was non-operable, advised continued androgen deprivation therapy and consultation with medical oncology.? He was also seen by radiation oncology at [facility] by Dr. Murray who advised medical management. December 26, 2017:?A follow-up? bone scan? showed interval progressive changes scattered throughout the axial and proximal appendicular skeleton in addition toseveral small new foci highly suspicious for progressive osseous metastatic disease. December 22, 2017:?PSA? down to 20 and his testosterone level was consistent with a castrate level of 8. February 19, 2018:?Patient is transferring care to [facility] for proximity to his residence, PSA? further down to 13. July 31, 2018: Bone scan: IMPRESSION: 1.? The increased radiopharmaceutical concentration identified in the third thoracic vertebra may be further investigated with plain film radiography in the setting of known prostate carcinoma if not previously obtained. ? 2.? Degenerative arthritis remains apparent in the thoracic and lumbar spine, sacrum, left hip, bilateral shoulders elbows bilaterally, left wrist, right-left knees and right ankle articulation. ? 3.? Overall compared to the previous whole body bone scintigraphy study dated 12/26/2017, the persistent increase in tracer uptake noted in the third thoracic vertebra warrants further evaluation with plain film radiography is not previously obtained. Otherwise, there is no significant interval change compared to the prior examination. February 2019 bone scan: IMPRESSION: 1.? The increase in radiopharmaceutical concentration identified in the cervical thoracic and lumbar spine, both shoulders, sacrum, wrist and elbow articulations bilaterally, right and left hips, both knees is commensurate with degenerative arthritis. ?2.? Overall compared to the previous whole body bone scintigraphy study dated 07/31/2018, there is no significant interval change.? There is no present typical scintigraphic evidence of diffuse axial skeletal metastatic disease. October 17, 2019 bone scan: IMPRESSION: 1. The increase in radiopharmaceutical distribution currently defined in the cervical, thoracic and lumbar spine, sacrum, bilateral shoulders, left elbow, right-left knees, the right ankle and left wrist are commensurate with degenerative arthritis. 2.? Overall compared to the previous whole body bone scintigraphy study dated 03/19/2019, there is no significant interval change.? No current typical scintigraphic evidence of diffuse axial skeletal metastatic disease is demonstrated on the present examination. March 18, 2020 bone scan: IMPRESSION: 1.? The increase in tracer distribution defined in the cervical, thoracic and lumbar spine, sacrum, right and left shoulders, knees bilaterally, both wrist articulations is commensurate with degenerative arthritis. 2.? Overall compared to the previous whole body bone scintigraphy study dated 10/17/2019, there is no significant interval change.? No current typical scintigraphic evidence of skeletal metastatic disease is demonstrated on the current examination. April 20, 2020 CT abdomen and pelvis: Comparison is made with prior outside examination dated 09/13/2017. Since prior examination, there has been marked improvement in the retroperitoneal and pelvic lymphadenopathy. April 20, 2020 chest x-ray: IMPRESSION: No demonstrated acute cardiopulmonary process. ? August 05, 2020 CT chest abdomen and pelvis: IMPRESSION: No acute cardiopulmonary findings.? Increase mild fibrotic bibasilar changes.? Stable 4 mm nodule of the right upper lobe. Stable subcentimeter/shotty periaortic lymph nodes and stable adenopathy of the left iliac chain as described above. New faintly osteoblastic 6 mm lesion of T 13, 13 rib bearing vertebral bodies.? Stable other osseous sclerotic lesions in the sternum, S1, right superior and inferior pubic rami.? These are very small and dense and could be bone islands rather than metastatic disease. ?No additional acute abdominal or pelvic findings. August 07, 2020 bone scan: IMPRESSION: 1.? The increase in tracer distribution defined in the bilateral shoulders, right and left elbows, wrists bilaterally, bilateral hands, cervical, thoracic and lumbar spine and sacrum, both knee articulations and right ankle is most consistent with degenerative arthritis. ?2.? Overall compared to the previous whole body bone scintigraphy study dated 03/18/2020, there is no significant interval change.? No current typical scintigraphic evidence of diffuse axial skeletal metastatic disease is noted on the current examination. June 27, 2022 bone scan: IMPRESSION: 1. The multifocal increase in radiopharmaceutical concentration defined in the bilateral shoulder, elbow and wrist articulations, the knees bilaterally, the cervical, thoracic and lumbar spine, the sacroiliac joints bilaterally consistent with degenerative arthritis. Correlation with plain film radiography is recommended in the thoracic, lumbar spine and pelvis. ? 2. Enhanced tracer distribution defined in the left anterior fourth rib the costochondral junction is most consistent with trauma-fracture. ? 3. Overall compared to the previous whole body bone scintigraphy study dated 08/07/2020, there is continued demonstration of diffuse degenerative changes with newly identified uptake noted in the thoracic and lumbar spine as well as pelvis warranting further evaluation with plain film x-ray. July 06, 2022 CT chest abdomen and pelvis: IMPRESSION: Essentially stable examination except for interval decrease in size of the lymph nodes seen in the left iliac chain. February 13, 2023 CT chest abdomen and pelvis: IMPRESSION: 1. Nodular density on the right side of the prostate bed could be prostate tissue. Correlation with PET scan is recommended. 2. Otherwise no significant change since the previous exam. 3. No evidence of new metastatic disease. February 20, 2023 bone scan: IMPRESSION: 1. The increase in tracer uptake noted in the left anterior chest wall consistent with trauma fracture. 2. Newly identified increased uptake noted in the proximal left femoral metaphysis, diaphysis and distal left femoral diaphysis may represent trauma-fracture or orthopedic hardware placement. Further evaluation with plain film radiography is recommended. 3. Degenerative changes are defined in the bilateral knee and shoulder articulations, the cervical, thoracic and lumbar spine, the sacrum and left midfoot. Treatment and response summary: - Lupron October 16 2017 - Taxotere prednisone March 26, 2018-June 2018 (6 cycles) MI - Zytiga prednisone July 2020-February 2023 MI then progression. - Xtandi February 2023 MI. -Zometa 2018- Interval History The patient is presenting to clinic for a planned 6 week follow up. Reports goodadherence and good tolerance to Xtandi. Typically takes at 8904-5172. Hot flashes are minimal, primarily at HS. Remains on Effexor. No daytime somnolence. Denies headache, dizziness, CP, palpitations, cough, SOB, abd pain, changes in his bowel habits, swelling in his extremities. COUNT INCLUDES THE [facility] Medical History Hot flash in male Bone metastases Regional lymph node metastasis present Prostate cancer Prostate cancer Surgical History History of surgery on lower extremity Family History Father Prostate cancer Sister Breast cancer Grandmother Breast cancer Grandfather Colon cancer Social History Smoking Status: Never smoker alcohol intake: current alcohol intake frequency: holidays/special occasions only ROS ROS Narrative Negative except as documented in the interval HPI Intake Vital Signs 10/10/24 11:29 11/21/24 13:15 Height 6 ft 2 in 6 ft 2 in Weight: 204 lb 7 oz 205 lb 7 oz BMI 26.2 26.4 BP 146/92 H 147/78 H Blood Pressure Location Lt brachial Rt brachial Position Sitting Sitting Respiration 18 18 Pulse 63 69 Pulse Source Monitor Monitor Temp 98.1 F 98.3 F Temperature Source Temporal Artery Temporal Artery Pulse Oximetry (%) 97 96 Oxygen Delivery Method room air room air Intake Accompanied by: Self Is patient in pain?: No Allergies No Known Allergies Allergy (Verified 11/21/24 13:15) Medications ?Medication ?Instructions ?Recorded ?Confirmed ?Type calcium 600 mg (as 1 ea PO DAILY 02/19/1811/21 History carbonate)-vitamin D3 5 mcg (200 unit) tablet (Calcium 600 + D(3)) ropinirole 0.25 mg tablet 0.25 mg PO QHS 03/29/2207/12 History venlafaxine 37.5 mg tablet 37.5 mg PO DAILY 90 days #9 0 tabs 12/13/23 11/21/24 Rx meloxicam 7.5 mg tablet 7.5 mg PO QDAY 01/04/2407/12 History leuprolide (3 month) 22.5 mg (3 22.5 mg subcut Q12W #4 ea 02/12/24 11/21/24 Rx month) subcutaneous syringe (Piper) losartan 50 mg tablet 50 mg PO QDAY 03/28/2411/21 History rosuvastatin 10 mg tablet 10 mg PO QDAY 03/28/2411/21 History enzalutamide 80 mg tablet (Xtandi) 160 mg (2 x 80 mg) PO DAILY 30 04/08/24 11/21/24 Rx days #60 tabs Central Venous Access Central Venous Access: No Laboratory Tests 11/21/24 12:44 WBC 5.4 Hgb 13.6 Hct 38.5 L Plt Count 224 Absolute Neuts (auto) 2.4 Sodium 137 Potassium 4.1 Chloride 104 Carbon Dioxide 23.0 BUN 23 H Creatinine 0.89 Glucose 130 H Calcium 9.1 Total Bilirubin 0.33 AST 21 ALT 16 Alkaline Phosphatase 50 Total PSA < 0.02 Exam Physical Exam Narrative ECOG 0 Const alert, oriented x3 and no apparent distress General Appearance: comfortable and well kempt HEENT normocephalic Head and Scalp: normal to inspection Mouth: oral and palatal mucosa normal Eyes conjunctivae normal and no scleral icterus General Eye: normal appearance of both eyes Neck no lymphadenopathy, supple and no JVD Lymph Lymphatic: no lymphadenopathy noted Chest Chest: symmetrical chest wall rise Resp normal respiratory effort and clear to auscultation bilaterally Cardio regular rate and regular rhythm Jugular Venous Distention: Negative for JVD GI soft to palpation, non-tender, non-distended and hepatosplenomegaly no CVA tenderness Back/Spine no thoracic nor lumbar tenderness Extremity no clubbing, cyanosis or edema Skin no rashes or lesions noted Neuro oriented x3, CN's II-XII intact bilaterally, moves all extremities and no focal motor deficits Speech: speech normal Gait (Neuro): normal gait Psych mental status grossly normal and affect normal Coding Level of Care Code Off vis,est,level 4 Exam Problem Focused Diagnoses Prostate cancer C61 Regional lymph node metastasis present C77.9 Bone metastases C79.51 Hot flash in male R23.2 Assessment and Plan Assessment and Plan (1) Prostate cancer: Status: Chronic (2) Regional lymph node metastasis present: Status: Chronic (3) Bone metastases: Status: Chronic (4) Hot flash in male: Status: Chronic Orders: Orders CBC W/Diff, Automated 6 Weeks C61 - Malignant neoplasm of prostate, C77.9 - Secondary and unspecified malignant neoplasm of lymph node, unspecified, C79.51 - Secondary malignant neoplasm of bone Comprehensive Metabolic Profil 6 Weeks C61 - Malignant neoplasm of prostate, C77.9 - Secondary and unspecified malignant neoplasm of lymph node, unspecified,C79.51 - Secondary malignant neoplasm of bone PSA,Total- Diagnostic 6 Weeks C61 - Malignant neoplasm of prostate, C77.9 - Secondary and unspecified malignant neoplasm of lymph node, unspecified, C79.51 - Secondary malignant neoplasm of bone Plan 64-year-old gentleman presented in 2018 with metastatic prostate cancer, stage IV (regional and nonregional lymph nodes and bones see HPI for details and course).? Diagnosis confirmed by a biopsy of retroperitoneal lymph nodes in September2017.??Cancer is microsatellite stable. October 2020 genetic testing at for a 47 gene panel showed no known pathogenicmutation, with a variant of uncertain significance. He , under the care of his urologist, received a dose of Lupron Daypro (6 months) in October 16 2017 with a significant drop of his PSA from > 154 to 13 onDecember 2017 and with a castrate level testosterone level confirmed December2017. He has had progressive changes consistent with bony metastatic disease between his initial presentation in September 2 December,.? These changes do not necessarily represent a castrate resistant disease but more likely the lag in response to LHRH agonist therapy.? Nonetheless he has widely spread bony metastatic disease (high volume), and therefore when he transferred his care to [facility], he went on and received 6 cycles of systemic chemotherapy with Taxotere prednisone March through June 2018 without excessive toxicities and there was further drop in his PSA. By late 2019 he appears to have an asymptomatic PSA relapse with no measurable disease.? His testosterone is at castrate level (last checked June 2020) July 2020 bone scan remained stable, however a CAT scan of the chest abdomen and pelvis shows a new subtle bone lesion at the lower thoracic spine (interestinglypatient has 13 rib bearing vertebral bodies). Nonetheless he remains asymptomatic. Was started on combined antiandrogen therapy with addition of Zytiga?prednisone July 2020 and is showing a clinical and PSA response. A Steady upward trend in PSA noted July 2022, although imaging by CAT scan and bone scan remained stable signifying an evolving resistance to Zytiga. Patient switched to Xtandi as of February 2023 and is showing another response to combined androgen deprivation therapy. Plan: 1.? Continue with androgen deprivation therapy (ADT) with Lupron Depot long-termand Xtandi. 2.? Follow-up with H&P and? PSA in 6 weeks. 3. Bone supportive therapy with Zometa? every 12 weeks. Will receive Zometa today. 4.? Continue with Effexor for symptomatic relief of hot flashes secondary to ADT. 11/21/24 1356 <Electronically signed by Sally santiago NP C D STILL OPERATOR-C> Date _ Sally San NP, NP-C Cosigner Signature: Date (if applicable) CC: ~ [facility] Work Phone: 1([phone]) 872-638208-26-2025 Evaluation + Plan note* Assessment & Plan Note - Kaiser Leal MD - 11/12/2024 8:59 AM EDTAssociated Problem(s): Primary osteoarthritis of both knees Assessment: Bilateral osteoarthritis of the knees. Patient states he is doing well but he has noticed that the cortisone injections are starting to diminish in their effectiveness. Plan: Under ultrasound control 40 mg of Kenalog was injected into each knee. He had an excellent lidocaine suppression test. Follow-up in 12 weeks for reevaluation. [facility] Work Phone: 1(195) 524-922308-26-2025 Miscellaneous Notes* Assessment & Plan Note - Kaiser Leal MD - 11/12/2024 8:59 AM EDTAssociated Problem(s): Primary osteoarthritis of both knees Assessment: Bilateral osteoarthritis of the knees. Patient states he is doing well but he has noticed that the cortisone injections are starting to diminish in their effectiveness. Plan: Under ultrasound control 40 mg of Kenalog was injected into each knee. He had an excellent lidocaine suppression test. Follow-up in 12 weeks for reevaluation. [facility] Work Phone: [phone]) 986-152808-26-2025 History of Present illness Narrative* Kaiser Leal MD - 11/12/2024 8:45 AM EDTAssociated Order(s): L Inj/Asp: bilateral knee Post-Procedure Diagnose(s): Primary osteoarthritis of both knees Assessment/Plan Encounter Diagnoses: Primary osteoarthritis of both knees Primary osteoarthritis of both knees Assessment: Bilateral osteoarthritis of the knees. Patient states he is doing well but he has noticed that the cortisone injections are starting to diminish in their effectiveness. Plan: Under ultrasound control 40 mg of Kenalog was injected into each knee. He had an excellent lidocaine suppression test. Follow-up in 12 weeks for reevaluation. Subjective Patient ID: Sae Kapadia is a 64 y.o. male. Chief Complaint: Follow-up and Pain of the Right Knee and Follow-up and Pain of the Left Knee Last Surgery: No surgery found Last Surgery Date: No surgery found HPI 63-year-old male who comes in today for evaluation of his bilateral osteoarthritic knees mild. 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 His pain level is starting to wax. He wishes to consider repeatcortisone injections. 08/13/2024-comes in today stating that his knees are just starting to aggravate him again. He has anupcoming wedding. He would like to get a booster cortisone injection. 11/12/2024,-comes in today stating that the injections have worn down. He is a lopez and he is coming into a busy season. He is hopeful to get injections. OBJECTIVE: ORTHO EXAM Right knee: Skin healthy and intact No gross swelling or ecchymosis Alignment: Varus Effusion: Minimal ROM: 0 degrees Extension 110 degrees Flexion Minimal crepitance with range of motion No pain with internal rotation of the hip Tenderness to palpation: Medial joint line 10 degrees laxity to valgus stress Minimal laxity to varus stress Negative Sharmaine s test Negative posterior drawer test Minimal pain with Raffy s test Neurovascular exam normal distally 2+ DP pulse and good cap refill Left knee: Skin healthy and intact No gross swelling or ecchymosis Alignment: Varus Effusion: Mild he has a moderate Redding's cyst ROM: 0 degrees Extension 120 degrees Flexion Minimal crepitance with range of motion No pain with internal rotation of the hip Tenderness to palpation: Medial joint line 10 degrees laxity to valgus stress Minimal laxity to varus stress Negative Sharmaine s test Negative posterior drawer test Minimal pain with Raffy s test Neurovascular exam normal distally 2+ DP pulse and good cap refill IMAGE RESULTS: Point of Care Ultrasound These images are not reportable by radiology and will not be interpreted by Radiologists. X-rays show tricompartmental arthritis mainly in the medial compartment. On the left knee he has a intramedullary neel from previous trauma. No signs of loosening are noted. ULTRASOUND L Inj/Asp: bilateral knee on 11/12/2024 9:00 AM Details: ultrasound-guided superolateral approach Medications (Right): 40 mg triamcinolone acetonide 40 mg/mL Medications (Left): 40 mg triamcinolone acetonide 40 mg/mL Procedure, treatment alternatives, risks and benefits explained, specific risks discussed. Immediately prior to procedure a time out was called to verify the correct patient, procedure, equipment, service support representative and site/side marked as required. Patient was prepped and draped in the usual sterile fashion. Orders Placed This Encounter XR knee 4+ views bilateral Point of Care Ultrasound Point of Care Ultrasound [facility] Work Phone: 1(883) 336-424407-24-2025 Evaluation note* Diagnosis Onset Date Resolution Status Admit Date Bone metastases chronic September 10:41am Hot flash in male chronic October 102024 10:41am Prostate cancer chronic September 10:41am Regional lymph node metastasis present October 10 10:41am Bone metastases chronic November 21, 2024 12:36pm Hot flash in male chronic 2024 12:36pm Prostate cancer chronic November 21, 2024 12:36pm Regional lymph node metastasis present november 12:36pm Bone metastases chronic December 182024 1:36pm Hot flash in male chronic January 02, 2025 1:36pm Prostate cancer chronic December 182024 1:36pm Regional lymph node metastasis present chronic January 02, 2025 1:36pm Bone metastases chronic December 182024 1:45pm Hot flash in male chronic January 02, 2025 1:45pm Prostate cancer chronic December 182024 1:45pm Regional lymph node metastasis present chronic January 02, 2025 1:45pm Educational circumstance resolved January 02, 2025 1:45pm Neck pain resolved January 02, 2025 1:45pm [facility] Work Phone: [phone]) [phone] Evaluation note* Diagnosis Onset Date Resolution Status Admit Date Bone metastases chronic August 10:48am Hot flash in male chronic August 292024 10:48am Prostate cancer chronic August 10:48am Regional lymph node metastasis present chronic August 29 10:48am Bone metastases chronic September 10:41am Hot flash in male chronic October 102024 10:41am Prostate cancer chronic September 10:41am Regional lymph node metastasis present chronic October 10 10:41am Bone metastases chronic November 21, 2024 12:36pm Hot flash in male chronic Septemb er 2024 12:36pm Prostate cancer chronic November 21, 2024 12:36pm Regional lymph node metastasis present chronic November 12:36pm Bone metastases chronic November 21, 2024 12:45pm Hot flash in male chronic Septemb er 2024 12:45pm Prostate cancer chronic November 21, 2024 12:45pm Regional lymph node metastasis present chronic November 12:45pm Educational circumstance resolved November 21, 2024 12:45pm Neck pain resolved November 21, 2024 12:45pm [facility] Work Phone: 1([phone]) 124-245906-12-2025 [facility] [address] [place] [id number] OFFICE VISIT Date of Service: 08/29/24 1129 MR#: [id number] Acct: [id number] Name: STEFFISAE FRACISCO Rep #: [id number] : 1960 From: Luis lester MD Age/Sex: 63/M Location: [facility] Status: Signed HPI Subjective Date of Service 08/29/24 Chief Complaint Prostate cancer on treatment History of Present Illness 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 revealed marked retroperitoneal, periaortic, and left iliac adenopathy with the largest lymph node mass measuring 5.6 cm in the lower periaortic/common iliac chain, together with a CT scan of the chest on September 21 showed no visceral metastatic disease. September 21, 2017:?A CT-guided biopsy of retroperitoneal lymph nodes? revealed metastatic adenocarcinomaPSA positive consistent with metastatic prostate cancer.??Cancer is microsatellite stable?( [facility] March 2020) October 2020 genetic testing at for a 47 gene panel showed no known pathogenicmutation, was a variant of uncertain significance. September 29, 2017:? PSA >154. September 28, 2017:?A bone scan? showed changes within the vertebral spine that were thought degenerative and inflammatory. He received a Lupron injection in September 2017 under the care of his urologist Dr. Jimenez, with Casodex cover in the first month then referred for a second opinion at where he was seen again by urologist Dr. Conn who informed him that his disease was non-operable, advised continued androgen deprivation therapy and consultation with medical oncology.? He was also seen by radiation oncology at [facility] by Dr. Murray who advised medical management. December 26, 2017:?A follow-up? bone scan? showed interval progressive changes scattered throughout the axial and proximal appendicular skeleton in addition toseveral small new foci highly suspicious for progressive osseous metastatic disease. December 22, 2017:?PSA? down to 20 and his testosterone level was consistent with a castrate level of8. February 19, 2018:?Patient is transferring care to [facility] for proximity to his residence, PSA? further down to 13. July 31, 2018: Bone scan: IMPRESSION: 1.? The increased radiopharmaceutical concentration identified in the third thoracic vertebra may be further investigated with plain film radiography in the setting of known prostate carcinoma if not previously obtained. ? 2.? Degenerative arthritis remains apparent in the thoracic and lumbar spine, sacrum, left hip, bilateral shoulders elbows bilaterally, left wrist, right-left knees and right ankle articulation. ? 3.? Overall compared to the previous whole body bone scintigraphy study dated 12/26/2017, the persistent increase in tracer uptake noted in the third thoracic vertebra warrants further evaluation with plain film radiography is not previously obtained. Otherwise, there is no significant interval change compared to the prior examination. February 2019 bone scan: IMPRESSION: 1.? The increase in radiopharmaceutical concentration identified in the cervical thoracic and lumbar spine, both shoulders, sacrum, wrist and elbow articulations bilaterally, right and left hips, both knees is commensurate with degenerative arthritis. ?2.? Overall compared to the previous whole body bone scintigraphy study dated 07/31/2018, there is no significant interval change.? There is no present typical scintigraphic evidence of diffuse axial skeletal metastatic disease. October 17, 2019 bone scan: IMPRESSION: 1. The increase in radiopharmaceutical distribution currently defined in the cervical, thoracic and lumbar spine, sacrum, bilateral shoulders, left elbow, right-left knees, the right ankle and left wrist are commensurate with degenerative arthritis. 2.? Overall compared to the previous whole body bone scintigraphy study dated 03/19/2019, there is no significant interval change.? No current typical scintigraphic evidence of diffuse axial skeletal metastatic disease is demonstrated on the present examination. March 18, 2020 bone scan: IMPRESSION: 1.? The increase in tracer distribution defined in the cervical, thoracic and lumbar spine, sacrum, right and left shoulders, knees bilaterally, both wrist articulations is commensurate with degenerative arthritis. 2.? Overall compared to the previous whole body bone scintigraphy study dated 10/17/2019, there is no significant interval change.? No current typical scintigraphic evidence of skeletal metastatic disease is demonstrated on the current examination. April 20, 2020 CT abdomen and pelvis: Comparison is made with prior outside examination dated 09/13/2017. Since prior examination, there has been marked improvement in the retroperitoneal and pelvic lymphadenopathy. April 20, 2020 chest x-ray: IMPRESSION: No demonstrated acute cardiopulmonary process. ? August 05, 2020 CT chest abdomen and pelvis: IMPRESSION: No acute cardiopulmonary findings.? Increase mild fibrotic bibasilar changes.? Stable 4 mm nodule of the right upper lobe. Stable subcentimeter/shotty periaortic lymph nodes and stable adenopathy of the left iliac chain as described above. New faintly osteoblastic 6 mm lesion of T 13, 13 rib bearing vertebral bodies.? Stable other osseous sclerotic lesions in the sternum, S1, right superior and inferior pubic rami.? These are very small and dense and could be bone islands rather than metastatic disease. ?No additional acute abdominal or pelvic findings. August 07, 2020 bone scan: IMPRESSION: 1.? The increase in tracer distribution defined in the bilateral shoulders, right and left elbows, wrists bilaterally, bilateral hands, cervical, thoracic and lumbar spine and sacrum, both knee articulations and right ankle is most consistent with degenerative arthritis. ?2.? Overall compared to the previous whole body bone scintigraphy study dated 03/18/2020, there is no significant interval change.? No current typical scintigraphic evidence of diffuse axial skeletal metastatic disease is noted on the current examination. June 27, 2022 bone scan: IMPRESSION: 1. The multifocal increase in radiopharmaceutical concentration defined in the bilateral shoulder, elbow and wrist articulations, the knees bilaterally, the cervical, thoracic and lumbar spine, the sacroiliac joints bilaterally consistent with degenerative arthritis. Correlation with plain film radiography is recommended in the thoracic, lumbar spine and pelvis. ? 2. Enhanced tracer distribution defined in the left anterior fourth rib the costochondral junction is most consistent with trauma-fracture. ? 3. Overall compared to the previous whole body bone scintigraphy study dated 08/07/2020, there is continued demonstration of diffuse degenerative changes with newly identified uptake noted in the thoracic and lumbar spine as well as pelvis warranting further evaluation with plain film x-ray. July 06, 2022 CT chest abdomen and pelvis: IMPRESSION: Essentially stable examination except for interval decrease in size of the lymph nodes seen in the left iliac chain. February 13, 2023 CT chest abdomen and pelvis: IMPRESSION: 1. Nodular density on the right side of the prostate bed could be prostate tissue. Correlation with PET scan is recommended. 2. Otherwise no significant change since the previous exam. 3. No evidence of new metastatic disease. February 20, 2023 bone scan: IMPRESSION: 1. The increase in tracer uptake noted in the left anterior chest wall consistent with trauma fracture. 2. Newly identified increased uptake noted in the proximal left femoral metaphysis, diaphysis and distal left femoral diaphysis may represent trauma-fracture or orthopedic hardware placement. Further evaluation with plain film radiography is recommended. 3. Degenerative changes are defined in the bilateral knee and shoulder articulations, the cervical, thoracic and lumbar spine, the sacrum and left midfoot. Treatment and response summary: - Lupron October 16 2017 - Taxotere prednisone March 26, 2018-June 2018 (6 cycles) MI - Zytiga prednisone July 2020-February 2023 MI then progression. - Xtandi February 2023 MI. -Zometa 2018- PFSH Medical History Hot flash in male Bone metastases Regional lymph node metastasis present Prostate cancer Prostate cancer Surgical History History of surgery on lower extremity Family History Father Prostate cancer Sister Breast cancer Grandmother Breast cancer Grandfather Colon cancer Social History Smoking Status: Never smoker alcohol intake: current alcohol intake frequency: holidays/special occasions only ROS Constitutional Constitutional: Reports systems reviewed and no addt'l complaints, except as documented; Denies fatigue or weight loss Eyes Eyes: Reports systems reviewed and no addt'l complaints, except as documented; Denies change in vision ENT HEENT: Reports systems reviewed and no addt'l complaints, except as documented; Denies mouth lesions Cardiovascular Cardiovascular: Reports systems reviewed and no addt'l complaints, except as documented; Denies chest pain with activity or edema Respiratory/Chest Respiratory/Chest: Reports systems reviewed and no addt'l complaints, except as documented; Denies cough or dyspnea on exertion Gastrointestinal Gastrointestinal: Reports systems reviewed and no addt'l complaints, except as documented; Denies change in bowel habits Genitourinary Genitourinary: Reports systems reviewed and no addt'l complaints, except as documented; Denies dysuria or hematuria Musculoskeletal Musculoskeletal: Reports systems reviewed and no addt'l complaints, except as documented, arthralgias and other Details: Knees arthritis ; Denies back pain Integumentary Integumentary: Reports systems reviewed and no addt'l complaints, except as documented; Denies rash Neurologic Neurologic: Reports systems reviewed and no addt'l complaints, except as documented and restless legs; Denies focal weakness, headache(s) or radicular pain Psychiatric Psychiatric: Reports systems reviewed and no addt'l complaints, except as documented Endocrine Endocrinology: Reports systems reviewed and no addt'l complaints, except as documented, flushing and other Details: Hot flashes are tolerable with treatment; Denies heat intolerance Hematologic/Lymphatic Hematologic/Lymphatic: Denies easy bleeding, easy bruising or lymphadenopathy Allergic/Immunologic Allergic/Immunologic: Reports systems reviewed and no addt'l complaints, except as documented Intake Vital Signs 07/18/24 13:55 08/29/24 11:31 08/29/24 11:35 Height 6 ft 2 in 6 ft 2 in 6 ft 2 in Weight: 92.788 kg 90.945 kg BMI 26.2 25.7 BP 151/84 H 160/90 H Blood Pressure Location Lt brachial Lt brachial Position Sitting Sitting Respiration 18 16 Pulse 62 58 L Pulse Source Monitor Monitor Temp 97.9 F 98.4 F Temperature Source Temporal Artery Temporal Artery Pulse Oximetry (%) 96 96 Oxygen Delivery Method room air room air Intake Is patient in pain?: No Allergies No Known Allergies Allergy (Verified 08/29/24 11:34) Medications ?Medication ?Instructions ?Recorded ?Confirmed ?Type calcium 600 mg (as 1 ea PO DAILY 02/19/1808/29 History carbonate)-vitamin D3 5 mcg (200 unit) tablet (Calcium 600 + D(3)) ropinirole 0.25 mg tablet 0.25 mg PO QHS 03/29/2208/18 History venlafaxine 37.5 mg tablet 37.5 mg PO DAILY 90 days #9 0 tabs 12/13/23 08/29/24 Rx meloxicam 7.5 mg tablet 7.5 mg PO QDAY 01/04/2408/18 History leuprolide (3 month) 22.5 mg (3 22.5 mg subcut Q12W #1 ea 02/12/24 08/29/24 Rx month) subcutaneous syringe ([employer]) leuprolide (3 month) 22.5 mg (3 22.5 mg subcut Q12W #4 ea 02/12/24 08/29/24 Rx month) subcutaneous syringe ([employer]) losartan 50 mg tablet 50 mg PO QDAY 03/28/2408/29 History rosuvastatin 10 mg tablet 10 mg PO QDAY 03/28/2408/29 History enzalutamide 80 mg tablet (Xtandi) 160 mg (2 x 80 mg) PO DAILY 30 04/08/24 08/29/24 Rx days #60 tabs Have you fallen in the past year?: No Central Venous Access Central Venous Access: No Laboratory Tests 02/19/18 09/06/19 10/17/19 15:09 13:40 07:59 Total PSA 13.40 H 0.47 0.58 Total Testosterone Free Testosterone 11/28/19 01/10/20 02/21/20 13:18 07:47 10:13 Total PSA 0.68 1.04 1.20 Total Testosterone Free Testosterone 03/27/20 04/20/20 05/15/20 11:12 13:31 12:00 Total PSA 1.54 1.87 1.78 Total Testosterone Free Testosterone 06/23/20 08/05/20 09/22/20 14:10 12:47 09:10 Total PSA 2.57 2.48 0.20 Total Testosterone 6 L Free Testosterone 0.15 L 11/03/20 12/15/20 01/26/21 11:50 11:53 09:50 Total PSA 0.10 0.10 0.07 Total Testosterone Free Testosterone 03/15/21 04/23/21 06/07/21 10:17 15:15 10:45 Total PSA 0.07 0.06 0.04 Total Testosterone Free Testosterone 07/16/21 08/30/21 10/11/21 13:17 11:40 11:40 Total PSA 0.04 0.05 0.03 Total Testosterone Free Testosterone 11/23/21 01/04/22 02/15/22 10:35 12:45 13:38 Total PSA 0.04 0.03 0.04 Total Testosterone Free Testosterone 03/29/22 05/10/22 06/21/22 12:30 14:42 09:52 Total PSA 0.03 0.04 0.06 Total Testosterone Free Testosterone 08/02/22 09/21/22 10/19/22 08:50 11:15 14:16 Total PSA 0.12 0.32 0.42 Total Testosterone Free Testosterone 11/17/22 12/14/22 01/25/23 14:45 14:25 10:45 Total PSA 0.66 0.79 1.62 Total Testosterone Free Testosterone 02/23/23 04/26/23 06/07/23 09:40 13:40 14:10 Total PSA 2.48 0.38 0.14 Total Testosterone Free Testosterone 07/19/23 08/30/23 11/23/23 14:10 08:55 10:10 Total PSA 0.08 0.04 0.02 Total Testosterone Free Testosterone 01/04/24 02/14/24 03/26/24 09:02 09:34 13:27 Total PSA 0.02 < 0.01 0.01 Total Testosterone Free Testosterone 05/01/24 06/06/24 08/29/24 12:45 10:00 10:58 Total PSA < 0.01 < 0.02 < 0.02 Total Testosterone Free Testosterone Exam Physical Exam Narrative ECOG 0 Const alert, oriented x3 and no apparent distress General Appearance: cooperative, comfortable and well kempt HEENT normocephalic Head and Scalp: normal to inspection Mouth: oral and palatal mucosa normal Eyes conjunctivae normal and no scleral icterus General Eye: normal appearance of both eyes Neck no lymphadenopathy, supple and no JVD Lymph Lymphatic: no lymphadenopathy noted Chest Chest: symmetrical chest wall rise Resp normal respiratory effort, normal air movement and clear to auscultation bilaterally Cardio regular rate and regular rhythm Jugular Venous Distention: Negative for JVD GI soft to palpation, non-tender, non-distended and hepatosplenomegaly no CVA tenderness Back/Spine no thoracic nor lumbar tenderness Extremity no clubbing, cyanosis or edema Skin no rashes or lesions noted Neuro oriented x3, CN's II-XII intact bilaterally, moves all extremities and no focal motor deficits Coordination / Balance: [id number] test normal Speech: speech normal Gait (Neuro): normal gait Psych mental status grossly normal, thought process normal, cooperative and affect normal Coding Level of Care Code Off vis,est,level 4 Exam Problem Focused Diagnoses Prostate cancer C61 Regional lymph node metastasis present C77.9 Bone metastases C79.51 Hot flash in male R23.2 Assessment and Plan Assessment and Plan (1) Prostate cancer: Status: Chronic (2) Regional lymph node metastasis present: Status: Chronic (3) Bone metastases: Status: Chronic (4) Hot flash in male: Status: Chronic Plan 63-year-old gentleman presented in 2018 with metastatic prostate cancer, stage IV (regional and nonregional lymph nodes and bones see HPI for details and course).? Diagnosis confirmed by a biopsy of retroperitoneal lymph nodes in September2017.??Cancer is microsatellite stable. October 2020 genetic testing at for a 47 gene panel showed no known pathogenicmutation, with a variant of uncertain significance. He , under the care of his urologist, received a dose of Lupron Daypro (6 months) in October 16 2017with a significant drop of his PSA from > 154 to 13 onDecember 2017 and with a castrate leveltestosterone level confirmed December2017. He has had progressive changes consistent with bony metastatic disease between his initial presentation in September 2 December,.? These changes do not necessarily represent a castrate resistant disease but more likely the lag in response to LHRH agonist therapy.? Nonetheless he has widely spread bony metastatic disease (high volume), and therefore when he transferred his care to [facility], he went on and received 6 cycles of systemic chemotherapy with Taxotere prednisone March through June 2018 without excessive toxicities and there was furtherdrop in his PSA. By late 2019 he appears to have an asymptomatic PSA relapse with no measurable disease.? His testosterone is at castrate level (last checked June 2020) July 2020 bone scan remained stable, however a CAT scan of the chest abdomen and pelvis shows a new subtle bone lesion at the lower thoracic spine (interestinglypatient has 13 rib bearing vertebral bodies). Nonetheless he remains asymptomatic. Was started on combined antiandrogen therapy with addition of Zytiga?prednisone July 2020 and is showing a clinical and PSA response. A Steady upward trend in PSA noted July 2022, although imaging by CAT scan and bone scan remained stable signifying an evolving resistance to Zytiga. Patient switched to Xtandi as of February 2023 and is showing another response to combined androgendeprivation therapy. Plan: 1.? Continue with androgen deprivation therapy (ADT) with Lupron Depot long- termand Xtandi. 2.? Follow-up with H&P and? PSA in 6 weeks. 3. Bone supportive therapy with Zometa? every 12 weeks. 4.? Continue with Effexor for symptomatic relief of hot flashes secondary to ADT. Patient was seen , impression and plan discussed, Luis Cooney MD Count Team Clerk, [facility] Divisions of Medical Oncology & Hematology Department of Internal Medicine [place] [id number] This note was generated? using a voice recognition system software.? Although itwas reviewed by theauthor prior to finalization, it may still contain incorrectwords, spelling, and punctuation that were not noted when reviewing prior to saving.? If a clinically significant typo or inaccurately typed? phrase is noted, please notify the author. Clinical Quality Measures Falls Risk Screening/Assistive Devices Have you fallen in the past year?: No 08/29/24 1203 christy MACDONALD> Date _ Luis Cooney MD Cosigner Signature: Date (if applicable) CC: ~ [facility]06-12-2025 Progress note Author Luis Cooney [facility] Note Date/Time August 29, 2024 12:0 3pm [facility] [place] [address] OFFICE VISIT Date of Service: 08/29/24 1129 MR#: [id number] Acct: [id number] Name: STEFFISAE FRACISCO Rep #: [id number] : 1960 From: Luis lester MD Age/Sex: 63/M Location: [facility] Status: Signed HPI Subjective Date of Service 08/29/24 Chief Complaint Prostate cancer on treatment History of Present Illness 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 revealed marked retroperitoneal, periaortic, and left iliac adenopathy with the largest lymph node mass measuring 5.6 cm in the lower periaortic/common iliac chain, together with a CT scan of the chest on September 21 showed no visceral metastatic disease. September 21, 2017:?A CT-guided biopsy of retroperitoneal lymph nodes? revealed metastatic adenocarcinoma PSA positive consistent with metastatic prostate cancer.??Cancer is microsatellite stable?( [facility] March 2020) October 2020 genetic testing at for a 47 gene panel showed no known pathogenicmutation, was a variant of uncertain significance. September 29, 2017:? PSA >154. September 28, 2017:?A bone scan? showed changes within the vertebral spine that were thought degenerative and inflammatory. He received a Lupron injection in September 2017 under the care of his urologist Dr. Jimenez, with Casodex cover in the first month then referred for a second opinion at where he was seen again by urologist Dr. Conn who informed him that his disease was non-operable, advised continued androgen deprivation therapy and consultation with medical oncology.? He was also seen by radiation oncology at [facility] by Dr. Murray who advised medical management. December 26, 2017:?A follow-up? bone scan? showed interval progressive changes scattered throughout the axial and proximal appendicular skeleton in addition toseveral small new foci highly suspicious for progressive osseous metastatic disease. December 22, 2017:?PSA? down to 20 and his testosterone level was consistent with a castrate level of 8. February 19, 2018:?Patient is transferring care to [facility] for proximity to his residence, PSA? further down to 13. July 31, 2018: Bone scan: IMPRESSION: 1.? The increased radiopharmaceutical concentration identified in the third thoracic vertebra may be further investigated with plain film radiography in the setting of known prostate carcinoma if not previously obtained. ? 2.? Degenerative arthritis remains apparent in the thoracic and lumbar spine, sacrum, left hip, bilateral shoulders elbows bilaterally, left wrist, right-left knees and right ankle articulation. ? 3.? Overall compared to the previous whole body bone scintigraphy study dated 12/26/2017, the persistent increase in tracer uptake noted in the third thoracic vertebra warrants further evaluation with plain film radiography is not previously obtained. Otherwise, there is no significant interval change compared to the prior examination. February 2019 bone scan: IMPRESSION: 1.? The increase in radiopharmaceutical concentration identified in the cervical thoracic and lumbar spine, both shoulders, sacrum, wrist and elbow articulations bilaterally, right and left hips, both knees is commensurate with degenerative arthritis. ?2.? Overall compared to the previous whole body bone scintigraphy study dated 07/31/2018, there is no significant interval change.? There is no present typical scintigraphic evidence of diffuse axial skeletal metastatic disease. October 17, 2019 bone scan: IMPRESSION: 1. The increase in radiopharmaceutical distribution currently defined in the cervical, thoracic and lumbar spine, sacrum, bilateral shoulders, left elbow, right-left knees, the right ankle and left wrist are commensurate with degenerative arthritis. 2.? Overall compared to the previous whole body bone scintigraphy study dated 03/19/2019, there is no significant interval change.? No current typical scintigraphic evidence of diffuse axial skeletal metastatic disease is demonstrated on the present examination. March 18, 2020 bone scan: IMPRESSION: 1.? The increase in tracer distribution defined in the cervical, thoracic and lumbar spine, sacrum, right and left shoulders, knees bilaterally, both wrist articulations is commensurate with degenerative arthritis. 2.? Overall compared to the previous whole body bone scintigraphy study dated 10/17/2019, there is no significant interval change.? No current typical scintigraphic evidence of skeletal metastatic disease is demonstrated on the current examination. April 20, 2020 CT abdomen and pelvis: Comparison is made with prior outside examination dated 09/13/2017. Since prior examination, there has been marked improvement in the retroperitoneal and pelvic lymphadenopathy. April 20, 2020 chest x-ray: IMPRESSION: No demonstrated acute cardiopulmonary process. ? August 05, 2020 CT chest abdomen and pelvis: IMPRESSION: No acute cardiopulmonary findings.? Increase mild fibrotic bibasilar changes.? Stable 4 mm nodule of the right upper lobe. Stable subcentimeter/shotty periaortic lymph nodes and stable adenopathy of the left iliac chain as described above. New faintly osteoblastic 6 mm lesion of T 13, 13 rib bearing vertebral bodies.? Stable other osseous sclerotic lesions in the sternum, S1, right superior and inferior pubic rami.? These are very small and dense and could be bone islands rather than metastatic disease. ?No additional acute abdominal or pelvic findings. August 07, 2020 bone scan: IMPRESSION: 1.? The increase in tracer distribution defined in the bilateral shoulders, right and left elbows, wrists bilaterally, bilateral hands, cervical, thoracic and lumbar spine and sacrum, both knee articulations and right ankle is most consistent with degenerative arthritis. ?2.? Overall compared to the previous whole body bone scintigraphy study dated 03/18/2020, there is no significant interval change.? No current typical scintigraphic evidence of diffuse axial skeletal metastatic disease is noted on the current examination. June 27, 2022 bone scan: IMPRESSION: 1. The multifocal increase in radiopharmaceutical concentration defined in the bilateral shoulder, elbow and wrist articulations, the knees bilaterally, the cervical, thoracic and lumbar spine, the sacroiliac joints bilaterally consistent with degenerative arthritis. Correlation with plain film radiography is recommended in the thoracic, lumbar spine and pelvis. ? 2. Enhanced tracer distribution defined in the left anterior fourth rib the costochondral junction is most consistent with trauma-fracture. ? 3. Overall compared to the previous whole body bone scintigraphy study dated 08/07/2020, there is continued demonstration of diffuse degenerative changes with newly identified uptake noted in the thoracic and lumbar spine as well as pelvis warranting further evaluation with plain film x-ray. July 06, 2022 CT chest abdomen and pelvis: IMPRESSION: Essentially stable examination except for interval decrease in size of the lymph nodes seen in the left iliac chain. February 13, 2023 CT chest abdomen and pelvis: IMPRESSION: 1. Nodular density on the right side of the prostate bed could be prostate tissue. Correlation with PET scan is recommended. 2. Otherwise no significant change since the previous exam. 3. No evidence of new metastatic disease. February 20, 2023 bone scan: IMPRESSION: 1. The increase in tracer uptake noted in the left anterior chest wall consistent with trauma fracture. 2. Newly identified increased uptake noted in the proximal left femoral metaphysis, diaphysis and distal left femoral diaphysis may represent trauma-fracture or orthopedic hardware placement. Further evaluation with plain film radiography is recommended. 3. Degenerative changes are defined in the bilateral knee and shoulder articulations, the cervical, thoracic and lumbar spine, the sacrum and left midfoot. Treatment and response summary: - Lupron October 16 2017 - Taxotere prednisone March 26, 2018-June 2018 (6 cycles) MI - Zytiga prednisone July 2020-February 2023 MI then progression. - Xtandi February 2023 MI. -Zometa 2018- PFSH Medical History Hot flash in male Bone metastases Regional lymph node metastasis present Prostate cancer Prostate cancer Surgical History History of surgery on lower extremity Family History Father Prostate cancer Sister Breast cancer Grandmother Breast cancer Grandfather Colon cancer Social History Smoking Status: Never smoker alcohol intake: current alcohol intake frequency: holidays/special occasions only ROS Constitutional Constitutional: Reports systems reviewed and no addt'l complaints, except as documented; Denies fatigue or weight loss Eyes Eyes: Reports systems reviewed and no addt'l complaints, except as documented; Denies change in vision ENT HEENT: Reports systems reviewed and no addt'l complaints, except as documented; Denies mouth lesions Cardiovascular Cardiovascular: Reports systems reviewed and no addt'l complaints, except as documented; Denies chest pain with activity or edema Respiratory/Chest Respiratory/Chest: Reports systems reviewed and no addt'l complaints, except as documented; Denies cough or dyspnea on exertion Gastrointestinal Gastrointestinal: Reports systems reviewed and no addt'l complaints, except as documented; Denies change in bowel habits Genitourinary Genitourinary: Reports systems reviewed and no addt'l complaints, except as documented; Denies dysuria or hematuria Musculoskeletal Musculoskeletal: Reports systems reviewed and no addt'l complaints, except as documented, arthralgias and other Details: Knees arthritis ; Denies back pain Integumentary Integumentary: Reports systems reviewed and no addt'l complaints, except as documented; Denies rash Neurologic Neurologic: Reports systems reviewed and no addt'l complaints, except as documented and restless legs; Denies focal weakness, headache(s) or radicular pain Psychiatric Psychiatric: Reports systems reviewed and no addt'l complaints, except as documented Endocrine Endocrinology: Reports systems reviewed and no addt'l complaints, except as documented, flushing and other Details: Hot flashes are tolerable with treatment; Denies heat intolerance Hematologic/Lymphatic Hematologic/Lymphatic: Denies easy bleeding, easy bruising or lymphadenopathy Allergic/Immunologic Allergic/Immunologic: Reports systems reviewed and no addt'l complaints, except as documented Intake Vital Signs 07/18/24 13:55 08/29/24 11:31 08/29/24 11:35 Height 6 ft 2 in 6 ft 2 in 6 ft 2 in Weight: 92.788 kg 90.945 kg BMI 26.2 25.7 BP 151/84 H 160/90 H Blood Pressure Location Lt brachial Lt brachial Position Sitting Sitting Respiration 18 16 Pulse 62 58 L Pulse Source Monitor Monitor Temp 97.9 F 98.4 F Temperature Source Temporal Artery Temporal Artery Pulse Oximetry (%) 96 96 Oxygen Delivery Method room air room air Intake Is patient in pain?: No Allergies No Known Allergies Allergy (Verified 08/29/24 11:34) Medications ?Medication ?Instructions ?Recorded ?Confirmed ?Type calcium 600 mg (as 1 ea PO DAILY 02/19/1808/29 History carbonate)-vitamin D3 5 mcg (200 unit) tablet (Calcium 600 + D(3)) ropinirole 0.25 mg tablet 0.25 mg PO QHS 03/29/2208/18 History venlafaxine 37.5 mg tablet 37.5 mg PO DAILY 90 days #9 0 tabs 12/13/23 08/29/24 Rx meloxicam 7.5 mg tablet 7.5 mg PO QDAY 01/04/2408/18 History leuprolide (3 month) 22.5 mg (3 22.5 mg subcut Q12W #1 ea 02/12/24 08/29/24 Rx month) subcutaneous syringe (EliMusicIPd) leuprolide (3 month) 22.5 mg (3 22.5 mg subcut Q12W #4 ea 02/12/24 08/29/24 Rx month) subcutaneous syringe (Eligard) losartan 50 mg tablet 50 mg PO QDAY 03/28/2408/29 History rosuvastatin 10 mg tablet 10 mg PO QDAY 03/28/2408/29 History enzalutamide 80 mg tablet (Xtandi) 160 mg (2 x 80 mg) PO DAILY 30 04/08/24 08/29/24 Rx days #60 tabs Have you fallen in the past year?: No Central Venous Access Central Venous Access: No Laboratory Tests 02/19/18 09/06/19 10/17/19 15:09 13:40 07:59 Total PSA 13.40 H 0.47 0.58 Total Testosterone Free Testosterone 11/28/19 01/10/20 02/21/20 13:18 07:47 10:13 Total PSA 0.68 1.04 1.20 Total Testosterone Free Testosterone 03/27/20 04/20/20 05/15/20 11:12 13:31 12:00 Total PSA 1.54 1.87 1.78 Total Testosterone Free Testosterone 06/23/20 08/05/20 09/22/20 14:10 12:47 09:10 Total PSA 2.57 2.48 0.20 Total Testosterone 6 L Free Testosterone 0.15 L 11/03/20 12/15/20 01/26/21 11:50 11:53 09:50 Total PSA 0.10 0.10 0.07 Total Testosterone Free Testosterone 03/15/21 04/23/21 06/07/21 10:17 15:15 10:45 Total PSA 0.07 0.06 0.04 Total Testosterone Free Testosterone 07/16/21 08/30/21 10/11/21 13:17 11:40 11:40 Total PSA 0.04 0.05 0.03 Total Testosterone Free Testosterone 11/23/21 01/04/22 02/15/22 10:35 12:45 13:38 Total PSA 0.04 0.03 0.04 Total Testosterone Free Testosterone 03/29/22 05/10/22 06/21/22 12:30 14:42 09:52 Total PSA 0.03 0.04 0.06 Total Testosterone Free Testosterone 08/02/22 09/21/22 10/19/22 08:50 11:15 14:16 Total PSA 0.12 0.32 0.42 Total Testosterone Free Testosterone 11/17/22 12/14/22 01/25/23 14:45 14:25 10:45 Total PSA 0.66 0.79 1.62 Total Testosterone Free Testosterone 02/23/23 04/26/23 06/07/23 09:40 13:40 14:10 Total PSA 2.48 0.38 0.14 Total Testosterone Free Testosterone 07/19/23 08/30/23 11/23/23 14:10 08:55 10:10 Total PSA 0.08 0.04 0.02 Total Testosterone Free Testosterone 01/04/24 02/14/24 03/26/24 09:02 09:34 13:27 Total PSA 0.02 < 0.01 0.01 Total Testosterone Free Testosterone 05/01/24 06/06/24 08/29/24 12:45 10:00 10:58 Total PSA < 0.01 < 0.02 < 0.02 Total Testosterone Free Testosterone Exam Physical Exam Narrative ECOG 0 Const alert, oriented x3 and no apparent distress General Appearance: cooperative, comfortable and well kempt HEENT normocephalic Head and Scalp: normal to inspection Mouth: oral and palatal mucosa normal Eyes conjunctivae normal and no scleral icterus General Eye: normal appearance of both eyes Neck no lymphadenopathy, supple and no JVD Lymph Lymphatic: no lymphadenopathy noted Chest Chest: symmetrical chest wall rise Resp normal respiratory effort, normal air movement and clear to auscultation bilaterally Cardio regular rate and regular rhythm Jugular Venous Distention: Negative for JVD GI soft to palpation, non-tender, non-distended and hepatosplenomegaly no CVA tenderness Back/Spine no thoracic nor lumbar tenderness Extremity no clubbing, cyanosis or edema Skin no rashes or lesions noted Neuro oriented x3, CN's II-XII intact bilaterally, moves all extremities and no focal motor deficits Coordination / Balance: srevrd-us-[id number] test normal Speech: speech normal Gait (Neuro): normal gait Psych mental status grossly normal, thought process normal, cooperative and affect normal Coding Level of Care Code Off vis,est,level 4 Exam Problem Focused Diagnoses Prostate cancer C61 Regional lymph node metastasis present C77.9 Bone metastases C79.51 Hot flash in male R23.2 Assessment and Plan Assessment and Plan (1) Prostate cancer: Status: Chronic (2) Regional lymph node metastasis present: Status: Chronic (3) Bone metastases: Status: Chronic (4) Hot flash in male: Status: Chronic Plan 63-year-old gentleman presented in 2018 with metastatic prostate cancer, stage IV (regional and nonregional lymph nodes and bones see HPI for details and course).? Diagnosis confirmed by a biopsy of retroperitoneal lymph nodes in September2017.??Cancer is microsatellite stable. October 2020 genetic testing at for a 47 gene panel showed no known pathogenicmutation, with a variant of uncertain significance. He , under the care of his urologist, received a dose of Lupron Daypro (6 months) in October 16 2017 with a significant drop of his PSA from > 154 to 13 onFebruary 19, 2018 and with a castrate level testosterone level confirmed December2017. He has had progressive changes consistent with bony metastatic disease between his initial presentation in September 2 December,.? These changes do not necessarily represent a castrate resistant disease but more likely the lag in response to LHRH agonist therapy.? Nonetheless he has widely spread bony metastatic disease (high volume), and therefore when he transferred his care to [facility], he went on and received 6 cycles of systemic chemotherapy with Taxotere prednisone March through June 2018 without excessive toxicities and there was further drop in his PSA. By late 2019 he appears to have an asymptomatic PSA relapse with no measurable disease.? His testosterone is at castrate level (last checked June 2020) July 2020 bone scan remained stable, however a CAT scan of the chest abdomen and pelvis shows a new subtle bone lesion at the lower thoracic spine (interestinglypatient has 13 rib bearing vertebral bodies). Nonetheless he remains asymptomatic. Was started on combined antiandrogen therapy with addition of Zytiga?prednisone July 2020 and is showing a clinical and PSA response. A Steady upward trend in PSA noted July 2022, although imaging by CAT scan and bone scan remained stable signifying an evolving resistance to Zytiga. Patient switched to Xtandi as of February 2023 and is showing another response to combined androgen deprivation therapy. Plan: 1.? Continue with androgen deprivation therapy (ADT) with Lupron Depot long- termand Xtandi. 2.? Follow-up with H&P and? PSA in 6 weeks. 3. Bone supportive therapy with Zometa? every 12 weeks. 4.? Continue with Effexor for symptomatic relief of hot flashes secondary to ADT. Patient was seen , impression and plan discussed, Luis Cooney MD Count Team Clerk, [facility] Divisions of Medical Oncology & Hematology Department of Internal Medicine [place] [phone] This note was generated? using a voice recognition system software.? Although itwas reviewed by the author prior to finalization, it may still contain incorrectwords, spelling, and punctuation that were not noted when reviewing prior to saving.? If a clinically significant typo or inaccurately typed? phrase is noted, please notify the author. Clinical Quality Measures Falls Risk Screening/Assistive Devices Have you fallen in the past year?: No 08/29/24 1203 <Electronically signed by Luis harrison MD> Date _ Luis Cooney MD Cosigner Signature: Date (if applicable) CC: ~ [facility] Work Phone: [phone]) 384-625405-27-2025 Evaluation + Plan note* Assessment & Plan Note - Kaiser Leal MD - 08/13/2024 9:16 AM EDTAssociated Problem(s): Primary osteoarthritis of both knees Assessment: Bilateral osteoarthritis of the knees. Patient states he is doing well but he has noticed that the cortisone injections are starting to diminish in their effectiveness. Plan: Under ultrasound control 40 mg of Kenalog was injected into each knee. He had an excellent lidocaine suppression test. Follow-up in 12 weeks for reevaluation. [facility] Work Phone: [phone] Miscellaneous Notes* Assessment & Plan Note - Kaiser Leal MD - 08/13/2024 9:16 AM EDTAssociated Problem(s): Primary osteoarthritis of both knees Assessment: Bilateral osteoarthritis of the knees. Patient states he is doing well but he has noticed that the cortisone injections are starting to diminish in their effectiveness. Plan: Under ultrasound control 40 mg of Kenalog was injected into each knee. He had an excellent lidocaine suppression test. Follow-up in 12 weeks for reevaluation. [facility] Work Phone: [phone] History of Present illness Narrative* Kaiser Leal MD - 08/13/2024 9:15 AM EDTAssociated Order(s): L Inj/Asp: bilateral knee Post-Procedure Diagnose(s): Primary osteoarthritis of both knees Assessment/Plan Encounter Diagnoses: Primary osteoarthritis of both knees Primary osteoarthritis of both knees Assessment: Bilateral osteoarthritis of the knees. Patient states he is doing well but he has noticed that the cortisone injections are starting to diminish in their effectiveness. Plan: Under ultrasound control 40 mg of Kenalog was injected into each knee. He had an excellent lidocaine suppression test. Follow-up in 12 weeks for reevaluation. Subjective Patient ID: Sae Kapadia is a 63 y.o. male. Chief Complaint: Follow-up of the Right Knee and Follow-up and Pain of the Left Knee Last Surgery: No surgery found Last Surgery Date: No surgery found HPI 63-year-old male who comes in today for evaluation of his bilateral osteoarthritic knees mild. 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 His pain level is starting to wax. He wishes to consider repeatcortisone injections. 08/13/2024-comes in today stating that his knees are just starting to aggravate him again. He has anupcoming wedding. He would like to get a booster cortisone injection. OBJECTIVE: ORTHO EXAM Right knee: Skin healthy and intact No gross swelling or ecchymosis Alignment: Varus Effusion: Minimal ROM: 0 degrees Extension 110 degrees Flexion Minimal crepitance with range of motion No pain with internal rotation of the hip Tenderness to palpation: Medial joint line 10 degrees laxity to valgus stress Minimal laxity to varus stress Negative Sharmaine s test Negative posterior drawer test Minimal pain with Raffy s test Neurovascular exam normal distally 2+ DP pulse and good cap refill Left knee: Skin healthy and intact No gross swelling or ecchymosis Alignment: Varus Effusion: Minimal ROM: 0 degrees Extension 120 degrees Flexion Minimal crepitance with range of motion No pain with internal rotation of the hip Tenderness to palpation: Medial joint line 10 degrees laxity to valgus stress Minimal laxity to varus stress Negative Sharmaine s test Negative posterior drawer test Minimal pain with Raffy s test Neurovascular exam normal distally 2+ DP pulse and good cap refill IMAGE RESULTS: Point of Care Ultrasound These images are not reportable by radiology and will not be interpreted by Radiologists. ULTRASOUND L Inj/Asp: bilateral knee on 08/13/2024 9:16 AM Details: ultrasound-guided superolateral approach Medications (Right): 40 mg triamcinolone acetonide 40 mg/mL Medications (Left): 40 mg triamcinolone acetonide 40 mg/mL Procedure, treatment alternatives, risks and benefits explained, specific risks discussed. Immediately prior to procedure a time out was called to verify the correct patient, procedure, equipment, service support representative and site/side marked as required. Patient was prepped and draped in the usual sterile fashion. Orders Placed This Encounter Point of Care Ultrasound [facility] Work Phone: [phone]) 178-765505-01-2025 Evaluation note* Diagnosis Onset Date Resolution Status Admit Date Bone metastases chronic July 18, 2024 1:02pm Hot flash in male chronic July 1:02pm Prostate cancer chronic July 18, 2024 1:02pm Regional lymph node metastas is present chronic July 18, 2024 1: 02pm Bone metastases chronic August 10:48am Hot flash in male chronic August 292024 10:48am Prostate cancer chronic August 10:48am Regional lymph node metastas is present chronic August 29, 2024 10:48am Bone metastases chronic September 10:45am Hot flash in male chronic October 102024 10:45am Prostate cancer chronic September 10:45am Regional lymph node metastas is present chronic October 10, 2024 10:45am Educational circumstance resolved October 10, 2024 10:45am Neck pain resolved October 10 10:45am [facility] Work Phone: [phone] 265-349903-04-2025 Evaluation + Plan note* Assessment & Plan Note - Kaiser Leal MD - 05/21/2024 1:02 PM ESTAssociated Problem(s): Primary osteoarthritis of both knees Assessment: Bilateral osteoarthritis of the knees. Patient states he is doing well but he has noticed that the cortisone injections he received in late November are starting to diminish in their effectiveness. Plan: Under ultrasound control 40 mg of Kenalog was injected into each knee. He had an excellent lidocaine suppression test. Follow-up in 12 weeks for reevaluation. [facility] Work Phone: [phone] 156-515103-04-2025 Miscellaneous Notes* Assessment & Plan Note - Kaiser Leal MD - 05/21/2024 1:02 PM ESTAssociated Problem(s): Primary osteoarthritis of both knees Assessment: Bilateral osteoarthritis of the knees. Patient states he is doing well but he has noticed that the cortisone injections he received in november are starting to diminish in their effectiveness. Plan: Under ultrasound control 40 mg of Kenalog was injected into each knee. He had an excellent lidocaine suppression test. Follow-up in 12 weeks for reevaluation. [facility] Work Phone: [phone] History of Present illness Narrative* Kaiser Leal MD - 05/21/2024 8:00 AM ESTAssociated Order(s): L Inj/Asp: bilateral knee Post-Procedure Diagnose(s): Primary osteoarthritis of both knees Assessment/Plan Encounter Diagnoses: Primary osteoarthritis of both knees Primary osteoarthritis of both knees Assessment: Bilateral osteoarthritis of the knees. Patient states he is doing well but he has noticed that the cortisone injections he received in late November are starting to diminish in their effectiveness. Plan: Under ultrasound control 40 mg of Kenalog was injected into each knee. He had an excellent lidocaine suppression test. Follow-up in 12 weeks for reevaluation. Subjective Patient ID: Sae Kapadia is a 63 y.o. male. Chief Complaint: Follow-up of the Right Knee (X-rays 05-21-24/Last inj 9-24-24/Pain rate 5) and Follow-up and Pain of the Left Knee (X-rays 05-21-24/Last 12-12-23/Pain rate 7-8) Last Surgery: No surgery found Last Surgery Date: No surgery found HPI 63-year-old male who comes in today for evaluation of his bilateral osteoarthritic knees mild. 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 His pain level is starting to wax. He wishes to consider repeatcortisone injections. OBJECTIVE: ORTHO EXAM Right knee: Skin healthy and intact No gross swelling or ecchymosis Alignment: Varus Effusion: Minimal ROM: 0 degrees Extension 110 degrees Flexion Minimal crepitance with range of motion No pain with internal rotation of the hip Tenderness to palpation: Medial joint line 10 degrees laxity to valgus stress Minimal laxity to varus stress Negative Sharmaine s test Negative posterior drawer test Minimal pain with Raffy s test Neurovascular exam normal distally 2+ DP pulse and good cap refill Left knee: Skin healthy and intact No gross swelling or ecchymosis Alignment: Varus Effusion: Minimal ROM: 0 degrees Extension 120 degrees Flexion Minimal crepitance with range of motion No pain with internal rotation of the hip Tenderness to palpation: Medial joint line 10 degrees laxity to valgus stress Minimal laxity to varus stress Negative Sharmaine s test Negative posterior drawer test Minimal pain with Raffy s test Neurovascular exam normal distally 2+ DP pulse and good cap refill IMAGE RESULTS: Point of Care Ultrasound These images are not reportable by radiology and will not be interpreted by Radiologists. ULTRASOUND L Inj/Asp: bilateral knee on 05/21/2024 1:04 PM Details: ultrasound-guided superolateral approach Medications (Right): 40 mg triamcinolone acetonide 40 mg/mL Medications (Left): 40 mg triamcinolone acetonide 40 mg/mL Procedure, treatment alternatives, risks and benefits explained, specific risks discussed. Immediately prior to procedure a time out was called to verify the correct patient, procedure, equipment, service support representative and site/side marked as required. Patient was prepped and draped in the usual sterile fashion. Orders Placed This Encounter Point of Care Ultrasound XR knee 4+ views bilateral [facility] Work Phone: [phone]) [phone] History of Present illness Narrative* Emy Delta Velez, [employer] - 05/14/2024 9:50 AM EST Subjective Patient ID: Sae Kapadia is a 63 y.o. male who presents for [facility]. HPI Here today for yearly exam, and to establish with me PMH reviewed, he is doing well, completed chemo. Follows with oncology every 6 weeks at [facility]. Depression and anxiety reports he is tolerating the effexor and does not have any side effects. Restless leg, he reports the requip is helpful Osteoarthritis he is following with ortho and receives injections every 3-6 months. Also manages with Meloxicam. Review of Systems Constitutional: Negative for chills, fatigue and fever. Respiratory: Negative for cough and shortness of breath. Cardiovascular: Negative for chest pain, palpitations and leg swelling. Gastrointestinal: Negative for abdominal pain, constipation, diarrhea, nausea and vomiting. Genitourinary: Negative for dysuria. Neurological: Negative for light-headedness and headaches. Objective BP 161/89 (Patient Position: Sitting) Pulse 61 Ht 1.88 m (6' 2) Wt 92.1 kg (203 lb) BMI 26.06 kg/m Physical Exam Cardiovascular: Rate and Rhythm: Normal rate and regular rhythm. Heart sounds: Normal heart sounds. Pulmonary: Breath sounds: Normal breath sounds. Abdominal: General: Bowel sounds are normal. Musculoskeletal: Right lower leg: No edema. Left lower leg: No edema. Skin: Capillary Refill: Capillary refill takes less than 2 seconds. Neurological: Mental Status: He is alert and oriented to person, place, and time. Assessment/Plan Problem List Items Addressed This Visit ICD-10-CM Dyslipidemia E78.5 Relevant Orders Lipid Panel TSH with reflex to Free T4 if abnormal Hot flashes R23.2 Relevant Orders TSH with reflex to Free T4 if abnormal HTN (hypertension) - Primary I10 Relevant Orders CBC and Auto Differential Comprehensive Metabolic Panel TSH with reflex to Free T4 if abnormal Restless legs syndrome (RLS) G25.81 Relevant Medications rOPINIRole (Requip) 0.25 mg tablet Primary osteoarthritis of both knees M17.0 Relevant Medications meloxicam (Mobic) 15 mg tablet Care gaps -Colonoscopy in 2018, due in 2027 -lab work ordered today Osteoarthritis of knees -Meloxicam 15mg daily -injections every 3-6 months Restless leg syndrome -Requip 0.25 mg 3x day Depression and anxiety -Conitnue effexor 37.5 mg documented in this [facility] Work Phone: [phone]) [phone] Evaluation note* Diagnosis Onset Date Resolution Status Admit Date Bone metastases chronic May 01, 2024 12:24pm Hot flash in male chronic 2024 12:24pm Prostate cancer chronic May 01, 2024 12:24pm Regional lymph node metastasis present chronic April 12:24pm Bone metastases chronic May 9:48am Hot flash in male chronic May 192024 9:48am Prostate cancer chronic May 9:48am Regional lymph node metastasis present chronic June 06, 9:48am Bone metastases chronic July 18, 2024 1:02pm Hot flash in male chronic July 1:02pm Prostate cancer chronic July 18, 2024 1:02pm Regional lymph node metastasis present chronic July 18, 2024 1:02pm Bone metastases chronic August 10:45am Hot flash in male chronic August 292024 10:45am Prostate cancer chronic August 10:45am Regional lymph node metastasis present chronic August 29 10:45am Educational circumstance resolved August 29, 2024 10:45am Neck pain resolved August 29 10:45am Bone metastases chronic August 10:48am Hot flash in male chronic August 292024 10:48am Prostate cancer chronic August 10:48am Regional lymph node metastasis present chronic August 29 10:48am [facility] Work Phone: 1([phone]) 405-333409-25-2024 Evaluation + Plan note* Assessment & Plan Note - IAN Roe - 12/13/2023 12:43 PM EDTAssociated Problem(s): Primary osteoarthritis of both knees We reviewed conservative measures for knee OA symptom control. Rx Meloxicam once daily initiated Patient to continue to take Tylenol per package directions, diclofenac gel up to 4 times daily. AAOS knee conditioning exercises provided to begin in approximately 1 week and advance as tolerated. We did discuss benefits of formal PT, patient can contact the office at any time if he wishes to pursue this as an option. Plan will be to follow-up here in approximately 3 months, sooner for changes or concerns. Patient with positive lidocaine suppression at time of discharge with significant improvement in pain symptoms. This note was generated using RubyRide software. It may contain errors in wording, punctuation or spelling. [facility] Work Phone: [phone] Miscellaneous Notes* Assessment & Plan Note - IAN Roe - 12/13/2023 12:43 PM EDTAssociated Problem(s): Primary osteoarthritis of both knees We reviewed conservative measures for knee OA symptom control. Rx Meloxicam once daily initiated Patient to continue to take Tylenol per package directions, diclofenac gel up to 4 times daily. AAOS knee conditioning exercises provided to begin in approximately 1 week and advance as tolerated. We did discuss benefits of formal PT, patient can contact the office at any time if he wishes to pursue this as an option. Plan will be to follow-up here in approximately 3 months, sooner for changes or concerns. Patient with positive lidocaine suppression at time of discharge with significant improvement in pain symptoms. This note was generated using RubyRide software. It may contain errors in wording, punctuation or spelling. [facility] Work Phone: [phone] 729-694809-24-2024 History of Present illness Narrative* IAN Roe - 12/12/2023 1:00 PM EDTAssociated Order(s): L Inj/Asp: bilateral knee Subjective Patient ID: Sae D Kapadia is a 63 y.o. male. Chief Complaint: Pain of the Left Knee (WORSE THAN RIGHT KNEE) and Pain of the Right Knee HPI: Left Knee Right Knee Sae is a pleasant 63-year-old gentleman presenting for initial visit of bilateral knee pain Knee pain for some time, worsening over last 3 months L worse than R Sx to medial aspect of the knee Agg with sitting, standing, walking, walking on kelsi ground, on and off equipment,some with step use Naproxen, Voltaren gel with some relief Rare Tylenol Hx femur fx 1 yr ago with rodkati Zavaal ([facility]) + popping and grinding Review of Systems Constitutional: Negative. HENT: Negative. Respiratory: Negative. Cardiovascular: Negative. Endocrine: Negative. Musculoskeletal: Positive for arthralgias and gait problem. Skin: Negative. Hematological: Negative. Psychiatric/Behavioral: Negative. Objective Right Knee Exam Tenderness The patient is experiencing tenderness in the medial joint line. Range of Motion Extension: 0 Flexion: 120 Tests Raffy: Medial - negative Lateral - negative Varus: negative Valgus: negative Drawer: Anterior - negative Posterior - negative Other Erythema: absent Sensation: normal Pulse: present Swelling: none Comments: Mild medial joint hypertrophy present Mild symptom aggravation with Apley's testing, no instability Full ROM of distal joints with no sx aggravation Distal motor and sensory intact, cap refill at 2 seconds. Left Knee Exam Other Erythema: absent Sensation: normal Pulse: present Swelling: mild Comments: Moderate medial joint hypertrophy present + symptom aggravation with Apley's testing, no instability Full ROM of distal joints with no sx aggravation Distal motor and sensory intact, cap refill at 2 seconds. Image Results: XR knee right 3 views, XR knee left 3 views, XR femur left 2+ views Narrative: Interpreted By: Live Walker, STUDY: XR KNEE RIGHT 3 VIEWS; XR KNEE LEFT 3 VIEWS; XR FEMUR LEFT 2+ VIEWS INDICATION: Signs/Symptoms:knee pain; Signs/Symptoms:history of fracture with surgery. COMPARISON: 2016 ACCESSION NUMBER(S): [id number]; [id number]; [id number] ORDERING CLINICIAN: EMY VELEZ FINDINGS: Right knee demonstrates advanced osteoarthritis worst medially, progressed from prior study. The left knee demonstrates advanced osteoarthritis also worst in the medial compartment. Postsurgical changes status post ORIF of a left subtrochanteric femoral fracture with long intramedullary neel without complication. Impression: Advanced osteoarthritis bilateral knees. Satisfactory appearance status post ORIF left subtrochanteric femoral fracture. Signed by: Live Walker 12/02/2023 9:01 AM Dictation workstation: [id number] Patient ID: Sae Kapadia is a 63 y.o. male. L Inj/Asp: bilateral knee on 12/12/2023 1:49 PM Indications: pain and joint swelling Details: 22 G needle, ultrasound-guided superolateral approach Medications (Right): 40 mg triamcinolone acetonide 40 mg/mL Medications (Left): 40 mg triamcinolone acetonide 40 mg/mL Outcome: tolerated well, no immediate complications We discussed risk and benefits of cortisone injection, patient wishes to proceed via verbal consent. Skin was prepped with Betadine, vapo coolant spray and alcohol. Administered injection of 40 mg Kenalog, 3 cc 2% lidocaine and 3 cc of 0.25% bupivacaine. Patient tolerated injection well with lidocaine suppression. No active bleeding, bandage applied to site. Procedure, treatment alternatives, risks and benefits explained, specific risks discussed. Consent was given by the patient. Immediately prior to procedure a time out was called to verify the correctpatient, procedure, equipment, service support representative and site/side marked as required. Patient was prepped and draped in the usual sterile fashion. Assessment/Plan Encounter Diagnoses: Problem List Items Addressed This Visit ICD-10-CM Primary osteoarthritis of both knees - Primary M17.0 We reviewed conservative measures for knee OA symptom control. Rx Meloxicam once daily initiated Patient to continue to take Tylenol per package directions, diclofenac gel up to 4 times daily. AAOS knee conditioning exercises provided to begin in approximately 1 week and advance as tolerated. We did discuss benefits of formal PT, patient can contact the office at any time if he wishes to pursue this as an option. Plan will be to follow-up here in approximately 3 months, sooner for changes or concerns. Patient with positive lidocaine suppression at time of discharge with significant improvement in pain symptoms. This note was generated using RubyRide software. It may contain errors in wording, punctuation or spelling. Relevant Medications meloxicam (Mobic) 15 mg tablet Other Relevant Orders Follow Up In Orthopaedic Surgery Other Visit Diagnoses Codes Arthritis of both knees M17.0 documented [facility] this [facility] Work Phone: [phone] History of Present illness Narrative* IAN Shankar - 12/01/2023 1:50 PM EDT Subjective Patient ID: Sae Kapadia is a 63 y.o. male who presents for Knee Pain. HPI Here today for knee pain, reports the left knee is worse than the right. Summer 2022 she broke his femur and had a neel placed. Reports the knee pain started shortly after the surgery and it has gotten worse. Reports the right knee hurts but it is not nearly as painful. No other concerns Review of Systems Constitutional: Negative for fatigue. Musculoskeletal: Positive for arthralgias, joint swelling and myalgias. Objective BP 145/84 (Patient Position: Sitting) Pulse 75 Ht 1.88 m (6' 2) Wt 92.4 kg (203 lb 9.6 oz) BMI 26.14 kg/m Physical Exam Musculoskeletal: Right knee: Decreased range of motion. Tenderness present. Left knee: Effusion present. Decreased range of motion. Tenderness present. Assessment/Plan Problem List Items Addressed This Visit None Visit Diagnoses Codes Chronic pain of both knees - Primary M25.561, M25.562, G89.29 Relevant Medications naproxen (Naprosyn) 500 mg tablet diclofenac sodium (Voltaren) 1 % gel Other Relevant Orders XR knee right 3 views XR knee left 3 views XR femur left 2+ views Knee pain -Xrays ordered -Naproxen 500mg -Voltaren gel documented [facility] Work Phone: [phone] 315-196904-30-2024 History of Present illness Narrative* Kathryn Klein MD - 07/18/2023 11:10 AM EDTAssociated Order(s): Excision of Benign Lesion Post-Procedure Diagnose(s): Sebaceous cyst General Surgery Consultation Patient: Sae Kapadia : 1960 Date of Consultation: 07/18/23 Primary Care Provider: Isiah Harding PA-C Referring Provider: Chief Complaint: Enlarging painful sebaceous cyst of left posterior neck History of Present Illness: Sae Kapadia is a 62 y.o. old male seen with his for evaluation for excision of a enlarging painful sebaceous cyst on his left posterior neck. Patient has a history of metastatic prostate cancer and he has been stable for a bit. 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 Medical History: Past Medical History: Diagnosis Date Hypertension Prostate cancer (Multi) Surgical History: Past Surgical History: Procedure Laterality Date COLONOSCOPY 12/11/2017 DR GOODSON OTHER SURGICAL HISTORY 03/17/2022 No history of surgery Home Medications: Prior to Admission medications Medication Sig Start Date End Date Taking? Authorizing Provider calcium carbonate-vitamin D3 600 mg-5 mcg (200 unit) tablet Take 1 tablet by mouth once daily. Yes Historical Provider, denosumab (Xgeva) 120 mg/1.7 mL (70 mg/mL) injection Inject 1.7 mL (120 mg) under the skin every 3 months. Yes Historical Provider, enzalutamide (Xtandi) 80 mg tablet Take two (2) tablets (160mg total) by mouth once daily. 03/23/23 Yes leuprolide, 3 month, 22.5 mg injection Inject under the skin every 12 weeks. 02/01/23 Yes leuprolide, 3 month, 22.5 mg injection OFFICE TO INJECT 22.5MG INTRAMUSCULARLY ONCE EVERY 12 WEEKS DIRECTED. FOR [facility] ONLY 02/01/23 Yes losartan (Cozaar) 50 mg tablet TAKE 1 TABLET DAILY DIRECTED. 03/06/23 03/05/24 Yes Isiah Harding PA-C predniSONE (Deltasone) 5 mg tablet Take 2 tablets (10 mg) orally daily 02/08/23 Yes rOPINIRole (Requip) 0.25 mg tablet Take 1 tablet (0.25 mg) by mouth 3 times a day. 07/07/23 07/06/24 Yes Jayne Mcdonald DO rosuvastatin (Crestor) 10 mg tablet Take 1 tablet (10 mg) by mouth once daily at bedtime. 03/06/23 Yes Isiah Harding PA-C venlafaxine (Effexor) 37.5 mg tablet TAKE 1 TABLET BY MOUTH EVERY DAY 11/14/22 11/14/23 Yes abiraterone (Zytiga) 250 mg tablet TAKE FOUR (4) TABLETS BY MOUTH DAILY; MUST BE TAKEN ON EMPTY STOMACH, AT LEAST 1 HR BEFORE OR 2 HRS AFTER A MEAL/FOOD Patient not taking: Reported on 07/18/2023 08/08/22 08/08/23 Luis Cooney MD Allergies: No Known Allergies has No Known Allergies. Family History: Family History Problem Relation Name Age of Onset Hypertension Mother Other (Cerebrovascular Accident) Father Hypertension Father Prostate cancer Father Hypertension Sister Breast cancer Sister Hypertension Brother Prostate cancer Brother Breast cancer Paternal Grandmother Colon cancer Paternal Grandfather Social History: Does not smoke, drink or use drugs ROS: Constitutional: no fever, sweats, and chills Cardiovascular: No chest pain Respiratory: No cough or shortness of breath Gastrointestinal: Denies any change Genitourinary: no dysuria Musculoskeletal: no weakness or swelling Integumentary: no rashes Neurological: no confusion Endocrine: no heat or cold intolerance Heme/Lymph: no easy bruising or bleeding Objective: BP 136/84 Pulse 80 Ht 1.88 m (6' 2) Wt 89.3 kg (196 lb 12.8 oz) BMI 25.27 kg/m Physical Exam: Constitutional: No acute distress, conversant, pleasant Neurologic: alert and oriented Psych: appropriate affect Ears, Nose, Mouth and Throat: mucus membranes moist Pulmonary: No labored breathing Cardiovascular: Regular rate and rhythm Abdomen: soft, non-distended, non-tender Musculoskeletal: Moves all extremities, no edema Skin: warm and dry on his left posterior neck actually sort of onto his shoulders a 2 cm sebaceous cyst with punctum. Assessment and Plan: Sae Kapadia is a 62 y.o. old male with an enlarging painful sebaceous cyst onhis left posterior neck he wished to remove. We discussed the alternatives. He wished to have it excised here in the office. We discussed the procedure risks and potential complications including therisk of recurrence and wound infection. All questions were answered and he asked us to proceed. He will return to clinic in 2 weeks for suture removal although if his removes them they will simply call and let us know how the wound looks. Pathology was sent.Patient ID: Sae Kapadia is a 62 y.o. male. Excision of Benign Lesion Date/Time: 07/18/2023 12:24 PM Performed by: Kathryn Klein MD Authorized by: Kathryn Klein MD Consent: Consent obtained: Written Consent given by: Patient Risks, benefits, and alternatives were discussed: yes Risks discussed: Bleeding, infection, pain, poor cosmetic result and incomplete drainage [place] protocol: Procedure explained and questions answered to patient or proxy's satisfaction: yes Relevant documents present and verified: yes Site/side marked: yes Immediately prior to procedure, a time out was called: yes Patient identity confirmed: Verbally with patient Pre-procedure details: Skin preparation: Povidone-iodine Preparation: Patient was prepped and draped in the usual sterile fashion Sedation: Sedation type: None Anesthesia: Anesthesia method: Local infiltration Local anesthetic: Lidocaine 1% w/o epi Procedure specific details: An ellipse of skin was removed to include the punctum. The cyst ruptured and the contents were extruded and then the cyst wall was pulled out. The base was cauterized in case there is any residual cells left. Subcutaneous tissues were approximated using 4-0 Vicryl and the skin closed with 4-0 Prolene. Dressings were applied. Post-procedure details: Procedure completion: Tolerated well, no immediate complications . Kathryn Klein MD 07/18/2023 documented in this [facility] Work Phone: [phone] History of Present illness Narrative* Isiah Harding PA-C - 03/06/2023 10:30 AM EST Subjective Patient ID: Sae Kapadia is a 62 y.o. male who presents for Follow-up (FU 8 months, patient offers no complaints, labs were ordered patient forgot to get done./Colonoscopy done 5 years ago per patient.). HPI Patient presents in annual follow-up. Patient is requesting refills on several medications. Patient unfortunately forgot to get the follow-up lipid panel ordered back in June. Patient has no acute complaints Of note, patient suffered a left femur fracture after falling approximately 10 to 15 feet August 2022. Patient was seen and treated at [facility] went open intramedullary with interlocking screwsrepair, and did well postoperatively. Review of Systems Constitutional: See HPI Musculoskeletal: See HPI Neurologic: Alert and oriented X4, No numbness, No tingling. All other systems are negative Objective BP 145/83 Pulse 77 Ht 1.88 m (6' 2) Wt 91.1 kg (200 lb 14.4 oz) BMI 25.79 kg/m Physical Exam General: Alert and oriented, No acute distress. Eye: Pupils are equal, round and reactive to light, Extraocular movements are intact, Normal conjunctiva. HENT: Normocephalic, Normal hearing, Oral mucosa is moist, No pharyngeal erythema, No sinus tenderness. Neck: Supple, Non-tender, No lymphadenopathy. Respiratory: Lungs are clear to auscultation, Respirations are non-labored, Breath sounds are equal Cardiovascular: Normal rate, Regular rhythm. Gastrointestinal: Non-distended. Musculoskeletal: Normal range of motion, Normal strength, No tenderness, No swelling, No deformity,Normal gait. Integumentary: Warm, Dry, Intact, No pallor, No rash. Neurologic: Alert, Oriented, Normal sensory, Normal motor function, No focal deficits, Cranial Nerves II-XII are grossly intact Psychiatric: Cooperative, Appropriate mood & affect. Assessment/Plan Prostate cancer: Continue with oncology Hypertension: Continue losartan Restless leg: Continue Requip Dyslipidemia: Continue Crestor Anxiety/depression: Continue Effexor Prediabetes: A1c and TSH added to the pending lipids. Further recommendations pending results. A1c a year ago was 5.9. Problem List Items Addressed This Visit Prostate cancer ([facility]) - Primary Dyslipidemia Relevant Medications rosuvastatin (Crestor) 10 mg tablet Other Relevant Orders TSH with reflex to Free T4 if abnormal HTN (hypertension) Relevant Medications losartan (Cozaar) 50 mg tablet Other Relevant Orders TSH with reflex to Free T4 if abnormal Restless legs syndrome (RLS) Relevant Medications rOPINIRole (Requip) 0.25 mg tablet Other Visit Diagnoses Prediabetes Relevant Orders Hemoglobin A1C TSH with reflex to Free T4 if abnormal Final diagnoses: [C61] Prostate cancer (CMS/HCC) [G25.81] Restless legs syndrome (RLS) [E78.5] Dyslipidemia [I10] Primary hypertension [R73.03] Prediabetes documented in this [facility] Work Phone: [phone]) [phone] NoteHNO ID: [id number] Author: Johnson Zavala MD Service: ? Author Type: Physician Type: Progress Notes Filed: 12/01/2022 8:14 AM Note Text: ORTHOPAEDIC OFFICE NOTE CHIEF COMPLAINT: left hip injury HISTORY OF PRESENT ILLNESS: Sea Kapadia is a 62 year old male who presents for reevaluation after intramedullary nail placement left femur for subtrochanteric fracture 08/29/2022. He continues to ambulate and weight-bear as tolerated with no new symptoms. Denies pain in the groin or lateral thigh. No instability identified. No new injury mechanism. No recent fevers chills nausea or vomiting. Reviewed nursing note and current pain scale. PAST MEDICAL HISTORY Diagnosis Date - Cancer (HCC) - Hyperlipemia - Hypertension - Mitral valve disorders(424.0) History reviewed. No pertinent surgical history. FAMILY HISTORY Problem Relation Age of Onset - Hypertension Mother - Hypertension Father - Hypertension Sister - Hypertension Brother - Cancer Paternal Grandmother - other (ANURYSM [Other]) Maternal Grandmother - Heart Maternal Grandfather - Prostate Cancer Father Social History Tobacco Use - Smoking status: Never - Smokeless tobacco: Never Substance Use Topics - Alcohol use: Yes Comment: OCCASSIONAL SOCIALLY - Drug use: No MEDICATIONS: Current Outpatient Medications Medication Sig - FOLDING WALKER WITH 5 WHEELS 2 wheeled walker - ropinirole HCl (REQUIP ORAL) Take 0.5 mg by mouth twice daily. - rosuvastatin (CRESTOR) 10 mg tablet Take 10 mg by mouth once daily. - losartan (COZAAR) 50 mg tablet Take 50 mg by mouth once daily. - abiraterone 250 mg tablet Take 1,000 mg by mouth once daily. 250 mg x 4 tabs daily - predniSONE (DELTASONE) 5 mg tablet Take 5 mg by mouth once daily. 1 hour after abiraterone dose - venlafaxine (EFFEXOR) 37.5 mg tablet Take 37.5 mg by mouth once daily. - leuprolide acetate (LUPRON DEPOT INTRAMUSC.) Inject intramuscularly. - zoledronic acid (ZOMETA INTRAVENOUS) Inject intravenously. - NAPROXEN 500 MG TAB Take one(1) tablet twice daily as needed for pain, with food. No current facility-administered medications for this visit. ALLERGIES: ALLERGIES No Known Allergies PHYSICAL EXAMINATION: Resp 20 Ht 6' 2 (1.88m) Wt 198 lb 6.4 oz (90.0kg) BMI 25.46 kg/(m2). General Appearance: Well appearing, alert, in no acute distress, well-hydrated, well nourished. Skin: Skin color, texture, turgor normal, no suspicious rashes or lesions. Extremities: Left lower extremity with no new deformity. Left thigh and leg compartments soft and compressible. Left lower extremity length and rotation symmetric to contralateral side while seated. Passive left hip internal and external rotation demonstrates full smooth arc of motion and elicits no pain. No pain with axial load. Peripheral Pulses: Normal. Neurologic: Intact light touch sensation left lower extremity. IMAGES: Recent Results (from the past 36 hour(s)) XR FEMUR GENERAL 2V AP/LAT LEFT Narrative AP and lateral views left femur demonstrate no change in position of the intramedullary implant stabilizing the subtrochanteric femur fracture. Continued bone activity within the fracture region is evident. No new fracture identified. ASSESSMENT AND PLAN: 1. Closed displaced subtrochanteric fracture of left femur with routine healing, subsequent encounter - ICD9: V54.13, ICD10: S72.22XD Functional Plan: No restrictions with weightbearing or range of motion left lower extremity. Assistance Devices: None. Physical/Occupational Therapy: None, very active patient. Wound Care: None. Pain Control: No change in pain regimen recommended this office visit. Fragility Fracture: Previously addressed; atypical bisphosphonate fracture in context of high-energy fall. Additional: None. Follow-up in 12 weeks for likely final images. Johnson Zavala MD Medical Decision Making: Problems: Low: Stable chronic illness Data: Unique test result(s) reviewed: 1 Unique test(s) ordered: 1 Risk: Low: Low risk from testing/treatment Medical Decision Making Level: 3 - [facility]09-14-2023 History of Present illness Narrative* Johnson Zavala MD - 12/01/2022 8:02 AM EDT Images from the original note were not included. ORTHOPAEDIC OFFICE NOTE CHIEF COMPLAINT: left hip injury HISTORY OF PRESENT ILLNESS: Sae Kapadia is a 62 year old male who presents for reevaluation after intramedullary nail placement left femur for subtrochanteric fracture 08/29/2022. He continues to ambulate and weight-bear as tolerated with no new symptoms. Denies pain in the groin or lateral thigh. No instability identified. No new injury mechanism. No recent fevers chills nausea or vomiting. Reviewed nursing note and current pain scale. PAST MEDICAL HISTORY Diagnosis Date Cancer (HCC) Hyperlipemia Hypertension Mitral valve disorders(424.0) History reviewed. No pertinent surgical history. FAMILY HISTORY Problem Relation Age of Onset Hypertension Mother Hypertension Father Hypertension Sister Hypertension Brother Cancer Paternal Grandmother other (ANURYSM [Other]) Maternal Grandmother Heart Maternal Grandfather Prostate Cancer Father Social History Tobacco Use Smoking status: Never Smokeless tobacco: Never Substance Use Topics Alcohol use: Yes Comment: OCCASSIONAL SOCIALLY Drug use: No MEDICATIONS: Current Outpatient Medications Medication Sig FOLDING WALKER WITH 5 WHEELS 2 wheeled walker ropinirole HCl (REQUIP ORAL) Take 0.5 mg by mouth twice daily. rosuvastatin (CRESTOR) 10 mg tablet Take 10 mg by mouth once daily. losartan (COZAAR) 50 mg tablet Take 50 mg by mouth once daily. abiraterone 250 mg tablet Take 1,000 mg by mouth once daily. 250 mg x 4 tabs daily predniSONE (DELTASONE) 5 mg tablet Take 5 mg by mouth once daily. 1 hour after abiraterone dose venlafaxine (EFFEXOR) 37.5 mg tablet Take 37.5 mg by mouth once daily. leuprolide acetate (LUPRON DEPOT INTRAMUSC.) Inject intramuscularly. zoledronic acid (ZOMETA INTRAVENOUS) Inject intravenously. NAPROXEN 500 MG TAB Take one(1) tablet twice daily as needed for pain, with food. No current facility-administered medications for this visit. ALLERGIES: ALLERGIES No Known Allergies PHYSICAL EXAMINATION: Resp 20 Ht 6' 2 (1.88m) Wt 198 lb 6.4 oz (90.0kg) BMI 25.46 kg/(m^2). General Appearance: Well appearing, alert, in no acute distress, well-hydrated, well nourished. Skin: Skin color, texture, turgor normal, no suspicious rashes or lesions. Extremities: Left lower extremity with no new deformity. Left thigh and leg compartments soft and compressible. Left lower extremity length and rotation symmetric to contralateral side while seated. Passive left hip internal and external rotation demonstrates full smooth arc of motion and elicits no pain. No pain with axial load. Peripheral Pulses: Normal. Neurologic: Intact light touch sensation left lower extremity. IMAGES: Recent Results (from the past 36 hour(s)) XR FEMUR GENERAL 2V AP/LAT LEFT Narrative AP and lateral views left femur demonstrate no change in position of the intramedullary implant stabilizing the subtrochanteric femur fracture. Continued bone activity within the fracture region is evident. No new fracture identified. ASSESSMENT AND PLAN: 1. Closed displaced subtrochanteric fracture of left femur with routine healing, subsequent encounter - ICD9: V54.13, ICD10: S72.22XD Functional Plan: No restrictions with weightbearing or range of motion left lower extremity. Assistance Devices: None. Physical/Occupational Therapy: None, very active patient. Wound Care: None. Pain Control: No change in pain regimen recommended this office visit. Fragility Fracture: Previously addressed; atypical bisphosphonate fracture in context of high-energy fall. Additional: None. Follow-up in 12 weeks for likely final images. Johnson Zavala MD Medical Decision Making: Problems: Low: Stable chronic illness Data: Unique test result(s) reviewed: 1 Unique test(s) ordered: 1 Risk: Low: Low risk from testing/treatment Medical Decision Making Level: 3 - Low documented in this encounterC[facility]-22-2023 Miscellaneous Notes* Telephone Encounter - Maite Mac - 11/08/2022 10:31 AM EDT Called and spoke with the patient's and got the patient's appointment rescheduled for the first appointment of the day per the patient's 's request due to her work schedule. Maite Mac November 08, 2022 10:33 AM * Telephone Encounter - Maite Mac - 11/08/2022 10:31 AM EDT ----- Message from Maricruz Regan sent at 11/07/2022 8:36 AM EDT ----- Regarding: Orthopedics/DiNicola/ Reschedule Post Op -Left Femur Orthopedics/DiNicola/ Reschedule Post Op -Left Femur Patient has been identified by name and Date of (Y/N): Y Patient: Sae Kapadia Date of : 1960 Previous Provider Seen: Noreen Body Part(s) Identified: Left Femur Diagnosis/Reason For Visit: Post Op Reason for the call/escalation: Pt's requesting to reschedule to 12/02 or 12/05 because she is off on those days. She as to work on 12/01/22. If reason for call/escalation is discharge from ED/ER or Hospital, which facility was the patient seen at: na Was an appointment scheduled (Y/N): N-post op sx 08/29/22 Person calling if other than patient: Gee Conn Return call to if other than patient: senia mccracken Best contact number: [phone] Thank you, Maricruz Regan November 07, 2022 8:37 AM documented in this encounterCleveland Clinic [facility]08-03-2023 NoteHNO ID: [id number] Author: Johnson Zavala MD Service: ? Author Type: Physician Type: Progress Notes Filed: 10/20/2022 10:48 AM Note Text: ORTHOPAEDIC OFFICE NOTE CHIEF COMPLAINT: Left hip injury HISTORY OF PRESENT ILLNESS: Sae Kapadia is a 62 year old male who presents for reevaluation after intramedullary nail placement left femur for subtrochanteric fracture 08/29/2022. He has been weightbearing as tolerated on the left lower extremity, typically with a single crutch assist. Performing outpatient therapy after completion of in-home therapy. Notes minimal pain in the left hip and has been functionally progressing very well. No new injury mechanisms. No new chest pain or shortness of breath. No new fevers chills nausea or vomiting. Accompanied by . Reviewed nursing note and current pain scale. PAST MEDICAL HISTORY Diagnosis Date Cancer (HCC) Hyperlipemia Hypertension Mitral valve disorders(424.0) History reviewed. No pertinent surgical history. FAMILY HISTORY Problem Relation Age of Onset Hypertension Mother Hypertension Father Hypertension Sister Hypertension Brother Cancer Paternal Grandmother other (ANURYSM [Other]) Maternal Grandmother Heart Maternal Grandfather Prostate Cancer Father Social History Tobacco Use Smoking status: Never Smokeless tobacco: Never Substance Use Topics Alcohol use: Yes Comment: OCCASSIONAL SOCIALLY Drug use: No MEDICATIONS: Current Outpatient Medications Medication Sig FOLDING WALKER WITH 5 WHEELS 2 wheeled walker ropinirole HCl (REQUIP ORAL) Take 0.5 mg by mouth twice daily. rosuvastatin (CRESTOR) 10 mg tablet Take 10 mg by mouth once daily. losartan (COZAAR) 50 mg tablet Take 50 mg by mouth once daily. abiraterone 250 mg tablet Take 1,000 mg by mouth once daily. 250 mg x 4 tabs daily predniSONE (DELTASONE) 5 mg tablet Take 5 mg by mouth once daily. 1 hour after abiraterone dose venlafaxine (EFFEXOR) 37.5 mg tablet Take 37.5 mg by mouth once daily. leuprolide acetate (LUPRON DEPOT INTRAMUSC.) Inject intramuscularly. zoledronic acid (ZOMETA INTRAVENOUS) Inject intravenously. NAPROXEN 500 MG TAB Take one(1) tablet twice daily as needed for pain, with food. No current facility-administered medications for this visit. ALLERGIES: ALLERGIES No Known Allergies PHYSICAL EXAMINATION: Resp 18 Ht 6' 2 (1.88m) Wt 194 lb (88.0kg) BMI 24.90 kg/(m2). General Appearance: Well appearing, alert, in no acute distress, well-hydrated, well nourished. Skin: Skin color, texture, turgor normal, no suspicious rashes or lesions. Extremities: Left hip with no new deformity. Left thigh and leg compartments soft and compressible. No pain with passive left hip internal and external rotation, with smooth arc of motion. No pain with axial load. Ambulates with mild limp left side. Peripheral Pulses: Normal. Neurologic: Intact light touch sensation left lower extremity. IMAGES: Recent Results (from the past 36 hour(s)) XR FEMUR GENERAL 2V AP/LAT LEFT Narrative AP and lateral views left femur demonstrate no change in position of the intramedullary implant stabilizing the subtrochanteric femur fracture. There is evidence of early bone formation both medially and laterally about the traumatic stress fracture region. Alignment remains appropriate. No new fracture identified. ASSESSMENT AND PLAN: 1. Closed displaced subtrochanteric fracture of left femur with routine healing, subsequent encounter - ICD9: V54.13, ICD10: S72.22XD Functional Plan: No restrictions with weightbearing or range of motion left lower extremity. Assistance Devices: May wean crutch as tolerated. Physical/Occupational Therapy: Ongoing outpatient therapy. Wound Care: None. Pain Control: No change in pain regimen recommended this office visit. Fragility Fracture: Previously addressed. Additional: None. Return in about 6 weeks (around 12/01/2022). Johnson Zavala, [facility]08-03-2023 History of Present illness Narrative* Johnson Zavala MD - 10/20/2022 10:45 AM EDT Images from the original note were not included. ORTHOPAEDIC OFFICE NOTE CHIEF COMPLAINT: Left hip injury HISTORY OF PRESENT ILLNESS: Sae Kapadia is a 62 year old male who presents for reevaluation after intramedullary nail placement left femur for subtrochanteric fracture 08/29/2022. He has been weightbearing as tolerated on the left lower extremity, typically with a single crutch assist. Performing outpatient therapy after completion of in-home therapy. Notes minimal pain in the left hip and has been functionally progressing very well. No new injury mechanisms. No new chest pain or shortness of breath. No new fevers chills nausea or vomiting. Accompanied by . Reviewed nursing note and current pain scale. PAST MEDICAL HISTORY Diagnosis Date Cancer (HCC) Hyperlipemia Hypertension Mitral valve disorders(424.0) History reviewed. No pertinent surgical history. FAMILY HISTORY Problem Relation Age of Onset Hypertension Mother Hypertension Father Hypertension Sister Hypertension Brother Cancer Paternal Grandmother other (ANURYSM [Other]) Maternal Grandmother Heart Maternal Grandfather Prostate Cancer Father Social History Tobacco Use Smoking status: Never Smokeless tobacco: Never Substance Use Topics Alcohol use: Yes Comment: OCCASSIONAL SOCIALLY Drug use: No MEDICATIONS: Current Outpatient Medications Medication Sig FOLDING WALKER WITH 5 WHEELS 2 wheeled walker ropinirole HCl (REQUIP ORAL) Take 0.5 mg by mouth twice daily. rosuvastatin (CRESTOR) 10 mg tablet Take 10 mg by mouth once daily. losartan (COZAAR) 50 mg tablet Take 50 mg by mouth once daily. abiraterone 250 mg tablet Take 1,000 mg by mouth once daily. 250 mg x 4 tabs daily predniSONE (DELTASONE) 5 mg tablet Take 5 mg by mouth once daily. 1 hour after abiraterone dose venlafaxine (EFFEXOR) 37.5 mg tablet Take 37.5 mg by mouth once daily. leuprolide acetate (LUPRON DEPOT INTRAMUSC.) Inject intramuscularly. zoledronic acid (ZOMETA INTRAVENOUS) Inject intravenously. NAPROXEN 500 MG TAB Take one(1) tablet twice daily as needed for pain, with food. No current facility-administered medications for this visit. ALLERGIES: ALLERGIES No Known Allergies PHYSICAL EXAMINATION: Resp 18 Ht 6' 2 (1.88m) Wt 194 lb (88.0kg) BMI 24.90 kg/(m^2). General Appearance: Well appearing, alert, in no acute distress, well-hydrated, well nourished. Skin: Skin color, texture, turgor normal, no suspicious rashes or lesions. Extremities: Left hip with no new deformity. Left thigh and leg compartments soft and compressible.No pain with passive left hip internal and external rotation, with smooth arc of motion. No pain with axial load. Ambulates with mild limp left side. Peripheral Pulses: Normal. Neurologic: Intact light touch sensation left lower extremity. IMAGES: Recent Results (from the past 36 hour(s)) XR FEMUR GENERAL 2V AP/LAT LEFT Narrative AP and lateral views left femur demonstrate no change in position of the intramedullary implant stabilizing the subtrochanteric femur fracture. There is evidence of early bone formation both mediallyand laterally about the traumatic stress fracture region. Alignment remains appropriate. No new fracture identified. ASSESSMENT AND PLAN: 1. Closed displaced subtrochanteric fracture of left femur with routine healing, subsequent encounter - ICD9: V54.13, ICD10: S72.22XD Functional Plan: No restrictions with weightbearing or range of motion left lower extremity. Assistance Devices: May wean crutch as tolerated. Physical/Occupational Therapy: Ongoing outpatient therapy. Wound Care: None. Pain Control: No change in pain regimen recommended this office visit. Fragility Fracture: Previously addressed. Additional: None. Return in about 6 weeks (around 12/01/2022). Johnson Zavala MD documented in this encounterC[facility]06-29-2023 NoteHNO ID: [id number] Author: Johnson Zavala MD Service: ? Author Type: Physician Type: Progress Notes Filed: 09/18/2022 11:22 AM Note Text: ORTHOPAEDIC OFFICE NOTE CHIEF COMPLAINT: Left hip injury HISTORY OF PRESENT ILLNESS: Sae Kapadia is a 62 year old male who presents for postoperative evaluation after intramedullary nail placement left femur for subtrochanteric fracture 08/29/2022. He notes generally improved functional symptoms and has progressed to ambulating with crutches from walker at home. Pain has been well controlled. No new injury mechanism. No new fevers chills nausea or vomiting. No new chest pain or shortness of breath. Completed home physical therapy. Reviewed nursing note and current pain scale. PAST MEDICAL HISTORY Diagnosis Date Cancer (HCC) Hyperlipemia Hypertension Mitral valve disorders(424.0) History reviewed. No pertinent surgical history. FAMILY HISTORY Problem Relation Age of Onset Hypertension Mother Hypertension Father Hypertension Sister Hypertension Brother Cancer Paternal Grandmother other (ANURYSM [Other]) Maternal Grandmother Heart Maternal Grandfather Prostate Cancer Father Social History Tobacco Use Smoking status: Never Smokeless tobacco: Never Substance Use Topics Alcohol use: Yes Comment: OCCASSIONAL SOCIALLY Drug use: No MEDICATIONS: Current Outpatient Medications Medication Sig FOLDING WALKER WITH 5 WHEELS 2 wheeled walker enoxaparin (LOVENOX) 40 mg/0.4 mL Inject 0.4 mL subcutaneously q 24 HR for 20 doses. ropinirole HCl (REQUIP ORAL) Take 0.5 mg by mouth twice daily. rosuvastatin (CRESTOR) 10 mg tablet Take 10 mg by mouth once daily. losartan (COZAAR) 50 mg tablet Take 50 mg by mouth once daily. abiraterone 250 mg tablet Take 1,000 mg by mouth once daily. 250 mg x 4 tabs daily predniSONE (DELTASONE) 5 mg tablet Take 5 mg by mouth once daily. 1 hour after abiraterone dose venlafaxine (EFFEXOR) 37.5 mg tablet Take 37.5 mg by mouth once daily. leuprolide acetate (LUPRON DEPOT INTRAMUSC.) Inject intramuscularly. zoledronic acid (ZOMETA INTRAVENOUS) Inject intravenously. NAPROXEN 500 MG TAB Take one(1) tablet twice daily as needed for pain, with food. No current facility-administered medications for this visit. ALLERGIES: ALLERGIES No Known Allergies PHYSICAL EXAMINATION: Resp 20 Ht 6' 2 (1.88m) Wt 194 lb 6.4 oz (88.2kg) BMI 24.95 kg/(m2). General Appearance: Well appearing, alert, in no acute distress, well-hydrated, well nourished. Skin: Skin color, texture, turgor normal, no suspicious rashes or lesions. Extremities: Left thigh incisions healing well. Global improving edema left thigh and ankle. Left thigh and leg compartments soft and compressible. Passive left hip internal and external rotation demonstrates smooth arc of motion and no pain. No pain with axial load. Ambulatory with mild limp left side. Peripheral Pulses: Normal. Neurologic: Intact light touch sensation left lower extremity. IMAGES: Recent Results (from the past 36 hour(s)) XR FEMUR GENERAL 2V AP/LAT LEFT Narrative AP and lateral views left femur demonstrate no change in position of the intramedullary implant stabilizing the subtrochanteric femur fracture. Length and alignment appropriate with mild unchanged gapping within the region of stress reaction and acute fracture. No new fracture identified. ASSESSMENT AND PLAN: 1. Closed displaced subtrochanteric fracture of left femur with routine healing, subsequent encounter - ICD9: V54.13, ICD10: S72.22XD Functional Plan: Continue weightbearing and range of motion as tolerated left lower extremity, pain limited. 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 Assistance Devices: May transition from crutches to cane as tolerated. Physical/Occupational Therapy: Completed home therapy. Wound Care: Cleaned incisions and removed all Steri-Strips. Continue daily soap and water washes. Pain Control: No change in pain regimen recommended this office visit. Fragility Fracture: Held upcoming dose of Zometa; plan to return as recommended per oncologist for treatment of metastatic prostate disease. Additional: None. Return in about 5 weeks (around 10/20/2022). Johnson Zavala, [facility]06-29-2023 History of Present illness Narrative* Johnson Zavala MD - 09/15/2022 1:57 PM EDT Images from the original note were not included. ORTHOPAEDIC OFFICE NOTE CHIEF COMPLAINT: Left hip injury HISTORY OF PRESENT ILLNESS: Sae Kapadia is a 62 year old male who presents for postoperative evaluation after intramedullary nail placement left femur for subtrochanteric fracture 08/29/2022. He notes generally improved functional symptoms and has progressed to ambulating with crutches from walker at home. Pain has been well controlled. No new injury mechanism. No new fevers chills nausea or vomiting. No new chest pain or shortness of breath. Completed home physical therapy. Reviewed nursing note and current pain scale. PAST MEDICAL HISTORY Diagnosis Date Cancer (HCC) Hyperlipemia Hypertension Mitral valve disorders(424.0) History reviewed. No pertinent surgical history. FAMILY HISTORY Problem Relation Age of Onset Hypertension Mother Hypertension Father Hypertension Sister Hypertension Brother Cancer Paternal Grandmother other (ANURYSM [Other]) Maternal Grandmother Heart Maternal Grandfather Prostate Cancer Father Social History Tobacco Use Smoking status: Never Smokeless tobacco: Never Substance Use Topics Alcohol use: Yes Comment: OCCASSIONAL SOCIALLY Drug use: No MEDICATIONS: Current Outpatient Medications Medication Sig FOLDING WALKER WITH 5 WHEELS 2 wheeled walker enoxaparin (LOVENOX) 40 mg/0.4 mL Inject 0.4 mL subcutaneously q 24 HR for 20 doses. ropinirole HCl (REQUIP ORAL) Take 0.5 mg by mouth twice daily. rosuvastatin (CRESTOR) 10 mg tablet Take 10 mg by mouth once daily. losartan (COZAAR) 50 mg tablet Take 50 mg by mouth once daily. abiraterone 250 mg tablet Take 1,000 mg by mouth once daily. 250 mg x 4 tabs daily predniSONE (DELTASONE) 5 mg tablet Take 5 mg by mouth once daily. 1 hour after abiraterone dose venlafaxine (EFFEXOR) 37.5 mg tablet Take 37.5 mg by mouth once daily. leuprolide acetate (LUPRON DEPOT INTRAMUSC.) Inject intramuscularly. zoledronic acid (ZOMETA INTRAVENOUS) Inject intravenously. NAPROXEN 500 MG TAB Take one(1) tablet twice daily as needed for pain, with food. No current facility-administered medications for this visit. ALLERGIES: ALLERGIES No Known Allergies PHYSICAL EXAMINATION: Resp 20 Ht 6' 2 (1.88m) Wt 194 lb 6.4 oz (88.2kg) BMI 24.95 kg/(m^2). General Appearance: Well appearing, alert, in no acute distress, well-hydrated, well nourished. Skin: Skin color, texture, turgor normal, no suspicious rashes or lesions. Extremities: Left thigh incisions healing well. Global improving edema left thigh and ankle. Left thigh and leg compartments soft and compressible. Passive left hip internal and external rotation demonstrates smooth arc of motion and no pain. No pain with axial load. Ambulatory with mild limp left side. Peripheral Pulses: Normal. Neurologic: Intact light touch sensation left lower extremity. IMAGES: Recent Results (from the past 36 hour(s)) XR FEMUR GENERAL 2V AP/LAT LEFT Narrative AP and lateral views left femur demonstrate no change in position of the intramedullary implant stabilizing the subtrochanteric femur fracture. Length and alignment appropriate with mild unchanged gapping within the region of stress reaction and acute fracture. No new fracture identified. ASSESSMENT AND PLAN: 1. Closed displaced subtrochanteric fracture of left femur with routine healing, subsequent encounter - ICD9: V54.13, ICD10: S72.22XD Functional Plan: Continue weightbearing and range of motion as tolerated left lower extremity, painlimited. 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 Assistance Devices: May transition from crutches to cane as tolerated. Physical/Occupational Therapy: Completed home therapy. Wound Care: Cleaned incisions and removed all Steri-Strips. Continue daily soap and water washes. Pain Control: No change in pain regimen recommended this office visit. Fragility Fracture: Held upcoming dose of Zometa; plan to return as recommended per oncologist for treatment of metastatic prostate disease. Additional: None. Return in about 5 weeks (around 10/20/2022). Johnson Zavala MD documented in this encounterCleveland [facility]06-20-2023 Miscellaneous Notes* Telephone Encounter - Maite Mac - 09/06/2022 10:08 AM EDT Called and spoke with the patient's . Got the patient scheduled. Maite Mac September 06, 2022 10:09 AM * Telephone Encounter - Maite Mac - 09/06/2022 10:07 AM EDT ----- Message from Maddie Oliver sent at 09/02/2022 9:49 AM EDT ----- Regarding: Ortho- Dinicola-Hip Post Op Subject Line Format: Orthopedics / [Provider Name or Open & Body Part] / [Issue] Patient has been identified by name and Date of (Y/N): y Patient: Sae Kapadia Date of : 1960 Previous Provider Seen: dinicola Body Part(s) Identified: femur Diagnosis/Reason For Visit: post op 2 weeks Reason for the call/escalation: post op 2 weeks- patients is aware dinicola will be out and will see someone else If reason for call/escalation is discharge from ED/ER or Hospital, which facility was the patient seen at: n/a Was an appointment scheduled (Y/N): n/a Person calling if other than patient: Return call to if other than patient: - Senia Best contact number: [phone] Thank you, Maddie Oliver September 02, 2022 9:49 AM documented in this encounterCleveland Clinic [facility]06-15-2023 NoteHNO ID: [id number] Author: Alaina Scott APRN.SOIL CONSERVATIONIST Service: Orthopaedic Surgery Author Type: Nurse Practitioner Type: Progress Notes Filed: 09/05/2022 11:22 AM Note Text: Documentation Query Based on your medical judgment of the clinical indicators outlined below, please clarify the condition: (Please type X next to your response and sign) Clinical Indicators: 08/28 History and physical He does state that he has metastatic prostate cancer in his lymph nodes and bones. 09/01 Sound progress note Anemia Hgb 12.8>12.0>10.2>9.7 Possibly postoperative but dilution possibly contributing as well Hold IVF as above Monitor closely for evidence of bleeding Monitor CBC daily Transfuse for hemoglobin <7, per primary 09/01 Discharge summary Relevant labs included: Hemoglobin (g/dL) Date Value 08/31/2022 10.2 (L) 08/30/2022 12.0 (L) 08/29/2022 12.8 (L) Please clarify type of anemia Due to Neoplastic Disease X Acute Blood Loss Dilution Other, please specify [facility]06-15-2023 Note HNO ID: [id number] Author: María Taylor RN Service: Care Management Author Type: Registered Nurse Type: Care Mgt Progress Note Filed: 09/01/2022 12:22 PM Note Text: CARE MANAGEMENT DISCHARGE NOTE SERVICE DATE: September 01, 2022 SERVICE TIME: 1218 Admission Date: 08/28/2022 LOS: 4 days Discharge Arrangement Discharge Arrangement: Home with Home Health Services Arranged Medical Services: Skilled Home Health Care Type: Physical Therapy Provider Name: [facility] Caregiver Assessment Transportation Arrangements Transportation Arrangements: Car Date of Trip: 09/01/22 Destination: home address Handoff Communication: Additional Information: Discussed with patient and accepting home care agencies [facility] and [facility] home health unable to accept. .Both [place] and home care verified they can accept the employee anthem plan. Agency of choice is [facility] home [facility]. Agency notified of discharge today and will contact patient regarding SOC date. will transport home. Discharge Information Row Name ED to Hosp-Admission (Current) from 08/28/[address] [facility] Agency [facility] SIGNATURE: María Taylor RN PATIENT NAME: Sae Kapadia DATE: September 01, 2022 TIME: 12:18 PM CONTACT #: [phone] NoteHNO ID: [id number] Author: Alaina Scott APRN.CHRISTIANO Service: Orthopaedic Surgery Author Type: Nurse Practitioner Type: Plan of Care Filed: 09/01/2022 9:36 AM Note Text: Labs reviewed: potassium 3.5 Hypokalemia- -replace and monitorNorthern Light [facility]06-15-2023 NoteHNO ID: [id number] Author: Duncan Echeverria DO Service: Hospital Medicine Author Type: Physician Type: Progress Notes Filed: 09/01/2022 10:15 AM Note Text: DEPARTMENT OF HOSPITAL MEDICINE CONSULT PROGRESS NOTE Hospital Medicine/Primary Attending: Duncan Echeverria, NIGHT AND WEEKEND COVERAGE: After 7pm please page [phone] SUBJECTIVE: Pt seen and examined. Patient resting in bed in no acute distress. Nurse at bedside. Reports good appetite. Denies chest pain, palpations, orthopnea, shortness of breath, cough, fever, chills, nausea, vomiting, diarrhea, numbness, tingling, dizziness, polyuria, dysuria, hematuria, bruising, bleeding, weakness, confusion, blurred vision, double vision OBJECTIVE: PHYSICAL EXAM: BP 119/74 Pulse 86 Temp (Src) 98.2 (Oral) Resp 17 Ht 6' 2 (1.88m) Wt 210 lb 15.7 oz (95.7kg) SpO2 96% BMI 27.08 kg/(m2). O2 Therapy: Room Air General - AANDOx3, NAD, Calm CV - RRR S1 S2, No M/R/G RESP - CTA B/L No wheezes, ronchi, rales ABD - soft, NT, ND +BS EXT -left lower extremity dressing C/D/I. Compartments soft, compressible NEURO - CN II-XII grossly intact, no focal deficits MEDICATIONS: Current Facility-Administered Medications Medication Dose Route Frequency rosuvastatin 10 mg tab(s) (CRESTOR) 10 mg ORAL DAILY losartan 50 mg tab(s) (COZAAR) 50 mg ORAL DAILY morphine 2 mg injection 2 mg INTRAVENOUS q 2 H PRN ondansetron (PF) 4 mg injection (ZOFRAN) 4 mg INTRAVENOUS q 6 H PRN melatonin 3 mg tab(s) 3 mg ORAL AT BEDTIME PRN NaCl 0.9% iv flush bag 20 mL INTRAVENOUS PRN oxyCODONE IR 5-10 mg tab(s) (ROXICODONE) 5-10 mg ORAL q 4 H PRN acetaminophen 650 mg tab(s) (TYLENOL) 650 mg ORAL q 6 H venlafaxine 37.5 mg tab(s) (EFFEXOR) 37.5 mg ORAL DAILY cyclobenzaprine 5 mg tab(s) (FLEXERIL) 5 mg ORAL TID PRN prochlorperazine 5 mg injection (COMPAZINE) 5 mg INTRAVENOUS q 6 H PRN enoxaparin 40 mg injection (LOVENOX) 40 mg SUBCUTANEOUS q 24 HR abiraterone 1,000 mg tab(s) 1,000 mg ORAL DAILY predniSONE 5 mg tab(s) (DELTASONE) 5 mg ORAL DAILY DATA: Diagnostic tests reviewed for today's visit: CBC: Recent Labs 09/01/22216 WBC 5.52 RBC 3.18* HB 9.7* HCT 28.3* PLT 176 MCV 89.0 MCH 30.5 MPV 9.9 Coags: No results for input(s): PT, INR, APTT in the last 24 hours. BMP: Recent Labs 09/01/22216 NA 134* K 3.5* CHLOR 100 CO2 25 BUN 17 CREAT 0.69* GLUC 111* CMP: Recent Labs 09/01/22216 NA 134* K 3.5* CHLOR 100 CO2 25 BUN 17 CREAT 0.69* GLUC 111* CA 7.8* ANION 9 Cardiac Enzymes: No results for input(s): CK, MB, CKMB, TROPT in the last 24 hours. Liver Function, Amylase, Lipase: No results for input(s): TPROT, ALB, ALT, AST, ALKPHOS, TBILI, AMYLASE, LIPASE, LACTATE in the last 24 hours. MG/PHOS: No results for input(s): MG, P in the last 24 hours. Renal Panel: Recent Labs 09/01/22216 CREAT 0.69* BUN 17 GLUC 111* CA 7.8* CHLOR 100 K 3.5* CO2 25 NA 134* Heme: No results for input(s): RETICP, ABSRETIC, LD, HADLEY, FE, TIBC, TRANSFERSAT in the last 24 hours. No results found for: UALBCR Estimated Creatinine Clearance: 132.4 mL/min (A) (based on SCr of 0.69 mg/dL (L)). Assessment/Plan Patient Active Hospital Problem List: Subtrochanteric fracture of left femur, closed, initial encounter ([facility]) (08/28/2022) Hypertension (08/29/2022) Cancer ([facility]) (08/29/2022) Subtrochanteric fracture left femur Reports pain is well controlled PT OT recommending SNF Per primary Hypertension Blood pressure currently well controlled Continue losartan 50 mg daily Hypokalemia K3.5 20 mEq K Replace K, mag as needed Hyponatremia Na 136>133 Possibly due to IVF Discontinue lactated ringers 150ml/hr Monitor and consider resuming at lower dose Hyperlipidemia Chronic steroid use Continue home prednisone 5 mg daily Monitor closely for setting of adrenal insufficiency given recent surgery Anemia Hgb 12.8>12.0>10.2>9.7 Possibly postoperative but dilution possibly contributing as well Hold IVF as above Monitor closely for evidence of bleeding Monitor CBC daily Transfuse for hemoglobin <7, per primary Prostate cancer On prednisone 5 mg daily chronically Continue prednisone 5 mg daily, abiraterone 1000mg daily Medication and Non-Pharmacologic VTE Prophylaxis/Anticoagulants Anticoagulant AND Antiplatelet Medications (From admission, onward) Start Dose Route Frequency Last Action Ordered Stop 08/30/22 0900 enoxaparin 40 mg injection (LOVENOX) (enoxaparin injection (LOVENOX)) 40 mg SUBCUTANEOUS EVERY 24 HOURS Given, 08/31 0816 08/29/22 1341 09/20/22 0859 08/28/22 2300 vte pharmacologic prophylaxis contraindicated (il,oh) 08/28/22 2300 pneumatic compression stockings (il,wy) Lines, Drains, and Airways Line Duration Peripheral 08/28/22 2100 Admission to Hospital Short Left Antecubital 18 Gauge 3 days Peripheral 08/28/22 2100 Admission to Hospital Short Right Forea (more content not included)...[facility]06-15-2023 NoteHNO ID: [id number] Author: Digna Foy MD Service: Orthopaedic Surgery Author Type: Resident Type: Progress Notes Filed: 09/01/2022 6:29 AM Note Text: ORTHOPAEDIC SURGERY DAILY PROGRESS NOTE ASSESSMENT: 61 yo male POD#4 s/p IMN left femur PLAN: -Management per Orthopedics -Mepilex dressings left thigh: maintain x 10 days -PT/OT -Flexeril PRN -DVT PPX: Lovenox 40 daily x 21 days; SCDs -Post-Operative Antibiotics: Ancef 2g q8H x 2 doses -HGB 9.7 from 10.2 - monitor, transfuse if less than 7. -Ice to the thigh; elevation of the left lower extremity -Pain control -Disposition: Patient improving with PT/OT. PT now recommending home PT. INTERVAL HPI: No acute events overnight. Pain controlled. Patient reports to overall be feeling well. OBJECTIVE: BP 122/60 Pulse 92 Temp 37.6 ?C (99.7 ?F) (Oral) Resp 16 Ht 188 cm (6' 2) Wt 95.7 kg (210 lb 15.7 oz) SpO2 93% BMI 27.09 kg/m? Exam: General: NAD, AOx3 Left Lower Extremity: ~50% saturation to dressing. Dressing is intact. There is minimal tenderness to palpation about the incision site. Compartments of the thigh and leg are soft and compressible. The patient tolerates passive stretch of the digits. +DF/PF/EHL. SILT mcdonough/sa/sp/dp/t. BCR of the digits of the foot. Recent Labs 09/01/22 0217 08/31/22 0026 08/30/22 0109 CREAT 0.69* 0.72* 0.79 BUN 17 15 18 NA 134* 133* 136 K 3.5* 3.5* 3.9 CHLOR 100 100 101 CO2 25 26 25 ANION 9 7* 10 GLUC 111* 114* 141* CA 7.8* 7.4* 8.0* WBC 5.52 4.96 5.25 HB 9.7* 10.2* 12.0* HCT 28.3* 30.8* 35.8* PLT 176 165 187 COAGS: APTT 27.3 08/29/2022 INR 1.0 08/29/2022 SED RATE/CRP: No results found for this basename: wsr:*,crp:* Imaging: SHON Foy MD Orthopaedic Surgery 09/01/2022 6:42 [facility]06-14-2023 NoteHNO ID: [id number] Author: María Taylor RN Service: Care Management Author Type: Registered Nurse Type: Care Mgt Progress Note Filed: 08/31/2022 2:54 PM Note Text: CARE MANAGEMENT PROGRESS NOTE SERVICE DATE: 08/31/2022 SERVICE TIME: 1452 LOS: 3 days Met with patient and at bedside. Confirmed discharge plan is home with home Pt and not SNF. Discussed with them due to insurance [employer] Employee may need to use [facility] home health. Confirmed he does have a PCP. Home care referral sent SIGNATURE: María Taylor RN PATIENT NAME: Sae Kapadia DATE: August 31, 2022 TIME: 2:52 PM PAGER/CONTACT #: [phone] 08-31-2022 Miscellaneous Notes* Telephone Encounter - Mony Galvan - 08/31/2022 3:21 PM EDT Welcome Home Call: a. Date and Time: 3:21 PM 08/31/2022 b. Contact name/relationship: Senia Kapadia (Spouse) [phone] (Home Phone) c. Have you been active with any Home Care company in the last 60 days(such as help with bathing, filling medications, checking your blood pressure) ? No. d. [facility] will be providing your care, are you agreeable to starting these services? yes (yes or no) e. Do you have any upcoming appointments in the next few days, or restrictions to your schedule? Not sure f. Caregiver: Patient is able to manage care independently g. Confirmed Visited Location and preferred #: yes Please keep our your medications both over the counter and prescribed out for the home care to review, your hospital discharge instructions and write down any questions you might have. In order to maintain a safe environment for our caregivers, [facility] requires anyanimals or weapons present in the home be located in a secured location. Our clinicians will call you the night before or the morning of the appointment. Their # may come up restricted but they'll leave a VM for you. In case you have any questions or concerns in the meantime, our # is [phone], option 5 Thank you for your time and have a great day. Mony Galvan Gliding Pilot Instructor documented in this encounterC[facility]06-14-2023 NoteHNO ID: [id number] Author: Duncan Echeverria DO Service: Hospital Medicine Author Type: Physician Type: Progress Notes Filed: 08/31/2022 11:53 AM Note Text: DEPARTMENT OF HOSPITAL MEDICINE CONSULT PROGRESS NOTE Hospital Medicine/Primary Attending: Duncan Echeverria DO NIGHT AND WEEKEND COVERAGE: After 7pm please page [phone] SUBJECTIVE: Pt seen and examined. Patient resting in bed in no acute distress. Reports good appetite. Denies chest pain, palpations, orthopnea, shortness of breath, cough, fever, chills, nausea, vomiting, diarrhea, numbness, tingling, dizziness, polyuria, dysuria, hematuria, bruising, bleeding, weakness, confusion, blurred vision, double vision OBJECTIVE: PHYSICAL EXAM: BP 125/69 Pulse 104 Temp (Src) 98.6 (Oral) Resp 17 Ht 6' 2 (1.88m) Wt 210 lb 15.7 oz (95.7kg) SpO2 93% BMI 27.08 kg/(m2). O2 Therapy: Room Air General - AANDOx3, NAD, Calm CV - RRR S1 S2, No M/R/G RESP - CTA B/L No wheezes, ronchi, rales ABD - soft, NT, ND +BS EXT -left lower extremity dressing C/D/I. Compartments soft, compressible NEURO - CN II-XII grossly intact, no focal deficits MEDICATIONS: Current Facility-Administered Medications Medication Dose Route Frequency rosuvastatin 10 mg tab(s) (CRESTOR) 10 mg ORAL DAILY losartan 50 mg tab(s) (COZAAR) 50 mg ORAL DAILY lactated ringers iv infusion 150 mL/hr INTRAVENOUS CONTINUOUS morphine 2 mg injection 2 mg INTRAVENOUS q 2 H PRN ondansetron (PF) 4 mg injection (ZOFRAN) 4 mg INTRAVENOUS q 6 H PRN melatonin 3 mg tab(s) 3 mg ORAL AT BEDTIME PRN NaCl 0.9% iv flush bag 20 mL INTRAVENOUS PRN oxyCODONE IR 5-10 mg tab(s) (ROXICODONE) 5-10 mg ORAL q 4 H PRN acetaminophen 650 mg tab(s) (TYLENOL) 650 mg ORAL q 6 H venlafaxine 37.5 mg tab(s) (EFFEXOR) 37.5 mg ORAL DAILY cyclobenzaprine 5 mg tab(s) (FLEXERIL) 5 mg ORAL TID PRN prochlorperazine 5 mg injection (COMPAZINE) 5 mg INTRAVENOUS q 6 H PRN enoxaparin 40 mg injection (LOVENOX) 40 mg SUBCUTANEOUS q 24 HR abiraterone 1,000 mg tab(s) 1,000 mg ORAL DAILY predniSONE 5 mg tab(s) (DELTASONE) 5 mg ORAL DAILY DATA: Diagnostic tests reviewed for today's visit: CBC: Recent Labs 08/31/22 0026 WBC 4.96 RBC 3.43* HB 10.2* HCT 30.8* PLT 165 MCV 89.8 MCH 29.7 MPV 9.8 Coags: No results for input(s): PT, INR, APTT in the last 24 hours. BMP: Recent Labs 08/31/22 0026 NA 133* K 3.5* CHLOR 100 CO2 26 BUN 15 CREAT 0.72* GLUC 114* CMP: Recent Labs 08/31/22 0026 NA 133* K 3.5* CHLOR 100 CO2 26 BUN 15 CREAT 0.72* GLUC 114* CA 7.4* ANION 7* Cardiac Enzymes: No results for input(s): CK, MB, CKMB, TROPT in the last 24 hours. Liver Function, Amylase, Lipase: No results for input(s): TPROT, ALB, ALT, AST, ALKPHOS, TBILI, AMYLASE, LIPASE, LACTATE in the last 24 hours. MG/PHOS: No results for input(s): MG, P in the last 24 hours. Renal Panel: Recent Labs 08/31/22 0026 CREAT 0.72* BUN 15 GLUC 114* CA 7.4* CHLOR 100 K 3.5* CO2 26 NA 133* Heme: No results for input(s): RETICP, ABSRETIC, LD, HADLEY, FE, TIBC, TRANSFERSAT in the last 24 hours. No results found for: UALBCR Estimated Creatinine Clearance: 126.9 mL/min (A) (based on SCr of 0.72 mg/dL (L)). Assessment/Plan Patient Active Hospital Problem List: Subtrochanteric fracture of left femur, closed, initial encounter ([facility]) (08/28/2022) Hypertension (08/29/2022) Cancer ([facility]) (08/29/2022) Subtrochanteric fracture left femur Reports pain is well controlled PT OT recommending SNF Per primary Hypertension Blood pressure currently well controlled Continue losartan 50 mg daily Hypokalemia K3.5 20 mEq K Replace K, mag as needed Hyponatremia Na 136>133 Possibly due to IVF Discontinue lactated ringers 150ml/hr Monitor and consider resuming at lower dose Hyperlipidemia Chronic steroid use Continue home prednisone 5 mg daily Monitor closely for setting of adrenal insufficiency given recent surgery Anemia Hgb 12.8>12.0>10.2 Possibly postoperative but dilution possibly contributing as well Hold IVF as above Monitor closely for evidence of bleeding Monitor CBC daily Transfuse for hemoglobin <7, per primary Prostate cancer On prednisone 5 mg daily chronically Continue prednisone 5 mg daily, abiraterone 1000mg daily Medication and Non-Pharmacologic VTE Prophylaxis/Anticoagulants Anticoagulant AND Antiplatelet Medications (From admission, onward) Start Dose Route Frequency Last Action Ordered Stop 08/30/22 0900 enoxaparin 40 mg injection (LOVENOX) (enoxaparin injection (LOVENOX)) 40 mg SUBCUTANEOUS EVERY 24 HOURS Given, 08/30 0817 08/29/22 1341 09/20/22 0859 08/28/22 2300 vte pharmacologic prophylaxis contraindicated (il,oh) 08/28/22 2300 pneumatic compression stockings ([place]) Lines, Drains, and Airways Line Duration Peripheral 08/28/22 2100 Admission to Hospital Short Left Antecubital 18 Gauge 2 days Peripheral 08/28/22 2 (more content not included)...[facility] 08-31-2022 NoteHNO ID: [id number] Author: Digna Foy MD Service: Orthopaedic Surgery Author Type: Resident Type: Progress Notes Filed: 08/31/2022 6:30 AM Note Text: ORTHOPAEDIC SURGERY DAILY PROGRESS NOTE ASSESSMENT: 61 yo male POD#2 s/p IMN left femur PLAN: -Management per Orthopedics -Mepilex dressings left thigh: maintain x 10 days -PT/OT -Flexeril PRN -DVT PPX: Lovenox 40 daily x 21 days; SCDs -Post-Operative Antibiotics: Ancef 2g q8H x 2 doses -Ice to the thigh; elevation of the left lower extremity -Pain control -Disposition: PT/OT recommending Subacute/ SNF INTERVAL HPI: No acute events overnight. Pain controlled. Having some muscle spasms in operative thigh. Otherwise, doing well this morning. Amendable to SNF at discharge. OBJECTIVE: BP 125/69 Pulse 104 Temp 37 ?C (98.6 ?F) (Oral) Resp 17 Ht 188 cm (6' 2) Wt 95.7 kg (210 lb 15.7 oz) SpO2 90% BMI 27.09 kg/m? Exam: General: NAD, AOx3 Left Lower Extremity: Dressing dry, clean and intact. There is minimal tenderness to palpation about the incision site. Compartments of the thigh and leg are soft and compressible. The patient tolerates passive stretch of the digits. +DF/PF/EHL. SILT mcdonough/sa/sp/dp/t. BCR of the digits of the foot. Recent Labs 08/31/22 0026 08/30/22 0109 08/29/22 0018 08/28/22 1642 CREAT 0.72* 0.79 0.69* 0.91 BUN 15 18 21 24 NA 133* 136 138 141 K 3.5* 3.9 3.7 4.0 CHLOR 100 101 102 103 CO2 26 25 23 24 ANION 7* 10 13 14 GLUC 114* 141* 149* 189* CA 7.4* 8.0* 9.2 9.2 ALB -- -- -- 4.2 AST -- -- -- 25 ALT -- -- -- 22 ALKPHOS -- -- -- 51 TBILI -- -- -- 0.4 WBC 4.96 5.25 9.34 5.58 HB 10.2* 12.0* 12.8* 13.8 HCT 30.8* 35.8* 38.0* 41.3 PLT 165 187 186 198 COAGS: APTT 27.3 08/29/2022 INR 1.0 08/29/2022 SED RATE/CRP: No results found for this basename: wsr:*,crp:* Imaging: SHON Foy MD Orthopaedic Surgery 08/30/2022 6:42 [facility]06-13-2023 NoteHNO ID: [id number] Author: María Taylor RN Service: Care Management Author Type: Registered Nurse Type: Care Mgt Initial Assessment Filed: 08/30/2022 12:06 PM Note Text: CARE MANAGEMENT: ASSESSMENT AND DISCHARGE PLAN SERVICE DATE: August 30, 2022 SERVICE TIME: 1124 PCP: Pura Beckman MD Primary Contact: Extended Emergency Contact Information Primary Emergency Contact: Senia Kapadia Relation: Spouse Admission Status: Inpatient Insurance Provider: [employer] Discharge Planning requested by: Per Department Practice Potential Transition Plans Home OT/PT;Mcfp Facility/Intermediate Care Facility Advance Directives Current Advance Directive: Health Care Power of Chefs In Chart: No Current Living Arrangements and Support Lives with: Spouse/significant other Type of Residence: Private Residence (House) Does the patient have to climb stairs at home?: Yes;stairs outside the home Support: Spouse/significant other How do you manage to accomplish the following: Independent: Ambulation;Bathe/Shower;Dress;Meals/Meal Prep;Going to the bathroom;Medication Management;Transportation to appointments/community Current Services/Equipment Current Post-Acute Service(s): None Discharge Planning Patient Goal(s): Better mobility, Less pain [place] of Choice Explained: [place] of Choice Given: Yes Level of Care Discussed: [facility] Facility Are you interested in bedside delivery of your medications? No Discharge Planning Participant(s): Spouse/significant other Patient/Family Comments: Caregiver Assessment: Caregiver is ready, willing and able to meet the patient's needs as recommended by the inter-professional team: Yes Name of Caregiver: gee Conn Transport at Discharge: Needs Prior to Discharge: Needs Prior to Discharge: Facility or Agency Choices;Insurance Authorization Post-Acute Discharge Plan: Met with patient and at bedside. Prior to admission independent with care. Ambulated without assistance. 4 steps into home. Discussed discharge options home with home PT vs SNF. Patient hoping to go home but if does not make progress with PT then agreeable to SNF. [facility] care agency of choice. Will need script for a wheeled walker. SIGNATURE: María Taylor RN PATIENT NAME: Sae Kapadia DATE: August 30, 2022 TIME: 12:01 PM CONTACT #: [phone] NoteHNO ID: [id number] Author: Michelle Avina DO Service: Hospital Medicine Author Type: Physician Type: Progress Notes Filed: 08/30/2022 10:09 AM Note Text: DEPARTMENT OF HOSPITAL MEDICINE PROGRESS NOTE SERVICE DATE: 08/30/2022 SERVICE TIME: 7:10 AM Hospital Medicine/Primary Attending: Michelle Avina DO NIGHT AND WEEKEND COVERAGE: [place] COVERAGE: After 7pm, please call cross cover pager #[phone] Subjective INTERVAL HPI: Patient seen and examined. No acute events overnight. Denies fever, chills. States he feels very well and better than yesterday .Denies pain, CP, SOB. Ate last night. at bedside. Hoping to go home. MEDICATIONS: Reviewed Objective PHYSICAL EXAM: BP 115/69 Pulse 100 Temp (Src) 97.9 (Oral) Resp 18 Ht 6' 2 (1.88m) Wt 210 lb 15.7 oz (95.7kg) SpO2 94% BMI 27.08 kg/(m2). O2 Therapy: Room Air Physical Exam Performed Constitutional - Vitals as above, not in acute distress Resp - Clear to auscultate both sides, no wheezes, crackles or rales, no labored breathing CVS- RRR. 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 Problem List Subtrochanteric fracture of left femur, closed, initial encounter ([facility]) POA: Yes Hypertension POA: Status not on file Cancer (HCC) POA: Status not on file Assessment/Plan # Subtrochanteric fracture of left femur, on bisphosphonate and h/o metastatic prostate cancer-pain control and management as per ortho #metastatic prostate ca #HTN-on losartan #HLD-on crestor 10 mg #prostate ca-can resume home meds, recommend resume home prednisone at home dosing Patient medically stable at this time. Thanks for the consult. Please call with questions. Medication and Non-Pharmacologic VTE Prophylaxis/Anticoagulants Anticoagulant AND Antiplatelet Medications (From admission, onward) Start Dose Route Frequency Last Action Ordered Stop 08/30/22 0900 enoxaparin 40 mg injection (LOVENOX) (enoxaparin injection (LOVENOX)) 40 mg SUBCUTANEOUS EVERY 24 HOURS Given, 08/30 0817 08/29/22 1341 09/20/22 0859 08/28/22 2300 vte pharmacologic prophylaxis contraindicated (fl,oh) 08/28/22 2300 pneumatic compression stockings ([place]) VTE Prophylaxis: VTE prophylaxis appropriate Disposition: To be determined Plan of care discussed with: Provider, RN, Patient SIGNATURE: Michelle Avina DO PATIENT NAME: Sae Kapadia DATE: August 30, 2022 TIME:7:10 AM etx [id number] [facility] NoteHNO ID: [id number] Author: Johnson Zavala MD Service: Orthopaedic Surgery Author Type: Physician Type: Progress Notes Filed: 08/30/2022 9:43 AM Note Text: ORTHOPAEDIC SURGERY DAILY PROGRESS NOTE ORTHO STAFF: Patient seen and examined. Agree with resident assessment and plan noted below. Post-op films okay, reviewed in detail with patient and . Reviewed progression with therapy and pain control with goal of home discharge. Discussed follow-up plan, wound management, and recommendation to hold zoledronic acid treatment in September; his oncology plan is all managed at [facility]. While he had stress reaction in the proximal femur where fracture occurred, it was due to high energy mechanism during fall from height. Johnson Zavala MD ASSESSMENT: 61 yo male POD#1 s/p IMN left femur PLAN: -Management per Orthopedics -Mepilex dressings left thigh: maintain x 10 days -PT/OT -DVT PPX: Lovenox 40 daily x 21 days; SCDs -Post-Operative Antibiotics: Ancef 2g q8H x 2 doses -Ice to the thigh; elevation of the left lower extremity -Pain control -Disposition: pending PT/OT INTERVAL HPI: No acute events overnight. Pain controlled. Patient doing well this morning. OBJECTIVE: BP 105/74 Pulse 104 Temp 36.6 ?C (97.9 ?F) (Oral) Resp 18 Ht 188 cm (6' 2) Wt 95.7 kg (210 lb 15.7 oz) SpO2 94% BMI 27.09 kg/m? Exam: General: NAD, AOx3 Left Lower Extremity: Dressing dry, clean and intact. There is minimal tenderness to palpation about the incision site. Compartments of the thigh and leg are soft and compressible. The patient tolerates passive stretch of the digits. +DF/PF/EHL. SILT mcdonough/sa/sp/dp/t. BCR of the digits of the foot. Recent Labs 08/30/22 0109 08/29/22 0018 08/28/22 1642 CREAT 0.79 0.69* 0.91 BUN 18 21 24 NA 136 138 141 K 3.9 3.7 4.0 CHLOR 101 102 103 CO2 25 23 24 ANION 10 13 14 GLUC 141* 149* 189* CA 8.0* 9.2 9.2 ALB -- -- 4.2 AST -- -- 25 ALT -- -- 22 ALKPHOS -- -- 51 TBILI -- -- 0.4 WBC 5.25 9.34 5.58 HB 12.0* 12.8* 13.8 HCT 35.8* 38.0* 41.3 PLT 187 186 198 COAGS: APTT 27.3 08/29/2022 INR 1.0 08/29/2022 SED RATE/CRP: No results found for this basename: wsr:*,crp:* Imaging: XR left femur demonstrating stable and intact orthopedic hardware to the left femur Digna Foy MD Orthopaedic Surgery 08/30/2022 6:42 [facility]06-12-2023 NoteHNO ID: [id number] Author: Bradley Pearson MD Service: Anesthesiology Author Type: Physician Type: Anesthesia Procedure Notes Filed: 08/29/2022 3:33 PM Note Text: ANESTHESIOLOGY PROCEDURE NOTE Peripheral Nerve Block General Information Procedure Start Time/Medication Administration: 08/29/2022 2:53 PM Procedure End time: 08/29/2022 2:58 PM Patient location during procedure: PACU Timeout Performed Pre-procedure: timeout performed Patient identity confirmed: arm band and patient Reason for block: post-op pain management/at surgeon's request Staffing Anesthesiologist: Bradley Pearson MD Performed by: anesthesiologist Preparation Sterility Preparation: hand hygiene performed prior to procedure, sterile gloves, drapes, and procedure tray, surgical cap used, mask used, skin prep agent completely dried prior to procedure Site Prep: Chloraprep Pre-Procedure Neuro Exam Location: [facility] Procedure Details Monitoring: Pulse OX, EKG and NIBP Block Type Lower Extremity: fascia iliaca Laterality: left Injection Technique: single-shot Ultrasound Guided: Yes Image in Chart: no Needle Needle Type: blunt Needle Gauge: 21 G Needle Length: 110 mm Needle Localization: ultrasound Assessment Injection assessment: negative aspiration, no paresthesia on injection and incremental injection Medications Administered ropivacaine (PF) 2 mg/mL (0.2 %) injection (NAROPIN) - peripheral nerve block 30 mL - 08/29/2022 2:53:00 PM SIGNATURE: Bradley Pearson MD PATIENT NAME: Sae Kapadia DATE: August 29, 2022 TIME: 3:32 PM CSN: [id number] Light A.R. [facility]06-12-2023 NoteHNO ID: [id number] Author: Maame Colon RN Service: Nursing Author Type: Registered Nurse Type: Nursing Progress Note Filed: 08/29/2022 2:14 PM Note Text: xRay doneNorthern Light A.R. Gould [facility]06-12-2023 NoteHNO ID: [id number] Author: Elvira Vazquez APRN.BATH STEWARD Service: Nursing Author Type: Nurse Inseam Leveler Type: Anesthesia Procedure Notes Filed: 08/29/2022 11:13 AM Note Text: ANESTHESIOLOGY PROCEDURE NOTE Airway General Information Procedure Start Time/Medication Administration: 08/29/2022 10:49 AM Procedure End Time: 08/29/2022 10:50 AM Patient location during procedure: OR Timeout Performed Pre-procedure: timeout performed Consent Obtained: Yes Patient identity confirmed: arm band and patient Staffing BATH STEWARD: Elvira Vazquez APRN.BATH STEWARD Performed by: MAXIMO Indications and Patient Condition Indications for airway management: anesthesia and airway protection Preoxygenated: yes anesthesia circuit Patient position: sniffing Method: asleep Airway Accessory: oral airway Final Airway Details Final airway type: endotracheal airway Final Endotracheal Airway: ETT Cuffed: yes Successful intubation technique: direct laryngoscopy Devices used: Glidescope Endotracheal tube insertion site: oral Blade: Yeni Blade size: #4 ETT size (mm): 8.0 Measured from: lips Measurement (cm): 23 Placement verified by: capnometry Cormack-Lehane Classification: grade I - full view of glottis Number of attempts at approach: 1 Airway not difficult SIGNATURE: Elvira Vazquez APRN.BATH STEWARD PATIENT NAME: Sae Kapadia DATE: August 29, 2022 TIME: 11:12 AM CSN: [id number] Light A.R. Gould [facility]06-12-2023 NoteHNO ID: [id number] Author: Mere Bell RN Service: Nursing Author Type: Registered Nurse Type: Nursing Progress Note Filed: 08/29/2022 10:01 AM Note Text: Dr pearson notified of bp [facility]06-12-2023 NoteHNO ID: [id number] Author: Hernan Kaiser MD Service: Orthopaedic Surgery Author Type: Resident Type: Progress Notes Filed: 08/29/2022 6:49 AM Note Text: Orthopaedic Surgery Inpatient Progress Note Assessment Sae Kapadia is a 61 year old male with atypical left subtrochanteric femur fracture in the setting of bisphosphonate use and history of metastatic prostate cancer . Plan: - Management per Orthopaedics - Pain control. - DVT PPx: SCDs. Will hold Chemoprophylaxis for OR 08/29. - Antibiotic PPx: none. - Weight-bearing Status: NWB LLE. - Medicine consult, appreciate recommendations. - Pre-op labs ordered. - Diet: NPO/IVF - OR 08/29 for surgical fixation of subtrochanteric femur fx. - Dispo: pending post surgical course Subjective No acute events overnight. Pain controlled. No fevers, chills, chest pain, or shortness of breath. No new complaints. Some spasms in the leg overnight. Also with some nausea. Physical Examination Vitals BP 168/99 Pulse 79 Temp 36.9 ?C (98.4 ?F) (Oral) Resp 18 Ht 188 cm (6' 2) Wt 95.7 kg (210 lb 15.7 oz) SpO2 95% BMI 27.09 kg/m? General Alert and oriented. Vomiting while in room. Left Lower Extremity Alignment normal. No gross deformities. No swelling, ecchymosis, or erythema. No open wounds or lacerations. Compartments of the thigh and leg are soft and compressible Tolerates passive stretch of the digits SILT Mcdonough/Sa/DP/SP/T. Motor intact EHL/DF/PF. BCR all digits. Labs Recent Labs 08/29/22 0018 08/28/22 1642 NA 138 141 K 3.7 4.0 CHLOR 102 103 CO2 23 24 BUN 21 24 CREAT 0.69* 0.91 GLUC 149* 189* ANION 13 14 CA 9.2 9.2 ALB -- 4.2 AST -- 25 ALT -- 22 ALKPHOS -- 51 TBILI -- 0.4 WBC 9.34 5.58 HB 12.8* 13.8 HCT 38.0* 41.3 PLT 186 198 INR 1.[address] L femur: demonstrating subtrochanteric fracture, no evidence of osseous lesion Hernan Kaiser MD Orthopaedic Surgery 08/29/2022 6:20 [facility]06-11-2023 History of Past illness Narrative * Problem Noted Date Resolved Date Subtrochanteric fracture of left femur, closed, initial encounter 08/28/2022 09/01/2022 documented as of this encounter (statuses as of 09/06/2022) [facility]06-11-2023 History of Past illness Narrative* Problem Noted Date Resolved Date Subtrochanteric fracture of left femur, closed, initial encounter 08/28/2022 09/01/2022 documented as of this encounter (statuses as of 09/18/2022) [facility]06-11-2023 History of Past illness Narrative* Problem Noted Date Diagnosed Date Resolved Date Subtrochanteric fracture of left femur, closed, initial encounter 08/28/2022 09/01/2022 documented as of this encounter (statuses as of 10/20/2022) [facility]06-11-2023 History of Past illness Narrative* Problem Noted Date Diagnosed Date Resolved Date Subtrochanteric fracture of left femur, closed, initial encounter 08/28/2022 09/01/2022 documented as of this encounter (statuses as of 11/08/2022) [facility]06-11-2023 History of Past illness Narrative* Problem Noted Date Diagnosed Date Resolved Date Subtrochanteric fracture of left femur, closed, initial encounter 08/28/2022 09/01/2022 documented as of this encounter (statuses as of 12/01/2022) [facility]04-17-2023 History of Present illness Narrative* Isiah Harding PA-C - 07/04/2022 3:30 PM EDT Subjective Patient ID: Sae Kapadia is a 61 y.o. male who presents for Follow-up (3 month/Pt thinks Cardiologywanted him seen due to an echo he had done). HPI Patient presents in follow-up. Patient wishes to discuss abnormal findings on the bone scan. Reportedly, the scan showed polyarthritis and some degenerative changes in the thoracic and lumbar spine. X-ray follow-up was recommended. With further discussion, patient does admit to chronic intermittently fairly severe low back pain that radiates down the right leg. Patient had not mentioned this previous visits. No reported attempted conservative management. Patient states that when the pain is bad, walking on the treadmill actually helps it. Patient also wishes to discuss postprandial vomiting. Patient reports intermittent episodes of postprandial vomiting that occurs primarily in the morning and after taking medications on an empty stomach. Patient admits this has been going on for years as well but was so sporadic that it was never me ntioned. Patient denies abdominal pain and there is no known trigger. Since last visit, patient has seen cardiology and blood pressure has been normalized. Patient states that the chest pressure has stopped since that time. Blood pressure was good on intake today. During the work-up, incidental 3.6 cm aortic aneurysm on the ascending aorta was noted. CT calcium scorewas low. Review of Systems Constitutional: See HPI Gastrointestinal: See HPI Musculoskeletal: See HPI Neurologic: Alert and oriented X4, No numbness, No tingling. All other systems are negative Objective BP 139/79 (BP Location: Left arm, Patient Position: Sitting, BP Cuff Size: Adult) Pulse 79 Ht 1.88 m (6' 2) Wt 91.2 kg (201 lb) BMI 25.81 kg/m Physical Exam General: Alert and oriented, No acute distress. Eye: Pupils are equal, round and reactive to light, Extraocular movements are intact, Normal conjunctiva. HENT: Normocephalic, Normal hearing, Oral mucosa is moist, No pharyngeal erythema, No sinus tenderness. Neck: Supple, Non-tender, No lymphadenopathy. Respiratory: Lungs are clear to auscultation, Respirations are non-labored, Breath sounds are equal Cardiovascular: Normal rate, Regular rhythm. Gastrointestinal: Non-distended. Abdomen is nontender; negative Monteiro's Musculoskeletal: Normal range of motion, Normal strength, No tenderness, No swelling, No deformity,Normal gait. Integumentary: Warm, Dry, Intact, No pallor, No rash. Neurologic: Alert, Oriented, Normal sensory, Normal motor function, No focal deficits, Cranial Nerves II-XII are grossly intact Psychiatric: Cooperative, Appropriate mood & affect. Assessment/Plan Polyarthralgia and low back pain: Celebrex written as well as topical formulation from [employer]dermal [employer]. X-ray thoracic and lumbar spine ordered. Further recommendations pending results. Dyslipidemia: Continue Crestor. Follow-up lipid panel for 3 months. Postprandial vomiting: Etiology unclear. We will start with gallbladder ultrasound. Labs showed normal LFTs on recent draw. Further recommendations pending results. Possible gallbladder triggers reviewed. Problem List Items Addressed This Visit Prostate cancer (CMS/HCC) - Primary Ascending aortic aneurysm (CMS/HCC) Dyslipidemia Relevant Orders Lipid Panel Hot flashes HTN (hypertension) Restless legs syndrome (RLS) Other Visit Diagnoses Postprandial vomiting Relevant Orders US gallbladder Polyarthritis Relevant Medications celecoxib (CeleBREX) 100 mg capsule Chronic right-sided low back pain with right-sided sciatica Relevant Medications celecoxib (CeleBREX) 100 mg capsule Other Relevant Orders XR thoracic spine complete 4+ views XR lumbar spine complete 4+ views Final diagnoses: [C61] Prostate cancer (CMS/HCC) [E78.5] Dyslipidemia [R23.2] Hot flashes [I10] Primary hypertension [I71.21] Aneurysm of ascending aorta without rupture (CMS/HCC) [G25.81] Restless legs syndrome (RLS) [R11.10] Postprandial vomiting [M13.0] Polyarthritis [M54.41, G89.29] Chronic right-sided low back pain with right-sided sciatica documented in this [facility] Work Phone: [phone]) 504-420902-10-2023 History of Present illness NarrativePatient identity confirmed today with name/. the patient entered with one R cane today (I use it mostly for balance), L hip weakness still precludes smooth marching without R crutch; 2/10 discomfort upon sessions end today. [facility] Work Phone: [phone]) 440-232412-01-2022 History of Present illness Narrative* Sae Kapadia is a 61-year-old male with a h/o dyslipidemia, intermittent chest pain, prostate cancer,restless legs, establishing Cardiology care for results of his recent holter monitor. * Per patient's chart, he presented to his PCP in February and was last seen by a PCP 5-6 years ago. On the initial visit, Sae complained of elevated blood pressure readings and intermittent left-sided chest pain. Labs were ordered and a holter monitor was placed. * Abnormal labs: Cholesterol 280mg/dL; LDL 175mg/dL; patient prescribed rosuvastatin 10mg daily * Holter monitor: revealed a predominant rhythm of normal sinus rhythm with an average heart rate of 75 bpm; PVC burden less than 0.1%; PAC burden less than 0.1%. The monitor did reveal two occurrencesof SVT with the HR reaching 211 bpm for three beats. No symptoms reported on the monitor. * Today, Sae reports his intermittent chest pain has remained the same as it did in February. The pain only occurs when he is lying down and remains localized to the left-side of his chest. Alleviating factor is position. There are no aggravating factors and the pain does not radiate. * Per the patient's she did start to check his BP in early March with systolic readings averaging 130-180. She has not checked his BP in a few weeks. Sae's also reports the patient snoresat night. * Sae denies any palpitations, SOB, dizziness, syncope, lower leg edema, or claudication. * Contributory family hx: * Mom-none * Father-none * Siblings-none * Social hx: * Employed as a [employer] * Non-smoker * Occasional alcohol use * No illicit drug use [facility] [address] Work Phone: [phone] History of Present illness Narrative* Patient presents to establish care. * Patient's only current chronic illnesses history of prostate cancer. Approximately 4 years ago patient was been diagnosed with prostate cancer. Patient underwent chemo only as it had metastasized to the regional lymph nodes and bone. Patient had good success with chemotherapy and remains on maintenance chemo through [facility]. * Patient complains of symptoms consistent with restless leg syndrome. Patient reports involuntary jerking movements of the bilateral lower extremities that started after starting chemotherapy. Patientstates symptoms have worsened and have recently become so bad it is causing insomnia. Patient had discussed this with oncology who suspected dehydration or electrolyte imbalance some these were both ruled out. * Patient also reports intermittent chest pain and elevated blood pressure readings at home. Patient has had intermittent left-sided chest pain not associated with activity over the past several months. No shortness of breath. Patient is in good physical condition and continues strenuous physical acti vity. patient's blood pressure readings at home have been elevated. [facility] Work Phone: [phone] History of Present illness Narrative* Patient presents to [facility]. * Patient's only current chronic illnesses history of prostate cancer. Approximately 4 years ago patient was been diagnosed with prostate cancer. Patient underwent chemo only as it had metastasized to the regional lymph nodes and bone. Patient had good success with chemotherapy and remains on maintenance chemo through [facility]. * Patient complains of symptoms consistent with restless leg syndrome. Patient reports involuntary jerking movements of the bilateral lower extremities that started after starting chemotherapy. Patientstates symptoms have worsened and have recently become so bad it is causing insomnia. Patient had discussed this with oncology who suspected dehydration or electrolyte imbalance some these were both ruled out. * Patient also reports intermittent chest pain and elevated blood pressure readings at home. Patient has had intermittent left-sided chest pain not associated with activity over the past several months. No shortness of breath. Patient is in good physical condition and continues strenuous physical acti vity. patient's blood pressure readings at home have been elevated. [facility] Work Phone: Chimq complaint Narrative - Reported* An interactive audio and video telecommunication system which permits real time communications between the patient (at the originating site) and provider (at the distant site) was utilized to providethis telehealth service. * Personal history of metastatic prostate cancer [facility] Work Phone: chirz complaint Narrative - Reported* An interactive audio and video telecommunication system which permits real time communications between the patient (at the originating site) and provider (at the distant site) was utilized to providethis telehealth service. * Personal history of metastatic prostate cancer YA[facility]Zyzpvdrt-Ixafxalk [facility] Work Phone: Evaluation note* Diagnosis Onset Date Resolution Status Bone metastases chronic Hot flash in male chronic Prostate cancer chronic Regional lymph node metastasis present chronic Bone metastases chronic Hot flash in male chronic Prostate cancer chronic Regional lymph node metastasis present chronic Bone metastases chronic Hot flash in male chronic Prostate cancer chronic Regional lymph node metastasis present chronic Bone metastases chronic Hot flash in male chronic Prostate cancer chronic Regional lymph node metastasis present chronic Educational circumstance res olved Neck pain resolved [facility] Work Phone: Evaluation note* Diagnosis Prostate cancer (CMS/HCC)- Primary Malignant neoplasm of prostate Dyslipidemia Other and unspecified hyperlipidemia Hot flashes Primary hypertension Unspecified essential hypertension Aneurysm of ascending aorta without rupture (CMS/HCC) Restless legs syndrome (RLS) Postprandial vomiting Polyarthritis Unspecified polyarthropathy or polyarthritis, site unspecified Chronic right-sided low back pain with right-sided sciatica documented in this encounter [facility] Work Phone: Evaluation note* Diagnosis Closed displaced subtrochanteric fracture of left femur with routine healing, subsequent encounter- Primary [facility]* Diagnosis Closed displaced subtrochanteric fracture of left femur with routine healing, subsequent encounter- Primary [facility]* Diagnosis Closed displaced subtrochanteric fracture of left femur with routine healing, subsequent encounter- Primary [facility]* Diagnosis Onset Date Resolution Status Bone metastases chronic Hot flash in male chronic Prostate cancer chronic Regional lymph node metastasis present chronic Bone metastases chronic Hot flash in male chronic Prostate cancer chronic Regional lymph node metastasis present chronic Bone metastases chronic Hot flash in male chronic Prostate cancer chronic Regional lymph node metastasis present chronic Bone metastases chronic Hot flash in male chronic Prostate cancer chronic Regional lymph node metastasis present chronic Bone metastases chronic Hot flash in male chronic Prostate cancer chronic Regional lymph node metastasis present chronic Educational circumstance res olved Neck pain resolved [facility] Work Phone: Evaluation note* Diagnosis Prostate cancer (CMS/HCC)- Primary Malignant neoplasm of prostate Restless legs syndrome (RLS) Dyslipidemia Other and unspecified hyperlipidemia Primary hypertension Unspecified essential hypertension Prediabetes Other abnormal glucose documented in this encounter [facility] Work Phone: Evaluation note* Diagnosis Sebaceous cyst- Primary documented in this encounter [facility] Work Phone: Evaluation note* Diagnosis Rib pain on left side Chest pain, unspecified [facility] Diagnosis Chronic pain of both knees- Primary documented in this encounter [facility] Work Phone: [phone] note* Diagnosis Chronic pain of both knees documented in this encounter [facility] Work Phone: [phone] note* Diagnosis Primary osteoarthritis of both knees- Primary Arthritis of both knees documented in this encounter [facility] Work Phone: [phone] note* Diagnosis Primary osteoarthritis of both knees- Primary Arthritis of both knees Primary hypertension- Primary Unspecified essential hypertension Primary osteoarthritis of both knees Restless legs syndrome (RLS) Dyslipidemia Other and unspecified hyperlipidemia Hot flashes Primary osteoarthritis of both knees documented in this encounter [facility] Work Phone: [phone] note* Diagnosis Primary osteoarthritis of both knees- Primary Arthritis of both knees Primary osteoarthritis of both knees documented in this encounter [facility] Work Phone: [phone] note* Diagnosis Primary osteoarthritis of both knees- Primary Arthritis of both knees Primary osteoarthritis of both knees Primary osteoarthritis of both knees documented in this encounter [facility] Work Phone: [phone] note* Diagnosis Primary osteoarthritis of both knees- Primary Arthritis of both knees Primary osteoarthritis of both knees Primary osteoarthritis of both knees documented in this encounter [facility] Work Phone: [phone] note* Diagnosis Primary osteoarthritis of both knees- Primary Arthritis of both knees Primary osteoarthritis of both knees Primary osteoarthritis of both knees Primary osteoarthritis of both knees documented in this encounter [facility] Work Phone: [phone] note* Diagnosis Primary osteoarthritis of both knees- Primary Arthritis of both knees Primary osteoarthritis of both knees Primary osteoarthritis of both knees Primary osteoarthritis of both knees Primary osteoarthritis of both knees documented in this encounter [facility] Work Phone: [phone] note* Diagnosis Primary osteoarthritis of both knees- Primary Arthritis of both knees Primary osteoarthritis of both knees Primary osteoarthritis of both knees Primary osteoarthritis of both knees Left rotator cuff tear arthropathy- Primary Injury of left shoulder, initial encounter Nontraumatic complete tear of left rotator cuff documented in this encounter [facility] Work Phone: Evaluation note* Diagnosis Primary osteoarthritis of both knees- Primary Arthritis of both knees Primary osteoarthritis of both knees Primary osteoarthritis of both knees Primary osteoarthritis of both knees Injury of left shoulder, initial encounter documented in this encounter [facility] Work Phone: History of Present illness Narrative* HISTORY OF PRESENT ILLNESS: * Mr. Kapadia is a 60-year-old male with a personal history of metastatic prostate cancer. He was referred to the [facility]etics [facility] at [facility] by his physician, Dr. Luis Cooney. is interested in genetic testing to clarify his personal risks for cancer, as well as the risks to his family members. * CANCER MEDICAL HISTORY: * PERSONAL HISTORY OF CANCER? Yes * Type: Metastatic prostate adenocarcinoma, with metastasis to bones and lymph nodes * Age at diagnosis: 57 * Summary of treatment: He has been treated with Lupron with casodex, 6 cycles of chemotherapy in 2019, and Zometa for bone supportive therapy. He is continuing androgen deprivation therapy with LupronDepot detention. He is being monitored with H&P and PSA monthly, as well as bone scan and CT every 6 months. He is continuing bone supportive therapy with Zometa every 12 weeks. * HISTORY OF OTHER CANCERS? No * PRIOR GENETIC TESTING: No * CANCER SCREENING HISTORY: * Colonoscopy? Yes x 1, in Nov 2017. Denies personal history of colon polyps. Timeframe for follow up was not specified. * Endoscopy? No * Dermatology? No * Other cancer screening? No * Smoking hx: No * FAMILY HISTORY: * A 3-generation pedigree was obtained and was significant for the following: * - Brother (age 60): prostate cancer diagnosed at age 58 (s/p prostatectomy; nonmetastatic) * - Sister (age 62): breast cancer diagnosed in her mid 50s * - Father (d. 86): prostate cancer diagnosed at age 60 (s/p prostatectomy and radiation therapy; nonmetastatic) * - Paternal grandmother (d. 51): breast cancer diagnosed at age 49 or 50 (metastatic) * - Paternal grandfather (d. 72): colon cancer diagnosed in his 50s * - Paternal cousin (in her 40s): thyroid cancer (unknown type) diagnosed in her 40s * - No maternal family history of cancer * Mr. Kapadia reports that his maternal ancestry is [place] and his maternal ancestry is [place]. There isno known Ashkenazi Mosque ancestry. Consanguinity was denied. [employer] Work Phone: History of Present illness Narrative* HISTORY OF PRESENT ILLNESS: * Mr. Kapadia is a 60-year-old male with a personal history of metastatic prostate cancer. He was referred to the [facility]etics Clinic at [facility] by his physician, Dr. Luis Cooney. is interested in genetic testing to clarify his personal risks for cancer, as well as the risks to his family members. * CANCER MEDICAL HISTORY: * PERSONAL HISTORY OF CANCER? Yes * Type: Metastatic prostate adenocarcinoma, with metastasis to bones and lymph nodes * Age at diagnosis: 57 * Summary of treatment: He has been treated with Lupron with casodex, 6 cycles of chemotherapy in 2019, and Zometa for bone supportive therapy. He is continuing androgen deprivation therapy with LupronDepot detention. He is being monitored with H&P and PSA monthly, as well as bone scan and CT every 6 months. He is continuing bone supportive therapy with Zometa every 12 weeks. * HISTORY OF OTHER CANCERS? No * PRIOR GENETIC TESTING: No * CANCER SCREENING HISTORY: * Colonoscopy? Yes x 1, in Nov 2017. Denies personal history of colon polyps. Timeframe for follow up was not specified. * Endoscopy? No * Dermatology? No * Other cancer screening? No * Smoking hx: No * FAMILY HISTORY: * A 3-generation pedigree was obtained and was significant for the following: * - Brother (age 60): prostate cancer diagnosed at age 58 (s/p prostatectomy; nonmetastatic) * - Sister (age 62): breast cancer diagnosed in her mid 50s * - Father (d. 86): prostate cancer diagnosed at age 60 (s/p prostatectomy and radiation therapy; nonmetastatic) * - Paternal grandmother (d. 51): breast cancer diagnosed at age 49 or 50 (metastatic) * - Paternal grandfather (d. 72): colon cancer diagnosed in his 50s * - Paternal cousin (in her 40s): thyroid cancer (unknown type) diagnosed in her 40s * - No maternal family history of cancer * Mr. Kapadia reports that his maternal ancestry is [place] and his maternal ancestry is [place]. There isno known Ashkenazi Mosque ancestry. Consanguinity was denied. [employer] Work Phone: History of Present illness Narrative* Sae Kapadia is a 61-year-old male with a h/o dyslipidemia, intermittent chest pain, prostate cancer,restless legs, presenting for his one month follow-up for the following concerns: * 1. Intermittent chest pain: * -Patient previously evaluated by his PCP for intermittent left-sided chest pain. Holter monitor revealed NSR with an average HR of 75 bpm and PVC burden less than 0.1%; PAC burden less than 0.1%. Themonitor did reveal two occurrences of SVT with the HR reaching 211 bpm for three beats. No symptoms reported on the monitor. * -His documented blood pressures in the [facility] revealed elevated blood pressure with no current medication on board. I instructed the patient and his spouse to begin checking his BP, record results, andbring in to his appointment. Patient was prescribed losartan 25mg p.o. daily at his last appointment. When I called to inform them of his test results, the reports his BP continues to be high with systolic readings averaging 160-190 with associated complaints of chest discomfort. I instructed patient to increase his losartan to 50mg daily. * -Coronary calcium score on 04/28/22 was 0.95 and displayed trace pericardial effusion. Echocardiogramdisplayed no evidence of pericardial effusion; normal EF of 55-60%; impaired relaxation pattern of the left ventricular diastolic filling; mild asymmetric left ventricular hypertrophy. * -Patient's spouse reports the patient does snore at night, but the patient declines to wear a CPAP and therefore is not interested in further testing. * 2. Dyslipidemia: * Lipid panel on 03/18/22 revealed cholesterol 280mg/dL; LDL 175mg/dL; patient prescribed rosuvastatin 10mg daily * Today, the patient reports symptom improvement with his left-sided chest pain since the increase inthe losartan dose. He continues to check his BP at home with readings averaging 120s/80s. He deniesany palpitations, SOB, dizziness, syncope, or lower leg edema. [id number] [address] Work Phone: History of Present illness NarrativePatient identified by name and date of . Patient ambulated into clinic with axiliary crutches with WB as tolerated. He was able to progress with addition of weight shifts w/o increased pain after. He demonstrated good tolerance to exercises with quad fatigue noted. [facility] Work Phone: History of Present illness NarrativePatient identity confirmed today with name/. ; x2 crutches entering the clinic today (using x1 crutch in his house); added to HEP and given handouts.[facility] Work Phone: History of Present illness Narrative* Patient identified by name and * Able to progress PRE's with no c/o increased symptoms. Requires verbal cues to keep heels on groundwith squats this date with patient demo'g good understanding. [facility] Work Phone: History of Present illness NarrativePatient identity confirmed today with name/. the patient entered with one R crutch (I use it mostly for balance), L hip weakness still precludes smooth marching without R crutch.[facility] Work Phone: History of Present illness NarrativePatient identity confirmed today with name/. still with cane during ambulation into clinic; added to HEP and given handout-the RSL L hip abd was difficult for the patient; able to perform marchingwithout R cane today (still with reduced L stance and mild L ipsi trunk lean); able to complete session (with progressions and extra exercise) more quickly today.[facility] Work Phone: History of Present illness Narrative* Challenged with ex's listed above secondary to weakness in LLE, but patient denies increase in soreness throughout session and tolerated all well. Good compliance with HEP, per patient and . * Response to treatment: no change in pain and improved knowledge and understanding of condition. * Patient was able to complete today's treatment with ease. [facility] Work [facility]: History of Present illness Narrative* Patient identity confirmed today with name/. the patient arrived with R cane; better smoothness with marching tri (without cane) and increased volume with most closed chain activities today; the patient acknowledges that closed chain progress is slow. * Response to treatment: no change in pain and improved knowledge and understanding of condition. * Patient was able to complete today's treatment with ease. [facility] Work [facility]: History of Present illness Narrative* Good tolerance with increased reps/resistance this date. Minimal sx.'s needed with form. Quick fatigue noted with SLR's. * Response to treatment: improved strength. * Patient was able to complete today's treatment with some difficulty. [facility] Work Phone: History of Present illness NarrativePatient was identified by name and date. Instructed self massage techniques with roller bar and stretches to cont in HEP. He voiced good understanding. This session able to progress CKC exercises on the turf field to challenge his balance and SL stance stability in L leg. He was able to complete minimal 1 UE support /min CGA for SL stance activities and unsupported / SBA with dynamic activities. He denied increased Sxs after session. [facility] Work Phone: History of Present illness Narrative* Patient identity confirmed today with name/. see goals; the patient entered the clinic without acane today-there is a ipsi trunk lean with LLE WBing; good strength and ROM and ADL gains; hip abduction strength deficit (with gait also) is the main remaining limitation to this point; reviewed ongoing HEP today * . [facility] Work Phone: Progress note Author Sally San [facility] Note Date/Time January 02, 2025 3 :04pm [facility] [address] [place] [address] OFFICE VISIT Date of Service: 01/02/25 1438 MR#: [id number] Acct: [id number] Name: SAE KAPADIA Rep #: [id number] : 1960 From: Sally Santos C D STILL OPERATOR C D STILL OPERATOR-C Age/Sex: 64/M Location: [facility] Status: Signed HPI Subjective Date of Service 01/02/25 Chief Complaint Prostate cancer on treatment History of Present Illness Patient is a 64-year-old gentleman, 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 revealed marked retroperitoneal, periaortic, and left iliac adenopathy with the largest lymph node mass measuring 5.6 cm in the lower periaortic/common iliac chain, together with a CT scan of the chest on September 21 showed no visceral metastatic disease. September 21, 2017:?A CT-guided biopsy of retroperitoneal lymph nodes? revealed metastatic adenocarcinoma PSA positive consistent with metastatic prostate cancer.??Cancer is microsatellite stable?( [facility] March 2020) October 2020 genetic testing at for a 47 gene panel showed no known pathogenicmutation, was a variant of uncertain significance. September 29, 2017:? PSA >154. September 28, 2017:?A bone scan? showed changes within the vertebral spine that were thought degenerative and inflammatory. He received a Lupron injection in September 2017 under the care of his urologist Dr. Jimenez, with Casodex cover in the first month then referred for a second opinion at where he was seen again by urologist Dr. Conn who informed him that his disease was non-operable, advised continued androgen deprivation therapy and consultation with medical oncology.? He was also seen by radiation oncology at [facility] by Dr. Murray who advised medical management. December 26, 2017:?A follow-up? bone scan? showed interval progressive changes scattered throughout the axial and proximal appendicular skeleton in addition toseveral small new foci highly suspicious for progressive osseous metastatic disease. December 22, 2017:?PSA? down to 20 and his testosterone level was consistent with a castrate level of 8. February 19, 2018:?Patient is transferring care to [facility] for proximity to his residence, PSA? further down to 13. July 31, 2018: Bone scan: IMPRESSION: 1.? The increased radiopharmaceutical concentration identified in the third thoracic vertebra may be further investigated with plain film radiography in the setting of known prostate carcinoma if not previously obtained. ? 2.? Degenerative arthritis remains apparent in the thoracic and lumbar spine, sacrum, left hip, bilateral shoulders elbows bilaterally, left wrist, right-left knees and right ankle articulation. ? 3.? Overall compared to the previous whole body bone scintigraphy study dated 12/26/2017, the persistent increase in tracer uptake noted in the third thoracic vertebra warrants further evaluation with plain film radiography is not previously obtained. Otherwise, there is no significant interval change compared to the prior examination. February 2019 bone scan: IMPRESSION: 1.? The increase in radiopharmaceutical concentration identified in the cervical thoracic and lumbar spine, both shoulders, sacrum, wrist and elbow articulations bilaterally, right and left hips, both knees is commensurate with degenerative arthritis. ?2.? Overall compared to the previous whole body bone scintigraphy study dated 07/31/2018, there is no significant interval change.? There is no present typical scintigraphic evidence of diffuse axial skeletal metastatic disease. October 17, 2019 bone scan: IMPRESSION: 1. The increase in radiopharmaceutical distribution currently defined in the cervical, thoracic and lumbar spine, sacrum, bilateral shoulders, left elbow, right-left knees, the right ankle and left wrist are commensurate with degenerative arthritis. 2.? Overall compared to the previous whole body bone scintigraphy study dated 03/19/2019, there is no significant interval change.? No current typical scintigraphic evidence of diffuse axial skeletal metastatic disease is demonstrated on the present examination. March 18, 2020 bone scan: IMPRESSION: 1.? The increase in tracer distribution defined in the cervical, thoracic and lumbar spine, sacrum, right and left shoulders, knees bilaterally, both wrist articulations is commensurate with degenerative arthritis. 2.? Overall compared to the previous whole body bone scintigraphy study dated 10/17/2019, there is no significant interval change.? No current typical scintigraphic evidence of skeletal metastatic disease is demonstrated on the current examination. April 20, 2020 CT abdomen and pelvis: Comparison is made with prior outside examination dated 09/13/2017. Since prior examination, there has been marked improvement in the retroperitoneal and pelvic lymphadenopathy. April 20, 2020 chest x-ray: IMPRESSION: No demonstrated acute cardiopulmonary process. ? August 05, 2020 CT chest abdomen and pelvis: IMPRESSION: No acute cardiopulmonary findings.? Increase mild fibrotic bibasilar changes.? Stable 4 mm nodule of the right upper lobe. Stable subcentimeter/shotty periaortic lymph nodes and stable adenopathy of the left iliac chain as described above. New faintly osteoblastic 6 mm lesion of T 13, 13 rib bearing vertebral bodies.? Stable other osseous sclerotic lesions in the sternum, S1, right superior and inferior pubic rami.? These are very small and dense and could be bone islands rather than metastatic disease. ?No additional acute abdominal or pelvic findings. August 07, 2020 bone scan: IMPRESSION: 1.? The increase in tracer distribution defined in the bilateral shoulders, right and left elbows, wrists bilaterally, bilateral hands, cervical, thoracic and lumbar spine and sacrum, both knee articulations and right ankle is most consistent with degenerative arthritis. ?2.? Overall compared to the previous whole body bone scintigraphy study dated 03/18/2020, there is no significant interval change.? No current typical scintigraphic evidence of diffuse axial skeletal metastatic disease is noted on the current examination. June 27, 2022 bone scan: IMPRESSION: 1. The multifocal increase in radiopharmaceutical concentration defined in the bilateral shoulder, elbow and wrist articulations, the knees bilaterally, the cervical, thoracic and lumbar spine, the sacroiliac joints bilaterally consistent with degenerative arthritis. Correlation with plain film radiography is recommended in the thoracic, lumbar spine and pelvis. ? 2. Enhanced tracer distribution defined in the left anterior fourth rib the costochondral junction is most consistent with trauma-fracture. ? 3. Overall compared to the previous whole body bone scintigraphy study dated 08/07/2020, there is continued demonstration of diffuse degenerative changes with newly identified uptake noted in the thoracic and lumbar spine as well as pelvis warranting further evaluation with plain film x-ray. July 06, 2022 CT chest abdomen and pelvis: IMPRESSION: Essentially stable examination except for interval decrease in size of the lymph nodes seen in the left iliac chain. February 13, 2023 CT chest abdomen and pelvis: IMPRESSION: 1. Nodular density on the right side of the prostate bed could be prostate tissue. Correlation with PET scan is recommended. 2. Otherwise no significant change since the previous exam. 3. No evidence of new metastatic disease. February 20, 2023 bone scan: IMPRESSION: 1. The increase in tracer uptake noted in the left anterior chest wall consistent with trauma fracture. 2. Newly identified increased uptake noted in the proximal left femoral metaphysis, diaphysis and distal left femoral diaphysis may represent trauma-fracture or orthopedic hardware placement. Further evaluation with plain film radiography is recommended. 3. Degenerative changes are defined in the bilateral knee and shoulder articulations, the cervical, thoracic and lumbar spine, the sacrum and left midfoot. Treatment and response summary: - Lupron October 16 2017 - Taxotere prednisone March 26, 2018-June 2018 (6 cycles) MI - Zytiga prednisone July 2020-February 2023 MI then progression. - Xtandi February 2023 MI. -Zometa 2017- Interval History The patient is presenting to clinic for a planned 6 week follow up. Reports goodadherence and good tolerance to Xtandi. Typically takes at [id number]. Hot flashes are minimal, primarily at HS. Remains on Effexor. No daytime somnolence. Requests refill. Denies headache, dizziness, CP, palpitations, cough, SOB, abd pain, changes in his bowel habits, swelling in his extremities. BPs at home WNL. Has visit in February with pcp to check lipids. PFS Medical History Hot flash in male Bone metastases Regional lymph node metastasis present Prostate cancer Prostate cancer Surgical History History of surgery on lower extremity Family History Father Prostate cancer Sister Breast cancer Grandmother Breast cancer Grandfather Colon cancer Social History Smoking Status: Never smoker alcohol intake: current alcohol intake frequency: holidays/special occasions only ROS ROS Narrative Negative except as documented in the interval HPI Intake Vital Signs 11/21/24 13:15 01/02/25 14:40 01/02/25 14:41 Height 6 ft 2 in 6 ft 2 in 6 ft 2 in Weight: 205 lb 7 oz 206 lb 8 oz BMI 26.4 26.5 BP 147/78 H 148/91 H Blood Pressure Location Rt brachial Lt brachial Position Sitting Sitting Respiration 18 16 Pulse 69 79 Pulse Source Monitor Monitor Temp 98.3 F 98.3 F Temperature Source Temporal Artery Temporal Artery Pulse Oximetry (%) 96 97 Oxygen Delivery Method room air room air Intake Is patient in pain?: No Allergies No Known Allergies Allergy (Verified 01/02/25 14:40) Medications ?Medication ?Instructions ?Recorded ?Confirmed ?Type calcium 600 mg (as 1 ea PO DAILY 02/19/1801/02 History carbonate)-vitamin D3 5 mcg (200 unit) tablet (Calcium 600 + D(3)) ropinirole 0.25 mg tablet 0.25 mg PO QHS 03/29/2212/18 History meloxicam 7.5 mg tablet 7.5 mg PO QDAY 01/04/2412/18 History leuprolide (3 month) 22.5 mg (3 22.5 mg subcut Q12W #4 ea 02/12/24 01/02/25 Rx month) subcutaneous syringe ([employer]) losartan 50 mg tablet 50 mg PO QDAY 03/28/2401/02 History rosuvastatin 10 mg tablet 10 mg PO QDAY 03/28/2401/02 History enzalutamide 80 mg tablet (Xtandi) 160 mg (2 x 80 mg) PO DAILY 30 04/08/24 01/02/25 Rx days #60 tabs venlafaxine 37.5 mg tablet 37.5 mg PO DAILY 90 days #9 0 tabs 01/02/25 01/02/25 Rx Have you fallen in the past year?: No Central Venous Access Central Venous Access: No Laboratory Tests 01/02/25 13:40 WBC 6.1 Hgb 15.0 Hct 44.0 Plt Count 254 Absolute Neuts (auto) 3.0 Sodium 137 Potassium 4.1 Chloride 99 Carbon Dioxide 26.7 BUN 24 H Creatinine 0.80 Glucose 116 H Calcium 9.7 Total Bilirubin 0.39 AST 24 ALT 14 Alkaline Phosphatase 55 Total PSA < 0.02 Exam Physical Exam Narrative ECOG 0 Const alert, oriented x3 and no apparent distress General Appearance: comfortable and well kempt HEENT normocephalic Head and Scalp: normal to inspection Mouth: oral and palatal mucosa normal Eyes conjunctivae normal and no scleral icterus General Eye: normal appearance of both eyes Neck no lymphadenopathy, supple and no JVD Lymph Lymphatic: no lymphadenopathy noted Chest Chest: symmetrical chest wall rise Resp normal respiratory effort and clear to auscultation bilaterally Cardio regular rate and regular rhythm Jugular Venous Distention: Negative for JVD GI soft to palpation, non-tender, non-distended and hepatosplenomegaly no CVA tenderness Back/Spine no thoracic nor lumbar tenderness Extremity no clubbing, cyanosis or edema Skin no rashes or lesions noted Neuro oriented x3, CN's II-XII intact bilaterally, moves all extremities and no focal motor deficits Speech: speech normal Gait (Neuro): normal gait Psych mental status grossly normal and affect normal Coding Level of Care Code Off vis,est,level 4 Exam Problem Focused Diagnoses Prostate cancer C61 Regional lymph node metastasis present C77.9 Bone metastases C79.51 Hot flash in male R23.2 Immunizations Fluad 65yr up(PF)45 mcg(15 mcgx3)/0.5 mL intramuscular syringe Performing Provider: Sally San C D STILL OPERATOR, RADHAC Performing Location: [facility] Administered by: Anette Wolf on 01/02/25 14:55 Dose Route Admin Location Dispensed Lot Number Expiration Date Pack age NDC NDC Operator Control Room 0.5 mL IM Left Deltoid 0.5 mL [id number] 07/27/25 [id number] [employer]. VIS Given Date VIS Provided VIS Publication Date 01/02/25 Single Vaccine 20 Eligibility Eligibility Date Funding Source Not Applicable Assessment and Plan Assessment and Plan (1) Prostate cancer: Status: Chronic (2) Regional lymph node metastasis present: Status: Chronic (3) Bone metastases: Status: Chronic (4) Hot flash in male: Status: Chronic Orders: Orders Influenza Immunization Today Z23 - Encounter for immunization CBC W/Diff, Automated 02/12/25 C61 - Malignant neoplasm of prostate, C77.9 - Secondary and unspecified malignant neoplasm of lymph node, unspecified, C79.51 - Secondary malignant neoplasm of bone Comprehensive Metabolic Profil 02/12/25 C61 - Malignant neoplasm of prostate, C77.9 - Secondary and unspecified malignant neoplasm of lymph node, unspecified,C79.51 - Secondary malignant neoplasm of bone PSA,Total- Diagnostic 02/12/25 C61 - Malignant neoplasm of prostate, C77.9 - Secondary and unspecified malignant neoplasm of lymph node, unspecified, C79.51 - Secondary malignant neoplasm of bone Medications: Refilled venlafaxine 37.5 mg PO DAILY 90 tabs 3RF 90 days C61 - Malignant neoplasm of prostate, R23.2 - [place] Plan 64-year-old gentleman presented in 2018 with metastatic prostate cancer, stage IV (regional and nonregional lymph nodes and bones see HPI for details and course).? Diagnosis confirmed by a biopsy of retroperitoneal lymph nodes in September2017.??Cancer is microsatellite stable. October 2020 genetic testing at for a 47 gene panel showed no known pathogenicmutation, with a variant of uncertain significance. He , under the care of his urologist, received a dose of Lupron Daypro (6 months) in October 16 2017 with a significant drop of his PSA from > 154 to 13 onDe2017 and with a castrate level testosterone level confirmed December2017. He has had progressive changes consistent with bony metastatic disease between his initial presentation in September 2 December,.? These changes do not necessarily represent a castrate resistant disease but more likely the lag in response to LHRH agonist therapy.? Nonetheless he has widely spread bony metastatic disease (high volume), and therefore when he transferred his care to [facility], he went on and received 6 cycles of systemic chemotherapy with Taxotere prednisone March through June 2018 without excessive toxicities and there was further drop in his PSA. By late 2019 he appears to have an asymptomatic PSA relapse with no measurable disease.? His testosterone is at castrate level (last checked June 2020) July 2020 bone scan remained stable, however a CAT scan of the chest abdomen and pelvis shows a new subtle bone lesion at the lower thoracic spine (interestinglypatient has 13 rib bearing vertebral bodies). Nonetheless he remains asymptomatic. Was started on combined antiandrogen therapy with addition of Zytiga?prednisone July 2020 and is showing a clinical and PSA response. A Steady upward trend in PSA noted July 2022, although imaging by CAT scan and bone scan remained stable signifying an evolving resistance to Zytiga. Patient switched to Xtandi as of February 2023 and is showing another response to combined androgen deprivation therapy. Plan: 1.? Continue with androgen deprivation therapy (ADT) with Lupron Depot long- termand Xtandi. 2.? Follow-up with H&P and? PSA in 6 weeks. 3. Bone supportive therapy with Zometa? every 12 weeks. Due on 02/12/25. 4.? Continue with Effexor for symptomatic relief of hot flashes secondary to ADT. Rx refilled. Clinical Quality Measures Falls Risk Screening/Assistive Devices Have you fallen in the past year?: No 10/16/25 1504 <Electronically signed by Sally santiago C D STILL OPERATOR C D STILL OPERATOR-C> Date _ Sally Mena C D STILL OPERATOR C D STILL OPERATOR-C Cosigner Signature: Date (if applicable) CC: ~ Langley Korem Work Phone: Reason for referral (narrative)* Consultation (Routine) - Authorized Specialty Diagnoses / Procedures Referred By Contac t Referred To Contact Primary Care Procedures Follow Up In Primary Care Isiah Harding PA-C [address] [facility] Physician [place] [phone] Referral ID Status Reason Start Date Expiration Date V isits Requested Visits Authorized [id number] Authorized 07/04/2022 12/31/2022 1 1 * Imaging (Routine) - Authorized Specialty Diagnoses / Procedures Referred By Contac t Referred To Contact Radiology Diagnoses Chronic right-sided low back pain with right-sided sciatica Procedures XR lumbar spine complete 4+ views Isiah Harding PA-C [address] [facility] Physician [place] [phone] Referral ID Status Reason Start Date Expiration Date Visits Requested Visits Authorized [id number] Authorized Perform Procedure 07/04/2022 12/31/2022 1 1 * Imaging (Routine) - Authorized Specialty Diagnoses / Procedures Referred By Contac t Referred To Contact Radiology Diagnoses Chronic right-sided low back pain with right-sided sciatica Procedures XR thoracic spine complete 4+ views Isiah Harding PA-C [address] [facility] [place] [address] Referral ID Status Reason Start Date Expiration Date Visits Requested Visits Authorized [id number] Authorized Perform Procedure 07/04/2022 12/31/2022 1 1 * Imaging (Routine) - Authorized Specialty Diagnoses / Procedures Referred By Contac t Referred To Contact Radiology Diagnoses Postprandial vomiting Procedures US gallbladder Isiah Harding PA-C [address] [facility] [place] [address] Referral ID Status Reason Start Date Expiration Date Visits Requested Visits Authorized [id number] Authorized Perform Procedure 07/04/2022 12/31/2022 1 1 [facility] Work Phone: Reason for referral (narrative)* Diagnostic Procedure Only (Routine) - Authorized Specialty Diagnoses / Procedures Referred By Contac t Referred To Contact XR IMAGING Diagnoses Closed displaced subtrochanteric fracture of left femur with routine healing, subsequent encounter Procedures XR FEMUR GENERAL 2V AP/LAT LEFT RADIOLOGIC EXAMINATION FEMUR MINIMUM 2 VIEWS Johnson Zavala MD [address] [facility] [address] [place] [id number] Xr Imaging Referral ID Status Reason Start Date Expiration Date Visits Requested Visits Authorized [id number] Authorized Auto-Generat ed Referral 03/20/2022 03/19/2023 1 1 [facility] for referral (narrative)* Diagnostic Procedure Only (Routine) - Authorized Specialty Diagnoses / Procedures Referred By Contac t Referred To Contact XR IMAGING Diagnoses Closed displaced subtrochanteric fracture of left femur with routine healing, subsequent encounter Procedures XR FEMUR GENERAL 2V AP/LAT LEFT RADIOLOGIC EXAMINATION FEMUR MINIMUM 2 VIEWS Johnson Zavala MD [address] [place] [id number] Xr Imaging Referral ID Status Reason Start Date Expiration Date Visits Requested Visits Authorized [id number] Authorized Auto-Generat ed Referral 03/20/2022 03/19/2023 1 1 [facility] for referral (narrative)* Diagnostic Procedure Only (Routine) - Denied Specialty Diagnoses / Procedures Referred By Contac t Referred To Contact XR IMAGING Diagnoses Closed displaced subtrochanteric fracture of left femur with routine healing, subsequent encounter Procedures XR FEMUR GENERAL 2V AP/LAT LEFT RADIOLOGIC EXAMINATION FEMUR MINIMUM 2 VIEWS Johnson Zavala MD [address] [place] [address] [place] [address] Referral ID Status Reason Start Date Expiration Date V isits Requested Visits Authorized [id number] Denied Auto-Generate d Referral 12/01/2022 12/31/2023 1 0 [facility] for referral (narrative)* Diagnostic Procedure Only (Urgent) - Denied Specialty Diagnoses / Procedures Referred By Contac t Referred To Contact XR IMAGING Diagnoses Rib pain on left side Procedures XR RIBS/CHEST 3V AP RIB/OBLS/CXR LEFT RADEX RIBS UNI W/POSTEROANT CH MINIMUM 3 VIEWS Stephen Ness APRN.SOIL CONSERVATIONIST [address] [place] [address] [place] [address] Referral ID Status Reason Start Date Expiration Date V isits Requested Visits Authorized [id number] Denied Auto-Generate d Referral 05/11/2021 06/10/2022 1 1 [facility] for referral (narrative)* Consultation (Routine) - Authorized Specialty Diagnoses / Procedures Referred By Contac t Referred To Contact Orthopaedic Surgery / Orthopedic Surgery Diagnoses Primary osteoarthritis of both knees Procedures Follow Up In Orthopaedic Surgery Mariposa Abdi, VISUAL SPECIALIST-SOIL CONSERVATIONIST [address] [facility], [facility] [address] [place] [address] Referral ID Status Reason Start Date Expiration Date V isits Requested Visits Authorized [id number] Authorized 12/12/2023 12/11/2024 1 1 [facility] Work Phone: Reason for referral (narrative)No reason for referral [facility] Reason for visit Narrative* Diagnostic Procedure Only (Urgent) - Denied Specialty Diagnoses / Procedures Referred By Contac t Referred To Contact XR IMAGING Diagnoses Rib pain on left side Procedures XR RIBS/CHEST 3V AP RIB/OBLS/CXR LEFT RADEX RIBS UNI W/POSTEROANT CH MINIMUM 3 VIEWS Stephen Ness APRN.SOIL CONSERVATIONIST [address] [place] [address] [place] [address] Referral ID Status Reason Start Date Expiration Date V isits Requested Visits Authorized [id number] Denied Auto-Generate d Referral 05/11/2021 06/10/2022 [facility] Imaging (Routine) - Authorized Specialty Diagnoses / Procedures Referred By Contac t Referred To Contact Radiology Diagnoses Primary osteoarthritis of both knees Procedures XR knee 4+ views bilateral Kaiser Leal MD [address] [place] [address] Phone: tel: fax: Referral ID Status Reason Start Date Expiration Date Visits Requested Visits Authorized [id number] Authorized Perform Procedure 05/16/2024 05/16/2025 1 1 [facility] Work Phone: Revt[facility] for visit Narrative* Imaging (Routine) - Authorized Specialty Diagnoses / Procedures Referred By Contac t Referred To Contact Radiology Diagnoses Primary osteoarthritis of both knees Procedures XR knee 4+ views bilateral Kaiser Leal MD [address] [place] [address] Phone: tel: fax: Referral ID Status Reason Start Date Expiration Date Visits Requested Visits Authorized [id number] Authorized Perform Procedure 10/30/2024 10/30/2025 1 1 [facility] Work Phone: Reason for visit Narrative* Imaging (Routine) - Authorized Specialty Diagnoses / Procedures Referred By Marilee t Referred To Contact Radiology Diagnoses Injury of left shoulder, initial encounter Procedures XR shoulder left 2+ views Ness Mckinnon MD [address] [place] [address] Phone: tel: fax: Referral ID Status Reason Start Date Expiration Date Visits Requested Visits Authorized [id number] Authorized Perform Procedure 02/26/2026 1 1 [facility] Work Phone: Summary Purpose Family History Prostate cancer(185) Status:Active Unknown Family Member Name Dates Details Family history of hypertensi on: Mother, Father, Son, Sister(V17.49, Z82.49) Status:Active Family history of cerebrovas cular accident (CVA): Father(V17.1, Z82.3) Status:Active Family history of malignant neoplasm of breast: Sister, Paternal Grandmother(V16.3, Z80.3) Status:Active Family history of malignant neoplasm of prostate: Father, Brother(V16.42, Z80.42) Status:Active Family history of malignant neoplasm of colon: Paternal Grandfather(V16.0, Z80.0) Status:Active Unknown Family Member Name Dates Details Family history of hypertensi on: Mother, Father, Son, Sister(V17.49, Z82.49) Status:Active Family history of cerebrovas cular accident (CVA): Father(V17.1, Z82.3) Status:Active Family history of malignant neoplasm of breast: Sister, Paternal Grandmother(V16.3, Z80.3) Status:Active Family history of malignant neoplasm of prostate: Father, Brother(V16.42, Z80.42) Status:Active Family history of malignant neoplasm of colon: Paternal Grandfather(V16.0, Z80.0) Status:Active Unknown Family Member Name Dates Details Family history of hypertensi on: Mother, Father, Son, Sister(V17.49, Z82.49) Status:Active Family history of cerebrovas cular accident (CVA): Father(V17.1, Z82.3) Status:Active Family history of malignant neoplasm of breast: Sister, Paternal Grandmother(V16.3, Z80.3) Status:Active Family history of malignant neoplasm of prostate: Father, Brother(V16.42, Z80.42) Status:Active Family history of malignant neoplasm of colon: Paternal Grandfather(V16.0, Z80.0) Status:Active Unknown Family Member Name Dates Details Family history of hypertensi on: Mother, Father, Son, Sister(V17.49, Z82.49) Status:Active Family history of cerebrovas cular accident (CVA): Father(V17.1, Z82.3) Status:Active Family history of malignant neoplasm of prostate: Father, Brother(V16.42, Z80.42) Status:Active Family history of malignant neoplasm of breast: Sister, Paternal Grandmother(V16.3, Z80.3) Status:Active Family history of malignant neoplasm of colon: Paternal Grandfather(V16.0, Z80.0) Status:Active Unknown Family Member Name Dates Details Family history of hypertensi on: Mother, Father, Son, Sister(V17.49, Z82.49) Status:Active Family history of cerebrovas cular accident (CVA): Father(V17.1, Z82.3) Status:Active Family history of malignant neoplasm of prostate: Father, Brother(V16.42, Z80.42) Status:Active Family history of malignant neoplasm of breast: Sister, Paternal Grandmother(V16.3, Z80.3) Status:Active Family history of malignant neoplasm of colon: Paternal Grandfather(V16.0, Z80.0) Status:Active Unknown Family Member Name Dates Details Family history of cerebrovas cular accident (CVA): Father(V17.1, Z82.3) Status:Active Family history of malignant neoplasm of prostate: Father, Brother(V16.42, Z80.42) Status:Active Family history of malignant neoplasm of breast: Sister, Paternal Grandmother(V16.3, Z80.3) Status:Active Family history of malignant neoplasm of colon: Paternal Grandfather(V16.0, Z80.0) Status:Active Family history of hypertensi on: Mother, Father, Sister, Brother(V17.49, Z82.49) Status:Active Unknown Family Member Name Dates Details Family history of cerebrovas cular accident (CVA): Father(V17.1, Z82.3) Status:Active Family history of malignant neoplasm of prostate: Father, Brother(V16.42, Z80.42) Status:Active Family history of malignant neoplasm of breast: Sister, Paternal Grandmother(V16.3, Z80.3) Status:Active Family history of malignant neoplasm of colon: Paternal Grandfather(V16.0, Z80.0) Status:Active Family history of hypertensi on: Mother, Father, Sister, Brother(V17.49, Z82.49) Status:Active Unknown Family Member Name Dates Details Family history of hypertensi on: Mother, Father, Sister, Brother(V17.49, Z82.49) Status:Active Family history of cerebrovas cular accident (CVA): Father(V17.1, Z82.3) Status:Active Family history of malignant neoplasm of prostate: Father, Brother(V16.42, Z80.42) Status:Active Family history of malignant neoplasm of breast: Sister, Paternal Grandmother(V16.3, Z80.3) Status:Active Family history of malignant neoplasm of colon: Paternal Grandfather(V16.0, Z80.0) Status:Active Unknown Family Member Name Dates Details Family history of cerebrovas cular accident (CVA): Father(V17.1, Z82.3) Status:Active Family history of malignant neoplasm of prostate: Father, Brother(V16.42, Z80.42) Status:Active Family history of malignant neoplasm of breast: Sister, Paternal Grandmother(V16.3, Z80.3) Status:Active Family history of malignant neoplasm of colon: Paternal Grandfather(V16.0, Z80.0) Status:Active Family history of hypertensi on: Mother, Father, Sister, Brother(V17.49, Z82.49) Status:Active Unknown Family Member Name Dates Details Family history of cerebrovas cular accident (CVA): Father(V17.1, Z82.3) Status:Active Family history of malignant neoplasm of prostate: Father, Brother(V16.42, Z80.42) Status:Active Family history of malignant neoplasm of breast: Sister, Paternal Grandmother(V16.3, Z80.3) Status:Active Family history of malignant neoplasm of colon: Paternal Grandfather(V16.0, Z80.0) Status:Active Family history of hypertensi on: Mother, Father, Sister, Brother(V17.49, Z82.49) Status:Active Unknown Family Member Name Dates Details Family history of cerebrovas cular accident (CVA): Father(V17.1, Z82.3) Status:Active Family history of malignant neoplasm of prostate: Father, Brother(V16.42, Z80.42) Status:Active Family history of malignant neoplasm of breast: Sister, Paternal Grandmother(V16.3, Z80.3) Status:Active Family history of malignant neoplasm of colon: Paternal Grandfather(V16.0, Z80.0) Status:Active Family history of hypertensi on: Mother, Father, Sister, Brother(V17.49, Z82.49) Status:Active Relationship Condition Age at Onset Recorded Date/T nestor father Malignant neoplasm of prostate Unknown sister Malignant neoplasm of breast Unknown grandmother Malignant neoplasm of breast Unknown grandfather Malignant neoplasm of colon Unknown Unknown Family Member Name Dates Details Family history of cerebrovas cular accident (CVA): Father(V17.1, Z82.3) Status:Active Family history of malignant neoplasm of prostate: Father, Brother(V16.42, Z80.42) Status:Active Family history of malignant neoplasm of breast: Sister, Paternal Grandmother(V16.3, Z80.3) Status:Active Family history of malignant neoplasm of colon: Paternal Grandfather(V16.0, Z80.0) Status:Active Family history of hypertensi on: Mother, Father, Sister, Brother(V17.49, Z82.49) Status:Active Unknown Family Member Name Dates Details Family history of cerebrovas cular accident (CVA): Father(V17.1, Z82.3) Status:Active Family history of malignant neoplasm of prostate: Father, Brother(V16.42, Z80.42) Status:Active Family history of malignant neoplasm of breast: Sister, Paternal Grandmother(V16.3, Z80.3) Status:Active Family history of malignant neoplasm of colon: Paternal Grandfather(V16.0, Z80.0) Status:Active Family history of hypertensi on: Mother, Father, Sister, Brother(V17.49, Z82.49) Status:Active Unknown Family Member Name Dates Details Family history of cerebrovas cular accident (CVA): Father(V17.1, Z82.3) Status:Active Family history of malignant neoplasm of prostate: Father, Brother(V16.42, Z80.42) Status:Active Family history of malignant neoplasm of breast: Sister, Paternal Grandmother(V16.3, Z80.3) Status:Active Family history of malignant neoplasm of colon: Paternal Grandfather(V16.0, Z80.0) Status:Active Family history of hypertensi on: Mother, Father, Sister, Brother(V17.49, Z82.49) Status:Active Unknown Family Member Name Dates Details Family history of cerebrovas cular accident (CVA): Father(V17.1, Z82.3) Status:Active Family history of malignant neoplasm of prostate: Father, Brother(V16.42, Z80.42) Status:Active Family history of malignant neoplasm of breast: Sister, Paternal Grandmother(V16.3, Z80.3) Status:Active Family history of malignant neoplasm of colon: Paternal Grandfather(V16.0, Z80.0) Status:Active Family history of hypertensi on: Mother, Father, Sister, Brother(V17.49, Z82.49) Status:Active Unknown Family Member Name Dates Details Family history of cerebrovas cular accident (CVA): Father(V17.1, Z82.3) Status:Active Family history of malignant neoplasm of prostate: Father, Brother(V16.42, Z80.42) Status:Active Family history of malignant neoplasm of breast: Sister, Paternal Grandmother(V16.3, Z80.3) Status:Active Family history of malignant neoplasm of colon: Paternal Grandfather(V16.0, Z80.0) Status:Active Family history of hypertensi on: Mother, Father, Sister, Brother(V17.49, Z82.49) Status:Active Unknown Family Member Name Dates Details Family history of cerebrovas cular accident (CVA): Father(V17.1, Z82.3) Status:Active Family history of malignant neoplasm of prostate: Father, Brother(V16.42, Z80.42) Status:Active Family history of malignant neoplasm of breast: Sister, Paternal Grandmother(V16.3, Z80.3) Status:Active Family history of malignant neoplasm of colon: Paternal Grandfather(V16.0, Z80.0) Status:Active Family history of hypertensi on: Mother, Father, Sister, Brother(V17.49, Z82.49) Status:Active Unknown Family Member Name Dates Details Family history of cerebrovas cular accident (CVA): Father(V17.1, Z82.3) Status:Active Family history of malignant neoplasm of prostate: Father, Brother(V16.42, Z80.42) Status:Active Family history of malignant neoplasm of breast: Sister, Paternal Grandmother(V16.3, Z80.3) Status:Active Family history of malignant neoplasm of colon: Paternal Grandfather(V16.0, Z80.0) Status:Active Family history of hypertensi on: Mother, Father, Sister, Brother(V17.49, Z82.49) Status:Active Unknown Family Member Name Dates Details Family history of cerebrovas cular accident (CVA): Father(V17.1, Z82.3) Status:Active Family history of malignant neoplasm of prostate: Father, Brother(V16.42, Z80.42) Status:Active Family history of malignant neoplasm of breast: Sister, Paternal Grandmother(V16.3, Z80.3) Status:Active Family history of malignant neoplasm of colon: Paternal Grandfather(V16.0, Z80.0) Status:Active Family history of hypertensi on: Mother, Father, Sister, Brother(V17.49, Z82.49) Status:Active Unknown Family Member Name Dates Details Family history of cerebrovas cular accident (CVA): Father(V17.1, Z82.3) Status:Active Family history of malignant neoplasm of prostate: Father, Brother(V16.42, Z80.42) Status:Active Family history of malignant neoplasm of breast: Sister, Paternal Grandmother(V16.3, Z80.3) Status:Active Family history of malignant neoplasm of colon: Paternal Grandfather(V16.0, Z80.0) Status:Active Family history of hypertensi on: Mother, Father, Sister, Brother(V17.49, Z82.49) Status:Active Unknown Family Member Name Dates Details Family history of cerebrovas cular accident (CVA): Father(V17.1, Z82.3) Status:Active Family history of malignant neoplasm of prostate: Father, Brother(V16.42, Z80.42) Status:Active Family history of malignant neoplasm of breast: Sister, Paternal Grandmother(V16.3, Z80.3) Status:Active Family history of malignant neoplasm of colon: Paternal Grandfather(V16.0, Z80.0) Status:Active Family history of hypertensi on: Mother, Father, Sister, Brother(V17.49, Z82.49) Status:Active Advance Directives Advance Directive Response Recorded Date/ Time Advance Directives on File No 2022 2:43pm Name of Medical Power of Chefs Senia Kapadia, March 29, 2022 2:43pm Advance Directives Yes March 29, 2022 2:43pm Living Will Yes March 29 2:43pm Power of Chefs Yes March 29, 2022 2:43pm Documents on File Type Date Recorded 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 Manufacturing Industrial Engineer Expl 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 Living Will 12/17/2008 Advance Directive Response Recorded Date/ Time Advance Directives on File No Iggy traylor 2022 2:33pm Name of Medical Power of Chefs Senia Kapadia, December 14, 2022 2:33pm Advance Directives Yes November 2:33pm Living Will Yes December 14, 2022 2:33pm Power of Chefs Yes November 2:33pm Documents on File Type Date Recorded Patient Manufacturing Industrial Engineer Expl anation Living Will 12/17/2008 Documents on File Type Date Recorded Patient Manufacturing Industrial Engineer Expl anation Advance Directives and Living Will 12/17/2008 Living Will 12/17/2008 Advance Directive Response Recorded Date/ Time Advance Directives on File No June 06, 2024 11:29am Living Will Yes June 06, 2024 11:29am Do you have a Healthcare Power of Chefs? Yes June 06, 2024 11:29am Name of Medical Power of Chefs Senia Kapadia, June 06, 2024 11:29am Advance Directives Yes June 06 025 11:29am Advance Directive Response Recorded Date/ Time Advance Directives on File No Iggy [email or web address] 2:22pm Living Will Yes November 21 2:22pm Do you have a Healthcare Power of Chefs? Yes November 21, 2024 2:22pm Name of Medical Power of Chefs Senia Kapadia, November 21, 2024 2:22pm Advance Directives Yes November 2:22pm Chief Complaint * Patient here today to get established as a new patient, last seen by PCP 5-6 years ago. * Patient has been noticing borderline blood pressures x 3-4 months and states past 1-2 weeks having chest pressure when sleeping, intermittently. * Patient also mentions having restless legs x 4 years that has been worsening and keeping him up at night. * Colonoscopy done 4 years ago, prostate and PSA followed by Dr. Jimenez. * Flulaval vaccine 0.5 cc given left IM deltoid without incident, patient tolerated well without complaints. * LOT [id number] * EXP 09/16/2022 * [facility] [id number] * Patient here today to get established as a new patient, last seen by PCP 5-6 years ago. * Patient has been noticing borderline blood pressures x 3-4 months and states past 1-2 weeks having chest pressure when sleeping, intermittently. * Patient also mentions having restless legs x 4 years that has been worsening and keeping him up at night. * Colonoscopy done 4 years ago, prostate and PSA followed by Dr. Jimenez. * Flulaval vaccine 0.5 cc given left IM deltoid without incident, patient tolerated well without complaints. * LOT [id number] * EXP 09/16/2022 * [facility] [id number] Chief Complaint and Reason for Visit Chief Complaint 6 WKS - LABS - LUPRO N/ZOMETA 6 WKS - LABS 6 WKS - LABS - LUPRON/ZOMETA Eligard PROSTATE CA Reason for Visit Bone metastases Hot flash in male Prostate cancer Regional lymph node metastasis present Bone metastases Hot flash in male Prostate cancer Regional lymph node metastasis present Bone metastases Hot flash in male Prostate cancer Regional lymph node metastasis present Bone metastases Hot flash in male Prostate cancer Regional lymph node metastasis present Educational circumstance Neck pain Chief Complaint 6 WKS - LABS - LUPRO N/ZOMETA 6 WKS - LABS 6 WKS - LABS - LUPRON/ZOMETA Eligard PROSTATE CA PROSTATE CA Reason for Visit Bone metastases Hot flash in male Prostate cancer Regional lymph node metastasis present Bone metastases Hot flash in male Prostate cancer Regional lymph node metastasis present Bone metastases Hot flash in male Prostate cancer Regional lymph node metastasis present Bone metastases Hot flash in male Prostate cancer Regional lymph node metastasis present Educational circumstance Neck pain Chief Complaint 4 WKS - LABS 4 WKS - LABS 4WKS LABS LUPRON/ZOMETA 6 WKS - LABS labs w/IV start Malignant neoplasm of prostate Reason for Visit Bone metastases Hot flash in male Prostate cancer Regional lymph node metastasis present Bone metastases Hot flash in male Prostate cancer Regional lymph node metastasis present Bone metastases Hot flash in male Prostate cancer Regional lymph node metastasis present Bone metastases Hot flash in male Prostate cancer Regional lymph node metastasis present Bone metastases Hot flash in male Prostate cancer Regional lymph node metastasis present Educational circumstance Neck pain Chief Complaint Admit Date 5 WKS - LABS May 01, 2024 12:24pm 1MO LABS ZOMETA/LUPRON June 06, 2024 9:48am 6 WKS - LABS July 18, 2024 1:02pm Eligard August 29, 2024 10:4 5am 6 WKS - LABS - LUPRON/ZOMETA August 29, 2024 10:48am Reason for Visit Admit Date Bone metastases May 01, 2024 12:24pm Hot flash in male May 01, 2024 12:24pm Prostate cancer May 01, 2024 12:24pm Regional lymph node metastasis present F ebruary 2024 12:24pm Bone metastases June 06, 2024 9:4 8am Hot flash in male June 06, 2024 9:4 8am Prostate cancer June 06, 2024 9:4 8am Regional lymph node metastasis present M [facility] 2024 9:48am Bone metastases July 18, 2024 1:02pm Hot flash in male July 18, 2024 1:02pm Prostate cancer July 18, 2024 1:02pm Regional lymph node metastasis present M ay 2024 1:02pm Bone metastases August 29, 2024 10:4 5am Hot flash in male August 29, 2024 10:4 5am Prostate cancer August 29, 2024 10:4 5am Regional lymph node metastasis present J [facility] 2024 10:45am Educational circumstance August 29, 2024 10:45am Neck pain August 29, 2024 10:4 5am Bone metastases August 29, 2024 10:4 8am Hot flash in male August 29, 2024 10:4 8am Prostate cancer August 29, 2024 10:4 8am Regional lymph node metastasis present J formerly [facility] 2024 10:48am Chief Complaint Admit Date 6 WKS - LABS July 18, 2024 1:02pm 6 WKS - LABS - LUPRON/ZOMETA August 29, 2024 10:48am 6WKS LABS October 10, 2024 10:4 1am Eligard October 10, 2024 10:4 5am Reason for Visit Admit Date Bone metastases July 18, 2024 1:02pm Hot flash in male July 18, 2024 1:02pm Prostate cancer July 18, 2024 1:02pm Regional lymph node metastasis present M ay 2024 1:02pm Bone metastases August 29, 2024 10:4 8am Hot flash in male August 29, 2024 10:4 8am Prostate cancer August 29, 2024 10:4 8am Regional lymph node metastasis present J [facility] 2024 10:48am Bone metastases October 10, 2024 10:4 5am Hot flash in male October 10, 2024 10:4 5am Prostate cancer October 10, 2024 10:4 5am Regional lymph node metastasis present J [facility] 2024 10:45am Educational circumstance October 10, 2024 10:45am Neck pain October 10, 2024 10:4 5am Chief Complaint Admit Date 6 WKS - LABS - LUPRON/ZOMETA August 29, 2024 10:48am 6WKS LABS October 10, 2024 10:4 1am 6 WKS - LABS - ZOMETA/LUPRON November [id number] 12:36pm Eligard November 21, 2024 12:45pm Reason for Visit Admit Date Bone metastases August 29, 2024 10:4 8am Hot flash in male August 29, 2024 10:4 8am Prostate cancer August 29, 2024 10:4 8am Regional lymph node metastasis present J [facility] 2024 10:48am Bone metastases October 10, 2024 10:4 1am Hot flash in male October 10, 2024 10:4 1am Prostate cancer October 10, 2024 10:4 1am Regional lymph node metastasis present J florecita 2024 10:41am Bone metastases November 21, 2024 12:36pm Hot flash in male November 21, 2024 12:36pm Prostate cancer November 21, 2024 12:36pm Regional lymph node metastasis present S eptember 2024 12:36pm Bone metastases November 21, 2024 12:45pm Hot flash in male November 21, 2024 12:45pm Prostate cancer November 21, 2024 12:45pm Regional lymph node metastasis present S eptember 2024 12:45pm Educational circumstance November 21, 2024 12:45pm Neck pain November 21, 2024 12:45pm Chief Complaint Admit Date 6WKS LABS October 10, 2024 10:4 1am 6 WKS - LABS - ZOMETA/LUPRON November 212024 12:36pm 6 WKS - LABS January 02, 2025 1 :36pm Eligard January 02, 2025 1 :45pm Reason for Visit Admit Date Bone metastases October 10, 2024 10:4 1am Hot flash in male October 10, 2024 10:4 1am Prostate cancer October 10, 2024 10:4 1am Regional lymph node metastasis present J florecita 2024 10:41am Bone metastases November 21, 2024 12:36pm Hot flash in male November 21, 2024 12:36pm Prostate cancer November 21, 2024 12:36pm Regional lymph node metastasis present S eptember 2024 12:36pm Bone metastases January 02, 2025 1 :36pm Hot flash in male January 02, 2025 1 :36pm Prostate cancer January 02, 2025 1 :36pm Regional lymph node metastasis present O ctober 2024 1:36pm Bone metastases January 02, 2025 1 :45pm Hot flash in male January 02, 2025 1 :45pm Prostate cancer January 02, 2025 1 :45pm Regional lymph node metastasis present O ctober 2024 1:45pm Educational circumstance January 02 1:45pm Neck pain January 02, 2025 1 :45pm Reason for Referral Specialty Diagnoses / Procedures Referred By Contac t Referred To Contact Radiology Diagnoses Chronic pain of both knees Procedures XR femur left 2+ views Emy Velez, VISUAL SPECIALIST-SOIL CONSERVATIONIST [address] [facility] [place] [address] Referral ID Status Reason Start Date Expiration Date Visits Requested Visits Authorized [id number] Authorized Perform Procedure 12/01/2023 11/30/2024 1 1 Specialty Diagnoses / Procedures Referred By Contac t Referred To Contact Radiology Diagnoses Chronic pain of both knees Procedures XR knee left 3 views Emy Velez, VISUAL SPECIALIST-SOIL CONSERVATIONIST [address] [facility] [place] [address] Referral ID Status Reason Start Date Expiration Date Visits Requested Visits Authorized [id number] Authorized Perform Procedure 12/01/2023 11/30/2024 1 1 Specialty Diagnoses / Procedures Referred By Contac t Referred To Contact Radiology Diagnoses Chronic pain of both knees Procedures XR knee right 3 views Emy Velez, VISUAL SPECIALIST-SOIL CONSERVATIONIST [address] [facility] [place] [address] Referral ID Status Reason Start Date Expiration Date Visits Requested Visits Authorized [id number] Authorized Perform Procedure 12/01/2023 11/30/2024 1 1 Additional Source Comments (unrecognized sect ion and content) No Status Records FoundNo Status Records FoundNo Status Records FoundNo Status Records FoundNo Status Records FoundNo Status Records FoundNo Status Records FoundNo Status Records FoundNo Status Records FoundNo Status Records FoundNo Status Records FoundNo Status Records FoundNo Status Records FoundNo Status Records Found INFORMATION SOURCE (unrecogn ized section and content) DATE CREATED AUTHOR 09/06/2017 [facility] DATE CREATED AUTHOR AUTHOR'S ORGANIZ ATION 01/30/2018 [facility] DATE CREATED AUTHOR AUTHOR'S ORGANIZ ATION 02/27/2018 [facility] DATE CREATED AUTHOR AUTHOR'S ORGANIZ ATION 04/10/2020 [facility] DATE CREATED AUTHOR AUTHOR'S ORGANIZ ATION 05/25/2022 [facility] DATE CREATED AUTHOR AUTHOR'S ORGANIZ ATION 09/03/2022 [facility] DATE CREATED AUTHOR AUTHOR'S ORGANIZ ATION 11/12/2022 [facility] DATE CREATED AUTHOR AUTHOR'S ORGANIZ ATION 11/19/2022 [facility] DATE CREATED AUTHOR AUTHOR'S ORGANIZ ATION 12/02/2022 [facility] DATE CREATED AUTHOR AUTHOR'S ORGANIZ ATION 05/16/2024 [facility] DATE CREATED AUTHOR AUTHOR'S ORGANIZ ATION 11/13/2024 [facility] DATE CREATED AUTHOR AUTHOR'S ORGANIZ ATION 01/27/2025 [facility] DATE CREATED AUTHOR AUTHOR'S ORGANIZ ATION 01/28/2025 [facility] DATE CREATED AUTHOR AUTHOR'S ORGANIZ ATION 01/29/2025 [facility] <item> Privacy Markings (unrecogniz ed section and content) Section Author: Senia Robert PROHIBITION ON REDISCLOSURE OF CONFIDENTIAL INFORMATION This notice accompanies a disclosure of information concerning a client made to you with the consent of such client. Care Teams (unrecognized sec tion and content) Team Status: Active Member Role Status Dates No Primary Care Physician Family Provider Active SANDEE Camilo Primary Care Provider Active Team Status: Inactive Member Role Status Dates No Primary Care Physician Primary Care Provider, Refer ring Provider Active Dr. Luis Cooney MD Attending Provider Active Team Status: Active Member Role Status Dates Dr. Sahara Rosen MD Referring Provider Active Dr. Luis Cooney MD Attending Provider Active No Primary Care Physician Primary Care Provider, Famil y Provider Active Team Status: Inactive Member Role Status Dates Dr. 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 Writer Relationship Specialty Start Date End Date Isiah Harding PA-C [address] [facility] Physician [place], [place] [id number] PCP - General 03/17/22 Isiah Harding PA-C [address] [facility] Phys[facility] [place], [place] [id number] PCP - Employee ACO PCP 03/20/22 Newspaper Writer Relationship Specialty Start Date End Date Pura Beckman (Hist) [facility] [address] [place], [place] [id number] PCP - General 06/23/03 Newspaper Writer Relationship Specialty Start Date End Date Pura Beckman (Hist) [facility] [address] [place], [place] [id number] PCP - General 06/23/03 Alaina Scott, ELISHA.SOIL CONSERVATIONIST [address] [place] [address] Referring Internal Medicine 09/01/22 Johnson Zavala MD [address] [address] Home Care Provider Orthopedics 09/01/22 Raquel Fournier, PT [address] [place], [place] [id number] [employer] Post Acute Care 09/01/22 Newspaper Writer Relationship Specialty Start Date End Date Pura Beckman (Hist) [facility] [address] [place], [place] [address] PCP - General 06/23/03 Alaina Scott, ELISHA.SOIL CONSERVATIONIST [address] [place] [address] Referring Internal Medicine 09/01/22 Johnson Zavala MD [address] [place] [address] Home Care Provider Orthopedics 09/01/22 Raquel Fournier, PT [address] [place] [address] Boiler Washer Post Acute Care 09/01/22 Newspaper Writer Relationship Specialty Start Date End Date Pura Beckman (Hist) [facility] [address] [place] [address] PCP - General 06/23/03 Alaina Scott, ELISHA.SOIL CONSERVATIONIST [address] [facility] [place] [address] Referring Internal Medicine 09/01/22 Johnson Zavala MD [address] [place] [address] Home Care Provider Orthopedics 09/01/22 Raquel Fournier, PT [address] [place] [address] Boiler Washer Post Acute Care 09/01/22 Newspaper Writer Relationship Specialty Start Date End Date Pura Beckman (Hist) [facility] [address] [place] [address] PCP - General 06/23/03 Alaina Scott, ELISHA.SOIL CONSERVATIONIST 1 [facility] [place] [address] Referring Internal Medicine 09/01/22 Johnson Zavala MD [address] [place] [address] Home Care Provider Orthopedics 09/01/22 Raquel Fournier, PT [address] [place] [address] Boiler Washer Post Acute Care 09/01/22 Newspaper Writer Relationship Specialty Start Date End Date Pura Beckman (Hist) [facility] [address] [place] [address] PCP - General 06/23/03 Alaina Scott APRN.SOIL CONSERVATIONIST 1 [place] [address] Referring Internal Medicine 09/01/22 Johnson Zavala MD [address] [place] [id number] Home Care Provider Orthopedics 09/01/22 Raquel Fournier, PT [address] [place] [address] Boiler Washer Post Acute Care 09/01/22 Team Status: Inactive Member Role Status Dates SANDEE Camilo Primary Care Provider, Referring Pro vider Active Dr. Luis Cooney MD Attending Provider Active Team Status: Inactive Member Role Status Dates SANDEE Camilo Primary Care Provider Active Dr. 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 Writer Relationship Specialty Start Date End Date Isiah Harding PA-C [address] [facility] [place] [address] PCP - General 03/17/22 Isiah Harding PA-C [address] [facility] [place] [address] PCP - Employee ACO PCP 03/20/22 Newspaper Writer Relationship Specialty Start Date End Date Isiah Harding PA-C [address] [facility] [place] [address] PCP - General 03/17/22 Isiah Harding PA-C [address] [place] [address], [facility] [address] [place] [address] PCP - Employee ACO PCP 03/20/22 Newspaper Writer Relationship Specialty Start Date End Date Pura Beckman (Hist) [facility] [address] [place], [place] [id number] PCP - General 06/23/03 Newspaper Writer Relationship Specialty Start Date End Date Emy Velez, VISUAL SPECIALIST-SOIL CONSERVATIONIST [address] [facility] [place] [address] PCP - General Family Medicine 12/01/23 Newspaper Writer Relationship Specialty Start Date End Date Emy Velez VISUAL SPECIALIST-SOIL CONSERVATIONIST [address] [facility] [place] [address] PCP - General Family Medicine 12/01/23 Newspaper Writer Relationship Specialty Start Date End Date Emy Velez, VISUAL SPECIALIST-SOIL CONSERVATIONIST [address] [facility] [place] [address] PCP - General Family Medicine 12/01/23 Newspaper Writer Relationship Specialty Start Date End Date Emy Velez, VISUAL SPECIALIST-SOIL CONSERVATIONIST [address] [facility] [place] [address] PCP - General Family Medicine 12/01/23 Mariposa Abdi, VISUAL SPECIALIST-SOIL CONSERVATIONIST PCP - Employee ACO PCP 01/19/24 Newspaper Writer Relationship Specialty Start Date End Date Emy Velez VISUAL SPECIALIST-SOIL CONSERVATIONIST [address] [facility] [place] [address] PCP - General Family Medicine 12/01/23 Mariposa Abdi, VISUAL SPECIALIST-SOIL CONSERVATIONIST PCP - Employee ACO PCP 01/19/24 Newspaper Writer Relationship Specialty Start Date End Date Emy Velez VISUAL SPECIALIST-SOIL CONSERVATIONIST [address] [facility] [place] [address] PCP - General Family Medicine 12/01/23 Mariposa Abdi, VISUAL SPECIALIST-SOIL CONSERVATIONIST PCP - Employee ACO PCP 01/19/24 Newspaper Writer Relationship Specialty Start Date End Date Emy Velez VISUAL SPECIALIST-SOIL CONSERVATIONIST [address] [facility] [place] [address] PCP - General Family Medicine 12/01/23 Mariposa Abdi, VISUAL SPECIALIST-SOIL CONSERVATIONIST PCP - Employee ACO PCP 01/19/24 Newspaper Writer Relationship Specialty Start Date End Date Emy Velez, VISUAL SPECIALIST-SOIL CONSERVATIONIST [address] [facility] [place] [address] PCP - General Family Medicine 12/01/23 Emy Velez, VISUAL SPECIALIST-SOIL CONSERVATIONIST [address] [facility], [address] [address] PCP - Employee ACO PCP 04/20/24 Newspaper Writer Relationship Specialty Start Date End Date Emy Velez APRN-CHRISTIANO [address] [facility] [place] [address] PCP - General Family Medicine 12/01/23 Emy Velez APRN-SOIL CONSERVATIONIST [address] [facility], [address] [place] [address] PCP - Employee ACO PCP 04/20/24 Team Status: Active Member Role Status Dates SANDEE Camilo Primary Care Provider Active Team Status: Inactive Member Role Status Dates SANDEE Camilo Primary Care Provider Active S tart: May 01, 2024 End: May 01, 2024 SANDEE Camilo Referring Provider Active Star t: May 01, 2024 End: May 01, 2024 Sally San C D STILL OPERATOR, C D STILL OPERATOR-C Attending Provider Active Start: May 01, 2024 End: May 01, 2024 Team Status: Inactive Member Role Status Dates SANDEE Camilo Primary Care Provider Active S tart: June 06, 2024 End: June 06, 2024 SNADEE Camilo Referring Provider Active Star t: June 06, 2024 End: June 06, 2024 Sally San C D STILL OPERATOR, C D STILL OPERATOR-C Attending Provider Active Start: June 06, 2024 End: June 06, 2024 Team Status: Inactive Member Role Status Dates SANDEE Camilo Primary Care Provider Active S tart: July 18, 2024 End: July 18, 2024 SANDEE Camilo Referring Provider Active Star t: July 18, 2024 End: July 18, 2024 Sally San C D STILL OPERATOR, C D STILL OPERATOR-C Attending Provider Active Start: July 18, 2024 End: July 18, 2024 Team Status: Active Member Role Status Dates Dr. Sahara Rosen MD Referring Provider Active Start: August 29, 2024 Dr. Luis Cooney MD Attending Provider Active Start: August 29, 2024 No Primary Care Physician Primary Care Provider Active Start: August 29, 2024 No Primary Care Physician Family Provider Active Start: August 29, 2024 Team Status: Inactive Member Role Status Dates SANDEE Camilo Primary Care Provider Active S tart: August 29, 2024 End: August 29, 2024 Isiah Harding PA Referring Provider Active Star t: August 29, 2024 End: August 29, 2024 Dr. Luis Cooney MD Attending Provider Active Start: August 29, 2024 End: August 29, 2024 Team Status: Active Member Role/Relationship Status Dates SANDEE Camilo Primary Care Provider Active Team Status: Inactive Member Role/Relationship Status Dates Isiah Harding PA Primary Care Provider Active S tart: July 18, 2024 End: July 18, 2024 Isiah Harding PA Referring Provider Active Star t: July 18, 2024 End: July 18, 2024 Sally San NP, C D STILL OPERATOR-C Attending Provider Active Start: July 18, 2024 End: July 18, 2024 Team Status: Inactive Member Role/Relationship Status Dates Isiah Harding PA Primary Care Provider Active S tart: August 29, 2024 End: August 29, 2024 Isiah Harding PA Referring Provider Active Star t: August 29, 2024 End: August 29, 2024 Dr. Luis Cooney MD Attending Provider Active Start: August 29, 2024 End: August 29, 2024 Team Status: Inactive Member Role/Relationship Status Dates SANDEE Camilo Primary Care Provider Active S tart: October 10, 2024 End: October 10, 2024 Isiah Harding PA Referring Provider Active Star t: October 10, 2024 End: October 10, 2024 Sally San NP, C D STILL OPERATOR-C Attending Provider Active Start: October 10, 2024 End: October 10, 2024 Team Status: Active Member Role/Relationship Status Dates Dr. Sahara Rosen MD Referring Provider Active Start: October 10, 2024 Dr. Luis Cooney MD Attending Provider Active Start: October 10, 2024 No Primary Care Physician Primary Care Provider Active Start: October 10, 2024 No Primary Care Physician Family Provider Active Start: October 10, 2024 Newspaper Writer Relationship Specialty Start Date End Date Emy Velez, VISUAL SPECIALIST-SOIL CONSERVATIONIST [address] [facility], [place] [address] PCP - Employee ACO PCP 04/20/24 Newspaper Writer Relationship Specialty Start Date End Date Emy Velez APRN-SOIL CONSERVATIONIST [address] [facility], [address] [place] [address] PCP - Employee ACO PCP 04/20/24 Newspaper Writer Relationship Specialty Start Date End Date RosieEmy VISUAL SPECIALIST-SOIL CONSERVATIONIST [address] [facility], [address] [place] [address] PCP - Employee ACO PCP 04/20/24 Newspaper Writer Relationship Specialty Start Date End Date RosieEmy VISUAL SPECIALIST-SOIL CONSERVATIONIST [address] [facility], [address] [place] [address] PCP - Employee ACO PCP 04/20/24 Team Status: Inactive Member Role/Relationship Status Dates SANDEE Camilo Primary Care Provider Active S tart: August 29, 2024 End: August 29, 2024 SANDEE Camilo Referring Provider Active Star t: August 29, 2024 End: August 29, 2024 Dr. Luis Cooney MD Attending Provider Active Start: August 29, 2024 End: August 29, 2024 Team Status: Inactive Member Role/Relationship Status Dates SANDEE Camilo Primary Care Provider Active S tart: October 10, 2024 End: October 10, 2024 SANDEE Camilo Referring Provider Active Star t: October 10, 2024 End: October 10, 2024 Sally San C D STILL OPERATOR, C D STILL OPERATOR-C Attending Provider Active Start: October 10, 2024 End: October 10, 2024 Team Status: Inactive Member Role/Relationship Status Dates SANDEE Camilo Primary Care Provider Active S tart: November 21, 2024 End: November 21, 2024 SANDEE Camilo Referring Provider Active Star t: November 21, 2024 End: November 21, 2024 Sally San C D STILL OPERATOR, C D STILL OPERATOR-C Attending Provider Active Start: November 21, 2024 End: November 21, 2024 Team Status: Active Member Role/Relationship Status Dates Dr. Sahara Rosen MD Referring Provider Active Start: November 21, 2024 Dr. Luis Cooney MD Attending Provider Active Start: November 21, 2024 No Primary Care Physician Primary Care Provider Active Start: November 21, 2024 No Primary Care Physician Family Provider Active Start: November 21, 2024 Team Status: Active Member Role/Relationship Status Dates SANDEE Camilo Primary care physician Active Team Status: Inactive Member Role/Relationship Status Dates SANDEE Camilo Primary care physician Active Start: October 10, 2024 End: October 10, 2024 SANDEE Camilo Referring Provider Active Star t: October 10, 2024 End: October 10, 2024 Sally San C D STILL OPERATOR, C D STILL OPERATOR-C Attending physician Active Start: October 10, 2024 End: October 10, 2024 Team Status: Inactive Member Role/Relationship Status Dates SANDEE Camilo Primary care physician Active Start: November 21, 2024 End: November 21, 2024 SANDEE Camilo Referring Provider Active Star t: November 21, 2024 End: November 21, 2024 Sally San C D STILL OPERATOR, C D STILL OPERATOR-C Attending physician Active Start: November 21, 2024 End: November 21, 2024 Team Status: Inactive Member Role/Relationship Status Dates SANDEE Camilo Primary care physician Active Start: January 02, 2025 End: January 02, 2025 SANDEE Camilo Referring Provider Active Star t: January 02, 2025 End: January 02, 2025 Sally San C D STILL OPERATOR, C D STILL OPERATOR-C Attending physician Active Start: January 02, 2025 End: January 02, 2025 Team Status: Active Member Role/Relationship Status Dates Dr. Sahara Rosen MD Referring Provider Active Start: January 02, 2025 Dr. Luis Cooney MD Attending physician Active Start: January 02, 2025 No Primary Care Physician Primary care physician Activ e Start: January 02, 2025 Newspaper Writer Relationship Specialty Start Date End Date Emy Velez, VISUAL SPECIALIST-SOIL CONSERVATIONIST [address] [facility], [address] [place] [address] PCP - Employee ACO PCP 04/20/24 Newspaper Writer Relationship Specialty Start Date End Date Emy Velez APRN-CNP [address] [facility], [address] [place] [address] PCP - Employee ACO PCP 04/20/24 Goals (unrecognized section and content) Goals may be documented in a n alternate sectionGoals may be documented in an alternate sectionGoals may be documented in an alternate sectionGoals may be documented in an alternate sectionGoals may be documented in an alternate sectionGoals may be documented in an alternate sectionGoals may be documented in an alternate section Reason for Visit (unrecogniz ed section and content) Reason Comments [facility] an [facility] he had done Reason Comments Home Care Confirmation call Reason Comments Appointment Reason Comments Established Patient Follow Up Post Op Reason Comments Established Patient Follow Up Pain Post Op Reason Comments Established Patient Follow Up Reason Comments Follow-up FU 8 months, patient offers no complaints, labs were ordered patient forgot to get done.Colonoscopy done 5 years ago per patient. Specialty Diagnoses / Procedures Referred By Marilee harkins Referred To Contact Primary Care Procedures Follow Up In Primary Care Isiah Harding PA-C [address] [facility] [place] [address] Referral ID Status Reason Start Date Expiration Date Visits Re quested Visits Authorized [id number] Closed 07/04/2022 12/31/2022 1 1 Reason Comments Cyst Patient is self refe rral for neck cyst. Seen at [facility] on 07-13-23. Patient denies any pain or discharge and states the cyst has grown in size causing irritation when rubbing against shirt. Reason Comments Knee Pain Specialty Diagnoses / Procedures Referred By Marilee harkins Referred To Contact Radiology Diagnoses Chronic pain of both knees Procedures XR knee left 3 views Emy Velez, VISUAL SPECIALIST-SOIL CONSERVATIONIST [address] [facility] [place] [address] Referral ID Status Reason Start Date Expiration Date Visits Requested Visits Authorized [id number] Authorized Perform Procedure 12/01/2023 11/30/2024 1 1 Specialty Diagnoses / Procedures Referred By Contac t Referred To Contact Radiology Diagnoses Chronic pain of both knees Procedures XR femur left 2+ views Emy Velez, VISUAL SPECIALIST-SOIL CONSERVATIONIST [address] [facility] [place] [address] Referral ID Status Reason Start Date Expiration Date Visits Requested Visits Authorized [id number] Authorized Perform Procedure 12/01/2023 11/30/2024 1 1 Specialty Diagnoses / Procedures Referred By Contac t Referred To Contact Radiology Diagnoses Chronic pain of both knees Procedures XR knee right 3 views Emy Velez, VISUAL SPECIALIST-SOIL CONSERVATIONIST [address] [facility] [place] [address] Referral ID Status Reason Start Date Expiration Date Visits Requested Visits Authorized [id number] Authorized Perform Procedure 12/01/2023 11/30/2024 1 1 Reason Comments Pain WORSE THAN RIGHT KNE E Pain Specialty Diagnoses / Procedures Referred By Contac t Referred To Contact Orthopaedic Surgery / Orthopedic Surgery Diagnoses Arthritis of both knees Emy Velez, VISUAL SPECIALIST-SOIL CONSERVATIONIST [address] [facility] [place] [address] Referral ID Status Reason Start Date Expiration Date Visits Requested Visits Authorized [id number] Authorized Specialty Services Required 12/05/2023 12/04/2024 1 1 Reason Comments Establish Care Reason Comments Follow-up X-rays 3-4-25Last in j 9-24-24Pain rate 5 Follow-up X-rays 3-4-25Last 9- 24-24Pain rate 7-8 Pain X-rays 3-4-25Last 9- 24-24Pain rate 7-8 Reason Comments Follow-up Pain Reason Comments Follow-up Pain Reason Comments Pain Moving bibi of had, felt shoulder pain. New Patient Visit Moving bibi of had, felt shoulder pain. Source Comments (unrecognize d section and content) In the event this informatio n is protected by the Federal Confidentiality of Alcohol and Drug Abuse Patient Records regulations: The Federal rules restrict any use of the information to criminally investigate or prosecute any alcohol or drug abuse patient.[facility] the event this information is protected by the Federal Confidentiality of Alcohol and Drug Abuse Patient Records regulations: The Federal rules restrict any use of the information to criminally investigate or prosecute any alcohol or drug abuse patient.[facility] Hospital[facility] the event this information is protected by the Federal Confidentiality of Alcohol and Drug Abuse Patient Records regulations: The Federal rules restrict any use of the information to criminally investigate or prosecute any alcohol or drug abuse patient.[facility] Hospital[facility] the event this information is protected by the Federal Confidentiality of Alcohol and Drug Abuse Patient Records regulations: The Federal rules restrict any use of the information to criminally investigate or prosecute any alcohol or drug abuse patient.[facility] Hospital[facility] the event this information is protected by the Federal Confidentiality of Alcohol and Drug Abuse Patient Records regulations: The Federal rules restrict any use of the information to criminally investigate or prosecute any alcohol or drug abuse patient.[facility] Hospital[facility] the event this information is protected by the Federal Confidentiality of Alcohol and Drug Abuse Patient Records regulations: The Federal rules restrict any use of the information to criminally investigate or prosecute any alcohol or drug abuse patient.[facility] Hospital[facility] the event this information is protected by the Federal Confidentiality of Alcohol and Drug Abuse Patient Records regulations: The Federal rules restrict any use of the information to criminally investigate or prosecute any alcohol or drug abuse patient.[facility] FOR RECORDS PERTAINING TO PATIENTS WHO ARE OR HAVE BEEN ENROLLED IN A CHEMICAL DEPENDENCY/SUBSTANCEABUSE PROGRAM, SOME INFORMATION MAY BE OMITTED. This clinical summary was aggregated from multiple sources. Caution should be exercised in using it in the provision of clinical care. This summary normalizes information from multiple sources, and as a consequence, information in this document may materially change the coding, format and clinical context of patient data. In addition, data may be omitted in some cases. CLINICAL DECISIONS SHOULD BE BASED ON THE PRIMARY CLINICAL RECORDS. [facility] [employer] [facility]. provides no warranty or guarantee of the accuracy or completeness of information in this document.
== END | disposition home or self-care (01) ==
LOC: NM 07:14
PROVIDERS: PCP Physician Assistant; Referring Provider Internal Medicine Hematology & Oncology; Visit Provider Internal Medicine Hematology & Oncology
DX: C61 Malignant neoplasm of prostate (principal); C77.9 Secondary and unspecified malignant neoplasm of lymph node, unspecified; C79.51 Secondary malignant neoplasm of bone
CPT/HCPCS: 78306; A9503